=== PATIENT | male | born 1940 | race Caucasian/White ===

== ENCOUNTER 2018-08-16 19:40 | Inpatient (IN) ==
[2018-08-17] MEDS ORDERED: Melatonin 5 MG Tablet PO PRN (00:48)
[2018-08-17] MEDS ORDERED: Aluminum/Magnesium/Simethacone Susp 30 ML UDC PO PRN (00:48)
[2018-08-17] MEDS ORDERED: Acetaminophen 325 MG Tablet PO PRN (00:48)
[2018-08-17] MEDS ORDERED: Dextrose 50% in Water 50 ML Vial IV.PUSH PRN (00:53)
[2018-08-17] MEDS: Insulin NovoLOG Aspart Correctional Sugar Inj SQ SCH ×5 (04:05→20:46)
[2018-08-17] MEDS: Gabapentin 100 MG Capsule PO SCH ×2 (08:20→15:21)
[2018-08-17] MEDS: Amoxicillin/Clavulanate 875/125 MG Tablet PO SCH ×2 (09:00→21:52)
[2018-08-17] MEDS: Insulin Glargine Inj 1,000 UNITS/10 ML Vial SQ SCH ×2 (10:20→10:47)
--- NOTE | 2018-08-17 13:04 | P.HPPSY ---
Provisional Diagnosis Admission Date: August 17, 2018 00:37 Competence Certification of Person's Competence To Provide Express and Informed Consent I have personally examined Efra Ponce, a person being served at [facility] on, August 17, 2018 1257. Express and informed consent means consent voluntarily given in writing, by a competent person, after sufficient explanation and disclosure of the subject matter involved to enable the person to make a knowing and willful decision without any element of force, fraud, deceit, duress, or other form of constraint or coercion. This person is 18 years of age or older, is not now known to be incompetent to consent to treatment with a guardian advocate, and does not have a health care surrogate or proxy currently making medical treatment decisions. I have found this person to be one of the following: [X] Competent to provide express and informed consent, as defined above, for voluntary admission to this facility and is competent to provide express and informed consent for treatment. He/she has the consistent capacity to make well reasoned, willful, and knowing decisions concerning his or her medical or mental health treatment. The person fully and consistently understands the purpose of the admission for examination/placement and is fully capable of personally exercising all rights assured under [place] [] Incompetent to provide express and informed consent to voluntary admission, and this is incompetent to provide express and informed consent to treatment. The person must be transferred to involuntary status and a petition for a guardian advocate filed with the Circuit Court. [] Refusing to provide express and informed consent to voluntary admission but is competent to provide express and informed consent for treatment. The person must be discharged or transferred to involuntary status. Form shall be completed within 24 hours of a person's arrival at the receiving facility and filed in the clinical record of each person: 1. Admitted on a voluntary basis 2. Permitted to provide express and informed consent to his/her own treatment 3. Allowed to transfer from involuntary to voluntary status 4. Prior to permitting a person to consent to his or her own treatment after having been previously found incompetent to consent to treatment. History of Present Illness Capacity: Has capacity Chief Complaint: gout History of Present Illness: Patient is a 78-year-old male with a stated history of mood disorder. He is admitted to the hospital with suicidal ideation and plan to shoot himself with a gun. Today, patient admits to malingering for the purposes of getting medical treatment for his pain and his gout. Though, he is very circumstantial and a poor historian. Patient describes recent depressed mood. Says he has been he is feeling helpless and hopeless. He is complaining of generalized anxiety. Past psych: Patient used to see an outpatient psychiatrist named Dr. Arevalo. Patient claims that his psychiatrist told him to feign suicidal ideation to get treatment for mental health. Past medical: Gout. Medical medications include lisinopril, bumetanide, gabapentin, glipizide, Nitrostat, hydrocodone, aspirin, melatonin, fish oil, B12. Patient is asking for allopurinol, colchicine, indomethacin pain medication Past Famhx: "I do not know everybody ." Past Social: Patient has no family or children. Patient denies recent alcohol consumption but says he has a history of drinking - Inpatient Certification I certify that the inpatient services were ordered in accordance with Medicare regulations governing the order. This includes certification that hospital inpatient services are reasonable and necessary and in the case of services not specified as inpatient-only under 42 CFR 419.22(n), that they are appropriately provided as inpatient services in accordance to with the 2-midnight benchmark under 43 CFR 412.3(e) I certify that inpatient psychiatric hospital services are medically necessary. Evaluation and treatment and/or diagnostic testing are expected to improve the patient's condition. The patient needs on a daily basis, active treatment furnished directly by or requiring the supervision of inpatient psychiatric facility personnel. Estimated Total Length of Stay (Days): 7 Plans for Post Hospital Care: Not yet determined Review of Systems All other systems reviewed negative except as stated in [facility]PI [facility] - History History Provided By: Patient - Medical History Medical History: Medical History (Last Reviewed 08/17/18 @ 13:03 by Edgar Hill DO) Diabetes Gout Heart disease Hypokalemia - Tobacco History Second Hand Smoke Exposure: No Tobacco Use In Past 30 Days: No Smoking Status: Former smoker Tobacco Type: Cigarettes, Cigars - Alcohol History How Often Do You Have a Drink Containing Alcohol: Never - Substance Use History Substance History: No History of Abuse - Travel History Recent Travel in the [place] Within the Last 8 Weeks: No Recent Travel Out of the Country Within the Last 8 Weeks: No - Immunization History Tetanus Immunization: Unable to Assess Hx Influenza Vaccine This Season: Yes Medications and Allergies Active Medications: Active Medications Acetaminophen (Tylenol) 650 mg PO Q4H PRN PRN Reason: Pain 1-5 or Temp >101F Al Hydrox/Mg Hydrox/Simethicone (Mag-Al Plus Susp Liq) 30 ml PO Q6H PRN PRN Reason: DYSPEPSIA Al Hydroxide/Mg Hydroxide (Milk Of Magnesia Liq) 30 ml PO Q12H PRN PRN Reason: Mild Constipation Amoxicillin/Clavulanate Potassium (Augmentin 875/125 Mg) 1 tab PO Q12HR [facility] Last Admin: 08/17/18 09:00 Dose: 1 tab Aspirin (Ecotrin) 81 mg PO DAILY [facility] Last Admin: 08/17/18 08:21 Dose: 81 mg Cyanocobalamin (Vitamin B12) 100 mcg PO DAILY [facility] Last Admin: 08/17/18 09:00 Dose: 100 mcg Dextrose (D50w Vial) 50 ml IV.PUSH UNSCH PRN PRN Reason: PER HYPOGLYCEMIA PROTOCOL Doxycycline Hyclate (Vibramycin) 100 mg PO Q12HR [facility] Last Admin: 08/17/18 09:00 Dose: 100 mg Gabapentin (Neurontin) 100 mg PO TID [facility] Last Admin: 08/17/18 08:20 Dose: 100 mg Glucagon (Glucagon Inj) 1 mg OTHER PRN PRN PRN Reason: for Hypoglycemia Protocol Insulin Aspart (Novolog Insulin Correctional Sugar Inj) 0 unit SQ ACHS AND 3AM [facility]; Protocol Last Admin: 08/17/18 08:21 Dose: Not Given Insulin Glargine (Lantus Inj) 7 units SQ DAILY [facility] Last Admin: 08/17/18 10:47 Dose: 7 units Melatonin (Melatonin) 5 mg PO HS PRN PRN Reason: INSOMNIA Patient Own Med- (Omnicef 300mg) 0 each PO BID [facility] Allergies Allergy/AdvReac Type Severity Reaction Status Date / Time No Known Allergies Allergy Unverified 08/17/18 00:48 Home Medications Medication Instructions Recorded Confirmed Type amoxicillin-pot clavulanate 1 tab PO Q12H 08/17/18 08/17/18 History [Augmentin] aspirin 81 mg PO DAILY 08/17/18 08/17/18 History cefdinir 300 mg PO Q12H 08/17/18 08/17/18 History cyanocobalamin (vitamin B-12) 100 mcg PO DAILY 08/17/18 08/17/18 History doxycycline hyclate [Vibramycin] 100 mg PO BID 08/17/18 08/17/18 History gabapentin 100 mg PO Q8HR 08/17/18 08/17/18 History hydrocodone-acetaminophen 1 tab PO BID PRN 08/17/18 08/17/18 History insulin glargine [Lantus U-100 7 unit SUBCUT DAILY 08/17/18 08/17/18 History Insulin] omega-3 fatty acids-fish oil [Fish 1 cap PO DAILY 08/17/18 08/17/18 History Oil] Results - Labs Labs: Laboratory Results - last 24 hr 08/17/18 08/17/18 08/17/18 04:19 07:51 11:37 POC Glucose 107 106 107 Exam Vital signs: Vital Signs 08/16/18 23:00 08/17/18 05:15 Temperature 98.6 F 99.3 F Pulse Rate 83 83 Respiratory Rate 18 18 Blood Pressure 158/76 H 158/84 H Pulse Oximetry 92 L 92 L Intake & Output 08/16/18 08/17/18 08/17/18 18:59 06:59 18:59 Weight 110 kg Other: Date of Last Bowel Movement 08/15/18 Weight On Admission 110 kg Mental Status Examination Appearance: Appropriate Consciousness: Alert Orientation: x4 Motor Activity: Normal gait Speech: Unremarkable Language: Adequate Fund of Knowledge: Adequate Attention and Concentration: Adequate Memory: Unremarkable Mood: Sad Affect: Irritable Thought Process & Associations: Circumstantial Thought Content: Appropriate Hallucination Type: None Delusion Type: None Suicidal Ideation: No Suicidal Plan: No Suicidal Intention: No Homicidal Ideation: No Homicidal Plan: No Homicidal Intention: No Insight: Poor Judgment: Poor Assessment and Plan - Assessment (1) Mood disorder due to known physiological condition with depressive features Code(s): F06.31 - Mood disorder due to known physiological condition with depressive features Status: Acute - Plan Plan: Estimated LOS: [] days We will order lab work. Medicine will be consulted to reconcile his Nitrostat and gout medication and pain medication. Patient can sign voluntary. Justification for Continued Inpatient Stay: Patient would decompensate in a less restrictive setting
[2018-08-17] MEDS: OMNICEF 300 MG PO SCH ×2 (13:09→20:23)
[2018-08-17 14:54] LABS: Baso % (Auto) 0.4 % (0.0-2.0); Eos # (Auto) 0.2 th/mm3 (0.0-0.4); Eos % (Auto) 1.9 % (0.0-4.0); Lymph # (Auto) 0.6 th/mm3 (1.0-4.8); Lymph % (Auto) 7.8 % (9.0-44.0); Mean Corpuscular HGB Conc 34.3 % (32.0-36.0); Mean Corpuscular Hemoglobin 28.6 pg (27.0-34.0); Mean Corpuscular Volume 83.4 fL (80.0-100.0); Mean Platelet Volume 6.8 fL (7.0-11.0); Mono # (Auto) 0.6 th/mm3 (0.0-0.9); Mono % (Auto) 7.5 % (0.0-8.0); Neut # (Auto) 6.5 th/mm3 (1.8-7.7); Neut % (Auto) 82.4 % (16.0-70.0); Platelet Count 194 th/mm3 (150-450); Red Blood Count 3.47 mil/mm3 (4.50-5.90); Red Cell Distribution Width 15.2 % (11.6-17.2); White Blood Count 7.9 th/mm3 (4.0-11.0)
[2018-08-17 15:17] LABS: Alanine Aminotransferase 11 U/L (12-78); Albumin 2.3 g/dL (3.4-5.0); Anion Gap 8 meq/L (5-15); Aspartate Aminotransferase 13 U/L (15-37); Blood Urea Nitrogen 28 mg/dL (7-18); Calcium 8.1 mg/dL (8.5-10.1); Carbon Dioxide 23.7 meq/L (21.0-32.0); Chloride 109 meq/L (98-107); Glomerular Filtration Rate 41 mL/min (>89); Glucose,Random 143 mg/dL (74-106); Sodium 141 meq/L (136-145)
[2018-08-17 15:19] LABS: Alkaline Phosphatase 52 U/L (45-117); Total Protein 6.5 g/dL (6.4-8.2)
--- NOTE | 2018-08-17 16:43 | P.CON ---
History of Present Illness Service: [facility] Consult date: 08/17/18 Requesting Physician: Asif Bueno Reason for Consult: Determine need for pain medication and reconciliation of medication Primary Care Provider: No Primary Care Physician Chief Complaint: I am okay History of Present Illness: Patient is a 78-year-old male with past medical history of gout, HTN, DM 2 who initially came into the hospital for suicidal ideation. Per review of records patient plan to shoot himself with a gun. He is now admitted to inpatient psychiatry unit for further evaluation. Consulted for assistance with pain management. Patient seen and examined today laying in bed. Patient is asleep. Irritable when aroused. Started yelling "what he want, I am okay do not bother me." As per nursing, patient has been adamant of asking for his gout medication. He was not given any medications to sedate him. He got his gabapentin this morning but has not been given any pain medications or any anxiolytics. Review of Systems unobtainable due to mental status PMFSH - History History Provided By: Patient - Medical History Medical History: Medical History (Last Reviewed 08/17/18 @ 17:27 by ALLAN Dugan) Diabetes Gout Heart disease Hypokalemia - Social History I have reviewed the patient's Social History: Yes - Tobacco History Second Hand Smoke Exposure: No Tobacco Use In Past 30 Days: No Smoking Status: Former smoker Tobacco Type: Cigarettes, Cigars - Alcohol History How Often Do You Have a Drink Containing Alcohol: Never - Substance Use History Substance History: No History of Abuse - Travel History Recent Travel in the [place] Within the Last 8 Weeks: No Recent Travel Out of the Country Within the Last 8 Weeks: No - Immunization History Tetanus Immunization: Unable to Assess Hx Influenza Vaccine This Season: Yes Medications and Allergies Active Medications: Active Medications Acetaminophen (Tylenol) 650 mg PO Q4H PRN PRN Reason: Pain 1-5 or Temp >101F Al Hydrox/Mg Hydrox/Simethicone (Mag-Al Plus Susp Liq) 30 ml PO Q6H PRN PRN Reason: DYSPEPSIA Al Hydroxide/Mg Hydroxide (Milk Of Magnesia Liq) 30 ml PO Q12H PRN PRN Reason: Mild Constipation Amoxicillin/Clavulanate Potassium (Augmentin 875/125 Mg) 1 tab PO Q12HR [facility] Last Admin: 08/17/18 09:00 Dose: 1 tab Aspirin (Ecotrin) 81 mg PO DAILY [facility] Last Admin: 08/17/18 08:21 Dose: 81 mg Cyanocobalamin (Vitamin B12) 100 mcg PO DAILY [facility] Last Admin: 08/17/18 09:00 Dose: 100 mcg Dextrose (D50w Vial) 50 ml IV.PUSH UNSCH PRN PRN Reason: PER HYPOGLYCEMIA PROTOCOL Doxycycline Hyclate (Vibramycin) 100 mg PO Q12HR [facility] Last Admin: 08/17/18 09:00 Dose: 100 mg Gabapentin (Neurontin) 100 mg PO TID [facility] Last Admin: 08/17/18 15:21 Dose: Not Given Glucagon (Glucagon Inj) 1 mg OTHER PRN PRN PRN Reason: for Hypoglycemia Protocol Insulin Aspart (Novolog Insulin Correctional Sugar Inj) 0 unit SQ ACHS AND 3AM [facility]; Protocol Last Admin: 08/17/18 13:09 Dose: Not Given Insulin Glargine (Lantus Inj) 7 units SQ DAILY [facility] Last Admin: 08/17/18 10:47 Dose: 7 units Melatonin (Melatonin) 5 mg PO HS PRN PRN Reason: INSOMNIA Patient Own Med- (Omnicef 300mg) 0 each PO BID [facility] Last Admin: 08/17/18 13:09 Dose: Not Given Allergies Allergy/AdvReac Type Severity Reaction Status Date / Time No Known Allergies Allergy Unverified 08/17/18 00:48 Home Medications Medication Instructions Recorded Confirmed Type amoxicillin-pot clavulanate 1 tab PO Q12H 08/17/18 08/17/18 History [Augmentin] aspirin 81 mg PO DAILY 08/17/18 08/17/18 History cefdinir 300 mg PO Q12H 08/17/18 08/17/18 History cyanocobalamin (vitamin B-12) 100 mcg PO DAILY 08/17/18 08/17/18 History doxycycline hyclate [Vibramycin] 100 mg PO BID 08/17/18 08/17/18 History gabapentin 100 mg PO Q8HR 08/17/18 08/17/18 History hydrocodone-acetaminophen 1 tab PO BID PRN 08/17/18 08/17/18 History insulin glargine [Lantus U-100 7 unit SUBCUT DAILY 08/17/18 08/17/18 History Insulin] omega-3 fatty acids-fish oil [Fish 1 cap PO DAILY 08/17/18 08/17/18 History Oil] Physical Exam Vital signs: Vital Signs 08/16/18 23:00 08/17/18 05:15 Temperature 98.6 F 99.3 F Pulse Rate 83 83 Respiratory Rate 18 18 Blood Pressure 158/76 H 158/84 H Pulse Oximetry 92 L 92 L Intake & Output 08/16/18 08/17/18 08/17/18 18:59 06:59 18:59 Weight 110 kg Other: Date of Last Bowel Movement 08/15/18 Weight On Admission 110 kg Narrative: GENERAL: This is a obese, elder male, in no apparent distress. SKIN: Warm and dry. HEENT: Normocephalic. Nose without bleeding. Airway patent. NECK: Trachea midline. CARDIOVASCULAR: Regular rate and rhythm without murmurs, gallops, or rubs. RESPIRATORY:Breath sounds equal bilaterally. No wheezes, rales, or rhonchi. Snoring, GASTROINTESTINAL: Abdomen soft, non-tender, nondistended. Bowel Sounds normoactive x4. MUSCULOSKELETAL: Extremities without clubbing, cyanosis. Bilat foot trace edema. No notable joint erythema or significant edema in bilateral elbows, bilateral hands, bilateral knees, bilateral ankles, bilateral toes. NEUROLOGICAL: Drowsy. Moves all extremities. Normal speech. Assessment and Plan - Plan Patient is a 78-year-old male with past medical history of gout, HTN, DM 2 who initially came into the hospital for suicidal ideation. Per review of records patient plan to shoot himself with a gun. He is now admitted to inpatient psychiatry unit for further evaluation. Consulted for assistance with pain management. Suicidal ideation, depression, mood disorder -Managed by psychiatry team Gout Chronic pain -Does not appear to have a flareup. -Patient has possibly chronic pain on chronic pain management. [facility] Prescription Drug Monitoring Database has been queried and verified, noted that patient is on hydrocodone/acetaminophen 10/325 mg. -Patient is drowsy, can barely have a conversation. We will not start him on any pain medication. HTN, uncontrolled HLD -Continue with home medication aspirin -We will give Norvasc 5 mg daily -Monitor BP trend DM 2 Diabetic neuropathy -Continue with Lantus -Continue with insulin sliding scale -Monitor for hypoglycemia -On gabapentin, received a dose this morning. Will monitor and off secondary to sedation Urinary tract infection -Patient is on Augmentin, doxycycline from the outpatient. We will continue for now. -Repeat UA Acute kidney injury and possibly chronic kidney disease -Current creatinine 1.64. Unknown baseline. -If patient continues to be drowsy and unable to hydrate well. -IV fluids, monitor for overload -Avoid nephrotoxins -Monitor renal indices Lethargic -Possibly secondary to multiple factors, patient's increasing creatinine, as well as has gotten some medications this morning that could affect him. -02 supplement as needed, keep O2 sat greater than 90% -May benefit with transfer to medical psychiatry unit for closer monitoring, possible IV fluids use. DVT prop, heparin Discussed Condition With: Patient, nursing Discharge Planning: DC disposition by primary team
[2018-08-17] MEDS: Heparin - SQ 10,000 UNITS/ML Vial SQ SCH (21:52)
[2018-08-18] MEDS: Sod Chloride 0.9% Inj 1,000 ML IV.CONT SCH ×3 (04:56→21:03)
[2018-08-18] MEDS: Insulin NovoLOG Aspart Correctional Sugar Inj SQ SCH ×5 (04:57→20:43)
[2018-08-18 08:02] LABS: Baso % (Auto) 0.4 % (0.0-2.0); Eos # (Auto) 0.1 th/mm3 (0.0-0.4); Eos % (Auto) 1.2 % (0.0-4.0); Hematocrit 29.2 % (39.0-51.0); Hemoglobin 9.8 gm/dL (13.0-17.0); Lymph # (Auto) 0.6 th/mm3 (1.0-4.8); Lymph % (Auto) 7.2 % (9.0-44.0); Mean Corpuscular HGB Conc 33.6 % (32.0-36.0); Mean Corpuscular Volume 83.2 fL (80.0-100.0); Mean Platelet Volume 6.7 fL (7.0-11.0); Mono # (Auto) 0.6 th/mm3 (0.0-0.9); Mono % (Auto) 7.2 % (0.0-8.0); Platelet Count 200 th/mm3 (150-450); Red Blood Count 3.51 mil/mm3 (4.50-5.90); Red Cell Distribution Width 15.5 % (11.6-17.2); White Blood Count 8.3 th/mm3 (4.0-11.0)
[2018-08-18 08:23] LABS: Albumin 2.4 g/dL (3.4-5.0); Anion Gap 8 meq/L (5-15); Blood Urea Nitrogen 28 mg/dL (7-18); Calcium 8.3 mg/dL (8.5-10.1); Carbon Dioxide 22.7 meq/L (21.0-32.0); Chloride 110 meq/L (98-107); Glomerular Filtration Rate 49 mL/min (>89); Glucose,Random 100 mg/dL (74-106); Potassium 3.9 meq/L (3.5-5.1); Sodium 141 meq/L (136-145)
[2018-08-18 08:24] LABS: Aspartate Aminotransferase 16 U/L (15-37); Cholesterol 132 mg/dL (120-200); Triglycerides 114 mg/dL (42-150)
[2018-08-18 08:28] LABS: Alanine Aminotransferase 15 U/L (12-78); Alkaline Phosphatase 51 U/L (45-117); Chol/HDL Ratio 3.67 Ratio; HDL Cholesterol 35.9 mg/dL (40.0-60.0); LDL Cholesterol,Calculated 73 mg/dL (0-99); Total Protein 6.4 g/dL (6.4-8.2)
--- NOTE | 2018-08-18 08:30 | P.PN ---
Subjective Interval history: Follow-up visit gout flareup, DM 2, HTN. Patient seen and examined today. Awake alert. Forgetful. States that he knows he is at [facility]. States that he was transferred from [facility] and he thought that he was going to [facility] in [facility]. States he is taking Bumex twice a day at home for his kidneys and also taking potassium pills. Discussed with patient results of his labs having elevated kidney function. States that he was dehydrated for the past 2 days. But his main concern is bilateral elbow swelling and pain that has been bothering him. States that his doctor did not give him regular gout medications. Otherwise, denies SOB/ dyspnea. Denies chest pain, palpitations, headaches, dizziness. Denies fevers, chills, n/v/d. Denies dysuria. Physical Exam Vital signs: Vital Signs 08/17/18 17:52 08/17/18 19:13 08/18/18 06:21 Temperature 98.4 F 98.5 F 98.0 F Pulse Rate 70 79 87 Respiratory Rate 20 20 16 Blood Pressure 141/73 H 131/63 150/84 H Pulse Oximetry 94 L 98 08/18/18 07:47 Temperature Pulse Rate Respiratory Rate Blood Pressure Pulse Oximetry 97 Intake & Output 08/17/18 08/18/18 08/18/18 18:59 06:59 18:59 Intake Total 120 / 120 Balance 120 / 120 Weight 108.3 kg Intake: Oral 120 / 120 Other: # Voids 1 Narrative: GENERAL: This is a obese, elder male, in no apparent distress. SKIN: Warm and dry. HEENT: Normocephalic. Nose without bleeding. Airway patent. NECK: Trachea midline. CARDIOVASCULAR: Regular rate and rhythm without murmurs, gallops, or rubs. RESPIRATORY:Breath sounds equal bilaterally. No wheezes, rales, or rhonchi. Snoring, GASTROINTESTINAL: Abdomen soft, non-tender, nondistended. Bowel Sounds normoactive x4. MUSCULOSKELETAL: Extremities without clubbing, cyanosis. Bilat foot trace edema. Bilateral elbow erythema, edema, tenderness to light palpation. NEUROLOGICAL: Moves all extremities. Normal speech. Results - Labs CBC & Chem 7: 08/18/18 07:50 08/18/18 07:50 Laboratory Results - last 24 hr 08/17/18 08/17/1818 11:37 14:20 14:20 WBC 7.9 RBC 3.47 L Hgb 10.0 L Hct 29.0 L MCV 83.4 MCH 28.6 MCHC 34.3 RDW 15.2 Plt Count 194 MPV 6.8 L Neut % (Auto) 82.4 H Lymph % (Auto) 7.8 L [place] % (Auto) 7.5 Eos % (Auto) 1.9 Baso % (Auto) 0.4 Neut # (Auto) 6.5 Lymph # (Auto) 0.6 L [place] # (Auto) 0.6 Eos # (Auto) 0.2 Baso # (Auto) 0.0 WBC Differential . Differential Comment Auto diff final Sodium 141 Potassium 4.0 Chloride 109 H Carbon Dioxide 23.7 Anion Gap 8 BUN 28 H Creatinine 1.64 H Estimated GFR 41 L POC Glucose 107 Random Glucose 143 H Calcium 8.1 L Total Bilirubin 0.4 AST 13 L ALT 11 L Alkaline Phosphatase 52 Ammonia Total Protein 6.5 Albumin 2.3 L Triglycerides Cholesterol LDL Cholesterol, Calc HDL Cholesterol Cholesterol/HDL Ratio 08/17/18 08/17/18 08/17/18 14:55 20:26 20:30 WBC RBC Hgb Hct MCV MCH MCHC RDW Plt Count MPV Neut % (Auto) Lymph % (Auto) [place] % (Auto) Eos % (Auto) Baso % (Auto) Neut # (Auto) Lymph # (Auto) [place] # (Auto) Eos # (Auto) Baso # (Auto) WBC Differential Differential Comment Sodium Potassium Chloride Carbon Dioxide Anion Gap BUN Creatinine Estimated GFR POC Glucose 164 H 271 H 109 Random Glucose Calcium Total Bilirubin AST ALT Alkaline Phosphatase Ammonia Total Protein Albumin Triglycerides Cholesterol LDL Cholesterol, Calc HDL Cholesterol Cholesterol/HDL Ratio 08/18/18 08/18/18 08/18/18 00:27 04:25 07:43 WBC RBC Hgb Hct MCV MCH MCHC RDW Plt Count MPV Neut % (Auto) Lymph % (Auto) [place] % (Auto) Eos % (Auto) Baso % (Auto) Neut # (Auto) Lymph # (Auto) [place] # (Auto) Eos # (Auto) Baso # (Auto) WBC Differential Differential Comment Sodium Potassium Chloride Carbon Dioxide Anion Gap BUN Creatinine Estimated GFR POC Glucose 202 H 101 104 Random Glucose Calcium Total Bilirubin AST ALT Alkaline Phosphatase Ammonia Total Protein Albumin Triglycerides Cholesterol LDL Cholesterol, Calc HDL Cholesterol Cholesterol/HDL Ratio 08/18/18 08/18/18 08/18/18 07:50 07:50 07:50 WBC 8.3 RBC 3.51 L Hgb 9.8 L Hct 29.2 L MCV 83.2 MCH 28.0 MCHC 33.6 RDW 15.5 Plt Count 200 MPV 6.7 L Neut % (Auto) 84.0 H Lymph % (Auto) 7.2 L [place] % (Auto) 7.2 Eos % (Auto) 1.2 Baso % (Auto) 0.4 Neut # (Auto) 7.0 Lymph # (Auto) 0.6 L [place] # (Auto) 0.6 Eos # (Auto) 0.1 Baso # (Auto) 0.0 WBC Differential . Differential Comment Auto diff final Sodium 141 Potassium 3.9 Chloride 110 H Carbon Dioxide 22.7 Anion Gap 8 BUN 28 H Creatinine 1.41 H Estimated GFR 49 L POC Glucose Random Glucose 100 Calcium 8.3 L Total Bilirubin 0.5 AST 16 ALT 15 Alkaline Phosphatase 51 Ammonia 19 Total Protein 6.4 Albumin 2.4 L Triglycerides 114 Cholesterol 132 LDL Cholesterol, Calc 73 HDL Cholesterol 35.9 L Cholesterol/HDL Ratio 3.67 Assessment and Plan - Plan Patient is a 78-year-old male with past medical history of gout, HTN, DM 2 who initially came into the hospital for suicidal ideation. Per review of records patient plan to shoot himself with a gun. He is now admitted to inpatient psychiatry unit for further evaluation. Consulted for assistance with pain management. Suicidal ideation, depression, mood disorder -Managed by psychiatry team Gout Chronic pain -Does not appear to have a flareup. -Patient has possibly chronic pain on chronic pain management. [facility] [place] has been queried and verified, noted that patient is on hydrocodone/acetaminophen 10/325 mg. -Will give colchicine 1.2 mg x1 dose now, 0.6 mg an hour after. 0.6 mg daily times 3-5 days. -Monitor renal indicis. -Initiate allopurinol after at 100mg daily pos on DC -If needing pain meds, may benefit lower dose of norco 5/325 instead of 10/ 325 HTN, uncontrolled HLD -Continue with home medication aspirin -Norvasc 5 mg daily, clonidine PRN -Monitor BP trend DM 2 Diabetic neuropathy -Continue with Lantus, states he is not on infectible at home, may need to transition to PO -avoid metformin unless improved kidney function/ can use Januvia 50mg daily -Continue with insulin sliding scale -Monitor for hypoglycemia -On gabapentin, received a dose this morning. Will monitor and off secondary to sedation Urinary tract infection -Patient is on Augmentin, doxycycline from the outpatient. We will continue for now. -Repeat UA Acute kidney injury and possibly chronic kidney disease -Current creatinine 1.64. Unknown baseline. -IV fluids, monitor for overload -Avoid nephrotoxins -Monitor renal indices -States taking bumex BID, need to do med rec Episode of Lethargy - resolved -Possibly secondary to multiple factors, patient's increasing creatinine, as well as has gotten some medications this morning that could affect him. -02 supplement as needed, keep O2 sat greater than 90% -Avoid over sedation with narcotics and sedatives DVT prop, heparin patient does not remember all his medications. He will need med rec. He states he uses [facility] in [place]. Closed today. [facility] [place] [address], [place] [address] Code Status: Full Code Discussed Condition With: Patient, nursing Discharge Planning: DC disposition by primary team
[2018-08-18] MEDS: amLODIPine 5 MG Tablet PO SCH (08:43)
[2018-08-18] MEDS: Amoxicillin/Clavulanate 875/125 MG Tablet PO SCH ×2 (08:43→20:26)
[2018-08-18] MEDS: Heparin - SQ 10,000 UNITS/ML Vial SQ SCH ×2 (08:43→20:26)
[2018-08-18] MEDS: Gabapentin 100 MG Capsule PO SCH ×3 (08:43→17:57)
[2018-08-18] MEDS: OMNICEF 300 MG PO SCH ×2 (08:44→20:31)
[2018-08-18] MEDS: Insulin Glargine Inj 1,000 UNITS/10 ML Vial SQ SCH (09:14)
--- NOTE | 2018-08-18 14:00 | P.PNPSY ---
Subjective Chief Complaint: gout Remarks: Patient was seen and case discussed with nursing. Patient continues to be vague and not consistent with a suicidal ideation. When asked about it today he says "maybe I will get to it." Remains fixated on his gout. Affect is irritable Mental Status Examination Appearance: Appropriate Consciousness: Alert Orientation: x4 Motor Activity: Normal gait Speech: Unremarkable Language: Adequate Fund of Knowledge: Adequate Attention and Concentration: Adequate Memory: Unremarkable Mood: Appropriate Affect: Irritable Thought Process & Associations: Disorganized Thought Content: Appropriate Hallucination Type: None Delusion Type: None Suicidal Ideation: No Suicidal Plan: No Suicidal Intention: No Homicidal Ideation: No Homicidal Plan: No Homicidal Intention: No Insight: Poor Judgment: Poor Assessment and Plan - Assessment (1) Mood disorder due to known physiological condition with depressive features Code(s): F06.31 - Mood disorder due to known physiological condition with depressive features Status: Acute - Plan Plan: Continue current treatment plan Justification for Continued Inpatient Stay: Patient would decompensate in a less restrictive setting
[2018-08-18 14:20] LABS: Hemoglobin A1c 5.6 % (4.3-6.0)
--- NOTE | 2018-08-18 15:28 | ECG ---
Date Performed: 08/17/2018 Time Performed: 13:32:07 PTAGE: 78 years EKG: Sinus rhythm EXTREME RIGHT AXIS DEVIATION GENERALIZED LOW VOLTAGE RIGHT VENTRICULAR CONDUCTION DISTURBANCE NONSPE CIFIC T-WAVE CHANGE POOR R WAVE PROGRESSION ACROSS THE PRECORDIUM, CANNOT EXCLUDE ANTERIOR MYOCARDIAL INFARCTION , OF UNDETERMINED AGE ABNORMAL ECG NO PREVIOUS TRACING DOCTOR: Peter Manriquez Interpretating Date/Time 08/18/2018 15:26:50
[2018-08-19] MEDS: Insulin NovoLOG Aspart Correctional Sugar Inj SQ SCH ×4 (03:02→20:42)
[2018-08-19 08:13] LABS: Calcium 8.4 mg/dL (8.5-10.1); Carbon Dioxide 22.5 meq/L (21.0-32.0); Potassium 3.8 meq/L (3.5-5.1)
[2018-08-19] MEDS: Heparin - SQ 10,000 UNITS/ML Vial SQ SCH ×2 (09:22→20:31)
[2018-08-19] MEDS: Amoxicillin/Clavulanate 875/125 MG Tablet PO SCH ×2 (09:23→20:32)
[2018-08-19] MEDS: Insulin Glargine Inj 1,000 UNITS/10 ML Vial SQ SCH (09:23)
[2018-08-19] MEDS: Gabapentin 100 MG Capsule PO SCH ×2 (09:23→13:49)
[2018-08-19] MEDS: OMNICEF 300 MG PO SCH ×2 (09:23→20:32)
[2018-08-19] MEDS: amLODIPine 5 MG Tablet PO SCH ×2 (09:23→20:32)
[2018-08-19] MEDS: Sod Chloride 0.9% Inj 1,000 ML IV.CONT SCH (13:09)
--- NOTE | 2018-08-19 16:23 | P.PNPSY ---
Subjective Chief Complaint: gout Remarks: Patient seen for follow-up, chart reviewed. Discussion with nursing staff reported that patient noted to be forgetful at times, reporting suicide ideation last night, alert and oriented x3. Patient was found lying hospital bed noted to be slightly irritable but cooperative with interview. Patient recently admitted due to suicidal ideations with plan to shoot self was reporting feeling helpless and hopeless upon admission. Patient state he is feeling "the same" continues report feeling depressed because of his gout. Patient reports not having support with no family or friends. Patient states he has a history of depression and anxiety in the past which she reports and recalls only having taken Xanax in the past. Patient reports he had terrible sleep last night. Patient states "if I can get sleep and get got under control I would be suicidal". Patient states that he is concerned about his current medical conditions, alert and oriented x3, denying any suicidal homicidal ideation at this time. Patient denies any perceptional services. Review of Systems All other systems reviewed negative except as stated in HPI Mental Status Examination Appearance: Appropriate Consciousness: Alert Orientation: x4 Motor Activity: Normal gait Speech: Unremarkable Language: Adequate Fund of Knowledge: Adequate Attention and Concentration: Adequate Memory: Unremarkable Mood: Sad Affect: Irritable (Slightly), Sad Thought Process & Associations: Disorganized (At times mostly concrete) Thought Content: Appropriate Hallucination Type: None Delusion Type: None Suicidal Ideation: No Suicidal Plan: No Suicidal Intention: No Homicidal Ideation: No Homicidal Plan: No Homicidal Intention: No Insight: Poor Judgment: Poor Assessment and Plan - Assessment (1) Mood disorder due to known physiological condition with depressive features Code(s): F06.31 - Mood disorder due to known physiological condition with depressive features Status: Acute - Plan Plan: Patient this time reporting depressed mood related to his current medical conditions and endorsing suicide ideation still. We will start patient on sertraline 25 mg x1 and 50 mg p.o. daily thereafter for depression. We will also have diphenhydramine 25 mg at bedtime as needed for insomnia. We will continue to monitor mood and behavior. Hospitalist input appreciated. Discharge planning in progress. Justification for Continued Inpatient Stay: At risk of further decompensation at lower level care.
[2018-08-19] MEDS ORDERED: Sertraline 50 MG Tablet PO ONE (17:00)
--- NOTE | 2018-08-19 18:16 | P.PNIM ---
Subjective Interval history: Follow-up visit gout flareup, DM 2, HTN, heart disease, shortness of breath. Patient seen and examined laying in bed, denies any chest pain or shortness of breath at this time states that shortness of breath with exertion. Complains of bilateral elbow pain stated from his gout, complains he did not get his medication since admission. Patient stated he always have it which is chronic, also complained of right heel area pain, gout pain. Patient denies any fever or chills, denies headache or dizziness, denies diarrhea or constipation. Physical Exam Vital signs: Intake & Output 08/18/18 08/19/18 08/19/18 18:59 06:59 18:59 Intake Total 960 / 960 1600 / 1600 2200 / 2200 Balance 960 / 960 1600 / 1600 2200 / 2200 Intake: IV 1000 / 1000 1000 / 1000 NS Inj 1,000 ML @ 75 mls/hr IV. 1000 / 1000 1000 / 1000 CONT .[id number] ZEKE Rx#:[id number] Oral 960 / 960 600 / 600 1200 / 1200 Other: # Voids 5 3 Date of Last Bowel Movement 08/18/18 08/18/18 08/18/18 # Bowel Movements 2 Narrative: GENERAL: Well-developed, well-nourished, obese male with no apparent distress SKIN: Warm and dry. Bilateral elbow redness and edema, right heel redness and edema. Bilateral upper arm ecchymosis HEAD: Atraumatic. Normocephalic. EYES: Pupils equal and round. No scleral icterus. No injection or drainage. ENT: No nasal bleeding or discharge. Mucous membranes pink and moist. NECK: Trachea midline. No JVD. CARDIOVASCULAR: Regular rate and rhythm. RESPIRATORY: No accessory muscle use. Fine rails on bilateral lower lobes on auscultation. Breath sounds equal bilaterally. GASTROINTESTINAL: Abdomen obese, soft, non-tender, nondistended. Hepatic and splenic margins not palpable. MUSCULOSKELETAL: Extremities without clubbing, cyanosis. Bilateral lower extremity trace edema. No obvious deformities. NEUROLOGICAL: Awake and alert. No obvious cranial nerve deficits. Motor grossly within normal limits. Generalized weakness, moving all 4 extremities. Normal speech. PSYCHIATRIC: Appropriate mood and affect; insight and judgment unreliable, cooperative Results - Labs CBC & Chem 7: 08/18/18 07:50 08/19/18 07:17 Laboratory Results - last 24 hr 08/18/18 08/19/18 08/19/18 20:41 07:17 11:16 Sodium 143 Potassium 3.8 Chloride 112 H Carbon Dioxide 22.5 Anion Gap 9 BUN 22 H Creatinine 1.21 Estimated GFR 58 L POC Glucose 141 H 133 H Random Glucose 94 Calcium 8.4 L 08/19/18 16:33 Sodium Potassium Chloride Carbon Dioxide Anion Gap BUN Creatinine Estimated GFR POC Glucose 123 H Random Glucose Calcium Assessment and Plan - Assessment (1) Gout Code(s): M10.9 - Gout, unspecified Status: Acute (2) Hypertension Code(s): I10 - Essential (primary) hypertension Status: Acute (3) Mood disorder due to known physiological condition with depressive features Code(s): F06.31 - Mood disorder due to known physiological condition with depressive features Status: Acute - Plan Patient is a 78-year-old male with past medical history of gout, HTN, DM 2 who initially came into the hospital for suicidal ideation. Per review of records patient plan to shoot himself with a gun. He is now admitted to inpatient psychiatry unit for further evaluation. Consulted for assistance with pain management. Gout Chronic pain -Does not appear to have a flareup. -Patient has possibly chronic pain on chronic pain management. [facility] Prescription Drug Monitoring Database has been queried and verified, noted that patient is on hydrocodone/acetaminophen 10/325 mg. -Will give colchicine 1.2 mg x1 dose now, 0.6 mg an hour after. 0.6 mg daily times 3-5 days. -Monitor renal indicis. -Initiate allopurinol after at 100mg daily pos on DC -If needing pain meds, may benefit from ibuprofen if no hx of GI bleed Hx Heart Disease -no CP, c/o SOB on exertion -ECG Sinus rhythm -on O2 2L via NC -CXray to r/o effusion -continue Aspirin HTN, uncontrolled HLD BP Elevated -increase Norvasc 5 mg bid with hold parameters, clonidine PRN -Monitor BP trend DM 2 Diabetic neuropathy -Continue with Lantus, states he is not on infectible at home, may need to transition to PO -avoid metformin unless improved kidney function/ can use Januvia 50mg daily -Continue with insulin sliding scale -Monitor for hypoglycemia -On gabapentin, received a dose this morning. Will monitor and hold for sedation Urinary tract infection -Patient is on Augmentin, doxycycline from the outpatient. We will continue for now. -Repeat UA if symptoms persist Acute kidney injury and possibly chronic kidney disease -creatinine improving 1.64 on admission, today 1.21. Unknown baseline. -s/p IV fluids, discontinued for fine rales, monitor for overload -Avoid nephrotoxins -Monitor renal indices -States taking Bumex BID, not listed on med rec, needs to reconcile med Episode of Lethargy - resolved -Possibly secondary to multiple factors, patient's increasing creatinine, or most likely effect from sedative medications -02 supplement as needed, keep O2 sat greater than 90% -Avoid over sedation with narcotics and sedatives Suicidal ideation, depression, mood disorder -Managed by psychiatry team DVT prop, heparin Code Status: full code Discussed Condition With: patient and nurse
--- NOTE | 2018-08-19 18:39 | XR ---
EXAM DATE: 08/19/2018 12:00 AM EDT AGE/SEX: 78 years / Male INDICATIONS: Short of breath CLINICAL DATA: This is the patient's initial encounter. Patient reports that signs and symptoms have been present for 2 days and indicates a pain score of 0/10. MEDICAL/SURGICAL HISTORY: Congestive heart failure. None. COMPARISON: No prior exams available for comparison. FINDINGS: Mild basilar opacity, probably atelectasis. Trace pleural fluid. No pneumothorax. Heart size enlarged . CONCLUSION: Mild basilar opacity, probably subsegmental atelectasis with trace pleural fluid. Electronically signed by: Daniel Parada MD 08/19/2018 6:37 PM EDT
[2018-08-20] MEDS: Gabapentin 100 MG Capsule PO SCH ×5 (10:35→19:01)
[2018-08-20] MEDS: Insulin NovoLOG Aspart Correctional Sugar Inj SQ SCH ×4 (10:35→21:07)
[2018-08-20] MEDS: Heparin - SQ 10,000 UNITS/ML Vial SQ SCH ×2 (10:36→22:19)
[2018-08-20] MEDS: Sertraline 50 MG Tablet PO SCH (10:36)
[2018-08-20] MEDS: OMNICEF 300 MG PO SCH ×2 (10:37→22:20)
[2018-08-20] MEDS: Amoxicillin/Clavulanate 875/125 MG Tablet PO SCH ×2 (10:37→22:19)
[2018-08-20] MEDS: amLODIPine 5 MG Tablet PO SCH ×2 (10:37→22:20)
[2018-08-20] MEDS: Insulin Glargine Inj 1,000 UNITS/10 ML Vial SQ SCH (10:37)
--- NOTE | 2018-08-20 15:54 | P.PNPSY ---
Subjective Chief Complaint: gout Remarks: Patient seen for follow up; chart reviewed. Discussion with nursing staff that patient had difficulty sleeping last evening, patient with physical therapy today reporting less pain today. Patient was found sitting hospital chair asleep was able to wake up for interview noted to be irritable stating that he did not sleep at all less evening he states that he continued to have pain from his gout but it is "easing up". Patient reports having had some loose stools, states that his mood has been the same stating "if I get no sleep I am grumpy". Patient denying any suicide ideations at this time. Review of Systems All other systems reviewed negative except as stated in HPI Mental Status Examination Appearance: Appropriate Consciousness: Alert Orientation: x4 Motor Activity: Normal gait Speech: Unremarkable Language: Adequate Fund of Knowledge: Adequate Attention and Concentration: Adequate Memory: Unremarkable Mood: Irritable Affect: Irritable (Slightly) Thought Process & Associations: Disorganized (At times mostly concrete) Thought Content: Appropriate Hallucination Type: None Delusion Type: None Suicidal Ideation: No Suicidal Plan: No Suicidal Intention: No Homicidal Ideation: No Homicidal Plan: No Homicidal Intention: No Insight: Poor Judgment: Poor Assessment and Plan - Assessment (1) Mood disorder due to known physiological condition with depressive features Code(s): F06.31 - Mood disorder due to known physiological condition with depressive features Status: Acute - Plan Plan: Patient this time continues with irritability due to poor sleep less evening denying any suicide ideations stating that his gout pain is improving. We will continue current treatment. We will increase diphenhydramine to 50 mg p.o. at bedtime for sleep disturbance. We will continue to monitor mood and behavior. Discharge planning in progress. Justification for Continued Inpatient Stay: At risk of further decompensation at lower level care.
--- NOTE | 2018-08-20 19:07 | P.PNIM ---
Subjective Interval history: Follow-up visit gout flareup, DM 2, HTN, heart disease, shortness of breath. Patient seen and examined laying in bed, denies any shortness of breath at this time, off of oxygen. Patient denies any headache or dizziness, denies any chest pain, abdominal pain, nausea or vomiting. Patient complained of left elbow pain from the gout however improved from yesterday. Stated the right elbow is better. Physical Exam Vital signs: Vital Signs 08/19/18 19:27 08/20/18 06:00 08/20/18 09:06 Temperature 98.5 F Pulse Rate 82 Respiratory Rate 17 Blood Pressure 184/92 H Pulse Oximetry 96 95 97 08/20/18 17:49 08/20/18 18:26 Temperature 98.1 F Pulse Rate 70 Respiratory Rate 17 Blood Pressure 142/65 H Pulse Oximetry 97 93 L Intake & Output 08/19/18 08/20/18 08/20/18 18:59 06:59 18:59 Intake Total 2200 / 2200 720 / 720 720 / 720 Output Total 2 / 2 Balance 2200 / 2200 720 / 720 718 / 718 Weight 109.4 kg Intake: IV 1000 / 1000 NS Inj 1,000 ML @ 75 mls/hr IV. 1000 / 1000 CONT .[id number] ZEKE Rx#:[id number] Oral 1200 / 1200 720 / 720 720 / 720 Output: Urine 2 / 2 Other: # Voids 2 Date of Last Bowel Movement 08/18/18 08/18/18 08/20/18 # Incontinent Bowel Movements 1 Narrative: GENERAL: Well-developed, well-nourished, obese male with no apparent distress SKIN: Warm and dry. Left elbow redness and edema, right elbow redness improved , right heel redness improved. Bilateral upper arm ecchymosis HEAD: Atraumatic. Normocephalic. EYES: Pupils equal and round. No scleral icterus. No injection or drainage. ENT: No nasal bleeding or discharge. Mucous membranes pink and moist. NECK: Trachea midline. No JVD. CARDIOVASCULAR: Regular rate and rhythm. RESPIRATORY: No accessory muscle use. Fine rails on bilateral lower lobes on auscultation. Breath sounds equal bilaterally. GASTROINTESTINAL: Abdomen obese, soft, non-tender, nondistended. Hepatic and splenic margins not palpable. MUSCULOSKELETAL: Extremities without clubbing, cyanosis. Bilateral lower extremity trace edema. No obvious deformities. NEUROLOGICAL: Awake and alert. No obvious cranial nerve deficits. Motor grossly within normal limits. Generalized weakness, moving all 4 extremities. Normal speech. PSYCHIATRIC: Appropriate mood and affect; insight and judgment unreliable, cooperative Results - Labs CBC & Chem 7: 08/18/18 07:50 08/19/18 07:17 Laboratory Results - last 24 hr 08/19/18 08/20/18 08/20/18 20:38 11:35 16:51 POC Glucose 125 H 122 H 112 H Assessment and Plan - Assessment (1) Gout Code(s): M10.9 - Gout, unspecified Status: Acute (2) Hypertension Code(s): I10 - Essential (primary) hypertension Status: Acute (3) Mood disorder due to known physiological condition with depressive features Code(s): F06.31 - Mood disorder due to known physiological condition with depressive features Status: Acute - Plan Patient is a 78-year-old male with past medical history of gout, HTN, DM 2 who initially came into the hospital for suicidal ideation. Per review of records patient plan to shoot himself with a gun. He is now admitted to inpatient psychiatry unit for further evaluation. Consulted for assistance with pain management. Gout Chronic pain -Does not appear to have a flareup. -Patient has possibly chronic pain on chronic pain management. [facility] Prescription Drug Monitoring Database has been queried and verified, noted that patient is on hydrocodone/acetaminophen 10/325 mg. -Will give colchicine 1.2 mg x1 dose now, 0.6 mg an hour after. 0.6 mg daily times 3-5 days. -Monitor renal indicis. -Initiate allopurinol after at 100mg daily pos on DC -check uric acid level Hx Heart Disease -no CP, c/o SOB on exertion -ECG Sinus rhythm -on O2 2L via NC -CXray: Mild mild basilar opacity, probably subsegmental atelectasis with trace pleural fluid -continue Aspirin -Add low-dose Lasix and potassium for 3 days, monitor BMP HTN, uncontrolled HLD BP Elevated -increase Norvasc 5 mg bid with hold parameters, clonidine PRN -Monitor BP trend DM 2 Diabetic neuropathy -Continue with Lantus, states he is not on infectible at home, may need to transition to PO -avoid metformin unless improved kidney function/ can use Januvia 50mg daily -Continue with insulin sliding scale -Monitor for hypoglycemia, blood glucose fair controlled -On gabapentin, received a dose this morning. Will monitor and hold for sedation Urinary tract infection -Patient is on Augmentin, doxycycline from the outpatient. We will continue for now. -Repeat UA if symptoms persist Acute kidney injury and possibly chronic kidney disease -creatinine improving 1.64 on admission, today 1.21. Unknown baseline. -s/p IV fluids, discontinued for fine rales, monitor for overload -Avoid nephrotoxins -Monitor renal indices -States taking Bumex BID, not listed on med rec, needs to reconcile med Episode of Lethargy - resolved -Possibly secondary to multiple factors, patient's increasing creatinine, or most likely effect from sedative medications -02 supplement as needed, keep O2 sat greater than 90% -Avoid over sedation with narcotics and sedatives Suicidal ideation, depression, mood disorder -Managed by psychiatry team DVT prop, heparin Code Status: full code Discussed Condition With: patient and nurse
[2018-08-21] MEDS: Insulin NovoLOG Aspart Correctional Sugar Inj SQ SCH ×6 (03:29→20:45)
[2018-08-21] MEDS: Furosemide 20 MG Tablet PO SCH (08:43)
[2018-08-21] MEDS: Heparin - SQ 10,000 UNITS/ML Vial SQ SCH ×2 (08:43→20:43)
[2018-08-21] MEDS: Sertraline 50 MG Tablet PO SCH (08:43)
[2018-08-21] MEDS: OMNICEF 300 MG PO SCH ×2 (08:44→20:44)
[2018-08-21] MEDS: Amoxicillin/Clavulanate 875/125 MG Tablet PO SCH ×2 (08:44→20:46)
[2018-08-21] MEDS: amLODIPine 5 MG Tablet PO SCH ×2 (08:44→20:43)
[2018-08-21] MEDS: Gabapentin 100 MG Capsule PO SCH ×3 (08:44→17:57)
[2018-08-21] MEDS: Insulin Glargine Inj 1,000 UNITS/10 ML Vial SQ SCH (08:45)
[2018-08-21 12:22] LABS: Bacteria,Urine Occasional /hpf; Bilirubin,Urine Negative (Negative); Clarity,Urine Hazy (Clear); Color,Urine Yellow (Yellw/Straw); Glucose,Urine (UA) Negative (Negative); Hyaline Casts,Urine 1 /lpf (0-3); Leukocyte Esterase,Urine Negative (Negative); Mucus,Urine Few /lpf (Occasional); Nitrite,Urine Negative (Negative); Specific Gravity,Urine 1.015 (1.002-1.035); Squamous Epithelial Cell,Urine 1 /hpf (0-5)
--- NOTE | 2018-08-21 18:30 | P.PNIM ---
Subjective Interval history: Follow-up visit gout flare-up, DM 2, HTN, heart disease, shortness of breath. Patient seen and examined, laying in bed, stated above feeling better. However feeling nauseated today. Patient stated was not able to eat his breakfast. Patient did not denies any abdominal pain, vomiting, diarrhea or constipation. Patient denies any fever or chills. Physical Exam Vital signs: Vital Signs 08/20/18 18:26 08/21/18 05:05 Temperature 98.1 F 98.3 F Pulse Rate 70 77 Respiratory Rate 17 18 Blood Pressure 142/65 H 161/77 H Pulse Oximetry 93 L 94 L Intake & Output 08/20/18 08/21/18 08/21/18 18:59 06:59 18:59 Intake Total 720 / 720 240 / 240 Output Total 2 / 2 100 / 100 Balance 718 / 718 -100 / -100 240 / 240 Intake: Oral 720 / 720 240 / 240 Output: Urine 2 / 2 100 / 100 Other: Date of Last Bowel Movement 08/20/18 08/20/18 08/20/18 Narrative: GENERAL: Well-developed, well-nourished, obese, male with no apparent distress SKIN: Warm and dry. Left elbow redness and edema, right elbow redness improved , right heel redness improved. Bilateral upper arm ecchymosis improved HEAD: Atraumatic. Normocephalic. EYES: Pupils equal and round. No scleral icterus. No injection or drainage. ENT: No nasal bleeding or discharge. Mucous membranes pink and moist. NECK: Trachea midline. No JVD. CARDIOVASCULAR: Regular rate and rhythm. RESPIRATORY: No accessory muscle use. Fine rails on bilateral lower lobes on auscultation. Breath sounds equal bilaterally. GASTROINTESTINAL: Abdomen obese, soft, non-tender, nondistended. Hepatic and splenic margins not palpable. MUSCULOSKELETAL: Extremities without clubbing, cyanosis. Bilateral lower extremity trace edema. No obvious deformities. NEUROLOGICAL: Awake and alert. No obvious cranial nerve deficits. Motor grossly within normal limits. Generalized weakness, moving all 4 extremities. Normal speech. PSYCHIATRIC: Appropriate mood and affect; insight and judgment unreliable, cooperative Results - Labs CBC & Chem 7: 08/18/18 07:50 08/19/18 07:17 Laboratory Results - last 24 hr 08/20/18 08/21/18 08/21/18 20:14 03:27 06:14 POC Glucose 130 H 135 H 121 H Uric Acid Urine Color Urine Clarity Urine pH Ur Specific [place] Urine Protein Urine Glucose (UA) Urine Ketones Urine Occult Blood Urine Nitrate Urine Bilirubin Urine Urobilinogen Ur Leukocyte Esterase Urine RBC Urine WBC Ur Squamous Epith Cells Urine Bacteria Hyaline Casts Urine Mucus Micro UA Comment Ur Microscopic Review Urine Culture Comments 08/21/18 08/21/18 08/21/18 07:16 11:00 17:40 POC Glucose 91 Uric Acid 7.4 H Urine Color Yellow Urine Clarity Hazy H Urine pH 5.0 Ur Specific [place] 1.015 Urine Protein 100 H Urine Glucose (UA) Negative Urine Ketones Trace H Urine Occult Blood Moderate H Urine Nitrate Negative Urine Bilirubin Negative Urine Urobilinogen Less than 2 Ur Leukocyte Esterase Negative Urine RBC 3 Urine WBC 2 Ur Squamous Epith Cells 1 Urine Bacteria Occasional H Hyaline Casts 1 Urine Mucus Few H Micro UA Comment Cath-culture ind Ur Microscopic Review Not Reportable Urine Culture Comments Cath-cult indicated Assessment and Plan - Assessment (1) Gout Code(s): M10.9 - Gout, unspecified Status: Acute (2) Hypertension Code(s): I10 - Essential (primary) hypertension Status: Acute (3) Mood disorder due to known physiological condition with depressive features Code(s): F06.31 - Mood disorder due to known physiological condition with depressive features Status: Acute - Plan Patient is a 78-year-old male with past medical history of gout, HTN, DM 2 who initially came into the hospital for suicidal ideation. Per review of records patient plan to shoot himself with a gun. He is now admitted to inpatient psychiatry unit for further evaluation. Consulted for assistance with pain management. Gout, acute on chronic Chronic pain -Does not appear to have a flareup. -Patient has possibly chronic pain on chronic pain management. [facility] Prescription Drug Monitoring Database has been queried and verified, noted that patient is on hydrocodone/acetaminophen 10/325 mg. -Will give colchicine 1.2 mg x1 dose now, 0.6 mg an hour after. 0.6 mg daily times 3-5 days. -Monitor renal indicis. -uric acid level slightly elevated, 7.4 -start allopurinol low dose Hx Heart Disease -no CP, c/o SOB on exertion -ECG Sinus rhythm -on O2 2L via NC -CXray: Mild mild basilar opacity, probably subsegmental atelectasis with trace pleural fluid -continue Aspirin -Add low-dose Lasix and potassium for 3 days, monitor BMP HTN, uncontrolled HLD BP Elevated -increase Norvasc 5 mg bid with hold parameters, clonidine PRN -Monitor BP trend -add prn clonidine for SBP>160, DBP>90 DM 2 Diabetic neuropathy -Continue with Lantus, states he is not on infectible at home, may need to transition to PO -avoid metformin unless improved kidney function/ can use Januvia 50mg daily -Continue with insulin sliding scale -Monitor for hypoglycemia, blood glucose fair controlled -On gabapentin, received a dose this morning. Will monitor and hold for sedation Urinary tract infection -Patient is on Augmentin, doxycycline from the outpatient. We will continue for now. -Repeat UA if symptoms persist Acute kidney injury and possibly chronic kidney disease -creatinine improving 1.64 on admission, today 1.21. Unknown baseline. -s/p IV fluids, discontinued for fine rales, monitor for overload -Avoid nephrotoxins -Monitor renal indices -States taking Bumex BID, not listed on med rec, needs to reconcile med Episode of Lethargy - resolved -Possibly secondary to multiple factors, patient's increasing creatinine, or most likely effect from sedative medications -02 supplement as needed, keep O2 sat greater than 90% -Avoid over sedation with narcotics and sedatives Suicidal ideation, depression, mood disorder -Managed by psychiatry team DVT prop, heparin Code Status: full code Discussed Condition With: patient and nurse
--- NOTE | 2018-08-21 22:29 | P.PNPSY ---
Subjective Chief Complaint: gout Remarks: Patient seen for follow-up, chart reviewed. Discussion with nursing staff reported that patient patient again did not sleep last evening but had been noted to be sleeping all day during the day yesterday. Patient states that his pain from his gout is improving. Patient was found sitting hospital bed noted to be irritable again but stating that he had not slept last evening as well. 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 Patient states that he has been retired for over a decade now. Patient reports that he is not depressed, denying any suicidal ideation stating the last time was the first thing which he arrived to the ED. He denies any previous suicide attempts. Patient states "if I could get rid of the gout I will be fine and I want to go home". Patient reported some nausea. Patient again stating that he was told by his outpatient psychiatrist to [place] act himself in order to seek medical attention at a hospital. Patient refused worked with physical therapy this morning but physical therapy stated in previous encounters patient is practically full assist and will require rehabilitation post discharge. Patient was reviewed with the importance of rehabilitation as assessed by physical therapy and agreed to go to a retirement facility. Review of Systems All other systems reviewed negative except as stated in HPI Mental Status Examination Appearance: Appropriate Consciousness: Alert Orientation: x4 Motor Activity: Normal gait Speech: Unremarkable Language: Adequate Fund of Knowledge: Adequate Attention and Concentration: Adequate Memory: Unremarkable Mood: Irritable (Lessening) Affect: Irritable (Slightly) Thought Process & Associations: Intact Thought Content: Appropriate Hallucination Type: None Delusion Type: None Suicidal Ideation: No Suicidal Plan: No Suicidal Intention: No Homicidal Ideation: No Homicidal Plan: No Homicidal Intention: No Insight: Poor Judgment: Poor Assessment and Plan - Assessment (1) Mood disorder due to known physiological condition with depressive features Code(s): F06.31 - Mood disorder due to known physiological condition with depressive features Status: Acute - Plan Plan: Patient continues some irritability but mostly focused on pain from his account which he states is improving. Patient denies any suicide ideation at this time. Continue current treatment. Continue to monitor mood and behavior. Patient will likely require referral to a retirement facility for rehab. Justification for Continued Inpatient Stay: At risk of further decompensation at lower level care.
[2018-08-22] MEDS: Insulin NovoLOG Aspart Correctional Sugar Inj SQ SCH ×5 (02:51→20:36)
[2018-08-22] MEDS ORDERED: Famotidine 20 MG Tablet PO SCH (09:00)
[2018-08-22] MEDS: Gabapentin 100 MG Capsule PO SCH ×3 (09:16→20:36)
[2018-08-22] MEDS: Allopurinol 100 MG Tablet PO SCH (09:16)
[2018-08-22] MEDS: Sertraline 50 MG Tablet PO SCH (09:16)
[2018-08-22] MEDS: amLODIPine 5 MG Tablet PO SCH ×2 (09:16→20:35)
[2018-08-22] MEDS: Amoxicillin/Clavulanate 875/125 MG Tablet PO SCH (09:17)
[2018-08-22] MEDS: Heparin - SQ 10,000 UNITS/ML Vial SQ SCH ×2 (09:17→20:36)
[2018-08-22] MEDS: Furosemide 20 MG Tablet PO SCH (09:17)
[2018-08-22] MEDS: OMNICEF 300 MG PO SCH ×2 (09:18→20:36)
[2018-08-22] MEDS: Insulin Glargine Inj 1,000 UNITS/10 ML Vial SQ SCH (09:18)
[2018-08-22 11:09] LABS: Baso % (Auto) 0.5 % (0.0-2.0); Eos # (Auto) 0.1 th/mm3 (0.0-0.4); Eos % (Auto) 0.8 % (0.0-4.0); Hematocrit 33.1 % (39.0-51.0); Lymph # (Auto) 0.8 th/mm3 (1.0-4.8); Lymph % (Auto) 8.9 % (9.0-44.0); Mean Corpuscular HGB Conc 33.2 % (32.0-36.0); Mean Corpuscular Hemoglobin 27.9 pg (27.0-34.0); Mean Platelet Volume 6.5 fL (7.0-11.0); Mono # (Auto) 0.5 th/mm3 (0.0-0.9); Mono % (Auto) 5.8 % (0.0-8.0); Neut # (Auto) 7.7 th/mm3 (1.8-7.7); Platelet Count 268 th/mm3 (150-450); Red Blood Count 3.94 mil/mm3 (4.50-5.90); Red Cell Distribution Width 15.1 % (11.6-17.2); White Blood Count 9.2 th/mm3 (4.0-11.0)
[2018-08-22 11:32] LABS: Calcium 8.8 mg/dL (8.5-10.1); Carbon Dioxide 19.8 meq/L (21.0-32.0); Potassium 3.9 meq/L (3.5-5.1)
--- NOTE | 2018-08-22 17:15 | P.PNIM ---
Subjective Interval history: Follow-up visit gout flare-up, DM 2, HTN, heart disease, shortness of breath. Patient seen and examined, sitting at the bedside, stated unable to eat breakfast, complains of nausea, and no appetite. Patient denies any pain, chest pain or shortness of breath. Other than the left elbow which is getting better, stated right elbow is a lot better, with the pain gone. Patient stated he was taking Bumex before at home 2 times a day, and it was prescribed by her student teaching coordinator Dr. Slaughter. Patient stated that the Lasix does not work for him. Patient stated he is not being as much hair as he does at home the Bumex. Discussed with the nurse to verify medication from his pharmacy for the dose. Physical Exam Vital signs: Vital Signs 08/21/18 18:43 08/22/18 05:49 Temperature 97.3 F L 99.2 F Pulse Rate 107 H 84 Respiratory Rate 18 16 Blood Pressure 169/74 H 150/68 H Pulse Oximetry 94 L 93 L Intake & Output 08/21/18 08/22/18 08/22/18 18:59 06:59 18:59 Intake Total 240 / 240 395 / 395 240 / 240 Output Total 300 / 300 Balance 240 / 240 395 / 395 -60 / -60 Intake: Oral 240 / 240 395 / 395 240 / 240 Output: Urine 300 / 300 Other: # Voids 1 1 Date of Last Bowel Movement 08/20/18 08/20/18 Narrative: GENERAL: Well-developed, well-nourished, obese, male with no apparent distress SKIN: Warm and dry. Left elbowslight redness and trace edema, right elbow redness improved, right heel redness improved. Bilateral upper arm ecchymosis improved HEAD: Atraumatic. Normocephalic. EYES: Pupils equal and round. No scleral icterus. No injection or drainage. ENT: No nasal bleeding or discharge. Mucous membranes pink and moist. NECK: Trachea midline. No JVD. CARDIOVASCULAR: Regular rate and rhythm. RESPIRATORY: No accessory muscle use. Fine rails on bilateral lower lobes on auscultation. Breath sounds equal bilaterally. GASTROINTESTINAL: Abdomen obese, soft, non-tender, nondistended. Hepatic and splenic margins not palpable. MUSCULOSKELETAL: Extremities without clubbing, cyanosis. Bilateral lower extremity trace edema. No obvious deformities. NEUROLOGICAL: Awake and alert. No obvious cranial nerve deficits. Motor grossly within normal limits. Generalized weakness, moving all 4 extremities. Normal speech. PSYCHIATRIC: Appropriate mood and affect; insight and judgment unreliable, cooperative Results - Labs CBC & Chem 7: 08/22/18 09:58 08/22/18 09:58 Laboratory Results - last 24 hr 08/21/18 08/22/18 08/22/18 17:40 06:26 09:58 WBC 9.2 RBC 3.94 L Hgb 11.0 L Hct 33.1 L MCV 84.0 MCH 27.9 MCHC 33.2 RDW 15.1 Plt Count 268 D MPV 6.5 L Neut % (Auto) 84.0 H Lymph % (Auto) 8.9 L Kleberg % (Auto) 5.8 Eos % (Auto) 0.8 Baso % (Auto) 0.5 Neut # (Auto) 7.7 Lymph # (Auto) 0.8 L Kleberg # (Auto) 0.5 Eos # (Auto) 0.1 Baso # (Auto) 0.0 WBC Differential . Differential Comment Auto diff final Sodium Potassium Chloride Carbon Dioxide Anion Gap BUN Creatinine Estimated GFR POC Glucose 91 81 Random Glucose Calcium 08/22/18 09:58 WBC RBC Hgb Hct MCV MCH MCHC RDW Plt Count MPV Neut % (Auto) Lymph % (Auto) Kleberg % (Auto) Eos % (Auto) Baso % (Auto) Neut # (Auto) Lymph # (Auto) Kleberg # (Auto) Eos # (Auto) Baso # (Auto) WBC Differential Differential Comment Sodium 142 Potassium 3.9 Chloride 110 H Carbon Dioxide 19.8 L Anion Gap 12 BUN 18 Creatinine 1.07 Estimated GFR 67 L POC Glucose Random Glucose 73 L Calcium 8.8 Microbiology 08/21/18 11:00 Catheterized Urine Urine Culture - Preliminary No growth in 24 hours Assessment and Plan - Assessment (1) Gout Code(s): M10.9 - Gout, unspecified Status: Acute (2) Hypertension Code(s): I10 - Essential (primary) hypertension Status: Acute (3) Mood disorder due to known physiological condition with depressive features Code(s): F06.31 - Mood disorder due to known physiological condition with depressive features Status: Acute - Plan Patient is a 78-year-old male with past medical history of gout, HTN, DM 2 who initially came into the hospital for suicidal ideation. Per review of records patient plan to shoot himself with a gun. He is now admitted to inpatient psychiatry unit for further evaluation. Consulted for assistance with pain management. Gout, acute on chronic Chronic pain -Does not appear to have a flareup. -Patient has possibly chronic pain on chronic pain management. [facility] Prescription Drug Monitoring Database has been queried and verified, noted that patient is on hydrocodone/acetaminophen 10/325 mg. -Will give colchicine 1.2 mg x1 dose now, 0.6 mg an hour after. 0.6 mg daily times 3-5 days. -Monitor renal indicis. -uric acid level slightly elevated, 7.4, goal is to keep the uric acid level less than 6 -start allopurinol low dose -Bilateral elbow redness and edema improving right elbow almost healed left elbow with slight edema -Patient not in need of any pain medication at this time, nurses denies any patient's complaint of pain Hx Heart Disease/trace edema -no CP, c/o SOB on exertion -ECG Sinus rhythm -on O2 2L via NC -CXray: Mild mild basilar opacity, probably subsegmental atelectasis with trace pleural fluid -continue Aspirin -s/p Lasix and potassium for 3 days, monitor BMP -Restart on low dose Bumex adjust dose accordingly HTN, uncontrolled HLD BP Elevated -increase Norvasc 5 mg bid with hold parameters, clonidine PRN -Monitor BP trend -add prn clonidine for SBP>160, DBP>90 -Restarted on low-dose Bumex DM 2 Diabetic neuropathy -start Januvia 50mg daily, d/c lantus -Continue with insulin sliding scale -Monitor for hypoglycemia, blood glucose fair controlled -Decrease gabapentin dose, monitor and hold for sedation Urinary tract infection -Patient is on Augmentin, doxycycline from the outpatient. We will continue for now. -Repeat UA if symptoms persist Acute kidney injury on chronic kidney disease -creatinine improving 1.64 on admission, today 1.21. Unknown baseline. -s/p IV fluids, discontinued for fine rales, monitor for overload -Avoid nephrotoxins -Monitor renal indices -Restart on low dose Bumex, monitor BMP Follow-up with nephrology Dr. Slaughter upon discharge as an outpatient Episode of Lethargy - resolved -Possibly secondary to multiple factors, patient's increasing creatinine, or most likely effect from sedative medications -02 supplement as needed, keep O2 sat greater than 90% -Avoid over sedation with narcotics and sedatives Suicidal ideation, depression, mood disorder -Managed by psychiatry team DVT prop, heparin Code Status: Full code Discussed Condition With: Patient and nurse Discharge Planning: Follow-up with PCP 1 week upon discharge Follow-up with student teaching coordinator/ in 2-4 weeks upon discharge
--- NOTE | 2018-08-22 19:01 | P.PNPSY ---
Subjective Chief Complaint: gout Remarks: Patient seen for follow-up, chart reviewed. Discussion with nursing staff reported that patient decrease in loose stools, continues to have poor p.o. intake, but was able to sit up in chair today with assistance from physical therapy. Patient was found lying hospital bed noted B, cooperative. Patient states that his mood is "better" noted to have better affect, less irritable today and smiling at times. Patient denies any suicide ideations at this time. Patient state he is hopeful and agrees to go to correction facility prior to transitioning home. Patient states that his gout is "easing up" and that he is "on the mend". Review of Systems All other systems reviewed negative except as stated in HPI Mental Status Examination Appearance: Appropriate Consciousness: Alert Orientation: x4 Motor Activity: Normal gait Speech: Unremarkable Language: Adequate Fund of Knowledge: Adequate Attention and Concentration: Adequate Memory: Unremarkable Mood: Appropriate Affect: Appropriate Thought Process & Associations: Intact Thought Content: Appropriate Hallucination Type: None Delusion Type: None Suicidal Ideation: No Suicidal Plan: No Suicidal Intention: No Homicidal Ideation: No Homicidal Plan: No Homicidal Intention: No Insight: Fair Judgment: Impulsive Assessment and Plan - Assessment (1) Mood disorder due to known physiological condition with depressive features Code(s): F06.31 - Mood disorder due to known physiological condition with depressive features Status: Acute - Plan Plan: Patient noted with improvement in mood, less irritable, reporting physically improving, denying any suicide ideations. Patient agrees to referral to a correction facility upon discharge. Continue current treatment. Continue to monitor mood and behavior. Discharge planning in progress. Justification for Continued Inpatient Stay: At risk of further decompensation at lower level care.
[2018-08-22] MEDS: Famotidine 20 MG Tablet PO SCH (20:35)
--- NOTE | 2018-08-23 08:04 | P.PNIM ---
Subjective Interval history: Follow-up visit gout flare-up, DM 2, HTN, heart disease, shortness of breath. Patient stated feeling better, denies any headache, pain, chest pain or SOB. Denies any fever or chills, denies any N/V/Diarrhea. Patient stated he does not take any insulin at Home, but taking pills, unable to identify. Recommended patient to follow up with his PCP, stated he is in [place], and Nephrology-Dr Slaughter. he stated it is due to see him. Physical Exam Vital signs: Vital Signs 08/23/18 04:31 Temperature 97.6 F Pulse Rate 84 Respiratory Rate 16 Blood Pressure 160/72 H Pulse Oximetry 94 L Intake & Output 08/22/18 08/23/18 08/23/18 18:59 06:59 18:59 Intake Total 240 / 240 Output Total 300 / 300 Balance -60 / -60 Intake: Oral 240 / 240 Output: Urine 300 / 300 Other: # Voids 1 Date of Last Bowel Movement 08/20/18 Narrative: GENERAL: Well-developed, well-nourished, obese, male with no apparent distress SKIN: Warm and dry. Left elbow healed and trace edema, right elbow trace redness, right heel redness improved. Bilateral upper arm ecchymosis improved HEAD: Atraumatic. Normocephalic. EYES: Pupils equal and round. No scleral icterus. No injection or drainage. ENT: No nasal bleeding or discharge. Mucous membranes pink and moist. NECK: Trachea midline. No JVD. CARDIOVASCULAR: Regular rate and rhythm. RESPIRATORY: No accessory muscle use. Fine rails on bilateral lower lobes on auscultation. Breath sounds equal bilaterally. GASTROINTESTINAL: Abdomen obese, soft, non-tender, nondistended. Hepatic and splenic margins not palpable. MUSCULOSKELETAL: Extremities without clubbing, cyanosis. Bilateral lower extremity trace edema. No obvious deformities. NEUROLOGICAL: Awake and alert. No obvious cranial nerve deficits. Motor grossly within normal limits. Generalized weakness, moving all 4 extremities. Normal speech. PSYCHIATRIC: Appropriate mood and affect; insight and judgment unreliable, cooperative Results - Labs CBC & Chem 7: 08/22/18 09:58 08/22/18 09:58 Laboratory Results - last 24 hr 08/22/18 08/22/18 08/22/18 09:58 09:58 18:57 WBC 9.2 RBC 3.94 L Hgb 11.0 L Hct 33.1 L MCV 84.0 MCH 27.9 MCHC 33.2 RDW 15.1 Plt Count 268 D MPV 6.5 L Neut % (Auto) 84.0 H Lymph % (Auto) 8.9 L Sharp % (Auto) 5.8 Eos % (Auto) 0.8 Baso % (Auto) 0.5 Neut # (Auto) 7.7 Lymph # (Auto) 0.8 L Sharp # (Auto) 0.5 Eos # (Auto) 0.1 Baso # (Auto) 0.0 WBC Differential . Differential Comment Auto diff final Sodium 142 Potassium 3.9 Chloride 110 H Carbon Dioxide 19.8 L Anion Gap 12 BUN 18 Creatinine 1.07 Estimated GFR 67 L POC Glucose 88 Random Glucose 73 L Calcium 8.8 08/23/18 07:31 WBC RBC Hgb Hct MCV MCH MCHC RDW Plt Count MPV Neut % (Auto) Lymph % (Auto) Sharp % (Auto) Eos % (Auto) Baso % (Auto) Neut # (Auto) Lymph # (Auto) Sharp # (Auto) Eos # (Auto) Baso # (Auto) WBC Differential Differential Comment Sodium Potassium Chloride Carbon Dioxide Anion Gap BUN Creatinine Estimated GFR POC Glucose 79 Random Glucose Calcium Microbiology 08/21/18 11:00 Catheterized Urine Urine Culture - Preliminary No growth in 24 hours Assessment and Plan - Assessment (1) Gout Code(s): M10.9 - Gout, unspecified Status: Acute (2) Hypertension Code(s): I10 - Essential (primary) hypertension Status: Acute (3) Mood disorder due to known physiological condition with depressive features Code(s): F06.31 - Mood disorder due to known physiological condition with depressive features Status: Acute - Plan Patient is a 78-year-old male with past medical history of gout, HTN, DM 2 who initially came into the hospital for suicidal ideation. Per review of records patient plan to shoot himself with a gun. He is now admitted to inpatient psychiatry unit for further evaluation. Consulted for assistance with pain management. Gout, acute on chronic Chronic pain -Does not appear to have a flareup. -Patient has possibly chronic pain on chronic pain management. [employer] Prescription Drug Monitoring Database has been queried and verified, noted that patient is on hydrocodone/acetaminophen 10/325 mg. -Will give colchicine 1.2 mg x1 dose now, 0.6 mg an hour after. 0.6 mg daily times 3-5 days. -Monitor renal indicis. -uric acid level slightly elevated, 7.4, goal is to keep the uric acid level less than 6 -start allopurinol low dose -Bilateral elbow redness and edema improving right elbow almost healed left elbow with slight edema -Patient not in need of any pain medication at this time, nurses denies any patient's complaint of pain Hx Heart Disease/trace edema -no CP, c/o SOB on exertion -ECG Sinus rhythm -on O2 2L via NC -CXray: Mild mild basilar opacity, probably subsegmental atelectasis with trace pleural fluid -continue Aspirin -s/p Lasix and potassium for 3 days, monitor BMP -Restart on low dose Bumex adjust dose accordingly HTN, uncontrolled HLD BP Elevated -increase Norvasc 5 mg bid with hold parameters, clonidine PRN -Monitor BP trend -add prn clonidine for SBP>160, DBP>90 -Restarted on low-dose Bumex, monitor BMP -Follow up with PCP upon Discharge DM 2 Diabetic neuropathy -start Januvia 50mg daily, d/c lantus, patient unable to comply with insulin injection upon discharge -Continue with insulin sliding scale -Monitor for hypoglycemia, blood glucose fair controlled -Decrease gabapentin dose, monitor and hold for sedation -PCP tp follow Urinary tract infection -Patient is on Augmentin, doxycycline from the outpatient. We will continue for now. -Repeat UA if symptoms persist -no signs and symptoms Acute kidney injury on chronic kidney disease -creatinine improving 1.64 on admission, today 1.21. Unknown baseline. -s/p IV fluids, discontinued for fine rales, monitor for overload -Avoid nephrotoxins -Monitor renal indices -Restart on low dose Bumex, monitor BMP Follow-up with nephrology Dr. Slaguhter upon discharge as an outpatient Episode of Lethargy - resolved -Possibly secondary to multiple factors, patient's increasing creatinine, or most likely effect from sedative medications -02 supplement as needed, keep O2 sat greater than 90% -Avoid over sedation with narcotics and sedatives Suicidal ideation, depression, mood disorder -Managed by psychiatry team DVT prop, heparin Patient is Medically clear discharge. Follow up with PCP and Nephrology/Dr Slaughter as an outpatient. Code Status: full code Discussed Condition With: patient, nurse and Dr Jacinto Discharge Planning: Follow-up with PCP 1 week upon discharge Follow-up with window shade cutter and mounter/ in 2-4 weeks upon discharge per discussion with Dr Jacinto, patient will be arranged for discharged at a Nursing Facility.
[2018-08-23] MEDS: Heparin - SQ 10,000 UNITS/ML Vial SQ SCH ×2 (08:16→20:40)
[2018-08-23] MEDS: Insulin NovoLOG Aspart Correctional Sugar Inj SQ SCH ×4 (08:27→20:39)
[2018-08-23] MEDS: Famotidine 20 MG Tablet PO SCH ×2 (08:27→21:05)
[2018-08-23] MEDS: Sertraline 50 MG Tablet PO SCH (08:27)
[2018-08-23] MEDS: Allopurinol 100 MG Tablet PO SCH (08:28)
[2018-08-23] MEDS: amLODIPine 5 MG Tablet PO SCH ×2 (08:28→21:05)
[2018-08-23] MEDS: Gabapentin 100 MG Capsule PO SCH ×2 (08:28→21:05)
[2018-08-23] MEDS: OMNICEF 300 MG PO SCH ×2 (08:28→20:43)
[2018-08-23] MEDS: Insulin Glargine Inj 1,000 UNITS/10 ML Vial SQ SCH (09:18)
--- NOTE | 2018-08-23 14:36 | P.PNPSY ---
Subjective Chief Complaint: gout Remarks: Patient seen for follow-up, chart reviewed. Discussion with nursing staff reported that patient poor p.o. intake but trying to eat more now. Patient was found lying hospital bed noted to be in fair spirits not noted to be irritable and noted to have more reactive affect smiling at times. Patient states that he is feeling better and that the pain from the gout is easing up. He is aware that he does have significant weakness and recommendation for patient to go to a jail facility was reviewed which she agreed. Patient denies any suicide ideations at this time. Review of Systems All other systems reviewed negative except as stated in HPI Mental Status Examination Appearance: Appropriate Consciousness: Alert Orientation: x4 Motor Activity: Normal gait Speech: Unremarkable Language: Adequate Fund of Knowledge: Adequate Attention and Concentration: Adequate Memory: Unremarkable Mood: Appropriate Affect: Appropriate Thought Process & Associations: Intact Thought Content: Appropriate Hallucination Type: None Delusion Type: None Suicidal Ideation: No Suicidal Plan: No Suicidal Intention: No Homicidal Ideation: No Homicidal Plan: No Homicidal Intention: No Insight: Fair Judgment: Impulsive Assessment and Plan - Assessment (1) Mood disorder due to known physiological condition with depressive features Code(s): F06.31 - Mood disorder due to known physiological condition with depressive features Status: Acute - Plan Plan: Patient noted to have continued improvement in mood as his medical conditions also continue to improve. Patient will require referral to rehab program as he is noted with significant weakness and deconditioning. Continue current treatment. Continue to monitor mood and behavior. Discharge planning in progress. Justification for Continued Inpatient Stay: At risk of further decompensation at lower level care.
[2018-08-23] MEDS: glipiZIDE 5 MG Tablet PO SCH (18:05)
[2018-08-24] MEDS: Insulin NovoLOG Aspart Correctional Sugar Inj SQ SCH ×6 (01:41→21:52)
[2018-08-24 08:46] LABS: Calcium 8.4 mg/dL (8.5-10.1); Carbon Dioxide 21.8 meq/L (21.0-32.0); Potassium 3.6 meq/L (3.5-5.1)
[2018-08-24] MEDS: amLODIPine 5 MG Tablet PO SCH ×2 (09:38→21:52)
[2018-08-24] MEDS: Famotidine 20 MG Tablet PO SCH ×2 (09:38→21:53)
[2018-08-24] MEDS: glipiZIDE 5 MG Tablet PO SCH (09:38)
[2018-08-24] MEDS: Sertraline 50 MG Tablet PO SCH (09:39)
[2018-08-24] MEDS: Gabapentin 100 MG Capsule PO SCH ×2 (09:40→21:52)
[2018-08-24] MEDS: Allopurinol 100 MG Tablet PO SCH (09:40)
[2018-08-24] MEDS: Heparin - SQ 10,000 UNITS/ML Vial SQ SCH ×2 (09:43→21:52)
[2018-08-24] MEDS: OMNICEF 300 MG PO SCH ×2 (14:20→21:53)
--- NOTE | 2018-08-24 14:24 | P.PNPSY ---
Subjective Chief Complaint: gout Remarks: The patient was seen today for psychiatric reevaluation. The patient is found in his bed, quite distant, superficial, but able to tell me that he feels much better today. Reports of her mood, good sleep, improve appetite. I encouraged the patient to get out of his bed and try to go to the [place] and take fresh air. He has been reported as isolated, but compliant medications, no significant side effects. No agitation, no aggressive behavior reported per Mental Status Examination Appearance: Appropriate Consciousness: Alert Orientation: x4 Motor Activity: Normal gait Speech: Unremarkable Language: Adequate Fund of Knowledge: Adequate Attention and Concentration: Adequate Memory: Unremarkable Mood: Appropriate Affect: Appropriate Thought Process & Associations: Intact Thought Content: Appropriate Hallucination Type: None Delusion Type: None Suicidal Ideation: No Suicidal Plan: No Suicidal Intention: No Homicidal Ideation: No Homicidal Plan: No Homicidal Intention: No Insight: Fair Judgment: Impulsive Assessment and Plan - Assessment (1) Mood disorder due to known physiological condition with depressive features Code(s): F06.31 - Mood disorder due to known physiological condition with depressive features Status: Acute - Plan Plan: Continue current psychotropic regimen. Justification for Continued Inpatient Stay: Continue psychiatric hospitalization for stabilization.
[2018-08-25] MEDS: Insulin NovoLOG Aspart Correctional Sugar Inj SQ SCH ×5 (08:14→20:57)
[2018-08-25] MEDS: glipiZIDE 5 MG Tablet PO SCH (08:16)
[2018-08-25] MEDS: Sertraline 50 MG Tablet PO SCH (08:17)
[2018-08-25] MEDS: amLODIPine 5 MG Tablet PO SCH ×2 (08:18→20:58)
[2018-08-25] MEDS: Allopurinol 100 MG Tablet PO SCH (08:18)
[2018-08-25] MEDS: Gabapentin 100 MG Capsule PO SCH ×2 (08:18→20:58)
[2018-08-25] MEDS: Heparin - SQ 10,000 UNITS/ML Vial SQ SCH ×2 (08:18→20:58)
[2018-08-25] MEDS: Famotidine 20 MG Tablet PO SCH ×2 (08:19→20:58)
[2018-08-25] MEDS: OMNICEF 300 MG PO SCH ×3 (08:19→20:57)
--- NOTE | 2018-08-25 13:31 | P.PNPSY ---
Subjective Chief Complaint: gout Remarks: Pt seen and discussed with staff. Chart reviewed. He continues to experience intermittent suicidal ideation and told RN that if he were to do it,he would overdose. Staff report that he has been dependent and attention seeking on unit. He is compliant with medications Mental Status Examination Appearance: Appropriate Consciousness: Alert Orientation: x4 Motor Activity: Normal gait Speech: Unremarkable Language: Adequate Fund of Knowledge: Adequate Attention and Concentration: Adequate Memory: Unremarkable Mood: Irritable Affect: Appropriate, Irritable Thought Process & Associations: Intact Thought Content: Appropriate Hallucination Type: None Delusion Type: None Suicidal Ideation: No Suicidal Plan: No Suicidal Intention: No Homicidal Ideation: No Homicidal Plan: No Homicidal Intention: No Insight: Fair Judgment: Impulsive Assessment and Plan - Assessment (1) Mood disorder due to known physiological condition with depressive features Code(s): F06.31 - Mood disorder due to known physiological condition with depressive features Status: Acute - Plan Plan: Continue current treatment plan. Justification for Continued Inpatient Stay: risk of decompensation
[2018-08-25] MEDS: Melatonin 5 MG Tablet PO PRN (20:59)
[2018-08-26] MEDS: Insulin NovoLOG Aspart Correctional Sugar Inj SQ SCH ×5 (05:46→21:00)
[2018-08-26] MEDS: Sertraline 50 MG Tablet PO SCH (09:29)
[2018-08-26] MEDS: amLODIPine 5 MG Tablet PO SCH ×2 (09:29→21:00)
[2018-08-26] MEDS: Heparin - SQ 10,000 UNITS/ML Vial SQ SCH ×2 (09:29→21:00)
[2018-08-26] MEDS: Allopurinol 100 MG Tablet PO SCH (09:29)
[2018-08-26] MEDS: glipiZIDE 5 MG Tablet PO SCH (09:30)
[2018-08-26] MEDS: OMNICEF 300 MG PO SCH ×2 (09:33→21:00)
[2018-08-26] MEDS: Gabapentin 100 MG Capsule PO SCH ×2 (09:34→21:00)
[2018-08-26] MEDS: Famotidine 20 MG Tablet PO SCH ×2 (09:34→21:00)
--- NOTE | 2018-08-26 16:57 | P.PNPSY ---
Subjective Chief Complaint: gout Remarks: Patient seen for follow up; chart reviewed. Discussion with nursing reported that patient upset due to sleeping during the day and having difficulty at night but denies any SI. Patient noted to ambulate with assistance to shower and later found lying on hospital bed, calm and cooperative. He states feeling better, having less pain but denying any suicide ideations. Patient states that his pain is going away but that this episode of gout has been the worst if he has ever experienced but is improving. Review of Systems All other systems reviewed negative except as stated in HPI Mental Status Examination Appearance: Appropriate Consciousness: Alert Orientation: x4 Motor Activity: Normal gait Speech: Unremarkable Language: Adequate Fund of Knowledge: Adequate Attention and Concentration: Adequate Memory: Unremarkable Mood: Irritable Affect: Appropriate Thought Process & Associations: Intact Thought Content: Appropriate Hallucination Type: None Delusion Type: None Suicidal Ideation: No Suicidal Plan: No Suicidal Intention: No Homicidal Ideation: No Homicidal Plan: No Homicidal Intention: No Insight: Fair Judgment: Impulsive Assessment and Plan - Assessment (1) Mood disorder due to known physiological condition with depressive features Code(s): F06.31 - Mood disorder due to known physiological condition with depressive features Status: Acute - Plan Plan: Patient this time reports mood improving but continues to feel down due to current pain from gout flare. Pain is subsiding although continues to be present but is improving which is also improving patient's mood. We will continue current treatment. We will continue to search for rehabilitation program for patient to transition to as patient requires rehab for safe discharge back to his residence. Discharge planning in progress. Justification for Continued Inpatient Stay: At risk of further decompensation at lower level care.
[2018-08-26] MEDS: Melatonin 5 MG Tablet PO PRN (21:00)
[2018-08-27] MEDS: Insulin NovoLOG Aspart Correctional Sugar Inj SQ SCH ×5 (03:00→20:47)
[2018-08-27] MEDS: Allopurinol 100 MG Tablet PO SCH (09:30)
[2018-08-27] MEDS: Gabapentin 100 MG Capsule PO SCH ×2 (09:30→20:45)
[2018-08-27] MEDS: Famotidine 20 MG Tablet PO SCH ×2 (09:30→20:45)
[2018-08-27] MEDS: glipiZIDE 5 MG Tablet PO SCH (09:30)
[2018-08-27] MEDS: Heparin - SQ 10,000 UNITS/ML Vial SQ SCH ×2 (09:30→20:44)
[2018-08-27] MEDS: Sertraline 50 MG Tablet PO SCH (09:30)
[2018-08-27] MEDS: amLODIPine 5 MG Tablet PO SCH ×2 (09:30→20:45)
[2018-08-27] MEDS: OMNICEF 300 MG PO SCH ×2 (11:42→20:45)
--- NOTE | 2018-08-27 15:15 | P.TTN ---
- Patient Problems Problems: 1. Discharge planning 2. Medication compliance 3. Knowledge deficit 4. Lack of coping skills - Progress Toward Goals Provider Present: Dr. Braden Jacinto Provider Input: 08/26/2018; patient's medications are being tirated to address patient's mood Nurse(s) Present: RN Nurse Input: 08/26/2018; patient is eating and taking medication, he require coaching with mood Psychiatric Counselors Present: Arianna Villalobos [facility] Psychiatric Therapist Input: 08/26/2018; counselor will work with [place] environmental restoration planner to help with appropriate short term Rehab placement prior to patient returning home Group Spec/RT/OT/WRIGHT Present: Dex Austin, ARABELLA Group Spec/RT/OT/WRIGHT Input: 08/26/2018; patient has been resistant with participating with actvities and groups - Documentation Teaching Recipient: Patient
--- NOTE | 2018-08-27 16:26 | P.PNPSY ---
Subjective Chief Complaint: gout Remarks: Patient seen for follow-up, chart reviewed. Discussion with nursing staff reported that patient making effort to ambulate more, denies any shortness of breath. Patient was found lying on hospital bed, calm and cooperative. Patient rerpots feeling "better" and feeling that his flare up of gout is subsiding. He states that his nutritional intake is slowly improving as well. He mentions that his mood in general is "pretty good", denies any perceptual disturbances, SI or HI. Review of Systems All other systems reviewed negative except as stated in HPI Mental Status Examination Appearance: Appropriate Consciousness: Alert Orientation: x4 Motor Activity: Normal gait Speech: Unremarkable Language: Adequate Fund of Knowledge: Adequate Attention and Concentration: Adequate Memory: Unremarkable Mood: Appropriate Affect: Appropriate Thought Process & Associations: Intact Thought Content: Appropriate Hallucination Type: None Delusion Type: None Suicidal Ideation: No Suicidal Plan: No Suicidal Intention: No Homicidal Ideation: No Homicidal Plan: No Homicidal Intention: No Insight: Fair Judgment: Impulsive Assessment and Plan - Assessment (1) Mood disorder due to known physiological condition with depressive features Code(s): F06.31 - Mood disorder due to known physiological condition with depressive features Status: Acute - Plan Plan: Patient continues with improvement in mood denying any suicidal ideation denies any perceptional services or delusions. Continues to progress and improvement in relation to pain from his gout. Continues to require physical therapy as well as rehabilitation prior to transitioning home. We will continue current treatment. Continue to monitor mood and behavior. Treatment team continues to search for [facility] facility for discharge patient to continue treatment. Discharge planning a progress. Justification for Continued Inpatient Stay: At risk of further decompensation at lower level care.
[2018-08-27] MEDS: Melatonin 5 MG Tablet PO PRN (20:47)
[2018-08-28] MEDS: Insulin NovoLOG Aspart Correctional Sugar Inj SQ SCH ×4 (03:00→20:48)
[2018-08-28] MEDS: glipiZIDE 5 MG Tablet PO SCH (08:58)
[2018-08-28] MEDS: Gabapentin 100 MG Capsule PO SCH ×2 (08:59→20:52)
[2018-08-28] MEDS: Allopurinol 100 MG Tablet PO SCH (08:59)
[2018-08-28] MEDS: Sertraline 50 MG Tablet PO SCH (09:01)
[2018-08-28] MEDS: amLODIPine 5 MG Tablet PO SCH ×2 (09:01→20:52)
[2018-08-28] MEDS: OMNICEF 300 MG PO SCH (09:02)
[2018-08-28] MEDS: Heparin - SQ 10,000 UNITS/ML Vial SQ SCH ×2 (09:03→20:51)
[2018-08-28] MEDS: Famotidine 20 MG Tablet PO SCH ×2 (09:05→20:52)
--- NOTE | 2018-08-28 14:42 | P.TTN ---
- Patient Problems Problems: 1. Discharge planning 2. Medication compliance 3. Knowledge deficit 4. Lack of coping skills - Progress Toward Goals Provider Present: Dr. Braden Jacinto Provider Input: 08/28/2018: Per doctor, patient will require Rehab prior to returning home;. 08/26/2018; patient's medications are being tirated to address patient's mood Nurse(s) Present: RN Nurse Input: 08/28/2018: Patient is eating and taking his meds, depressed affect and refuse at times to engage. 08/26/2018; patient is eating and taking medication, he require coaching with mood Psychiatric Counselors Present: Arianna Villalobos [facility] Psychiatric Therapist Input: 08/28/2018: counselor will explore outside of [facility] for short term placement. 08/26/2018; counselor will work with [place] cyber ops planner to help with appropriate short term Rehab placement prior to patient returning home Group Spec/RT/OT/WRIGHT Present: KYLE Paulson, Dex Austin, OT Group Spec/RT/OT/WRIGHT Input: 08/28/2018: patient refuses to participate with groups or activities. 08/26/2018; patient has been resistant with participating with actvities and groups - Documentation Teaching Recipient: Patient
[2018-08-28] MEDS: Melatonin 5 MG Tablet PO PRN (20:51)
--- NOTE | 2018-08-28 21:55 | P.PNPSY ---
Subjective Chief Complaint: gout Remarks: Patient seen for follow-up, chart reviewed. Discussion with nursing staff reported that patient cooperative but refused physical therapy today. Patient was found lying hospital bed noted calm, cooperative. Patient states that he is feeling "better" stating that he continues to have difficulty sleeping at night but that this is been for years. He states that his pain is going away but continues to want help with rehabilitation. Patient denies any suicide ideation at this time. Review of Systems All other systems reviewed negative except as stated in HPI Mental Status Examination Appearance: Appropriate Consciousness: Alert Orientation: x4 Motor Activity: Normal gait Speech: Unremarkable Language: Adequate Fund of Knowledge: Adequate Attention and Concentration: Adequate Memory: Unremarkable Mood: Appropriate Affect: Appropriate Thought Process & Associations: Intact Thought Content: Appropriate Hallucination Type: None Delusion Type: None Suicidal Ideation: No Suicidal Plan: No Suicidal Intention: No Homicidal Ideation: No Homicidal Plan: No Homicidal Intention: No Insight: Fair Judgment: Impulsive Assessment and Plan - Assessment (1) Mood disorder due to known physiological condition with depressive features Code(s): F06.31 - Mood disorder due to known physiological condition with depressive features Status: Acute - Plan Plan: Patient continues with improvement in mood denying any suicide ideations. Patient states that he is physically feeling better due to reduced pain but is worried about decreasing urine output. Patient refused physical therapy was encouraged to continue to comply for rehabilitation. Continue current treatment. Continue to monitor mood and behavior. Discharge planning in progress. Justification for Continued Inpatient Stay: At risk of further decompensation at lower level care.
[2018-08-29] MEDS: Insulin NovoLOG Aspart Correctional Sugar Inj SQ SCH ×6 (02:01→21:23)
[2018-08-29] MEDS: OMNICEF 300 MG PO SCH ×3 (02:02→21:24)
[2018-08-29] MEDS: glipiZIDE 5 MG Tablet PO SCH (06:37)
[2018-08-29] MEDS: Heparin - SQ 10,000 UNITS/ML Vial SQ SCH ×2 (09:46→21:24)
[2018-08-29] MEDS: Gabapentin 100 MG Capsule PO SCH ×2 (09:47→21:23)
[2018-08-29] MEDS: Allopurinol 100 MG Tablet PO SCH (09:47)
[2018-08-29] MEDS: Sertraline 50 MG Tablet PO SCH (09:49)
[2018-08-29] MEDS: amLODIPine 5 MG Tablet PO SCH ×2 (09:49→21:22)
[2018-08-29] MEDS: Famotidine 20 MG Tablet PO SCH ×2 (09:49→21:21)
--- NOTE | 2018-08-29 17:08 | P.PNIM ---
Subjective Interval history: Nursing reports that the patient is complaining of decreased urinary output. Nursing reports that they did not have Bumex and start ready and so he missed his morning dose this morning, just got his recent dose within the last 1-2 hours. Patient does report waking up in the middle of the night to urinate. Nursing reports he is able to spontaneously void without needing catheterization , patient does however admit that he is straining to void. Patient thinks that he has been diagnosed with congestive heart failure by someone in the past. There is no echocardiogram noted here recently. Physical Exam Vital signs: Vital Signs 08/28/18 18:00 08/29/18 06:00 Temperature 98.3 F 99.8 F H Pulse Rate 73 84 Respiratory Rate 17 19 Blood Pressure 146/71 H 164/78 H Pulse Oximetry 94 L 96 Intake & Output 08/28/18 08/29/18 08/29/18 18:59 06:59 18:59 Intake Total 960 / 960 480 / 480 480 / 480 Balance 960 / 960 480 / 480 480 / 480 Weight 101.1 kg Intake: Oral 960 / 960 480 / 480 480 / 480 Other: # Voids 3 3 Narrative: Slightly diminished breath sounds in the bases bilaterally, unlabored breathing Moderate bilateral lower extremity edema Results - Labs CBC & Chem 7: 08/22/18 09:58 08/24/18 07:12 Laboratory Results - last 24 hr 08/29/18 08/29/18 05:34 12:07 POC Glucose 111 H 120 H Assessment and Plan - Assessment (1) Gout Code(s): M10.9 - Gout, unspecified Status: Acute (2) Hypertension Code(s): I10 - Essential (primary) hypertension Status: Acute (3) Mood disorder due to known physiological condition with depressive features Code(s): F06.31 - Mood disorder due to known physiological condition with depressive features Status: Acute - Plan Patient is a 78-year-old male with past medical history of gout, HTN, DM 2 who initially came into the hospital for suicidal ideation. Per review of records patient plan to shoot himself with a gun. He is now admitted to inpatient psychiatry unit for further evaluation. Consulted for assistance with urination. Possible decreased urinary output -Possibly secondary to undiagnosed BPH versus acute heart failure. Clinically is fluid overloaded. Strict intake and output ordered -Continue Bumex twice daily -Checking BMP today as well as BNP and ordering echocardiogram to assess heart function -bladder scan patient once he completes a spontaneous void Acute kidney injury on chronic kidney disease -Was improving previously, rechecking BMP
[2018-08-29 18:49] LABS: Calcium 8.4 mg/dL (8.5-10.1); Carbon Dioxide 26.9 meq/L (21.0-32.0); Potassium 3.7 meq/L (3.5-5.1)
--- NOTE | 2018-08-29 19:37 | P.PNPSY ---
Subjective Chief Complaint: gout Remarks: Patient seen for follow-up, chart reviewed. Discussion with nursing staff reported that patient worried about his urine output. Patient was found lying hospital bed noted B, cooperative. Patient states that he wants to be able to return home but aware that he continues to require rehabilitation. He continues report mood being "the same" denying any suicide ideation at this time. Review of Systems All other systems reviewed negative except as stated in HPI Mental Status Examination Appearance: Appropriate Consciousness: Alert Orientation: x4 Motor Activity: Normal gait Speech: Unremarkable Language: Adequate Fund of Knowledge: Adequate Attention and Concentration: Adequate Memory: Unremarkable Mood: Appropriate Affect: Appropriate Thought Process & Associations: Intact Thought Content: Appropriate Hallucination Type: None Delusion Type: None Suicidal Ideation: No Suicidal Plan: No Suicidal Intention: No Homicidal Ideation: No Homicidal Plan: No Homicidal Intention: No Insight: Fair Judgment: Impulsive Assessment and Plan - Assessment (1) Mood disorder due to known physiological condition with depressive features Code(s): F06.31 - Mood disorder due to known physiological condition with depressive features Status: Acute - Plan Plan: Patient continued with stable mood, continues denying suicide ideations. We will request a consult with hospitalist due to concern of worsening renal function and increased edema lower extremities. We will order repeat BMP to monitor renal function. Continue current treatment. Continue to monitor mood and behavior. Discharge planning in progress. Justification for Continued Inpatient Stay: At risk of further decompensation at lower level care.
[2018-08-30] MEDS: Insulin NovoLOG Aspart Correctional Sugar Inj SQ SCH ×4 (04:23→16:03)
[2018-08-30] MEDS: glipiZIDE 5 MG Tablet PO SCH (06:36)
[2018-08-30] MEDS: Heparin - SQ 10,000 UNITS/ML Vial SQ SCH ×2 (09:45→22:10)
[2018-08-30] MEDS: amLODIPine 5 MG Tablet PO SCH ×2 (09:52→22:10)
[2018-08-30] MEDS: Gabapentin 100 MG Capsule PO SCH ×2 (09:52→22:10)
[2018-08-30] MEDS: OMNICEF 300 MG PO SCH (09:53)
[2018-08-30] MEDS: Famotidine 20 MG Tablet PO SCH ×2 (09:53→22:10)
[2018-08-30] MEDS: Sertraline 50 MG Tablet PO SCH (09:54)
[2018-08-30] MEDS: Allopurinol 100 MG Tablet PO SCH (09:54)
--- NOTE | 2018-08-30 16:31 | P.PNIM ---
Subjective Interval history: Nursing denies any deterioration since last night. Patient says he is able to void better. Nursing thinks his output has increased slightly. Bladder scanner was not found there are still attempting to get 1 today. Physical Exam Vital signs: Vital Signs 08/29/18 18:00 08/30/18 05:20 Temperature 98.4 F 98.3 F Pulse Rate 99 H 98 H Respiratory Rate 18 17 Blood Pressure 126/80 141/64 H Pulse Oximetry 92 L 94 L Intake & Output 08/29/18 08/30/18 08/30/18 18:59 06:59 18:59 Intake Total 1200 / 1200 720 / 720 480 / 480 Output Total 725 / 725 400 / 400 Balance 1200 / 1200 -5 / -5 80 / 80 Intake: Oral 1200 / 1200 720 / 720 480 / 480 Output: Urine 725 / 725 400 / 400 Other: # Voids 4 2 # Incontinent Voids 0 Date of Last Bowel Movement 08/29/18 08/29/18 08/29/18 Narrative: Very mild improvement lower extremity edema since his moderate at most Lying in bed sleeping, no shortness of breath Slightly diminished breath sounds in the bases, otherwise unlabored breathing Results - Labs CBC & Chem 7: 08/22/18 09:58 08/29/18 17:15 Laboratory Results - last 24 hr 08/29/18 08/29/18 08/29/18 17:15 17:15 21:21 Sodium 135 L Potassium 3.7 Chloride 99 Carbon Dioxide 26.9 Anion Gap 9 BUN 14 Creatinine 1.47 H Estimated GFR 46 L POC Glucose 120 H Random Glucose 123 H Calcium 8.4 L B-Natriuretic Peptide 223 H 08/30/18 11:32 Sodium Potassium Chloride Carbon Dioxide Anion Gap BUN Creatinine Estimated GFR POC Glucose 71 Random Glucose Calcium B-Natriuretic Peptide Assessment and Plan - Assessment (1) Gout Code(s): M10.9 - Gout, unspecified Status: Acute (2) Hypertension Code(s): I10 - Essential (primary) hypertension Status: Acute (3) Mood disorder due to known physiological condition with depressive features Code(s): F06.31 - Mood disorder due to known physiological condition with depressive features Status: Acute - Plan Patient is a 78-year-old male with past medical history of gout, HTN, DM 2 who initially came into the hospital for suicidal ideation. Per review of records patient plan to shoot himself with a gun. He is now admitted to inpatient psychiatry unit for further evaluation. Consulted for assistance with urination. Possible decreased urinary output -Subjective improvement in output after Bumex was doubled and Flomax was started -Possibly secondary to undiagnosed BPH versus acute heart failure. Clinically is fluid overloaded. Strict intake and output -Continue Bumex twice daily -BNP is only minimally elevated, echocardiogram is still pending -Bladder scan is still pending Acute kidney injury on chronic kidney disease -Possibly secondary to fluid overload state, was improving previously, mild bump today, will recheck in a.m.
--- NOTE | 2018-08-30 22:10 | P.PNPSY ---
Subjective Chief Complaint: gout Remarks: Patient seen for follow up; chart reviewed. Discussion with nursing staff reported that patient continues to have difficulty with sleep, noted and observed to use the walker to the restroom, head work with physical therapy currently and patient reports Pain has improved. Patient was found lying hospital bed noted B, cooperative. Patient states that he worked with physical therapy today stating that he is urinating better after adjustment of his medications. Patient reports eating and drinking well but his mood is "not happy but denies feeling depressed. He denies any suicide ideations at this time. Review of Systems All other systems reviewed negative except as stated in HPI Mental Status Examination Appearance: Appropriate Consciousness: Alert Orientation: x4 Motor Activity: Normal gait Speech: Unremarkable Language: Adequate Fund of Knowledge: Adequate Attention and Concentration: Adequate Memory: Unremarkable Mood: Appropriate Affect: Appropriate Thought Process & Associations: Intact Thought Content: Appropriate Hallucination Type: None Delusion Type: None Suicidal Ideation: No Suicidal Plan: No Suicidal Intention: No Homicidal Ideation: No Homicidal Plan: No Homicidal Intention: No Insight: Fair Judgment: Impulsive Assessment and Plan - Assessment (1) Mood disorder due to known physiological condition with depressive features Code(s): F06.31 - Mood disorder due to known physiological condition with depressive features Status: Acute - Plan Plan: Patient currently able to maintain stable mood not feeling depressed, denying any suicide ideations. Treatment he continues to search for [facility] facility for patient to transition to inpatient require rehabilitation. Patient continue to work with physical therapy here on the unit. We will continue current treatment. Continue to monitor mood and behavior. Discharge planning in progress. Justification for Continued Inpatient Stay: At risk of further decompensation at lower level care.
[2018-08-31] MEDS: OMNICEF 300 MG PO SCH ×3 (01:54→21:29)
[2018-08-31] MEDS: glipiZIDE 5 MG Tablet PO SCH (06:24)
[2018-08-31] MEDS: Insulin NovoLOG Aspart Correctional Sugar Inj SQ SCH (06:24)
[2018-08-31] MEDS: Gabapentin 100 MG Capsule PO SCH ×2 (08:21→21:28)
[2018-08-31] MEDS: Heparin - SQ 10,000 UNITS/ML Vial SQ SCH ×2 (08:21→21:27)
[2018-08-31] MEDS: Famotidine 20 MG Tablet PO SCH ×2 (08:22→21:28)
[2018-08-31] MEDS: Sertraline 50 MG Tablet PO SCH (08:22)
[2018-08-31] MEDS: Allopurinol 100 MG Tablet PO SCH (08:23)
[2018-08-31] MEDS: amLODIPine 5 MG Tablet PO SCH ×2 (08:23→21:28)
--- NOTE | 2018-08-31 11:09 | P.PNPSY ---
Subjective Chief Complaint: gout Remarks: Patient seen and examined in weekend coverage for Dr. Jacinto. Chart reviewed. Case discussed with nursing staff who reports patient is somewhat irritable but no real behavioral problem. On my examination today, the patient presents with somatic preoccupation. He tells me that his "bowels are impacted. My butt hole is bleeding from piles." He does not describe any symptoms of obstruction and says that he was able to have a small bowel movement this morning although it was difficult to pass. I will add some Colace to his existing regimen. He denies SI or HI. No reported side effects from medications. Hospitalist is following for physical issues. Vital Signs Temp Pulse Resp BP Pulse Ox 08/31/18 06:00 97.5 F L 80 18 127/60 98 08/30/18 18:49 97.7 F 81 16 131/68 90 L Intake and Output 08/30/18 08/31/18 08/31/18 22:59 06:59 14:59 Output Total 500 / 500 Balance -500 / -500 Output: Urine 500 / 500 Laboratory Results - last 24 hr 08/30/18 08/31/18 11:32 06:21 POC Glucose 71 84 Labs reviewed. Review of Systems All other systems reviewed negative except as stated in HPI Mental Status Examination Appearance: Appropriate Consciousness: Alert Orientation: x4 Motor Activity: Other (No motor abnormalities noted) Speech: Unremarkable Language: Adequate Fund of Knowledge: Adequate Attention and Concentration: Adequate Memory: Unremarkable (Grossly intact on clinical exam) Mood: Appropriate Affect: Appropriate Thought Process & Associations: Intact Thought Content: Appropriate Hallucination Type: None Delusion Type: None Suicidal Ideation: No Suicidal Plan: No Suicidal Intention: No Homicidal Ideation: No Homicidal Plan: No Homicidal Intention: No Insight: Fair Judgment: Impulsive Assessment and Plan - Assessment (1) Mood disorder due to known physiological condition with depressive features Code(s): F06.31 - Mood disorder due to known physiological condition with depressive features Status: Acute - Plan Plan: Add Colace 100 mg twice daily. Continue Zoloft as ordered. Hospitalist input appreciated. Continue to monitor on the inpatient unit. Continue other medications and care as ordered. Justification for Continued Inpatient Stay: Risk for decompensation Discharge Planning: Per Dr. Jacinto
--- NOTE | 2018-08-31 13:13 | ECHRPT ---
Indication: CONCLUSIONS Normal left ventricular size. Moderate concentric left ventricular hypertrophy. The left ventricular systolic function is low normal with an estimated ejection fraction in the rang e of 50- 55%. The left atrial size is tqrj-ib-ylboyjerfq dilated. Bsqwb-oj-zjly mitral valve regurgitation. Moderate thickening of the mitral valve leaflets. Moderate mitral annular calcification. Aortic valve sclerosis is present. The estimated pulmonary arterial pressure is 32there is mild tricuspid valve regurgitation. mmHg. BP: / HR: Rhythm: MEASUREMENTS (Male / Female) Normal Values Technical Quality: 2D ECHO LV Diastolic Diameter PLAX 4.8 cm 4.2 - 5.9 / 3.9 - 5.3 cm LV Systolic Diameter PLAX 3.8 cm IVS Diastolic Thickness 1.9 cm 0.6 - 1.0 / 0.6 - 0.9 cm LVPW Diastolic Thickness 1.9 cm 0.6 - 1.0 / 0.6 - 0.9 cm LV Relative Wall Thickness 0.8 RV Internal Dim ED PLAX 4.0 cm LVOT Diameter 2.1 cm Aortic Root Diameter 3.0 cm LA Systolic Diameter LX 5.1 cm 3.0 - 4.0 / 2.7 - 3.8 cm LV Ejection Fraction MOD BP 55.3 % >= 55 % LV Ejection Fraction MOD 4C 58.1 % LV Ejection Fraction 4C AL 59.5 % LV Ejection Fraction MOD 2C 60.0 % LV Ejection Fraction 2C AL 60.0 % M-MODE Aortic Root Diameter MM 3.7 cm LA Systolic Diameter MM 5.6 cm LA Ao Ratio MM 1.5 AV Cusp Separation MM 1.3 cm DOPPLER AV Peak Velocity 262.5 cm/s AV Peak Gradient 27.6 mmHg AV Mean Gradient 14.0 mmHg AV Velocity Time Integral 52.8 cm LVOT Peak Velocity 119.0 cm/s LVOT Peak Gradient 5.7 mmHg LVOT Velocity Time Integral 22.6 cm AV Area Cont Eq vti 1.5 cm AV Area Cont Eq pk 1.6 cm MV Peak Velocity 170.5 cm/s MV Peak Gradient 11.6 mmHg MV Mean Velocity 95.8 cm/s MV Mean Gradient 4.0 mmHg MV Area PHT 2.8 cm Mitral E Point Velocity 164.0 cm/s Mitral A Point Velocity 132.0 cm/s Mitral E to A Ratio 1.2 LV E' Lateral Velocity 3.6 cm/s Mitral E to LV E' Lateral Ratio 45.4 LV E' Septal Velocity 5.0 cm/s Mitral E to LV E' Septal Ratio 33.0 TR Peak Velocity 235.0 cm/s TR Peak Gradient 22.1 mmHg Right Atrial Pressure 10.0 mmHg Pulmonary Artery Systolic Pressu 32.1 mmHg Right Ventricular Systolic Press 32.1 mmHg PV Peak Velocity 112.0 cm/s PV Peak Gradient 5.0 mmHg FINDINGS LEFT VENTRICLE Normal left ventricular size. Moderate concentric left ventricular hypertrophy. The left ventricular systolic function is low normal with an estimated ejection fraction in the rang e of 50- 55%. LEFT ATRIUM The left atrial size is lucv-im-mnheiycwjt dilated. MITRAL VALVE Oicmj-[id number]-[id number] mitral valve regurgitation. Moderate thickening of the mitral valve leaflets. Moderate mitral annular calcification. AORTIC VALVE Aortic valve sclerosis is present. TRICUSPID VALVE The estimated pulmonary arterial pressure is 32there is mild tricuspid valve regurgitation. mmHg. Saige Wallace MD, FACC (Electronically Signed) Final Date:31 August 2018 13:12
--- NOTE | 2018-08-31 15:15 | P.PNIM ---
Subjective Interval history: Nursing denies any deterioration since last night. Reports that the bladder scan indicated the patient had about 150 mL's residual after the patient voided by 150 mL's. Patient himself says he is urinating much better. Physical Exam Vital signs: Vital Signs 08/30/18 18:49 08/31/18 06:00 Temperature 97.7 F 97.5 F L Pulse Rate 81 80 Respiratory Rate 16 18 Blood Pressure 131/68 127/60 Pulse Oximetry 90 L 98 Intake & Output 08/30/18 08/31/18 08/31/18 18:59 06:59 18:59 Intake Total 480 / 480 Output Total 400 / 400 500 / 500 Balance 80 / 80 -500 / -500 Intake: Oral 480 / 480 Output: Urine 400 / 400 500 / 500 Other: # Voids 2 # Incontinent Voids 0 Date of Last Bowel Movement 08/29/18 Narrative: Trace lower extremity edema on the feet Lying in bed, sleeping comfortable, not short of breath Results - Labs CBC & Chem 7: 08/22/18 09:58 08/29/18 17:15 Laboratory Results - last 24 hr 08/31/18 06:21 POC Glucose 84 Assessment and Plan - Assessment (1) Gout Code(s): M10.9 - Gout, unspecified Status: Acute (2) Hypertension Code(s): I10 - Essential (primary) hypertension Status: Acute (3) Mood disorder due to known physiological condition with depressive features Code(s): F06.31 - Mood disorder due to known physiological condition with depressive features Status: Acute - Plan Patient is a 78-year-old male with past medical history of gout, HTN, DM 2 who initially came into the hospital for suicidal ideation. Per review of records patient plan to shoot himself with a gun. He is now admitted to inpatient psychiatry unit for further evaluation. Consulted for assistance with urination. decreased urinary output possibly secondary to BPH versus acute heart failure with preserved ejection fraction -Improvement with Flomax started and Bumex scheduled twice daily, subjective improvement in output after Bumex was doubled and Flomax was started Strict intake and output -Rechecking BMP today and if renal function shows further deterioration will scale Bumex back to once a day
[2018-08-31 17:01] LABS: Calcium 8.1 mg/dL (8.5-10.1); Carbon Dioxide 31.5 meq/L (21.0-32.0); Potassium 3.5 meq/L (3.5-5.1)
[2018-08-31] MEDS: Docusate Sodium 100 MG Capsule PO SCH (21:28)
[2018-09-01] MEDS: Insulin NovoLOG Aspart Correctional Sugar Inj SQ SCH (06:16)
[2018-09-01] MEDS: glipiZIDE 5 MG Tablet PO SCH ×2 (07:13→12:13)
[2018-09-01] MEDS: Sertraline 50 MG Tablet PO SCH (08:38)
[2018-09-01] MEDS: Gabapentin 100 MG Capsule PO SCH ×2 (08:38→20:29)
[2018-09-01] MEDS: Docusate Sodium 100 MG Capsule PO SCH ×2 (08:38→20:27)
[2018-09-01] MEDS: amLODIPine 5 MG Tablet PO SCH (08:38)
[2018-09-01] MEDS: Famotidine 20 MG Tablet PO SCH (08:39)
[2018-09-01] MEDS: Allopurinol 100 MG Tablet PO SCH (08:39)
[2018-09-01] MEDS: OMNICEF 300 MG PO SCH (08:40)
[2018-09-01] MEDS: Heparin - SQ 10,000 UNITS/ML Vial SQ SCH ×2 (08:41→20:27)
--- NOTE | 2018-09-01 09:30 | P.PNPSY ---
Subjective Chief Complaint: gout Remarks: Chart reviewed and discussed with nursing staff. Patient in the day room eating breakfast. States he sleeps intermittently and takes naps during the day. Multiple somatic concerns related to back pain (from multiple falls in the past) , knee pains and gout. He is followed by a pain physician , Dr. Beverly when he is not in the hospital. He has a hospitalist consult and will ask them to review his current pain medication management. He is calm. Nursing states that he can get irritable. Denies any SI/HI. Review of Systems All other systems reviewed negative except as stated in HPI Mental Status Examination Appearance: Appropriate Consciousness: Alert Orientation: x4 Motor Activity: Other (No motor abnormalities noted) Speech: Unremarkable Language: Adequate Fund of Knowledge: Adequate Attention and Concentration: Adequate Memory: Unremarkable (Grossly intact on clinical exam) Mood: Appropriate Affect: Appropriate Thought Process & Associations: Intact Thought Content: Appropriate Hallucination Type: None Delusion Type: None Suicidal Ideation: No Suicidal Plan: No Suicidal Intention: No Homicidal Ideation: No Homicidal Plan: No Homicidal Intention: No Insight: Fair Judgment: Impulsive Assessment and Plan - Assessment (1) Mood disorder due to known physiological condition with depressive features Code(s): F06.31 - Mood disorder due to known physiological condition with depressive features Status: Acute - Plan Plan: Continue current treatment plan. Justification for Continued Inpatient Stay: Moving patient to a less restrictive environment may result in his decompensation.
[2018-09-01 16:53] LABS: Carbon Dioxide 26.4 meq/L (21.0-32.0); Potassium 3.9 meq/L (3.5-5.1)
[2018-09-01] MEDS: Melatonin 5 MG Tablet PO PRN (20:29)
[2018-09-02] MEDS: amLODIPine 5 MG Tablet PO SCH ×3 (05:15→20:54)
[2018-09-02] MEDS: OMNICEF 300 MG PO SCH ×2 (05:15→11:46)
[2018-09-02] MEDS: Famotidine 20 MG Tablet PO SCH ×2 (05:16→09:14)
[2018-09-02] MEDS: Insulin NovoLOG Aspart Correctional Sugar Inj SQ SCH (06:56)
[2018-09-02] MEDS: glipiZIDE 5 MG Tablet PO SCH (06:56)
[2018-09-02] MEDS: Allopurinol 100 MG Tablet PO SCH (09:15)
[2018-09-02] MEDS: Docusate Sodium 100 MG Capsule PO SCH ×2 (09:15→20:53)
[2018-09-02] MEDS: Gabapentin 100 MG Capsule PO SCH (09:16)
[2018-09-02] MEDS: Sertraline 50 MG Tablet PO SCH (09:16)
[2018-09-02] MEDS: Heparin - SQ 10,000 UNITS/ML Vial SQ SCH ×2 (09:16→20:57)
--- NOTE | 2018-09-02 20:26 | P.PNPSY ---
Subjective Chief Complaint: gout Remarks: Patient seen for follow-up, chart reviewed. Discussion with nursing staff reported that patient take medications states it has doubled better last night. Patient was found lying hospital bed was noted earlier in the room eating breakfast. Patient state he is feeling "okay" noted to have improved affect less irritable stating that his "gout, was found". Patient denies any suicide ideations continues report feeling weak and requiring more rehabilitation to "get stronger". Review of Systems All other systems reviewed negative except as stated in HPI Mental Status Examination Appearance: Appropriate Consciousness: Alert Orientation: x4 Motor Activity: Normal gait Speech: Unremarkable Language: Adequate Fund of Knowledge: Adequate Attention and Concentration: Adequate Memory: Unremarkable Mood: Appropriate Affect: Appropriate Thought Process & Associations: Intact Thought Content: Appropriate Hallucination Type: None Delusion Type: None Suicidal Ideation: No Suicidal Plan: No Suicidal Intention: No Homicidal Ideation: No Homicidal Plan: No Homicidal Intention: No Insight: Fair Judgment: Impulsive Assessment and Plan - Assessment (1) Mood disorder due to known physiological condition with depressive features Code(s): F06.31 - Mood disorder due to known physiological condition with depressive features Status: Acute - Plan Plan: Patient is improved affect, improved mood denying any suicide ideations. Patient continues require referral to rehabilitation program and continue to work with physical therapy while on the unit. Continue current treatment. Continue to monitor mood and behavior. Treatment team continues to search for rehab facility to have patient transition to this program prior to transitioning home. Justification for Continued Inpatient Stay: At risk of further decompensation at lower level care.
[2018-09-02 20:54] LABS: Calcium 8.2 mg/dL (8.5-10.1); Carbon Dioxide 30.3 meq/L (21.0-32.0); Potassium 3.7 meq/L (3.5-5.1)
[2018-09-03] MEDS: Gabapentin 100 MG Capsule PO SCH ×3 (02:28→20:51)
[2018-09-03] MEDS: Famotidine 20 MG Tablet PO SCH ×3 (02:29→20:51)
[2018-09-03] MEDS: OMNICEF 300 MG PO SCH ×3 (02:29→22:26)
[2018-09-03] MEDS: Insulin NovoLOG Aspart Correctional Sugar Inj SQ SCH (07:26)
[2018-09-03] MEDS: Heparin - SQ 10,000 UNITS/ML Vial SQ SCH ×2 (09:32→20:50)
[2018-09-03] MEDS: Allopurinol 100 MG Tablet PO SCH (09:33)
[2018-09-03] MEDS: Docusate Sodium 100 MG Capsule PO SCH ×2 (09:33→20:51)
[2018-09-03] MEDS: amLODIPine 5 MG Tablet PO SCH ×2 (09:33→20:51)
[2018-09-03] MEDS: Sertraline 50 MG Tablet PO SCH (09:33)
[2018-09-03] MEDS: glipiZIDE 5 MG Tablet PO SCH (09:33)
[2018-09-03 10:58] LABS: Calcium 8.3 mg/dL (8.5-10.1); Carbon Dioxide 29.2 meq/L (21.0-32.0); Potassium 3.6 meq/L (3.5-5.1)
--- NOTE | 2018-09-03 12:03 | P.PNPSY ---
Subjective Chief Complaint: gout Remarks: Reviewed electronic medical records and discussed case with staff. Follow-up was conducted in the patient's room. He is found attempting to get out of bed. He states that he "does not feel too good physically". Reports that he does not sleep at night but, does have a good appetite. He states that his mood has been "down in the dumps". He reports that he lives by himself at home and would hope to return to this living arrangement. I have counseled him to think about the challenges he will face on returning home and discussed with a counselor what level of assistance may be required. Mental Status Examination Appearance: Appropriate Consciousness: Alert Orientation: x4 Motor Activity: Normal gait Speech: Unremarkable Language: Adequate Fund of Knowledge: Adequate Attention and Concentration: Adequate Memory: Unremarkable Mood: Appropriate Affect: Appropriate Thought Process & Associations: Intact Thought Content: Appropriate Hallucination Type: None Delusion Type: None Suicidal Ideation: No Suicidal Plan: No Suicidal Intention: No Homicidal Ideation: No Homicidal Plan: No Homicidal Intention: No Insight: Fair Judgment: Impulsive Assessment and Plan - Assessment (1) Mood disorder due to known physiological condition with depressive features Code(s): F06.31 - Mood disorder due to known physiological condition with depressive features Status: Acute - Plan Plan: Continue with current treatment plan. Discharge planning in progress. Justification for Continued Inpatient Stay: Moving this patient to a less restrictive environment would likely result in decompensation.
--- NOTE | 2018-09-03 13:42 | P.PN ---
Subjective Interval history: Follow-up visit for BPH and urinary retention. Nurse does not report any acute concerns or events. Patient is seen and examined in his room resting in bed, awakens to voice and light touch. He reports that he continues to have some difficulty when getting started with urination, however is able to urinate. He denies any dysuria, hematuria, suprapubic pain, fevers, chills, N/V/D. Physical Exam Vital signs: Vital Signs 09/02/18 18:18 09/03/18 06:09 Temperature 97.8 F 98.1 F Pulse Rate 82 76 Respiratory Rate 16 18 Blood Pressure 149/62 H 147/65 H Pulse Oximetry 93 L 92 L Intake & Output 09/02/18 09/03/18 09/03/18 18:59 06:59 18:59 Intake Total 840 / 840 240 / 240 Balance 840 / 840 240 / 240 Intake: Oral 840 / 840 240 / 240 Oral Supplement 0 / 0 Other: # Voids 3 2 Date of Last Bowel Movement 08/31/18 08/31/18 08/31/18 # Bowel Movements 0 Narrative: GENERAL: Obese male asleep in bed in no acute distress who awakens to touch and voice. SKIN: Warm and dry. HEAD: Atraumatic. Normocephalic. NECK: Trachea midline. No JVD. CARDIOVASCULAR: Regular rate and rhythm. RESPIRATORY: No accessory muscle use. Clear to auscultation. Breath sounds equal bilaterally. GASTROINTESTINAL: Abdomen soft, non-tender, nondistended. +BS MUSCULOSKELETAL: Extremities without clubbing, cyanosis, or edema. No obvious deformities. NEUROLOGICAL: Asleep but will awaken. No obvious cranial nerve deficits. Motor grossly within normal limits. Normal speech. Results - Labs CBC & Chem 7: 08/22/18 09:58 09/03/18 09:18 Laboratory Results - last 24 hr 09/02/18 09/03/18 09/03/18 20:03 06:29 09:18 Sodium 133 L 135 L Potassium 3.7 3.6 Chloride 95 L 97 L Carbon Dioxide 30.3 29.2 Anion Gap 8 9 BUN 22 H 18 Creatinine 1.65 H 1.54 H Estimated GFR 41 L 44 L POC Glucose 121 H Random Glucose 110 H 94 Calcium 8.2 L 8.3 L Assessment and Plan - Assessment (1) Gout Code(s): M10.9 - Gout, unspecified Status: Acute (2) Hypertension Code(s): I10 - Essential (primary) hypertension Status: Acute (3) Mood disorder due to known physiological condition with depressive features Code(s): F06.31 - Mood disorder due to known physiological condition with depressive features Status: Acute - Plan Patient is a 78-year-old male with past medical history of gout, HTN, DM 2 who initially came into the hospital for suicidal ideation. Per review of records patient plan to shoot himself with a gun. He is now admitted to inpatient psychiatry unit for further evaluation. Consulted for assistance with urination. Decrease urination Difficulty urinating likely 2/2 undiagnosed BPH - Continue on Flomax, ongoing difficulty reported by patient, add Proscar - Hold off on diuretics, renal functions slightly improved, continue to monitor. - Check UA to r/o UTI as possible cause of difficulty with urination Acute kidney injury on chronic kidney disease Followed by -Avoid nephrotoxins -Monitor renal indices intermittently while here. DVT prophylaxis-ambulation Discussed Condition With: Patient and RN
[2018-09-03] MEDS: Melatonin 5 MG Tablet PO PRN (20:51)
[2018-09-04] MEDS: Insulin NovoLOG Aspart Correctional Sugar Inj SQ SCH (06:10)
[2018-09-04] MEDS: glipiZIDE 5 MG Tablet PO SCH (06:26)
[2018-09-04] MEDS: amLODIPine 5 MG Tablet PO SCH ×2 (09:43→22:37)
[2018-09-04] MEDS: Finasteride 5 MG Tablet PO SCH (09:43)
[2018-09-04] MEDS: Famotidine 20 MG Tablet PO SCH ×2 (09:43→20:29)
[2018-09-04] MEDS: Docusate Sodium 100 MG Capsule PO SCH ×2 (09:43→20:29)
[2018-09-04] MEDS: Heparin - SQ 10,000 UNITS/ML Vial SQ SCH ×2 (09:44→20:30)
[2018-09-04] MEDS: Allopurinol 100 MG Tablet PO SCH (09:44)
[2018-09-04] MEDS: Gabapentin 100 MG Capsule PO SCH ×2 (09:44→20:30)
[2018-09-04] MEDS: Sertraline 50 MG Tablet PO SCH (09:45)
--- NOTE | 2018-09-04 09:47 | P.PNPSY ---
Subjective Chief Complaint: gout Remarks: Reviewed electronic medical records and discussed case with staff. Follow-up was conducted in the patient's room. He was found lying in his bed awake, alert , and oriented. He reports difficulty sleeping at night but states he has had a good appetite. He still reports his mood as being depressed. We again discuss the level of care he feels he will require upon being discharged. He states that he lives alone in a house and reports being hopeful that with some home health care he will be able to continue. This may not be a realistic expectation. I again asked him to think of all the things he will require help with and consider that an [facility] may be able to meet those needs. Mental Status Examination Appearance: Appropriate Consciousness: Alert Orientation: x4 Motor Activity: Normal gait Speech: Unremarkable Language: Adequate Fund of Knowledge: Adequate Attention and Concentration: Adequate Memory: Unremarkable Mood: Appropriate Affect: Appropriate Thought Process & Associations: Intact Thought Content: Appropriate Hallucination Type: None Delusion Type: None Suicidal Ideation: No Suicidal Plan: No Suicidal Intention: No Homicidal Ideation: No Homicidal Plan: No Homicidal Intention: No Insight: Fair Judgment: Impulsive Assessment and Plan - Assessment (1) Mood disorder due to known physiological condition with depressive features Code(s): F06.31 - Mood disorder due to known physiological condition with depressive features Status: Acute - Plan Plan: Patient will be reevaluated by the attending psychiatrist. Continue with current treatment plan. Justification for Continued Inpatient Stay: Moving this patient to a less restrictive environment would likely result in decompensation.
--- NOTE | 2018-09-04 10:15 | P.PN ---
Subjective Interval history: Follow-up visit for urinary retention. Patient is seen and examined sitting on the side of bed today in no acute distress. He reports that he continues to have difficulty with urination in specific getting started. He also notices that midway through stream he will stop and start back up again. He just received first dose of Proscar this morning. He denies any fevers, chills, dysuria or abdominal pain. No acute concerns reported by nurse. Physical Exam Vital signs: Vital Signs 09/03/18 17:45 09/04/18 06:00 Temperature 98.3 F 98 F Pulse Rate 74 74 Respiratory Rate 18 17 Blood Pressure 139/63 114/76 Pulse Oximetry 94 L 92 L Intake & Output 09/03/18 09/04/18 09/04/18 18:59 06:59 18:59 Intake Total 960 / 960 0 / 0 Output Total 800 / 800 Balance 160 / 160 0 / 0 Intake: Oral 960 / 960 0 / 0 Oral Supplement 0 / 0 Output: Urine 800 / 800 Other: # Voids 1 Date of Last Bowel Movement 08/31/18 # Bowel Movements 1 0 Narrative: GENERAL: Obese male asleep in bed in no acute distress who awakens to touch and voice. SKIN: Warm and dry. HEAD: Atraumatic. Normocephalic. NECK: Trachea midline. CARDIOVASCULAR: Regular rate and rhythm. RESPIRATORY: No accessory muscle use. Clear to auscultation. Breath sounds equal bilaterally. GASTROINTESTINAL: Abdomen soft, non-tender, nondistended. +BS MUSCULOSKELETAL: Extremities without clubbing, cyanosis, or edema. No obvious deformities. NEUROLOGICAL: Awake and alert. No obvious cranial nerve deficits. Motor grossly within normal limits. Normal speech. Results - Labs CBC & Chem 7: 08/22/18 09:58 09/03/18 09:18 Laboratory Results - last 24 hr 09/03/18 09/04/18 09:18 05:51 Sodium 135 L Potassium 3.6 Chloride 97 L Carbon Dioxide 29.2 Anion Gap 9 BUN 18 Creatinine 1.54 H Estimated GFR 44 L POC Glucose 93 Random Glucose 94 Calcium 8.3 L Assessment and Plan - Assessment (1) Gout Code(s): M10.9 - Gout, unspecified Status: Acute (2) Hypertension Code(s): I10 - Essential (primary) hypertension Status: Acute (3) Mood disorder due to known physiological condition with depressive features Code(s): F06.31 - Mood disorder due to known physiological condition with depressive features Status: Acute - Plan Patient is a 78-year-old male with past medical history of gout, HTN, DM 2 who initially came into the hospital for suicidal ideation. Per review of records patient plan to shoot himself with a gun. He is now admitted to inpatient psychiatry unit for further evaluation. Consulted for assistance with urination. Decrease urination Difficulty urinating likely 2/2 undiagnosed BPH - Continue on Flomax, and recently added Proscar. - Hold off on diuretics, renal functions slightly improved, continue to monitor. - Check UA to r/o UTI as possible cause of difficulty with urination, yet to be collected. Acute kidney injury on chronic kidney disease Followed by -Avoid nephrotoxins -Monitor renal indices intermittently while here. DVT prophylaxis-ambulation Discussed Condition With: Patient and RN
[2018-09-04] MEDS: OMNICEF 300 MG PO SCH ×2 (11:11→22:38)
[2018-09-04] MEDS: Melatonin 5 MG Tablet PO PRN (20:30)
[2018-09-05 00:38] LABS: Bilirubin,Urine Negative (Negative); Clarity,Urine Clear (Clear); Color,Urine Yellow (Yellw/Straw); Glucose,Urine (UA) Negative (Negative); Leukocyte Esterase,Urine Negative (Negative); Nitrite,Urine Negative (Negative); PH,Urine 5.5 (5.0-8.5); Urobilinogen,Urine 0.2 mg/dL (Less than 2)
[2018-09-05 00:47] LABS: Specific Gravity,Urine 1.015 (1.002-1.035)
[2018-09-05 01:18] LABS: RBC,Urine 0-3 /hpf (0-3); WBC,Urine 0-5 /hpf (0-5)
[2018-09-05 01:19] LABS: Bacteria,Urine Rare /hpf; Squamous Epithelial Cell,Urine 0-5 /hpf (0-5)
[2018-09-05 01:20] LABS: Hyaline Casts,Urine 0-3 /lpf (0-3); Mucus,Urine Rare /lpf (Occasional)
[2018-09-05] MEDS: glipiZIDE 5 MG Tablet PO SCH (10:30)
[2018-09-05] MEDS: Docusate Sodium 100 MG Capsule PO SCH (10:30)
[2018-09-05] MEDS: Finasteride 5 MG Tablet PO SCH (10:30)
[2018-09-05] MEDS: Famotidine 20 MG Tablet PO SCH ×2 (10:30→21:29)
[2018-09-05] MEDS: Allopurinol 100 MG Tablet PO SCH (10:30)
[2018-09-05] MEDS: Heparin - SQ 10,000 UNITS/ML Vial SQ SCH ×2 (10:31→21:30)
[2018-09-05] MEDS: Gabapentin 100 MG Capsule PO SCH ×2 (10:31→21:29)
[2018-09-05] MEDS: OMNICEF 300 MG PO SCH ×2 (10:32→22:06)
[2018-09-05] MEDS: amLODIPine 5 MG Tablet PO SCH ×2 (10:32→21:30)
[2018-09-05] MEDS: Sertraline 50 MG Tablet PO SCH (10:33)
--- NOTE | 2018-09-05 10:49 | P.PN ---
Subjective Interval history: Follow-up visit for urinary retention. Patient seen and examined resting in bed appears to be in no acute distress. Reports he is not doing well today because he is depressed. Question on how his urinary retention problem is going , he is irritable and states that he did not have this problem prior to coming to the hospital. He later states that he is followed by a urologist who he sees frequently. Ongoing difficulty with voiding with intermittent pauses and stream. We discussed the addition of bethanechol to assist with symptoms. Patient denies any fevers, chills, nausea, or vomiting. Reports intermittent diarrhea as well as constipation, noted to have taken milk of magnesia several days prior to diarrhea due to constipation. Will hold Colace for the moment. Physical Exam Vital signs: Vital Signs 09/04/18 17:55 09/05/18 06:04 Temperature 97.7 F 98.8 F Pulse Rate 83 76 Respiratory Rate 17 18 Blood Pressure 136/61 137/68 Pulse Oximetry 92 L 88 L Intake & Output 09/04/18 09/05/18 09/05/18 18:59 06:59 18:59 Intake Total 240 / 240 700 / 700 Balance 240 / 240 700 / 700 Weight 103 kg Intake: Oral 240 / 240 600 / 600 Oral Supplement 100 / 100 Other: # Voids 1,300 # Urine Diapers 2 Date of Last Bowel Movement 09/04/18 09/04/18 Narrative: GENERAL: Obese male resting in bed in no acute distress. SKIN: Warm and dry. HEAD: Atraumatic. Normocephalic. NECK: Trachea midline. GASTROINTESTINAL: Abdomen soft, non-tender, nondistended. +BS MUSCULOSKELETAL: Extremities without clubbing, cyanosis, or edema. No obvious deformities. NEUROLOGICAL: Awake and alert. No obvious cranial nerve deficits. Motor grossly within normal limits. Normal speech. Results - Labs CBC & Chem 7: 08/22/18 09:58 09/05/18 11:40 Laboratory Results - last 24 hr 09/04/18 09/05/18 Unknown 06:29 POC Glucose 113 H Urine Color Yellow Urine Clarity Clear Urine pH 5.5 Ur Specific [place] 1.015 Urine Protein 300 or greater H Urine Glucose (UA) Negative Urine Ketones Negative Urine Occult Blood Small H Urine Nitrate Negative Urine Bilirubin Negative Urine Urobilinogen 0.2 Ur Leukocyte Esterase Negative Urine RBC 0-3 Urine WBC 0-5 Ur Squamous Epith Cells 0-5 Urine Bacteria Rare H Hyaline Casts 0-3 Urine Mucus Rare H Micro UA Comment Culture not ind Ur Microscopic Review Not Reportable Urine Culture Comments Culture not ind Assessment and Plan - Assessment (1) Gout Code(s): M10.9 - Gout, unspecified Status: Acute (2) Hypertension Code(s): I10 - Essential (primary) hypertension Status: Acute (3) Mood disorder due to known physiological condition with depressive features Code(s): F06.31 - Mood disorder due to known physiological condition with depressive features Status: Acute - Plan Patient is a 78-year-old male with past medical history of gout, HTN, DM 2 who initially came into the hospital for suicidal ideation. Per review of records patient plan to shoot himself with a gun. He is now admitted to inpatient psychiatry unit for further evaluation. Consulted for assistance with urination. Difficulty urinating likely 2/2 undiagnosed BPH - Continue on Flomax and Proscar, add bethanechol. Patient reports he has a urologist who he follows up with regularly. - Hold off on diuretics -Recheck UA was negative Acute kidney injury on chronic kidney disease Followed by -Avoid nephrotoxins -Monitor renal indices intermittently while here. DVT prophylaxis-ambulation Discussed Condition With: Discussed with patient and ALLAN Santizo
[2018-09-05 12:36] LABS: Calcium 8.5 mg/dL (8.5-10.1); Carbon Dioxide 27.6 meq/L (21.0-32.0); Potassium 3.6 meq/L (3.5-5.1)
[2018-09-05] MEDS: Insulin NovoLOG Aspart Correctional Sugar Inj SQ SCH (13:04)
--- NOTE | 2018-09-05 14:30 | P.PNPSY ---
Subjective Chief Complaint: gout Remarks: Reviewed electronic medical records and discussed case with staff. Follow-up was conducted in the patient's room. He was found lying in bed. When I entered the room the medical [employer] OFFICER was attempting to assess him. The patient was extremely irritable and short with her. When asked how he felt he reported "no good". States that he still feels sick. Began to go off on a tangent about receiving "too much medication at this hospital". I explained to the patient that each medication that he has been prescribed has been in response to a complaint were an issue which he has brought up. He states that he is just a little depressed and always is a little depressed and would like to go home. He was on to make the claim that he only said he was suicidal because it is "doctor told me to if I wanted to get admitted to the hospital". Mental Status Examination Appearance: Appropriate Consciousness: Alert Orientation: x4 Motor Activity: Normal gait Speech: Unremarkable Language: Adequate Fund of Knowledge: Adequate Attention and Concentration: Adequate Memory: Unremarkable Mood: Appropriate Affect: Appropriate Thought Process & Associations: Intact Thought Content: Appropriate Hallucination Type: None Delusion Type: None Suicidal Ideation: No Suicidal Plan: No Suicidal Intention: No Homicidal Ideation: No Homicidal Plan: No Homicidal Intention: No Insight: Fair Judgment: Impulsive Assessment and Plan - Assessment (1) Mood disorder due to known physiological condition with depressive features Code(s): F06.31 - Mood disorder due to known physiological condition with depressive features Status: Acute - Plan Plan: Patient will be reevaluated by the attending psychiatrist. Continue with current treatment plan. Justification for Continued Inpatient Stay: Moving this patient to a less restrictive environment would likely result in decompensation.
[2018-09-06] MEDS: Finasteride 5 MG Tablet PO SCH (09:26)
[2018-09-06] MEDS: Gabapentin 100 MG Capsule PO SCH ×2 (09:27→21:06)
[2018-09-06] MEDS: Heparin - SQ 10,000 UNITS/ML Vial SQ SCH ×2 (09:27→21:06)
[2018-09-06] MEDS: amLODIPine 5 MG Tablet PO SCH ×2 (09:27→21:06)
[2018-09-06] MEDS: OMNICEF 300 MG PO SCH ×2 (09:27→21:07)
[2018-09-06] MEDS: Famotidine 20 MG Tablet PO SCH ×2 (09:27→21:07)
[2018-09-06] MEDS: Insulin NovoLOG Aspart Correctional Sugar Inj SQ SCH (09:28)
[2018-09-06] MEDS: Allopurinol 100 MG Tablet PO SCH (09:29)
[2018-09-06] MEDS: Sertraline 50 MG Tablet PO SCH (09:29)
[2018-09-06] MEDS: glipiZIDE 5 MG Tablet PO SCH (09:34)
--- NOTE | 2018-09-06 13:02 | P.PN ---
Subjective Interval history: Follow-up visit for urinary hesitancy. Spoke with nurse reports patient had a drop in his oxygen saturation overnight therefore was placed on nasal cannula, will be transferred to medical psychiatry unit. Patient is seen and examined sitting up in a chair in the steiner and appears to be in no acute distress. He denies any shortness of breath at the moment, cough, chest pain, headache or dizziness. He does report some nausea due to the amount of pills he is taking. Continues to complain of hesitancy with urination as well as pauses in between but able to urinate. Physical Exam Vital signs: Vital Signs 09/05/18 18:32 09/06/18 06:00 09/06/18 08:00 Temperature 98.5 F 97.5 F L Pulse Rate 85 85 Respiratory Rate 18 16 Blood Pressure 148/67 H 122/56 L Pulse Oximetry 87 L 92 L Intake & Output 09/05/18 09/06/18 09/06/18 18:59 06:59 18:59 Intake Total 720 / 720 120 / 120 Balance 720 / 720 120 / 120 Weight 103 kg Intake: Oral 720 / 720 120 / 120 Other: # Voids 3 1 Date of Last Bowel Movement 09/04/18 09/04/18 Narrative: GENERAL: Obese male resting in bed in no acute distress. SKIN: Warm and dry. HEAD: Atraumatic. Normocephalic. NECK: Trachea midline. CARDIOVASCULAR: Regular rate and rhythm, no murmurs auscultated RESPIRATORY: Lung sounds clear, slightly diminished at bases with no crackles or rhonchi noted. GASTROINTESTINAL: Abdomen soft, non-tender, nondistended. +BS MUSCULOSKELETAL: Extremities without clubbing or cyanosis. Bilateral foot and leg trace edema. No obvious deformities. NEUROLOGICAL: Awake and alert. No obvious cranial nerve deficits. Motor grossly within normal limits. Normal speech. Results - Labs CBC & Chem 7: 08/22/18 09:58 09/06/18 12:50 Laboratory Results - last 24 hr 09/06/18 06:28 POC Glucose 109 Assessment and Plan - Assessment (1) Gout Code(s): M10.9 - Gout, unspecified Status: Acute (2) Hypertension Code(s): I10 - Essential (primary) hypertension Status: Acute (3) Mood disorder due to known physiological condition with depressive features Code(s): F06.31 - Mood disorder due to known physiological condition with depressive features Status: Acute - Plan Patient is a 78-year-old male with past medical history of gout, HTN, DM 2 who initially came into the hospital for suicidal ideation. Per review of records patient plan to shoot himself with a gun. He is now admitted to inpatient psychiatry unit for further evaluation. Consulted for assistance with urination. Difficulty urinating likely 2/2 undiagnosed BPH - Continue on Flomax and Proscar, add bethanechol. Patient reports he has a urologist who he follows up with regularly. - Hold off on diuretics -Recheck UA was negative Acute kidney injury on chronic kidney disease Followed by -Avoid nephrotoxins -BMP with slight increase in creatinine to 1.86 and BUN 21, one-time dose of Lasix today, continue to monitor renal function closely. Lower extremity edema Possible heart failure with preserved EF -Patient had 2D echo completed 08/30 which showed normal LV size, moderate concentric LV hypertrophy, EF 50-55%, left atrial is mild to moderate dilated. Trace to mild MVR, moderate thickening of MV leaflets, moderate mitral annular calcification. Aortic valve stenosis present. -Patient was previously on Bumex however this was discontinued secondary to increase in renal function -BNP 223-->228, chest x-ray with cardiomegaly with positive fluid balance, patchy left lung zone airspace disease presumably atelectasis. -Patient to be transferred to medical psychiatry unit. Lasix 40 mg x1 -Recheck BMP tomorrow DVT prophylaxis-ambulation Discussed Condition With: Patient and RN
[2018-09-06 13:26] LABS: Calcium 8.5 mg/dL (8.5-10.1); Carbon Dioxide 28.5 meq/L (21.0-32.0); Potassium 3.9 meq/L (3.5-5.1)
--- NOTE | 2018-09-06 13:36 | XR ---
EXAM DATE: 09/06/2018 1:22 PM EDT AGE/SEX: 78 years / Male INDICATIONS: Short of breath. CLINICAL DATA: This is the patient's initial encounter. Patient reports that signs and symptoms have been present for 1 week and indicates a pain score of 0/10. MEDICAL/SURGICAL HISTORY: . CHF . none known COMPARISON: [facility] – [place], CHEST 1V SINGLE AP, 08/19/2018. . FINDINGS: Diffuse interstitial prominence. Patchy airspace disease in the left lower lung zone. Cardiac silhoue tte is enlarged with indistinct central probably vascularity. Remainder of the exam is unchanged. CONCLUSION: 1. Cardiomegaly with positive fluid balance. 2. Patchy left lower lung zone airspace disease, presumably atelectasis. Electronically signed by: Feliberto Aden MD 09/06/2018 1:35 PM EDT
--- NOTE | 2018-09-06 15:41 | P.PNPSY ---
Subjective Chief Complaint: gout Remarks: Patient seen for follow-up, chart reviewed. Discussion with nursing staff reported that patient noted with decreased O2 sats yesterday along with increased lower extremity edema and noted with more difficulty with ambulation. Patient was found sitting on hospital chair, noted to be with decreased energy , with nasal cannula for O2 supplementation. He states that pain from gout has decreased but is noting more difficulty with ambulation, and although denies any shortness of breath has noted more exhaustion with ambulation. He states that he would like to go home but aware that he continues to require medical stabilization. Review of Systems All other systems reviewed negative except as stated in HPI Mental Status Examination Appearance: Appropriate Consciousness: Alert Orientation: x4 Motor Activity: Normal gait Speech: Unremarkable Language: Adequate Fund of Knowledge: Adequate Attention and Concentration: Adequate Memory: Unremarkable Mood: Appropriate Affect: Appropriate Thought Process & Associations: Intact Thought Content: Appropriate Hallucination Type: None Delusion Type: None Suicidal Ideation: No Suicidal Plan: No Suicidal Intention: No Homicidal Ideation: No Homicidal Plan: No Homicidal Intention: No Insight: Fair Judgment: Impulsive Assessment and Plan - Assessment (1) Mood disorder due to known physiological condition with depressive features Code(s): F06.31 - Mood disorder due to known physiological condition with depressive features Status: Acute - Plan Plan: Patient noted to have more difficulty with ambulation as patient noted to be less visible on the unit and remains mostly in his room. Patient noted with increased edema of LE, although denying depressed mood, noted with dysphoric affect due to worsening physical capacity as stated in HPI. Patient will be moved back to medical/psychiatry unit for further medical management. Continue current treatment, hospitalist input appreciated. Discharge planning in progress. Justification for Continued Inpatient Stay: At risk for further decompensation at lower level of care.
[2018-09-07] MEDS: Insulin NovoLOG Aspart Correctional Sugar Inj SQ SCH (06:06)
[2018-09-07] MEDS: glipiZIDE 5 MG Tablet PO SCH ×2 (06:06→06:08)
[2018-09-07 07:52] LABS: Calcium 7.8 mg/dL (8.5-10.1); Carbon Dioxide 29.5 meq/L (21.0-32.0); Potassium 3.7 meq/L (3.5-5.1)
[2018-09-07] MEDS: amLODIPine 5 MG Tablet PO SCH ×2 (08:38→20:13)
[2018-09-07] MEDS: Gabapentin 100 MG Capsule PO SCH ×2 (08:38→20:13)
[2018-09-07] MEDS: Finasteride 5 MG Tablet PO SCH (08:38)
[2018-09-07] MEDS: Famotidine 20 MG Tablet PO SCH ×2 (08:39→20:12)
[2018-09-07] MEDS: Heparin - SQ 10,000 UNITS/ML Vial SQ SCH ×2 (08:39→20:13)
[2018-09-07] MEDS: Sertraline 50 MG Tablet PO SCH (08:39)
[2018-09-07] MEDS: Allopurinol 100 MG Tablet PO SCH (08:40)
[2018-09-07] MEDS: OMNICEF 300 MG PO SCH ×2 (08:40→20:14)
--- NOTE | 2018-09-07 09:03 | P.PN ---
Subjective Interval history: Follow-up visit for leg edema, low oxygen saturation, and suspected BPH. Patient seen and examined sitting up in bed with nurse is at bedside, currently on 4 L nasal cannula with oxygen saturation at 88-89%. Patient denies any shortness of breath, intermittent cough that is nonproductive. No fevers or chills, headache, muscle aches, nausea or vomiting. Patient states that he is urinating much better with no reports of hesitancy. Nurse does not report any acute events overnight or this morning. Physical Exam Vital signs: Vital Signs 09/07/18 05:58 Temperature 98 F Pulse Rate 84 Respiratory Rate 16 Blood Pressure 106/53 L Pulse Oximetry 88 L Intake & Output 09/06/18 09/07/18 09/07/18 18:59 06:59 18:59 Intake Total 240 / 240 Balance 240 / 240 Intake: Oral 240 / 240 Other: # Voids 1 Date of Last Bowel Movement 09/04/18 Narrative: GENERAL: Obese male resting in bed in no acute distress. SKIN: Warm and dry. HEAD: Atraumatic. Normocephalic. NECK: Trachea midline. CARDIOVASCULAR: Regular rate and rhythm, no murmurs auscultated RESPIRATORY: Lung sounds clear, slightly diminished at bases with no crackles or rhonchi noted. On 4 L nasal cannula. GASTROINTESTINAL: Abdomen soft, non-tender, nondistended. +BS MUSCULOSKELETAL: Extremities without clubbing or cyanosis. Bilateral foot and leg trace edema, improved. No obvious deformities. NEUROLOGICAL: Awake and alert. No obvious cranial nerve deficits. Motor grossly within normal limits. Normal speech. Results - Labs CBC & Chem 7: 08/22/18 09:58 09/07/18 06:52 Laboratory Results - last 24 hr 09/06/18 09/06/18 09/07/18 12:50 12:50 05:38 Sodium 134 L Potassium 3.9 Chloride 98 Carbon Dioxide 28.5 Anion Gap 8 BUN 21 H Creatinine 1.86 H Estimated GFR 35 L POC Glucose 141 H Random Glucose 136 H Calcium 8.5 B-Natriuretic Peptide 228 H 09/07/18 06:52 Sodium 136 Potassium 3.7 Chloride 99 Carbon Dioxide 29.5 Anion Gap 8 BUN 24 H Creatinine 1.72 H Estimated GFR 39 L POC Glucose Random Glucose 116 H Calcium 7.8 L B-Natriuretic Peptide - Imaging Impressions Chest X-Ray 09/06/18 00:00 CONCLUSION: 1. Cardiomegaly with positive fluid balance. 2. Patchy left lower lung zone airspace disease, presumably atelectasis. Assessment and Plan - Assessment (1) Gout Code(s): M10.9 - Gout, unspecified Status: Acute (2) Hypertension Code(s): I10 - Essential (primary) hypertension Status: Acute (3) Mood disorder due to known physiological condition with depressive features Code(s): F06.31 - Mood disorder due to known physiological condition with depressive features Status: Acute - Plan Patient is a 78-year-old male with past medical history of gout, HTN, DM 2 who initially came into the hospital for suicidal ideation. Per review of records patient plan to shoot himself with a gun. He is now admitted to inpatient psychiatry unit for further evaluation. Consulted for assistance with urination. Difficulty urinating likely 2/2 undiagnosed BPH - Continue on Flomax and Proscar, and bethanechol. No reports of hesitancy today. -Recheck UA was negative Acute kidney injury on chronic kidney disease Followed by -Avoid nephrotoxins -Renal function stable, continue to monitor. Lower extremity edema Possible heart failure with preserved EF -Patient had 2D echo completed 08/30 which showed normal LV size, moderate concentric LV hypertrophy, EF 50-55%, left atrial is mild to moderate dilated. Trace to mild MVR, moderate thickening of MV leaflets, moderate mitral annular calcification. Aortic valve stenosis present. -Patient was previously on Bumex however this was discontinued secondary to increase in renal function -BNP 223-->228, chest x-ray with cardiomegaly with positive fluid balance, patchy left lung zone airspace disease presumably atelectasis. -s/p IV Lasix yesterday, repeat dose today -Patient requiring 4 L nasal cannula with sats in the high 80s to low 90s, check d-dimer, check CT of the chest -Leg edema with some improvement, accurate I&O's, compression stockings DVT prophylaxis-ambulation Discussed Condition With: Patient and RN
--- NOTE | 2018-09-07 17:13 | P.PNPSY ---
Subjective Chief Complaint: gout Remarks: Patient was seen and case discussed with nursing. Patient is pleasant and cooperative during the interview. He is behaving well on the unit. Gets somewhat contradicting answers concerning his mood. Eating and sleeping well per nursing. Denies suicidal or homicidal ideation intent or plan Mental Status Examination Appearance: Appropriate Consciousness: Alert Orientation: x4 Motor Activity: Normal gait Speech: Unremarkable Language: Adequate Fund of Knowledge: Adequate Attention and Concentration: Adequate Memory: Unremarkable Mood: Appropriate Affect: Appropriate Thought Process & Associations: Intact Thought Content: Appropriate Hallucination Type: None Delusion Type: None Suicidal Ideation: No Suicidal Plan: No Suicidal Intention: No Homicidal Ideation: No Homicidal Plan: No Homicidal Intention: No Insight: Fair Judgment: Impulsive Assessment and Plan - Assessment (1) Mood disorder due to known physiological condition with depressive features Code(s): F06.31 - Mood disorder due to known physiological condition with depressive features Status: Acute - Plan Plan: Patient noted to have more difficulty with ambulation as patient noted to be less visible on the unit and remains mostly in his room. Patient noted with increased edema of LE, although denying depressed mood, noted with dysphoric affect due to worsening physical capacity as stated in HPI. Patient will be moved back to medical/psychiatry unit for further medical management. Continue current treatment, hospitalist input appreciated. Discharge planning in progress. Justification for Continued Inpatient Stay: Patient would decompensate in a less restrictive setting
--- NOTE | 2018-09-07 19:34 | CT ---
EXAM DATE: 09/07/2018 7:08 PM EDT AGE/SEX: 78 years / Male INDICATIONS: Shortness of breath. CLINICAL DATA: This is the patient's initial encounter. Patient reports that signs and symptoms have been present for 1 day and indicates a pain score of 0/10. MEDICAL/SURGICAL HISTORY: Congestive heart failure. Diabetes. Hypertension. None. RADIATION DOSE: 9.59 CTDI (mGy) COMPARISON: [facility] – [place], CHEST 1V SINGLE AP, 09/06/2018. . TECHNIQUE: Multiple contiguous axial images were obtained through the chest without contrast. Image s were obtained in suspended respiration using multiple row detector helical technique. Using automa esteban exposure control and adjustment of the mA and/or kV according to patient size, radiation dose was kept as low as reasonably achievable to obtain optimal diagnostic quality images. DICOM format imag e data is available electronically for review and comparison. FINDINGS: Noncontrast study was done. There is left-sided volume loss. Vague masslike area with bronchial thick ening seen in the left hilum. Small bilateral pleural effusions are present and there is dependent/co mpressive atelectasis of both lower lobes. An area of pneumonic appearing infiltrate is seen in the l eft upper lobe, series 3 image 19. Localized area of tree-in-bud type inflammatory infiltrate is seen in the right middle lobe, series 3 image 30. There are diffuse groundglass opacities and mild interl obular septal thickening of both lungs suggesting mild pulmonary edema. Heart is enlarged, mostly left atrium and left ventricle. There is calcification of the mitral valve. Coronary artery calcification noted. Small stones seen in the visualized gallbladder. There is a small hiatal hernia. CONCLUSION: 1. Suspected left hilar mass. Contrast-enhanced chest CT recommended when clinically feasible. 2. Mild acute congestive heart failure including small bilateral pleural effusions. 3. Left upper lobe pneumonia. 4. Focal atypical appearing infiltrate of the right middle lobe. 5. Dependent atelectasis of both lower lobes. 6. Enlarged heart. 7. Coronary artery calcification. 8. Mild to mild calcification. 9. Small hiatal hernia. 10. Cholelithiasis. Electronically signed by: Roland George MD 09/07/2018 7:33 PM EDT
[2018-09-08] MEDS: glipiZIDE 5 MG Tablet PO SCH ×2 (05:43→05:59)
[2018-09-08] MEDS: Insulin NovoLOG Aspart Correctional Sugar Inj SQ SCH (05:59)
[2018-09-08] MEDS ORDERED: Vancomycin Consult Pharmacy OTHER PRN (07:19)
[2018-09-08] MEDS ORDERED: Vancomycin Inj 1,000 MG in Sodium Chlor 0.9% Inj 250 ML IV.SIG ONE (07:20)
[2018-09-08] MEDS: Finasteride 5 MG Tablet PO SCH (08:28)
[2018-09-08] MEDS: Famotidine 20 MG Tablet PO SCH ×2 (08:28→20:31)
[2018-09-08] MEDS: Sertraline 50 MG Tablet PO SCH (08:28)
[2018-09-08] MEDS: amLODIPine 5 MG Tablet PO SCH ×2 (08:28→20:31)
[2018-09-08] MEDS: Allopurinol 100 MG Tablet PO SCH (08:28)
[2018-09-08] MEDS: Gabapentin 100 MG Capsule PO SCH ×2 (08:28→20:31)
[2018-09-08] MEDS: OMNICEF 300 MG PO SCH ×2 (08:29→20:32)
[2018-09-08] MEDS: Heparin - SQ 10,000 UNITS/ML Vial SQ SCH ×2 (08:29→20:31)
--- NOTE | 2018-09-08 08:43 | P.PN ---
Subjective Interval history: Follow-up visit for hypoxia, fluid overload and urinary retention. Patient is seen and examined sitting up in bed, he is awake, alert and oriented x3. He denies any SOB, fevers, chills, N/V/D, headache or dizziness. Patient reports he is voiding adequately, endorses some constipation. Nurse does not report any acute events overnight or this morning. Oxygen saturation 89 on nasal cannula 4 L, patient is a mouth breather and with facemask oxygen saturations improved to 93-94%. Physical Exam Vital signs: Vital Signs 09/07/18 13:36 09/07/18 17:21 09/07/18 17:53 Temperature 100.3 F H Pulse Rate 82 86 Respiratory Rate 12 18 Blood Pressure 121/58 L Pulse Oximetry 93 L 93 L 09/07/18 17:56 09/07/18 21:34 09/08/18 05:59 Temperature 98.2 F Pulse Rate 85 Respiratory Rate 17 Blood Pressure 146/67 H Pulse Oximetry 94 L 92 L 87 L 09/08/18 08:00 Temperature Pulse Rate Respiratory Rate Blood Pressure Pulse Oximetry 93 L Intake & Output 09/07/18 09/08/18 09/08/18 19:59 06:59 18:59 Intake Total Output Total Balance Intake: Oral Output: Urine Narrative: GENERAL: Obese male resting in bed in no acute distress. SKIN: Warm and dry. HEAD: Atraumatic. Normocephalic. NECK: Trachea midline. CARDIOVASCULAR: Regular rate and rhythm, no murmurs auscultated RESPIRATORY: Upper lung sounds clear, left lower lobe faint fine crackles noted. No tachypnea noted, unlabored. On 4 L nasal cannula. GASTROINTESTINAL: Abdomen soft, non-tender, nondistended. +BS MUSCULOSKELETAL: Extremities without clubbing or cyanosis. Bilateral foot and leg trace edema, improved. No obvious deformities. NEUROLOGICAL: Awake and alert. No obvious cranial nerve deficits. Motor grossly within normal limits. Normal speech. Results - Labs CBC & Chem 7: 08/22/18 09:58 09/07/18 06:52 Laboratory Results - last 24 hr 09/07/18 09/08/18 10:28 05:27 D-Dimer Quant (PE/DVT) 2.48 H POC Glucose 143 H - Imaging Impressions Chest CT 09/07/18 00:00 CONCLUSION: 1. Suspected left hilar mass. Contrast-enhanced chest CT recommended when clinically feasible. 2. Mild acute congestive heart failure including small bilateral pleural effusions. 3. Left upper lobe pneumonia. 4. Focal atypical appearing infiltrate of the right middle lobe. 5. Dependent atelectasis of both lower lobes. 6. Enlarged heart. 7. Coronary artery calcification. 8. Mild to mild calcification. 9. Small hiatal hernia. 10. Cholelithiasis. Assessment and Plan - Assessment (1) Gout Code(s): M10.9 - Gout, unspecified Status: Acute (2) Hypertension Code(s): I10 - Essential (primary) hypertension Status: Acute (3) Mood disorder due to known physiological condition with depressive features Code(s): F06.31 - Mood disorder due to known physiological condition with depressive features Status: Acute - Plan Patient is a 78-year-old male with past medical history of gout, HTN, DM 2 who initially came into the hospital for suicidal ideation. Per review of records patient plan to shoot himself with a gun. He is now admitted to inpatient psychiatry unit for further evaluation. Consulted for assistance with urination. Lower extremity edema Possible heart failure with preserved EF -Patient had 2D echo completed 08/30 which showed normal LV size, moderate concentric LV hypertrophy, EF 50-55%, left atrial is mild to moderate dilated. Trace to mild MVR, moderate thickening of MV leaflets, moderate mitral annular calcification. Aortic valve stenosis present. -Patient was previously on Bumex however this was discontinued secondary to increase in renal function -BNP 223-->228, chest x-ray with cardiomegaly with positive fluid balance, patchy left lung zone airspace disease presumably atelectasis. -Continue IV Lasix, 20 mg daily times 3 days -Continue accurate I&O's, compression stockings, nasal cannula, facemask for mouth breathing. Hypoxia, multifactorial Healthcare associated pneumonia -D-dimer 2.48, check VQ scan, no CTA at the moment due to renal function -CBC this morning yet to be drawn, check pro-calcitonin level, low-grade temp yesterday afternoon of 100.3, afebrile this morning -Chest CT scan reviewed, suspected left hilar mass, contrast chest CT recommended when clinically feasible. Mild CHF with small bilateral pleural effusions. Left upper lobe pneumonia, focal atypical appearing infiltrate in right middle lobe. Dependent atelectasis both lower lobes, enlarged heart, coronary artery calcifications, mitral valve calcification, small hiatal hernia and cholelithiasis noted. -Start empiric antibiotics for healthcare associated pneumonia. IV cefepime and vancomycin -Continue scheduled duo nebs, incentive spirometry and mobilization. Difficulty urinating likely 2/2 undiagnosed BPH - Continue on Flomax and Proscar, and bethanechol. -Recheck UA was negative -No reports of hesitancy. Acute kidney injury on chronic kidney disease Followed by -Avoid nephrotoxins -Renal function stable, BMP this morning it to be collected. DVT prophylaxis-ambulation Discussed Condition With: Patient and RN
[2018-09-08] MEDS: Vancomycin Inj 1,500 MG in Sodium Chlor 0.9% Inj 500 ML IV.SIG SCH (10:17)
[2018-09-08 11:58] LABS: Baso % (Auto) 0.3 % (0.0-2.0); Eos # (Auto) 0.1 th/mm3 (0.0-0.4); Eos % (Auto) 0.9 % (0.0-4.0); Hematocrit 25.9 % (39.0-51.0); Lymph # (Auto) 0.5 th/mm3 (1.0-4.8); Lymph % (Auto) 6.8 % (9.0-44.0); Mean Corpuscular HGB Conc 34.7 % (32.0-36.0); Mean Corpuscular Hemoglobin 28.2 pg (27.0-34.0); Mean Corpuscular Volume 81.1 fL (80.0-100.0); Mean Platelet Volume 6.4 fL (7.0-11.0); Mono # (Auto) 0.7 th/mm3 (0.0-0.9); Mono % (Auto) 8.9 % (0.0-8.0); Neut # (Auto) 6.7 th/mm3 (1.8-7.7); Neut % (Auto) 83.1 % (16.0-70.0); Platelet Count 151 th/mm3 (150-450); Red Blood Count 3.19 mil/mm3 (4.50-5.90); Red Cell Distribution Width 15.8 % (11.6-17.2); White Blood Count 8.1 th/mm3 (4.0-11.0)
[2018-09-08 12:11] LABS: Calcium 8.2 mg/dL (8.5-10.1); Carbon Dioxide 29.4 meq/L (21.0-32.0); Potassium 3.8 meq/L (3.5-5.1)
--- NOTE | 2018-09-08 13:36 | P.PNPSY ---
Subjective Chief Complaint: gout Remarks: Patient was seen and case discussed with nursing. Patient remains ambivalent about her suicidal ideation. He has had new medical updates for infiltrates were found on on imaging and he will get a VQ scan. Compliant with medications Mental Status Examination Appearance: Appropriate Consciousness: Alert Orientation: x4 Motor Activity: Normal gait Speech: Unremarkable Language: Adequate Fund of Knowledge: Adequate Attention and Concentration: Adequate Memory: Unremarkable Mood: Appropriate Affect: Appropriate Thought Process & Associations: Intact Thought Content: Appropriate Hallucination Type: None Delusion Type: None Suicidal Ideation: No Suicidal Plan: No Suicidal Intention: No Homicidal Ideation: No Homicidal Plan: No Homicidal Intention: No Insight: Fair Judgment: Impulsive Assessment and Plan - Assessment (1) Mood disorder due to known physiological condition with depressive features Code(s): F06.31 - Mood disorder due to known physiological condition with depressive features Status: Acute - Plan Plan: Patient noted to have more difficulty with ambulation as patient noted to be less visible on the unit and remains mostly in his room. Patient noted with increased edema of LE, although denying depressed mood, noted with dysphoric affect due to worsening physical capacity as stated in HPI. Patient will be moved back to medical/psychiatry unit for further medical management. Continue current treatment, hospitalist input appreciated. Discharge planning in progress. Justification for Continued Inpatient Stay: Patient would decompensate in a less restrictive setting
--- NOTE | 2018-09-08 14:16 | NM ---
EXAM DATE: 09/08/2018 1:57 PM EST AGE/SEX: 78 years / Male INDICATIONS: Edema. Low oxygen saturation. CLINICAL DATA: This is the patient's initial encounter. Patient reports that signs and symptoms have been present for 1 day and indicates a pain score of 0/10. MEDICAL/SURGICAL HISTORY: Diabetes mellitus type II. None. COMPARISON: [facility] – [place], CT CHEST W/O CONTRAST, 09/07/2018. . DOSE: 0.9 mCi Tc99m DTPA aerosol 8.7 mCi Tc99m MAA IV TECHNIQUE: Following five minutes of tidal breathing of DTPA aerosol, planar images of the lungs wer e performed in eight projections. The patient was then injected with MAA, and eight-view perfusion s can was performed. FINDINGS: Subsegmental to segmental ventilation/perfusion matching abnormality is identified in the left midlun g. CT of the chest demonstrates a corresponding consolidating infiltrate in this area. The perfusion scan is otherwise unremarkable with no other subsegmental, segmental or lobar perfusion abnormalities. CONCLUSION: 1. Matched perfusion ventilation defect in the left mid lung corresponding to an infiltrating proces s. 2. Low probability of pulmonary embolism. Electronically signed by: John Barrett MD 09/08/2018 2:14 PM EST
[2018-09-08] MEDS: Melatonin 5 MG Tablet PO PRN (20:31)
[2018-09-09] MEDS: Insulin NovoLOG Aspart Correctional Sugar Inj SQ SCH (06:36)
[2018-09-09] MEDS: glipiZIDE 5 MG Tablet PO SCH (06:46)
[2018-09-09 07:02] LABS: Hematocrit 26.2 % (39.0-51.0)
[2018-09-09 07:29] LABS: Calcium 8.5 mg/dL (8.5-10.1); Carbon Dioxide 28.8 meq/L (21.0-32.0); Potassium 4.2 meq/L (3.5-5.1)
--- NOTE | 2018-09-09 08:37 | P.PN ---
Subjective Interval history: Follow-up visit for pneumonia. Patient seen and examined sitting up in bed in no acute distress. He reports he slept well and states that he is voiding without any difficulties or dysuria. Denies any cough but does complain of shortness of breath this morning, states he refused his breathing treatment this morning. Denies any nausea, vomiting, or diarrhea. Did have a large bowel movement yesterday. Per nurse oxygen saturations have been stable, noted concentrated foul-smelling urine, UA ordered. Discussed with patient the importance of getting out of bed and mobility as well as incentive spirometry. Physical Exam Vital signs: Vital Signs 09/08/18 11:30 09/08/18 20:00 09/09/18 06:00 Temperature 98.8 F 97.8 F Pulse Rate 84 80 Respiratory Rate 18 Blood Pressure 142/64 H 137/64 Pulse Oximetry 90 L 92 L 93 L Intake & Output 09/08/18 09/09/18 09/09/18 18:59 06:59 18:59 Intake Total 1300 / 1300 340 / 340 240 / 240 Balance 1300 / 1300 340 / 340 240 / 240 Weight 102.6 kg Intake: IV 820 / 820 100 / 100 Maxipime Inj 2,000 MG In NS Inj 220 / 220 100 / 100 100 ML @ 200 mls/hr IV.SIG Q8H ZEKE Rx#:[id number] Vancomycin Inj 1,500 MG In NS 600 / 600 Inj 500 ML @ 250 mls/hr IV.SIG Q24H ZEKE Rx#:[id number] Oral 480 / 480 240 / 240 240 / 240 Other: Post Void Residual 400 Date of Last Bowel Movement 09/08/18 09/08/18 Narrative: GENERAL: Obese male resting in bed in no acute distress. SKIN: Warm and dry. HEAD: Atraumatic. Normocephalic. NECK: Trachea midline. CARDIOVASCULAR: Regular rate and rhythm, no murmurs auscultated RESPIRATORY: Upper lung sounds clear, left lower lobe faint fine crackles noted. No tachypnea noted, unlabored. On 6 L nasal cannula (patient is a mouth breather). GASTROINTESTINAL: Abdomen soft, non-tender, nondistended. +BS MUSCULOSKELETAL: Extremities without clubbing or cyanosis. Bilateral foot and leg trace edema, continues to improved. No obvious deformities. NEUROLOGICAL: Awake and alert. No obvious cranial nerve deficits. Motor grossly within normal limits. Normal speech. Results - Labs CBC & Chem 7: 09/09/18 06:46 09/09/18 06:46 Laboratory Results - last 24 hr 09/08/18 09/08/18 09/08/18 11:35 11:35 11:35 WBC 8.1 RBC 3.19 L Hgb 9.0 L Hct 25.9 L MCV 81.1 MCH 28.2 MCHC 34.7 RDW 15.8 Plt Count 151 D MPV 6.4 L Neut % (Auto) 83.1 H Lymph % (Auto) 6.[address] [place] % (Auto) 8.9 H Eos % (Auto) 0.9 Baso % (Auto) 0.3 Neut # (Auto) 6.7 Lymph # (Auto) 0.[address] [place] # (Auto) 0.7 Eos # (Auto) 0.1 Baso # (Auto) 0.0 WBC Differential . Differential Comment Auto diff final Sodium 136 Potassium 3.8 Chloride 99 Carbon Dioxide 29.4 Anion Gap 8 BUN 29 H Creatinine 1.70 H Estimated GFR 39 L POC Glucose Random Glucose 77 Calcium 8.2 L Procalcitonin 0.21 H 09/09/18 09/09/18 09/09/18 06:27 06:46 06:46 WBC RBC Hgb 9.0 L Hct 26.2 L MCV MCH MCHC RDW Plt Count MPV Neut % (Auto) Lymph % (Auto) [place] % (Auto) Eos % (Auto) Baso % (Auto) Neut # (Auto) Lymph # (Auto) [place] # (Auto) Eos # (Auto) Baso # (Auto) WBC Differential Differential Comment Sodium 137 Potassium 4.2 Chloride 100 Carbon Dioxide 28.8 Anion Gap 8 BUN 29 H Creatinine 1.65 H Estimated GFR 41 L POC Glucose 122 H Random Glucose 111 H Calcium 8.5 Procalcitonin Microbiology 09/08/18 16:10 Stool Stool Occult Blood (KEV) - Final Hemoccult negative - Imaging Impressions Pulmonary Perfusion Imaging 09/08/18 00:00 CONCLUSION: 1. Matched perfusion ventilation defect in the left mid lung corresponding to an infiltrating process. 2. Low probability of pulmonary embolism. Assessment and Plan - Assessment (1) Gout Code(s): M10.9 - Gout, unspecified Status: Acute (2) Hypertension Code(s): I10 - Essential (primary) hypertension Status: Acute (3) Mood disorder due to known physiological condition with depressive features Code(s): F06.31 - Mood disorder due to known physiological condition with depressive features Status: Acute - Plan Patient is a 78-year-old male with past medical history of gout, HTN, DM 2 who initially came into the hospital for suicidal ideation. Per review of records patient plan to shoot himself with a gun. He is now admitted to inpatient psychiatry unit for further evaluation. Consulted for assistance with urination. Lower extremity edema Possible heart failure with preserved EF -Patient had 2D echo completed 08/30 which showed normal LV size, moderate concentric LV hypertrophy, EF 50-55%, left atrial is mild to moderate dilated. Trace to mild MVR, moderate thickening of MV leaflets, moderate mitral annular calcification. Aortic valve stenosis present. -Patient was previously on Bumex however this was discontinued secondary to increase in renal function -BNP 223-->228, chest x-ray with cardiomegaly with positive fluid balance, patchy left lung zone airspace disease presumably atelectasis. -Continue IV Lasix, 20 mg daily x 3 days -Continue accurate I&O's, compression stockings, nasal cannula. -Lower extremity edema continues to improve. Hypoxia, multifactorial Healthcare associated pneumonia -Chest CT scan reviewed, suspected left hilar mass, contrast chest CT recommended when clinically feasible. Mild CHF with small bilateral pleural effusions. Left upper lobe pneumonia, focal atypical appearing infiltrate in right middle lobe. Dependent atelectasis both lower lobes, enlarged heart, coronary artery calcifications, mitral valve calcification, small hiatal hernia and cholelithiasis noted. -D-dimer 2.48, VQ scan with noted perfusion ventilation deficit in left mid lung corresponding with infiltrating process, low probability of PE. -CBC with no leukocytosis, procalcitonin elevated at 0.21, patient afebrile with oxygen saturation stable. -Continue empiric antibiotics for healthcare associated pneumonia, IV cefepime and vancomycin. Consider switching patient over to oral antibiotics in the next day or so. -Continue scheduled duo nebs, incentive spirometry and mobilization. Discussed with nursing staff, patient out of bed to chair for lunch. Difficulty urinating likely 2/2 undiagnosed BPH - Continue on Flomax and Proscar, and bethanechol. -Foul-smelling urine this morning, recheck UA -No reports of dysuria or hesitancy. Acute kidney injury on chronic kidney disease Followed by -Avoid nephrotoxins -Renal function stable, continue monitoring. Anemia, likely related to underlying kidney disease -H&H stable, Hemoccult negative DVT prophylaxis-ambulation Discussed Condition With: Patient and RN
[2018-09-09 09:47] LABS: Bacteria,Urine Occasional /hpf; Bilirubin,Urine Negative (Negative); Clarity,Urine Hazy (Clear); Color,Urine Yellow (Yellw/Straw); Glucose,Urine (UA) Negative (Negative); Leukocyte Esterase,Urine Negative (Negative); Nitrite,Urine Negative (Negative); Specific Gravity,Urine 1.017 (1.002-1.035); Squamous Epithelial Cell,Urine 1 /hpf (0-5)
[2018-09-09] MEDS: Famotidine 20 MG Tablet PO SCH ×2 (11:53→20:34)
[2018-09-09] MEDS: amLODIPine 5 MG Tablet PO SCH ×2 (11:53→20:34)
[2018-09-09] MEDS: OMNICEF 300 MG PO SCH ×2 (11:53→20:35)
[2018-09-09] MEDS: Finasteride 5 MG Tablet PO SCH (11:53)
[2018-09-09] MEDS: Heparin - SQ 10,000 UNITS/ML Vial SQ SCH ×2 (11:53→20:35)
[2018-09-09] MEDS: Gabapentin 100 MG Capsule PO SCH ×2 (11:53→20:34)
[2018-09-09] MEDS: Vancomycin Inj 1,500 MG in Sodium Chlor 0.9% Inj 500 ML IV.SIG SCH (11:54)
[2018-09-09] MEDS: Allopurinol 100 MG Tablet PO SCH (11:54)
[2018-09-09] MEDS: Sertraline 50 MG Tablet PO SCH (11:54)
--- NOTE | 2018-09-09 15:40 | P.PNPSY ---
Subjective Chief Complaint: gout Remarks: Patient seen for follow-up, chart reviewed. Discussion with nursing staff reported that patient patient currently on empiric antibiotics for pneumonia with improving renal function, UA pending. Patient was found sitting up in hospital bed with nasal cannula for O2 noted to be, cooperative. Patient states that he is feeling "good" stating that he is feeling a little better, reports having had a big bowel movement yesterday but feeling much better today. He denies any shortness of breath or any chest pain at this time and continues to want to feel better physically. Patient denies any depressed mood denies any suicide ideation at this time. Review of Systems All other systems reviewed negative except as stated in HPI Mental Status Examination Appearance: Appropriate Consciousness: Alert Orientation: x4 Motor Activity: Normal gait Speech: Unremarkable Language: Adequate Fund of Knowledge: Adequate Attention and Concentration: Adequate Memory: Unremarkable Mood: Appropriate Affect: Appropriate Thought Process & Associations: Intact Thought Content: Appropriate Hallucination Type: None Delusion Type: None Suicidal Ideation: No Suicidal Plan: No Suicidal Intention: No Homicidal Ideation: No Homicidal Plan: No Homicidal Intention: No Insight: Fair Judgment: Impulsive Assessment and Plan - Assessment (1) Mood disorder due to known physiological condition with depressive features Code(s): F06.31 - Mood disorder due to known physiological condition with depressive features Status: Acute - Plan Plan: Patient continues to have stable mood although irritable at times but redirectable. Patient denies any depressed mood and denies any suicide ideation at this time. We will continue recommendations as per prior medical team. Patient will continue to require health and rehab facility upon discharge as patient continues require medical stabilization prior to consideration in discharging back to his residence. We will continue current treatment. Continue to monitor mood and behavior. Discharge planning in progress. Justification for Continued Inpatient Stay: At risk of further decompensation at lower level care.
--- NOTE | 2018-09-09 16:01 | P.TTN ---
- Patient Problems Problems: 1. Discharge planning 2. Medication compliance 3. Knowledge deficit 4. Lack of coping skills - Progress Toward Goals Provider Present: Dr. Braden Jacinto Provider Input: 09/09/2018: Per doctor, no medication change, patient is being monitor or current dosage. 09/04/18 Patiennt awaiting a rehab. assessment prior discharge. 08/28/2018: Per doctor, patient will require Rehab prior to returning home;. 08/26/2018; patient's medications are being tirated to address patient's mood Nurse(s) Present: RN Nurse Input: 09/09/2018; patient is compliant with meals and medication. Pt. continues take meds, needs intermitten encouragement is eating meals but remains depressed. 08/28/2018: Patient is eating and taking his meds, depressed affect and refuse at times to engage. 08/26/2018; patient is eating and taking medication, he require coaching with mood Psychiatric Counselors Present: Arianna Villalobos [facility] Psychiatric Therapist Input: 09/09/2018; dc resource management planner continues to search for appropriate skill nursing homes. 09/04/18 Looking rehab facility or possible home discharge with home health. 08/28/2018: counselor will explore outside of [facility] for short term placement. 08/26/2018; counselor will work with DC resource management planner to help with appropriate short term Rehab placement prior to patient returning home Group Spec/RT/OT/WRIGHT Present: KYLE Paulson, Dex Austin, OT Group Spec/RT/OT/WRIGHT Input: 09/09/2018: patient does not participate with groups or activities. 09/04/18 Pt. does not participate. 08/28/2018: patient refuses to participate with groups or activities. 08/26/2018; patient has been resistant with participating with actvities and groups - Documentation Teaching Recipient: Patient
--- NOTE | 2018-09-09 16:03 | P.TTN ---
- Patient Problems Problems: 1. Discharge planning 2. Medication compliance 3. Knowledge deficit 4. Lack of coping skills - Progress Toward Goals Provider Present: Dr. Braden Jacinto Provider Input: 09/09/2018: Per doctor, no medication change, patient is being monitor or current dosage. 09/04/18 Patiennt awaiting a rehab. assessment prior discharge. 08/28/2018: Per doctor, patient will require Rehab prior to returning home;. 08/26/2018; patient's medications are being tirated to address patient's mood Nurse(s) Present: RN Nurse Input: 09/09/2018; patient is compliant with meals and medication. Pt. continues take meds, needs intermitten encouragement is eating meals but remains depressed. 08/28/2018: Patient is eating and taking his meds, depressed affect and refuse at times to engage. 08/26/2018; patient is eating and taking medication, he require coaching with mood Psychiatric Counselors Present: Arianna Villalobos [facility] Psychiatric Therapist Input: 09/09/2018; dc medical planner continues to search for appropriate skill nursing homes. 09/04/18 Looking rehab facility or possible home discharge with home health. 08/28/2018: counselor will explore outside of [facility] for short term placement. 08/26/2018; counselor will work with DC medical planner to help with appropriate short term Rehab placement prior to patient returning home Group Spec/RT/OT/WRIGHT Present: KYLE Paulson, Dex Austin, OT Group Spec/RT/OT/WRIGHT Input: 09/09/2018: patient does not participate with groups or activities. 09/04/18 Pt. does not participate. 08/28/2018: patient refuses to participate with groups or activities. 08/26/2018; patient has been resistant with participating with actvities and groups - Documentation Teaching Recipient: Patient
[2018-09-09] MEDS: Melatonin 5 MG Tablet PO PRN (20:34)
[2018-09-10] MEDS: Insulin NovoLOG Aspart Correctional Sugar Inj SQ SCH (06:21)
[2018-09-10] MEDS: glipiZIDE 5 MG Tablet PO SCH (06:22)
--- NOTE | 2018-09-10 08:21 | P.PNIM ---
Subjective Interval history: Follow-up pneumonia. Patient seen and examined, lying in bed comfortably in no apparent distress, he is on 6 L nasal cannula. His lung sounds are clear and he is breathing comfortably. No reports of any acute events overnight. Spoke to bedside RN who states that he is eating roughly 50% of his meals. Encouraged out of bed to chair and increase in activity as well as use of IS. Physical Exam Vital signs: Vital Signs 09/09/18 17:17 09/09/18 17:42 09/09/18 19:45 Temperature 98.2 F Pulse Rate 85 93 H 89 Respiratory Rate 20 18 17 Blood Pressure 136/71 Pulse Oximetry 96 97 09/10/18 06:00 Temperature 98.7 F Pulse Rate 79 Respiratory Rate 18 Blood Pressure 107/54 L Pulse Oximetry 90 L Intake & Output 09/09/18 09/10/18 09/10/18 18:59 06:59 18:59 Intake Total 960 / 960 545 / 545 Output Total 150 / 150 Balance 960 / 960 395 / 395 Intake: IV 100 / 100 Maxipime Inj 2,000 MG In NS Inj 100 / 100 100 ML @ 200 mls/hr IV.SIG Q12H ZEKE Rx#:[id number] Oral 960 / 960 445 / 445 Output: Urine 150 / 150 Other: # Voids 3 Date of Last Bowel Movement 09/08/18 Narrative: GENERAL: Obese male resting in bed in no acute distress. SKIN: Warm and dry. HEAD: Atraumatic. Normocephalic. NECK: Trachea midline. CARDIOVASCULAR: Regular rate and rhythm, no murmurs auscultated RESPIRATORY: Upper lung sounds clear, bilateral lower lobe diminished breath sounds. No tachypnea noted, unlabored. On 6 L nasal cannula (patient is a mouth breather). GASTROINTESTINAL: Abdomen soft, non-tender, nondistended. +BS MUSCULOSKELETAL: Extremities without clubbing or cyanosis. Bilateral foot and leg trace edema, continues to improved. No obvious deformities. NEUROLOGICAL: Awake and alert. No obvious cranial nerve deficits. Motor grossly within normal limits. Normal speech. Results - Labs CBC & Chem 7: 09/09/18 06:46 09/10/18 08:17 Laboratory Results - last 24 hr 09/09/18 09/10/18 08:38 05:37 POC Glucose 120 H Urine Color Yellow Urine Clarity Hazy H Urine pH 5.0 Ur Specific [place] 1.017 Urine Protein 100 H Urine Glucose (UA) Negative Urine Ketones Trace H Urine Occult Blood Small H Urine Nitrate Negative Urine Bilirubin Negative Urine Urobilinogen Less than 2 Ur Leukocyte Esterase Negative Urine RBC 3 Urine WBC 2 Ur Squamous Epith Cells 1 Urine Bacteria Occasional H Micro UA Comment Culture not ind Ur Microscopic Review Not Reportable Urine Culture Comments Culture not ind Assessment and Plan - Assessment (1) Gout Code(s): M10.9 - Gout, unspecified Status: Acute (2) Hypertension Code(s): I10 - Essential (primary) hypertension Status: Acute (3) Mood disorder due to known physiological condition with depressive features Code(s): F06.31 - Mood disorder due to known physiological condition with depressive features Status: Acute - Plan Patient is a 78-year-old male with past medical history of gout, HTN, DM 2 who initially came into the hospital for suicidal ideation. Per review of records patient plan to shoot himself with a gun. He is now admitted to inpatient psychiatry unit for further evaluation. Consulted for assistance with urination. Lower extremity edema Possible heart failure with preserved EF -Patient had 2D echo completed 08/30 which showed normal LV size, moderate concentric LV hypertrophy, EF 50-55%, left atrial is mild to moderate dilated. Trace to mild MVR, moderate thickening of MV leaflets, moderate mitral annular calcification. Aortic valve stenosis present. -Patient was previously on Bumex however this was discontinued secondary to increase in renal function -BNP 223-->228, chest x-ray with cardiomegaly with positive fluid balance, patchy left lung zone airspace disease presumably atelectasis. -Continue IV Lasix, 20 mg daily x 3 days, end date 09/11. -Continue accurate I&O's, compression stockings, nasal cannula. -Lower extremity edema continues to improve. Hypoxia, multifactorial Healthcare associated pneumonia -Chest CT scan reviewed, suspected left hilar mass, contrast chest CT recommended when clinically feasible. Mild CHF with small bilateral pleural effusions. Left upper lobe pneumonia, focal atypical appearing infiltrate in right middle lobe. Dependent atelectasis both lower lobes, enlarged heart, coronary artery calcifications, mitral valve calcification, small hiatal hernia and cholelithiasis noted. -D-dimer 2.48, VQ scan with noted perfusion ventilation deficit in left mid lung corresponding with infiltrating process, low probability of PE. -CBC with no leukocytosis, procalcitonin elevated at 0.21, patient afebrile with oxygen saturation stable. -Continue empiric antibiotics for healthcare associated pneumonia, IV cefepime and vancomycin. Consider switching patient over to oral antibiotics in the next day or so. -Continue scheduled duo nebs, incentive spirometry and mobilization. -Discussed with nursing staff, patient out of bed to chair for lunch. Difficulty urinating likely 2/2 undiagnosed BPH - Continue on Flomax and Proscar, and bethanechol. -Foul-smelling urine this morning, repeat UA negative. -No reports of dysuria or hesitancy. Acute kidney injury on chronic kidney disease -Followed by -Avoid nephrotoxins -Renal function stable, continue monitoring. Stabilized around 1.6. Anemia, likely related to underlying kidney disease -H&H stable, Hemoccult negative. DVT prophylaxis-ambulation
[2018-09-10] MEDS: Sertraline 50 MG Tablet PO SCH (10:09)
[2018-09-10] MEDS: Allopurinol 100 MG Tablet PO SCH (10:09)
[2018-09-10] MEDS: amLODIPine 5 MG Tablet PO SCH (10:09)
[2018-09-10] MEDS: Gabapentin 100 MG Capsule PO SCH (10:09)
[2018-09-10] MEDS: Famotidine 20 MG Tablet PO SCH (10:10)
[2018-09-10] MEDS: OMNICEF 300 MG PO SCH (10:11)
[2018-09-10] MEDS: Heparin - SQ 10,000 UNITS/ML Vial SQ SCH (10:16)
[2018-09-10] MEDS: Vancomycin Inj 1,500 MG in Sodium Chlor 0.9% Inj 500 ML IV.SIG SCH (11:22)
[2018-09-10] MEDS: Finasteride 5 MG Tablet PO SCH (11:54)
--- NOTE | 2018-09-10 16:06 | P.DSPSY ---
Psychiatry Discharge Summary Inpatient Psychiatric care?: Yes Advance Directives: Yes Mental Health Advance Directive: No Health Care Proxy: No - Admission Admission Date: August 17, 2018 00:37 - Admission Diagnosis (1) Mood disorder due to known physiological condition with depressive features Code(s): F06.31 - Mood disorder due to known physiological condition with depressive features Brief History: Patient is a 78-year-old male with a stated history of mood disorder. He is admitted to the hospital with suicidal ideation and plan to shoot himself with a gun. Today, patient admits to malingering for the purposes of getting medical treatment for his pain and his gout. Though, he is very circumstantial and a poor historian. Patient describes recent depressed mood. Says he has been he is feeling helpless and hopeless. He is complaining of generalized anxiety. Past psych: Patient used to see an outpatient psychiatrist named Dr. Arevalo. Patient claims that his psychiatrist told him to feign suicidal ideation to get treatment for mental health. Past medical: Gout. Medical medications include lisinopril, bumetanide, gabapentin, glipizide, Nitrostat, hydrocodone, aspirin, melatonin, fish oil, B12. Patient is asking for allopurinol, colchicine, indomethacin pain medication Past Famhx: "I do not know everybody ." Past Social: Patient has no family or children. Patient denies recent alcohol consumption but says he has a history of drinking Tobacco Use In Past 30 Days: No How Often Do You Have a Drink Containing Alcohol: Never Hospital Course: Patient is a 78-year-old male with a stated history of mood disorder admitted to the hospital with suicidal ideation and plan to shoot himself with a gun which patient admitted to making this statement for the purposes of getting medical treatment for his pain and his gout but was also noted with depressed symptoms. Patient was admitted to a locked, inpatient psychiatric unit. Appropriate precautions were in place throughout patient's hospital stay. Patient was seen and examined on the unit by psychiatry. Psychotropic medications were adjusted. There was no evidence of any suicidality or homicidality on the inpatient unit. Patient's mood improved with the benefit of psychopharmacological treatment and improvement of his pain from his gout; he had no behavioral disturbance since admission. Patient was noted to have reached stable mood, noted to participate and engage in treatment and interact with staff adequately. Patient noted to be future oriented with plans to continue treatment. Patient during admission had required continued medical management which continued to require further medical care due to exacerbation of medical illnesses. Patient had remained with stable mood and was planned for discharge to health and rehab facility once medically stable and cleared but continued to decline medically which he required transfer to the medical floor for further medical management. Patient continued to deny any suicidal ideation , was not noted to have any manic or psychotic symptoms and psychiatrically stable to continue medical management. Patient is psychiatrically clear continue medical management and no longer meets criteria for inpatient psychiatric level of care. Patient will be transferred to medical service and discharged from the psychiatric unit. - Discharge Discharge Date: 09/10/18 - Discharge Diagnosis (1) Mood disorder due to known physiological condition with depressive features Code(s): F06.31 - Mood disorder due to known physiological condition with depressive features Status: Acute Discharge Disposition: Discharge to medical service. - Discharge Instructions Discharge Diet: Heart Healthy Diet Activities You Can Perform: Weight Bearing As Tolerat - Discharge Time > 30 minutes Mental Status Examination Appearance: Appropriate Consciousness: Alert Orientation: x4 Motor Activity: Normal gait Speech: Unremarkable Language: Adequate Fund of Knowledge: Adequate Attention and Concentration: Adequate Memory: Unremarkable Mood: Appropriate Affect: Appropriate Thought Process & Associations: Intact Thought Content: Appropriate Hallucination Type: None Delusion Type: None Suicidal Ideation: No Suicidal Plan: No Suicidal Intention: No Homicidal Ideation: No Homicidal Plan: No Homicidal Intention: No Insight: Fair Judgment: Impulsive Discharge/Advance Care Plan - Results Vital Signs: Last Vital Signs Temp 98.7 F 09/10/18 06:00 Pulse 83 09/10/18 14:52 Resp 30 H 09/10/18 14:52 BP 107/54 L 09/10/18 06:00 Pulse Ox 94 L 09/10/18 15:14 Lab Results: Abnormal Lab Results 09/10/18 09/10/18 05:37 08:17 Creatinine 1.69 H Estimated GFR 39 L POC Glucose 120 H Laboratory Results Hemoglobin A1c 5.6 % (4.3-6.0) 08/18/18 07:50 Triglycerides 114 mg/dL (42-150) 08/18/18 07:50 Cholesterol 132 mg/dL (120-200) 08/18/18 07:50 LDL Cholesterol, Calc 73 mg/dL (0-99) 08/18/18 07:50 HDL Cholesterol 35.9 mg/dL (40.0-60.0) L 08/18/18 07:50 Urine Culture Comments Culture not ind 09/09/18 08:38 Summary of Procedures: none Imaging: ITS Impressions Chest X-Ray 09/06/18 00:00 CONCLUSION: 1. Cardiomegaly with positive fluid balance. 2. Patchy left lower lung zone airspace disease, presumably atelectasis. Chest CT 09/07/18 00:00 CONCLUSION: 1. Suspected left hilar mass. Contrast-enhanced chest CT recommended when clinically feasible. 2. Mild acute congestive heart failure including small bilateral pleural effusions. 3. Left upper lobe pneumonia. 4. Focal atypical appearing infiltrate of the right middle lobe. 5. Dependent atelectasis of both lower lobes. 6. Enlarged heart. 7. Coronary artery calcification. 8. Mild to mild calcification. 9. Small hiatal hernia. 10. Cholelithiasis. Pulmonary Perfusion Imaging 09/08/18 00:00 CONCLUSION: 1. Matched perfusion ventilation defect in the left mid lung corresponding to an infiltrating process. 2. Low probability of pulmonary embolism. Pending Results: None - Medications Number of antipsychotic medications at discharge: 0 - Discharge Care Plan Goals to Promote Your Health: * To prevent worsening of your condition and complications * To maintain your health at the optimal level Directions to Meet Your Goals: Take your medications as prescribed Follow your dietary instruction Follow activity as directed Keep your appointments as scheduled Take your immunizations and boosters as scheduled If your symptoms worsen call your PCP, if no PCP go to Urgent Care Center or Emergency Room For 28/05 questions related to your inpatient stay or results of tests pending at discharge, please contact Dr. Rodrigo Jacinto MD at Smoking is Dangerous to Your Health. Avoid second hand smoking
[2018-09-11] MEDS ORDERED: Pharmacy Ordered Lab Info OTHER ONE (09:45)
== END 2018-09-10 16:08 | disposition short-term general hospital (02) ==
LOC: H250 08-17 00:37 → H4EA 08-17 18:23 → H250 08-29 17:45 → H4EA 08-29 18:05 → H250 08-30 14:08 → H4EA 09-06 13:40
PROVIDERS: ADMIT Student in an Organized Health Care Education/Training Program; ATTEND Student in an Organized Health Care Education/Training Program

== ENCOUNTER 2018-09-10 16:12 | Inpatient (IN) ==
[2018-09-10] MEDS ORDERED: Bisacodyl 10 MG Supp RECTAL PRN (16:22)
[2018-09-10] MEDS ORDERED: Dextrose 50% in Water 50 ML Vial IV.PUSH PRN (16:25)
[2018-09-10] MEDS ORDERED: Vancomycin Consult Pharmacy OTHER PRN (16:27)
[2018-09-10] MEDS ORDERED: Sodium Chloride 0.9% 2 ML Flush PRN IV.FLUSH (16:34)
[2018-09-10] MEDS: MethylPREDNISolone Sod Succinate Inj 40 MG/ML Vial IV.PUSH SCH (16:49)
[2018-09-10] MEDS: Pantoprazole Inj 40 MG Vial IV.PUSH SCH (16:59)
[2018-09-10] MEDS ORDERED: Vancomycin Inj 1,000 MG in Sodium Chlor 0.9% Inj 250 ML IV.SIG SCH (17:00)
--- NOTE | 2018-09-10 17:21 | XR ---
EXAM DATE: 09/10/2018 5:16 PM EST AGE/SEX: 78 years / Male INDICATIONS: Shortness of breath. CLINICAL DATA: This is the patient's subsequent encounter. Patient reports that signs and symptoms h ave been present for 4 - 6 days and indicates a pain score of 0/10. MEDICAL/SURGICAL HISTORY: . Congestive heart failure. Diabetes. Hypertension. None. COMPARISON: [facility] [place], CHEST 1V SINGLE AP, 09/06/2018. . FINDINGS: There is diffuse bilateral interstitial and airspace disease throughout both lung rendon, left greate r than right. The heart size is diffusely enlarged. The infiltrates appear to be essentially new comp ared to the prior examination. The bony structures are stable. CONCLUSION: New diffuse bilateral interstitial and airspace disease throughout both lung rendon suggestive of pul monary edema. Electronically signed by: Tony De La Cruz MD 09/10/2018 5:19 PM EST
--- NOTE | 2018-09-10 17:27 | MH ---
cc: Santo Lewis MD DATE OF ADMISSION: 09/10/2018 HISTORY OF PRESENT ILLNESS: The patient is a 78-year-old male with a past medical history of questionable COPD, hypertension, diabetes mellitus, coronary artery disease and gout. He was admitted to inpatient medication psych on 08/17/2018 for suicidal ideation and acute kidney injury. He was found to have a creatinine of 1.64. During his hospital course, the patient was seen by hospitalist service. He had a chest x-ray on 08/19/2018. At that time it showed mild basilar opacity, probably subsegmental atelectasis with trace pleural fluid. Then, he had a CT scan of the chest on 09/07/2018 which showed suspected left hilar mass, mild congestive heart failure with small bilateral pleural effusions, left upper lobe pneumonia and focal atypical appearing infiltrate in the right middle lobe with dependent atelectasis of both lower lobes. He was started on broad-spectrum antibiotics. The patient had a V/Q scan on 09/08/2018 which showed a low probability for pulmonary embolism. Helicat was called for increased O2 requirements and the patient was subsequently transferred to [facility] [place] and Critical Care Medicine was consulted for critical care management. When seen, the patient was on partial nonrebreather mask with a saturation of 100%. Blood pressure 151/70 with a pulse of 89. The patient states that he quit smoking over 20 years ago. He does not use any inhalers or nebulizers at home. He denies any nausea, vomiting or abdominal pain. PAST MEDICAL HISTORY: Significant for hypertension, diabetes mellitus, questionable COPD, coronary artery disease, gout. ALLERGIES: NO KNOWN DRUG ALLERGIES. SOCIAL HISTORY: Ex-smoker, quit smoking over 20 years ago, nondrinker. FAMILY HISTORY: Noncontributing to present illness. MEDICATIONS: 1. Colace. 2. Pepcid. 3. Proscar. 4. Lasix. 5. Gabapentin. 6. Neurontin. 7. Glipizide. 8. Melatonin. 9. Flomax. 10. Cefepime. 11. Vancomycin. REVIEW OF SYSTEMS: As per HPI. The rest of review of systems is unremarkable. PHYSICAL EXAMINATION: GENERAL: A 78-year-old male lying in bed in mild respiratory distress. VITAL SIGNS: Temperature 98.7, pulse of 89, blood pressure 151/70, saturation 100% on partial nonrebreather. HEENT: Atraumatic, normocephalic. Pupils equally round and adequate accommodation. Extraocular muscles intact. Conjunctivae pink. Anicteric sclerae. Oral mucosa within normal. NECK: Supple. No JVD, adenopathy, or thyromegaly. Trachea in the midline. CARDIOVASCULAR: Regular rate and rhythm. Normal S1, S2. No murmurs, rubs or gallops noted. PULMONARY: Bilateral equal air entry with a few coarse breath sounds and scattered wheezing. ABDOMEN: Soft, obese, nontender. No distention. Positive bowel sounds. EXTREMITIES: No cyanosis, clubbing, +1 edema. NEUROLOGIC: No focal sensory deficit. LABORATORY DATA: From 09/08/2018: WBC 8.1, hemoglobin 9, hematocrit 25, platelet count 151. Sodium 137, potassium 4.2, chloride 100, CO2 of 28, BUN 29, creatinine 1.65-1.69, glucose 120. Hemoccult stool negative from 09/08/2018. RADIOGRAPHIC STUDIES: V/Q scan on 09/08/2018 showed low probability for PE. CT chest on 09/07/2018 showed suspected left hilar mass, mild congestive heart failure, left upper lobe pneumonia, atypical infiltrate in right middle lobe. IMPRESSION: 1. Acute hypoxemic respiratory insufficiency. 2. Left upper lobe pneumonia. 3. Questionable left hilar mass. 4. Acute kidney injury. 5. Anemia. 6. Coronary artery disease. 7. Diabetes mellitus. 8. Hypertension. 9. Chronic obstructive pulmonary disease. 10. Obesity. RECOMMENDATIONS: 1. Monitor neuro status closely and avoid any sedatives. 2. Wean down oxygen as tolerated and maintain saturations above 92%. 3. Bronchodilators in the form of DuoNeb every 4 hours plus every 2 hours p.r.n. for shortness of breath. Start Solu-Medrol 60 mg IV every 8 hours and Symbicort 160/4.5 two puffs b.i.d. 4. Check ABG. If there is any worsening in respiratory status or clinical condition, patient is agreeable for intubation and mechanical ventilation. 5. We will need a CT chest with contrast for further evaluation of the left hilar mass. We will hold for now given acute kidney injury. 6. Monitor renal function, I's and O's, and avoid nephrotoxins. We will diurese with Lasix 40 mg IV x 1. The patient had echocardiogram on 08/30/2018 which showed an EF of 50% to 55%. PA pressure 32 mmHg. 7. We will place on Cardizem 60 mg every 6 hours for blood pressure control. 8. Monitor renal function, I's and O's, and avoid nephrotoxins. 9. Keep n.p.o. for now until respiratory status improves and place on Protonix 40 mg IV daily for gastrointestinal prophylaxis. 10. Continue broad-spectrum antibiotics in the form of vancomycin and Zosyn. Monitor for signs of infection, which include fever and WBC. Check a sputum culture with Gram stain, strep pneumonia and legionella urinary antigen. 11. We will obtain a baseline chest x-ray now. 12. Monitor CBC. 13. Place on sliding scale insulin with Accu-Chek for glycemic control as the patient will be on intravenous steroids. 14. Gastrointestinal prophylaxis with Protonix 40 mg daily and deep venous thrombosis prophylaxis with sequential compression devices and heparin subcutaneously. MD ROSALBA Hair/marah/terence , 04:40 PM , 04:55 PM
[2018-09-10 17:33] LABS: Baso % (Auto) 0.6 % (0.0-2.0); Eos # (Auto) 0.1 th/mm3 (0.0-0.4); Eos % (Auto) 1.3 % (0.0-4.0); Hematocrit 26.2 % (39.0-51.0); Lymph # (Auto) 0.5 th/mm3 (1.0-4.8); Lymph % (Auto) 8.2 % (9.0-44.0); Mean Corpuscular HGB Conc 34.4 % (32.0-36.0); Mean Corpuscular Hemoglobin 28.6 pg (27.0-34.0); Mean Corpuscular Volume 83.2 fL (80.0-100.0); Mean Platelet Volume 6.5 fL (7.0-11.0); Mono # (Auto) 0.6 th/mm3 (0.0-0.9); Mono % (Auto) 8.8 % (0.0-8.0); Neut # (Auto) 5.3 th/mm3 (1.8-7.7); Neut % (Auto) 81.1 % (16.0-70.0); Platelet Count 177 th/mm3 (150-450); Red Blood Count 3.15 mil/mm3 (4.50-5.90); White Blood Count 6.5 th/mm3 (4.0-11.0)
[2018-09-10 17:50] LABS: Albumin 2.6 g/dL (3.4-5.0); Anion Gap 9 meq/L (5-15); Aspartate Aminotransferase 17 U/L (15-37); Blood Urea Nitrogen 32 mg/dL (7-18); Calcium 8.2 mg/dL (8.5-10.1); Carbon Dioxide 26.3 meq/L (21.0-32.0); Chloride 102 meq/L (98-107); Glomerular Filtration Rate 39 mL/min (>89); Glucose,Random 121 mg/dL (74-106); Magnesium 2.3 mg/dL (1.5-2.5); Potassium 3.9 meq/L (3.5-5.1); Sodium 137 meq/L (136-145)
[2018-09-10] MEDS: Azithromycin Inj 500 MG in Sodium Chlor 0.9% Inj 250 ML IV.SIG SCH (17:50)
[2018-09-10 17:51] LABS: Alanine Aminotransferase 18 U/L (12-78); Phosphorus 2.8 mg/dL (2.5-4.9)
[2018-09-10 17:53] LABS: Alkaline Phosphatase 65 U/L (45-117); Total Protein 6.9 g/dL (6.4-8.2)
[2018-09-10] MEDS: Piperacil/Tazo 3.375 GM Premix 50 ML IV.SIG SCH (18:56)
[2018-09-10] MEDS: dilTIAZem 60 MG Tablet PO SCH ×2 (19:55→21:00)
[2018-09-10] MEDS: Insulin NovoLIN Regular Correctional Sugar Inj SQ SCH (19:56)
[2018-09-10] MEDS ORDERED: Vancomycin Inj 1,500 MG in Sodium Chlor 0.9% Inj 500 ML IV.SIG SCH (20:00)
[2018-09-10] MEDS: Sodium Chloride 0.9% 2 ML Flush BID IV.FLUSH SCH (23:06)
[2018-09-10] MEDS: Heparin - SQ 10,000 UNITS/ML Vial SQ SCH (23:23)
[2018-09-11] MEDS: Insulin NovoLIN Regular Correctional Sugar Inj SQ SCH ×2 (00:56→07:00)
[2018-09-11] MEDS: MethylPREDNISolone Sod Succinate Inj 40 MG/ML Vial IV.PUSH SCH ×3 (00:57→21:14)
[2018-09-11] MEDS: Piperacil/Tazo 3.375 GM Premix 50 ML IV.SIG SCH ×3 (01:02→18:41)
[2018-09-11] MEDS ORDERED: Chlorhexidine Gluconate 2% 1 Pack (2 Cloths) TOPICAL PRN (04:00)
[2018-09-11 05:32] LABS: Baso % (Auto) 0.1 % (0.0-2.0); Hematocrit 25.4 % (39.0-51.0); Hemoglobin 8.8 gm/dL (13.0-17.0); Lymph # (Auto) 0.2 th/mm3 (1.0-4.8); Lymph % (Auto) 3.9 % (9.0-44.0); Mean Corpuscular HGB Conc 34.5 % (32.0-36.0); Mean Corpuscular Volume 81.2 fL (80.0-100.0); Mean Platelet Volume 7.2 fL (7.0-11.0); Mono # (Auto) 0.1 th/mm3 (0.0-0.9); Neut # (Auto) 5.5 th/mm3 (1.8-7.7); Platelet Count 176 th/mm3 (150-450); Red Blood Count 3.12 mil/mm3 (4.50-5.90); Red Cell Distribution Width 15.9 % (11.6-17.2); White Blood Count 5.8 th/mm3 (4.0-11.0)
[2018-09-11 05:43] LABS: INR 1.1 Ratio; Prothrombin Time 11.2 sec (9.8-11.6)
[2018-09-11 05:51] LABS: Albumin 2.6 g/dL (3.4-5.0); Anion Gap 11 meq/L (5-15); Aspartate Aminotransferase 20 U/L (15-37); Blood Urea Nitrogen 33 mg/dL (7-18); Calcium 8.5 mg/dL (8.5-10.1); Chloride 101 meq/L (98-107); Glomerular Filtration Rate 36 mL/min (>89); Glucose,Random 183 mg/dL (74-106); Magnesium 2.3 mg/dL (1.5-2.5); Potassium 4.3 meq/L (3.5-5.1); Sodium 138 meq/L (136-145)
[2018-09-11 05:52] LABS: Alanine Aminotransferase 17 U/L (12-78)
[2018-09-11 05:55] LABS: Alkaline Phosphatase 64 U/L (45-117); Phosphorus 3.4 mg/dL (2.5-4.9); Total Protein 7.1 g/dL (6.4-8.2)
--- NOTE | 2018-09-11 07:46 | P.PNCC ---
Subjective Subjective Remarks/Hospital Course: Patient is a 78-year-old male with a past medical history of ? COPD, hypertension, diabetes mellitus, coronary artery disease and gout. He was admitted to inpatient medication psych on 08/17/2018 for suicidal ideation and acute kidney injury. He was found to have a creatinine of 1.64. During his hospital course, the patient was seen by hospitalist service. He had a chest x- ray on 08/19/2018. At that time it showed mild basilar opacity, probably subsegmental atelectasis with trace pleural fluid. Then, he had a CT scan of the chest on 09/07/2018 which showed suspected left hilar mass, mild congestive heart failure with small bilateral pleural effusions, left upper lobe pneumonia and focal atypical appearing infiltrate in the right middle lobe with dependent atelectasis of both lower lobes. He was started on broad-spectrum antibiotics. The patient had a V/Q scan on 09/08/2018 which showed a low probability for pulmonary embolism. Helicat was called for increased O2 requirements and the patient was subsequently transferred to [facility] [place] and Critical Care Medicine was consulted for critical care management. When seen, the patient was on partial nonrebreather mask with a saturation of 100%. Blood pressure 151/70 with a pulse of 89. The patient states that he quit smoking over 20 years ago. He does not use any inhalers or nebulizers at home. He denies any nausea, vomiting or abdominal pain. 09/11 Patient is lying in bed in NAD. Afebrile. Objective Vital Signs / I&O: Vital Signs 09/10/18 16:50 09/10/18 20:06 09/11/18 03:02 Pulse Rate 98 H 86 Respiratory Rate 24 27 H Blood Pressure 147/80 H Pulse Oximetry 94 L 94 L Intake & Output 09/10/18 09/11/18 09/11/18 18:59 06:59 18:59 Intake Total 250 / 250 565 / 565 Balance 250 / 250 565 / 565 Weight 104.2 kg Intake: IV 250 / 250 565 / 565 Azithromycin Inj 500 MG In NS 250 / 250 Inj 250 ML @ 250 mls/hr IV.SIG Q24H ZEKE Rx#:[id number] Zosyn 3.375 GM Premix 50 ML @ 50 / 50 100 mls/hr IV.SIG Q8H ZEKE Rx#: [id number] Vancomycin Inj 1,500 MG In NS 515 / 515 Inj 500 ML @ 250 mls/hr IV.SIG Q24H ZEKE Rx#:[id number] Other: Weight On Admission 104.2 kg Result Diagrams: 09/11/18 03:50 09/11/18 03:50 Other Results: Laboratory Results - last 12 hr 09/10/18 09/11/18 09/11/18 16:25 00:32 03:50 WBC 5.8 RBC 3.12 L Hgb 8.8 L Hct 25.4 L MCV 81.2 MCH 28.0 MCHC 34.5 RDW 15.9 Plt Count 176 MPV 7.2 Neut % (Auto) 95.0 H Lymph % (Auto) 3.9 L [place] % (Auto) 1.0 Eos % (Auto) 0.0 Baso % (Auto) 0.1 Neut # (Auto) 5.5 Lymph # (Auto) 0.2 L [place] # (Auto) 0.1 Eos # (Auto) 0.0 Baso # (Auto) 0.0 WBC Differential . Differential Comment Auto diff final PT INR Sodium Potassium Chloride Carbon Dioxide Anion Gap BUN Creatinine Estimated GFR POC Glucose 226 H Random Glucose Calcium Phosphorus Magnesium Total Bilirubin AST ALT Alkaline Phosphatase Total Protein Albumin Nasal Screen MRSA (PCR) Not detected 09/11/18 09/11/18 03:50 03:50 WBC RBC Hgb Hct MCV MCH MCHC RDW Plt Count MPV Neut % (Auto) Lymph % (Auto) [place] % (Auto) Eos % (Auto) Baso % (Auto) Neut # (Auto) Lymph # (Auto) [place] # (Auto) Eos # (Auto) Baso # (Auto) WBC Differential Differential Comment PT 11.2 INR 1.1 Sodium 138 Potassium 4.3 Chloride 101 Carbon Dioxide 26.0 Anion Gap 11 BUN 33 H Creatinine 1.81 H Estimated GFR 36 L POC Glucose Random Glucose 183 H Calcium 8.5 Phosphorus 3.4 Magnesium 2.3 Total Bilirubin 0.7 AST 20 ALT 17 Alkaline Phosphatase 64 Total Protein 7.1 Albumin 2.6 L Nasal Screen MRSA (PCR) Imaging: Chest X-Ray 09/10/18 16:26 CONCLUSION: New diffuse bilateral interstitial and airspace disease throughout both lung rendon suggestive of pulmonary edema. Objective Remarks: GENERAL: Patient is 78 yo lying in bed in NAD SKIN: Warm and dry. HEAD: Normocephalic. EYES: No scleral icterus. No injection or drainage. NECK: Supple, trachea midline. No JVD or lymphadenopathy. CARDIOVASCULAR: Regular rate and rhythm without murmurs, gallops, or rubs. RESPIRATORY: Breath sounds equal bilaterally. Coarse BS GASTROINTESTINAL: Abdomen soft, non-tender, nondistended. MUSCULOSKELETAL: No cyanosis, or edema. Neuro: Awake and alert Assessment and Plan - Assessment and Plan Plan: 1. Acute hypoxemic respiratory insufficiency. 2. Left upper lobe pneumonia pr CT chest. 3. B/l pulm infiltrates 4. Acute kidney injury. 5. Anemia. 6. Coronary artery disease. 7. Diabetes mellitus. 8. Hypertension. 9. Chronic obstructive pulmonary disease. 10. Obesity. Plan Neuro: Monitor neuro status and avoid any sedatives. Pulm: Continue with oxygen and maintain sats>92%. Bronchodilators, Solu-Medrol 60 mg IVQ8, add Symbicort 160/4.5 two puffs b.i.d. Pulm eval. CV: on Cardizem 60 mg QID Monitor HR and BP keep MAP>65mmHg Echo on 08/30/2018 EF of 50% to 55%. PA pressure 32 mmHg. : Monitor renal function, I's and O's, and avoid nephrotoxins. Diurese with Lasix 40 mg IV x 1. Check renal US GI: on Protonix 40 mg IV daily for GI prophylaxis. Start cardiac diet ID: Continue abx(vancomycin,Azithromycin, Zosyn). Monitor for signs of infection( fever and WBC). strep pneumonia and legionella urinary antigen negative Heme: Monitor CBC. Endo: Increase SSI to medium scale with Accu-Chek for glycemic GI prophylaxis with Protonix 40 mg daily DVT prophylaxis with SCD and heparin subcu Level 2
[2018-09-11] MEDS ORDERED: Dextrose 50% in Water 50 ML Vial IV.PUSH PRN (07:54)
[2018-09-11] MEDS: Chlorhexidine Gluconate 2% 1 Pack (2 Cloths) TOPICAL SCH (08:30)
--- NOTE | 2018-09-11 09:12 | XR ---
EXAM DATE: 09/11/2018 9:09 AM EST AGE/SEX: 78 years / Male INDICATIONS: Shortness of breath. CLINICAL DATA: This is the patient's subsequent encounter. Patient reports that signs and symptoms h ave been present for 4 - 6 days and indicates a pain score of 0/10. MEDICAL/SURGICAL HISTORY: . Congestive heart failure. Diabetes. Hypertension. None. COMPARISON: [facility] [place], CHEST 1V SINGLE AP, 09/10/2018. . FINDINGS: Diffuse interstitial prominence with persistent small left pleural effusion and associated left lower lobe airspace consolidation. Improved aeration in the right lower lung zone. Cardiac silhouette is e nlarged. Remainder of the exam is unchanged. CONCLUSION: 1. Cardiomegaly with pulmonary vascular congestion. 2. Improved aeration in the right lower lung zone. 3. Persistent small left pleural effusion and associated left lower lobe airspace consolidation. Electronically signed by: Feliberto Aden MD 09/11/2018 9:11 AM EST
--- NOTE | 2018-09-11 10:22 | US ---
EXAM DATE: 09/11/2018 10:13 AM EST AGE/SEX: 78 years / Male INDICATIONS: Acute kidney injury. CLINICAL DATA: This is the patient's initial encounter. Patient reports that signs and symptoms have been present for 1 day and indicates a pain score of 0/10. MEDICAL/SURGICAL HISTORY: . Diabetes mellitus type II. None. COMPARISON: No prior exams available for comparison. MEASUREMENTS: Right Kidney:__10.1 x 6.1 x 5.3 cm Left Kidney:__9.4 x 5.7 x 5.0 cm FINDINGS: Right Kidney: Increased echotexture. No mass or hydronephrosis. Left Kidney: Increased echotexture. No mass or hydronephrosis. Bladder: Within normal limits given the degree of distension. Other: None. CONCLUSION: 1. Increased renal cortical echogenicity characteristic of chronic parenchymal disease. 2. No evidence of hydronephrosis. 3. No suspicious masses identified. Electronically signed by: John Barrett MD 09/11/2018 10:20 AM EST
[2018-09-11] MEDS: dilTIAZem 60 MG Tablet PO SCH ×4 (10:36→20:33)
[2018-09-11] MEDS: Pantoprazole Inj 40 MG Vial IV.PUSH SCH (10:37)
[2018-09-11] MEDS: Heparin - SQ 10,000 UNITS/ML Vial SQ SCH ×2 (10:37→20:33)
[2018-09-11] MEDS: Sodium Chloride 0.9% 2 ML Flush BID IV.FLUSH SCH ×2 (10:37→20:33)
[2018-09-11] MEDS: Insulin NovoLOG Aspart Correctional Sugar Inj SQ SCH ×3 (13:22→23:57)
[2018-09-11] MEDS: Budesonide-Formoterol 160/4.5 MCG 6 GM Inhaler INH SCH ×2 (13:22→20:33)
[2018-09-11] MEDS: Azithromycin Inj 500 MG in Sodium Chlor 0.9% Inj 250 ML IV.SIG SCH (18:41)
--- NOTE | 2018-09-11 19:00 | MB ---
cc: Shahida Garcia MD DATE: 09/11/2018 REASON FOR CONSULTATION: Pneumonia and COPD. HISTORY OF PRESENT ILLNESS: This is a 78-year-old white male with a history of diabetes mellitus, hypertension, coronary artery disease, COPD and gout, who was admitted to the Psych Unit on 08/17/2018 for acute kidney injury and suicidal ideation. The patient had elevated creatinine and subsequently had a workup for acute kidney injury and also had a chest x-ray in August, which showed some basilar infiltrates consistent with atelectasis and/or pleural fluid. The patient then was sent for a CT of the chest, which was done on 09/07/2018 and it showed a possible left hilar mass and mild congestive failure as well as bilateral infiltrates in the lung. He was placed on broad-spectrum antibiotic coverage. Also had a V/Q lung scan the following day, which was of low probability for PE. Subsequently, he was noted to have a low oxygen saturation and was emergently transferred to the intensive care unit. He was then seen by critical care, placed on a nonrebreather mask, was given diuretics and was placed on nebulized bronchodilators and continued on antibiotics. The patient was then weaned down from the nonrebreather mask to nasal cannula. He has been coughing, but does not bring up much sputum. He has no hemoptysis. He has had no fevers or chills. Most recent chest x-ray showed patchy bilateral pulmonary infiltrates and his oxygen saturation is up to 92% on 4 liters of oxygen. The patient is a poor historian and denies any chest pain at this time. Denies nausea, vomiting, but has had reflux symptoms and esophagitis. There is no history of GI bleed, but has had leg swelling. PAST MEDICAL HISTORY: Includes a history of diabetes mellitus type 2, history of hypertension and coronary artery disease, and gout. HABITS AND SOCIAL HISTORY: The patient smoked 1 pack per day for over 25 years, quit many years ago. No significant alcohol use. ALLERGIES: NONE LISTED. FAMILY HISTORY: Noncontributory. MEDICATIONS: Medication list was reviewed from the chart includes: 1. Pepcid. 2. Lasix. 3. Gabapentin. 4. Melatonin. 5. Antibiotics including vancomycin and cefepime. 6. Proscar. PHYSICAL EXAMINATION: GENERAL: This is an elderly man, obese, in no acute distress. VITAL SIGNS: Blood pressure 148/80, pulse is 84, respirations 20, temperature 97.6. HEENT: Head is normocephalic. Pupils are reactive. Arcus senilis was seen. Tongue was dry. Throat is injected. Nasal mucosa was clear. NECK: Supple with mild venous distention. Trachea midline. No thyroid enlargement or lymphadenopathy. CHEST: Distant breath sounds with coarse wheezes scattered bilaterally with occasional basal crackles. HEART: Sounds irregular, S1, S2 with no murmur. ABDOMEN: Soft, obese without masses. No organomegaly. Bowel sounds are active. EXTREMITIES: Edema 1+ with diminished peripheral pulses. Reflexes are 1+. No gross motor deficit. Cranial nerves are grossly intact. SKIN: Dry and cool. IMPRESSION: 1. Acute respiratory failure, resolving. 2. Bilateral pneumonia and possible atypical pneumonia. 3. Probable chronic obstructive pulmonary disease. 4. Diabetes mellitus type 2. 5. Hypertension. 6. Possible mild congestive heart failure. 7. Obesity. 8. Anemia. PLAN: The patient's O2 saturations are adequate and we could possibly place him on 4 liters of oxygen and wean down. He will be placed on DuoNeb solution with a nebulizer q.i.d. and continue with antibiotic coverage for possible aspiration and get a sputum for Gram stain and culture. We will get a followup chest x-ray in the morning. If he does desaturate at night, we could possibly place him on BiPAP 1205 cm FiO2 of 30%. The patient will be given EzPAP with the DuoNeb solution and diuretic therapy as necessary will be added. He will get a pulmonary function study when is clinically stable. We will follow the case with Dr. Haynes. Thank you for this consultation. MD NIKOLAY Hunter/marci , 05:20 PM , 05:36 PM
[2018-09-12] MEDS: Piperacil/Tazo 3.375 GM Premix 50 ML IV.SIG SCH ×3 (01:43→18:32)
[2018-09-12 04:16] LABS: Hematocrit 24.9 % (39.0-51.0); Hemoglobin 8.5 gm/dL (13.0-17.0); Lymph # (Auto) 0.3 th/mm3 (1.0-4.8); Lymph % (Auto) 2.8 % (9.0-44.0); Mean Corpuscular HGB Conc 34.2 % (32.0-36.0); Mean Corpuscular Hemoglobin 27.7 pg (27.0-34.0); Mean Corpuscular Volume 81.2 fL (80.0-100.0); Mean Platelet Volume 6.7 fL (7.0-11.0); Mono # (Auto) 0.3 th/mm3 (0.0-0.9); Mono % (Auto) 2.6 % (0.0-8.0); Neut # (Auto) 11.7 th/mm3 (1.8-7.7); Neut % (Auto) 94.6 % (16.0-70.0); Platelet Count 221 th/mm3 (150-450); Red Blood Count 3.06 mil/mm3 (4.50-5.90); Red Cell Distribution Width 16.3 % (11.6-17.2); White Blood Count 12.4 th/mm3 (4.0-11.0)
[2018-09-12] MEDS: Chlorhexidine Gluconate 2% 1 Pack (2 Cloths) TOPICAL SCH (04:27)
[2018-09-12 04:44] LABS: Albumin 2.7 g/dL (3.4-5.0); Anion Gap 13 meq/L (5-15); Aspartate Aminotransferase 17 U/L (15-37); Blood Urea Nitrogen 48 mg/dL (7-18); Calcium 8.5 mg/dL (8.5-10.1); Chloride 99 meq/L (98-107); Glomerular Filtration Rate 23 mL/min (>89); Glucose,Random 180 mg/dL (74-106); Magnesium 2.3 mg/dL (1.5-2.5); Sodium 135 meq/L (136-145)
[2018-09-12 04:47] LABS: Alanine Aminotransferase 17 U/L (12-78); Alkaline Phosphatase 61 U/L (45-117); Phosphorus 2.6 mg/dL (2.5-4.9); Total Protein 6.9 g/dL (6.4-8.2)
[2018-09-12] MEDS: Insulin NovoLOG Aspart Correctional Sugar Inj SQ SCH ×3 (05:55→18:32)
--- NOTE | 2018-09-12 08:57 | P.PNCC ---
Subjective Subjective Remarks/Hospital Course: Patient is a 78-year-old male with a past medical history of ? COPD, hypertension, diabetes mellitus, coronary artery disease and gout. He was admitted to inpatient medication psych on 08/17/2018 for suicidal ideation and acute kidney injury. He was found to have a creatinine of 1.64. During his hospital course, the patient was seen by hospitalist service. He had a chest x- ray on 08/19/2018. At that time it showed mild basilar opacity, probably subsegmental atelectasis with trace pleural fluid. Then, he had a CT scan of the chest on 09/07/2018 which showed suspected left hilar mass, mild congestive heart failure with small bilateral pleural effusions, left upper lobe pneumonia and focal atypical appearing infiltrate in the right middle lobe with dependent atelectasis of both lower lobes. He was started on broad-spectrum antibiotics. The patient had a V/Q scan on 09/08/2018 which showed a low probability for pulmonary embolism. Helicat was called for increased O2 requirements and the patient was subsequently transferred to [facility] [place] and Critical Care Medicine was consulted for critical care management. When seen, the patient was on partial nonrebreather mask with a saturation of 100%. Blood pressure 151/70 with a pulse of 89. The patient states that he quit smoking over 20 years ago. He does not use any inhalers or nebulizers at home. He denies any nausea, vomiting or abdominal pain. 09/11 Patient is lying in bed in NAD. Afebrile. 09/12 Patient is lying in bed in NAD. On 4L oxygen. Afebrile. Renal function worse today with Cr: 2.70 from 1.81 Objective Vital Signs / I&O: Vital Signs 09/11/18 09:00 09/11/18 10:00 09/11/18 11:00 Temperature 98 F Pulse Rate 92 H 94 H 91 H Respiratory Rate 20 25 H 28 H Blood Pressure 144/74 H 135/71 137/73 Pulse Oximetry 96 93 L 94 L 09/11/18 11:31 09/11/18 12:00 09/11/18 13:00 Temperature Pulse Rate 90 92 H 90 Respiratory Rate 18 16 25 H Blood Pressure 127/59 L 133/60 Pulse Oximetry 94 L 94 L 09/11/18 14:00 09/11/18 15:00 09/11/18 16:00 Temperature Pulse Rate 90 81 80 Respiratory Rate 24 19 22 Blood Pressure 119/63 115/55 L 143/75 H Pulse Oximetry 93 L 96 95 09/11/18 17:00 09/11/18 18:00 09/11/18 18:01 Temperature Pulse Rate 83 82 82 Respiratory Rate 22 20 21 Blood Pressure 127/55 L 106/46 L Pulse Oximetry 95 93 L 93 L 09/11/18 19:43 09/11/18 20:00 09/11/18 22:00 Temperature 97.9 F Pulse Rate 83 85 80 Respiratory Rate 16 24 Blood Pressure 139/62 Pulse Oximetry 93 L 93 L 09/12/18 00:00 09/12/18 00:26 09/12/18 01:20 Temperature 98.3 F Pulse Rate 78 81 86 Respiratory Rate 20 17 Blood Pressure 119/61 Pulse Oximetry 95 09/12/18 04:00 09/12/18 04:50 09/12/18 06:00 Temperature 98.5 F Pulse Rate 82 86 88 Respiratory Rate 20 19 Blood Pressure 104/57 L Pulse Oximetry 95 09/12/18 07:30 Temperature Pulse Rate 90 Respiratory Rate 18 Blood Pressure Pulse Oximetry 95 Intake & Output 09/11/18 09/12/18 09/12/18 18:59 06:59 18:59 Intake Total 50 / 50 710 / 710 Output Total 500 / 500 500 / 500 Balance -450 / -450 210 / 210 Weight 104 kg Intake: IV 50 / 50 350 / 350 Azithromycin Inj 500 MG In NS 250 / 250 Inj 250 ML @ 250 mls/hr IV.SIG Q24H ZEKE Rx#:[id number] Zosyn 3.375 GM Premix 50 ML @ 50 / 50 100 / 100 100 mls/hr IV.SIG Q8H ZEKE Rx#: [id number] Oral 360 / 360 Output: Urine 500 / 500 500 / 500 Other: # Voids 1 Result Diagrams: 09/12/18 03:17 09/12/18 03:17 Other Results: Laboratory Results - last 12 hr 09/11/18 09/12/18 09/12/18 23:47 03:17 03:17 WBC 12.4 H D RBC 3.06 L Hgb 8.5 L Hct 24.9 L MCV 81.2 MCH 27.7 MCHC 34.2 RDW 16.3 Plt Count 221 MPV 6.7 L Neut % (Auto) 94.6 H Lymph % (Auto) 2.8 L [place] % (Auto) 2.6 Eos % (Auto) 0.0 Baso % (Auto) 0.0 Neut # (Auto) 11.7 H Lymph # (Auto) 0.3 L [place] # (Auto) 0.3 Eos # (Auto) 0.0 Baso # (Auto) 0.0 WBC Differential . Differential Comment Auto diff final Sodium 135 L Potassium 4.0 Chloride 99 Carbon Dioxide 23.0 Anion Gap 13 BUN 48 H Creatinine 2.70 H Estimated GFR 23 L POC Glucose 290 H Random Glucose 180 H Calcium 8.5 Phosphorus 2.6 Magnesium 2.3 Total Bilirubin 0.6 AST 17 ALT 17 Alkaline Phosphatase 61 Total Protein 6.9 Albumin 2.7 L Random Vancomycin 31.0 09/12/18 05:49 WBC RBC Hgb Hct MCV MCH MCHC RDW Plt Count MPV Neut % (Auto) Lymph % (Auto) [place] % (Auto) Eos % (Auto) Baso % (Auto) Neut # (Auto) Lymph # (Auto) [place] # (Auto) Eos # (Auto) Baso # (Auto) WBC Differential Differential Comment Sodium Potassium Chloride Carbon Dioxide Anion Gap BUN Creatinine Estimated GFR POC Glucose 213 H Random Glucose Calcium Phosphorus Magnesium Total Bilirubin AST ALT Alkaline Phosphatase Total Protein Albumin Random Vancomycin Imaging: Abdomen/Bladder Ultrasound 09/11/18 00:00 CONCLUSION: 1. Increased renal cortical echogenicity characteristic of chronic parenchymal disease. 2. No evidence of hydronephrosis. 3. No suspicious masses identified. Chest X-Ray 09/11/18 07:41 CONCLUSION: 1. Cardiomegaly with pulmonary vascular congestion. 2. Improved aeration in the right lower lung zone. 3. Persistent small left pleural effusion and associated left lower lobe airspace consolidation. Objective Remarks: GENERAL: Patient is 78 yo lying in bed in NAD SKIN: Warm and dry. HEAD: Normocephalic. EYES: No scleral icterus. No injection or drainage. NECK: Supple, trachea midline. No JVD or lymphadenopathy. CARDIOVASCULAR: Regular rate and rhythm without murmurs, gallops, or rubs. RESPIRATORY: Breath sounds equal bilaterally. Coarse BS GASTROINTESTINAL: Abdomen soft, non-tender, nondistended. MUSCULOSKELETAL: No cyanosis, or edema. Neuro: Awake and alert Assessment and Plan - Assessment and Plan Plan: 1. Acute hypoxemic respiratory insufficiency. 2. Left upper lobe pneumonia pr CT chest. 3. B/l pulm infiltrates 4. Acute kidney injury. 5. Anemia. 6. Coronary artery disease. 7. Diabetes mellitus. 8. Hypertension. 9. Chronic obstructive pulmonary disease. 10. Obesity. Plan Neuro: Monitor neuro status and avoid any sedatives. Consult Psych-(suicidal ideation) Pulm: Continue with oxygen and maintain sats>92%. Bronchodilators, Solu-Medrol 60 mg IVQ8, add Symbicort 160/4.5 two puffs b.i.d. Pulm is following-Dr. Garcia CXR 09/11: Improved aeration in the right lower lung zone. small left pleural effusion and associated left lower lobe airspace consolidation. Check CXR CV: on Cardizem 60 mg QID Monitor HR and BP keep MAP>65mmHg Echo on 08/30/2018 EF of 50% to 55%. PA pressure 32 mmHg. : Monitor renal function, I's and O's, and avoid nephrotoxins. Renal US: No masses, no hydronephrosis Renal function worse today with Cr: 2.[address] on NS@75ml/hr, renal eval. GI: on Protonix 40 mg IV daily for GI prophylaxis. On cardiac diet ID: Continue abx(vancomycin,Azithromycin, Zosyn). d/c vanco Monitor for signs of infection( fever and WBC). strep pneumonia and legionella urinary antigen negative Heme: Monitor CBC. Endo: SSI to medium scale with Accu-Chek for glycemic GI prophylaxis with Protonix 40 mg daily DVT prophylaxis with SCD and heparin subcu Level 2
--- NOTE | 2018-09-12 09:19 | XR ---
EXAM DATE: 09/12/2018 9:03 AM EST AGE/SEX: 78 years / Male INDICATIONS: Short of breath CLINICAL DATA: This is the patient's subsequent encounter. Patient reports that signs and symptoms h ave been present for 2 days and indicates a pain score of 0/10. MEDICAL/SURGICAL HISTORY: . Congestive heart failure. Diabetes. Hypertension None. [place] [facility] [place] 1[place] S[place]/11/2018. . FINDINGS: Slight cardiomegaly seen. There is mild prominence of the interstitial markings without focal consoli dation. CONCLUSION: No appreciable change. Electronically signed by: Bo Bright MD 09/12/2018 9:18 AM EST
[2018-09-12] MEDS: MethylPREDNISolone Sod Succinate Inj 40 MG/ML Vial IV.PUSH SCH ×2 (09:25→21:58)
[2018-09-12] MEDS: Heparin - SQ 10,000 UNITS/ML Vial SQ SCH ×2 (09:25→20:45)
[2018-09-12] MEDS: Pantoprazole Inj 40 MG Vial IV.PUSH SCH (09:25)
[2018-09-12] MEDS: Budesonide-Formoterol 160/4.5 MCG 6 GM Inhaler INH SCH ×2 (09:25→20:44)
[2018-09-12] MEDS: Sodium Chloride 0.9% 2 ML Flush BID IV.FLUSH SCH ×2 (09:26→20:44)
[2018-09-12] MEDS: Sod Chloride 0.9% Inj 1,000 ML IV.CONT SCH (09:26)
[2018-09-12] MEDS: dilTIAZem 60 MG Tablet PO SCH ×4 (09:26→20:44)
--- NOTE | 2018-09-12 13:47 | P.PNPSY ---
Subjective Remarks: DC Summary from psychiatry 09/10/2018: Patient is a 78-year-old male with a stated history of mood disorder admitted to the hospital with suicidal ideation and plan to shoot himself with a gun which patient admitted to making this statement for the purposes of getting medical treatment for his pain and his gout but was also noted with depressed symptoms. Patient was admitted to a locked, inpatient psychiatric unit. Appropriate precautions were in place throughout patient's hospital stay. Patient was seen and examined on the unit by psychiatry. Psychotropic medications were adjusted. There was no evidence of any suicidality or homicidality on the inpatient unit. Patient's mood improved with the benefit of psychopharmacological treatment and improvement of his pain from his gout; he had no behavioral disturbance since admission. Patient was noted to have reached stable mood, noted to participate and engage in treatment and interact with staff adequately. Patient noted to be future oriented with plans to continue treatment. Patient during admission had required continued medical management which continued to require further medical care due to exacerbation of medical illnesses. Patient had remained with stable mood and was planned for discharge to health and rehab facility once medically stable and cleared but continued to decline medically which he required transfer to the medical floor for further medical management. Patient continued to deny any suicidal ideation, was not noted to have any manic or psychotic symptoms and psychiatrically stable to continue medical management. Patient is psychiatrically clear continue medical management and no longer meets criteria for inpatient psychiatric level of care. Patient will be transferred to medical service and discharged from the psychiatric unit. The patient was seen today for psychiatric reevaluation, as request of critical care doctors, for the concern of potential delusional thinking. On the psychiatric evaluation the patient is calm, cooperative, stated that he feels much better now. He does report that he is concerned about germs in his room, he says that he has pneumonia, and he says that he got the pneumonia here in the hospital "in the hospital have a lot of germs". The patient is fully oriented x3, with no attention deficit, no fluctuation of consciousness, no agitation, no aggressive behavior, he is logical, coherent and relevant. Reports to be in a good mood, denies anxiety, denies anhedonia, denies hopelessness, helplessness, he denies suicidal and homicidal ideation. No ideas of reference, no increased paranoia, no loosening of associations are present at the moment. Patient is motivated to continue medical recommendations and to take medications. He does report to sleep poorly at night, last night he did not sleep more than 2 hours. Patient is requesting medication to help with sleep. Mental Status Examination Appearance: Appropriate Consciousness: Alert Orientation: x4 Motor Activity: Normal gait Speech: Unremarkable Language: Adequate Fund of Knowledge: Adequate Attention and Concentration: Adequate Memory: Unremarkable Mood: Appropriate Affect: Appropriate Thought Process & Associations: Intact Thought Content: Appropriate Hallucination Type: None Delusion Type: None Suicidal Ideation: No Suicidal Plan: No Suicidal Intention: No Homicidal Ideation: No Homicidal Plan: No Homicidal Intention: No Insight: Adequate Judgment: Adequate Assessment and Plan - Assessment (1) Mood disorder due to known physiological condition with depressive features Code(s): F06.31 - Mood disorder due to known physiological condition with depressive features Status: Acute - Plan Plan: On psychiatric evaluation today the patient does not present any neuropsychiatric symptoms or require an immediate psychiatric intervention. The patient denies symptoms of depression, denies anxiety, denies osmani and psychosis. He denies suicidal and homicidal ideation, he denies visual and auditory hallucinations. The patient does have some preoccupations about germs that do not have a delusional component. Patient also reports having insomnia. I will add Seroquel 25 mg at bedtime to help with insomnia. No admission is indicated. Justification for Continued Inpatient Stay: No admission indicated.
--- NOTE | 2018-09-12 14:49 | P.CONNP ---
History of Present Illness Service: Nephrology Consult date: 09/12/18 Requesting Physician: Santo Lewis Reason for Consult: Acute renal failure Primary Care Provider: UNKNOWN History of Present Illness: Patient is a 78-year-old white male with history of diabetes, COPD, hypertension who had a creatinine of 1.64, he was admitted to [facility] for suicidal ideation and then transferred over here as he is not short of breath treated for pneumonia, patient was on vancomycin creatinine has gone up to 2.7 vancomycin level is 31 patient is passing small amount of urine. Review of Systems Constitutional: Reports lack of energy Eyes: Denies blind spots, Denies blurry vision, Denies bulging eyes, Denies change in vision, Denies double vision, Denies discharge, Denies dry eyes, Denies floaters, Denies irritation, Denies itchy eyes, Denies loss of vision, Denies pain, Denies requires corrective lenses, Denies sensitivity to light, Denies other Ears, Nose, Mouth, and Throat: Denies abnormal hearing, Denies bleeding gums, Denies bad breath, Denies change in voice, Denies dental pain, Denies difficulty swallowing, Denies dizziness, Denies dry mouth, Denies ear discharge , Denies ear pain, Denies facial pain, Denies headache(s), Denies hearing loss, Denies hoarseness, Denies lip swelling, Denies nosebleed, Denies mouth lesions, Denies mouth pain, Denies nasal congestion, Denies nasal discharge, Denies nasal obstruction, Denies nasal trauma, Denies neck lump, Denies neck pain, Denies nose pain, Denies pain with swallowing, Denies poor balance, Denies post nasal drip, Denies ringing in the ears, Denies sinus pain, Denies sinus pressure , Denies sore throat, Denies throat swelling, Denies tongue swelling, Denies other Cardiovascular: Reports foot swelling, Reports shortness of breath with activity Respiratory: Reports cough, Reports shortness of breath, Reports shortness of breath with activity Gastrointestinal: Reports constipation Genitourinary: Reports urinary frequency (Lower) Musculoskeletal: Reports limited joint movement Skin/Breast: Reports other Neurologic: Reports weakness Psychiatric: Reports thoughts of hurting/killing yourself Endocrine: Reports other Hematologic/Lymphatic: Denies easy bleeding, Denies easy bruising, Denies enlarged lymph nodes, Denies other PMFSH - History History Provided By: Patient - Medical History Medical History: Medical History (Last Reviewed 09/12/18 @ 15:33 by Krystle Krueger MD) Diabetes Gout Heart disease Hypokalemia - Family History Family History: Family History (Last Updated 09/12/18 @ 15:33 by Krystle Krueger MD) Other Family history non-contributory - Social History I have reviewed the patient's Social History: Yes - Tobacco History Second Hand Smoke Exposure: No Tobacco Use In Past 30 Days: No Smoking Status: Former smoker Tobacco Type: Cigarettes, Cigars - Alcohol History How Often Do You Have a Drink Containing Alcohol: Never - Substance Use History Substance History: No History of Abuse - Immunization History Tetanus Immunization: >5 Years Hx Influenza Vaccine This Season: Yes Medications and Allergies Active Medications: Active Medications Al Hydroxide/Mg Hydroxide (Milk Of Tavon Liq) 30 ml PO Q12H PRN PRN Reason: Mild Constipation Albuterol (Duoneb Neb (Mar[facility])) 1 ampul NEB Q4HR NEB [facility] Last Admin: 09/12/18 11:00 Dose: 1 ampul Albuterol (Duoneb Neb (Prn)) 1 ampul NEB Q2HR NEB PRN PRN Reason: WHEEZING Bisacodyl (Dulcolax Supp) 10 mg RECTAL DAILY PRN PRN Reason: SEVERE CONSITIPATION Budesonide/Formoterol Fumarate (Symbicort 160/4.5 Mcg Inh) 2 puff INH BID [facility] Last Admin: 09/12/18 09:25 Dose: 2 puff Chlorhexidine Gluconate (Chlorhexidine 2% Cloth) 3 pack TOPICAL DAILY@0400 [facility] Stop: 09/16/18 03:59 Last Admin: 09/12/18 04:27 Dose: 3 pack Chlorhexidine Gluconate (Chlorhexidine 2% Cloth) 3 pack TOPICAL DAILY@0400 PRN PRN Reason: Extra cloth needed Stop: 09/16/18 03:59 Dextrose (D50w Vial) 50 ml IV.PUSH UNSCH PRN PRN Reason: PER HYPOGLYCEMIA PROTOCOL Diltiazem HCl (Cardizem) 60 mg PO QID [facility] Last Admin: 09/12/18 12:56 Dose: 60 mg Glucagon (Glucagon Inj) 1 mg OTHER UNSCH PRN PRN Reason: for Hypoglycemia Protocol Heparin Sodium (Porcine) (Heparin Inj) 5,000 units SQ Q12H [facility] Last Admin: 09/12/18 09:25 Dose: 5,000 units Azithromycin 500 mg/ Sodium (Chloride) 250 mls @ 250 mls/hr IV.SIG Q24H [facility] Last Infusion: 09/11/18 19:51 Dose: Infused Piperacillin/Tazobactam/Dextrose (Zosyn 3.375 Gm Premix) 50 mls @ 100 mls/hr IV.SIG Q8H [facility] Last Infusion: 09/12/18 09:57 Dose: Infused Vancomycin HCl 1,500 mg/ (Sodium Chloride) 515 mls @ 250 mls/hr IV.SIG Q24H [facility] Last Infusion: 09/11/18 00:58 Dose: Infused Sodium Chloride (Ns Inj) 1,000 mls @ 75 mls/hr IV.CONT .[id number] [facility] Last Admin: 09/12/18 09:26 Dose: 75 mls/hr Insulin Aspart (Novolog Insulin Correctional Sugar Inj) 0 unit SQ Q6HR [facility]; Protocol Last Admin: 09/12/18 12:56 Dose: 10 unit Lactulose (Lactulose Liq) 30 ml PO DAILY PRN PRN Reason: SEVERE CONSITIPATION Methylprednisolone Sodium Succinate (Solumedrol Inj) 40 mg IV.PUSH Q12H [facility] Last Admin: 09/12/18 09:25 Dose: 40 mg Miscellaneous Information ([facility] Ordered Lab Info) 0 each OTHER ONCE ONE Stop: 09/13/18 19:46 Pantoprazole Sodium (Protonix Inj) 40 mg IV.PUSH DAILY [facility] Last Admin: 09/12/18 09:25 Dose: 40 mg Pharmacy Profile Note (Vancomycin Consult Pharmacy) 1 each OTHER UNSCH PRN PRN Reason: Pharmacy to dose Quetiapine Fumarate (Seroquel) 25 mg PO HS [facility] Sennosides (Senokot) 17.2 mg PO Q12H PRN PRN Reason: Moderate Constipation Sodium Chloride (Ns Flush) 2 ml IV.FLUSH BID [facility] Last Admin: 09/12/18 09:26 Dose: 2 ml Sodium Chloride (Ns Flush) 2 ml IV.FLUSH PRN PRN PRN Reason: FLUSH AFTER USING IV ACCESS Allergies Allergy/AdvReac Type Severity Reaction Status Date / Time No Known Allergies Allergy Unverified 08/17/18 00:48 Home Medications Medication Instructions Recorded Confirmed Type amoxicillin-pot clavulanate 1 tab PO Q12H 08/17/18 08/17/18 History [Augmentin] cefdinir 300 mg PO Q12H 08/17/18 08/17/18 History doxycycline hyclate [Vibramycin] 100 mg PO BID 08/17/18 08/17/18 History hydrocodone-acetaminophen 1 tab PO BID PRN 08/17/18 08/17/18 History insulin glargine [Lantus U-100 7 unit SUBCUT DAILY 08/17/18 08/17/18 History Insulin] lisinopril 40 mg PO BID 08/20/18 08/20/18 History Exam Vital signs: Vital Signs 09/11/18 15:00 09/11/18 16:00 09/11/18 17:00 Temperature Pulse Rate 81 80 83 Respiratory Rate 19 22 22 Blood Pressure 115/55 L 143/75 H 127/55 L Pulse Oximetry 96 95 95 09/11/18 18:00 09/11/18 18:01 09/11/18 19:43 Temperature Pulse Rate 82 82 83 Respiratory Rate 20 21 16 Blood Pressure 106/46 L Pulse Oximetry 93 L 93 L 93 L 09/11/18 20:00 09/11/18 22:00 09/12/18 00:00 Temperature 97.9 F 98.3 F Pulse Rate 85 80 78 Respiratory Rate 24 20 Blood Pressure 139/62 119/61 Pulse Oximetry 93 L 95 09/12/18 00:26 09/12/18 01:20 09/12/18 04:00 Temperature 98.5 F Pulse Rate 81 86 82 Respiratory Rate 17 20 Blood Pressure 104/57 L Pulse Oximetry 95 09/12/18 04:50 09/12/18 06:00 09/12/18 07:30 Temperature Pulse Rate 86 88 90 Respiratory Rate 19 18 Blood Pressure Pulse Oximetry 95 09/12/18 08:00 09/12/18 09:00 09/12/18 10:00 Temperature 98.7 F Pulse Rate 93 H 92 H 94 H Respiratory Rate 25 H 22 36 H Blood Pressure Pulse Oximetry 94 L 95 92 L 09/12/18 11:00 09/12/18 11:01 09/12/18 12:00 Temperature Pulse Rate 92 H 94 H 100 H Respiratory Rate 25 H 18 25 H Blood Pressure Pulse Oximetry 95 94 L 11/08/18 12:01 Temperature Pulse Rate 100 H Respiratory Rate 25 H Blood Pressure 130/62 Pulse Oximetry 94 L Intake & Output 09/11/18 09/12/18 09/12/18 18:59 06:59 18:59 Intake Total 50 / 50 710 / 710 50 / 50 Output Total 500 / 500 500 / 500 Balance -450 / -450 210 / 210 50 / 50 Weight 104 kg Intake: IV 50 / 50 350 / 350 50 / 50 Azithromycin Inj 500 MG In NS 250 / 250 Inj 250 ML @ 250 mls/hr IV.SIG Q24H [facility] Rx#:[id number] Zosyn 3.375 GM Premix 50 ML @ 50 / 50 100 / 100 50 / 50 100 mls/hr IV.SIG Q8H [facility] Rx#: [id number] Oral 360 / 360 Output: Urine 500 / 500 500 / 500 Other: # Voids 1 Narrative: GENERAL: Well-nourished, well-developed patient. SKIN: Warm and dry. HEAD: Normocephalic. EYES: No scleral icterus. No injection or drainage. NECK: Supple, trachea midline. No JVD or lymphadenopathy. CARDIOVASCULAR: Regular rate and rhythm without murmurs, gallops, or rubs. RESPIRATORY: Breath sounds diminished at bases. GASTROINTESTINAL: Abdomen soft, non-tender, nondistended. EXTREMITIES: 1+ edema NEUROLOGICAL: Awake, alert, and oriented x 3. Non-focal. Results - Lab Results 09/12/18 03:17 09/12/18 03:17 Most recent lab results Calcium 8.5 mg/dL (8.5-10.1) 09/12/18 03:17 Phosphorus 2.6 mg/dL (2.5-4.9) 09/12/18 03:17 Magnesium 2.3 mg/dL (1.5-2.5) 09/12/18 03:17 Assessment and Plan - Assessment (1) Acute renal failure Code(s): N17.9 - Acute kidney failure, unspecified Status: Acute (2) COPD (chronic obstructive pulmonary disease) Code(s): J44.9 - Chronic obstructive pulmonary disease, unspecified Status: Acute (3) Pneumonia Code(s): J18.9 - Pneumonia, unspecified organism Status: Acute (4) Mood disorder due to known physiological condition with depressive features Code(s): F06.31 - Mood disorder due to known physiological condition with depressive features Status: Acute (5) Gout Code(s): M10.9 - Gout, unspecified Status: Acute (6) Hypertension Code(s): I10 - Essential (primary) hypertension Status: Acute - Plan Patient has acute tubular necrosis likely due to vancomycin levels are high Check urine sodium, creatinine Urine eosinophils Monitor intake and output decline avoid nephrotoxic agents Continue to hydrate cautiously normal saline at 75 cc an hour Monitor BMP
--- NOTE | 2018-09-12 17:10 | P.PN ---
Subjective Interval history: He has some cough and wheezing. CR is higher today. No fever. CXR shows some improvement. Physical Exam Vital signs: Vital Signs 09/11/18 18:00 09/11/18 18:01 09/11/18 19:43 Temperature Pulse Rate 82 82 83 Respiratory Rate 20 21 16 Blood Pressure 106/46 L Pulse Oximetry 93 L 93 L 93 L 09/11/18 20:00 09/11/18 22:00 09/12/18 00:00 Temperature 97.9 F 98.3 F Pulse Rate 85 80 78 Respiratory Rate 24 20 Blood Pressure 139/62 119/61 Pulse Oximetry 93 L 95 09/12/18 00:26 09/12/18 01:20 09/12/18 04:00 Temperature 98.5 F Pulse Rate 81 86 82 Respiratory Rate 17 20 Blood Pressure 104/57 L Pulse Oximetry 95 09/12/18 04:50 09/12/18 06:00 09/12/18 07:30 Temperature Pulse Rate 86 88 90 Respiratory Rate 19 18 Blood Pressure Pulse Oximetry 95 09/12/18 08:00 09/12/18 09:00 09/12/18 10:00 Temperature 98.7 F Pulse Rate 93 H 92 H 94 H Respiratory Rate 25 H 22 36 H Blood Pressure Pulse Oximetry 94 L 95 92 L 09/12/18 11:00 09/12/18 11:01 09/12/18 12:00 Temperature Pulse Rate 92 H 94 H 100 H Respiratory Rate 25 H 18 25 H Blood Pressure Pulse Oximetry 95 94 L 09/12/18 12:01 09/12/18 15:27 Temperature Pulse Rate 100 H 85 Respiratory Rate 25 H 21 Blood Pressure 130/62 Pulse Oximetry 94 L Intake & Output 09/11/18 09/12/18 09/12/18 18:59 06:59 18:59 Intake Total 50 / 50 710 / 710 50 / 50 Output Total 500 / 500 500 / 500 Balance -450 / -450 210 / 210 50 / 50 Weight 104 kg Intake: IV 50 / 50 350 / 350 50 / 50 Azithromycin Inj 500 MG In NS 250 / 250 Inj 250 ML @ 250 mls/hr IV.SIG Q24H [facility] Rx#:[id number] Zosyn 3.375 GM Premix 50 ML @ 50 / 50 100 / 100 50 / 50 100 mls/hr IV.SIG Q8H [facility] Rx#: [id number] Oral 360 / 360 Output: Urine 500 / 500 500 / 500 Other: # Voids 1 Narrative: GENERAL: Well-nourished,Obese elderly W/M alert.NAD SKIN: Warm and dry. HEAD: Normocephalic. EYES: No scleral icterus. No injection or drainage. NECK: Supple, trachea midline. No JVD or lymphadenopathy. CARDIOVASCULAR: Regular rate and rhythm without murmurs, gallops, or rubs. RESPIRATORY: Breath sounds diminished at bases.Occ Crackles at bases. GASTROINTESTINAL: Abdomen soft, non-tender, nondistended. EXTREMITIES: 1+ edema NEUROLOGICAL: Awake, alert, and oriented x 3. Non-focal. Results - Labs CBC & Chem 7: 09/12/18 03:17 09/12/18 03:17 Laboratory Results - last 24 hr 09/11/18 09/11/18 09/12/18 18:40 23:47 03:17 WBC 12.4 H D RBC 3.06 L Hgb 8.5 L Hct 24.9 L MCV 81.2 MCH 27.7 MCHC 34.2 RDW 16.3 Plt Count 221 MPV 6.7 L Neut % (Auto) 94.6 H Lymph % (Auto) 2.8 L [place] % (Auto) 2.6 Eos % (Auto) 0.0 Baso % (Auto) 0.0 Neut # (Auto) 11.7 H Lymph # (Auto) 0.3 L [place] # (Auto) 0.3 Eos # (Auto) 0.0 Baso # (Auto) 0.0 WBC Differential . Differential Comment Auto diff final Sodium Potassium Chloride Carbon Dioxide Anion Gap BUN Creatinine Estimated GFR POC Glucose 217 H 290 H Random Glucose Calcium Phosphorus Magnesium Total Bilirubin AST ALT Alkaline Phosphatase Total Protein Albumin Random Vancomycin 09/12/18 09/12/18 09/12/18 03:17 05:49 12:47 WBC RBC Hgb Hct MCV MCH MCHC RDW Plt Count MPV Neut % (Auto) Lymph % (Auto) [place] % (Auto) Eos % (Auto) Baso % (Auto) Neut # (Auto) Lymph # (Auto) [place] # (Auto) Eos # (Auto) Baso # (Auto) WBC Differential Differential Comment Sodium 135 L Potassium 4.0 Chloride 99 Carbon Dioxide 23.0 Anion Gap 13 BUN 48 H Creatinine 2.70 H Estimated GFR 23 L POC Glucose 213 H 349 H Random Glucose 180 H Calcium 8.5 Phosphorus 2.6 Magnesium 2.3 Total Bilirubin 0.6 AST 17 ALT 17 Alkaline Phosphatase 61 Total Protein 6.9 Albumin 2.7 L Random Vancomycin 31.0 - Imaging Impressions Chest X-Ray 09/12/18 08:47 CONCLUSION: No appreciable change. 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 Acute hypoxemic respiratory insufficiency. 2. Left upper lobe pneumonia per CT chest. 3. B/l pulm infiltrates 4. Acute kidney injury. 5. Anemia. 6. Coronary artery disease. 7. Diabetes mellitus. 8. Hypertension. 9. Chronic obstructive pulmonary disease. 10. Obesity. Plan Pulm: 1)Continue with oxygen and maintain sats>92%. Bronchodilators, Solu-Medrol 40 mg IVQ8, add Symbicort 160/4.5 two puffs b.i.d. 2) CXR 09/11: Improved aeration in the right lower lung zone. small left pleural effusion and associated left lower lobe airspace consolidation. Rpt CXR 3) Cont Antibiotics 4) Duoneb nebs qid. 5) Hold diuretic
[2018-09-12] MEDS: Azithromycin Inj 500 MG in Sodium Chlor 0.9% Inj 250 ML IV.SIG SCH (18:33)
[2018-09-12] MEDS: QUEtiapine 25 MG Tablet PO SCH (20:45)
[2018-09-13] MEDS: Sod Chloride 0.9% Inj 1,000 ML IV.CONT SCH ×3 (00:06→15:07)
[2018-09-13] MEDS: Insulin NovoLOG Aspart Correctional Sugar Inj SQ SCH ×4 (00:14→17:58)
[2018-09-13 01:21] LABS: Amorphous Sediment,Urine Rare /hpf; Bacteria,Urine Rare /hpf; Bilirubin,Urine Negative (Negative); Calcium Oxalate Crystals,Urine Rare /hpf; Clarity,Urine Cloudy (Clear); Color,Urine Yellow (Yellw/Straw); Glucose,Urine (UA) Negative (Negative); Leukocyte Esterase,Urine Negative (Negative); Mucus,Urine Few /lpf (Occasional); Nitrite,Urine Negative (Negative); Renal Epithelial Cells,Urine <1 /hpf; Squamous Epithelial Cell,Urine 9 /hpf (0-5); Transitional Epi Cells,Urine <1 /hpf
[2018-09-13 01:33] LABS: Creatinine,Urine Random 157 mg/dL (27-300); Sodium,Urine Random 10 meq/L
[2018-09-13] MEDS: Piperacil/Tazo 3.375 GM Premix 50 ML IV.SIG SCH ×3 (03:29→17:57)
[2018-09-13] MEDS: Chlorhexidine Gluconate 2% 1 Pack (2 Cloths) TOPICAL SCH (03:29)
[2018-09-13 04:41] LABS: Baso % (Auto) 0.1 % (0.0-2.0); Hematocrit 24.8 % (39.0-51.0); Hemoglobin 8.2 gm/dL (13.0-17.0); Lymph # (Auto) 0.4 th/mm3 (1.0-4.8); Lymph % (Auto) 3.1 % (9.0-44.0); Mean Corpuscular HGB Conc 32.9 % (32.0-36.0); Mean Corpuscular Hemoglobin 26.9 pg (27.0-34.0); Mean Corpuscular Volume 81.6 fL (80.0-100.0); Mean Platelet Volume 6.9 fL (7.0-11.0); Mono # (Auto) 0.4 th/mm3 (0.0-0.9); Mono % (Auto) 2.5 % (0.0-8.0); Neut # (Auto) 13.3 th/mm3 (1.8-7.7); Neut % (Auto) 94.3 % (16.0-70.0); Platelet Count 247 th/mm3 (150-450); Red Blood Count 3.05 mil/mm3 (4.50-5.90); Red Cell Distribution Width 16.4 % (11.6-17.2); White Blood Count 14.1 th/mm3 (4.0-11.0)
[2018-09-13 05:11] LABS: Alanine Aminotransferase 26 U/L (12-78); Albumin 2.8 g/dL (3.4-5.0); Alkaline Phosphatase 62 U/L (45-117); Anion Gap 14 meq/L (5-15); Aspartate Aminotransferase 26 U/L (15-37); Blood Urea Nitrogen 62 mg/dL (7-18); Calcium 8.6 mg/dL (8.5-10.1); Carbon Dioxide 24.3 meq/L (21.0-32.0); Chloride 99 meq/L (98-107); Glomerular Filtration Rate 20 mL/min (>89); Glucose,Random 135 mg/dL (74-106); Magnesium 2.3 mg/dL (1.5-2.5); Phosphorus 2.8 mg/dL (2.5-4.9); Potassium 4.2 meq/L (3.5-5.1); Sodium 137 meq/L (136-145); Total Protein 6.9 g/dL (6.4-8.2); Vancomycin,Random 26.6 Comment
--- NOTE | 2018-09-13 06:56 | P.PNCC ---
Subjective Subjective Remarks/Hospital Course: Patient is a 78-year-old male with a past medical history of ? COPD, hypertension, diabetes mellitus, coronary artery disease and gout. He was admitted to inpatient medication psych on 08/17/2018 for suicidal ideation and acute kidney injury. He was found to have a creatinine of 1.64. During his hospital course, the patient was seen by hospitalist service. He had a chest x- ray on 08/19/2018. At that time it showed mild basilar opacity, probably subsegmental atelectasis with trace pleural fluid. Then, he had a CT scan of the chest on 09/07/2018 which showed suspected left hilar mass, mild congestive heart failure with small bilateral pleural effusions, left upper lobe pneumonia and focal atypical appearing infiltrate in the right middle lobe with dependent atelectasis of both lower lobes. He was started on broad-spectrum antibiotics. The patient had a V/Q scan on 09/08/2018 which showed a low probability for pulmonary embolism. Helicat was called for increased O2 requirements and the patient was subsequently transferred to [facility] and Critical Care Medicine was consulted for critical care management. When seen, the patient was on partial nonrebreather mask with a saturation of 100%. Blood pressure 151/70 with a pulse of 89. The patient states that he quit smoking over 20 years ago. He does not use any inhalers or nebulizers at home. He denies any nausea, vomiting or abdominal pain. 09/11 Patient is lying in bed in NAD. Afebrile. 09/12 Patient is lying in bed in NAD. On 4L oxygen. Afebrile. Renal function worse today with Cr: 2.70 from 1.81 09/13 Patient is lying in bed in NAD. Afebrile, Renal function is worsening with Cr: 3.04 from 2.70 Objective Vital Signs / I&O: Vital Signs 09/12/18 07:30 09/12/18 08:00 09/12/18 09:00 Temperature 98.7 F Pulse Rate 90 93 H 92 H Respiratory Rate 18 25 H 22 Blood Pressure Pulse Oximetry 95 94 L 95 09/12/18 10:00 09/12/18 11:00 09/12/18 11:01 Temperature Pulse Rate 94 H 92 H 94 H Respiratory Rate 36 H 25 H 18 Blood Pressure Pulse Oximetry 92 L 95 09/12/18 12:00 09/12/18 12:01 09/12/18 13:00 Temperature Pulse Rate 100 H 100 H 94 H Respiratory Rate 25 H 25 H 35 H Blood Pressure 130/62 Pulse Oximetry 94 L 94 L 90 L 09/12/18 14:00 09/12/18 15:00 09/12/18 15:27 Temperature Pulse Rate 90 99 H 85 Respiratory Rate 19 55 H 21 Blood Pressure Pulse Oximetry 94 L 90 L 09/12/18 16:00 09/12/18 16:01 09/12/18 17:00 Temperature Pulse Rate 76 75 91 H Respiratory Rate 29 H 31 H 29 H Blood Pressure 97/47 L Pulse Oximetry 85 L 87 L 95 09/12/18 18:00 09/12/18 20:00 09/12/18 20:09 Temperature 97.8 F Pulse Rate 86 85 Respiratory Rate 24 Blood Pressure 121/56 L Pulse Oximetry 95 96 09/12/18 22:00 09/13/18 00:00 09/13/18 00:15 Temperature 97.8 F Pulse Rate 80 86 84 Respiratory Rate 22 20 Blood Pressure 129/63 Pulse Oximetry 93 L 09/13/18 02:00 09/13/18 03:20 09/13/18 04:00 Temperature 97.9 F Pulse Rate 85 85 108 H Respiratory Rate 20 25 H Blood Pressure 129/65 Pulse Oximetry 93 L 09/13/18 06:00 Temperature Pulse Rate 79 Respiratory Rate Blood Pressure Pulse Oximetry Intake & Output 09/12/18 09/12/18 09/13/18 06:59 18:59 06:59 Intake Total 710 / 710 50 / 50 1530 / 1530 Output Total 500 / 500 300 / 300 165 / 165 Balance 210 / 210 -250 / -250 1365 / 1365 Weight 104 kg 106.3 kg Intake: IV 350 / 350 50 / 50 1350 / 1350 NS Inj 1,000 ML @ 75 mls/hr IV. 1000 / 1000 CONT .[id number] [facility] Rx#:[id number] Azithromycin Inj 500 MG In NS 250 / 250 250 / 250 Inj 250 ML @ 250 mls/hr IV.SIG Q24H [facility] Rx#:[id number] Zosyn 3.375 GM Premix 50 ML @ 100 / 100 50 / 50 100 / 100 100 mls/hr IV.SIG Q8H [facility] Rx#: [id number] Oral 360 / 360 180 / 180 Output: Urine 500 / 500 300 / 300 165 / 165 Other: # Voids 1 Result Diagrams: 09/13/18 03:35 09/13/18 03:35 Other Results: Laboratory Results - last 12 hr 09/12/18 09/12/18 09/12/18 23:55 23:55 23:55 WBC RBC Hgb Hct MCV MCH MCHC RDW Plt Count MPV Neut % (Auto) Lymph % (Auto) [place] % (Auto) Eos % (Auto) Baso % (Auto) Neut # (Auto) Lymph # (Auto) [place] # (Auto) Eos # (Auto) Baso # (Auto) WBC Differential Differential Comment Sodium Potassium Chloride Carbon Dioxide Anion Gap BUN Creatinine Estimated GFR POC Glucose Random Glucose Calcium Phosphorus Magnesium Total Bilirubin AST ALT Alkaline Phosphatase Total Protein Albumin Urine Color Yellow Urine Clarity Cloudy H Urine pH 5.0 Ur Specific [place] 1.020 Urine Protein 100 H Urine Glucose (UA) Negative Urine Ketones Negative Urine Occult Blood Small H Urine Nitrate Negative Urine Bilirubin Negative Urine Urobilinogen Less than 2 Ur Leukocyte Esterase Negative Urine RBC 2 Urine WBC 6 H Ur Squamous Epith Cells 9 Ur Transition Epith Cell <1 Ur Renal Epithelial Cell <1 Calcium Oxalate Crystal Rare H Amorphous Sediment Rare H Urine Bacteria Rare H Urine Mucus Few H Micro UA Comment Culture not ind Ur Microscopic Review Not Reportable Urine Culture Comments Culture not ind Urine Eosinophils None seen Ur Random Creatinine 157 Ur Random Sodium 10 Random Vancomycin 09/12/18 09/13/18 09/13/18 23:58 03:35 03:35 WBC 14.1 H RBC 3.05 L Hgb 8.2 L Hct 24.8 L MCV 81.6 MCH 26.9 L MCHC 32.9 RDW 16.4 Plt Count 247 MPV 6.9 L Neut % (Auto) 94.3 H Lymph % (Auto) 3.1 L [place] % (Auto) 2.5 Eos % (Auto) 0.0 Baso % (Auto) 0.1 Neut # (Auto) 13.3 H Lymph # (Auto) 0.4 L [place] # (Auto) 0.4 Eos # (Auto) 0.0 Baso # (Auto) 0.0 WBC Differential . Differential Comment Auto diff final Sodium 137 Potassium 4.2 Chloride 99 Carbon Dioxide 24.3 Anion Gap 14 BUN 62 H Creatinine 3.04 H Estimated GFR 20 L POC Glucose 209 H Random Glucose 135 H Calcium 8.6 Phosphorus 2.8 Magnesium 2.3 Total Bilirubin 0.6 AST 26 ALT 26 Alkaline Phosphatase 62 Total Protein 6.9 Albumin 2.8 L Urine Color Urine Clarity Urine pH Ur Specific [place] Urine Protein Urine Glucose (UA) Urine Ketones Urine Occult Blood Urine Nitrate Urine Bilirubin Urine Urobilinogen Ur Leukocyte Esterase Urine RBC Urine WBC Ur Squamous Epith Cells Ur Transition Epith Cell Ur Renal Epithelial Cell Calcium Oxalate Crystal Amorphous Sediment Urine Bacteria Urine Mucus Micro UA Comment Ur Microscopic Review Urine Culture Comments Urine Eosinophils Ur Random Creatinine Ur Random Sodium Random Vancomycin 26.6 09/13/18 05:16 WBC RBC Hgb Hct MCV MCH MCHC RDW Plt Count MPV Neut % (Auto) Lymph % (Auto) [place] % (Auto) Eos % (Auto) Baso % (Auto) Neut # (Auto) Lymph # (Auto) [place] # (Auto) Eos # (Auto) Baso # (Auto) WBC Differential Differential Comment Sodium Potassium Chloride Carbon Dioxide Anion Gap BUN Creatinine Estimated GFR POC Glucose 178 H Random Glucose Calcium Phosphorus Magnesium Total Bilirubin AST ALT Alkaline Phosphatase Total Protein Albumin Urine Color Urine Clarity Urine pH Ur Specific [place] Urine Protein Urine Glucose (UA) Urine Ketones Urine Occult Blood Urine Nitrate Urine Bilirubin Urine Urobilinogen Ur Leukocyte Esterase Urine RBC Urine WBC Ur Squamous Epith Cells Ur Transition Epith Cell Ur Renal Epithelial Cell Calcium Oxalate Crystal Amorphous Sediment Urine Bacteria Urine Mucus Micro UA Comment Ur Microscopic Review Urine Culture Comments Urine Eosinophils Ur Random Creatinine Ur Random Sodium Random Vancomycin Imaging: Abdomen/Bladder Ultrasound 09/11/18 00:00 CONCLUSION: 1. Increased renal cortical echogenicity characteristic of chronic parenchymal disease. 2. No evidence of hydronephrosis. 3. No suspicious masses identified. Chest X-Ray 09/12/18 08:47 CONCLUSION: No appreciable change. Objective Remarks: GENERAL: Patient is 78 yo lying in bed in NAD SKIN: Warm and dry. HEAD: Normocephalic. EYES: No scleral icterus. No injection or drainage. NECK: Supple, trachea midline. No JVD or lymphadenopathy. CARDIOVASCULAR: Regular rate and rhythm without murmurs, gallops, or rubs. RESPIRATORY: Breath sounds equal bilaterally. Coarse BS GASTROINTESTINAL: Abdomen soft, non-tender, nondistended. MUSCULOSKELETAL: No cyanosis, or edema. Neuro: Awake and alert Assessment and Plan - Assessment and Plan Plan: 1. Acute hypoxemic respiratory insufficiency. 2. Left upper lobe pneumonia pr CT chest. 3. B/l pulm infiltrates 4. Acute kidney injury. 5. Anemia. 6. Coronary artery disease. 7. Diabetes mellitus. 8. Hypertension. 9. Chronic obstructive pulmonary disease. 10. Obesity. Plan Neuro: Monitor neuro status and avoid any sedatives. Psych is following Pulm: Continue with oxygen and maintain sats>92%. Bronchodilators, Solu-Medrol 60 mg IVQ8, add Symbicort 160/4.5 two puffs b.i.d. Pulm is following-Dr. Garcia CXR 09/12- unchanged CV: on Cardizem 60 mg QID Monitor HR and BP keep MAP>65mmHg Echo on 08/30/2018 EF of 50% to 55%. PA pressure 32 mmHg. : Monitor renal function, I's and O's, and avoid nephrotoxins. Renal US: No masses, no hydronephrosis Renal function worse today with Cr: 3.04 from 2.70 f Continue IVF- NS@75ml/hr, renal is following- Dr. Krueger ARF likely due to ATN 2nd Vanco tox. GI: on Protonix 40 mg IV daily for GI prophylaxis. On cardiac diet ID: Continue abx Azithromycin, Zosyn Monitor for signs of infection( fever and WBC). strep pneumonia and legionella urinary antigen negative Heme: Monitor CBC. Endo: SSI to medium scale with Accu-Chek for glycemic GI prophylaxis with Protonix 40 mg daily DVT prophylaxis with SCD and heparin subcu Level 2
[2018-09-13] MEDS: dilTIAZem 60 MG Tablet PO SCH ×4 (09:34→21:34)
[2018-09-13] MEDS: Heparin - SQ 10,000 UNITS/ML Vial SQ SCH ×2 (09:34→21:34)
[2018-09-13] MEDS: Budesonide-Formoterol 160/4.5 MCG 6 GM Inhaler INH SCH ×2 (09:34→21:34)
[2018-09-13] MEDS: Sodium Chloride 0.9% 2 ML Flush BID IV.FLUSH SCH ×2 (09:35→21:34)
[2018-09-13] MEDS: Pantoprazole Inj 40 MG Vial IV.PUSH SCH (09:35)
[2018-09-13] MEDS: MethylPREDNISolone Sod Succinate Inj 40 MG/ML Vial IV.PUSH SCH ×2 (09:35→21:33)
[2018-09-13] MEDS ORDERED: Albumin Human 25% Inj 100 ML IV.SIG PRN (13:43)
--- NOTE | 2018-09-13 13:43 | P.PNNP ---
Subjective Interval history: Patient is sleepy feels tired Physical Exam Vital signs: Vital Signs 09/12/18 14:00 09/12/18 15:00 09/12/18 15:27 Temperature Pulse Rate 90 99 H 85 Respiratory Rate 19 55 H 21 Blood Pressure Pulse Oximetry 94 L 90 L 09/12/18 16:00 09/12/18 16:01 09/12/18 17:00 Temperature Pulse Rate 76 75 91 H Respiratory Rate 29 H 31 H 29 H Blood Pressure 97/47 L Pulse Oximetry 85 L 87 L 95 09/12/18 18:00 09/12/18 20:00 09/12/18 20:09 Temperature 97.8 F Pulse Rate 86 85 Respiratory Rate 24 Blood Pressure 121/56 L Pulse Oximetry 95 96 09/12/18 22:00 09/13/18 00:00 09/13/18 00:15 Temperature 97.8 F Pulse Rate 80 86 84 Respiratory Rate 22 20 Blood Pressure 129/63 Pulse Oximetry 93 L 09/13/18 02:00 09/13/18 03:20 09/13/18 04:00 Temperature 97.9 F Pulse Rate 85 85 108 H Respiratory Rate 20 25 H Blood Pressure 129/65 Pulse Oximetry 93 L 09/13/18 06:00 09/13/18 07:32 09/13/18 08:00 Temperature Pulse Rate 79 91 H 90 Respiratory Rate 18 20 Blood Pressure Pulse Oximetry 92 L 90 L 09/13/18 08:01 09/13/18 09:00 09/13/18 10:00 Temperature Pulse Rate 93 H 98 H 97 H Respiratory Rate 21 23 25 H Blood Pressure 99/50 L Pulse Oximetry 90 L 91 L 91 L 09/13/18 11:00 Temperature Pulse Rate 83 Respiratory Rate 14 Blood Pressure Pulse Oximetry 96 Intake & Output 09/12/18 09/13/18 09/13/18 18:59 06:59 18:59 Intake Total 50 / 50 1530 / 1530 50 / 50 Output Total 300 / 300 165 / 165 Balance -250 / -250 1365 / 1365 50 / 50 Weight 106.3 kg Intake: IV 50 / 50 1350 / 1350 50 / 50 NS Inj 1,000 ML @ 75 mls/hr IV. 1000 / 1000 CONT .[id number] [facility] Rx#:[id number] Azithromycin Inj 500 MG In NS 250 / 250 Inj 250 ML @ 250 mls/hr IV.SIG Q24H [facility] Rx#:[id number] Zosyn 3.375 GM Premix 50 ML @ 50 / 50 100 / 100 50 / 50 100 mls/hr IV.SIG Q8H [facility] Rx#: [id number] Oral 180 / 180 Output: Urine 300 / 300 165 / 165 Narrative: GENERAL: Well-nourished,Obese elderly W/M alert.NAD SKIN: Warm and dry. HEAD: Normocephalic. EYES: No scleral icterus. No injection or drainage. NECK: Supple, trachea midline. No JVD or lymphadenopathy. CARDIOVASCULAR: Regular rate and rhythm without murmurs, gallops, or rubs. RESPIRATORY: Breath sounds diminished at bases.Occ Crackles at bases. GASTROINTESTINAL: Abdomen soft, non-tender, nondistended. EXTREMITIES: 1+ edema NEUROLOGICAL: Awake, alert, and oriented x 3. Non-focal. Assessment and Plan - Assessment (1) Acute renal failure Code(s): N17.9 - Acute kidney failure, unspecified Status: Acute (2) COPD (chronic obstructive pulmonary disease) Code(s): J44.9 - Chronic obstructive pulmonary disease, unspecified Status: Acute (3) Pneumonia Code(s): J18.9 - Pneumonia, unspecified organism Status: Acute (4) Mood disorder due to known physiological condition with depressive features Code(s): F06.31 - Mood disorder due to known physiological condition with depressive features Status: Acute (5) Gout Code(s): M10.9 - Gout, unspecified Status: Acute (6) Hypertension Code(s): I10 - Essential (primary) hypertension Status: Acute - Plan Patient has acute tubular necrosis likely due to vancomycin levels are high Give albumin and Lasix Decreased IV fluid to 30 cc an hour KVO Sodium has dropped patient creatinine is higher Monitor BMP
[2018-09-13] MEDS: Azithromycin Inj 500 MG in Sodium Chlor 0.9% Inj 250 ML IV.SIG SCH (17:17)
--- NOTE | 2018-09-13 18:11 | P.PN ---
Subjective Interval history: Awake but lethargic. On O2 4 L . Renal functions are worse.On Albumin and Lasix. No chest pains. Physical Exam Vital signs: Vital Signs 09/12/18 20:00 09/12/18 20:09 09/12/18 22:00 Temperature 97.8 F Pulse Rate 85 80 Respiratory Rate 24 Blood Pressure 121/56 L Pulse Oximetry 95 96 09/13/18 00:00 09/13/18 00:15 09/13/18 02:00 Temperature 97.8 F Pulse Rate 86 84 85 Respiratory Rate 22 20 Blood Pressure 129/63 Pulse Oximetry 93 L 09/13/18 03:20 09/13/18 04:00 09/13/18 06:00 Temperature 97.9 F Pulse Rate 85 108 H 79 Respiratory Rate 20 25 H Blood Pressure 129/65 Pulse Oximetry 93 L 09/13/18 07:32 09/13/18 08:00 09/13/18 08:01 Temperature Pulse Rate 91 H 90 93 H Respiratory Rate 18 20 21 Blood Pressure 99/50 L Pulse Oximetry 92 L 90 L 90 L 09/13/18 09:00 09/13/18 10:00 09/13/18 11:00 Temperature Pulse Rate 98 H 97 H 83 Respiratory Rate 23 25 H 14 Blood Pressure Pulse Oximetry 91 L 91 L 96 09/13/18 12:00 09/13/18 13:00 09/13/18 14:00 Temperature Pulse Rate 86 91 H 76 Respiratory Rate 21 20 14 Blood Pressure 144/82 H Pulse Oximetry 90 L 87 L 95 09/13/18 15:00 09/13/18 15:40 09/13/18 16:00 Temperature Pulse Rate 78 77 92 H Respiratory Rate 14 14 21 Blood Pressure 132/63 Pulse Oximetry 96 88 L 09/13/18 17:00 Temperature Pulse Rate 93 H Respiratory Rate 25 H Blood Pressure Pulse Oximetry 92 L Intake & Output 09/12/18 09/13/18 09/13/18 18:59 06:59 18:59 Intake Total 50 / 50 1530 / 1530 50 / 50 Output Total 300 / 300 165 / 165 Balance -250 / -250 1365 / 1365 50 / 50 Weight 106.3 kg Intake: IV 50 / 50 1350 / 1350 50 / 50 NS Inj 1,000 ML @ 75 mls/hr IV. 1000 / 1000 CONT .[id number] [facility] Rx#:[id number] Azithromycin Inj 500 MG In NS 250 / 250 Inj 250 ML @ 250 mls/hr IV.SIG Q24H [facility] Rx#:[id number] Zosyn 3.375 GM Premix 50 ML @ 50 / 50 100 / 100 50 / 50 100 mls/hr IV.SIG Q8H [facility] Rx#: [id number] Oral 180 / 180 Output: Urine 300 / 300 165 / 165 Narrative: GENERAL: Well-nourished,Obese elderly W/M in NAD SKIN: Warm and dry. HEAD: Normocephalic. EYES: No scleral icterus. No injection or drainage. NECK: Supple, trachea midline. No JVD or lymphadenopathy. CARDIOVASCULAR: Regular rate and rhythm without murmurs, gallops, or rubs. RESPIRATORY: Breath sounds diminished at bases. Wheezes and Occ Crackles at bases. GASTROINTESTINAL: Abdomen soft, non-tender, nondistended. EXTREMITIES: 1+ edema NEUROLOGICAL: Awake, Non-focal. Moves all. Results - Labs CBC & Chem 7: 09/13/18 03:35 09/13/18 03:35 Laboratory Results - last 24 hr 09/12/18 09/12/18 09/12/18 23:55 23:55 23:55 WBC RBC Hgb Hct MCV MCH MCHC RDW Plt Count MPV Neut % (Auto) Lymph % (Auto) [place] % (Auto) Eos % (Auto) Baso % (Auto) Neut # (Auto) Lymph # (Auto) [place] # (Auto) Eos # (Auto) Baso # (Auto) WBC Differential Differential Comment Sodium Potassium Chloride Carbon Dioxide Anion Gap BUN Creatinine Estimated GFR POC Glucose Random Glucose Calcium Phosphorus Magnesium Total Bilirubin AST ALT Alkaline Phosphatase Total Protein Albumin Urine Color Yellow Urine Clarity Cloudy H Urine pH 5.0 Ur Specific [place] 1.020 Urine Protein 100 H Urine Glucose (UA) Negative Urine Ketones Negative Urine Occult Blood Small H Urine Nitrate Negative Urine Bilirubin Negative Urine Urobilinogen Less than 2 Ur Leukocyte Esterase Negative Urine RBC 2 Urine WBC 6 H Ur Squamous Epith Cells 9 Ur Transition Epith Cell <1 Ur Renal Epithelial Cell <1 Calcium Oxalate Crystal Rare H Amorphous Sediment Rare H Urine Bacteria Rare H Urine Mucus Few H Micro UA Comment Culture not ind Ur Microscopic Review Not Reportable Urine Culture Comments Culture not ind Urine Eosinophils None seen Ur Random Creatinine 157 Ur Random Sodium 10 Random Vancomycin 09/12/18 09/13/18 09/13/18 23:58 03:35 03:35 WBC 14.1 H RBC 3.05 L Hgb 8.2 L Hct 24.8 L MCV 81.6 MCH 26.9 L MCHC 32.9 RDW 16.4 Plt Count 247 MPV 6.9 L Neut % (Auto) 94.3 H Lymph % (Auto) 3.1 L [place] % (Auto) 2.5 Eos % (Auto) 0.0 Baso % (Auto) 0.1 Neut # (Auto) 13.3 H Lymph # (Auto) 0.4 L [place] # (Auto) 0.4 Eos # (Auto) 0.0 Baso # (Auto) 0.0 WBC Differential . Differential Comment Auto diff final Sodium 137 Potassium 4.2 Chloride 99 Carbon Dioxide 24.3 Anion Gap 14 BUN 62 H Creatinine 3.04 H Estimated GFR 20 L POC Glucose 209 H Random Glucose 135 H Calcium 8.6 Phosphorus 2.8 Magnesium 2.3 Total Bilirubin 0.6 AST 26 ALT 26 Alkaline Phosphatase 62 Total Protein 6.9 Albumin 2.8 L Urine Color Urine Clarity Urine pH Ur Specific [place] Urine Protein Urine Glucose (UA) Urine Ketones Urine Occult Blood Urine Nitrate Urine Bilirubin Urine Urobilinogen Ur Leukocyte Esterase Urine RBC Urine WBC Ur Squamous Epith Cells Ur Transition Epith Cell Ur Renal Epithelial Cell Calcium Oxalate Crystal Amorphous Sediment Urine Bacteria Urine Mucus Micro UA Comment Ur Microscopic Review Urine Culture Comments Urine Eosinophils Ur Random Creatinine Ur Random Sodium Random Vancomycin 26.6 09/13/18 09/13/18 09/13/18 05:16 13:13 17:54 WBC RBC Hgb Hct MCV MCH MCHC RDW Plt Count MPV Neut % (Auto) Lymph % (Auto) [place] % (Auto) Eos % (Auto) Baso % (Auto) Neut # (Auto) Lymph # (Auto) [place] # (Auto) Eos # (Auto) Baso # (Auto) WBC Differential Differential Comment Sodium Potassium Chloride Carbon Dioxide Anion Gap BUN Creatinine Estimated GFR POC Glucose 178 H 286 H 273 H Random Glucose Calcium Phosphorus Magnesium Total Bilirubin AST ALT Alkaline Phosphatase Total Protein Albumin Urine Color Urine Clarity Urine pH Ur Specific [place] Urine Protein Urine Glucose (UA) Urine Ketones Urine Occult Blood Urine Nitrate Urine Bilirubin Urine Urobilinogen Ur Leukocyte Esterase Urine RBC Urine WBC Ur Squamous Epith Cells Ur Transition Epith Cell Ur Renal Epithelial Cell Calcium Oxalate Crystal Amorphous Sediment Urine Bacteria Urine Mucus Micro UA Comment Ur Microscopic Review Urine Culture Comments Urine Eosinophils Ur Random Creatinine Ur Random Sodium Random Vancomycin Microbiology 09/12/18 09:40 Sputum - Expectorated Sputum Gram Stain - Final 09/12/18 09:40 Sputum - Expectorated Sputum Sputum Culture - Preliminary Heavy growth normal respiratory zeb at 24 hours Assessment and Plan - Assessment (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 Acute hypoxemic respiratory insufficiency. 2. Left upper lobe pneumonia per CT chest. 3. B/l pulm infiltrates 4. Acute kidney injury. 5. Anemia. 6. Coronary artery disease. 7. Diabetes mellitus. 8. Hypertension. 9. Chronic obstructive pulmonary disease. 10. Obesity. Plan Pulm: 1)Continue with oxygen and maintain sats>92%. Bronchodilators, and Symbicort 160/4.5 two puffs b.i.d. Taper solumedrol to 40 mg BID 2) Cont Albumin and lasix. Rpt CXR, BMP 3) Cont Antibiotics 4) Duoneb nebs qid. 5) IS at bedside q3h
[2018-09-13] MEDS ORDERED: Pharmacy Ordered Lab Info OTHER ONE (19:45)
[2018-09-13] MEDS: QUEtiapine 25 MG Tablet PO SCH (21:34)
[2018-09-14] MEDS: Insulin NovoLOG Aspart Correctional Sugar Inj SQ SCH ×5 (00:32→23:40)
[2018-09-14] MEDS: Sod Chloride 0.9% Inj 1,000 ML IV.CONT SCH (00:32)
[2018-09-14] MEDS: Piperacil/Tazo 3.375 GM Premix 50 ML IV.SIG SCH ×3 (02:45→17:25)
[2018-09-14] MEDS: Chlorhexidine Gluconate 2% 1 Pack (2 Cloths) TOPICAL SCH (04:21)
[2018-09-14 05:52] LABS: Baso % (Auto) 0.1 % (0.0-2.0); Hematocrit 22.5 % (39.0-51.0); Hemoglobin 7.7 gm/dL (13.0-17.0); Lymph # (Auto) 0.4 th/mm3 (1.0-4.8); Lymph % (Auto) 3.3 % (9.0-44.0); Mean Corpuscular HGB Conc 34.4 % (32.0-36.0); Mean Corpuscular Volume 81.4 fL (80.0-100.0); Mono # (Auto) 0.4 th/mm3 (0.0-0.9); Mono % (Auto) 3.3 % (0.0-8.0); Neut # (Auto) 12.6 th/mm3 (1.8-7.7); Neut % (Auto) 93.3 % (16.0-70.0); Platelet Count 228 th/mm3 (150-450); Red Blood Count 2.77 mil/mm3 (4.50-5.90); Red Cell Distribution Width 16.7 % (11.6-17.2); White Blood Count 13.5 th/mm3 (4.0-11.0)
[2018-09-14 06:18] LABS: Alanine Aminotransferase 59 U/L (12-78); Albumin 2.7 g/dL (3.4-5.0); Alkaline Phosphatase 61 U/L (45-117); Anion Gap 11 meq/L (5-15); Aspartate Aminotransferase 66 U/L (15-37); Blood Urea Nitrogen 66 mg/dL (7-18); Calcium 8.4 mg/dL (8.5-10.1); Carbon Dioxide 24.7 meq/L (21.0-32.0); Chloride 103 meq/L (98-107); Glomerular Filtration Rate 19 mL/min (>89); Glucose,Random 173 mg/dL (74-106); Magnesium 2.5 mg/dL (1.5-2.5); Phosphorus 2.9 mg/dL (2.5-4.9); Potassium 3.9 meq/L (3.5-5.1); Sodium 139 meq/L (136-145); Total Protein 6.4 g/dL (6.4-8.2)
[2018-09-14 06:59] LABS: ABG Base Excess -0.7 mmol/L (-2-2); ABG PCO2 43 mmHg (38-42); ABG PO2 98 mmHG (61-120)
--- NOTE | 2018-09-14 07:16 | XR ---
EXAM DATE: 09/14/2018 7:07 AM EST AGE/SEX: 78 years / Male INDICATIONS: Shortness of breath. CLINICAL DATA: This is the patient's initial encounter. Patient reports that signs and symptoms have been present for 1 day and indicates a pain score of 0/10. MEDICAL/SURGICAL HISTORY: Congestive heart failure. Diabetes. Hypertension. None. COMPARISON: [facility] [place]ST 1V SINGLE AP, 09/12/2018. . FINDINGS: There is bilateral consolidation greatest in the right upper lobe and left upper lobe as well as a le ft lower lobe. There may be a small left effusion. Cardiomegaly is noted. The osseous structures are intact. CONCLUSION: Bilateral parenchymal consolidation. Electronically signed by: Twin Johnson MD 09/14/2018 7:15 AM EST
[2018-09-14 07:35] LABS: Lymphocytes 3 % (9-44); Metamyelocytes 1 % (0-1); Monocytes 1 % (0-8); Myelocytes 1 % (0-0); Platelet Estimate Normal (Normal); Platelet Morphology Normal (Normal)
--- NOTE | 2018-09-14 07:59 | P.PNCC ---
Subjective Subjective Remarks/Hospital Course: Patient is a 78-year-old male with a past medical history of ? COPD, hypertension, diabetes mellitus, coronary artery disease and gout. He was admitted to inpatient medication psych on 08/17/2018 for suicidal ideation and acute kidney injury. He was found to have a creatinine of 1.64. During his hospital course, the patient was seen by hospitalist service. He had a chest x- ray on 08/19/2018. At that time it showed mild basilar opacity, probably subsegmental atelectasis with trace pleural fluid. Then, he had a CT scan of the chest on 09/07/2018 which showed suspected left hilar mass, mild congestive heart failure with small bilateral pleural effusions, left upper lobe pneumonia and focal atypical appearing infiltrate in the right middle lobe with dependent atelectasis of both lower lobes. He was started on broad-spectrum antibiotics. The patient had a V/Q scan on 09/08/2018 which showed a low probability for pulmonary embolism. Helicat was called for increased O2 requirements and the patient was subsequently transferred to [facility] and Critical Care Medicine was consulted for critical care management. When seen, the patient was on partial nonrebreather mask with a saturation of 100%. Blood pressure 151/70 with a pulse of 89. The patient states that he quit smoking over 20 years ago. He does not use any inhalers or nebulizers at home. He denies any nausea, vomiting or abdominal pain. 09/11 Patient is lying in bed in NAD. Afebrile. 09/12 Patient is lying in bed in NAD. On 4L oxygen. Afebrile. Renal function worse today with Cr: 2.70 from 1.81 09/13 Patient is lying in bed in NAD. Afebrile, Renal function is worsening with Cr: 3.04 from 2.70 09/14 Patient dropped his sats overnight placed on partial rebreather, CXR this morning showed b/l pulm infiltrates. Given Lasix 40mg IV x1. Afebrile. Objective Vital Signs / I&O: Vital Signs 09/13/18 08:00 09/13/18 08:01 09/13/18 09:00 Temperature Pulse Rate 90 93 H 98 H Respiratory Rate 20 21 23 Blood Pressure 99/50 L Pulse Oximetry 90 L 90 L 91 L 09/13/18 10:00 09/13/18 11:00 09/13/18 12:00 Temperature Pulse Rate 97 H 83 86 Respiratory Rate 25 H 14 21 Blood Pressure 144/82 H Pulse Oximetry 91 L 96 90 L 09/13/18 13:00 09/13/18 14:00 09/13/18 15:00 Temperature Pulse Rate 91 H 76 78 Respiratory Rate 20 14 14 Blood Pressure Pulse Oximetry 87 L 95 96 09/13/18 15:40 09/13/18 16:00 09/13/18 17:00 Temperature Pulse Rate 77 92 H 93 H Respiratory Rate 14 21 25 H Blood Pressure 132/63 Pulse Oximetry 88 L 92 L 09/13/18 18:00 09/13/18 19:00 09/13/18 19:34 Temperature Pulse Rate 94 H 84 91 H Respiratory Rate 28 H 20 20 Blood Pressure Pulse Oximetry 87 L 92 L 09/13/18 19:37 09/13/18 20:00 09/13/18 21:00 Temperature 97.8 F Pulse Rate 94 H 91 H Respiratory Rate 23 20 Blood Pressure 141/64 H Pulse Oximetry 92 L 89 L 90 L 09/13/18 21:14 09/13/18 22:00 09/13/18 23:00 Temperature Pulse Rate 94 H 97 H 81 Respiratory Rate 32 H 25 H 21 Blood Pressure 141/64 H Pulse Oximetry 86 L 89 L 94 L 09/14/18 00:00 09/14/18 01:00 09/14/18 01:51 Temperature 98.0 F Pulse Rate 92 H 94 H 94 H Respiratory Rate 22 28 H 24 Blood Pressure 132/62 Pulse Oximetry 89 L 87 L 09/14/18 02:00 09/14/18 03:00 09/14/18 04:00 Temperature 98.1 F Pulse Rate 95 H 90 91 H Respiratory Rate 31 H 25 H 30 H Blood Pressure 126/62 Pulse Oximetry 91 L 89 L 85 L 09/14/18 05:00 09/14/18 06:00 09/14/18 07:33 Temperature Pulse Rate 88 88 Respiratory Rate 29 H Blood Pressure Pulse Oximetry 87 L 99 Intake & Output 09/13/18 09/14/18 09/14/18 18:59 06:59 18:59 Intake Total 1150 / 1150 390 / 390 Output Total 300 / 300 630 / 630 Balance 850 / 850 -240 / -240 Weight 106 kg Intake: IV 350 / 350 50 / 50 Azithromycin Inj 500 MG In NS 250 / 250 Inj 250 ML @ 250 mls/hr IV.SIG Q24H ZEKE Rx#:[id number] Zosyn 3.375 GM Premix 50 ML @ 100 / 100 50 / 50 100 mls/hr IV.SIG Q8H ZEKE Rx#: [id number] Oral 800 / 800 340 / 340 Output: Urine 300 / 300 630 / 630 Other: # Voids 3 # Bowel Movements 0 Result Diagrams: 09/14/18 04:46 09/14/18 04:46 Other Results: Laboratory Results - last 12 hr 09/14/18 09/14/18 09/14/18 00:27 04:46 04:46 WBC 13.5 H RBC 2.77 L Hgb 7.7 L Hct 22.5 L MCV 81.4 MCH 28.0 MCHC 34.4 RDW 16.7 Plt Count 228 MPV 7.0 Prelim Diff (Auto) Slide review pending Neut % (Auto) 93.3 H Lymph % (Auto) 3.3 L [place] % (Auto) 3.3 Eos % (Auto) 0.0 Baso % (Auto) 0.1 Neut # (Auto) 12.6 H Lymph # (Auto) 0.4 L [place] # (Auto) 0.4 Eos # (Auto) 0.0 Baso # (Auto) 0.0 WBC Differential Manual diff final Seg Neuts % (Manual) 89 H Band Neuts % (Manual) 5 Lymphocytes % (Manual) 3 L Monocytes % (Manual) 1 Metamyelocytes % (Man) 1 Myelocytes % (Man) 1 H Abs Neuts (Manual) 13.0 H Differential Comment . Platelet Estimate Normal Platelet Morphology Normal Puncture Site Patient Temperature O2 Saturation ABG pH ABG pCO2 ABG pO2 ABG HCO3 ABG O2 Content ABG Base Excess ABG Methemoglobin Cristian Test Hemoglobin Carboxyhemoglobin O2 Delivery Device Liter Flow Inspired O2 Critical Value Sodium 139 Potassium 3.9 Chloride 103 Carbon Dioxide 24.7 Anion Gap 11 BUN 66 H Creatinine 3.25 H Estimated GFR 19 L POC Glucose 234 H Random Glucose 173 H Calcium 8.4 L Phosphorus 2.9 Magnesium 2.5 Total Bilirubin 0.6 AST 66 H ALT 59 Alkaline Phosphatase 61 Total Protein 6.4 Albumin 2.7 L 09/14/18 09/14/18 05:27 06:47 WBC RBC Hgb Hct MCV MCH MCHC RDW Plt Count MPV Prelim Diff (Auto) Neut % (Auto) Lymph % (Auto) [place] % (Auto) Eos % (Auto) Baso % (Auto) Neut # (Auto) Lymph # (Auto) [place] # (Auto) Eos # (Auto) Baso # (Auto) WBC Differential Seg Neuts % (Manual) Band Neuts % (Manual) Lymphocytes % (Manual) Monocytes % (Manual) Metamyelocytes % (Man) Myelocytes % (Man) Abs Neuts (Manual) Differential Comment Platelet Estimate Platelet Morphology Puncture Site Right radial Patient Temperature 98.6 O2 Saturation 95 ABG pH 7.37 L ABG pCO2 43 H ABG pO2 98 ABG HCO3 24 ABG O2 Content 11.2 L ABG Base Excess -0.7 ABG Methemoglobin 1.4 Cristian Test Present Hemoglobin 8.3 L Carboxyhemoglobin 1.2 O2 Delivery Device Non-rebreathing mask Liter Flow 15.00 Inspired O2 100 Critical Value No Sodium Potassium Chloride Carbon Dioxide Anion Gap BUN Creatinine Estimated GFR POC Glucose 193 H Random Glucose Calcium Phosphorus Magnesium Total Bilirubin AST ALT Alkaline Phosphatase Total Protein Albumin Imaging: Abdomen/Bladder Ultrasound 09/11/18 00:00 CONCLUSION: 1. Increased renal cortical echogenicity characteristic of chronic parenchymal disease. 2. No evidence of hydronephrosis. 3. No suspicious masses identified. Chest X-Ray 09/14/18 00:00 CONCLUSION: Bilateral parenchymal consolidation. Objective Remarks: GENERAL: Patient is 78 yo lying in bed in NAD SKIN: Warm and dry. HEAD: Normocephalic. EYES: No scleral icterus. No injection or drainage. NECK: Supple, trachea midline. No JVD or lymphadenopathy. CARDIOVASCULAR: Regular rate and rhythm without murmurs, gallops, or rubs. RESPIRATORY: Breath sounds equal bilaterally. Coarse BS, crackles GASTROINTESTINAL: Abdomen soft, non-tender, nondistended. MUSCULOSKELETAL: No cyanosis, or edema. Neuro: Awake and alert Assessment and Plan - Assessment and Plan Plan: 1. Acute hypoxemic respiratory insufficiency. 2. Left upper lobe pneumonia pr CT chest. 3. B/l pulm infiltrates 4. Acute kidney injury. 5. Anemia. 6. Coronary artery disease. 7. Diabetes mellitus. 8. Hypertension. 9. Chronic obstructive pulmonary disease. 10. Obesity. Plan Neuro: Monitor neuro status and avoid any sedatives. Psych is following Pulm:Wean down oxygen as joyce and maintain sats>92%. Bronchodilators, Solu-Medrol 60 mg IVQ8, Symbicort 160/4.5 two puffs b.i.d. Pulm is following-Dr. Garcia CXR today- b/l pulm infiltrates If there is any worsening any resp status will proceed with intubation. CV: on Cardizem 60 mg QID Monitor HR and BP keep MAP>65mmHg Echo on 08/30/2018 EF of 50% to 55%. PA pressure 32 mmHg. : Monitor renal function, I's and O's, and avoid nephrotoxins. Renal US: No masses, no hydronephrosis Renal function worse today with Cr: 3.25 from 3.04 Renal is following- Dr. Krueger ARF likely due to ATN 2nd Vanco tox. D/c IVF given Lasix 40mg IV x1 this morning and placed on Bumex 2mg IV Q8 per renal. GI: on Protonix 40 mg IV daily for GI prophylaxis. On cardiac diet ID: Continue abx Azithromycin, Zosyn Monitor for signs of infection( fever and WBC). 09/12: normal resp zeb strep pneumonia and legionella urinary antigen negative Heme: Monitor CBC. Endo: SSI to medium scale with Accu-Chek for glycemic GI prophylaxis with Protonix 40 mg daily DVT prophylaxis with SCD and heparin subcu Level 3
[2018-09-14] MEDS: Heparin - SQ 10,000 UNITS/ML Vial SQ SCH ×2 (08:15→20:47)
[2018-09-14] MEDS: dilTIAZem 60 MG Tablet PO SCH ×4 (08:16→20:47)
[2018-09-14] MEDS: Pantoprazole Inj 40 MG Vial IV.PUSH SCH (08:16)
[2018-09-14] MEDS: Sodium Chloride 0.9% 2 ML Flush BID IV.FLUSH SCH (08:16)
[2018-09-14] MEDS: Budesonide-Formoterol 160/4.5 MCG 6 GM Inhaler INH SCH ×2 (08:17→20:48)
[2018-09-14] MEDS: MethylPREDNISolone Sod Succinate Inj 40 MG/ML Vial IV.PUSH SCH ×2 (09:32→21:32)
--- NOTE | 2018-09-14 12:55 | P.PNNP ---
Subjective Interval history: Dyspnea earlier, on NRB now. Physical Exam Vital signs: Vital Signs 09/13/18 13:00 09/13/18 14:00 09/13/18 15:00 Temperature Pulse Rate 91 H 76 78 Respiratory Rate 20 14 14 Blood Pressure Pulse Oximetry 87 L 95 96 09/13/18 15:40 09/13/18 16:00 09/13/18 17:00 Temperature Pulse Rate 77 92 H 93 H Respiratory Rate 14 21 25 H Blood Pressure 132/63 Pulse Oximetry 88 L 92 L 09/13/18 18:00 09/13/18 19:00 09/13/18 19:34 Temperature Pulse Rate 94 H 84 91 H Respiratory Rate 28 H 20 20 Blood Pressure Pulse Oximetry 87 L 92 L 09/13/18 19:37 09/13/18 20:00 09/13/18 21:00 Temperature 97.8 F Pulse Rate 94 H 91 H Respiratory Rate 23 20 Blood Pressure 141/64 H Pulse Oximetry 92 L 89 L 90 L 09/13/18 21:14 09/13/18 22:00 09/13/18 23:00 Temperature Pulse Rate 94 H 97 H 81 Respiratory Rate 32 H 25 H 21 Blood Pressure 141/64 H Pulse Oximetry 86 L 89 L 94 L 09/14/18 00:00 09/14/18 01:00 09/14/18 01:51 Temperature 98.0 F Pulse Rate 92 H 94 H 94 H Respiratory Rate 22 28 H 24 Blood Pressure 132/62 Pulse Oximetry 89 L 87 L 09/14/18 02:00 09/14/18 03:00 09/14/18 04:00 Temperature 98.1 F Pulse Rate 95 H 90 91 H Respiratory Rate 31 H 25 H 30 H Blood Pressure 126/62 Pulse Oximetry 91 L 89 L 85 L 09/14/18 05:00 09/14/18 06:00 09/14/18 06:22 Temperature Pulse Rate 88 88 121 H Respiratory Rate 29 H 29 H 37 H Blood Pressure 147/91 H Pulse Oximetry 87 L 85 L 83 L 09/14/18 07:00 09/14/18 07:01 09/14/18 07:33 Temperature Pulse Rate 88 87 Respiratory Rate 30 H 22 Blood Pressure 125/66 Pulse Oximetry 92 L 96 99 09/14/18 08:00 09/14/18 09:00 09/14/18 10:00 Temperature 97.6 F Pulse Rate 80 86 85 Respiratory Rate 18 27 H Blood Pressure 130/65 136/70 Pulse Oximetry 99 94 L 09/14/18 10:55 Temperature Pulse Rate 85 Respiratory Rate 25 H Blood Pressure Pulse Oximetry Intake & Output 09/13/18 09/14/18 09/14/18 18:59 06:59 18:59 Intake Total 1150 / 1150 390 / 390 Output Total 300 / 300 630 / 630 Balance 850 / 850 -240 / -240 Weight 106 kg Intake: IV 350 / 350 50 / 50 Azithromycin Inj 500 MG In NS 250 / 250 Inj 250 ML @ 250 mls/hr IV.SIG Q24H ZEKE Rx#:[id number] Zosyn 3.375 GM Premix 50 ML @ 100 / 100 50 / 50 100 mls/hr IV.SIG Q8H ZEKE Rx#: [id number] Oral 800 / 800 340 / 340 Output: Urine 300 / 300 630 / 630 Other: # Voids 3 # Bowel Movements 0 - Constitutional mild distress - Routine HEENT Exam Head: Present: normocephalic - Routine Neck Exam Present: supple - Routine Respiratory Exam Present: decreased breath sounds - Routine Cardiovascular Exam Present: RRR - Routine Abdominal Exam Present: soft - Routine Extremities Exam Present: edema - Routine Skin Exam Present: intact - Routine Neurological Exam Present: alert, oriented X3 - Detailed Neurological Exam: Coma Scale Eye Opening: Spontaneous - Routine Psychiatric Exam Present: normal affect Assessment and Plan - Assessment (1) Acute renal failure Code(s): N17.9 - Acute kidney failure, unspecified Status: Acute (2) COPD (chronic obstructive pulmonary disease) Code(s): J44.9 - Chronic obstructive pulmonary disease, unspecified Status: Acute (3) Pneumonia Code(s): J18.9 - Pneumonia, unspecified organism Status: Acute (4) Mood disorder due to known physiological condition with depressive features Code(s): F06.31 - Mood disorder due to known physiological condition with depressive features Status: Acute (5) Gout Code(s): M10.9 - Gout, unspecified Status: Acute (6) Hypertension Code(s): I10 - Essential (primary) hypertension Status: Acute - Plan Patient has acute tubular necrosis likely due to vancomycin levels are high Creatinine 2.7 -> 3 -> 3.2 930cc UOP/24 hours. Given lasix 40 IV earlier Ongoing peripheral edema Dyspnea earlier, now with non rebreather oxygen Will give bumex 2mg IV q8 hours, continue to monitor UOP IVFs held now, continue to monitor electrolytes and UOP.
--- NOTE | 2018-09-14 14:45 | P.PN ---
Subjective Interval history: SOB and on a NRB mask. he had low sats last night. Poor output. was given lasix. Physical Exam Vital signs: Vital Signs 09/13/18 15:00 09/13/18 15:40 09/13/18 16:00 Temperature Pulse Rate 78 77 92 H Respiratory Rate 14 14 21 Blood Pressure 132/63 Pulse Oximetry 96 88 L 09/13/18 17:00 09/13/18 18:00 09/13/18 19:00 Temperature Pulse Rate 93 H 94 H 84 Respiratory Rate 25 H 28 H 20 Blood Pressure Pulse Oximetry 92 L 87 L 92 L 09/13/18 19:34 09/13/18 19:37 09/13/18 20:00 Temperature 97.8 F Pulse Rate 91 H 94 H Respiratory Rate 20 23 Blood Pressure 141/64 H Pulse Oximetry 92 L 89 L 09/13/18 21:00 09/13/18 21:14 09/13/18 22:00 Temperature Pulse Rate 91 H 94 H 97 H Respiratory Rate 20 32 H 25 H Blood Pressure 141/64 H Pulse Oximetry 90 L 86 L 89 L 09/13/18 23:00 09/14/18 00:00 09/14/18 01:00 Temperature 98.0 F Pulse Rate 81 92 H 94 H Respiratory Rate 21 22 28 H Blood Pressure 132/62 Pulse Oximetry 94 L 89 L 87 L 09/14/18 01:51 09/14/18 02:00 09/14/18 03:00 Temperature Pulse Rate 94 H 95 H 90 Respiratory Rate 24 31 H 25 H Blood Pressure Pulse Oximetry 91 L 89 L 09/14/18 04:00 09/14/18 05:00 09/14/18 06:00 Temperature 98.1 F Pulse Rate 91 H 88 88 Respiratory Rate 30 H 29 H 29 H Blood Pressure 126/62 Pulse Oximetry 85 L 87 L 85 L 09/14/18 06:22 09/14/18 07:00 09/14/18 07:01 Temperature Pulse Rate 121 H 88 87 Respiratory Rate 37 H 30 H 22 Blood Pressure 147/91 H 125/66 Pulse Oximetry 83 L 92 L 96 09/14/18 07:33 09/14/18 08:00 09/14/18 09:00 Temperature 97.6 F Pulse Rate 80 86 Respiratory Rate 18 27 H Blood Pressure 130/65 136/70 Pulse Oximetry 99 99 94 L 09/14/18 10:00 09/14/18 10:01 09/14/18 10:55 Temperature Pulse Rate 85 86 85 Respiratory Rate 24 25 H 25 H Blood Pressure 138/61 Pulse Oximetry 89 L 86 L 09/14/18 11:00 09/14/18 11:01 09/14/18 12:00 Temperature 98.4 F Pulse Rate 88 89 90 Respiratory Rate 42 H 33 H 24 Blood Pressure 136/77 130/67 Pulse Oximetry 84 L 84 L 96 09/14/18 14:00 09/14/18 14:25 Temperature Pulse Rate 81 82 Respiratory Rate 22 Blood Pressure Pulse Oximetry Intake & Output 09/13/18 09/14/18 09/14/18 18:59 06:59 18:59 Intake Total 1150 / 1150 390 / 390 50 / 50 Output Total 300 / 300 630 / 630 Balance 850 / 850 -240 / -240 50 / 50 Weight 106 kg Intake: IV 350 / 350 50 / 50 50 / 50 Azithromycin Inj 500 MG In NS 250 / 250 Inj 250 ML @ 250 mls/hr IV.SIG Q24H ZEKE Rx#:[id number] Zosyn 3.375 GM Premix 50 ML @ 100 / 100 50 / 50 50 / 50 100 mls/hr IV.SIG Q8H ZEKE Rx#: [id number] Oral 800 / 800 340 / 340 Output: Urine 300 / 300 630 / 630 Other: # Voids 3 # Bowel Movements 0 Narrative: GENERAL: Well-nourished,Obese elderly W/M in mild distress SKIN: Warm and dry. HEAD: Normocephalic. EYES: No scleral icterus. No injection or drainage. NECK: Supple, trachea midline. No JVD or lymphadenopathy. CARDIOVASCULAR: Regular rate and rhythm without murmurs, gallops, or rubs. RESPIRATORY: Breath sounds diminished at bases. Wheezes and Crackles at bases. GASTROINTESTINAL: Abdomen soft, non-tender, nondistended. EXTREMITIES: 1+ edema of legs. NEUROLOGICAL: Awake, Non-focal. Moves all. Results - Labs CBC & Chem 7: 09/14/18 04:46 09/14/18 04:46 Laboratory Results - last 24 hr 09/13/18 09/14/18 09/14/18 17:54 00:27 04:46 WBC 13.5 H RBC 2.77 L Hgb 7.7 L Hct 22.5 L MCV 81.4 MCH 28.0 MCHC 34.4 RDW 16.7 Plt Count 228 MPV 7.0 Prelim Diff (Auto) Slide review pending Neut % (Auto) 93.3 H Lymph % (Auto) 3.3 L [place] % (Auto) 3.3 Eos % (Auto) 0.0 Baso % (Auto) 0.1 Neut # (Auto) 12.6 H Lymph # (Auto) 0.4 L [place] # (Auto) 0.4 Eos # (Auto) 0.0 Baso # (Auto) 0.0 WBC Differential Manual diff final Seg Neuts % (Manual) 89 H Band Neuts % (Manual) 5 Lymphocytes % (Manual) 3 L Monocytes % (Manual) 1 Metamyelocytes % (Man) 1 Myelocytes % (Man) 1 H Abs Neuts (Manual) 13.0 H Differential Comment . Platelet Estimate Normal Platelet Morphology Normal Puncture Site Patient Temperature O2 Saturation ABG pH ABG pCO2 ABG pO2 ABG HCO3 ABG O2 Content ABG Base Excess ABG Methemoglobin Cristian Test Hemoglobin Carboxyhemoglobin O2 Delivery Device Liter Flow Inspired O2 Critical Value Sodium Potassium Chloride Carbon Dioxide Anion Gap BUN Creatinine Estimated GFR POC Glucose 273 H 234 H Random Glucose Calcium Phosphorus Magnesium Total Bilirubin AST ALT Alkaline Phosphatase Total Protein Albumin 09/14/18 09/14/18 09/14/18 04:46 05:27 06:47 WBC RBC Hgb Hct MCV MCH MCHC RDW Plt Count MPV Prelim Diff (Auto) Neut % (Auto) Lymph % (Auto) [place] % (Auto) Eos % (Auto) Baso % (Auto) Neut # (Auto) Lymph # (Auto) [place] # (Auto) Eos # (Auto) Baso # (Auto) WBC Differential Seg Neuts % (Manual) Band Neuts % (Manual) Lymphocytes % (Manual) Monocytes % (Manual) Metamyelocytes % (Man) Myelocytes % (Man) Abs Neuts (Manual) Differential Comment Platelet Estimate Platelet Morphology Puncture Site Right radial Patient Temperature 98.6 O2 Saturation 95 ABG pH 7.37 L ABG pCO2 43 H ABG pO2 98 ABG HCO3 24 ABG O2 Content 11.2 L ABG Base Excess -0.7 ABG Methemoglobin 1.4 Cristian Test Present Hemoglobin 8.3 L Carboxyhemoglobin 1.2 O2 Delivery Device Non-rebreathing mask Liter Flow 15.00 Inspired O2 100 Critical Value No Sodium 139 Potassium 3.9 Chloride 103 Carbon Dioxide 24.7 Anion Gap 11 BUN 66 H Creatinine 3.25 H Estimated GFR 19 L POC Glucose 193 H Random Glucose 173 H Calcium 8.4 L Phosphorus 2.9 Magnesium 2.5 Total Bilirubin 0.6 AST 66 H ALT 59 Alkaline Phosphatase 61 Total Protein 6.4 Albumin 2.7 L 09/14/18 11:18 WBC RBC Hgb Hct MCV MCH MCHC RDW Plt Count MPV Prelim Diff (Auto) Neut % (Auto) Lymph % (Auto) [place] % (Auto) Eos % (Auto) Baso % (Auto) Neut # (Auto) Lymph # (Auto) [place] # (Auto) Eos # (Auto) Baso # (Auto) WBC Differential Seg Neuts % (Manual) Band Neuts % (Manual) Lymphocytes % (Manual) Monocytes % (Manual) Metamyelocytes % (Man) Myelocytes % (Man) Abs Neuts (Manual) Differential Comment Platelet Estimate Platelet Morphology Puncture Site Patient Temperature O2 Saturation ABG pH ABG pCO2 ABG pO2 ABG HCO3 ABG O2 Content ABG Base Excess ABG Methemoglobin Cristian Test Hemoglobin Carboxyhemoglobin O2 Delivery Device Liter Flow Inspired O2 Critical Value Sodium Potassium Chloride Carbon Dioxide Anion Gap BUN Creatinine Estimated GFR POC Glucose 242 H Random Glucose Calcium Phosphorus Magnesium Total Bilirubin AST ALT Alkaline Phosphatase Total Protein Albumin Microbiology 09/12/18 09:40 Sputum - Expectorated Sputum Gram Stain - Final 09/12/18 09:40 Sputum - Expectorated Sputum Sputum Culture - Final Heavy growth normal respiratory zeb - Imaging Impressions Chest X-Ray 09/14/18 00:00 CONCLUSION: Bilateral parenchymal consolidation. 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 Acute hypoxemic respiratory insufficiency. 2. Left upper lobe pneumonia per CT chest. 3. B/l pulm infiltrates 4. Acute kidney injury. 5. Anemia. 6. Coronary artery disease. 7. Diabetes mellitus. 8. Hypertension. 9. Chronic obstructive pulmonary disease. 10. Obesity. Plan Pulm: 1)Continue with NRB mask and wean to N/C 5 L Bronchodilators, and Symbicort 160/4.5 two puffs b.i.d. solumedrol to 40 mg BID Will use BIPAP 12/ 5 cm at HS and PRN if sats <92 2) Cont Albumin and Cont Bumex 1 mg IV per Renal. Rpt CXR, BMP, CBC 3) Cont Antibiotics Zithromax and Zosyn 4) Duoneb nebs qid. 5) IS at bedside q3h
[2018-09-14] MEDS: Azithromycin Inj 500 MG in Sodium Chlor 0.9% Inj 250 ML IV.SIG SCH (17:18)
[2018-09-14 19:53] LABS: ABG Base Excess -0.5 mmol/L (-2-2); ABG PCO2 42 mmHg (38-42); ABG PO2 77 mmHG (61-120)
[2018-09-14] MEDS: QUEtiapine 25 MG Tablet PO SCH (20:47)
[2018-09-15] MEDS: Piperacil/Tazo 3.375 GM Premix 50 ML IV.SIG SCH ×3 (01:53→19:24)
[2018-09-15] MEDS: Chlorhexidine Gluconate 2% 1 Pack (2 Cloths) TOPICAL SCH (04:08)
--- NOTE | 2018-09-15 05:31 | XR ---
EXAM DATE: 09/15/2018 5:25 AM EST AGE/SEX: 78 years / Male INDICATIONS: Shortness of breath, possible pulmonary disease. CLINICAL DATA: This is the patient's subsequent encounter. Patient reports that signs and symptoms h ave been present for 2 days and indicates a pain score of 0/10. MEDICAL/SURGICAL HISTORY: Congestive heart failure. Diabetes. Hypertension. None. COMPARISON: [facility], CHEST 1V SINGLE AP, 09/14/2018. . FINDINGS: A single AP view of the chest demonstrates no interval change. Diffuse bilateral parenchymal consolid ations again seen. No effusions. Heart is at the upper limits of normal in terms of size. CONCLUSION: Unchanged diffuse bilateral pulmonary infiltrates. Electronically signed by: Mario Ro MD 09/15/2018 5:29 AM EST
[2018-09-15] MEDS: Insulin NovoLOG Aspart Correctional Sugar Inj SQ SCH ×4 (05:53→23:52)
[2018-09-15] MEDS: Heparin - SQ 10,000 UNITS/ML Vial SQ SCH ×2 (08:17→20:40)
[2018-09-15] MEDS: Pantoprazole Inj 40 MG Vial IV.PUSH SCH (08:17)
[2018-09-15] MEDS: dilTIAZem 60 MG Tablet PO SCH ×4 (08:17→20:40)
[2018-09-15] MEDS: Budesonide-Formoterol 160/4.5 MCG 6 GM Inhaler INH SCH ×2 (08:18→20:41)
[2018-09-15 08:22] LABS: Baso % (Auto) 0.1 % (0.0-2.0); Eos % (Auto) 0.1 % (0.0-4.0); Hematocrit 24.6 % (39.0-51.0); Hemoglobin 8.4 gm/dL (13.0-17.0); Lymph # (Auto) 0.5 th/mm3 (1.0-4.8); Lymph % (Auto) 3.4 % (9.0-44.0); Mean Corpuscular HGB Conc 34.3 % (32.0-36.0); Mean Corpuscular Hemoglobin 28.2 pg (27.0-34.0); Mean Corpuscular Volume 82.3 fL (80.0-100.0); Mean Platelet Volume 7.2 fL (7.0-11.0); Mono # (Auto) 0.4 th/mm3 (0.0-0.9); Mono % (Auto) 2.5 % (0.0-8.0); Neut # (Auto) 13.4 th/mm3 (1.8-7.7); Neut % (Auto) 93.9 % (16.0-70.0); Platelet Count 265 th/mm3 (150-450); Red Blood Count 2.99 mil/mm3 (4.50-5.90); White Blood Count 14.3 th/mm3 (4.0-11.0)
[2018-09-15 08:36] LABS: Albumin 2.9 g/dL (3.4-5.0); Anion Gap 13 meq/L (5-15); Aspartate Aminotransferase 100 U/L (15-37); Blood Urea Nitrogen 68 mg/dL (7-18); Calcium 8.6 mg/dL (8.5-10.1); Carbon Dioxide 24.4 meq/L (21.0-32.0); Chloride 103 meq/L (98-107); Glomerular Filtration Rate 18 mL/min (>89); Glucose,Random 197 mg/dL (74-106); Potassium 3.6 meq/L (3.5-5.1); Sodium 140 meq/L (136-145)
[2018-09-15 08:37] LABS: Alanine Aminotransferase 114 U/L (12-78)
[2018-09-15 08:39] LABS: Alkaline Phosphatase 66 U/L (45-117); Total Protein 6.8 g/dL (6.4-8.2)
[2018-09-15 09:17] LABS: Lymphocytes 4 % (9-44); Metamyelocytes 4 % (0-1); Monocytes 1 % (0-8); Myelocytes 1 % (0-0); Platelet Estimate Normal (Normal)
[2018-09-15 09:18] LABS: Platelet Morphology Normal (Normal)
--- NOTE | 2018-09-15 10:04 | P.PNNP ---
Subjective Interval history: feels slghtly better today, on high flow nasal cannula Physical Exam Vital signs: Vital Signs 09/14/18 10:00 09/14/18 10:01 09/14/18 10:55 Temperature Pulse Rate 85 86 85 Respiratory Rate 24 25 H 25 H Blood Pressure 138/61 Pulse Oximetry 89 L 86 L 09/14/18 11:00 09/14/18 11:01 09/14/18 12:00 Temperature 98.4 F Pulse Rate 88 89 90 Respiratory Rate 42 H 33 H 24 Blood Pressure 136/77 130/67 Pulse Oximetry 84 L 84 L 96 09/14/18 13:00 09/14/18 13:01 09/14/18 14:00 Temperature Pulse Rate 87 88 81 Respiratory Rate 27 H 25 H 22 Blood Pressure 126/58 L 131/62 Pulse Oximetry 92 L 97 97 09/14/18 14:25 09/14/18 15:00 09/14/18 16:00 Temperature 97.1 F L Pulse Rate 82 86 85 Respiratory Rate 22 30 H 21 Blood Pressure 130/66 140/67 Pulse Oximetry 97 98 09/14/18 17:00 09/14/18 18:00 09/14/18 19:00 Temperature Pulse Rate 93 H 85 91 H Respiratory Rate 25 H 22 27 H Blood Pressure 143/72 H 140/89 133/73 Pulse Oximetry 96 98 94 L 09/14/18 20:00 09/14/18 20:10 09/14/18 21:00 Temperature 97.9 F Pulse Rate 82 92 H 84 Respiratory Rate 21 26 H 21 Blood Pressure 143/66 H 134/74 Pulse Oximetry 100 95 97 09/14/18 22:00 09/14/18 23:00 09/14/18 23:31 Temperature Pulse Rate 80 85 85 Respiratory Rate 18 22 26 H Blood Pressure 132/61 148/63 H Pulse Oximetry 99 92 L 09/15/18 00:00 09/15/18 01:00 09/15/18 02:00 Temperature 98.3 F Pulse Rate 93 H 96 H 85 Respiratory Rate 23 21 21 Blood Pressure 132/61 132/64 127/67 Pulse Oximetry 92 L 93 L 97 09/15/18 03:00 09/15/18 04:00 09/15/18 05:00 Temperature 98.4 F Pulse Rate 85 76 79 Respiratory Rate 15 14 16 Blood Pressure 147/65 H 135/64 135/68 Pulse Oximetry 99 100 99 09/15/18 06:00 09/15/18 07:00 09/15/18 07:29 Temperature Pulse Rate 78 93 H 90 Respiratory Rate 20 21 20 Blood Pressure 145/74 H 141/71 H Pulse Oximetry 100 93 L 95 09/15/18 08:00 09/15/18 08:33 09/15/18 09:00 Temperature 97.7 F Pulse Rate 95 H 90 Respiratory Rate 21 24 Blood Pressure 143/69 H 139/71 Pulse Oximetry 88 L 95 91 L Intake & Output 09/14/18 09/15/18 09/15/18 18:59 06:59 18:59 Intake Total 530 / 530 1070 / 1070 Output Total 200 / 200 Balance 330 / 330 1070 / 1070 Weight 104.3 kg Intake: IV 50 / 50 350 / 350 Azithromycin Inj 500 MG In NS 250 / 250 Inj 250 ML @ 250 mls/hr IV.SIG Q24H ZEKE Rx#:[id number] Zosyn 3.375 GM Premix 50 ML @ 50 / 50 100 / 100 100 mls/hr IV.SIG Q8H ZEKE Rx#: [id number] Oral 480 / 480 720 / 720 Output: Urine 200 / 200 Other: # Voids 2 # Incontinent Voids 1 8 # Bowel Movements 0 - Constitutional no acute distress - Routine HEENT Exam Head: Present: normocephalic Eye: Present: EOMI ENT: Present: mucous membranes moist - Routine Neck Exam Present: supple - Routine Respiratory Exam Present: decreased breath sounds - Routine Cardiovascular Exam Present: RRR - Routine Abdominal Exam Present: soft - Routine Skin Exam Present: intact - Routine Neurological Exam Present: alert, oriented X3 - Detailed Neurological Exam: Coma Scale Eye Opening: Spontaneous - Routine Psychiatric Exam Present: normal affect Assessment and Plan - Assessment (1) Acute renal failure Code(s): N17.9 - Acute kidney failure, unspecified Status: Acute (2) COPD (chronic obstructive pulmonary disease) Code(s): J44.9 - Chronic obstructive pulmonary disease, unspecified Status: Acute (3) Pneumonia Code(s): J18.9 - Pneumonia, unspecified organism Status: Acute (4) Mood disorder due to known physiological condition with depressive features Code(s): F06.31 - Mood disorder due to known physiological condition with depressive features Status: Acute (5) Gout Code(s): M10.9 - Gout, unspecified Status: Acute (6) Hypertension Code(s): I10 - Essential (primary) hypertension Status: Acute - Plan Patient has acute tubular necrosis likely due to vancomycin levels are high Creatinine 2.7 -> 3 -> 3.2 -> 3.3 200cc UOP/24 hours recorded, however patient incontinent and UOP not fully recorded [place] in place now Started on bumex 2mg IV q8 yesterday Ongoing peripheral edema Dyspnea yesteday, was on non rebreather oxygen yesterday and no on high flow nasal cannula No need for dialysis at this point - monitor UOP and respiratory status Labs in AM
[2018-09-15] MEDS: MethylPREDNISolone Sod Succinate Inj 40 MG/ML Vial IV.PUSH SCH ×2 (10:10→20:59)
--- NOTE | 2018-09-15 14:19 | P.PNCC ---
Subjective Subjective Remarks/Hospital Course: Patient is a 78-year-old male with a past medical history of ? COPD, hypertension, diabetes mellitus, coronary artery disease and gout. He was admitted to inpatient medication psych on 08/17/2018 for suicidal ideation and acute kidney injury. He was found to have a creatinine of 1.64. During his hospital course, the patient was seen by hospitalist service. He had a chest x- ray on 08/19/2018. At that time it showed mild basilar opacity, probably subsegmental atelectasis with trace pleural fluid. Then, he had a CT scan of the chest on 09/07/2018 which showed suspected left hilar mass, mild congestive heart failure with small bilateral pleural effusions, left upper lobe pneumonia and focal atypical appearing infiltrate in the right middle lobe with dependent atelectasis of both lower lobes. He was started on broad-spectrum antibiotics. The patient had a V/Q scan on 09/08/2018 which showed a low probability for pulmonary embolism. Helicat was called for increased O2 requirements and the patient was subsequently transferred to [facility] [place], [place] and Critical Care Medicine was consulted for critical care management. When seen, the patient was on partial nonrebreather mask with a saturation of 100%. Blood pressure 151/70 with a pulse of 89. The patient states that he quit smoking over 20 years ago. He does not use any inhalers or nebulizers at home. He denies any nausea, vomiting or abdominal pain. 09/11 Patient is lying in bed in NAD. Afebrile. 09/12 Patient is lying in bed in NAD. On 4L oxygen. Afebrile. Renal function worse today with Cr: 2.70 from 1.81 09/13 Patient is lying in bed in NAD. Afebrile, Renal function is worsening with Cr: 3.04 from 2.70 09/14 Patient dropped his sats overnight placed on partial rebreather, CXR this morning showed b/l pulm infiltrates. Given Lasix 40mg IV x1. Afebrile. Subjective 09/15: Afebrile. Lying in bed in no acute distress. Currently on high flow at 90% nasal cannula. Objective Vital Signs / I&O: Vital Signs 09/14/18 14:25 09/14/18 15:00 09/14/18 16:00 Temperature 97.1 F L Pulse Rate 82 86 85 Respiratory Rate 22 30 H 21 Blood Pressure 130/66 140/67 Pulse Oximetry 97 98 09/14/18 17:00 09/14/18 18:00 09/14/18 19:00 Temperature Pulse Rate 93 H 85 91 H Respiratory Rate 25 H 22 27 H Blood Pressure 143/72 H 140/89 133/73 Pulse Oximetry 96 98 94 L 09/14/18 20:00 09/14/18 20:10 09/14/18 21:00 Temperature 97.9 F Pulse Rate 82 92 H 84 Respiratory Rate 21 26 H 21 Blood Pressure 143/66 H 134/74 Pulse Oximetry 100 95 97 09/14/18 22:00 09/14/18 23:00 09/14/18 23:31 Temperature Pulse Rate 80 85 85 Respiratory Rate 18 22 26 H Blood Pressure 132/61 148/63 H Pulse Oximetry 99 92 L 09/15/18 00:00 09/15/18 01:00 09/15/18 02:00 Temperature 98.3 F Pulse Rate 93 H 96 H 85 Respiratory Rate 23 21 21 Blood Pressure 132/61 132/64 127/67 Pulse Oximetry 92 L 93 L 97 09/15/18 03:00 09/15/18 04:00 09/15/18 05:00 Temperature 98.4 F Pulse Rate 85 76 79 Respiratory Rate 15 14 16 Blood Pressure 147/65 H 135/64 135/68 Pulse Oximetry 99 100 99 09/15/18 06:00 09/15/18 07:00 09/15/18 07:29 Temperature Pulse Rate 78 93 H 90 Respiratory Rate 20 21 20 Blood Pressure 145/74 H 141/71 H Pulse Oximetry 100 93 L 95 09/15/18 08:00 09/15/18 08:33 09/15/18 09:00 Temperature 97.7 F Pulse Rate 95 H 90 Respiratory Rate 21 24 Blood Pressure 143/69 H 139/71 Pulse Oximetry 88 L 95 91 L 09/15/18 10:00 09/15/18 11:00 09/15/18 11:16 Temperature Pulse Rate 87 89 85 Respiratory Rate 25 H 21 24 Blood Pressure 137/63 144/67 H Pulse Oximetry 85 L 89 L 09/15/18 12:00 Temperature 98.1 F Pulse Rate 88 Respiratory Rate 18 Blood Pressure 153/71 H Pulse Oximetry 99 Intake & Output 09/14/18 09/15/18 09/15/18 18:59 06:59 18:59 Intake Total 530 / 530 1070 / 1070 Output Total 200 / 200 Balance 330 / 330 1070 / 1070 Weight 104.3 kg Intake: IV 50 / 50 350 / 350 Azithromycin Inj 500 MG In NS 250 / 250 Inj 250 ML @ 250 mls/hr IV.SIG Q24H ZEKE Rx#:[id number] Zosyn 3.375 GM Premix 50 ML @ 50 / 50 100 / 100 100 mls/hr IV.SIG Q8H ZEKE Rx#: [id number] Oral 480 / 480 720 / 720 Output: Urine 200 / 200 Other: # Voids 2 # Incontinent Voids 1 8 # Bowel Movements 0 Result Diagrams: 09/15/18 07:20 09/15/18 07:20 Other Results: Microbiology 09/12/18 09:40 Sputum - Expectorated Sputum Gram Stain - Final 09/12/18 09:40 Sputum - Expectorated Sputum Sputum Culture - Final Heavy growth normal respiratory zeb 09/10/18 21:25 Urine - Clean Catch Urine Streptococcus pneumoniae Antigen ( M - Final Presumptive negative for streptococcus pneumoniae antigen, suggesting no current or recent infection. Infection due to Streptococcus pneumoniae cannot be ruled out since the antigen present in the sample may be below the detection limit of the test. 09/10/18 21:25 Urine - Clean Catch Urine Legionella Antigen - Final Presumptive negative for Legionella pneumophila serogroup 1 antigen in urine, suggesting no recent or recurrent infection. Infection due to Legionella cannot be ruled out since other serogroups and species may cause disease, antigen may not be present in urine in early infection, and the level of antigen present in the urine may be below the detection limit of the test. Imaging: Chest X-Ray 09/10/18 16:26 CONCLUSION: New diffuse bilateral interstitial and airspace disease throughout both lung rendon suggestive of pulmonary edema. Abdomen/Bladder Ultrasound 09/11/18 00:00 CONCLUSION: 1. Increased renal cortical echogenicity characteristic of chronic parenchymal disease. 2. No evidence of hydronephrosis. 3. No suspicious masses identified. Chest X-Ray 09/11/18 07:41 CONCLUSION: 1. Cardiomegaly with pulmonary vascular congestion. 2. Improved aeration in the right lower lung zone. 3. Persistent small left pleural effusion and associated left lower lobe airspace consolidation. Chest X-Ray 09/12/18 08:47 CONCLUSION: No appreciable change. Chest X-Ray 09/14/18 00:00 CONCLUSION: Bilateral parenchymal consolidation. Chest X-Ray 09/15/18 00:00 CONCLUSION: Unchanged diffuse bilateral pulmonary infiltrates. Objective Remarks: GENERAL: Patient is 78 yo lying in bed in NAD on nasal cannula SKIN: Warm and dry. HEAD: Normocephalic. EYES: No scleral icterus. No injection or drainage. NECK: Supple, trachea midline. No JVD or lymphadenopathy. CARDIOVASCULAR: Regular rate and rhythm without murmurs, gallops, or rubs. RESPIRATORY: Breath sounds equal bilaterally. Coarse BS, crackles GASTROINTESTINAL: Abdomen soft, non-tender, nondistended. MUSCULOSKELETAL: No cyanosis, or edema. Neuro: Awake and alert Assessment and Plan - Assessment and Plan Plan: 1. Acute hypoxemic respiratory insufficiency. 2. Left upper lobe pneumonia pr CT chest. 3. B/l pulm infiltrates 4. Acute kidney injury. 5. Anemia. 6. Coronary artery disease. 7. Diabetes mellitus. 8. Hypertension. 9. Chronic obstructive pulmonary disease. 10. Elevated BMI. 11. Leukocytosis 12. Transaminitis Plan Neuro: Monitor neuro status and avoid any sedatives. Psych is following. Currently on ketamine 25 mg at night. Holding home medications of gabapentin 10 mg twice daily, sertraline 50 mg daily. Pulm:Wean down oxygen as joyce and maintain sats>92%. Bronchodilators with albuterol/ipratropium aerosols every 4 hours with albuterol aerosols every 2 hours as needed dyspnea, Solu-Medrol 40 mg IVQ8, Symbicort 160/4.5 two puffs b.i.d. Pulm is following-Dr. Garcia CXR today- b/l pulm infiltrates If there is any worsening any resp status will proceed with intubation. CV: on Cardizem 60 mg QID at home hold medications of amlodipine 5 mg daily and lisinopril 40 mg twice daily Monitor HR and BP keep MAP>65mmHg Echo on 08/30/2018 EF of 50% to 55%. PA pressure 32 mmHg. Renal/FEN/: Monitor renal function, I's and O's, and avoid nephrotoxins. Renal US: No masses, no hydronephrosis Renal function worse today with Cr: 3.25 from 3.04 Renal is following- Dr. Krueger ARF likely due to ATN 2nd Vanco tox. D/c IVF given furosemide 40mg IV x1 09/14 and placed on bumetanide 2mg IV Q8 per renal. On this medication 1 mg daily at home with potassium supplementation 15 mmol potassium phosphorus IV x1 now. GI: on pantoprazole 40 mg IV daily for GI prophylaxis. On cardiac diet ID: Continue abx Azithromycin, piperacillin/tazobactam Monitor for signs of infection( fever and WBC). 09/12: normal resp zeb strep pneumonia and legionella urinary antigen negative Heme: Monitor CBC. Endo: SSI with aspart insulin to medium scale with Accu-Chek for glycemic Continue allopurinol 100 mg daily GI prophylaxis with P pantoprazole 40 mg daily DVT prophylaxis with SCD and heparin subcu Level 3
[2018-09-15] MEDS ORDERED: Sodium Chloride 0.65% Nasal Spray 45 ML Bottle EACH NARE PRN (14:27)
--- NOTE | 2018-09-15 16:30 | P.PN ---
Subjective Interval history: High flow O2 at 90 %. talking more Has some cough and wheezing. Physical Exam Vital signs: Vital Signs 09/14/18 17:00 09/14/18 18:00 09/14/18 19:00 Temperature Pulse Rate 93 H 85 91 H Respiratory Rate 25 H 22 27 H Blood Pressure 143/72 H 140/89 133/73 Pulse Oximetry 96 98 94 L 09/14/18 20:00 09/14/18 20:10 09/14/18 21:00 Temperature 97.9 F Pulse Rate 82 92 H 84 Respiratory Rate 21 26 H 21 Blood Pressure 143/66 H 134/74 Pulse Oximetry 100 95 97 09/14/18 22:00 09/14/18 23:00 09/14/18 23:31 Temperature Pulse Rate 80 85 85 Respiratory Rate 18 22 26 H Blood Pressure 132/61 148/63 H Pulse Oximetry 99 92 L 09/15/18 00:00 09/15/18 01:00 09/15/18 02:00 Temperature 98.3 F Pulse Rate 93 H 96 H 85 Respiratory Rate 23 21 21 Blood Pressure 132/61 132/64 127/67 Pulse Oximetry 92 L 93 L 97 09/15/18 03:00 09/15/18 04:00 09/15/18 05:00 Temperature 98.4 F Pulse Rate 85 76 79 Respiratory Rate 15 14 16 Blood Pressure 147/65 H 135/64 135/68 Pulse Oximetry 99 100 99 09/15/18 06:00 09/15/18 07:00 09/15/18 07:29 Temperature Pulse Rate 78 93 H 90 Respiratory Rate 20 21 20 Blood Pressure 145/74 H 141/71 H Pulse Oximetry 100 93 L 95 09/15/18 08:00 09/15/18 08:33 09/15/18 09:00 Temperature 97.7 F Pulse Rate 95 H 90 Respiratory Rate 21 24 Blood Pressure 143/69 H 139/71 Pulse Oximetry 88 L 95 91 L 09/15/18 10:00 09/15/18 11:00 09/15/18 11:16 Temperature Pulse Rate 87 89 85 Respiratory Rate 25 H 21 24 Blood Pressure 137/63 144/67 H Pulse Oximetry 85 L 89 L 09/15/18 12:00 09/15/18 14:00 09/15/18 15:17 Temperature 98.1 F Pulse Rate 88 72 80 Respiratory Rate 18 21 Blood Pressure 153/71 H Pulse Oximetry 99 Intake & Output 09/14/18 09/15/18 09/15/18 18:59 06:59 18:59 Intake Total 530 / 530 1070 / 1070 Output Total 200 / 200 Balance 330 / 330 1070 / 1070 Weight 104.3 kg Intake: IV 50 / 50 350 / 350 Azithromycin Inj 500 MG In NS 250 / 250 Inj 250 ML @ 250 mls/hr IV.SIG Q24H ZEKE Rx#:[id number] Zosyn 3.375 GM Premix 50 ML @ 50 / 50 100 / 100 100 mls/hr IV.SIG Q8H ZEKE Rx#: [id number] Oral 480 / 480 720 / 720 Output: Urine 200 / 200 Other: # Voids 2 # Incontinent Voids 1 8 # Bowel Movements 0 Narrative: GENERAL: Well-nourished,Obese elderly W/M in mild distress SKIN: Warm and dry. HEAD: Normocephalic. EYES: No scleral icterus. No injection or drainage. NECK: Supple, trachea midline. No JVD or lymphadenopathy. CARDIOVASCULAR: Regular rate and rhythm without murmurs, gallops, or rubs. RESPIRATORY: Breath sounds diminished at bases.Has Wheezes and Crackles at bases. GASTROINTESTINAL: Abdomen soft, non-tender, nondistended. EXTREMITIES: 1+ edema of legs. NEUROLOGICAL: Awake, Non-focal. Moves all. Results - Labs CBC & Chem 7: 09/15/18 07:20 09/15/18 07:20 Laboratory Results - last 24 hr 09/14/18 09/14/18 09/14/18 17:33 19:45 23:25 WBC RBC Hgb Hct MCV MCH MCHC RDW Plt Count MPV Prelim Diff (Auto) Neut % (Auto) Lymph % (Auto) Shannon % (Auto) Eos % (Auto) Baso % (Auto) Neut # (Auto) Lymph # (Auto) Shannon # (Auto) Eos # (Auto) Baso # (Auto) WBC Differential Seg Neuts % (Manual) Band Neuts % (Manual) Lymphocytes % (Manual) Monocytes % (Manual) Metamyelocytes % (Man) Myelocytes % (Man) Abs Neuts (Manual) Differential Comment Platelet Estimate Platelet Morphology Puncture Site Right radial Patient Temperature 98.6 O2 Saturation 93 ABG pH 7.37 L ABG pCO2 42 ABG pO2 77 ABG HCO3 24 ABG O2 Content 12.8 ABG Base Excess -0.5 ABG Methemoglobin 1.7 Cristian Test Present Hemoglobin 9.7 L Carboxyhemoglobin 1.0 O2 Delivery Device Partial-rebreather Liter Flow 15.00 Critical Value No Sodium Potassium Chloride Carbon Dioxide Anion Gap BUN Creatinine Estimated GFR POC Glucose 199 H 263 H Random Glucose Calcium Total Bilirubin AST ALT Alkaline Phosphatase Total Protein Albumin 09/15/18 09/15/18 09/15/18 05:48 07:20 07:20 WBC 14.3 H RBC 2.99 L Hgb 8.4 L Hct 24.6 L MCV 82.3 MCH 28.2 MCHC 34.3 RDW 17.0 Plt Count 265 MPV 7.2 Prelim Diff (Auto) Slide review pending Neut % (Auto) 93.9 H Lymph % (Auto) 3.4 L Shannon % (Auto) 2.5 Eos % (Auto) 0.1 Baso % (Auto) 0.1 Neut # (Auto) 13.4 H Lymph # (Auto) 0.5 L Shannon # (Auto) 0.4 Eos # (Auto) 0.0 Baso # (Auto) 0.0 WBC Differential Manual diff final Seg Neuts % (Manual) 88 H Band Neuts % (Manual) 2 Lymphocytes % (Manual) 4 L Monocytes % (Manual) 1 Metamyelocytes % (Man) 4 H Myelocytes % (Man) 1 H Abs Neuts (Manual) 13.6 H Differential Comment . Platelet Estimate Normal Platelet Morphology Normal Puncture Site Patient Temperature O2 Saturation ABG pH ABG pCO2 ABG pO2 ABG HCO3 ABG O2 Content ABG Base Excess ABG Methemoglobin Cristian Test Hemoglobin Carboxyhemoglobin O2 Delivery Device Liter Flow Critical Value Sodium 140 Potassium 3.6 Chloride 103 Carbon Dioxide 24.4 Anion Gap 13 BUN 68 H Creatinine 3.35 H Estimated GFR 18 L POC Glucose 216 H Random Glucose 197 H Calcium 8.6 Total Bilirubin 0.8 AST 100 H ALT 114 H Alkaline Phosphatase 66 Total Protein 6.8 Albumin 2.9 L 09/15/18 11:35 WBC RBC Hgb Hct MCV MCH MCHC RDW Plt Count MPV Prelim Diff (Auto) Neut % (Auto) Lymph % (Auto) Shannon % (Auto) Eos % (Auto) Baso % (Auto) Neut # (Auto) Lymph # (Auto) Shannon # (Auto) Eos # (Auto) Baso # (Auto) WBC Differential Seg Neuts % (Manual) Band Neuts % (Manual) Lymphocytes % (Manual) Monocytes % (Manual) Metamyelocytes % (Man) Myelocytes % (Man) Abs Neuts (Manual) Differential Comment Platelet Estimate Platelet Morphology Puncture Site Patient Temperature O2 Saturation ABG pH ABG pCO2 ABG pO2 ABG HCO3 ABG O2 Content ABG Base Excess ABG Methemoglobin Cristian Test Hemoglobin Carboxyhemoglobin O2 Delivery Device Liter Flow Critical Value Sodium Potassium Chloride Carbon Dioxide Anion Gap BUN Creatinine Estimated GFR POC Glucose 267 H Random Glucose Calcium Total Bilirubin AST ALT Alkaline Phosphatase Total Protein Albumin Microbiology 09/12/18 09:40 Sputum - Expectorated Sputum Gram Stain - Final 09/12/18 09:40 Sputum - Expectorated Sputum Sputum Culture - Final Heavy growth normal respiratory zeb - Imaging Impressions Chest X-Ray 09/15/18 00:00 CONCLUSION: Unchanged diffuse bilateral pulmonary infiltrates. 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 Acute hypoxemic respiratory insufficiency. 2. Left upper lobe pneumonia per CT chest. 3. B/l pulm infiltrates 4. Acute kidney injury. 5. Anemia. 6. Coronary artery disease. 7. Diabetes mellitus. 8. Hypertension. 9. Chronic obstructive pulmonary disease. 10. Obesity. Plan Pulm: 1)Continue with High flow N/C 8l and FIo2 70 % Bronchodilators, and Symbicort 160/4.5 two puffs b.i.d. solumedrol IV 40 mg BID Will use BIPAP 12/ 5 cm at HS and PRN if sats <92 2) Cont Albumin and Cont Bumex 1 mg IV per Renal. Rpt CXR, BMP, CBC 3) Cont Antibiotics Zithromax and Zosyn 4) Duoneb nebs qid. 5) IS at bedside q3h
[2018-09-15] MEDS: Azithromycin Inj 500 MG in Sodium Chlor 0.9% Inj 250 ML IV.SIG SCH (19:25)
[2018-09-15] MEDS: QUEtiapine 25 MG Tablet PO SCH (20:41)
[2018-09-16] MEDS: Piperacil/Tazo 3.375 GM Premix 50 ML IV.SIG SCH ×3 (01:14→17:31)
--- NOTE | 2018-09-16 05:42 | XR ---
EXAM DATE: 09/16/2018 5:22 AM EST AGE/SEX: 78 years / Male INDICATIONS: Shortness of breath, possible pulmonary disease. CLINICAL DATA: This is the patient's subsequent encounter. Patient reports that signs and symptoms h ave been present for 3 days and indicates a pain score of 0/10. MEDICAL/SURGICAL HISTORY: Congestive heart failure. Diabetes. Hypertension. None. COMPARISON: [facility] [place], CHEST 1V SINGLE AP, 09/15/2018. . FINDINGS: Single AP view the chest. Prominent bilateral upper lung pulmonary parenchymal opacity. Patchy bilate ral lower lung zone pulmonary opacity. Cardiomediastinal silhouette is unchanged. CONCLUSION: No significant interval change with persistent prominent bilateral upper lung zone opacity. Electronically signed by: Oli Garcia MD 09/16/2018 5:41 AM EST
--- NOTE | 2018-09-16 07:27 | P.PNCC ---
Subjective Subjective Remarks/Hospital Course: Patient is a 78-year-old male with a past medical history of ? COPD, hypertension, diabetes mellitus, coronary artery disease and gout. He was admitted to inpatient medication psych on 08/17/2018 for suicidal ideation and acute kidney injury. He was found to have a creatinine of 1.64. During his hospital course, the patient was seen by hospitalist service. He had a chest x- ray on 08/19/2018. At that time it showed mild basilar opacity, probably subsegmental atelectasis with trace pleural fluid. Then, he had a CT scan of the chest on 09/07/2018 which showed suspected left hilar mass, mild congestive heart failure with small bilateral pleural effusions, left upper lobe pneumonia and focal atypical appearing infiltrate in the right middle lobe with dependent atelectasis of both lower lobes. He was started on broad-spectrum antibiotics. The patient had a V/Q scan on 09/08/2018 which showed a low probability for pulmonary embolism. Helicat was called for increased O2 requirements and the patient was subsequently transferred to [facility] [place] and Critical Care Medicine was consulted for critical care management. When seen, the patient was on partial nonrebreather mask with a saturation of 100%. Blood pressure 151/70 with a pulse of 89. The patient states that he quit smoking over 20 years ago. He does not use any inhalers or nebulizers at home. He denies any nausea, vomiting or abdominal pain. 09/11 Patient is lying in bed in NAD. Afebrile. 09/12 Patient is lying in bed in NAD. On 4L oxygen. Afebrile. Renal function worse today with Cr: 2.70 from 1.81 09/13 Patient is lying in bed in NAD. Afebrile, Renal function is worsening with Cr: 3.04 from 2.70 09/14 Patient dropped his sats overnight placed on partial rebreather, CXR this morning showed b/l pulm infiltrates. Given Lasix 40mg IV x1. Afebrile. Subjective 09/15: Afebrile. Lying in bed in no acute distress. Currently on high flow at 90% nasal cannula. 09/16 Patient is on high flow oxygen 30L with 90% FIO2. Afebrile: Objective Vital Signs / I&O: Vital Signs 09/15/18 07:29 09/15/18 08:00 09/15/18 08:33 Temperature 97.7 F Pulse Rate 90 95 H Respiratory Rate 20 21 Blood Pressure 143/69 H Pulse Oximetry 95 88 L 95 09/15/18 09:00 09/15/18 10:00 09/15/18 11:00 Temperature Pulse Rate 90 87 89 Respiratory Rate 24 25 H 21 Blood Pressure 139/71 137/63 144/67 H Pulse Oximetry 91 L 85 L 89 L 09/15/18 11:16 09/15/18 12:00 09/15/18 13:00 Temperature 98.1 F Pulse Rate 85 88 91 H Respiratory Rate 24 18 23 Blood Pressure 153/71 H Pulse Oximetry 99 93 L 09/15/18 13:01 09/15/18 14:00 09/15/18 15:00 Temperature Pulse Rate 95 H 72 80 Respiratory Rate 22 17 21 Blood Pressure 139/63 123/59 L 128/61 Pulse Oximetry 93 L 100 97 09/15/18 15:17 09/15/18 16:00 09/15/18 16:26 Temperature 96.9 F L Pulse Rate 80 97 H 82 Respiratory Rate 21 24 24 Blood Pressure 133/59 L 133/59 L Pulse Oximetry 85 L 94 L 09/15/18 17:00 09/15/18 18:00 09/15/18 19:00 Temperature Pulse Rate 73 85 79 Respiratory Rate 13 31 H 28 H Blood Pressure 122/59 L 125/58 L 125/58 L Pulse Oximetry 94 L 88 L 95 09/15/18 19:50 09/15/18 20:00 09/15/18 21:00 Temperature 97.6 F Pulse Rate 79 82 83 Respiratory Rate 26 H 23 22 Blood Pressure 130/62 141/63 H Pulse Oximetry 96 98 93 L 09/15/18 22:00 09/15/18 23:00 09/15/18 23:43 Temperature Pulse Rate 80 86 84 Respiratory Rate 23 27 H 24 Blood Pressure 131/58 L 129/63 Pulse Oximetry 94 L 85 L 09/16/18 00:00 09/16/18 01:00 09/16/18 02:00 Temperature 97.6 F Pulse Rate 92 H 85 72 Respiratory Rate 28 H 28 H 19 Blood Pressure 136/63 133/78 133/64 Pulse Oximetry 91 L 91 L 99 09/16/18 03:00 09/16/18 04:00 09/16/18 06:00 Temperature 98.6 F Pulse Rate 91 H 99 H 74 Respiratory Rate 23 24 Blood Pressure 139/61 135/65 Pulse Oximetry 90 L 86 L Intake & Output 09/15/18 09/16/18 09/16/18 18:59 06:59 18:59 Intake Total 530 / 530 830 / 830 Output Total 400 / 400 500 / 500 Balance 130 / 130 330 / 330 Weight 104 kg Intake: IV 50 / 50 350 / 350 Azithromycin Inj 500 MG In NS 250 / 250 Inj 250 ML @ 250 mls/hr IV.SIG Q24H ZEKE Rx#:[id number] Zosyn 3.375 GM Premix 50 ML @ 50 / 50 100 / 100 100 mls/hr IV.SIG Q8H ZEKE Rx#: [id number] Oral 480 / 480 480 / 480 Output: Urine 400 / 400 500 / 500 Other: # Incontinent Voids 1 3 Date of Last Bowel Movement 09/15/18 09/16/18 # Bowel Movements 1 Result Diagrams: 09/15/18 07:20 09/15/18 07:20 Other Results: Laboratory Results - last 12 hr 09/15/18 09/16/18 23:24 05:15 POC Glucose 273 H 208 H Imaging: Abdomen/Bladder Ultrasound 09/11/18 00:00 CONCLUSION: 1. Increased renal cortical echogenicity characteristic of chronic parenchymal disease. 2. No evidence of hydronephrosis. 3. No suspicious masses identified. Chest X-Ray 09/16/18 06:00 CONCLUSION: No significant interval change with persistent prominent bilateral upper lung zone opacity. Objective Remarks: GENERAL: Patient is 78 yo lying in bed in NAD on nasal cannula SKIN: Warm and dry. HEAD: Normocephalic. EYES: No scleral icterus. No injection or drainage. NECK: Supple, trachea midline. No JVD or lymphadenopathy. CARDIOVASCULAR: Regular rate and rhythm without murmurs, gallops, or rubs. RESPIRATORY: Breath sounds equal bilaterally. Coarse BS, crackles GASTROINTESTINAL: Abdomen soft, non-tender, nondistended. MUSCULOSKELETAL: No cyanosis, or edema. Neuro: Awake and alert Assessment and Plan - Assessment and Plan Plan: 1. Acute hypoxemic respiratory insufficiency. 2. Left upper lobe pneumonia pr CT chest. 3. B/l pulm infiltrates 4. Acute kidney injury. 5. Anemia. 6. Coronary artery disease. 7. Diabetes mellitus. 8. Hypertension. 9. Chronic obstructive pulmonary disease. 10. Elevated BMI. 11. Leukocytosis 12. Transaminitis Plan Neuro: Monitor neuro status and avoid any sedatives. Psych is following. Hold Seroquel. Pulm:Wean down oxygen as joyce and maintain sats>92%. Bronchodilators with albuterol/ipratropium aerosols every 4 hours with albuterol aerosols every 2 hours as needed dyspnea, Solu-Medrol 40 mg IVQ8, Symbicort 160/4.5 two puffs b.i.d. Pulm is following-Dr. Garcia CXR today-No significant interval change with persistent prominent bilateral upper lung zone opacity. CV: on Cardizem 60 mg QID at home hold medications of amlodipine 5 mg daily and lisinopril 40 mg twice daily Monitor HR and BP keep MAP>65mmHg Echo on 08/30/2018 EF of 50% to 55%. PA pressure 32 mmHg. Renal/FEN/: Monitor renal function, I's and O's, and avoid nephrotoxins. Renal US: No masses, no hydronephrosis Renal function worse today with Cr: 3.25 from 3.04 Renal is following- Dr. Krueger ARF likely due to ATN 2nd Vanco tox. on bumetanide 2mg IV Q8 per renal. GI: on pantoprazole 40 mg IV daily for GI prophylaxis. On cardiac diet ID: Continue abx Azithromycin, piperacillin/tazobactam Monitor for signs of infection( fever and WBC). 09/12: normal resp zeb strep pneumonia and legionella urinary antigen negative Heme: Monitor CBC. Endo: SSI with aspart insulin to medium scale with Accu-Chek for glycemic Continue allopurinol 100 mg daily GI prophylaxis with P pantoprazole 40 mg daily DVT prophylaxis with SCD and heparin subcu Follow up on labs Level 3
[2018-09-16] MEDS: Allopurinol 100 MG Tablet PO SCH (08:00)
[2018-09-16] MEDS: Budesonide-Formoterol 160/4.5 MCG 6 GM Inhaler INH SCH ×2 (08:00→21:42)
[2018-09-16] MEDS: dilTIAZem 60 MG Tablet PO SCH ×4 (08:00→20:35)
[2018-09-16] MEDS: Heparin - SQ 10,000 UNITS/ML Vial SQ SCH ×2 (08:00→20:35)
[2018-09-16] MEDS: Pantoprazole Inj 40 MG Vial IV.PUSH SCH (08:00)
[2018-09-16 09:47] LABS: Baso % (Auto) 0.1 % (0.0-2.0); Hematocrit 25.1 % (39.0-51.0); Hemoglobin 8.4 gm/dL (13.0-17.0); Lymph # (Auto) 0.5 th/mm3 (1.0-4.8); Lymph % (Auto) 3.5 % (9.0-44.0); Mean Corpuscular HGB Conc 33.5 % (32.0-36.0); Mean Corpuscular Hemoglobin 27.8 pg (27.0-34.0); Mean Platelet Volume 7.4 fL (7.0-11.0); Mono # (Auto) 0.5 th/mm3 (0.0-0.9); Neut # (Auto) 14.5 th/mm3 (1.8-7.7); Neut % (Auto) 93.4 % (16.0-70.0); Platelet Count 262 th/mm3 (150-450); Red Blood Count 3.03 mil/mm3 (4.50-5.90); Red Cell Distribution Width 17.5 % (11.6-17.2); White Blood Count 15.5 th/mm3 (4.0-11.0)
[2018-09-16 10:13] LABS: Albumin 2.8 g/dL (3.4-5.0); Anion Gap 12 meq/L (5-15); Aspartate Aminotransferase 96 U/L (15-37); Blood Urea Nitrogen 69 mg/dL (7-18); Calcium 8.3 mg/dL (8.5-10.1); Carbon Dioxide 25.8 meq/L (21.0-32.0); Chloride 104 meq/L (98-107); Glomerular Filtration Rate 18 mL/min (>89); Glucose,Random 164 mg/dL (74-106); Magnesium 2.8 mg/dL (1.5-2.5); Potassium 3.2 meq/L (3.5-5.1); Sodium 142 meq/L (136-145)
[2018-09-16 10:33] LABS: Lymphocytes 6 % (9-44); Monocytes 2 % (0-8); Myelocytes 2 % (0-0)
[2018-09-16 10:34] LABS: Ovalocytes 1+
[2018-09-16 10:35] LABS: Alanine Aminotransferase 154 U/L (12-78); Alkaline Phosphatase 63 U/L (45-117); Platelet Estimate Normal (Normal); Platelet Morphology Normal (Normal); Total Protein 6.4 g/dL (6.4-8.2)
[2018-09-16] MEDS: MethylPREDNISolone Sod Succinate Inj 40 MG/ML Vial IV.PUSH SCH ×2 (11:29→21:41)
[2018-09-16] MEDS: Insulin NovoLOG Aspart Correctional Sugar Inj SQ SCH ×3 (12:53→23:38)
[2018-09-16] MEDS: Azithromycin Inj 500 MG in Sodium Chlor 0.9% Inj 250 ML IV.SIG SCH (17:32)
--- NOTE | 2018-09-16 17:54 | P.PNNP ---
Subjective Interval history: Patient is tired with increased urine output Physical Exam Vital signs: Vital Signs 09/15/18 18:00 09/15/18 19:00 09/15/18 19:50 Temperature Pulse Rate 85 79 79 Respiratory Rate 31 H 28 H 26 H Blood Pressure 125/58 L 125/58 L Pulse Oximetry 88 L 95 96 09/15/18 20:00 09/15/18 21:00 09/15/18 22:00 Temperature 97.6 F Pulse Rate 82 83 80 Respiratory Rate 23 22 23 Blood Pressure 130/62 141/63 H 131/58 L Pulse Oximetry 98 93 L 94 L 09/15/18 23:00 09/15/18 23:43 09/16/18 00:00 Temperature 97.6 F Pulse Rate 86 84 92 H Respiratory Rate 27 H 24 28 H Blood Pressure 129/63 136/63 Pulse Oximetry 85 L 91 L 09/16/18 01:00 09/16/18 02:00 09/16/18 03:00 Temperature Pulse Rate 85 72 91 H Respiratory Rate 28 H 19 23 Blood Pressure 133/78 133/64 139/61 Pulse Oximetry 91 L 99 90 L 09/16/18 04:00 09/16/18 05:00 09/16/18 06:00 Temperature 98.6 F Pulse Rate 99 H 88 84 Respiratory Rate 24 22 30 H Blood Pressure 135/65 133/64 140/64 Pulse Oximetry 86 L 91 L 88 L 09/16/18 07:00 09/16/18 08:00 09/16/18 09:00 Temperature 98.7 F Pulse Rate 75 80 70 Respiratory Rate 20 30 H 19 Blood Pressure 130/62 145/65 H Pulse Oximetry 95 92 L 93 L 09/16/18 09:01 09/16/18 10:00 09/16/18 11:00 Temperature Pulse Rate 70 72 86 Respiratory Rate 21 18 33 H Blood Pressure 124/58 L 134/60 127/61 Pulse Oximetry 92 L 90 L 86 L 09/16/18 12:00 09/16/18 13:00 09/16/18 14:00 Temperature 97.6 F Pulse Rate 90 81 79 Respiratory Rate 21 27 H 30 H Blood Pressure 125/61 134/74 124/61 Pulse Oximetry 86 L 84 L 87 L 09/16/18 15:00 09/16/18 16:00 09/16/18 16:01 Temperature 98.2 F Pulse Rate 77 100 H 95 H Respiratory Rate 27 H 37 H 40 H Blood Pressure 134/70 134/61 Pulse Oximetry 94 L 90 L 90 L 09/16/18 17:00 Temperature Pulse Rate 81 Respiratory Rate 20 Blood Pressure Pulse Oximetry 92 L Intake & Output 09/15/18 09/16/18 09/16/18 18:59 06:59 18:59 Intake Total 530 / 530 830 / 830 50 / 50 Output Total 400 / 400 500 / 500 Balance 130 / 130 330 / 330 50 / 50 Weight 104 kg Intake: IV 50 / 50 350 / 350 50 / 50 Azithromycin Inj 500 MG In NS 250 / 250 Inj 250 ML @ 250 mls/hr IV.SIG Q24H ZEKE Rx#:[id number] Zosyn 3.375 GM Premix 50 ML @ 50 / 50 100 / 100 50 / 50 100 mls/hr IV.SIG Q8H ZEKE Rx#: [id number] Oral 480 / 480 480 / 480 Output: Urine 400 / 400 500 / 500 Other: # Incontinent Voids 1 3 Date of Last Bowel Movement 09/15/18 09/16/18 09/16/18 # Bowel Movements 1 Narrative: GENERAL: Well-nourished,Obese elderly W/M in mild distress SKIN: Warm and dry. HEAD: Normocephalic. EYES: No scleral icterus. No injection or drainage. NECK: Supple, trachea midline. No JVD or lymphadenopathy. CARDIOVASCULAR: Regular rate and rhythm without murmurs, gallops, or rubs. RESPIRATORY: Breath sounds diminished at bases.Has Wheezes and Crackles at bases. GASTROINTESTINAL: Abdomen soft, non-tender, nondistended. EXTREMITIES: 1+ edema of legs. NEUROLOGICAL: Awake, Non-focal. Moves all. Assessment and Plan - Assessment (1) Acute renal failure Code(s): N17.9 - Acute kidney failure, unspecified Status: Acute (2) COPD (chronic obstructive pulmonary disease) Code(s): J44.9 - Chronic obstructive pulmonary disease, unspecified Status: Acute (3) Pneumonia Code(s): J18.9 - Pneumonia, unspecified organism Status: Acute (4) Mood disorder due to known physiological condition with depressive features Code(s): F06.31 - Mood disorder due to known physiological condition with depressive features Status: Acute (5) Gout Code(s): M10.9 - Gout, unspecified Status: Acute (6) Hypertension Code(s): I10 - Essential (primary) hypertension Status: Acute - Plan Patient has acute tubular necrosis likely due to vancomycin levels are high Creatinine 2.7 -> 3 -> 3.2 -> 3.3-3.3 Increase UOP/24 hours recorded, however patient incontinent and UOP not fully recorded [place] in place now Started on bumex 2mg IV q8 yesterday Potassium is low replace Ongoing peripheral edema Dyspnea yesterday, was on non rebreather oxygen yesterday and no on high flow nasal cannula No need for dialysis at this point - monitor UOP and respiratory status Increasing urine output
--- NOTE | 2018-09-16 19:26 | P.PN ---
Subjective Interval history: Awake and on High flow O2 at 90 % . Feels SOB . and pulls at N/C No Fever. Physical Exam Vital signs: Vital Signs 09/15/18 19:50 09/15/18 20:00 09/15/18 21:00 Temperature 97.6 F Pulse Rate 79 82 83 Respiratory Rate 26 H 23 22 Blood Pressure 130/62 141/63 H Pulse Oximetry 96 98 93 L 09/15/18 22:00 09/15/18 23:00 09/15/18 23:43 Temperature Pulse Rate 80 86 84 Respiratory Rate 23 27 H 24 Blood Pressure 131/58 L 129/63 Pulse Oximetry 94 L 85 L 09/16/18 00:00 09/16/18 01:00 09/16/18 02:00 Temperature 97.6 F Pulse Rate 92 H 85 72 Respiratory Rate 28 H 28 H 19 Blood Pressure 136/63 133/78 133/64 Pulse Oximetry 91 L 91 L 99 09/16/18 03:00 09/16/18 04:00 09/16/18 05:00 Temperature 98.6 F Pulse Rate 91 H 99 H 88 Respiratory Rate 23 24 22 Blood Pressure 139/61 135/65 133/64 Pulse Oximetry 90 L 86 L 91 L 09/16/18 06:00 09/16/18 07:00 09/16/18 08:00 Temperature 98.7 F Pulse Rate 84 75 80 Respiratory Rate 30 H 20 30 H Blood Pressure 140/64 130/62 145/65 H Pulse Oximetry 88 L 95 92 L 09/16/18 09:00 09/16/18 09:01 09/16/18 10:00 Temperature Pulse Rate 70 70 72 Respiratory Rate 19 21 18 Blood Pressure 124/58 L 134/60 Pulse Oximetry 93 L 92 L 90 L 09/16/18 11:00 09/16/18 12:00 09/16/18 13:00 Temperature 97.6 F Pulse Rate 86 90 81 Respiratory Rate 33 H 21 27 H Blood Pressure 127/61 125/61 134/74 Pulse Oximetry 86 L 86 L 84 L 09/16/18 14:00 09/16/18 15:00 09/16/18 16:00 Temperature 98.2 F Pulse Rate 79 77 100 H Respiratory Rate 30 H 27 H 37 H Blood Pressure 124/61 134/70 Pulse Oximetry 87 L 94 L 90 L 09/16/18 16:01 09/16/18 17:00 09/16/18 18:00 Temperature Pulse Rate 95 H 81 81 Respiratory Rate 40 H 20 Blood Pressure 134/61 Pulse Oximetry 90 L 92 L Intake & Output 09/16/18 09/16/18 09/17/18 06:59 18:59 06:59 Intake Total 830 / 830 925 / 925 Output Total 500 / 500 1400 / 1400 Balance 330 / 330 -475 / -475 Weight 104 kg Intake: IV 350 / 350 105 / 105 Azithromycin Inj 500 MG In NS 250 / 250 Inj 250 ML @ 250 mls/hr IV.SIG Q24H ZEKE Rx#:[id number] Zosyn 3.375 GM Premix 50 ML @ 100 / 100 105 / 105 100 mls/hr IV.SIG Q8H ZEKE Rx#: [id number] Oral 480 / 480 820 / 820 Output: Urine 500 / 500 1400 / 1400 Other: # Incontinent Voids 3 Date of Last Bowel Movement 09/16/18 09/16/18 # Bowel Movements 1 Narrative: GENERAL: Well-nourished,Obese elderly W/M in mild distress SKIN: Warm and dry. HEAD: Normocephalic. EYES: No scleral icterus. No injection or drainage. NECK: Supple, trachea midline. No JVD or lymphadenopathy. CARDIOVASCULAR: Regular rate and rhythm without murmurs, gallops, or rubs. RESPIRATORY: Breath sounds diminished at bases. Has Wheezes and Crackles at bases. GASTROINTESTINAL: Abdomen soft, non-tender, nondistended. EXTREMITIES: 1+ edema of legs. NEUROLOGICAL: Awake, Non-focal. Moves all. Results - Labs CBC & Chem 7: 09/16/18 08:15 09/16/18 08:15 Laboratory Results - last 24 hr 09/15/18 09/16/18 09/16/18 23:24 05:15 08:15 WBC 15.5 H RBC 3.03 L Hgb 8.4 L Hct 25.1 L MCV 83.0 MCH 27.8 MCHC 33.5 RDW 17.5 H Plt Count 262 MPV 7.4 Prelim Diff (Auto) Slide review pending Neut % (Auto) 93.4 H Lymph % (Auto) 3.5 L Granite % (Auto) 3.0 Eos % (Auto) 0.0 Baso % (Auto) 0.1 Neut # (Auto) 14.5 H Lymph # (Auto) 0.5 L [place] # (Auto) 0.5 Eos # (Auto) 0.0 Baso # (Auto) 0.0 WBC Differential Manual diff final Seg Neuts % (Manual) 90 H Lymphocytes % (Manual) 6 L Monocytes % (Manual) 2 Myelocytes % (Man) 2 H Abs Neuts (Manual) 14.3 H Differential Comment . Platelet Estimate Normal Platelet Morphology Normal Ovalocytes 1+ H Sodium Potassium Chloride Carbon Dioxide Anion Gap BUN Creatinine Estimated GFR POC Glucose 273 H 208 H Random Glucose Calcium Phosphorus Magnesium Total Bilirubin AST ALT Alkaline Phosphatase Total Protein Albumin 09/16/18 09/16/18 09/16/18 08:15 08:55 11:43 WBC RBC Hgb Hct MCV MCH MCHC RDW Plt Count MPV Prelim Diff (Auto) Neut % (Auto) Lymph % (Auto) Granite % (Auto) Eos % (Auto) Baso % (Auto) Neut # (Auto) Lymph # (Auto) Granite # (Auto) Eos # (Auto) Baso # (Auto) WBC Differential Seg Neuts % (Manual) Lymphocytes % (Manual) Monocytes % (Manual) Myelocytes % (Man) Abs Neuts (Manual) Differential Comment Platelet Estimate Platelet Morphology Ovalocytes Sodium 142 Potassium 3.2 L Chloride 104 Carbon Dioxide 25.8 Anion Gap 12 BUN 69 H Creatinine 3.30 H Estimated GFR 18 L POC Glucose 178 H 254 H Random Glucose 164 H Calcium 8.3 L Phosphorus 4.0 Magnesium 2.8 H Total Bilirubin 0.6 AST 96 H ALT 154 H Alkaline Phosphatase 63 Total Protein 6.4 Albumin 2.8 L 09/16/18 16:36 WBC RBC Hgb Hct MCV MCH MCHC RDW Plt Count MPV Prelim Diff (Auto) Neut % (Auto) Lymph % (Auto) Granite % (Auto) Eos % (Auto) Baso % (Auto) Neut # (Auto) Lymph # (Auto) Granite # (Auto) Eos # (Auto) Baso # (Auto) WBC Differential Seg Neuts % (Manual) Lymphocytes % (Manual) Monocytes % (Manual) Myelocytes % (Man) Abs Neuts (Manual) Differential Comment Platelet Estimate Platelet Morphology Ovalocytes Sodium Potassium Chloride Carbon Dioxide Anion Gap BUN Creatinine Estimated GFR POC Glucose 165 H Random Glucose Calcium Phosphorus Magnesium Total Bilirubin AST ALT Alkaline Phosphatase Total Protein Albumin - Imaging Impressions Chest X-Ray 09/16/18 06:00 CONCLUSION: No significant interval change with persistent prominent bilateral upper lung zone opacity. 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 Acute hypoxemic respiratory insufficiency. 2. Left upper lobe pneumonia per CT chest. 3. B/l pulm infiltrates 4. Acute kidney injury. 5. Anemia. 6. Coronary artery disease. 7. Diabetes mellitus. 8. Hypertension. 9. Chronic obstructive pulmonary disease. 10. Obesity. Plan Pulm: 1)Continue with High flow N/C 8l and FIo2 80 % Bronchodilators, and Symbicort 160/4.5 two puffs b.i.d. solumedrol IV 40 mg IV Q12H Will use BIPAP 12/ 5 cm at HS and PRN if sats <92 2) Cont Albumin and Cont Bumex 1 mg IV per Renal. Rpt BMP, CBC 3) Cont Antibiotics Zithromax and Zosyn 4) Cont Duoneb nebs qid. 5) IS at bedside q3h
[2018-09-16 19:31] LABS: Hemoglobin A1c 5.8 % (4.3-6.0)
[2018-09-17] MEDS: Insulin NovoLOG Aspart Correctional Sugar Inj SQ SCH ×5 (00:02→23:43)
[2018-09-17] MEDS: Piperacil/Tazo 3.375 GM Premix 50 ML IV.SIG SCH ×4 (01:45→21:24)
[2018-09-17 04:40] LABS: Hematocrit 24.9 % (39.0-51.0); Hemoglobin 8.4 gm/dL (13.0-17.0); Lymph # (Auto) 0.4 th/mm3 (1.0-4.8); Lymph % (Auto) 2.5 % (9.0-44.0); Mean Corpuscular HGB Conc 33.8 % (32.0-36.0); Mean Corpuscular Hemoglobin 27.9 pg (27.0-34.0); Mean Corpuscular Volume 82.4 fL (80.0-100.0); Mean Platelet Volume 7.1 fL (7.0-11.0); Mono # (Auto) 0.4 th/mm3 (0.0-0.9); Mono % (Auto) 2.3 % (0.0-8.0); Neut # (Auto) 17.2 th/mm3 (1.8-7.7); Neut % (Auto) 95.2 % (16.0-70.0); Platelet Count 283 th/mm3 (150-450); Red Blood Count 3.02 mil/mm3 (4.50-5.90); Red Cell Distribution Width 17.6 % (11.6-17.2)
[2018-09-17 05:10] LABS: Albumin 2.6 g/dL (3.4-5.0); Anion Gap 10 meq/L (5-15); Aspartate Aminotransferase 81 U/L (15-37); Blood Urea Nitrogen 76 mg/dL (7-18); Calcium 8.1 mg/dL (8.5-10.1); Carbon Dioxide 28.9 meq/L (21.0-32.0); Chloride 105 meq/L (98-107); Glomerular Filtration Rate 18 mL/min (>89); Glucose,Random 144 mg/dL (74-106); Potassium 3.3 meq/L (3.5-5.1); Sodium 144 meq/L (136-145)
[2018-09-17 05:11] LABS: Alanine Aminotransferase 152 U/L (12-78)
[2018-09-17 05:13] LABS: Alkaline Phosphatase 65 U/L (45-117); Total Protein 6.2 g/dL (6.4-8.2)
[2018-09-17 06:51] LABS: Platelet Estimate Normal (Normal); Platelet Morphology Normal (Normal)
--- NOTE | 2018-09-17 07:59 | P.PNCC ---
Subjective Subjective Remarks/Hospital Course: Patient is a 78-year-old male with a past medical history of ? COPD, hypertension, diabetes mellitus, coronary artery disease and gout. He was admitted to inpatient medication psych on 08/17/2018 for suicidal ideation and acute kidney injury. He was found to have a creatinine of 1.64. During his hospital course, the patient was seen by hospitalist service. He had a chest x- ray on 08/19/2018. At that time it showed mild basilar opacity, probably subsegmental atelectasis with trace pleural fluid. Then, he had a CT scan of the chest on 09/07/2018 which showed suspected left hilar mass, mild congestive heart failure with small bilateral pleural effusions, left upper lobe pneumonia and focal atypical appearing infiltrate in the right middle lobe with dependent atelectasis of both lower lobes. He was started on broad-spectrum antibiotics. The patient had a V/Q scan on 09/08/2018 which showed a low probability for pulmonary embolism. Helicat was called for increased O2 requirements and the patient was subsequently transferred to [facility] [place] and Critical Care Medicine was consulted for critical care management. When seen, the patient was on partial nonrebreather mask with a saturation of 100%. Blood pressure 151/70 with a pulse of 89. The patient states that he quit smoking over 20 years ago. He does not use any inhalers or nebulizers at home. He denies any nausea, vomiting or abdominal pain. 09/11 Patient is lying in bed in NAD. Afebrile. 09/12 Patient is lying in bed in NAD. On 4L oxygen. Afebrile. Renal function worse today with Cr: 2.70 from 1.81 09/13 Patient is lying in bed in NAD. Afebrile, Renal function is worsening with Cr: 3.04 from 2.70 09/14 Patient dropped his sats overnight placed on partial rebreather, CXR this morning showed b/l pulm infiltrates. Given Lasix 40mg IV x1. Afebrile. Subjective 09/15: Afebrile. Lying in bed in no acute distress. Currently on high flow at 90% nasal cannula. 09/16 Patient is on high flow oxygen 30L with 90% FIO2. Afebrile: 09/17 Patient is on 35L high flow oxyge with 60% FIO2. Awake and alert, Afebrile. Objective Vital Signs / I&O: Vital Signs 09/16/18 08:00 09/16/18 09:00 09/16/18 09:01 Temperature 98.7 F Pulse Rate 80 70 70 Respiratory Rate 30 H 19 21 Blood Pressure 145/65 H 124/58 L Pulse Oximetry 92 L 93 L 92 L 09/16/18 10:00 09/16/18 11:00 09/16/18 12:00 Temperature 97.6 F Pulse Rate 72 86 90 Respiratory Rate 18 33 H 21 Blood Pressure 134/60 127/61 125/61 Pulse Oximetry 90 L 86 L 86 L 09/16/18 13:00 09/16/18 14:00 09/16/18 15:00 Temperature Pulse Rate 81 79 77 Respiratory Rate 27 H 30 H 27 H Blood Pressure 134/74 124/61 134/70 Pulse Oximetry 84 L 87 L 94 L 09/16/18 16:00 09/16/18 16:01 09/16/18 17:00 Temperature 98.2 F Pulse Rate 100 H 95 H 81 Respiratory Rate 37 H 40 H 20 Blood Pressure 134/61 Pulse Oximetry 90 L 90 L 92 L 09/16/18 18:00 09/16/18 20:00 09/16/18 20:07 Temperature 97.3 F L Pulse Rate 81 81 86 Respiratory Rate 22 17 Blood Pressure 126/68 Pulse Oximetry 93 L 91 L 09/16/18 22:00 09/16/18 22:07 09/16/18 23:19 Temperature Pulse Rate 77 79 Respiratory Rate 18 Blood Pressure Pulse Oximetry 90 L 09/16/18 23:20 09/17/18 00:00 09/17/18 02:00 Temperature Pulse Rate 77 86 Respiratory Rate 22 Blood Pressure 155/66 H Pulse Oximetry 94 L 88 L 09/17/18 03:24 09/17/18 04:00 09/17/18 06:00 Temperature 98.2 F Pulse Rate 82 104 H 91 H Respiratory Rate 17 26 H Blood Pressure 144/68 H Pulse Oximetry 90 L 09/17/18 07:00 Temperature Pulse Rate 110 H Respiratory Rate 20 Blood Pressure Pulse Oximetry 91 L Intake & Output 09/16/18 09/17/18 09/17/18 18:59 06:59 18:59 Intake Total 925 / 925 1150 / 1150 Output Total 1400 / 1400 1000 / 1000 Balance -475 / -475 150 / 150 Weight 105.6 kg Intake: IV 105 / 105 300 / 300 Azithromycin Inj 500 MG In NS 250 / 250 Inj 250 ML @ 250 mls/hr IV.SIG Q24H ZEKE Rx#:[id number] Zosyn 3.375 GM Premix 50 ML @ 105 / 105 50 / 50 100 mls/hr IV.SIG Q8H ZEKE Rx#: [id number] Oral 820 / 820 850 / 850 Output: Urine 1400 / 1400 1000 / 1000 Other: Date of Last Bowel Movement 09/16/18 09/17/18 # Bowel Movements 1 Result Diagrams: 09/17/18 04:10 09/17/18 04:10 Other Results: Laboratory Results - last 12 hr 09/15/18 09/16/18 09/17/18 07:20 23:45 04:10 WBC 18.0 H RBC 3.02 L Hgb 8.4 L Hct 24.9 L MCV 82.4 MCH 27.9 MCHC 33.8 RDW 17.6 H Plt Count 283 MPV 7.1 Prelim Diff (Auto) Slide review pending Neut % (Auto) 95.2 H Lymph % (Auto) 2.[address] [place] % (Auto) 2.3 Eos % (Auto) 0.0 Baso % (Auto) 0.0 Neut # (Auto) 17.2 H Lymph # (Auto) 0.[address] [place] # (Auto) 0.4 Eos # (Auto) 0.0 Baso # (Auto) 0.0 WBC Differential . Diff Scan Auto diff confirmed Differential Comment . Platelet Estimate Normal Platelet Morphology Normal Keratocytes Occ H Sodium Potassium Chloride Carbon Dioxide Anion Gap BUN Creatinine Estimated GFR POC Glucose 135 H Random Glucose Hemoglobin A1c 5.8 Calcium Total Bilirubin AST ALT Alkaline Phosphatase Total Protein Albumin 09/17/18 09/17/18 04:10 06:00 WBC RBC Hgb Hct MCV MCH MCHC RDW Plt Count MPV Prelim Diff (Auto) Neut % (Auto) Lymph % (Auto) [place] % (Auto) Eos % (Auto) Baso % (Auto) Neut # (Auto) Lymph # (Auto) [place] # (Auto) Eos # (Auto) Baso # (Auto) WBC Differential Diff Scan Differential Comment Platelet Estimate Platelet Morphology Keratocytes Sodium 144 Potassium 3.3 L Chloride 105 Carbon Dioxide 28.9 Anion Gap 10 BUN 76 H Creatinine 3.29 H Estimated GFR 18 L POC Glucose 163 H Random Glucose 144 H Hemoglobin A1c Calcium 8.1 L Total Bilirubin 0.8 AST 81 H ALT 152 H Alkaline Phosphatase 65 Total Protein 6.2 L Albumin 2.6 L Imaging: Abdomen/Bladder Ultrasound 09/11/18 00:00 CONCLUSION: 1. Increased renal cortical echogenicity characteristic of chronic parenchymal disease. 2. No evidence of hydronephrosis. 3. No suspicious masses identified. Chest X-Ray 09/16/18 06:00 CONCLUSION: No significant interval change with persistent prominent bilateral upper lung zone opacity. Objective Remarks: GENERAL: Patient is 78 yo lying in bed in NAD on nasal cannula SKIN: Warm and dry. HEAD: Normocephalic. EYES: No scleral icterus. No injection or drainage. NECK: Supple, trachea midline. No JVD or lymphadenopathy. CARDIOVASCULAR: Regular rate and rhythm without murmurs, gallops, or rubs. RESPIRATORY: Breath sounds equal bilaterally. GASTROINTESTINAL: Abdomen soft, non-tender, nondistended. MUSCULOSKELETAL: No cyanosis, or edema. Neuro: Awake and alert Assessment and Plan - Assessment and Plan Plan: 1. Acute hypoxemic respiratory insufficiency. 2. Left upper lobe pneumonia pr CT chest. 3. B/l pulm infiltrates 4. Acute kidney injury. 5. Anemia. 6. Coronary artery disease. 7. Diabetes mellitus. 8. Hypertension. 9. Chronic obstructive pulmonary disease. 10. Elevated BMI. 11. Leukocytosis 12. Transaminitis Plan Neuro: Monitor neuro status and avoid any sedatives. Psych is following. Seroquel on hold Pulm: Continue to wean down oxygen as joyce and maintain sats>92%. Bronchodilators with albuterol/ipratropium aerosols every 4 hours with albuterol aerosols every 2 hours as needed dyspnea, On Solu-Medrol 40 mg IVQ12, Symbicort 160/4.5 two puffs b.i.d. Pulm is following-Dr. Garcia CXR 09/16-No significant interval change with persistent prominent bilateral upper lung zone opacity. CV: on Cardizem 60 mg QID Monitor HR and BP keep MAP>65mmHg Echo on 08/30/2018 EF of 50% to 55%. PA pressure 32 mmHg. : Monitor renal function, I's and O's, and avoid nephrotoxins. Renal US: No masses, no hydronephrosis Cr: 3.29 today, UOP: 2.4L in 24 hrs Renal is following- Dr. Krueger ARF likely due to ATN 2nd Vanco tox. on bumetanide 2mg IV Q12 per renal. GI: on pantoprazole 40 mg IV daily for GI prophylaxis. On cardiac diet Monitor LFT's, check US liver ID: Continue abx Azithromycin, piperacillin/tazobactam Monitor for signs of infection(fever and WBC). check C-diff PCR 09/12: normal resp zeb strep pneumonia and legionella urinary antigen negative Heme: Monitor CBC. Endo: SSI with aspart insulin to medium scale with Accu-Chek for glycemic Continue allopurinol 100 mg daily GI prophylaxis with P pantoprazole 40 mg daily DVT prophylaxis with SCD and heparin subcu Level 2
[2018-09-17] MEDS: Allopurinol 100 MG Tablet PO SCH (08:17)
[2018-09-17] MEDS: Pantoprazole Inj 40 MG Vial IV.PUSH SCH (08:17)
[2018-09-17] MEDS: dilTIAZem 60 MG Tablet PO SCH ×4 (08:17→22:56)
[2018-09-17] MEDS: Heparin - SQ 10,000 UNITS/ML Vial SQ SCH ×2 (08:18→21:24)
[2018-09-17] MEDS: Budesonide-Formoterol 160/4.5 MCG 6 GM Inhaler INH SCH ×2 (08:18→22:56)
[2018-09-17] MEDS: MethylPREDNISolone Sod Succinate Inj 40 MG/ML Vial IV.PUSH SCH ×2 (10:02→21:24)
--- NOTE | 2018-09-17 12:08 | P.PNNP ---
Subjective Interval history: Patient is sitting in the chair shortness of breath has improved he has still have a cough and congestion Physical Exam Vital signs: Vital Signs 09/16/18 13:00 09/16/18 14:00 09/16/18 15:00 Temperature Pulse Rate 81 79 77 Respiratory Rate 27 H 30 H 27 H Blood Pressure 134/74 124/61 134/70 Pulse Oximetry 84 L 87 L 94 L 09/16/18 16:00 09/16/18 16:01 09/16/18 17:00 Temperature 98.2 F Pulse Rate 100 H 95 H 81 Respiratory Rate 37 H 40 H 20 Blood Pressure 134/61 Pulse Oximetry 90 L 90 L 92 L 09/16/18 18:00 09/16/18 19:00 09/16/18 20:00 Temperature 97.3 F L Pulse Rate 79 79 77 Respiratory Rate 21 22 22 Blood Pressure 124/87 134/61 126/68 Pulse Oximetry 91 L 93 L 93 L 09/16/18 20:07 09/16/18 21:00 09/16/18 22:00 Temperature Pulse Rate 86 76 77 Respiratory Rate 17 21 22 Blood Pressure 142/63 H 124/70 Pulse Oximetry 91 L 95 91 L 09/16/18 22:07 09/16/18 23:00 09/16/18 23:19 Temperature Pulse Rate 81 79 Respiratory Rate 19 18 Blood Pressure 134/63 Pulse Oximetry 90 L 90 L 09/16/18 23:20 09/17/18 00:00 09/17/18 01:00 Temperature Pulse Rate 77 78 Respiratory Rate 24 19 Blood Pressure 145/63 H 139/64 Pulse Oximetry 94 L 90 L 91 L 09/17/18 02:00 09/17/18 03:00 09/17/18 03:24 Temperature Pulse Rate 86 85 82 Respiratory Rate 22 23 17 Blood Pressure 155/66 H 149/65 H Pulse Oximetry 88 L 88 L 09/17/18 04:00 09/17/18 05:00 09/17/18 05:01 Temperature 98.2 F Pulse Rate 104 H 95 H 137 H Respiratory Rate 26 H 33 H 31 H Blood Pressure 144/68 H 120/79 Pulse Oximetry 90 L 79 L 79 L 09/17/18 06:00 09/17/18 07:00 09/17/18 08:00 Temperature 98.6 F Pulse Rate 91 H 100 H 76 Respiratory Rate 27 H 28 H 16 Blood Pressure 129/58 L 137/67 142/63 H Pulse Oximetry 88 L 86 L 92 L 09/17/18 09:00 09/17/18 09:01 09/17/18 11:00 Temperature Pulse Rate 89 96 H 82 Respiratory Rate 27 H 22 20 Blood Pressure 134/66 Pulse Oximetry 96 96 Intake & Output 09/16/18 09/17/18 09/17/18 18:59 06:59 18:59 Intake Total 925 / 925 1150 / 1150 50 / 50 Output Total 1400 / 1400 1000 / 1000 Balance -475 / -475 150 / 150 50 / 50 Weight 105.6 kg Intake: IV 105 / 105 300 / 300 50 / 50 Azithromycin Inj 500 MG In NS 250 / 250 Inj 250 ML @ 250 mls/hr IV.SIG Q24H ZEKE Rx#:[id number] Zosyn 3.375 GM Premix 50 ML @ 105 / 105 50 / 50 50 / 50 100 mls/hr IV.SIG Q8H ZEKE Rx#: [id number] Oral 820 / 820 850 / 850 Output: Urine 1400 / 1400 1000 / 1000 Other: Date of Last Bowel Movement 09/16/18 09/17/18 # Bowel Movements 1 Narrative: GENERAL: Well-nourished,Obese elderly W/M in mild distress SKIN: Warm and dry. HEAD: Normocephalic. EYES: No scleral icterus. No injection or drainage. NECK: Supple, trachea midline. No JVD or lymphadenopathy. CARDIOVASCULAR: Regular rate and rhythm without murmurs, gallops, or rubs. RESPIRATORY: Breath sounds diminished at bases. Has Wheezes and Crackles at bases. GASTROINTESTINAL: Abdomen soft, non-tender, nondistended. EXTREMITIES: 1+ edema of legs. NEUROLOGICAL: Awake, Non-focal. Moves all. Assessment and Plan - Assessment (1) Acute renal failure Code(s): N17.9 - Acute kidney failure, unspecified Status: Acute (2) COPD (chronic obstructive pulmonary disease) Code(s): J44.9 - Chronic obstructive pulmonary disease, unspecified Status: Acute (3) Pneumonia Code(s): J18.9 - Pneumonia, unspecified organism Status: Acute (4) Mood disorder due to known physiological condition with depressive features Code(s): F06.31 - Mood disorder due to known physiological condition with depressive features Status: Acute (5) Gout Code(s): M10.9 - Gout, unspecified Status: Acute (6) Hypertension Code(s): I10 - Essential (primary) hypertension Status: Acute - Plan Patient has acute tubular necrosis likely due to vancomycin levels are high Creatinine 2.7 -> 3 -> 3.2 -> 3.3-3.3-3.29 Increase UOP/24 hours recorded, however patient incontinent and UOP not fully recorded [place] in place now Started on bumex 2mg IV q8 , will decrease it to 2 mg IV every 12 hourly Ongoing peripheral edema Dyspnea yesterday, was on non rebreather oxygen yesterday and no on high flow nasal cannula No need for dialysis at this point - monitor UOP and respiratory status Increasing urine output
--- NOTE | 2018-09-17 15:14 | US ---
EXAM DATE: 09/17/2018 3:08 PM EST AGE/SEX: 78 years / Male INDICATIONS: Elevated liver functions. CLINICAL DATA: This is the patient's initial encounter. Patient reports that signs and symptoms have been present for 1 day and indicates a pain score of 0/10. MEDICAL/SURGICAL HISTORY: Diabetes. Chronic obstructive pulmonary disease. Gout. Hypertension. Hypokalemia. Pneumonia. Acute renal failure. CAD. . No surgical history noted. COMPARISON: [facility] [place] KIDNEY/RENAL/BLADDER, 09/11/2018. . MEASUREMENTS: Liver:__ 16.4 cm. Common Bile Duct:__ 4mm. Right Kidney:__ 10.8 x 4.7 x 4.7 cm. FINDINGS: Liver: Increased echotexture without focal lesion or ductal dilation. Portal Vein: Hepatopedal flow seen in portal vein. Common Duct: No intraluminal mass or stone visualized. Gallbladder: There is debris in the dependent portion of the gallbladder. There is no significant ga llbladder wall thickening. There is a trace amount of pericholecystic fluid along superior margin of the gallbladder. Pancreas: The visualized portions are within normal limits Right Kidney: Normal echotexture and cortical thickness. No mass or hydronephrosis. Other: None. CONCLUSION: 1. There is a trace amount of ascites identified around the liver and spleen. 2. There is a small amount of pericholecystic fluid but no significant gallbladder wall thickening. This may represent ascites. 3. Echogenic debris in the dependent portion of the gallbladder. 4. Heterogeneous echotexture of the liver Electronically signed by: Joe Freeman MD 09/17/2018 3:13 PM EST
[2018-09-17] MEDS: Azithromycin Inj 500 MG in Sodium Chlor 0.9% Inj 250 ML IV.SIG SCH (17:09)
[2018-09-17] MEDS ORDERED: Haloperidol Inj 5 MG/ML Ampul IV.PUSH ONE (19:15)
--- NOTE | 2018-09-17 20:00 | P.PN ---
Subjective Interval history: seems better today and up in a chair. No fever. renal profile is worse. using high flow O2 at 60 % Physical Exam Vital signs: Vital Signs 09/16/18 20:00 09/16/18 20:07 09/16/18 21:00 Temperature 97.3 F L Pulse Rate 77 86 76 Respiratory Rate 22 17 21 Blood Pressure 126/68 142/63 H Pulse Oximetry 93 L 91 L 95 09/16/18 22:00 09/16/18 22:07 09/16/18 23:00 Temperature Pulse Rate 77 81 Respiratory Rate 22 19 Blood Pressure 124/70 134/63 Pulse Oximetry 91 L 90 L 90 L 09/16/18 23:19 09/16/18 23:20 09/17/18 00:00 Temperature Pulse Rate 79 77 Respiratory Rate 18 24 Blood Pressure 145/63 H Pulse Oximetry 94 L 90 L 09/17/18 01:00 09/17/18 02:00 09/17/18 03:00 Temperature Pulse Rate 78 86 85 Respiratory Rate 19 22 23 Blood Pressure 139/64 155/66 H 149/65 H Pulse Oximetry 91 L 88 L 88 L 09/17/18 03:24 09/17/18 04:00 09/17/18 05:00 Temperature 98.2 F Pulse Rate 82 104 H 95 H Respiratory Rate 17 26 H 33 H Blood Pressure 144/68 H Pulse Oximetry 90 L 79 L 09/17/18 05:01 09/17/18 06:00 09/17/18 07:00 Temperature Pulse Rate 137 H 91 H 100 H Respiratory Rate 31 H 27 H 28 H Blood Pressure 120/79 129/58 L 137/67 Pulse Oximetry 79 L 88 L 86 L 09/17/18 08:00 09/17/18 09:00 09/17/18 09:01 Temperature 98.6 F Pulse Rate 76 89 96 H Respiratory Rate 16 27 H 22 Blood Pressure 142/63 H 134/66 Pulse Oximetry 92 L 96 96 09/17/18 10:00 09/17/18 11:00 09/17/18 12:00 Temperature 97.8 F Pulse Rate 86 75 95 H Respiratory Rate 20 15 24 Blood Pressure 146/63 H 136/75 125/101 H Pulse Oximetry 94 L 96 95 09/17/18 12:18 09/17/18 13:00 11/13/18 13:56 Temperature Pulse Rate 83 92 H 91 H Respiratory Rate 20 22 24 Blood Pressure 142/62 H 142/64 H Pulse Oximetry 96 96 86 L 09/17/18 14:00 09/17/18 15:00 09/17/18 16:00 Temperature 97.7 F Pulse Rate 79 94 H 91 H Respiratory Rate 26 H 21 22 Blood Pressure Pulse Oximetry 89 L 87 L 89 L 09/17/18 18:00 Temperature Pulse Rate 91 H Respiratory Rate Blood Pressure Pulse Oximetry Intake & Output 09/17/18 09/17/18 09/18/18 06:59 18:59 06:59 Intake Total 1150 / 1150 750 / 750 Output Total 1000 / 1000 Balance 150 / 150 750 / 750 Weight 105.6 kg Intake: IV 300 / 300 100 / 100 Azithromycin Inj 500 MG In NS 250 / 250 Inj 250 ML @ 250 mls/hr IV.SIG Q24H ZEKE Rx#:[id number] Zosyn 3.375 GM Premix 50 ML @ 50 / 50 100 / 100 100 mls/hr IV.SIG Q6H ZEKE Rx#: [id number] Oral 850 / 850 650 / 650 Output: Urine 1000 / 1000 Other: # Incontinent Voids 4 Date of Last Bowel Movement 09/17/18 09/17/18 # Bowel Movements 1 # Incontinent Bowel Movements 2 Narrative: GENERAL: Well-nourished,Obese elderly W/M in no distress SKIN: Warm and dry. HEAD: Normocephalic. EYES: No scleral icterus. No injection or drainage. NECK: Supple, trachea midline. No JVD or lymphadenopathy. CARDIOVASCULAR: Regular rate and rhythm without murmurs, gallops, or rubs. RESPIRATORY: Breath sounds diminished at bases. Has Wheezes and Crackles at bases. GASTROINTESTINAL: Abdomen soft, non-tender, nondistended. EXTREMITIES: 1+ edema of legs. NEUROLOGICAL: Awake, Non-focal. Moves all. Results - Labs CBC & Chem 7: 09/17/18 04:10 09/17/18 04:10 Laboratory Results - last 24 hr 09/15/18 09/16/18 09/17/18 07:20 23:45 04:10 WBC 18.0 H RBC 3.02 L Hgb 8.4 L Hct 24.9 L MCV 82.4 MCH 27.9 MCHC 33.8 RDW 17.6 H Plt Count 283 MPV 7.1 Prelim Diff (Auto) Slide review pending Neut % (Auto) 95.2 H Lymph % (Auto) 2.5 L [place] % (Auto) 2.3 Eos % (Auto) 0.0 Baso % (Auto) 0.0 Neut # (Auto) 17.2 H Lymph # (Auto) 0.4 L [place] # (Auto) 0.4 Eos # (Auto) 0.0 Baso # (Auto) 0.0 WBC Differential . Diff Scan Auto diff confirmed Differential Comment . Platelet Estimate Normal Platelet Morphology Normal Keratocytes Occ H Sodium Potassium Chloride Carbon Dioxide Anion Gap BUN Creatinine Estimated GFR POC Glucose 135 H Random Glucose Hemoglobin A1c 5.8 Calcium Total Bilirubin AST ALT Alkaline Phosphatase Total Protein Albumin 09/17/18 09/17/18 09/17/18 04:10 06:00 12:00 WBC RBC Hgb Hct MCV MCH MCHC RDW Plt Count MPV Prelim Diff (Auto) Neut % (Auto) Lymph % (Auto) [place] % (Auto) Eos % (Auto) Baso % (Auto) Neut # (Auto) Lymph # (Auto) [place] # (Auto) Eos # (Auto) Baso # (Auto) WBC Differential Diff Scan Differential Comment Platelet Estimate Platelet Morphology Keratocytes Sodium 144 Potassium 3.3 L Chloride 105 Carbon Dioxide 28.9 Anion Gap 10 BUN 76 H Creatinine 3.29 H Estimated GFR 18 L POC Glucose 163 H 351 H Random Glucose 144 H Hemoglobin A1c Calcium 8.1 L Total Bilirubin 0.8 AST 81 H ALT 152 H Alkaline Phosphatase 65 Total Protein 6.2 L Albumin 2.6 L 09/17/18 17:07 WBC RBC Hgb Hct MCV MCH MCHC RDW Plt Count MPV Prelim Diff (Auto) Neut % (Auto) Lymph % (Auto) [place] % (Auto) Eos % (Auto) Baso % (Auto) Neut # (Auto) Lymph # (Auto) [place] # (Auto) Eos # (Auto) Baso # (Auto) WBC Differential Diff Scan Differential Comment Platelet Estimate Platelet Morphology Keratocytes Sodium Potassium Chloride Carbon Dioxide Anion Gap BUN Creatinine Estimated GFR POC Glucose 188 H Random Glucose Hemoglobin A1c Calcium Total Bilirubin AST ALT Alkaline Phosphatase Total Protein Albumin - Imaging Impressions Liver Ultrasound 09/17/18 00:00 CONCLUSION: 1. There is a trace amount of ascites identified around the liver and spleen. 2. There is a small amount of pericholecystic fluid but no significant gallbladder wall thickening. This may represent ascites. 3. Echogenic debris in the dependent portion of the gallbladder. 4. Heterogeneous echotexture of the liver Assessment and Plan - Assessment (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 Acute hypoxemic respiratory insufficiency. 2. Left upper lobe pneumonia per CT chest. 3. B/l pulm infiltrates 4. Acute kidney injury. 5. Anemia. 6. Coronary artery disease. 7. Diabetes mellitus. 8. Hypertension. 9. Chronic obstructive pulmonary disease. 10. Obesity. Plan Pulm: 1)Continue with High flow N/C 8l and FIo2 60 % Bronchodilators, and Symbicort 160/4.5 two puffs b.i.d. cont solumedrol IV 40 mg IV Q12H Will use BIPAP 12/ 5 cm at HS and PRN if sats <92 2) Cont Albumin and Cont Bumex 1 mg IV per Renal. Rpt BMP, CBC 3) Cont Antibiotics Zithromax and Zosyn 4) Cont Duoneb nebs qid. 5) IS at bedside q3h
[2018-09-17 21:21] LABS: ABG Base Excess 0.5 mmol/L (-2-2); ABG PCO2 43 mmHg (38-42); ABG PO2 67 mmHG (61-120)
--- NOTE | 2018-09-18 03:47 | XR ---
EXAM DATE: 09/18/2018 3:22 AM EST AGE/SEX: 78 years / Male INDICATIONS: Short of breath. CLINICAL DATA: This is the patient's subsequent encounter. Patient reports that signs and symptoms h ave been present for 1 day and indicates a pain score of 0/10. MEDICAL/SURGICAL HISTORY: Congestive heart failure. Hypertension. None. COMPARISON: [facility] [place] 1V SINGLE AP, 09/16/2018. . FINDINGS: A single AP portable semierect view of the chest was obtained. Dense consolidative opacities are agai n noted in both upper lobes which are not significantly changed. There is milder opacity at the lung bases. The heart size remains at the upper limits of. There is abnormal opacity at the left lung base with obscuration of left hemidiaphragm. The left costophrenic angle is blunted. The bony thorax lex ins intact with multiple overlying electrocardiogram leads. The upper most portion of the lung apices were cut off the exam. Atherosclerotic changes are present. CONCLUSION: Bilateral opacities remain with dense consolidation in the upper lobes. This does not appear signific antly changed. Electronically signed by: Maurizio Whitlock MD 09/18/2018 3:46 AM EST
[2018-09-18] MEDS: Piperacil/Tazo 3.375 GM Premix 50 ML IV.SIG SCH ×4 (03:59→22:00)
[2018-09-18 04:28] LABS: Baso # (Auto) 0.1 th/mm3 (0.0-0.2); Baso % (Auto) 0.3 % (0.0-2.0); Hematocrit 30.9 % (39.0-51.0); Hemoglobin 10.2 gm/dL (13.0-17.0); Lymph # (Auto) 0.6 th/mm3 (1.0-4.8); Lymph % (Auto) 2.6 % (9.0-44.0); Mean Corpuscular HGB Conc 32.8 % (32.0-36.0); Mean Corpuscular Hemoglobin 27.2 pg (27.0-34.0); Mean Corpuscular Volume 82.8 fL (80.0-100.0); Mean Platelet Volume 7.6 fL (7.0-11.0); Mono # (Auto) 0.5 th/mm3 (0.0-0.9); Mono % (Auto) 2.3 % (0.0-8.0); Neut # (Auto) 21.3 th/mm3 (1.8-7.7); Neut % (Auto) 94.8 % (16.0-70.0); Platelet Count 289 th/mm3 (150-450); Red Blood Count 3.73 mil/mm3 (4.50-5.90); Red Cell Distribution Width 17.8 % (11.6-17.2); White Blood Count 22.5 th/mm3 (4.0-11.0)
[2018-09-18 04:47] LABS: Alkaline Phosphatase 67 U/L (45-117); Total Protein 6.9 g/dL (6.4-8.2)
[2018-09-18 04:50] LABS: Alanine Aminotransferase 157 U/L (12-78); Albumin 2.9 g/dL (3.4-5.0); Anion Gap 11 meq/L (5-15); Aspartate Aminotransferase 72 U/L (15-37); Blood Urea Nitrogen 80 mg/dL (7-18); Calcium 8.5 mg/dL (8.5-10.1); Chloride 104 meq/L (98-107); Glomerular Filtration Rate 18 mL/min (>89); Glucose,Random 117 mg/dL (74-106); Potassium 3.6 meq/L (3.5-5.1); Sodium 144 meq/L (136-145)
[2018-09-18] MEDS: Insulin NovoLOG Aspart Correctional Sugar Inj SQ SCH ×4 (05:27→23:58)
--- NOTE | 2018-09-18 07:44 | P.PNCC ---
Subjective Subjective Remarks/Hospital Course: Patient is a 78-year-old male with a past medical history of ? COPD, hypertension, diabetes mellitus, coronary artery disease and gout. He was admitted to inpatient medication psych on 08/17/2018 for suicidal ideation and acute kidney injury. He was found to have a creatinine of 1.64. During his hospital course, the patient was seen by hospitalist service. He had a chest x- ray on 08/19/2018. At that time it showed mild basilar opacity, probably subsegmental atelectasis with trace pleural fluid. Then, he had a CT scan of the chest on 09/07/2018 which showed suspected left hilar mass, mild congestive heart failure with small bilateral pleural effusions, left upper lobe pneumonia and focal atypical appearing infiltrate in the right middle lobe with dependent atelectasis of both lower lobes. He was started on broad-spectrum antibiotics. The patient had a V/Q scan on 09/08/2018 which showed a low probability for pulmonary embolism. Helicat was called for increased O2 requirements and the patient was subsequently transferred to [facility] and Critical Care Medicine was consulted for critical care management. When seen, the patient was on partial nonrebreather mask with a saturation of 100%. Blood pressure 151/70 with a pulse of 89. The patient states that he quit smoking over 20 years ago. He does not use any inhalers or nebulizers at home. He denies any nausea, vomiting or abdominal pain. 09/11 Patient is lying in bed in NAD. Afebrile. 09/12 Patient is lying in bed in NAD. On 4L oxygen. Afebrile. Renal function worse today with Cr: 2.70 from 1.81 09/13 Patient is lying in bed in NAD. Afebrile, Renal function is worsening with Cr: 3.04 from 2.70 09/14 Patient dropped his sats overnight placed on partial rebreather, CXR this morning showed b/l pulm infiltrates. Given Lasix 40mg IV x1. Afebrile. Subjective 09/15: Afebrile. Lying in bed in no acute distress. Currently on high flow at 90% nasal cannula. 09/16 Patient is on high flow oxygen 30L with 90% FIO2. Afebrile: 09/17 Patient is on 35L high flow oxyge with 60% FIO2. Awake and alert, Afebrile. 09/18: Patient currently more critical FiO2 requirement has increased overnight currently on 90% FiO2 with high flow oxygen to maintain sat above 90%. Chest x- ray shows severe bilateral upper lobe infiltrates with appearance of pulmonary edema. With Bumex IV push patient has urine output more than 2.5 L, however not achieving adequate and negative balance. BUN 18 today with creatinine of 3.3. Will discontinue IV Bumex and start Bumex infusion at 1 mg/h along with IV albumin. Objective Vital Signs / I&O: Vital Signs 09/17/18 08:00 09/17/18 09:00 09/17/18 09:01 Temperature 98.6 F Pulse Rate 76 89 96 H Respiratory Rate 16 27 H 22 Blood Pressure 142/63 H 134/66 Pulse Oximetry 92 L 96 96 09/17/18 10:00 09/17/18 11:00 09/17/18 12:00 Temperature 97.8 F Pulse Rate 86 75 95 H Respiratory Rate 20 15 24 Blood Pressure 146/63 H 136/75 125/101 H Pulse Oximetry 94 L 96 95 09/17/18 12:18 09/17/18 13:00 09/17/18 13:56 Temperature Pulse Rate 83 92 H 91 H Respiratory Rate 20 22 24 Blood Pressure 142/62 H 142/64 H Pulse Oximetry 96 96 86 L 09/17/18 14:00 09/17/18 15:00 09/17/18 16:00 Temperature 97.7 F Pulse Rate 79 94 H 91 H Respiratory Rate 26 H 21 22 Blood Pressure Pulse Oximetry 89 L 87 L 89 L 09/17/18 18:00 09/17/18 20:00 09/17/18 20:16 Temperature 98 F Pulse Rate 91 H 114 H 100 H Respiratory Rate 26 H 22 Blood Pressure 132/61 Pulse Oximetry 90 L 93 L 09/17/18 22:00 09/18/18 00:00 09/18/18 00:25 Temperature 98.4 F Pulse Rate 64 67 65 Respiratory Rate 16 16 Blood Pressure 140/74 Pulse Oximetry 90 L 93 L 09/18/18 02:00 09/18/18 04:00 09/18/18 04:34 Temperature 97.5 F L Pulse Rate 68 83 82 Respiratory Rate 17 20 Blood Pressure 154/68 H Pulse Oximetry 92 L 92 L 09/18/18 06:00 Temperature Pulse Rate 78 Respiratory Rate Blood Pressure Pulse Oximetry Intake & Output 09/17/18 09/18/18 09/18/18 18:59 06:59 18:59 Intake Total 750 / 750 100 / 100 Balance 750 / 750 100 / 100 Weight 105 kg Intake: IV 100 / 100 100 / 100 Zosyn 3.375 GM Premix 50 ML @ 100 / 100 100 / 100 100 mls/hr IV.SIG Q6H ZEKE Rx#: [id number] Oral 650 / 650 0 / 0 Other: # Voids 2 # Incontinent Voids 4 Date of Last Bowel Movement 09/17/18 09/17/18 # Incontinent Bowel Movements 2 1 Result Diagrams: 09/18/18 04:01 09/18/18 04:01 Objective Remarks: GENERAL: Patient is 78 yo lying in bed lethargic on 5 flow nasal cannula 90% FiO2 SKIN: Warm and dry. HEAD: Normocephalic. EYES: No scleral icterus. No injection or drainage. NECK: Supple, trachea midline. No JVD or lymphadenopathy. CARDIOVASCULAR: Regular rate and rhythm without murmurs, gallops, or rubs. RESPIRATORY: Breath sounds equal bilaterally. Bilateral significant coarse crackles and rhonchi predominantly in the upper lobe region GASTROINTESTINAL: Abdomen soft, non-tender, nondistended. MUSCULOSKELETAL: No cyanosis, 2+ pedal edema NEURO: Lethargic but wakes up easily follows commands. No focal deficits. Assessment and Plan - Assessment and Plan Plan: ASSESSMENT 1. Acute hypoxemic respiratory failure 2. Severe pulmonary edema 3. Left upper lobe pneumonia pr CT chest. 4. Acute kidney failure worsening 5. Agitated delirium 6. Coronary artery disease. 7. Diabetes mellitus. 8. Hypertension. 9. Chronic obstructive pulmonary disease. 10. Elevated BMI. 11. Leukocytosis 12. Transaminitis 13. Anemia. Plan Neuro: Monitor neuro status. Psych is following. Seroquel on hold Receiving Haldol, Ativan and Benadryl as needed for agitation Pulm: Respiratory status has further deteriorated and the chest x-ray shows worsening pulmonary edema Currently on 90% FiO2, due to psychiatric problems and agitation patient may not tolerate BiPAP Attempt aggressive diuresis with IV Bumex infusion, may need mechanical ventilation Bronchodilators with albuterol/ipratropium aerosols every 4 hours with albuterol aerosols every 2 hours as needed dyspnea, On Solu-Medrol 40 mg IVQ12, Symbicort 160/4.5 two puffs b.i.d. Pulm is following-Dr. Garcia CXR 09/16-No significant interval change with persistent prominent bilateral upper lung zone opacity. CV: Cardizem 60 mg QID Monitor HR and BP keep MAP>65mmHg Echo on 08/30/2018 EF of 50% to 55%. PA pressure 32 mmHg. : Monitor renal function, I's and O's, and avoid nephrotoxins. Renal US: No masses, no hydronephrosis Cr: 3.3 today, UOP: 2.6L in 24 hrs, but not achieving adequate negative fluid balance Discontinue IV Bumex push, start Bumex infusion at 1 mg/h and IV albumin. If not achieving negative balance will need hemodialysis for fluid removal His pulmonary edema and respiratory status is getting worse Renal is following- Dr. Krueger. Discussed with ARF likely due to ATN 2nd Vanco tox. GI: on pantoprazole 40 mg IV daily for GI prophylaxis. On cardiac diet, keep NPO until resp status stabilizes Monitor LFT's, check US liver ID: On abx Azithromycin, piperacillin/tazobactam. DC azithromycin today received 9 days Monitor for signs of infection(fever and WBC). Follow-up C-diff PCR 09/12: normal resp zeb strep pneumonia and legionella urinary antigen negative Heme: Monitor CBC. Endo: SSI with aspart insulin to medium scale with Accu-Chek for glycemic Continue allopurinol 100 mg daily GI prophylaxis with P pantoprazole 40 mg daily DVT prophylaxis with SCD and heparin subcu Patient currently has deteriorated requiring 90% FiO2 in acute hypoxemic respiratory failure. This has appearance of worsening pulmonary edema. IV Bumex infusion started. Need [place] for accurate intake output hourly. His renal function has worsened his BUN is 80 creatinine is 3.3 if his oxygenation does not improve he may need intubation and mechanical ventilation. He may also require dialysis for fluid removal and worsening kidney function CCT 35 MIN
[2018-09-18 07:59] LABS: Lymphocytes 4 % (9-44); Myelocytes 1 % (0-0); Platelet Estimate Normal (Normal); Platelet Morphology Normal (Normal); Tallied Nucleated RBC 3 (0-0)
[2018-09-18] MEDS: Bumetanide Inj 25 MG/100 ML BAG IV.CONT SCH (08:59)
[2018-09-18] MEDS: Heparin - SQ 10,000 UNITS/ML Vial SQ SCH ×2 (09:00→20:44)
[2018-09-18] MEDS: Albumin Human 25% Inj 100 ML IV.SIG SCH ×2 (09:00→20:44)
[2018-09-18] MEDS: MethylPREDNISolone Sod Succinate Inj 40 MG/ML Vial IV.PUSH SCH ×2 (09:00→21:13)
[2018-09-18] MEDS: Pantoprazole Inj 40 MG Vial IV.PUSH SCH (09:00)
--- NOTE | 2018-09-18 10:10 | P.PNNP ---
Subjective Interval history: Patient is short of breath, has been agitated all night, was given sedation, patient complain of increasing shortness of breath and was placed on Bumex drip this morning Chest x-ray showed increasing opacities and volume overload Physical Exam Vital signs: Vital Signs 09/17/18 11:00 09/17/18 12:00 09/17/18 12:18 Temperature 97.8 F Pulse Rate 75 95 H 83 Respiratory Rate 15 24 20 Blood Pressure 136/75 125/101 H 142/62 H Pulse Oximetry 96 95 96 09/17/18 13:00 09/17/18 13:56 09/17/18 14:00 Temperature Pulse Rate 92 H 91 H 79 Respiratory Rate 22 24 26 H Blood Pressure 142/64 H Pulse Oximetry 96 86 L 89 L 09/17/18 15:00 09/17/18 16:00 09/17/18 18:00 Temperature 97.7 F Pulse Rate 94 H 91 H 91 H Respiratory Rate 21 22 Blood Pressure Pulse Oximetry 87 L 89 L 09/17/18 20:00 09/17/18 20:16 09/17/18 22:00 Temperature 98 F Pulse Rate 114 H 100 H 64 Respiratory Rate 26 H 22 Blood Pressure 132/61 Pulse Oximetry 90 L 93 L 09/18/18 00:00 09/18/18 00:25 09/18/18 02:00 Temperature 98.4 F Pulse Rate 67 65 68 Respiratory Rate 16 16 Blood Pressure 140/74 Pulse Oximetry 90 L 93 L 09/18/18 04:00 09/18/18 04:34 09/18/18 06:00 Temperature 97.5 F L Pulse Rate 83 82 78 Respiratory Rate 17 20 Blood Pressure 154/68 H Pulse Oximetry 92 L 92 L 09/18/18 08:19 Temperature Pulse Rate 82 Respiratory Rate 24 Blood Pressure Pulse Oximetry 97 Intake & Output 09/17/18 09/18/18 09/18/18 18:59 06:59 18:59 Intake Total 750 / 750 100 / 100 Balance 750 / 750 100 / 100 Weight 105 kg Intake: IV 100 / 100 100 / 100 Zosyn 3.375 GM Premix 50 ML @ 100 / 100 100 / 100 100 mls/hr IV.SIG Q6H ZEKE Rx#: [id number] Oral 650 / 650 0 / 0 Other: # Voids 2 # Incontinent Voids 4 Date of Last Bowel Movement 11/13/18 11/13/18 # Incontinent Bowel Movements 2 1 Narrative: GENERAL: Well-nourished,Obese elderly W/M in increasing distress SKIN: Warm and dry. HEAD: Normocephalic. EYES: No scleral icterus. No injection or drainage. NECK: Supple, trachea midline. No JVD or lymphadenopathy. CARDIOVASCULAR: Irregular rate and rhythm tachycardia. RESPIRATORY: Breath sounds diminished at bases. Has Wheezes and Crackles at bases. GASTROINTESTINAL: Abdomen soft, non-tender, nondistended. EXTREMITIES: 2+ + edema of legs. NEUROLOGICAL: Awake, Non-focal. Assessment and Plan - Assessment (1) Acute renal failure Code(s): N17.9 - Acute kidney failure, unspecified Status: Acute (2) COPD (chronic obstructive pulmonary disease) Code(s): J44.9 - Chronic obstructive pulmonary disease, unspecified Status: Acute (3) Pneumonia Code(s): J18.9 - Pneumonia, unspecified organism Status: Acute (4) Mood disorder due to known physiological condition with depressive features Code(s): F06.31 - Mood disorder due to known physiological condition with depressive features Status: Acute (5) Gout Code(s): M10.9 - Gout, unspecified Status: Acute (6) Hypertension Code(s): I10 - Essential (primary) hypertension Status: Acute - Plan Patient has acute tubular necrosis likely due to vancomycin levels are high Creatinine 2.7 -> 3 -> 3.2 -> 3.3-3.3-3.29-3.30 BUN 80 Bumex drip started patient is in acute respiratory distress, discussed with patient that he may need hemodialysis Trying to diurese Monitor intake and output Discussed with Dr. Watkins He is aware that patient may need Vas-Cath and dialysis by tomorrow Ongoing peripheral edema Dyspnea yesterday, was on non rebreather oxygen yesterday and no on high flow nasal cannula No need for dialysis at this point - monitor UOP and respiratory status Increasing urine output
[2018-09-18] MEDS: Allopurinol 100 MG Tablet PO SCH (10:33)
[2018-09-18] MEDS: dilTIAZem 60 MG Tablet PO SCH ×4 (10:33→20:44)
[2018-09-18] MEDS: Budesonide-Formoterol 160/4.5 MCG 6 GM Inhaler INH SCH ×2 (10:34→23:59)
[2018-09-18 12:49] LABS: ABG Base Excess 2.3 mmol/L (-2-2); ABG PCO2 41 mmHg (38-42); ABG PO2 57 mmHG (61-120)
[2018-09-18 16:31] LABS: Amorphous Sediment,Urine Few /hpf; Bacteria,Urine Rare /hpf; Bilirubin,Urine Negative (Negative); Clarity,Urine Hazy (Clear); Color,Urine Yellow (Yellw/Straw); Glucose,Urine (UA) Negative (Negative); Leukocyte Esterase,Urine Negative (Negative); Mucus,Urine Few /lpf (Occasional); Nitrite,Urine Negative (Negative); Specific Gravity,Urine 1.012 (1.002-1.035); Squamous Epithelial Cell,Urine <1 /hpf (0-5); Uric Acid Crystals,Urine Rare /hpf
--- NOTE | 2018-09-18 18:08 | P.PN ---
Subjective Interval history: Up in a chair and on High flow at 60 %. Off Bumex drip. CXR still with upper lobe infiltrates. Physical Exam Vital signs: Vital Signs 09/17/18 20:00 09/17/18 20:16 09/17/18 22:00 Temperature 98 F Pulse Rate 114 H 100 H 64 Respiratory Rate 26 H 22 Blood Pressure 132/61 Pulse Oximetry 90 L 93 L 09/18/18 00:00 09/18/18 00:25 09/18/18 02:00 Temperature 98.4 F Pulse Rate 67 65 68 Respiratory Rate 16 16 Blood Pressure 140/74 Pulse Oximetry 90 L 93 L 09/18/18 04:00 09/18/18 04:34 09/18/18 06:00 Temperature 97.5 F L Pulse Rate 83 82 78 Respiratory Rate 17 20 Blood Pressure 154/68 H Pulse Oximetry 92 L 92 L 09/18/18 08:00 09/18/18 08:19 09/18/18 10:00 Temperature 98 F Pulse Rate 78 82 101 H Respiratory Rate 16 24 Blood Pressure 142/77 H Pulse Oximetry 98 97 09/18/18 12:00 09/18/18 14:00 09/18/18 16:00 Temperature 97.9 F 97.8 F Pulse Rate 79 88 87 Respiratory Rate 17 24 Blood Pressure 161/67 H 149/67 H Pulse Oximetry 97 88 L Intake & Output 09/17/18 09/18/18 09/18/18 18:59 06:59 18:59 Intake Total 750 / 750 100 / 100 450 / 450 Balance 750 / 750 100 / 100 450 / 450 Weight 105 kg Intake: IV 100 / 100 100 / 100 450 / 450 Flexbumin 25% Inj 100 ML @ 60 100 / 100 mls/hr IV.SIG Q12H ZEKE Rx#: [id number] Azithromycin Inj 500 MG In NS 250 / 250 Inj 250 ML @ 250 mls/hr IV.SIG Q24H ZEKE Rx#:[id number] Zosyn 3.375 GM Premix 50 ML @ 100 / 100 100 / 100 100 / 100 100 mls/hr IV.SIG Q6H ZEKE Rx#: [id number] Oral 650 / 650 0 / 0 Other: # Voids 2 # Incontinent Voids 4 Date of Last Bowel Movement 09/17/18 09/17/18 09/17/18 # Incontinent Bowel Movements 2 1 Narrative: GENERAL: Well-nourished,Obese elderly W/M in mild distress SKIN: Warm and dry. HEAD: Normocephalic. EYES: No scleral icterus. No injection or drainage. NECK: Supple, trachea midline. No JVD or lymphadenopathy. CARDIOVASCULAR: Irregular rate and rhythm tachycardia. RESPIRATORY: Breath sounds diminished at bases. Has Wheezes and Crackles at bases. GASTROINTESTINAL: Abdomen soft, non-tender, nondistended. EXTREMITIES: 2 + + edema of legs. NEUROLOGICAL: Awake, Non-focal. - Urinary Catheter Management Indwelling Urethral Catheter Cath placed during this visit: yes Reason for continuing: Hourly intake/output Insertion date: 09/18/18 Insertion time: 09:00 Results - Labs CBC & Chem 7: 09/18/18 04:01 09/18/18 04:01 Laboratory Results - last 24 hr 09/17/18 09/17/18 09/18/18 21:06 23:38 04:01 WBC 22.5 H RBC 3.73 L Hgb 10.2 L Hct 30.9 L MCV 82.8 MCH 27.2 MCHC 32.8 RDW 17.8 H Plt Count 289 MPV 7.6 Prelim Diff (Auto) Slide review pending Neut % (Auto) 94.8 H Lymph % (Auto) 2.6 L Ogle % (Auto) 2.3 Eos % (Auto) 0.0 Baso % (Auto) 0.3 Neut # (Auto) 21.3 H Lymph # (Auto) 0.6 L Ogle # (Auto) 0.5 Eos # (Auto) 0.0 Baso # (Auto) 0.1 WBC Differential Manual diff final Seg Neuts % (Manual) 90 H Band Neuts % (Manual) 5 Lymphocytes % (Manual) 4 L Myelocytes % (Man) 1 H Abs Neuts (Manual) 21.6 H Nucleated RBCs/100 WBC 3 H Differential Comment . Platelet Estimate Normal Platelet Morphology Normal Puncture Site Right radial Patient Temperature 98.6 O2 Saturation 89 L* ABG pH 7.38 ABG pCO2 43 H ABG pO2 67 ABG HCO3 25 ABG O2 Content 11.9 L ABG Base Excess 0.5 ABG Methemoglobin 1.7 Cristian Test + Hemoglobin 9.4 L Carboxyhemoglobin 1.2 O2 Delivery Device High flow cannula Liter Flow 35.00 Vent Setting Inspired O2 100 Critical Value Yes Sodium Potassium Chloride Carbon Dioxide Anion Gap BUN Creatinine Estimated GFR POC Glucose 87 Random Glucose Calcium Total Bilirubin AST ALT Alkaline Phosphatase Total Protein Albumin Urine Color Urine Clarity Urine pH Ur Specific [place] Urine Protein Urine Glucose (UA) Urine Ketones Urine Occult Blood Urine Nitrate Urine Bilirubin Urine Urobilinogen Ur Leukocyte Esterase Urine RBC Urine WBC Ur Squamous Epith Cells Uric Acid Crystals Amorphous Sediment Urine Bacteria Urine Mucus Micro UA Comment Ur Microscopic Review Urine Culture Comments 09/18/18 09/18/18 09/18/18 04:01 05:19 09:00 WBC RBC Hgb Hct MCV MCH MCHC RDW Plt Count MPV Prelim Diff (Auto) Neut % (Auto) Lymph % (Auto) Ogle % (Auto) Eos % (Auto) Baso % (Auto) Neut # (Auto) Lymph # (Auto) Ogle # (Auto) Eos # (Auto) Baso # (Auto) WBC Differential Seg Neuts % (Manual) Band Neuts % (Manual) Lymphocytes % (Manual) Myelocytes % (Man) Abs Neuts (Manual) Nucleated RBCs/100 WBC Differential Comment Platelet Estimate Platelet Morphology Puncture Site Patient Temperature O2 Saturation ABG pH ABG pCO2 ABG pO2 ABG HCO3 ABG O2 Content ABG Base Excess ABG Methemoglobin Cristian Test Hemoglobin Carboxyhemoglobin O2 Delivery Device Liter Flow Vent Setting Inspired O2 Critical Value Sodium 144 Potassium 3.6 Chloride 104 Carbon Dioxide 29.0 Anion Gap 11 BUN 80 H Creatinine 3.30 H Estimated GFR 18 L POC Glucose 139 H Random Glucose 117 H Calcium 8.5 Total Bilirubin 0.7 AST 72 H ALT 157 H Alkaline Phosphatase 67 Total Protein 6.9 D Albumin 2.9 L Urine Color Yellow Urine Clarity Hazy H Urine pH 5.0 Ur Specific [place] 1.012 Urine Protein 30 H Urine Glucose (UA) Negative Urine Ketones Negative Urine Occult Blood Small H Urine Nitrate Negative Urine Bilirubin Negative Urine Urobilinogen Less than 2 Ur Leukocyte Esterase Negative Urine RBC 1 Urine WBC 2 Ur Squamous Epith Cells <1 Uric Acid Crystals Rare H Amorphous Sediment Few H Urine Bacteria Rare H Urine Mucus Few H Micro UA Comment Culture not ind Ur Microscopic Review Not Reportable Urine Culture Comments Culture not ind 09/18/18 09/18/18 12:40 13:29 WBC RBC Hgb Hct MCV MCH MCHC RDW Plt Count MPV Prelim Diff (Auto) Neut % (Auto) Lymph % (Auto) Ogle % (Auto) Eos % (Auto) Baso % (Auto) Neut # (Auto) Lymph # (Auto) Ogle # (Auto) Eos # (Auto) Baso # (Auto) WBC Differential Seg Neuts % (Manual) Band Neuts % (Manual) Lymphocytes % (Manual) Myelocytes % (Man) Abs Neuts (Manual) Nucleated RBCs/100 WBC Differential Comment Platelet Estimate Platelet Morphology Puncture Site Right radial Patient Temperature 98.6 O2 Saturation 87 L* ABG pH 7.43 H ABG pCO2 41 ABG pO2 57 L* ABG HCO3 26 ABG O2 Content 10.2 L ABG Base Excess 2.3 H ABG Methemoglobin 1.6 Cristian Test Present Hemoglobin 8.3 L Carboxyhemoglobin 1.4 O2 Delivery Device Hfnc Liter Flow Vent Setting High flow 40 Inspired O2 55 Critical Value Yes Sodium Potassium Chloride Carbon Dioxide Anion Gap BUN Creatinine Estimated GFR POC Glucose 234 H Random Glucose Calcium Total Bilirubin AST ALT Alkaline Phosphatase Total Protein Albumin Urine Color Urine Clarity Urine pH Ur Specific [place] Urine Protein Urine Glucose (UA) Urine Ketones Urine Occult Blood Urine Nitrate Urine Bilirubin Urine Urobilinogen Ur Leukocyte Esterase Urine RBC Urine WBC Ur Squamous Epith Cells Uric Acid Crystals Amorphous Sediment Urine Bacteria Urine Mucus Micro UA Comment Ur Microscopic Review Urine Culture Comments - Imaging Impressions Chest X-Ray 09/18/18 00:00 CONCLUSION: Bilateral opacities remain with dense consolidation in the upper lobes. This does not appear significantly changed. 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 Acute hypoxemic respiratory insufficiency. 2. Left upper lobe pneumonia 3. B/l pulm infiltrates 4. Acute kidney injury. 5. Anemia. 6. Coronary artery disease. 7. Diabetes mellitus. 8. Hypertension. 9. Chronic obstructive pulmonary disease. 10. Obesity. Plan Pulm: 1)Continue with High flow N/C 8l and FIo2 60 % Bronchodilators, and Symbicort 160/4.5 two puffs b.i.d. cont solumedrol IV 40 mg IV Q12H Will use BIPAP 12/ 5 cm at HS and PRN if sats <92 2) Cont Albumin and Cont Bumex 1 mg IV per Renal. Rpt BMP, CBC, CXR in am. 3) Cont Antibiotics 4) Cont Duoneb nebs qid. 5) IS at bedside q3h
[2018-09-18 21:27] LABS: Albumin 2.9 g/dL (3.4-5.0); Anion Gap 12 meq/L (5-15); Aspartate Aminotransferase 53 U/L (15-37); Blood Urea Nitrogen 80 mg/dL (7-18); Carbon Dioxide 28.5 meq/L (21.0-32.0); Chloride 103 meq/L (98-107); Glomerular Filtration Rate 19 mL/min (>89); Glucose,Random 177 mg/dL (74-106); Potassium 3.2 meq/L (3.5-5.1); Sodium 143 meq/L (136-145)
[2018-09-18 21:31] LABS: Alanine Aminotransferase 122 U/L (12-78); Alkaline Phosphatase 60 U/L (45-117); Total Protein 6.1 g/dL (6.4-8.2)
[2018-09-19] MEDS ORDERED: Benzonatate 100 MG Capsule PO PRN (02:19)
[2018-09-19] MEDS ORDERED: Potassium Chlor 20 mEq Premix 20 MEQ/100 ML PIGGYBACK IV.SIG ONE (02:21)
[2018-09-19 04:40] LABS: Hematocrit 23.6 % (39.0-51.0); Hemoglobin 7.8 gm/dL (13.0-17.0); Mean Corpuscular HGB Conc 33.3 % (32.0-36.0); Mean Corpuscular Hemoglobin 27.5 pg (27.0-34.0); Mean Corpuscular Volume 82.7 fL (80.0-100.0); Mean Platelet Volume 7.7 fL (7.0-11.0); Platelet Count 211 th/mm3 (150-450); Red Blood Count 2.85 mil/mm3 (4.50-5.90); Red Cell Distribution Width 17.5 % (11.6-17.2); White Blood Count 18.8 th/mm3 (4.0-11.0)
[2018-09-19] MEDS: Piperacil/Tazo 3.375 GM Premix 50 ML IV.SIG SCH ×4 (04:43→21:55)
--- NOTE | 2018-09-19 04:44 | XR ---
EXAM DATE: 09/19/2018 4:13 AM EST AGE/SEX: 78 years / Male INDICATIONS: Shortness of breath, follow-up pulmonary infiltrates.. CLINICAL DATA: This is the patient's subsequent encounter. Patient reports that signs and symptoms h ave been present for 2 weeks and indicates a pain score of 0/10. MEDICAL/SURGICAL HISTORY: Diabetes. Chronic obstructive pulmonary disease. Hypertension. Gou t. Hypokalemia. Acute renal failure. None. COMPARISON: [facility] [place], CHEST 1V SINGLE AP, 09/18/2018. . FINDINGS: A single AP erect view of the chest was obtained and again demonstrates dense consolidative opacity i n both upper lobes right greater than left. Consolidation remains in the right lung base as well whic h likely is not significant change. The heart is mildly prominent. Both costophrenic angles are blunt ed. The bony thorax remains intact with multiple overlying electrocardiogram leads. CONCLUSION: No significant change. Dense consolidative opacities as well as apparent small effusions and cardiome balta. The findings are most characteristic of congestive heart failure. Electronically signed by: Maurizio Whitlock MD 09/19/2018 4:42 AM EST
[2018-09-19 05:08] LABS: Albumin 3.1 g/dL (3.4-5.0); Anion Gap 12 meq/L (5-15); Aspartate Aminotransferase 49 U/L (15-37); Blood Urea Nitrogen 81 mg/dL (7-18); Chloride 103 meq/L (98-107); Glomerular Filtration Rate 19 mL/min (>89); Glucose,Random 194 mg/dL (74-106); Potassium 3.1 meq/L (3.5-5.1); Sodium 143 meq/L (136-145)
[2018-09-19 05:09] LABS: Alanine Aminotransferase 113 U/L (12-78)
[2018-09-19 05:11] LABS: Alkaline Phosphatase 56 U/L (45-117); Total Protein 6.2 g/dL (6.4-8.2)
[2018-09-19] MEDS: Insulin NovoLOG Aspart Correctional Sugar Inj SQ SCH ×3 (05:31→17:46)
--- NOTE | 2018-09-19 08:23 | P.PNCC ---
Subjective Subjective Remarks/Hospital Course: Patient is a 78-year-old male with a past medical history of ? COPD, hypertension, diabetes mellitus, coronary artery disease and gout. He was admitted to inpatient medication psych on 08/17/2018 for suicidal ideation and acute kidney injury. He was found to have a creatinine of 1.64. During his hospital course, the patient was seen by hospitalist service. He had a chest x- ray on 08/19/2018. At that time it showed mild basilar opacity, probably subsegmental atelectasis with trace pleural fluid. Then, he had a CT scan of the chest on 09/07/2018 which showed suspected left hilar mass, mild congestive heart failure with small bilateral pleural effusions, left upper lobe pneumonia and focal atypical appearing infiltrate in the right middle lobe with dependent atelectasis of both lower lobes. He was started on broad-spectrum antibiotics. The patient had a V/Q scan on 09/08/2018 which showed a low probability for pulmonary embolism. Helicat was called for increased O2 requirements and the patient was subsequently transferred to [facility] and Critical Care Medicine was consulted for critical care management. When seen, the patient was on partial nonrebreather mask with a saturation of 100%. Blood pressure 151/70 with a pulse of 89. The patient states that he quit smoking over 20 years ago. He does not use any inhalers or nebulizers at home. He denies any nausea, vomiting or abdominal pain. 09/11 Patient is lying in bed in NAD. Afebrile. 09/12 Patient is lying in bed in NAD. On 4L oxygen. Afebrile. Renal function worse today with Cr: 2.70 from 1.81 09/13 Patient is lying in bed in NAD. Afebrile, Renal function is worsening with Cr: 3.04 from 2.70 09/14 Patient dropped his sats overnight placed on partial rebreather, CXR this morning showed b/l pulm infiltrates. Given Lasix 40mg IV x1. Afebrile. Subjective 09/15: Afebrile. Lying in bed in no acute distress. Currently on high flow at 90% nasal cannula. 09/16 Patient is on high flow oxygen 30L with 90% FIO2. Afebrile: 09/17 Patient is on 35L high flow oxyge with 60% FIO2. Awake and alert, Afebrile. 09/18: Patient currently more critical FiO2 requirement has increased overnight currently on 90% FiO2 with high flow oxygen to maintain sat above 90%. Chest x- ray shows severe bilateral upper lobe infiltrates with appearance of pulmonary edema. With Bumex IV push patient has urine output more than 2.5 L, however not achieving adequate and negative balance. BUN 18 today with creatinine of 3.3. Will discontinue IV Bumex and start Bumex infusion at 1 mg/h along with IV albumin. 09/19: Agitated overnight. BUN and creatinine unchanged from yesterday. Started on bumex gtt yesterday. It doesn't appear that his urine output was charted during the day shift yesterday but he made 1200 cc of urine overnight and was - 700 cc for the shift. He is currently on high flow 40 L at 100%. Patient states "I want to get out of bed to a chair today". Objective Vital Signs / I&O: Vital Signs 09/18/18 10:00 09/18/18 12:00 09/18/18 14:00 Temperature 97.9 F Pulse Rate 101 H 79 88 Respiratory Rate 17 Blood Pressure 161/67 H Pulse Oximetry 97 09/18/18 16:00 09/18/18 17:00 09/18/18 18:00 Temperature 97.8 F Pulse Rate 87 89 99 H Respiratory Rate 24 24 25 H Blood Pressure 149/67 H 140/76 148/68 H Pulse Oximetry 88 L 91 L 89 L 09/18/18 19:00 09/18/18 19:54 09/18/18 20:00 Temperature 97.1 F L Pulse Rate 79 92 H 95 H Respiratory Rate 19 16 31 H Blood Pressure 135/63 140/107 H Pulse Oximetry 94 L 95 89 L 09/18/18 21:00 09/18/18 22:00 09/18/18 23:00 Temperature Pulse Rate 80 88 86 Respiratory Rate 22 21 26 H Blood Pressure 150/68 H 141/66 H 139/65 Pulse Oximetry 89 L 86 L 85 L 09/19/18 00:00 09/19/18 00:04 09/19/18 00:05 Temperature Pulse Rate 84 85 Respiratory Rate 30 H 22 Blood Pressure 137/67 Pulse Oximetry 86 L 92 L 09/19/18 01:00 09/19/18 02:00 09/19/18 03:00 Temperature Pulse Rate 83 78 80 Respiratory Rate 27 H 28 H 28 H Blood Pressure 149/75 H 143/64 H 146/70 H Pulse Oximetry 87 L 85 L 84 L 09/19/18 03:46 09/19/18 03:47 09/19/18 04:00 Temperature Pulse Rate 81 78 Respiratory Rate 24 27 H Blood Pressure 137/65 Pulse Oximetry 92 L 86 L 09/19/18 05:00 09/19/18 06:00 09/19/18 07:52 Temperature Pulse Rate 81 81 81 Respiratory Rate 29 H 27 H 22 Blood Pressure 145/89 H 151/67 H Pulse Oximetry 85 L 88 L 90 L Intake & Output 09/18/18 09/19/18 09/19/18 18:59 06:59 18:59 Intake Total 690 / 690 1600 / 1600 Output Total 1400 / 1400 700 / 700 Balance -710 / -710 900 / 900 Weight 107.2 kg Intake: IV 450 / 450 300 / 300 Flexbumin 25% Inj 100 ML @ 60 100 / 100 100 / 100 mls/hr IV.SIG Q12H ZEKE Rx#: [id number] Azithromycin Inj 500 MG In NS 250 / 250 Inj 250 ML @ 250 mls/hr IV.SIG Q24H ZEKE Rx#:[id number] Zosyn 3.375 GM Premix 50 ML @ 100 / 100 100 / 100 100 mls/hr IV.SIG Q6H ZEKE Rx#: [id number] KCl 20 mEq Premix Inj 20 meq In 100 / 100 100 ml @ 50 mls/hr IV.SIG ONCE ONE Rx#:[id number] Oral 240 / 240 1300 / 1300 Output: Urine 1400 / 1400 Urine Amount (Catheter) 700 / 700 Indwelling Urethral Catheter 700 / 700 Other: Date of Last Bowel Movement 09/17/18 09/17/18 Result Diagrams: 09/19/18 02:46 09/19/18 02:46 Objective Remarks: GENERAL: Elderly male sitting in bed, awake and alert SKIN: Warm and dry. HEAD: Normocephalic. EYES: No scleral icterus. No injection or drainage. NECK: Supple, trachea midline. No JVD or lymphadenopathy. CARDIOVASCULAR: Regular rate and rhythm without murmurs, gallops, or rubs. RESPIRATORY: Coarse rhonchorous breath sounds bilaterally GASTROINTESTINAL: Abdomen soft, non-tender, nondistended. MUSCULOSKELETAL: No cyanosis, 2+ pedal edema NEURO: Awake, alert, conversant, no focal deficits Assessment and Plan - Assessment and Plan Plan: ASSESSMENT 1. Acute hypoxemic respiratory failure 2. Severe pulmonary edema 3. Left upper lobe pneumonia pr CT chest. 4. Acute kidney failure worsening 5. Agitated delirium 6. Coronary artery disease. 7. Diabetes mellitus. 8. Hypertension. 9. Chronic obstructive pulmonary disease. 10. Elevated BMI. 11. Leukocytosis 12. Transaminitis 13. Anemia. Plan Neuro: Monitor neuro status. Psych is following. Will restart qhs seroquel, very low-dose ativan as needed for agitation Pulm: Respiratory status has further deteriorated and the chest x-ray shows worsening pulmonary edema Currently on 90% FiO2, due to psychiatric problems and agitation patient may not tolerate BiPAP Continue aggressive diuresis with IV Bumex infusion, may need mechanical ventilation Bronchodilators with albuterol/ipratropium aerosols every 4 hours with albuterol aerosols every 2 hours as needed dyspnea, On Solu-Medrol 40 mg IVQ12, Symbicort 160/4.5 two puffs b.i.d. Pulm is following-Dr. Garcia CXR 09/19-No significant interval change with bilateral pulmonary edema CV: Cardizem 60 mg QID Monitor HR and BP keep MAP>65mmHg Echo on 08/30/2018 EF of 50% to 55%. PA pressure 32 mmHg. : Monitor renal function, I's and O's, and avoid nephrotoxins. Renal US: No masses, no hydronephrosis Cr: 3.3 today, UOP: 2.6L in 24 hrs, but not achieving adequate negative fluid balance Continue Bumex infusion at 1 mg/h and IV albumin. If not achieving negative balance will need hemodialysis for fluid removal His pulmonary edema and respiratory status is getting worse Renal is following- Dr. Krueger. Discussed with ARF likely due to ATN 2nd Vanco tox. GI: on pantoprazole 40 mg IV daily for GI prophylaxis. On cardiac/ diabetic diet Monitor LFT's, US liver showed only ascites ID: On abx piperacillin/tazobactam. Monitor for signs of infection(fever and WBC). Follow-up C-diff PCR 09/12: normal resp zeb strep pneumonia and legionella urinary antigen negative Heme: Monitor CBC-- Hg today 7.8, had been 10.2 yesterday but this may have been falsely elevated as his Hg prior to this has consistently been around 8-8.5 Endo: SSI with aspart insulin to medium scale with Accu-Chek for glycemic Continue allopurinol 100 mg daily GI prophylaxis with pantoprazole 40 mg daily DVT prophylaxis with SCD and heparin subcu OVERALL: This patient remains critically ill and is at high risk for deterioration. He may need intubation and initiation of hemodialysis if he does not improve with diuresis. Counseling/ Coordination of Care: This patient is critically ill with impairment of one or more vital organ systems with a high probability of imminent or life-threatening deterioration. High-complexity medical decision making was required to support vital organ function and/ or prevent deterioration in the patient's condition. Total critical care time spent is 42 minutes giving full attention to this patient. This includes examining the patient, gathering history from someone other than the patient (i.e. chart review), discussing the patient's care with other providers, ordering and interpreting laboratory values, managing the patient's agitation/ sedation requirements, re-evaluation at frequent intervals , and documentation. Amount of time is separate from teaching, counseling the patient and/or family, and exclusive of procedures. To help prompt me to consider important information that might be impacting today's encounter and assessment, information from prior notes written by myself or my colleagues may have been "brought forward" into today's note. My signature on this note, however, is an attestation that I personally performed the exam, history, and/or decision-making noted today, and, unless otherwise indicated, the interactions with patient, family, and staff as well as the review of records all occurred today. I also attest that the listed assessment and stated plan reflect my best clinical judgment today based on the combination of historical information, prior notes, and today's exam/ interactions. Code Status: Full
[2018-09-19] MEDS ORDERED: LORazepam 0.5 MG Tablet PO PRN (08:30)
[2018-09-19] MEDS: Albumin Human 25% Inj 100 ML IV.SIG SCH ×2 (08:39→21:54)
[2018-09-19] MEDS: dilTIAZem 60 MG Tablet PO SCH ×4 (08:40→21:56)
[2018-09-19] MEDS: Bumetanide Inj 25 MG/100 ML BAG IV.CONT SCH (08:40)
[2018-09-19] MEDS: Budesonide-Formoterol 160/4.5 MCG 6 GM Inhaler INH SCH ×2 (08:41→21:56)
[2018-09-19] MEDS: Heparin - SQ 10,000 UNITS/ML Vial SQ SCH ×2 (08:41→21:55)
[2018-09-19] MEDS: Allopurinol 100 MG Tablet PO SCH (08:41)
[2018-09-19] MEDS: Pantoprazole Inj 40 MG Vial IV.PUSH SCH (08:42)
[2018-09-19] MEDS ORDERED: Acetaminophen 325 MG Tablet PO PRN (10:10)
[2018-09-19] MEDS ORDERED: Heparin 10,000 UNITS/10 ML Vial (for IV use) OTHER PRN (10:10)
[2018-09-19] MEDS ORDERED: Sod Chloride 0.9% Inj 1,000 ML IV.CONT PRN (10:10)
[2018-09-19] MEDS ORDERED: Sod Chloride 0.9% Inj 1,000 ML OTHER PRN ×2 (10:10)
--- NOTE | 2018-09-19 10:10 | P.PNNP ---
Subjective Interval history: And is short of breath and cannot lay flat, moderate respiratory distress, feels weak and tired, tried on Bumex drip his condition has not improved Physical Exam Vital signs: Vital Signs 09/18/18 12:00 09/18/18 14:00 09/18/18 16:00 Temperature 97.9 F 97.8 F Pulse Rate 79 88 87 Respiratory Rate 17 24 Blood Pressure 161/67 H 149/67 H Pulse Oximetry 97 88 L 09/18/18 17:00 09/18/18 18:00 09/18/18 19:00 Temperature Pulse Rate 89 99 H 79 Respiratory Rate 24 25 H 19 Blood Pressure 140/76 148/68 H 135/63 Pulse Oximetry 91 L 89 L 94 L 09/18/18 19:54 09/18/18 20:00 09/18/18 21:00 Temperature 97.1 F L Pulse Rate 92 H 95 H 80 Respiratory Rate 16 31 H 22 Blood Pressure 140/107 H 150/68 H Pulse Oximetry 95 89 L 89 L 09/18/18 22:00 09/18/18 23:00 09/19/18 00:00 Temperature Pulse Rate 88 86 84 Respiratory Rate 21 26 H 30 H Blood Pressure 141/66 H 139/65 137/67 Pulse Oximetry 86 L 85 L 86 L 09/19/18 00:04 09/19/18 00:05 09/19/18 01:00 Temperature Pulse Rate 85 83 Respiratory Rate 22 27 H Blood Pressure 149/75 H Pulse Oximetry 92 L 87 L 09/19/18 02:00 09/19/18 03:00 09/19/18 03:46 Temperature Pulse Rate 78 80 81 Respiratory Rate 28 H 28 H 24 Blood Pressure 143/64 H 146/70 H Pulse Oximetry 85 L 84 L 09/19/18 03:47 09/19/18 04:00 09/19/18 05:00 Temperature Pulse Rate 78 81 Respiratory Rate 27 H 29 H Blood Pressure 137/65 145/89 H Pulse Oximetry 92 L 86 L 85 L 09/19/18 06:00 09/19/18 07:52 Temperature Pulse Rate 81 81 Respiratory Rate 27 H 22 Blood Pressure 151/67 H Pulse Oximetry 88 L 90 L Intake & Output 09/18/18 09/19/18 09/19/18 18:59 06:59 18:59 Intake Total 690 / 690 1600 / 1600 100 / 100 Output Total 1400 / 1400 700 / 700 Balance -710 / -710 900 / 900 100 / 100 Weight 107.2 kg Intake: IV 450 / 450 300 / 300 100 / 100 Bumex Inj 25 mg In 100 ml @ 1 100 / 100 MG/HR 4 mls/hr IV.CONT .Q24H ZEKE Rx#:[id number] Flexbumin 25% Inj 100 ML @ 60 100 / 100 100 / 100 mls/hr IV.SIG Q12H ZEKE Rx#: [id number] Azithromycin Inj 500 MG In NS 250 / 250 Inj 250 ML @ 250 mls/hr IV.SIG Q24H ZEKE Rx#:[id number] Zosyn 3.375 GM Premix 50 ML @ 100 / 100 100 / 100 100 mls/hr IV.SIG Q6H ZEKE Rx#: [id number] KCl 20 mEq Premix Inj 20 meq In 100 / 100 100 ml @ 50 mls/hr IV.SIG ONCE ONE Rx#:[id number] Oral 240 / 240 1300 / 1300 Output: Urine 1400 / 1400 Urine Amount (Catheter) 700 / 700 Indwelling Urethral Catheter 700 / 700 Other: Date of Last Bowel Movement 09/17/18 09/17/18 Narrative: GENERAL: Well-nourished,Obese elderly W/M in moderate distress SKIN: Warm and dry. HEAD: Normocephalic. EYES: No scleral icterus. No injection or drainage. NECK: Supple, trachea midline. No JVD or lymphadenopathy. CARDIOVASCULAR: Irregular rate and rhythm tachycardia. RESPIRATORY: Breath sounds diminished at bases. Has Wheezes and Crackles at bases. GASTROINTESTINAL: Abdomen soft, non-tender, nondistended. EXTREMITIES: 2 + + edema of legs. NEUROLOGICAL: Awake, Non-focal. - Urinary Catheter Management Indwelling Urethral Catheter Cath placed during this visit: yes Reason for continuing: Hourly intake/output Insertion date: 09/18/18 Insertion time: 09:00 Assessment and Plan - Assessment (1) Acute renal failure Code(s): N17.9 - Acute kidney failure, unspecified Status: Acute (2) COPD (chronic obstructive pulmonary disease) Code(s): J44.9 - Chronic obstructive pulmonary disease, unspecified Status: Acute (3) Pneumonia Code(s): J18.9 - Pneumonia, unspecified organism Status: Acute (4) Mood disorder due to known physiological condition with depressive features Code(s): F06.31 - Mood disorder due to known physiological condition with depressive features Status: Acute (5) Gout Code(s): M10.9 - Gout, unspecified Status: Acute (6) Hypertension Code(s): I10 - Essential (primary) hypertension Status: Acute - Plan Patient has acute tubular necrosis likely due to vancomycin levels are high Creatinine 2.7 -> 3 -> 3.2 -> 3.3-3.3-3.29-3.30-3.15-3.16 BUN 81 Bumex drip did not achieve desired results urine output marginally improved, he is in acute respiratory distress, discussed with patient that he need hemodialysis, explained to him that this will help him, he is agreeable Discussed with critical care intubation and Vas-Cath insertion plan Monitor intake and output He is aware that patient may need Vas-Cath and dialysis Ongoing peripheral edema Continue to monitor
[2018-09-19] MEDS ORDERED: Etomidate Inj 20 MG/10 ML Ampul IV.PUSH ONE ×2 (10:11→10:22)
[2018-09-19] MEDS: Dexmedetomidine Inj 200 MCG in Sodium Chlor 0.9% Inj 48 ML IV.CONT PRN ×3 (10:45→21:54)
[2018-09-19] MEDS: Potassium Chlor 20 mEq Premix 20 MEQ/100 ML PIGGYBACK IV.SIG SCH ×4 (11:00→16:51)
[2018-09-19] MEDS: fentaNYL 10 mcg/mL Premix Drip 2,500 MCG/250 ML BAG IV.SIG PRN (11:27)
--- NOTE | 2018-09-19 11:31 | P.PCN ---
Date of procedure: 09/19/18 Pre-op diagnosis: pulmonary edema, acute kidney failure Post-op diagnosis: same Procedure: Endotracheal intubation The patient provided verbal consent for this procedure. His O2 sats were 88-90% on high flow nasal cannula and he had not improved from a respiratory standpoint with diuresis. He required placement of a vasc cath for initiation of hemodialysis and would not tolerate lying flat without significant O2 desaturation. The decision was made to intubate him for airway protection and invasive ventilatory support of acute hypoxic respiratory failure. A time out was called and the patient was identified by wrist band. A rapid sequence intubation was performed with etomidate, rocuronium, and an 8-0 ETT was easily passed on first attempt using Glidescope. Position was confirmed by bilateral breath sounds, color change capnometry, and improvement in O2 sats. Surgeon: Sierra Cohn Condition: stable Disposition: ICU
--- NOTE | 2018-09-19 11:37 | P.PCN ---
Date of procedure: 09/19/18 Pre-op diagnosis: pulmonary edema, acute renal failure Post-op diagnosis: same Procedure: Vascular catheter placement for initiation of hemodialysis The patient provided verbal consent for this procedure. He has persistent pulmonary edema and acute kidney injury which has not improved with diuresis. The decision was made to place a vasc cath for HD to assist with fluid removal. A time out was called and the patient was identified by wrist band. He was prepped with chlorhexidine and allowed to full dry, then a full-body sterile drape was applied. I wore full sterile gown, gloves, face mask, and hat. The right IJ was visualized under ultrasound guidance and 5 cc of 1% lidocaine without epinephrine was given for local anesthesia. The vessel was then accessed using Seldinger technique and serially dilated. The catheter was then placed without difficulty and blood flow returned from both lumens, flushed with saline. The catheter was sutured in place and a Biopatch and sterile dressing were applied. The patient tolerated the procedure well with no immediate complications. Surgeon: Sierra Cohn Condition: stable Disposition: ICU
[2018-09-19 11:58] LABS: ABG Base Excess 1.6 mmol/L (-2-2); ABG PCO2 43 mmHg (38-42); ABG PO2 141 mmHG (61-120)
[2018-09-19] MEDS: MethylPREDNISolone Sod Succinate Inj 40 MG/ML Vial IV.PUSH SCH ×2 (12:40→21:56)
--- NOTE | 2018-09-19 12:40 | XR ---
EXAM DATE: 09/19/2018 12:08 PM EST AGE/SEX: 78 years / Male INDICATIONS: Post intubation and right side line placement. CLINICAL DATA: This is the patient's initial encounter. Patient reports that signs and symptoms have been present for 4 - 6 days and indicates a pain score of Nonresponsive. MEDICAL/SURGICAL HISTORY: Chronic obstructive pulmonary disease. Hypertension. Renal failure, acute. diabetes, pneumonia . COMPARISON: [facility] [place], CHEST 1V SINGLE AP, 09/19/2018. . FINDINGS: Single AP view of the chest. Endotracheal tube is now in place with the tip 2 cm above the cheryl. Ri ght-sided IJ central venous catheter is in place with the tip at the cavoatrial junction. No evidence of pneumothorax. Persistent bilateral pulmonary opacity with upper lung zone predominance. No eviden ce of pleural effusion. Cardiomediastinal silhouette unchanged. CONCLUSION: 1. Endotracheal tube in place with tip 2 cm above the cheryl. 2. Right IJ central venous catheter in place with the tip at the cavoatrial junction. No evidence of pneumothorax. 3. Persistent bilateral pulmonary opacity. Electronically signed by: Oli Garcia MD 09/19/2018 12:39 PM EST
[2018-09-19 15:37] LABS: Hepatitis A IgM Antibody Nonreactive (Nonreactive); Hepatitits B Surface Antigen Nonreactive (Nonreactive)
--- NOTE | 2018-09-19 19:43 | P.PN ---
Subjective Interval history: was intubated for respiratory failure and CHF. Now sedated and on 60 % FIO2 PEEP +10. was dialyzed. Seems better. Physical Exam Vital signs: Vital Signs 09/18/18 19:54 09/18/18 20:00 09/18/18 21:00 Temperature 97.1 F L Pulse Rate 92 H 95 H 80 Respiratory Rate 16 31 H 22 Blood Pressure 140/107 H 150/68 H Pulse Oximetry 95 89 L 89 L 09/18/18 22:00 09/18/18 23:00 09/19/18 00:00 Temperature Pulse Rate 88 86 84 Respiratory Rate 21 26 H 30 H Blood Pressure 141/66 H 139/65 137/67 Pulse Oximetry 86 L 85 L 86 L 09/19/18 00:04 09/19/18 00:05 09/19/18 01:00 Temperature Pulse Rate 85 83 Respiratory Rate 22 27 H Blood Pressure 149/75 H Pulse Oximetry 92 L 87 L 09/19/18 02:00 09/19/18 03:00 09/19/18 03:46 Temperature Pulse Rate 78 80 81 Respiratory Rate 28 H 28 H 24 Blood Pressure 143/64 H 146/70 H Pulse Oximetry 85 L 84 L 09/19/18 03:47 09/19/18 04:00 09/19/18 05:00 Temperature Pulse Rate 78 81 Respiratory Rate 27 H 29 H Blood Pressure 137/65 145/89 H Pulse Oximetry 92 L 86 L 85 L 09/19/18 06:00 09/19/18 07:00 09/19/18 07:52 Temperature Pulse Rate 81 80 81 Respiratory Rate 27 H 26 H 22 Blood Pressure 151/67 H 149/69 H Pulse Oximetry 88 L 88 L 90 L 09/19/18 08:00 09/19/18 09:00 09/19/18 10:00 Temperature 97.2 F L Pulse Rate 81 85 85 Respiratory Rate 33 H 28 H 27 H Blood Pressure 146/77 H Pulse Oximetry 91 L 86 L 88 L 09/19/18 10:30 09/19/18 11:00 09/19/18 11:47 Temperature Pulse Rate 115 H 86 Respiratory Rate 18 9 L 18 Blood Pressure Pulse Oximetry 90 L 89 L 09/19/18 12:00 09/19/18 12:53 09/19/18 13:00 Temperature Pulse Rate 86 114 H 114 H Respiratory Rate 19 24 7 L Blood Pressure 171/74 H 168/86 H Pulse Oximetry 79 L 09/19/18 13:15 09/19/18 13:30 09/19/18 13:45 Temperature Pulse Rate 73 68 67 Respiratory Rate 7 L 14 11 L Blood Pressure 120/57 L 112/57 L 98/54 L Pulse Oximetry 81 L 80 L 09/19/18 14:00 09/19/18 14:15 09/19/18 14:30 Temperature Pulse Rate 66 68 66 Respiratory Rate 18 18 16 Blood Pressure 89/55 L 136/64 99/50 L Pulse Oximetry 86 L 90 L 96 09/19/18 14:45 09/19/18 15:00 09/19/18 15:15 Temperature Pulse Rate 66 66 65 Respiratory Rate 16 18 18 Blood Pressure 98/57 L 96/54 L 108/55 L Pulse Oximetry 98 99 97 09/19/18 15:30 09/19/18 15:45 09/19/18 16:00 Temperature 97.8 F Pulse Rate 64 63 64 Respiratory Rate 18 14 18 Blood Pressure 110/55 L 112/59 L 112/58 L Pulse Oximetry 100 98 99 09/19/18 16:03 09/19/18 16:15 09/19/18 16:30 Temperature Pulse Rate 64 63 63 Respiratory Rate 18 11 L 4 L Blood Pressure 116/57 L 118/56 L Pulse Oximetry 99 97 96 09/19/18 16:45 09/19/18 18:00 Temperature Pulse Rate 64 65 Respiratory Rate 0 L Blood Pressure 118/58 L Pulse Oximetry 96 Intake & Output 09/19/18 09/19/18 09/20/18 06:59 18:59 06:59 Intake Total 1600 / 1600 740 / 740 Output Total 700 / 700 1925 / 1925 Balance 900 / 900 -1185 / -1185 Weight 107.2 kg Intake: IV 300 / 300 500 / 500 Bumex Inj 25 mg In 100 ml @ 1 200 / 200 MG/HR 4 mls/hr IV.CONT .Q24H ZEKE Rx#:[id number] Precedex Inj 200 MCG In NS Inj 50 / 50 48 ML @ 0.2 MCG/KG/HR 5.36 mls/ hr IV.CONT TITRATE PRN Rx#: [id number] Flexbumin 25% Inj 100 ML @ 60 100 / 100 100 / 100 mls/hr IV.SIG Q12H ZEKE Rx#: [id number] Zosyn 3.375 GM Premix 50 ML @ 100 / 100 50 / 50 100 mls/hr IV.SIG Q6H ZEKE Rx#: [id number] KCl 20 mEq Premix Inj 20 meq In 100 / 100 100 / 100 100 ml @ 50 mls/hr IV.SIG Q2H ZEKE Rx#:[id number] Oral 1300 / 1300 240 / 240 Output: Hemodialysis Amount 1500 / 1500 Urine Amount (Catheter) 700 / 700 425 / 425 Indwelling Urethral Catheter 700 / 700 425 / 425 Other: Date of Last Bowel Movement 09/17/18 09/19/18 # Bowel Movements 2 Narrative: GENERAL: Well-nourished,Obese elderly W/M on the vent , in mild distress SKIN: Warm and dry. HEAD: Normocephalic. EYES: No scleral icterus. No injection or drainage. NECK: Supple, trachea midline. No JVD or lymphadenopathy. CARDIOVASCULAR: Irregular rate and rhythm tachycardia. RESPIRATORY: Breath sounds diminished at bases. Has bilateral Wheezes and Crackles at bases. GASTROINTESTINAL: Abdomen soft, non-tender, nondistended. EXTREMITIES: 2 + edema of legs. NEUROLOGICAL: Awake, Non-focal. - Urinary Catheter Management Indwelling Urethral Catheter Cath placed during this visit: yes Reason for continuing: Hourly intake/output Insertion date: 09/18/18 Insertion time: 09:00 Results - Labs CBC & Chem 7: 09/19/18 02:46 09/19/18 02:46 Laboratory Results - last 24 hr 09/18/18 09/18/18 09/19/18 20:48 23:52 02:46 WBC 18.8 H RBC 2.85 L Hgb 7.8 L D Hct 23.6 L MCV 82.7 MCH 27.5 MCHC 33.3 RDW 17.5 H Plt Count 211 MPV 7.7 Puncture Site Patient Temperature O2 Saturation ABG pH ABG pCO2 ABG pO2 ABG HCO3 ABG O2 Content ABG Base Excess ABG Methemoglobin Cristian Test Hemoglobin Carboxyhemoglobin O2 Delivery Device Vent Setting Inspired O2 Critical Value Sodium 143 Potassium 3.2 L Chloride 103 Carbon Dioxide 28.5 Anion Gap 12 BUN 80 H Creatinine 3.15 H Estimated GFR 19 L POC Glucose 253 H Random Glucose 177 H Calcium 8.0 L Magnesium Total Bilirubin 0.6 AST 53 H ALT 122 H Alkaline Phosphatase 60 Total Protein 6.1 L D Albumin 2.9 L Hepatitis A IgM Ab Hep Bs Antigen Hep B Core IgM Ab Hep C IgG Ab 09/19/18 09/19/18 09/19/18 02:46 05:28 11:50 WBC RBC Hgb Hct MCV MCH MCHC RDW Plt Count MPV Puncture Site Right radial Patient Temperature 98.6 O2 Saturation 96 ABG pH 7.40 ABG pCO2 43 H ABG pO2 141 H ABG HCO3 26 ABG O2 Content 11.1 L ABG Base Excess 1.6 ABG Methemoglobin 1.5 Cristian Test Present Hemoglobin 8.0 L Carboxyhemoglobin 1.5 O2 Delivery Device Ventilator Vent Setting Prvc/ac 500/18/ Inspired O2 70 Critical Value No Sodium 143 Potassium 3.1 L Chloride 103 Carbon Dioxide 28.0 Anion Gap 12 BUN 81 H Creatinine 3.16 H Estimated GFR 19 L POC Glucose 192 H Random Glucose 194 H Calcium 8.0 L Magnesium Total Bilirubin 0.7 AST 49 H ALT 113 H Alkaline Phosphatase 56 Total Protein 6.2 L Albumin 3.1 L Hepatitis A IgM Ab Hep Bs Antigen Hep B Core IgM Ab Hep C IgG Ab 09/19/18 09/19/18 09/19/18 12:31 13:35 13:35 WBC RBC Hgb Hct MCV MCH MCHC RDW Plt Count MPV Puncture Site Patient Temperature O2 Saturation ABG pH ABG pCO2 ABG pO2 ABG HCO3 ABG O2 Content ABG Base Excess ABG Methemoglobin Cristian Test Hemoglobin Carboxyhemoglobin O2 Delivery Device Vent Setting Inspired O2 Critical Value Sodium Potassium Chloride Carbon Dioxide Anion Gap BUN Creatinine Estimated GFR POC Glucose 282 H Random Glucose Calcium Magnesium 2.3 Total Bilirubin AST ALT Alkaline Phosphatase Total Protein Albumin Hepatitis A IgM Ab Nonreactive Hep Bs Antigen Nonreactive Hep B Core IgM Ab Nonreactive Hep C IgG Ab Nonreactive 09/19/18 17:42 WBC RBC Hgb Hct MCV MCH MCHC RDW Plt Count MPV Puncture Site Patient Temperature O2 Saturation ABG pH ABG pCO2 ABG pO2 ABG HCO3 ABG O2 Content ABG Base Excess ABG Methemoglobin Cristian Test Hemoglobin Carboxyhemoglobin O2 Delivery Device Vent Setting Inspired O2 Critical Value Sodium Potassium Chloride Carbon Dioxide Anion Gap BUN Creatinine Estimated GFR POC Glucose 273 H Random Glucose Calcium Magnesium Total Bilirubin AST ALT Alkaline Phosphatase Total Protein Albumin Hepatitis A IgM Ab Hep Bs Antigen Hep B Core IgM Ab Hep C IgG Ab - Imaging Impressions Chest X-Ray 09/19/18 06:00 CONCLUSION: No significant change. Dense consolidative opacities as well as apparent small effusions and cardiomegaly. The findings are most characteristic of congestive heart failure. Chest X-Ray 09/19/18 11:24 CONCLUSION: 1. Endotracheal tube in place with tip 2 cm above the cheryl. 2. Right IJ central venous catheter in place with the tip at the cavoatrial junction. No evidence of pneumothorax. 3. Persistent bilateral pulmonary opacity. 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 Acute hypoxemic respiratory failure 2. Left upper lobe pneumonia 3. B/l pulm infiltrates 4. Acute kidney injury. 5. Anemia. 6. Coronary artery disease. 7. Diabetes mellitus. 8. Hypertension. 9. Chronic obstructive pulmonary disease. 10. Obesity. Plan Pulm: 1)Continue with vent support and wean FIo2 to 40 % 2) Dialysis in am. 3) Cont Antibiotics 4) Cont Duoneb nebs qid. 5) Chest Xray ,CBC,BMP in am 6) Keep sedated with Diprivan 7) OG tube with feeds and PO Meds
[2018-09-19] MEDS: QUEtiapine 25 MG Tablet PO SCH (21:55)
[2018-09-20] MEDS: Dexmedetomidine Inj 200 MCG in Sodium Chlor 0.9% Inj 48 ML IV.CONT PRN ×3 (00:05→04:31)
[2018-09-20] MEDS: Insulin NovoLOG Aspart Correctional Sugar Inj SQ SCH ×5 (00:08→23:33)
[2018-09-20] MEDS: Piperacil/Tazo 3.375 GM Premix 50 ML IV.SIG SCH ×4 (04:31→21:01)
--- NOTE | 2018-09-20 07:00 | XR ---
EXAM DATE: 09/20/2018 6:55 AM EST AGE/SEX: 78 years / Male INDICATIONS: Respiratory Failure. CLINICAL DATA: This is the patient's initial encounter. Patient reports that signs and symptoms have been present for 4 - 6 days and indicates a pain score of Nonresponsive. MEDICAL/SURGICAL HISTORY: . Chronic obstructive pulmonary disease. Hypertension. Renal failure, acute. diabetes, pneumonia . None. COMPARISON: [facility] [place], CHEST 1V SINGLE AP, 09/19/2018. . FINDINGS: Diffuse right and mid lung predominant left parenchymal consolidation present and both sides are wors e in the interim. No definite pleural effusion. No pneumothorax. Endotracheal tube tip is approximately 2.5 cm above the cheryl. Nasogastric tube courses into the sto mach. There is a right internal jugular central venous catheter with tip in the right atrium again se en. CONCLUSION: Worsening right greater than left airspace opacities. Electronically signed by: Roland George MD 09/20/2018 6:59 AM EST
[2018-09-20 07:09] LABS: Baso % (Auto) 0.1 % (0.0-2.0); Eos % (Auto) 0.1 % (0.0-4.0); Hematocrit 23.3 % (39.0-51.0); Hemoglobin 7.5 gm/dL (13.0-17.0); Lymph # (Auto) 0.2 th/mm3 (1.0-4.8); Lymph % (Auto) 1.9 % (9.0-44.0); Mean Corpuscular HGB Conc 32.2 % (32.0-36.0); Mean Corpuscular Hemoglobin 27.5 pg (27.0-34.0); Mean Corpuscular Volume 85.6 fL (80.0-100.0); Mean Platelet Volume 8.1 fL (7.0-11.0); Mono # (Auto) 0.4 th/mm3 (0.0-0.9); Mono % (Auto) 2.9 % (0.0-8.0); Neut # (Auto) 12.4 th/mm3 (1.8-7.7); Platelet Count 146 th/mm3 (150-450); Red Blood Count 2.73 mil/mm3 (4.50-5.90); Red Cell Distribution Width 18.1 % (11.6-17.2)
--- NOTE | 2018-09-20 07:21 | P.PNCC ---
Subjective Subjective Remarks/Hospital Course: Patient is a 78-year-old male with a past medical history of ? COPD, hypertension, diabetes mellitus, coronary artery disease and gout. He was admitted to inpatient medication psych on 08/17/2018 for suicidal ideation and acute kidney injury. He was found to have a creatinine of 1.64. During his hospital course, the patient was seen by hospitalist service. He had a chest x- ray on 08/19/2018. At that time it showed mild basilar opacity, probably subsegmental atelectasis with trace pleural fluid. Then, he had a CT scan of the chest on 09/07/2018 which showed suspected left hilar mass, mild congestive heart failure with small bilateral pleural effusions, left upper lobe pneumonia and focal atypical appearing infiltrate in the right middle lobe with dependent atelectasis of both lower lobes. He was started on broad-spectrum antibiotics. The patient had a V/Q scan on 09/08/2018 which showed a low probability for pulmonary embolism. Helicat was called for increased O2 requirements and the patient was subsequently transferred to [facility] – [place], [place] and Critical Care Medicine was consulted for critical care management. When seen, the patient was on partial nonrebreather mask with a saturation of 100%. Blood pressure 151/70 with a pulse of 89. The patient states that he quit smoking over 20 years ago. He does not use any inhalers or nebulizers at home. He denies any nausea, vomiting or abdominal pain. 09/11 Patient is lying in bed in NAD. Afebrile. 09/12 Patient is lying in bed in NAD. On 4L oxygen. Afebrile. Renal function worse today with Cr: 2.70 from 1.81 09/13 Patient is lying in bed in NAD. Afebrile, Renal function is worsening with Cr: 3.04 from 2.70 09/14 Patient dropped his sats overnight placed on partial rebreather, CXR this morning showed b/l pulm infiltrates. Given Lasix 40mg IV x1. Afebrile. 09/15: Afebrile. Lying in bed in no acute distress. Currently on high flow at 90% nasal cannula. 09/16 Patient is on high flow oxygen 30L with 90% FIO2. Afebrile: 09/17 Patient is on 35L high flow oxyge with 60% FIO2. Awake and alert, Afebrile. 09/18: Patient currently more critical FiO2 requirement has increased overnight currently on 90% FiO2 with high flow oxygen to maintain sat above 90%. Chest x- ray shows severe bilateral upper lobe infiltrates with appearance of pulmonary edema. With Bumex IV push patient has urine output more than 2.5 L, however not achieving adequate and negative balance. BUN 18 today with creatinine of 3.3. Will discontinue IV Bumex and start Bumex infusion at 1 mg/h along with IV albumin. 09/19: Agitated overnight. BUN and creatinine unchanged from yesterday. Started on bumex gtt yesterday. It doesn't appear that his urine output was charted during the day shift yesterday but he made 1200 cc of urine overnight and was - 700 cc for the shift. He is currently on high flow 40 L at 100%. Patient states "I want to get out of bed to a chair today". 09/20: Patient continued to have tachypnea and increased work of breathing throughout the morning yesterday, O2 sats stayed around 88-90% on high flow, still wasn't diuresing adequately with bumex/ albumin. He was intubated and and a RIJ vasc cath was placed, received first HD session yesterday afternoon. Objective Vital Signs / I&O: Vital Signs 09/19/18 07:52 09/19/18 08:00 09/19/18 09:00 Temperature 97.2 F L Pulse Rate 81 81 85 Respiratory Rate 22 33 H 28 H Blood Pressure 146/77 H Pulse Oximetry 90 L 91 L 86 L 09/19/18 10:00 09/19/18 10:30 09/19/18 11:00 Temperature Pulse Rate 85 115 H Respiratory Rate 27 H 18 9 L Blood Pressure Pulse Oximetry 88 L 90 L 89 L 09/19/18 11:47 09/19/18 12:00 09/19/18 12:53 Temperature Pulse Rate 86 86 114 H Respiratory Rate 18 19 24 Blood Pressure 171/74 H Pulse Oximetry 79 L 09/19/18 13:00 09/19/18 13:15 09/19/18 13:30 Temperature Pulse Rate 114 H 73 68 Respiratory Rate 7 L 7 L 14 Blood Pressure 168/86 H 120/57 L 112/57 L Pulse Oximetry 81 L 09/19/18 13:45 09/19/18 14:00 09/19/18 14:15 Temperature Pulse Rate 67 66 68 Respiratory Rate 11 L 18 18 Blood Pressure 98/54 L 89/55 L 136/64 Pulse Oximetry 80 L 86 L 90 L 09/19/18 14:30 09/19/18 14:45 09/19/18 15:00 Temperature Pulse Rate 66 66 66 Respiratory Rate 16 16 18 Blood Pressure 99/50 L 98/57 L 96/54 L Pulse Oximetry 96 98 99 09/19/18 15:15 09/19/18 15:30 09/19/18 15:45 Temperature Pulse Rate 65 64 63 Respiratory Rate 18 18 14 Blood Pressure 108/55 L 110/55 L 112/59 L Pulse Oximetry 97 100 98 09/19/18 16:00 09/19/18 16:03 09/19/18 16:15 Temperature 97.8 F Pulse Rate 64 64 63 Respiratory Rate 18 18 11 L Blood Pressure 112/58 L 116/57 L Pulse Oximetry 99 99 97 09/19/18 16:30 09/19/18 16:45 09/19/18 18:00 Temperature Pulse Rate 63 64 65 Respiratory Rate 4 L 0 L Blood Pressure 118/56 L 118/58 L Pulse Oximetry 96 96 09/19/18 19:30 09/19/18 19:35 09/19/18 19:45 Temperature Pulse Rate 64 64 64 Respiratory Rate 18 19 18 Blood Pressure 117/61 116/60 Pulse Oximetry 94 L 95 94 L 09/19/18 20:00 09/19/18 20:15 09/19/18 20:30 Temperature 97.7 F Pulse Rate 65 64 64 Respiratory Rate 18 18 18 Blood Pressure 118/58 L 118/64 123/61 Pulse Oximetry 93 L 95 95 09/19/18 20:45 09/19/18 21:00 09/19/18 21:15 Temperature Pulse Rate 64 64 63 Respiratory Rate 18 18 18 Blood Pressure 121/63 127/61 122/60 Pulse Oximetry 97 98 98 09/19/18 21:30 09/19/18 21:45 09/19/18 22:00 Temperature Pulse Rate 64 64 64 Respiratory Rate 18 18 18 Blood Pressure 124/73 130/63 134/61 Pulse Oximetry 98 98 98 09/19/18 22:15 09/19/18 22:30 09/19/18 22:45 Temperature Pulse Rate 65 65 68 Respiratory Rate 18 14 18 Blood Pressure 132/64 139/62 124/59 L Pulse Oximetry 98 94 L 94 L 09/19/18 23:00 09/19/18 23:15 09/19/18 23:30 Temperature Pulse Rate 66 66 64 Respiratory Rate 18 18 18 Blood Pressure 110/56 L 108/57 L 110/58 L Pulse Oximetry 96 95 97 09/19/18 23:45 09/19/18 23:57 09/20/18 00:00 Temperature Pulse Rate 64 64 65 Respiratory Rate 18 18 18 Blood Pressure 112/57 L 114/57 L Pulse Oximetry 96 93 L 09/20/18 00:15 09/20/18 00:30 09/20/18 00:45 Temperature Pulse Rate 67 67 66 Respiratory Rate 18 18 18 Blood Pressure 113/56 L 114/59 L 132/60 Pulse Oximetry 90 L 91 L 90 L 09/20/18 01:00 09/20/18 01:15 09/20/18 01:30 Temperature Pulse Rate 65 66 66 Respiratory Rate 18 18 18 Blood Pressure 121/58 L 122/58 L 121/57 L Pulse Oximetry 93 L 92 L 94 L 09/20/18 01:45 09/20/18 02:00 09/20/18 02:15 Temperature Pulse Rate 66 65 65 Respiratory Rate 18 18 18 Blood Pressure 123/58 L 115/59 L 116/63 Pulse Oximetry 91 L 94 L 94 L 09/20/18 02:30 09/20/18 02:45 09/20/18 03:00 Temperature Pulse Rate 64 65 64 Respiratory Rate 18 18 18 Blood Pressure 115/62 118/60 113/59 L Pulse Oximetry 91 L 91 L 91 L 09/20/18 03:15 09/20/18 03:30 09/20/18 03:45 Temperature Pulse Rate 65 64 65 Respiratory Rate 18 23 18 Blood Pressure 115/62 112/57 L 116/56 L Pulse Oximetry 91 L 93 L 91 L 09/20/18 03:47 09/20/18 04:00 09/20/18 04:15 Temperature Pulse Rate 63 64 64 Respiratory Rate 18 18 18 Blood Pressure 121/58 L 120/62 Pulse Oximetry 92 L 93 L 96 09/20/18 04:30 09/20/18 04:45 09/20/18 05:00 Temperature Pulse Rate 64 64 64 Respiratory Rate 18 18 18 Blood Pressure 118/57 L 125/60 125/56 L Pulse Oximetry 97 96 93 L 09/20/18 05:15 09/20/18 05:30 09/20/18 05:45 Temperature Pulse Rate 65 67 65 Respiratory Rate 19 21 22 Blood Pressure 119/56 L 124/56 L 116/60 Pulse Oximetry 89 L 93 L 92 L 09/20/18 06:00 09/20/18 06:15 Temperature 96.9 F L Pulse Rate 66 65 Respiratory Rate 18 18 Blood Pressure 118/62 132/60 Pulse Oximetry 94 L 95 Intake & Output 09/19/18 09/20/18 09/20/18 18:59 06:59 18:59 Intake Total 740 / 740 500 / 500 Output Total 1925 / 1925 200 / 200 Balance -1185 / -1185 300 / 300 Weight 99.5 kg Intake: IV 500 / 500 400 / 400 Bumex Inj 25 mg In 100 ml @ 1 200 / 200 MG/HR 4 mls/hr IV.CONT .Q24H ZEKE Rx#:[id number] Precedex Inj 200 MCG In NS Inj 50 / 50 200 / 200 48 ML @ 0.2 MCG/KG/HR 5.36 mls/ hr IV.CONT TITRATE PRN Rx#: [id number] Flexbumin 25% Inj 100 ML @ 60 100 / 100 100 / 100 mls/hr IV.SIG Q12H ZKEE Rx#: [id number] Zosyn 3.375 GM Premix 50 ML @ 50 / 50 100 / 100 100 mls/hr IV.SIG Q6H ZEKE Rx#: [id number] KCl 20 mEq Premix Inj 20 meq In 100 / 100 100 ml @ 50 mls/hr IV.SIG Q2H ZEKE Rx#:[id number] Oral 240 / 240 Tube Irrigant 100 / 100 Output: Hemodialysis Amount 1500 / 1500 Urine Amount (Catheter) 425 / 425 200 / 200 Indwelling Urethral Catheter 425 / 425 200 / 200 Other: Date of Last Bowel Movement 09/19/18 09/19/18 # Bowel Movements 2 Result Diagrams: 09/20/18 05:02 09/20/18 05:02 Objective Remarks: GENERAL: Intubated and sedated SKIN: Warm and dry. HEAD: Normocephalic. EYES: No injection or drainage. NECK: Supple, trachea midline. RIJ vasc cath present with some blood on biopatch CARDIOVASCULAR: Regular rate and rhythm without murmurs, gallops, or rubs. RESPIRATORY: Coarse rhonchi bilaterally GASTROINTESTINAL: Abdomen soft, non-tender, nondistended. MUSCULOSKELETAL: No cyanosis, 2+ pedal edema NEURO: GCS 5T ([id number]), RASS -1 Assessment and Plan - Assessment and Plan Plan: ASSESSMENT 1. Acute hypoxemic respiratory failure 2. Severe pulmonary edema 3. Left upper lobe pneumonia pr CT chest. 4. Acute kidney failure worsening 5. Agitated delirium 6. Coronary artery disease. 7. Diabetes mellitus. 8. Hypertension. 9. Chronic obstructive pulmonary disease. 10. Elevated BMI. 11. Leukocytosis 12. Transaminitis 13. Anemia. Plan Neuro: Monitor neuro status. qhs seroquel restarted yesterday On precedex/ fentanyl gtt for pain/ sedation with PRN ativan for breakthrough agitation, sedation vacation as tolerated Pulm: Intubated 09/19 for continued pulmonary edema/ resp distress Repeat CXR this morning shows continued right pulm edema, improved on left as compared to yesterday morning prior to intubation Bronchodilators with albuterol/ipratropium aerosols every 4 hours with albuterol aerosols every 2 hours as needed dyspnea, On Solu-Medrol 40 mg IVQ12, Symbicort 160/4.5 two puffs b.i.d. Pulm is following-Dr. Garcia Can start spontaneous breathing trials today as tolerated CV: Cardizem 60 mg QID Monitor HR and BP keep MAP>65mmHg Echo on 08/30/2018 EF of 50% to 55%. PA pressure 32 mmHg. : Monitor renal function, I's and O's, and avoid nephrotoxins. Renal US: No masses, no hydronephrosis Cr: 2.78 today, UOP: 1400 yesterday, 1500 off during HD, overall net -880 2nd HD session today D/C bumex Nephrology recommendations appreciated (Dr. Krueger) ARF likely due to ATN 2nd Vanco tox. GI: on pantoprazole 40 mg IV daily for GI prophylaxis. Start TFs Monitor LFT's, US liver showed only ascites ID: Antibiotic day 4 (Zosyn for PNA), plan on treating x 1 week total Monitor for signs of infection(fever and WBC). Follow-up C-diff PCR 09/12: normal resp zeb strep pneumonia and legionella urinary antigen negative Heme: Monitor CBC-- Hg stable Endo: SSI with aspart insulin to medium scale with Accu-Chek for glycemic control Hold allopurinol until kidney function recovers GI prophylaxis with pantoprazole 40 mg daily DVT prophylaxis with SCD and heparin subcu OVERALL: This patient remains critically ill and requires continued HD and mechanical ventilation. Counseling/ Coordination of Care: This patient is critically ill with impairment of one or more vital organ systems with a high probability of imminent or life-threatening deterioration. High-complexity medical decision making was required to support vital organ function and/ or prevent deterioration in the patient's condition. Total critical care time spent is 40 minutes giving full attention to this patient. This includes examining the patient, gathering history from someone other than the patient (i.e. chart review), discussing the patient's care with other providers, ordering and interpreting laboratory values, managing the patient's agitation/ sedation requirements, re-evaluation at frequent intervals , and documentation. Amount of time is separate from teaching, counseling the patient and/or family, and exclusive of procedures. To help prompt me to consider important information that might be impacting today's encounter and assessment, information from prior notes written by myself or my colleagues may have been "brought forward" into today's note. My signature on this note, however, is an attestation that I personally performed the exam, history, and/or decision-making noted today, and, unless otherwise indicated, the interactions with patient, family, and staff as well as the review of records all occurred today. I also attest that the listed assessment and stated plan reflect my best clinical judgment today based on the combination of historical information, prior notes, and today's exam/ interactions. Code Status: Full
[2018-09-20 07:43] LABS: Alanine Aminotransferase 92 U/L (12-78); Albumin 3.3 g/dL (3.4-5.0); Alkaline Phosphatase 45 U/L (45-117); Anion Gap 11 meq/L (5-15); Aspartate Aminotransferase 40 U/L (15-37); Blood Urea Nitrogen 68 mg/dL (7-18); Calcium 7.8 mg/dL (8.5-10.1); Carbon Dioxide 28.1 meq/L (21.0-32.0); Chloride 105 meq/L (98-107); Glomerular Filtration Rate 22 mL/min (>89); Glucose,Random 175 mg/dL (74-106); Magnesium 2.4 mg/dL (1.5-2.5); Potassium 3.9 meq/L (3.5-5.1); Sodium 144 meq/L (136-145); Total Protein 5.9 g/dL (6.4-8.2)
[2018-09-20] MEDS: Pantoprazole Inj 40 MG Vial IV.PUSH SCH (08:15)
[2018-09-20] MEDS: dilTIAZem 60 MG Tablet PO SCH ×4 (08:15→20:43)
[2018-09-20] MEDS: Heparin - SQ 10,000 UNITS/ML Vial SQ SCH ×2 (08:16→20:44)
[2018-09-20] MEDS: Budesonide-Formoterol 160/4.5 MCG 6 GM Inhaler INH SCH ×2 (08:16→20:44)
[2018-09-20] MEDS: fentaNYL 10 mcg/mL Premix Drip 2,500 MCG/250 ML BAG IV.SIG PRN ×2 (08:18→18:06)
[2018-09-20] MEDS: MethylPREDNISolone Sod Succinate Inj 40 MG/ML Vial IV.PUSH SCH ×2 (10:17→21:01)
--- NOTE | 2018-09-20 10:32 | P.PNNP ---
Subjective Interval history: Patient seen remains intubated on dialysis, FiO2 65% Hemodialysis yesterday 1.5 L off Physical Exam Vital signs: Vital Signs 09/19/18 11:00 09/19/18 11:47 09/19/18 12:00 Temperature Pulse Rate 115 H 86 86 Respiratory Rate 9 L 18 19 Blood Pressure Pulse Oximetry 89 L 09/19/18 12:53 09/19/18 13:00 09/19/18 13:15 Temperature Pulse Rate 114 H 114 H 73 Respiratory Rate 24 7 L 7 L Blood Pressure 171/74 H 168/86 H 120/57 L Pulse Oximetry 79 L 09/19/18 13:30 09/19/18 13:45 09/19/18 14:00 Temperature Pulse Rate 68 67 66 Respiratory Rate 14 11 L 18 Blood Pressure 112/57 L 98/54 L 89/55 L Pulse Oximetry 81 L 80 L 86 L 09/19/18 14:15 09/19/18 14:30 09/19/18 14:45 Temperature Pulse Rate 68 66 66 Respiratory Rate 18 16 16 Blood Pressure 136/64 99/50 L 98/57 L Pulse Oximetry 90 L 96 98 09/19/18 15:00 09/19/18 15:15 09/19/18 15:30 Temperature Pulse Rate 66 65 64 Respiratory Rate 18 18 18 Blood Pressure 96/54 L 108/55 L 110/55 L Pulse Oximetry 99 97 100 09/19/18 15:45 09/19/18 16:00 09/19/18 16:03 Temperature 97.8 F Pulse Rate 63 64 64 Respiratory Rate 14 18 18 Blood Pressure 112/59 L 112/58 L Pulse Oximetry 98 99 99 09/19/18 16:15 09/19/18 16:30 09/19/18 16:45 Temperature Pulse Rate 63 63 64 Respiratory Rate 11 L 4 L 0 L Blood Pressure 116/57 L 118/56 L 118/58 L Pulse Oximetry 97 96 96 09/19/18 18:00 09/19/18 19:30 09/19/18 19:35 Temperature Pulse Rate 65 64 64 Respiratory Rate 18 19 Blood Pressure 117/61 Pulse Oximetry 94 L 95 09/19/18 19:45 09/19/18 20:00 09/19/18 20:15 Temperature 97.7 F Pulse Rate 64 65 64 Respiratory Rate 18 18 18 Blood Pressure 116/60 118/58 L 118/64 Pulse Oximetry 94 L 93 L 95 09/19/18 20:30 09/19/18 20:45 09/19/18 21:00 Temperature Pulse Rate 64 64 64 Respiratory Rate 18 18 18 Blood Pressure 123/61 121/63 127/61 Pulse Oximetry 95 97 98 09/19/18 21:15 09/19/18 21:30 09/19/18 21:45 Temperature Pulse Rate 63 64 64 Respiratory Rate 18 18 18 Blood Pressure 122/60 124/73 130/63 Pulse Oximetry 98 98 98 09/19/18 22:00 09/19/18 22:15 09/19/18 22:30 Temperature Pulse Rate 64 65 65 Respiratory Rate 18 18 14 Blood Pressure 134/61 132/64 139/62 Pulse Oximetry 98 98 94 L 09/19/18 22:45 09/19/18 23:00 09/19/18 23:15 Temperature Pulse Rate 68 66 66 Respiratory Rate 18 18 18 Blood Pressure 124/59 L 110/56 L 108/57 L Pulse Oximetry 94 L 96 95 09/19/18 23:30 09/19/18 23:45 09/19/18 23:57 Temperature Pulse Rate 64 64 64 Respiratory Rate 18 18 18 Blood Pressure 110/58 L 112/57 L Pulse Oximetry 97 96 09/20/18 00:00 09/20/18 00:15 09/20/18 00:30 Temperature Pulse Rate 65 67 67 Respiratory Rate 18 18 18 Blood Pressure 114/57 L 113/56 L 114/59 L Pulse Oximetry 93 L 90 L 91 L 09/20/18 00:45 09/20/18 01:00 09/20/18 01:15 Temperature Pulse Rate 66 65 66 Respiratory Rate 18 18 18 Blood Pressure 132/60 121/58 L 122/58 L Pulse Oximetry 90 L 93 L 92 L 09/20/18 01:30 09/20/18 01:45 09/20/18 02:00 Temperature Pulse Rate 66 66 65 Respiratory Rate 18 18 18 Blood Pressure 121/57 L 123/58 L 115/59 L Pulse Oximetry 94 L 91 L 94 L 09/20/18 02:15 09/20/18 02:30 09/20/18 02:45 Temperature Pulse Rate 65 64 65 Respiratory Rate 18 18 18 Blood Pressure 116/63 115/62 118/60 Pulse Oximetry 94 L 91 L 91 L 09/20/18 03:00 09/20/18 03:15 09/20/18 03:30 Temperature Pulse Rate 64 65 64 Respiratory Rate 18 18 23 Blood Pressure 113/59 L 115/62 112/57 L Pulse Oximetry 91 L 91 L 93 L 09/20/18 03:45 09/20/18 03:47 09/20/18 04:00 Temperature Pulse Rate 65 63 64 Respiratory Rate 18 18 18 Blood Pressure 116/56 L 121/58 L Pulse Oximetry 91 L 92 L 93 L 09/20/18 04:15 09/20/18 04:30 09/20/18 04:45 Temperature Pulse Rate 64 64 64 Respiratory Rate 18 18 18 Blood Pressure 120/62 118/57 L 125/60 Pulse Oximetry 96 97 96 09/20/18 05:00 09/20/18 05:15 09/20/18 05:30 Temperature Pulse Rate 64 65 67 Respiratory Rate 18 19 21 Blood Pressure 125/56 L 119/56 L 124/56 L Pulse Oximetry 93 L 89 L 93 L 09/20/18 05:45 09/20/18 06:00 09/20/18 06:15 Temperature 96.9 F L Pulse Rate 65 66 65 Respiratory Rate 22 18 18 Blood Pressure 116/60 118/62 132/60 Pulse Oximetry 92 L 94 L 95 09/20/18 07:00 09/20/18 07:30 09/20/18 08:48 Temperature Pulse Rate 65 Respiratory Rate 18 18 18 Blood Pressure Pulse Oximetry 98 Intake & Output 09/19/18 09/20/18 09/20/18 18:59 06:59 18:59 Intake Total 740 / 740 500 / 500 250 / 250 Output Total 1925 / 1925 200 / 200 Balance -1185 / -1185 300 / 300 250 / 250 Weight 99.5 kg Intake: IV 500 / 500 400 / 400 250 / 250 Bumex Inj 25 mg In 100 ml @ 1 200 / 200 MG/HR 4 mls/hr IV.CONT .Q24H [facility] Rx#:[id number] Precedex Inj 200 MCG In NS Inj 50 / 50 200 / 200 48 ML @ 0.2 MCG/KG/HR 5.36 mls/ hr IV.CONT TITRATE PRN Rx#: [id number] Flexbumin 25% Inj 100 ML @ 60 100 / 100 100 / 100 mls/hr IV.SIG Q12H [facility] Rx#: [id number] Zosyn 3.375 GM Premix 50 ML @ 50 / 50 100 / 100 100 mls/hr IV.SIG Q6H [facility] Rx#: [id number] KCl 20 mEq Premix Inj 20 meq In 100 / 100 100 ml @ 50 mls/hr IV.SIG Q2H [facility] Rx#:[id number] fentaNYL 10 mcg/mL Premix Drip 250 / 250 2,500 mcg In 250 ml @ 50 MCG/HR 5 mls/hr IV.SIG TITRATE PRN Rx #:[id number] Oral 240 / 240 Tube Irrigant 100 / 100 Output: Hemodialysis Amount 1500 / 1500 Urine Amount (Catheter) 425 / 425 200 / 200 Indwelling Urethral Catheter 425 / 425 200 / 200 Other: Date of Last Bowel Movement 09/19/18 09/19/18 # Bowel Movements 2 Narrative: GENERAL: Well-nourished, well-developed intubated patient. SKIN: Warm and dry. HEAD: Normocephalic. EYES: No scleral icterus. No injection or drainage. NECK: Supple, trachea midline. No JVD or lymphadenopathy. CARDIOVASCULAR: S1-S2 irregular. RESPIRATORY: Breath sounds equal bilaterally. No accessory muscle use. GASTROINTESTINAL: Abdomen soft, non-tender, nondistended. EXTREMITIES: 1+ NEUROLOGICAL: Sedated. - Urinary Catheter Management Indwelling Urethral Catheter Cath placed during this visit: yes Reason for continuing: Hourly intake/output Insertion date: 09/18/18 Insertion time: 09:00 Assessment and Plan - Assessment (1) Acute renal failure Code(s): N17.9 - Acute kidney failure, unspecified Status: Acute (2) COPD (chronic obstructive pulmonary disease) Code(s): J44.9 - Chronic obstructive pulmonary disease, unspecified Status: Acute (3) Pneumonia Code(s): J18.9 - Pneumonia, unspecified organism Status: Acute (4) Mood disorder due to known physiological condition with depressive features Code(s): F06.31 - Mood disorder due to known physiological condition with depressive features Status: Acute (5) Gout Code(s): M10.9 - Gout, unspecified Status: Acute (6) Hypertension Code(s): I10 - Essential (primary) hypertension Status: Acute - Plan Patient has acute tubular necrosis likely due to vancomycin levels are high Creatinine 2.7 -> 3 -> 3.2 -> 3.3-3.3-3.29-3.30-3.15-3.16-2.78 BUN 81 For his dialysis yesterday and he is scheduled to undergo dialysis this afternoon continue supportive care FiO2 65% Monitor BMP, discontinue potassium Monitor intake and output He is aware that patient may need Vas-Cath and dialysis Ongoing peripheral edema Continue to monitor
--- NOTE | 2018-09-20 11:09 | P.DIET ---
Nutritional Evaluation Type of nutrition evaluation: initial Nutrition consult regarding: Tube Feeding Screening comments: TF review Subjective Subjective Comments: SCCM and ASPEN guidelines for energy needs Objective - Diagnosis respiratory distress - Objective Body Mass Index: 31.5 % IBW: 132 Energy Needs - Lower Range (kCal/kg): 22 Energy Needs - Upper Range (kCal/kg): 25 Lower Limit kCal/kg (kCals): 1,660 Upper Limit kCal/kg (kCals): 1,837 Lower Limit Protein Factor (Grams per Kg): 1.1 Upper Limit Protein Factor (Grams per Kg): 1.3 Lower Protein Needs (Protein): 83 Upper Protein Needs (Protein): 98 Dietitian Reviewed in Medical Record: Current diet, Curent medications, Intake & Output, Labs, Medical history Diet Order: NPO, TF Objective Comments: PMH: DM, gout, heart disease, hypokalemia MedS: fentanyl, epogen, vit B12 Labs: BUN 68, Cr 2.78, GFR 22 POC glucose 192, 273, 187 Random glucose 177, 194, 175 Assessment Assessment: Pt is intubated w/ dialysis, sedated w/ fentanyl. Pt scheduled for dialysis this afternoon. Pt currently receiving Nepro 1.8 @ 45mL/hr continuous via OGT per MD. RD agree with Nepro 1.8 @ 45mL/hr to provide 1944 kcal, 88g of protein, and 785mL of free water to best meet pts nutritional needs. Monitor TF tolerance and renal labs. Labs reviewed, dietitian following. Recommendations: 1. RD agree with Nepro 1.8 @ 45mL/hr to best meet pts nutritional needs 2. Monitor TF tolerance and renal labs 3. Dietitian following Dietitian to Monitor: Lab values, Renal labs, Intake & Output, Tube feeding tolerance, Medical course
[2018-09-20] MEDS: Albumin Human 25% Inj 100 ML IV.SIG PRN ×2 (13:46→13:48)
[2018-09-20] MEDS: Dexmedetomidine Inj 1,000 MCG in Sodium Chlor 0.9% Inj 240 ML IV.CONT PRN ×2 (17:05→23:34)
--- NOTE | 2018-09-20 17:54 | P.PN ---
Subjective Interval history: Sedated on the vent and on FIO2 50 %. Was dialyzed. Now seems better with improving Fluid status. Physical Exam Vital signs: Vital Signs 09/19/18 18:00 09/19/18 19:30 09/19/18 19:35 Temperature Pulse Rate 65 64 64 Respiratory Rate 18 19 Blood Pressure 117/61 Pulse Oximetry 94 L 95 09/19/18 19:45 09/19/18 20:00 09/19/18 20:15 Temperature 97.7 F Pulse Rate 64 65 64 Respiratory Rate 18 18 18 Blood Pressure 116/60 118/58 L 118/64 Pulse Oximetry 94 L 93 L 95 09/19/18 20:30 09/19/18 20:45 09/19/18 21:00 Temperature Pulse Rate 64 64 64 Respiratory Rate 18 18 18 Blood Pressure 123/61 121/63 127/61 Pulse Oximetry 95 97 98 09/19/18 21:15 09/19/18 21:30 09/19/18 21:45 Temperature Pulse Rate 63 64 64 Respiratory Rate 18 18 18 Blood Pressure 122/60 124/73 130/63 Pulse Oximetry 98 98 98 09/19/18 22:00 09/19/18 22:15 09/19/18 22:30 Temperature Pulse Rate 64 65 65 Respiratory Rate 18 18 14 Blood Pressure 134/61 132/64 139/62 Pulse Oximetry 98 98 94 L 09/19/18 22:45 09/19/18 23:00 09/19/18 23:15 Temperature Pulse Rate 68 66 66 Respiratory Rate 18 18 18 Blood Pressure 124/59 L 110/56 L 108/57 L Pulse Oximetry 94 L 96 95 09/19/18 23:30 09/19/18 23:45 09/19/18 23:57 Temperature Pulse Rate 64 64 64 Respiratory Rate 18 18 18 Blood Pressure 110/58 L 112/57 L Pulse Oximetry 97 96 09/20/18 00:00 09/20/18 00:15 09/20/18 00:30 Temperature Pulse Rate 65 67 67 Respiratory Rate 18 18 18 Blood Pressure 114/57 L 113/56 L 114/59 L Pulse Oximetry 93 L 90 L 91 L 09/20/18 00:45 09/20/18 01:00 09/20/18 01:15 Temperature Pulse Rate 66 65 66 Respiratory Rate 18 18 18 Blood Pressure 132/60 121/58 L 122/58 L Pulse Oximetry 90 L 93 L 92 L 09/20/18 01:30 09/20/18 01:45 09/20/18 02:00 Temperature Pulse Rate 66 66 65 Respiratory Rate 18 18 18 Blood Pressure 121/57 L 123/58 L 115/59 L Pulse Oximetry 94 L 91 L 94 L 09/20/18 02:15 09/20/18 02:30 09/20/18 02:45 Temperature Pulse Rate 65 64 65 Respiratory Rate 18 18 18 Blood Pressure 116/63 115/62 118/60 Pulse Oximetry 94 L 91 L 91 L 09/20/18 03:00 09/20/18 03:15 09/20/18 03:30 Temperature Pulse Rate 64 65 64 Respiratory Rate 18 18 23 Blood Pressure 113/59 L 115/62 112/57 L Pulse Oximetry 91 L 91 L 93 L 09/20/18 03:45 09/20/18 03:47 09/20/18 04:00 Temperature Pulse Rate 65 63 64 Respiratory Rate 18 18 18 Blood Pressure 116/56 L 121/58 L Pulse Oximetry 91 L 92 L 93 L 09/20/18 04:15 09/20/18 04:30 09/20/18 04:45 Temperature Pulse Rate 64 64 64 Respiratory Rate 18 18 18 Blood Pressure 120/62 118/57 L 125/60 Pulse Oximetry 96 97 96 09/20/18 05:00 09/20/18 05:15 09/20/18 05:30 Temperature Pulse Rate 64 65 67 Respiratory Rate 18 19 21 Blood Pressure 125/56 L 119/56 L 124/56 L Pulse Oximetry 93 L 89 L 93 L 09/20/18 05:45 09/20/18 06:00 09/20/18 06:15 Temperature 96.9 F L Pulse Rate 65 66 65 Respiratory Rate 22 18 18 Blood Pressure 116/60 118/62 132/60 Pulse Oximetry 92 L 94 L 95 09/20/18 06:30 09/20/18 06:45 09/20/18 07:00 Temperature Pulse Rate 66 64 65 Respiratory Rate 18 23 21 Blood Pressure 125/65 122/58 L 125/64 Pulse Oximetry 95 96 92 L 09/20/18 07:15 09/20/18 07:30 09/20/18 07:45 Temperature Pulse Rate 65 64 65 Respiratory Rate 18 18 18 Blood Pressure 125/59 L 128/66 132/60 Pulse Oximetry 94 L 95 95 09/20/18 08:00 09/20/18 08:15 09/20/18 08:30 Temperature 97.7 F Pulse Rate 65 65 64 Respiratory Rate 18 18 18 Blood Pressure 135/67 134/65 130/62 Pulse Oximetry 96 95 95 09/20/18 08:45 09/20/18 08:48 09/20/18 09:00 Temperature Pulse Rate 65 64 Respiratory Rate 18 18 18 Blood Pressure 135/62 138/60 Pulse Oximetry 90 L 87 L 09/20/18 09:15 09/20/18 09:30 09/20/18 09:45 Temperature Pulse Rate 65 69 69 Respiratory Rate 18 21 18 Blood Pressure 125/60 117/62 113/56 L Pulse Oximetry 97 95 70 L 09/20/18 10:00 09/20/18 10:15 09/20/18 10:30 Temperature Pulse Rate 66 63 64 Respiratory Rate 18 18 18 Blood Pressure 115/61 116/62 118/59 L Pulse Oximetry 88 L 92 L 94 L 09/20/18 10:45 09/20/18 11:00 09/20/18 11:15 Temperature Pulse Rate 65 63 65 Respiratory Rate 18 18 18 Blood Pressure 119/62 121/64 125/65 Pulse Oximetry 96 97 97 09/20/18 11:30 09/20/18 11:45 09/20/18 11:51 Temperature Pulse Rate 67 65 Respiratory Rate 18 18 18 Blood Pressure 123/61 130/63 Pulse Oximetry 92 L 96 95 09/20/18 11:53 09/20/18 12:00 09/20/18 12:15 Temperature 98.1 F Pulse Rate 65 64 65 Respiratory Rate 18 18 18 Blood Pressure 125/59 L 129/67 Pulse Oximetry 96 97 09/20/18 12:30 09/20/18 12:45 09/20/18 13:00 Temperature Pulse Rate 65 65 65 Respiratory Rate 18 18 18 Blood Pressure 128/60 129/64 125/64 Pulse Oximetry 95 97 92 L 09/20/18 13:15 09/20/18 13:30 09/20/18 13:45 Temperature Pulse Rate 70 64 64 Respiratory Rate 18 15 1 L Blood Pressure 121/58 L 132/64 118/60 Pulse Oximetry 85 L 94 L 95 09/20/18 14:00 09/20/18 14:15 09/20/18 14:30 Temperature Pulse Rate 64 62 63 Respiratory Rate 9 L 5 L 8 L Blood Pressure 130/60 129/64 119/61 Pulse Oximetry 91 L 96 95 09/20/18 14:45 09/20/18 15:00 09/20/18 15:15 Temperature Pulse Rate 69 61 61 Respiratory Rate 12 8 L 5 L Blood Pressure 124/71 132/62 126/60 Pulse Oximetry 91 L 97 97 09/20/18 15:30 09/20/18 15:45 09/20/18 16:00 Temperature 97.7 F Pulse Rate 63 63 75 Respiratory Rate 3 L 6 L 20 Blood Pressure 124/59 L 127/60 117/59 L Pulse Oximetry 96 97 92 L 09/20/18 16:15 09/20/18 16:30 09/20/18 16:45 Temperature Pulse Rate 75 88 85 Respiratory Rate 19 21 20 Blood Pressure 132/57 L 126/63 144/68 H Pulse Oximetry 81 L 83 L 90 L 09/20/18 17:00 09/20/18 17:15 09/20/18 17:28 Temperature Pulse Rate 72 72 72 Respiratory Rate 18 18 Blood Pressure 120/59 L 133/63 Pulse Oximetry 90 L 93 L Intake & Output 09/19/18 09/20/18 09/20/18 18:59 06:59 18:59 Intake Total 740 / 740 500 / 500 600 / 600 Output Total 1925 / 1925 200 / 200 Balance -1185 / -1185 300 / 300 600 / 600 Weight 99.5 kg Intake: IV 500 / 500 400 / 400 600 / 600 Bumex Inj 25 mg In 100 ml @ 1 200 / 200 MG/HR 4 mls/hr IV.CONT .Q24H [facility] Rx#:[id number] Precedex Inj 200 MCG In NS Inj 50 / 50 200 / 200 50 / 50 48 ML @ 0.2 MCG/KG/HR 5.36 mls/ hr IV.CONT TITRATE PRN Rx#: [id number] Flexbumin 25% Inj 100 ML @ 60 100 / 100 100 / 100 200 / 200 mls/hr IV.SIG WITH DIALYSIS PRN Rx#:[id number] Zosyn 3.375 GM Premix 50 ML @ 50 / 50 100 / 100 100 / 100 100 mls/hr IV.SIG Q6H [facility] Rx#: [id number] KCl 20 mEq Premix Inj 20 meq In 100 / 100 100 ml @ 50 mls/hr IV.SIG Q2H [facility] Rx#:[id number] fentaNYL 10 mcg/mL Premix Drip 250 / 250 2,500 mcg In 250 ml @ 50 MCG/HR 5 mls/hr IV.SIG TITRATE PRN Rx #:[id number] Oral 240 / 240 Tube Irrigant 100 / 100 Output: Hemodialysis Amount 1500 / 1500 Urine Amount (Catheter) 425 / 425 200 / 200 Indwelling Urethral Catheter 425 / 425 200 / 200 Other: Date of Last Bowel Movement 09/19/18 09/19/18 09/19/18 # Bowel Movements 2 Narrative: GENERAL: Well-nourished, well-developed intubated patient. SKIN: Warm and dry. HEAD: Normocephalic. EYES: No scleral icterus. No injection or drainage. NECK: Supple, trachea midline. No JVD or lymphadenopathy. CARDIOVASCULAR: S1-S2 irregular. RESPIRATORY: Breath sounds equal bilaterally. Few Crackles at bases. No accessory muscle use. GASTROINTESTINAL: Abdomen soft, non-tender, nondistended. EXTREMITIES: 1+ edema NEUROLOGICAL: Sedated. - Urinary Catheter Management Indwelling Urethral Catheter Cath placed during this visit: yes Reason for continuing: Hourly intake/output Insertion date: 09/18/18 Insertion time: 09:00 Results - Labs CBC & Chem 7: 09/20/18 05:02 09/20/18 05:02 Laboratory Results - last 24 hr 09/20/18 09/20/18 09/20/18 00:02 05:02 05:02 WBC 13.0 H RBC 2.73 L Hgb 7.5 L Hct 23.3 L MCV 85.6 MCH 27.5 MCHC 32.2 RDW 18.1 H Plt Count 146 L D MPV 8.1 Neut % (Auto) 95.0 H Lymph % (Auto) 1.9 L [place] % (Auto) 2.9 Eos % (Auto) 0.1 Baso % (Auto) 0.1 Neut # (Auto) 12.4 H Lymph # (Auto) 0.2 L [place] # (Auto) 0.4 Eos # (Auto) 0.0 Baso # (Auto) 0.0 WBC Differential . Differential Comment Auto diff final Sodium 144 Potassium 3.9 D Chloride 105 Carbon Dioxide 28.1 Anion Gap 11 BUN 68 H Creatinine 2.78 H Estimated GFR 22 L POC Glucose 253 H Random Glucose 175 H Calcium 7.8 L Magnesium 2.4 Total Bilirubin 0.7 AST 40 H ALT 92 H Alkaline Phosphatase 45 Total Protein 5.9 L Albumin 3.3 L 09/20/18 09/20/18 09/20/18 05:38 12:17 16:58 WBC RBC Hgb Hct MCV MCH MCHC RDW Plt Count MPV Neut % (Auto) Lymph % (Auto) [place] % (Auto) Eos % (Auto) Baso % (Auto) Neut # (Auto) Lymph # (Auto) [place] # (Auto) Eos # (Auto) Baso # (Auto) WBC Differential Differential Comment Sodium Potassium Chloride Carbon Dioxide Anion Gap BUN Creatinine Estimated GFR POC Glucose 187 H 186 H 181 H Random Glucose Calcium Magnesium Total Bilirubin AST ALT Alkaline Phosphatase Total Protein Albumin - Imaging Impressions Chest X-Ray 09/20/18 00:00 CONCLUSION: Worsening right greater than left airspace opacities. 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 Acute hypoxemic respiratory failure 2. Left upper lobe pneumonia 3. B/l pulm infiltrates 4. Acute kidney injury. 5. Anemia. 6. Coronary artery disease. 7. Diabetes mellitus. 8. Hypertension. 9. Chronic obstructive pulmonary disease. 10. Obesity. Plan Pulm: 1) Continue with vent support and wean FIo2 to 40 % 2) Dialysis in am. 3) Cont Antibiotics 4) Cont Duoneb nebs qid. 5) Chest Xray ,CBC,BMP in am 6) wean sedation. 7) OG tube with feeds 8) Solumedrol 40 Mg IV BID
[2018-09-20] MEDS: QUEtiapine 25 MG Tablet PO SCH (20:43)
[2018-09-20] MEDS: Gelatin 12 MM/7 MM Topical Foam TOPICAL PRN (20:44)
[2018-09-21] MEDS: Piperacil/Tazo 3.375 GM Premix 50 ML IV.SIG SCH ×4 (03:37→21:17)
[2018-09-21] MEDS: fentaNYL 10 mcg/mL Premix Drip 2,500 MCG/250 ML BAG IV.SIG PRN ×3 (03:37→23:16)
--- NOTE | 2018-09-21 04:39 | XR ---
EXAM DATE: 09/21/2018 4:29 AM EST AGE/SEX: 78 years / Male INDICATIONS: Shortness of breath, possible pulmonary disease. CLINICAL DATA: This is the patient's subsequent encounter. Patient reports that signs and symptoms h ave been present for 1 week and indicates a pain score of 0/10. MEDICAL/SURGICAL HISTORY: Chronic obstructive pulmonary disease. Hypertension. Renal failure, acute. Diabetes. None. COMPARISON: [facility] – [place], CHEST 1V SINGLE AP, 09/20/2018. . FINDINGS: Single view the chest demonstrates the endotracheal tube, nasogastric tube and right IJ Vas-Cath in g ood position. Patchy infiltrates are again noted bilaterally with some improvement since the previous film. Small bilateral pleural effusions. No visible pneumothorax. CONCLUSION: Patchy infiltrates throughout the lung have improved Electronically signed by: Haroon Brewster MD 09/21/2018 4:38 AM EST
[2018-09-21 05:11] LABS: Baso # (Auto) 0.1 th/mm3 (0.0-0.2); Baso % (Auto) 0.3 % (0.0-2.0); Lymph # (Auto) 0.2 th/mm3 (1.0-4.8); Lymph % (Auto) 1.2 % (9.0-44.0); Mean Corpuscular HGB Conc 33.4 % (32.0-36.0); Mean Corpuscular Hemoglobin 28.1 pg (27.0-34.0); Mean Corpuscular Volume 84.3 fL (80.0-100.0); Mean Platelet Volume 8.7 fL (7.0-11.0); Mono # (Auto) 0.4 th/mm3 (0.0-0.9); Mono % (Auto) 2.6 % (0.0-8.0); Neut % (Auto) 95.9 % (16.0-70.0); Platelet Count 143 th/mm3 (150-450); Red Blood Count 2.46 mil/mm3 (4.50-5.90); Red Cell Distribution Width 18.4 % (11.6-17.2); White Blood Count 15.6 th/mm3 (4.0-11.0)
[2018-09-21 05:19] LABS: Hematocrit 20.7 % (39.0-51.0); Hemoglobin 6.9 gm/dL (13.0-17.0)
[2018-09-21 05:29] LABS: Alkaline Phosphatase 45 U/L (45-117); Total Protein 5.6 g/dL (6.4-8.2)
[2018-09-21 05:35] LABS: Alanine Aminotransferase 88 U/L (12-78); Albumin 3.2 g/dL (3.4-5.0); Anion Gap 9 meq/L (5-15); Aspartate Aminotransferase 45 U/L (15-37); Blood Urea Nitrogen 58 mg/dL (7-18); Chloride 104 meq/L (98-107); Glomerular Filtration Rate 23 mL/min (>89); Glucose,Random 196 mg/dL (74-106); Magnesium 2.4 mg/dL (1.5-2.5); Potassium 3.9 meq/L (3.5-5.1); Sodium 144 meq/L (136-145)
[2018-09-21] MEDS: Insulin NovoLOG Aspart Correctional Sugar Inj SQ SCH ×3 (05:56→18:22)
[2018-09-21] MEDS ORDERED: Sodium Chlor 0.9% Inj 250 ML IV.SIG SCH (06:00)
--- NOTE | 2018-09-21 06:44 | P.PNCC ---
Subjective Subjective Remarks/Hospital Course: Patient is a 78-year-old male with a past medical history of ? COPD, hypertension, diabetes mellitus, coronary artery disease and gout. He was admitted to inpatient medication psych on 08/17/2018 for suicidal ideation and acute kidney injury. He was found to have a creatinine of 1.64. During his hospital course, the patient was seen by hospitalist service. He had a chest x- ray on 08/19/2018. At that time it showed mild basilar opacity, probably subsegmental atelectasis with trace pleural fluid. Then, he had a CT scan of the chest on 09/07/2018 which showed suspected left hilar mass, mild congestive heart failure with small bilateral pleural effusions, left upper lobe pneumonia and focal atypical appearing infiltrate in the right middle lobe with dependent atelectasis of both lower lobes. He was started on broad-spectrum antibiotics. The patient had a V/Q scan on 09/08/2018 which showed a low probability for pulmonary embolism. Helicat was called for increased O2 requirements and [place] [facility] [place] for critical care management. When seen, the patient was on partial nonrebreather mask with a saturation of 100%. Blood pressure 151/70 with a pulse of 89. The patient states that he quit smoking over 20 years ago. He does not use any inhalers or nebulizers at home. He denies any nausea, vomiting or abdominal pain. 09/11 Patient is lying in bed in NAD. Afebrile. 09/12 Patient is lying in bed in NAD. On 4L oxygen. Afebrile. Renal function worse today with Cr: 2.70 from 1.81 09/13 Patient is lying in bed in NAD. Afebrile, Renal function is worsening with Cr: 3.04 from 2.70 09/14 Patient dropped his sats overnight placed on partial rebreather, CXR this morning showed b/l pulm infiltrates. Given Lasix 40mg IV x1. Afebrile. 09/15: Afebrile. Lying in bed in no acute distress. Currently on high flow at 90% nasal cannula. 09/16 Patient is on high flow oxygen 30L with 90% FIO2. Afebrile: 09/17 Patient is on 35L high flow oxyge with 60% FIO2. Awake and alert, Afebrile. 09/18: Patient currently more critical FiO2 requirement has increased overnight currently on 90% FiO2 with high flow oxygen to maintain sat above 90%. Chest x- ray shows severe bilateral upper lobe infiltrates with appearance of pulmonary edema. With Bumex IV push patient has urine output more than 2.5 L, however not achieving adequate and negative balance. BUN 18 today with creatinine of 3.3. Will discontinue IV Bumex and start Bumex infusion at 1 mg/h along with IV albumin. 09/19: Agitated overnight. BUN and creatinine unchanged from yesterday. Started on bumex gtt yesterday. It doesn't appear that his urine output was charted during the day shift yesterday but he made 1200 cc of urine overnight and was - 700 cc for the shift. He is currently on high flow 40 L at 100%. Patient states "I want to get out of bed to a chair today". 09/20: Patient continued to have tachypnea and increased work of breathing throughout the morning yesterday, O2 sats stayed around 88-90% on high flow, still wasn't diuresing adequately with bumex/ albumin. He was intubated and and a RIJ vasc cath was placed, received first HD session yesterday afternoon. 09/21: Resting comfortably, no significant overnight events Objective Vital Signs / I&O: Vital Signs 09/20/18 06:45 09/20/18 07:00 09/20/18 07:15 Temperature Pulse Rate 64 65 65 Respiratory Rate 23 21 18 Blood Pressure 122/58 L 125/64 125/59 L Pulse Oximetry 96 92 L 94 L 09/20/18 07:30 09/20/18 07:45 09/20/18 08:00 Temperature 97.7 F Pulse Rate 64 65 65 Respiratory Rate 18 18 18 Blood Pressure 128/66 132/60 135/67 Pulse Oximetry 95 95 96 09/20/18 08:15 09/20/18 08:30 09/20/18 08:45 Temperature Pulse Rate 65 64 65 Respiratory Rate 18 18 18 Blood Pressure 134/65 130/62 135/62 Pulse Oximetry 95 95 90 L 09/20/18 08:48 09/20/18 09:00 09/20/18 09:15 Temperature Pulse Rate 64 65 Respiratory Rate 18 18 18 Blood Pressure 138/60 125/60 Pulse Oximetry 87 L 97 11/16/18 09:30 09/20/18 09:45 09/20/18 10:00 Temperature Pulse Rate 69 69 66 Respiratory Rate 21 18 18 Blood Pressure 117/62 113/56 L 115/61 Pulse Oximetry 95 70 L 88 L 09/20/18 10:15 09/20/18 10:30 09/20/18 10:45 Temperature Pulse Rate 63 64 65 Respiratory Rate 18 18 18 Blood Pressure 116/62 118/59 L 119/62 Pulse Oximetry 92 L 94 L 96 09/20/18 11:00 09/20/18 11:15 09/20/18 11:30 Temperature Pulse Rate 63 65 67 Respiratory Rate 18 18 18 Blood Pressure 121/64 125/65 123/61 Pulse Oximetry 97 97 92 L 09/20/18 11:45 09/20/18 11:51 09/20/18 11:53 Temperature Pulse Rate 65 65 Respiratory Rate 18 18 18 Blood Pressure 130/63 Pulse Oximetry 96 95 09/20/18 12:00 09/20/18 12:15 09/20/18 12:30 Temperature 98.1 F Pulse Rate 64 65 65 Respiratory Rate 18 18 18 Blood Pressure 125/59 L 129/67 128/60 Pulse Oximetry 96 97 95 09/20/18 12:45 09/20/18 13:00 09/20/18 13:15 Temperature Pulse Rate 65 65 70 Respiratory Rate 18 18 18 Blood Pressure 129/64 125/64 121/58 L Pulse Oximetry 97 92 L 85 L 09/20/18 13:30 09/20/18 13:45 09/20/18 14:00 Temperature Pulse Rate 64 64 64 Respiratory Rate 15 1 L 9 L Blood Pressure 132/64 118/60 130/60 Pulse Oximetry 94 L 95 91 L 09/20/18 14:15 09/20/18 14:30 09/20/18 14:45 Temperature Pulse Rate 62 63 69 Respiratory Rate 5 L 8 L 12 Blood Pressure 129/64 119/61 124/71 Pulse Oximetry 96 95 91 L 09/20/18 15:00 09/20/18 15:15 09/20/18 15:30 Temperature Pulse Rate 61 61 63 Respiratory Rate 8 L 5 L 3 L Blood Pressure 132/62 126/60 124/59 L Pulse Oximetry 97 97 96 09/20/18 15:45 09/20/18 16:00 09/20/18 16:15 Temperature 97.7 F Pulse Rate 63 75 75 Respiratory Rate 6 L 20 19 Blood Pressure 127/60 117/59 L 132/57 L Pulse Oximetry 97 92 L 81 L 09/20/18 16:30 09/20/18 16:45 09/20/18 17:00 Temperature Pulse Rate 88 85 72 Respiratory Rate 21 20 18 Blood Pressure 126/63 144/68 H 120/59 L Pulse Oximetry 83 L 90 L 90 L 09/20/18 17:15 09/20/18 17:28 09/20/18 18:38 Temperature Pulse Rate 72 72 Respiratory Rate 18 18 Blood Pressure 133/63 Pulse Oximetry 93 L 09/20/18 19:11 09/20/18 20:00 09/20/18 22:00 Temperature 98.4 F Pulse Rate 68 75 63 Respiratory Rate 18 18 Blood Pressure 129/60 Pulse Oximetry 99 99 09/20/18 23:45 09/21/18 00:00 09/21/18 02:00 Temperature 98.6 F Pulse Rate 62 70 60 Respiratory Rate 19 18 Blood Pressure 136/64 Pulse Oximetry 95 09/21/18 03:07 09/21/18 04:00 09/21/18 06:00 Temperature 99.5 F Pulse Rate 69 58 L 59 L Respiratory Rate 18 18 Blood Pressure 119/60 Pulse Oximetry 97 100 Intake & Output 09/20/18 09/20/18 09/21/18 06:59 18:59 06:59 Intake Total 500 / 500 1130 / 1130 890 / 890 Output Total 200 / 200 3325 / 3325 150 / 150 Balance 300 / 300 -2195 / -2195 740 / 740 Weight 99.5 kg 105.9 kg Intake: IV 400 / 400 850 / 850 600 / 600 Precedex Inj 1,000 MCG In NS 250 / 250 Inj 240 ML @ 0.2 MCG/KG/HR 5.36 mls/hr IV.CONT TITRATE PRN Rx# :[id number] Precedex Inj 200 MCG In NS Inj 200 / 200 50 / 50 48 ML @ 0.2 MCG/KG/HR 5.36 mls/ hr IV.CONT TITRATE PRN Rx#: [id number] Flexbumin 25% Inj 100 ML @ 60 100 / 100 200 / 200 mls/hr IV.SIG WITH DIALYSIS PRN Rx#:[id number] Zosyn 3.375 GM Premix 50 ML @ 100 / 100 100 / 100 100 / 100 100 mls/hr IV.SIG Q6H [facility] Rx#: [id number] fentaNYL 10 mcg/mL Premix Drip 500 / 500 250 / 250 2,500 mcg In 250 ml @ 50 MCG/HR 5 mls/hr IV.SIG TITRATE PRN Rx #:[id number] Oral 0 / 0 Tube Feeding 180 / 180 290 / 290 Tube Irrigant 100 / 100 100 / 100 Output: Hemodialysis Amount 3000 / 3000 Urine Amount (Catheter) 200 / 200 325 / 325 150 / 150 Indwelling Urethral Catheter 200 / 200 325 / 325 150 / 150 Other: Date of Last Bowel Movement 09/19/18 09/19/18 09/19/18 # Bowel Movements 0 Result Diagrams: 09/21/18 03:52 09/21/18 03:52 Objective Remarks: GENERAL: Intubated and sedated SKIN: Warm and dry. HEAD: Normocephalic. EYES: No injection or drainage. NECK: Supple, trachea midline. RIJ vasc cath present with some blood on biopatch CARDIOVASCULAR: Regular rate and rhythm without murmurs, gallops, or rubs. RESPIRATORY: Coarse rhonchi bilaterally GASTROINTESTINAL: Abdomen soft, non-tender, nondistended. MUSCULOSKELETAL: No cyanosis, 2+ pedal edema NEURO: GCS 9T ([id number]), RASS 0, easily arousable to voice Assessment and Plan - Assessment and Plan Plan: ASSESSMENT 1. Acute hypoxemic respiratory failure 2. Severe pulmonary edema 3. Left upper lobe pneumonia pr CT chest. 4. Acute kidney failure worsening 5. Agitated delirium 6. Coronary artery disease. 7. Diabetes mellitus. 8. Hypertension. 9. Chronic obstructive pulmonary disease. 10. Elevated BMI. 11. Leukocytosis 12. Transaminitis 13. Anemia. Plan Neuro: Monitor neuro status. qhs seroquel On precedex/ fentanyl gtt for pain/ sedation with PRN ativan for breakthrough agitation, sedation vacation with SBT today Pulm: Intubated 09/19 for continued pulmonary edema/ resp distress Repeat CXR this morning shows improving pulmonary edema Bronchodilators with albuterol/ipratropium aerosols every 4 hours with albuterol aerosols every 2 hours as needed dyspnea On Solu-Medrol 40 mg IVQ12, Symbicort 160/4.5 two puffs b.i.d. Pulm is following-Dr. Garcia Spontaneous breathing trial today, wean vent as tolerated CV: Cardizem 60 mg QID Monitor HR and BP keep MAP>65mmHg Echo on 08/30/2018 EF of 50% to 55%. PA pressure 32 mmHg. : Monitor renal function, I's and O's, and avoid nephrotoxins. Renal US: No masses, no hydronephrosis Cr: 2.66 today, UO remains low, 3L dialyzed off yesterday Nephrology following (Dr. Krueger), continue HD ARF likely due to ATN 2nd Vanco tox. GI: on pantoprazole 40 mg IV daily for GI prophylaxis. Continue TFs Monitor LFT's, US liver showed only ascites ID: Antibiotic day 4 (Zosyn for PNA), plan on treating x 1 week total 09/12: normal resp zeb strep pneumonia and legionella urinary antigen negative Heme: Monitor CBC-- Hg 6.9 this AM, will give a unit of PRBCs Endo: SSI with aspart insulin to medium scale with Accu-Chek for glycemic control Hold allopurinol until kidney function recovers GI prophylaxis with pantoprazole 40 mg daily DVT prophylaxis with SCD and heparin subcu OVERALL: This patient remains critically ill and requires continued HD and mechanical ventilation. Counseling/ Coordination of Care: This patient is critically ill with impairment of one or more vital organ systems with a high probability of imminent or life-threatening deterioration. High-complexity medical decision making was required to support vital organ function and/ or prevent deterioration in the patient's condition. Total critical care time spent is 41 minutes giving full attention to this patient. This includes examining the patient, gathering history from someone other than the patient (i.e. chart review), discussing the patient's care with other providers, ordering and interpreting laboratory values, managing the patient's agitation/ sedation requirements, re-evaluation at frequent intervals , and documentation. Amount of time is separate from teaching, counseling the patient and/or family, and exclusive of procedures. To help prompt me to consider important information that might be impacting today's encounter and assessment, information from prior notes written by myself or my colleagues may have been "brought forward" into today's note. My signature on this note, however, is an attestation that I personally performed the exam, history, and/or decision-making noted today, and, unless otherwise indicated, the interactions with patient, family, and staff as well as the review of records all occurred today. I also attest that the listed assessment and stated plan reflect my best clinical judgment today based on the combination of historical information, prior notes, and today's exam/ interactions. Code Status: Full
[2018-09-21] MEDS: Heparin - SQ 10,000 UNITS/ML Vial SQ SCH ×2 (08:08→21:25)
[2018-09-21] MEDS: Budesonide-Formoterol 160/4.5 MCG 6 GM Inhaler INH SCH ×2 (08:08→21:16)
[2018-09-21] MEDS: Pantoprazole Inj 40 MG Vial IV.PUSH SCH (08:09)
[2018-09-21] MEDS: dilTIAZem 60 MG Tablet PO SCH ×4 (08:09→21:20)
[2018-09-21] MEDS ORDERED: Sodium Chloride 0.9% 2 ML Flush PRN IV.FLUSH (08:30)
[2018-09-21] MEDS: Dexmedetomidine Inj 1,000 MCG in Sodium Chlor 0.9% Inj 240 ML IV.CONT PRN ×2 (09:20→18:26)
[2018-09-21] MEDS: Sodium Chloride 0.9% 2 ML Flush BID IV.FLUSH SCH ×2 (10:27→21:16)
[2018-09-21] MEDS: MethylPREDNISolone Sod Succinate Inj 40 MG/ML Vial IV.PUSH SCH ×2 (10:27→21:15)
--- NOTE | 2018-09-21 11:46 | P.PNNP ---
Subjective Interval history: Patient remain intubated and sedated, clinically same. Physical Exam Vital signs: Vital Signs 09/20/18 11:45 09/20/18 11:51 09/20/18 11:53 Temperature Pulse Rate 65 65 Respiratory Rate 18 18 18 Blood Pressure 130/63 Pulse Oximetry 96 95 09/20/18 12:00 09/20/18 12:15 09/20/18 12:30 Temperature 98.1 F Pulse Rate 64 65 65 Respiratory Rate 18 18 18 Blood Pressure 125/59 L 129/67 128/60 Pulse Oximetry 96 97 95 09/20/18 12:45 09/20/18 13:00 09/20/18 13:15 Temperature Pulse Rate 65 65 70 Respiratory Rate 18 18 18 Blood Pressure 129/64 125/64 121/58 L Pulse Oximetry 97 92 L 85 L 09/20/18 13:30 09/20/18 13:45 09/20/18 14:00 Temperature Pulse Rate 64 64 64 Respiratory Rate 15 1 L 9 L Blood Pressure 132/64 118/60 130/60 Pulse Oximetry 94 L 95 91 L 09/20/18 14:15 09/20/18 14:30 09/20/18 14:45 Temperature Pulse Rate 62 63 69 Respiratory Rate 5 L 8 L 12 Blood Pressure 129/64 119/61 124/71 Pulse Oximetry 96 95 91 L 09/20/18 15:00 09/20/18 15:15 09/20/18 15:30 Temperature Pulse Rate 61 61 63 Respiratory Rate 8 L 5 L 3 L Blood Pressure 132/62 126/60 124/59 L Pulse Oximetry 97 97 96 09/20/18 15:45 09/20/18 16:00 09/20/18 16:15 Temperature 97.7 F Pulse Rate 63 75 75 Respiratory Rate 6 L 20 19 Blood Pressure 127/60 117/59 L 132/57 L Pulse Oximetry 97 92 L 81 L 09/20/18 16:30 09/20/18 16:45 09/20/18 17:00 Temperature Pulse Rate 88 85 72 Respiratory Rate 21 20 18 Blood Pressure 126/63 144/68 H 120/59 L Pulse Oximetry 83 L 90 L 90 L 09/20/18 17:15 09/20/18 17:28 09/20/18 18:38 Temperature Pulse Rate 72 72 Respiratory Rate 18 18 Blood Pressure 133/63 Pulse Oximetry 93 L 09/20/18 19:11 09/20/18 20:00 09/20/18 22:00 Temperature 98.4 F Pulse Rate 68 75 63 Respiratory Rate 18 18 Blood Pressure 129/60 Pulse Oximetry 99 99 09/20/18 23:45 09/21/18 00:00 09/21/18 02:00 Temperature 98.6 F Pulse Rate 62 70 60 Respiratory Rate 19 18 Blood Pressure 136/64 Pulse Oximetry 95 09/21/18 03:07 09/21/18 04:00 09/21/18 06:00 Temperature 99.5 F Pulse Rate 69 58 L 59 L Respiratory Rate 18 18 Blood Pressure 119/60 Pulse Oximetry 97 100 09/21/18 06:56 09/21/18 07:00 09/21/18 07:15 Temperature 99.5 F Pulse Rate 60 55 L 61 Respiratory Rate 18 18 18 Blood Pressure 138/66 134/62 134/62 Pulse Oximetry 100 100 09/21/18 07:30 09/21/18 07:31 09/21/18 07:45 Temperature Pulse Rate 65 57 L Respiratory Rate 22 18 18 Blood Pressure 142/64 H 137/59 L Pulse Oximetry 100 100 100 09/21/18 08:00 09/21/18 08:15 09/21/18 08:30 Temperature 99.8 F H Pulse Rate 55 L 60 56 L Respiratory Rate 18 18 18 Blood Pressure 128/67 132/63 136/61 Pulse Oximetry 100 98 100 09/21/18 08:45 09/21/18 09:00 09/21/18 09:15 Temperature Pulse Rate 59 L 57 L 57 L Respiratory Rate 18 18 18 Blood Pressure 137/64 142/62 H 141/63 H Pulse Oximetry 100 99 100 09/21/18 09:24 Temperature 97.9 F Pulse Rate 56 L Respiratory Rate 20 Blood Pressure 141/63 H Pulse Oximetry 98 Intake & Output 09/20/18 09/21/18 09/21/18 18:59 06:59 18:59 Intake Total 1130 / 1130 890 / 890 650 / 650 Output Total 3325 / 3325 150 / 150 Balance -2195 / -2195 740 / 740 650 / 650 Weight 105.9 kg Intake: IV 850 / 850 600 / 600 250 / 250 Precedex Inj 1,000 MCG In NS 250 / 250 250 / 250 Inj 240 ML @ 0.2 MCG/KG/HR 5.36 mls/hr IV.CONT TITRATE PRN Rx# :[id number] Precedex Inj 200 MCG In NS Inj 50 / 50 48 ML @ 0.2 MCG/KG/HR 5.36 mls/ hr IV.CONT TITRATE PRN Rx#: [id number] Flexbumin 25% Inj 100 ML @ 60 200 / 200 mls/hr IV.SIG WITH DIALYSIS PRN Rx#:[id number] Zosyn 3.375 GM Premix 50 ML @ 100 / 100 100 / 100 100 mls/hr IV.SIG Q6H [facility] Rx#: [id number] fentaNYL 10 mcg/mL Premix Drip 500 / 500 250 / 250 2,500 mcg In 250 ml @ 50 MCG/HR 5 mls/hr IV.SIG TITRATE PRN Rx #:[id number] Oral 0 / 0 Tube Feeding 180 / 180 290 / 290 Tube Irrigant 100 / 100 Intake (Blood Product) Amt 0 / 0 400 / 400 Rbc As-3 Leukoreduced Unit 0 / 0 [id number] Rbc As-3 Leukoreduced Unit 0 / 0 400 / 400 [id number] Output: Hemodialysis Amount 3000 / 3000 Urine Amount (Catheter) 325 / 325 150 / 150 Indwelling Urethral Catheter 325 / 325 150 / 150 Other: Date of Last Bowel Movement 09/19/18 09/19/18 # Bowel Movements 0 Narrative: GENERAL: Well-nourished, well-developed intubated patient. SKIN: Warm and dry. HEAD: Normocephalic. EYES: No scleral icterus. No injection or drainage. NECK: Supple, trachea midline. No JVD or lymphadenopathy. CARDIOVASCULAR: S1-S2 irregular. RESPIRATORY: Breath sounds equal bilaterally. Few Crackles at bases. No accessory muscle use. GASTROINTESTINAL: Abdomen soft, non-tender, nondistended. EXTREMITIES: 1+ edema NEUROLOGICAL: Sedated. - Urinary Catheter Management Indwelling Urethral Catheter Cath placed during this visit: yes Reason for continuing: Hourly intake/output Insertion date: 09/18/18 Insertion time: 09:00 Assessment and Plan - Assessment (1) Acute renal failure Code(s): N17.9 - Acute kidney failure, unspecified Status: Acute (2) COPD (chronic obstructive pulmonary disease) Code(s): J44.9 - Chronic obstructive pulmonary disease, unspecified Status: Acute (3) Pneumonia Code(s): J18.9 - Pneumonia, unspecified organism Status: Acute (4) Mood disorder due to known physiological condition with depressive features Code(s): F06.31 - Mood disorder due to known physiological condition with depressive features Status: Acute (5) Gout Code(s): M10.9 - Gout, unspecified Status: Acute (6) Hypertension Code(s): I10 - Essential (primary) hypertension Status: Acute - Plan Patient has acute tubular necrosis likely due to vancomycin levels are high Creatinine 2.7 -> 3 -> 3.2 -> 3.3-3.3-3.29-3.30-3.15-3.16-2.78 BUN 81 For his dialysis yesterday and tolerated well. FiO2 65% Monitor BMP, discontinue potassium Monitor intake and output He is aware that patient may need Vas-Cath and dialysis Ongoing peripheral edema Continue to monitor. Has oozing from Vascath, will get Coag. profile.
[2018-09-21 13:40] LABS: Activated Partial Thrombo Time 30.2 sec (23.4-31.7); INR 1.2 Ratio; Prothrombin Time 11.9 sec (9.8-11.6)
--- NOTE | 2018-09-21 17:36 | P.PN ---
Subjective Interval history: sedated on vent support Physical Exam Vital signs: Vital Signs 09/20/18 18:38 09/20/18 19:11 09/20/18 20:00 Temperature 98.4 F Pulse Rate 68 75 Respiratory Rate 18 18 18 Blood Pressure 129/60 Pulse Oximetry 99 99 09/20/18 22:00 09/20/18 23:45 09/21/18 00:00 Temperature 98.6 F Pulse Rate 63 62 70 Respiratory Rate 19 18 Blood Pressure 136/64 Pulse Oximetry 95 09/21/18 02:00 09/21/18 03:07 09/21/18 04:00 Temperature 99.5 F Pulse Rate 60 69 58 L Respiratory Rate 18 18 Blood Pressure 119/60 Pulse Oximetry 97 100 09/21/18 06:00 09/21/18 06:56 09/21/18 07:00 Temperature 99.5 F Pulse Rate 59 L 60 55 L Respiratory Rate 18 18 Blood Pressure 138/66 134/62 Pulse Oximetry 100 09/21/18 07:15 09/21/18 07:30 09/21/18 07:31 Temperature Pulse Rate 61 65 Respiratory Rate 18 22 18 Blood Pressure 134/62 142/64 H Pulse Oximetry 100 100 100 09/21/18 07:45 09/21/18 08:00 09/21/18 08:15 Temperature 99.8 F H Pulse Rate 57 L 55 L 60 Respiratory Rate 18 18 18 Blood Pressure 137/59 L 128/67 132/63 Pulse Oximetry 100 100 98 09/21/18 08:30 09/21/18 08:45 09/21/18 09:00 Temperature Pulse Rate 56 L 59 L 57 L Respiratory Rate 18 18 18 Blood Pressure 136/61 137/64 142/62 H Pulse Oximetry 100 100 99 09/21/18 09:15 09/21/18 09:24 09/21/18 09:30 Temperature 97.9 F Pulse Rate 57 L 56 L 57 L Respiratory Rate 18 20 18 Blood Pressure 141/63 H 141/63 H 133/73 Pulse Oximetry 100 98 99 09/21/18 09:45 09/21/18 10:00 09/21/18 10:15 Temperature Pulse Rate 56 L 56 L 56 L Respiratory Rate 18 18 18 Blood Pressure 128/83 150/68 H 142/64 H Pulse Oximetry 99 97 98 09/21/18 10:31 09/21/18 10:45 09/21/18 11:00 Temperature Pulse Rate 56 L 58 L 54 L Respiratory Rate 19 22 18 Blood Pressure 153/66 H 154/65 H 149/70 H Pulse Oximetry 95 95 99 09/21/18 11:15 09/21/18 11:30 09/21/18 11:45 Temperature Pulse Rate 55 L 57 L 64 Respiratory Rate 19 18 22 Blood Pressure 148/69 H 143/67 H 157/76 H Pulse Oximetry 97 99 97 09/21/18 12:00 09/21/18 12:15 09/21/18 12:30 Temperature 98.1 F Pulse Rate 58 L 63 69 Respiratory Rate 18 17 15 Blood Pressure 142/67 H 143/71 H 142/72 H Pulse Oximetry 98 93 L 90 L 09/21/18 12:45 09/21/18 13:00 09/21/18 13:15 Temperature Pulse Rate 61 62 66 Respiratory Rate 16 21 16 Blood Pressure 141/83 H 147/68 H 142/67 H Pulse Oximetry 94 L 90 L 86 L 09/21/18 13:30 09/21/18 13:45 09/21/18 14:00 Temperature Pulse Rate 78 74 61 Respiratory Rate 17 20 18 Blood Pressure 143/70 H 142/71 H 132/59 L Pulse Oximetry 83 L 86 L 86 L 09/21/18 14:15 09/21/18 14:30 09/21/18 14:45 Temperature Pulse Rate 66 69 59 L Respiratory Rate 19 18 18 Blood Pressure 133/65 147/71 H 143/66 H Pulse Oximetry 92 L 93 L 94 L 09/21/18 15:00 09/21/18 15:15 09/21/18 15:30 Temperature Pulse Rate 60 58 L 58 L Respiratory Rate 18 18 18 Blood Pressure 137/68 149/71 H 149/71 H Pulse Oximetry 95 95 96 09/21/18 15:45 09/21/18 16:00 09/21/18 16:12 Temperature 98.7 F Pulse Rate 56 L 56 L 74 Respiratory Rate 18 17 17 Blood Pressure 149/69 H 158/68 H Pulse Oximetry 95 95 95 09/21/18 16:15 09/21/18 16:30 09/21/18 16:45 Temperature Pulse Rate 62 56 L 60 Respiratory Rate 18 18 18 Blood Pressure 159/84 H 156/72 H 158/74 H Pulse Oximetry 100 95 95 Intake & Output 09/20/18 09/21/18 09/21/18 18:59 06:59 18:59 Intake Total 1130 / 1130 890 / 890 1000 / 1000 Output Total 3325 / 3325 150 / 150 Balance -2195 / -2195 740 / 740 1000 / 1000 Weight 105.9 kg Intake: IV 850 / 850 600 / 600 600 / 600 Precedex Inj 1,000 MCG In NS 250 / 250 250 / 250 Inj 240 ML @ 0.2 MCG/KG/HR 5.36 mls/hr IV.CONT TITRATE PRN Rx# :[id number] Precedex Inj 200 MCG In NS Inj 50 / 50 48 ML @ 0.2 MCG/KG/HR 5.36 mls/ hr IV.CONT TITRATE PRN Rx#: [id number] Flexbumin 25% Inj 100 ML @ 60 200 / 200 mls/hr IV.SIG WITH DIALYSIS PRN Rx#:[id number] Zosyn 3.375 GM Premix 50 ML @ 100 / 100 100 / 100 100 / 100 100 mls/hr IV.SIG Q6H ZEKE Rx#: [id number] fentaNYL 10 mcg/mL Premix Drip 500 / 500 250 / 250 250 / 250 2,500 mcg In 250 ml @ 50 MCG/HR 5 mls/hr IV.SIG TITRATE PRN Rx #:[id number] Oral 0 / 0 Tube Feeding 180 / 180 290 / 290 Tube Irrigant 100 / 100 Intake (Blood Product) Amt 0 / 0 400 / 400 Rbc As-3 Leukoreduced Unit 0 / 0 [id number] Rbc As-3 Leukoreduced Unit 0 / 0 400 / 400 [id number] Output: Hemodialysis Amount 3000 / 3000 Urine Amount (Catheter) 325 / 325 150 / 150 Indwelling Urethral Catheter 325 / 325 150 / 150 Other: Date of Last Bowel Movement 09/19/18 09/19/18 # Bowel Movements 0 Narrative: GENERAL: Well-nourished, well-developed intubated patient. SKIN: Warm and dry. HEAD: Normocephalic. EYES: No scleral icterus. No injection or drainage. NECK: Supple, trachea midline. No JVD or lymphadenopathy. CARDIOVASCULAR: S1-S2 irregular. RESPIRATORY: Breath sounds equal bilaterally. Few Crackles at bases. No accessory muscle use. GASTROINTESTINAL: Abdomen soft, non-tender, nondistended. EXTREMITIES: 1+ edema NEUROLOGICAL: Sedated. - Urinary Catheter Management Indwelling Urethral Catheter Cath placed during this visit: yes Reason for continuing: Hourly intake/output Insertion date: 09/18/18 Insertion time: 09:00 Results - Labs CBC & Chem 7: 09/21/18 03:52 09/21/18 03:52 Laboratory Results - last 24 hr 09/20/18 09/21/18 09/21/18 23:25 03:52 03:52 WBC 15.6 H RBC 2.46 L Hgb 6.9 L* Hct 20.7 L* MCV 84.3 MCH 28.1 MCHC 33.4 RDW 18.4 H Plt Count 143 L MPV 8.7 Prelim Diff (Auto) Slide review pending Neut % (Auto) 95.9 H Lymph % (Auto) 1.2 L [place] % (Auto) 2.6 Eos % (Auto) 0.0 Baso % (Auto) 0.3 Neut # (Auto) 15.0 H Lymph # (Auto) 0.2 L [place] # (Auto) 0.4 Eos # (Auto) 0.0 Baso # (Auto) 0.1 WBC Differential . Diff Scan Auto diff confirmed Differential Comment . PT INR APTT Sodium 144 Potassium 3.9 Chloride 104 Carbon Dioxide 31.0 Anion Gap 9 BUN 58 H Creatinine 2.66 H Estimated GFR 23 L POC Glucose 272 H Random Glucose 196 H Calcium 8.0 L Magnesium 2.4 Total Bilirubin 0.6 AST 45 H ALT 88 H Alkaline Phosphatase 45 Total Protein 5.6 L Albumin 3.2 L Blood Type Blood Type Recheck Antibody Screen MTS Gel Crossmatch 09/21/18 09/21/18 09/21/18 05:40 05:45 12:14 WBC RBC Hgb Hct MCV MCH MCHC RDW Plt Count MPV Prelim Diff (Auto) Neut % (Auto) Lymph % (Auto) [place] % (Auto) Eos % (Auto) Baso % (Auto) Neut # (Auto) Lymph # (Auto) [place] # (Auto) Eos # (Auto) Baso # (Auto) WBC Differential Diff Scan Differential Comment PT INR APTT Sodium Potassium Chloride Carbon Dioxide Anion Gap BUN Creatinine Estimated GFR POC Glucose 214 H 264 H Random Glucose Calcium Magnesium Total Bilirubin AST ALT Alkaline Phosphatase Total Protein Albumin Blood Type B Positive Blood Type Recheck Required Antibody Screen Negative MTS Gel Crossmatch See Detail 09/21/18 13:05 WBC RBC Hgb Hct MCV MCH MCHC RDW Plt Count MPV Prelim Diff (Auto) Neut % (Auto) Lymph % (Auto) [place] % (Auto) Eos % (Auto) Baso % (Auto) Neut # (Auto) Lymph # (Auto) [place] # (Auto) Eos # (Auto) Baso # (Auto) WBC Differential Diff Scan Differential Comment PT 11.9 H INR 1.2 APTT 30.2 Sodium Potassium Chloride Carbon Dioxide Anion Gap BUN Creatinine Estimated GFR POC Glucose Random Glucose Calcium Magnesium Total Bilirubin AST ALT Alkaline Phosphatase Total Protein Albumin Blood Type Blood Type Recheck Antibody Screen MTS Gel Crossmatch Microbiology 09/21/18 12:20 Sputum - Endotracheal Gram Stain - Final - Imaging Impressions Chest X-Ray 09/21/18 00:00 CONCLUSION: Patchy infiltrates throughout the lung have improved Assessment and Plan - Plan impression respiratory failure renal failure pna copd plan vent support antibx wean as tolerated
[2018-09-21] MEDS: QUEtiapine 25 MG Tablet PO SCH (21:16)
[2018-09-22] MEDS: Insulin NovoLOG Aspart Correctional Sugar Inj SQ SCH ×4 (00:44→18:23)
[2018-09-22 04:06] LABS: Baso # (Auto) 0.1 th/mm3 (0.0-0.2); Baso % (Auto) 0.3 % (0.0-2.0); Hematocrit 31.1 % (39.0-51.0); Hemoglobin 10.6 gm/dL (13.0-17.0); Lymph # (Auto) 0.3 th/mm3 (1.0-4.8); Lymph % (Auto) 1.3 % (9.0-44.0); Mean Corpuscular HGB Conc 34.1 % (32.0-36.0); Mean Corpuscular Hemoglobin 29.1 pg (27.0-34.0); Mean Corpuscular Volume 85.2 fL (80.0-100.0); Mean Platelet Volume 8.7 fL (7.0-11.0); Mono # (Auto) 0.4 th/mm3 (0.0-0.9); Mono % (Auto) 1.9 % (0.0-8.0); Neut # (Auto) 19.3 th/mm3 (1.8-7.7); Neut % (Auto) 96.5 % (16.0-70.0); Platelet Count 116 th/mm3 (150-450); Red Blood Count 3.65 mil/mm3 (4.50-5.90); Red Cell Distribution Width 17.7 % (11.6-17.2)
[2018-09-22 04:31] LABS: Alanine Aminotransferase 101 U/L (12-78); Albumin 2.9 g/dL (3.4-5.0); Alkaline Phosphatase 57 U/L (45-117); Anion Gap 10 meq/L (5-15); Aspartate Aminotransferase 58 U/L (15-37); Blood Urea Nitrogen 84 mg/dL (7-18); Calcium 7.9 mg/dL (8.5-10.1); Carbon Dioxide 28.7 meq/L (21.0-32.0); Chloride 105 meq/L (98-107); Glomerular Filtration Rate 19 mL/min (>89); Glucose,Random 257 mg/dL (74-106); Magnesium 2.4 mg/dL (1.5-2.5); Potassium 3.8 meq/L (3.5-5.1); Sodium 144 meq/L (136-145); Total Protein 5.6 g/dL (6.4-8.2)
[2018-09-22] MEDS: Dexmedetomidine Inj 1,000 MCG in Sodium Chlor 0.9% Inj 240 ML IV.CONT PRN ×2 (04:54→16:33)
[2018-09-22] MEDS: Piperacil/Tazo 3.375 GM Premix 50 ML IV.SIG SCH ×4 (04:55→21:14)
[2018-09-22 05:05] LABS: Lymphocytes 5 % (9-44); Metamyelocytes 1 % (0-1); Monocytes 1 % (0-8); Myelocytes 2 % (0-0)
[2018-09-22 05:06] LABS: Ovalocytes 1+; Platelet Morphology Normal (Normal)
--- NOTE | 2018-09-22 06:54 | P.PNCC ---
Subjective Subjective Remarks/Hospital Course: Patient is a 78-year-old male with a past medical history of ? COPD, hypertension, diabetes mellitus, coronary artery disease and gout. He was admitted to inpatient medication psych on 08/17/2018 for suicidal ideation and acute kidney injury. He was found to have a creatinine of 1.64. During his hospital course, the patient was seen by hospitalist service. He had a chest x- ray on 08/19/2018. At that time it showed mild basilar opacity, probably subsegmental atelectasis with trace pleural fluid. Then, he had a CT scan of the chest on 09/07/2018 which showed suspected left hilar mass, mild congestive heart failure with small bilateral pleural effusions, left upper lobe pneumonia and focal atypical appearing infiltrate in the right middle lobe with dependent atelectasis of both lower lobes. He was started on broad-spectrum antibiotics. The patient had a V/Q scan on 09/08/2018 which showed a low probability for pulmonary embolism. Helicat was called for increased O2 requirements and the patient was subsequently transferred to [facility] [place] and Critical Care Medicine was consulted for critical care management. When seen, the patient was on partial nonrebreather mask with a saturation of 100%. Blood pressure 151/70 with a pulse of 89. The patient states that he quit smoking over 20 years ago. He does not use any inhalers or nebulizers at home. He denies any nausea, vomiting or abdominal pain. 09/11 Patient is lying in bed in NAD. Afebrile. 09/12 Patient is lying in bed in NAD. On 4L oxygen. Afebrile. Renal function worse today with Cr: 2.70 from 1.81 09/13 Patient is lying in bed in NAD. Afebrile, Renal function is worsening with Cr: 3.04 from 2.70 09/14 Patient dropped his sats overnight placed on partial rebreather, CXR this morning showed b/l pulm infiltrates. Given Lasix 40mg IV x1. Afebrile. 09/15: Afebrile. Lying in bed in no acute distress. Currently on high flow at 90% nasal cannula. 09/16 Patient is on high flow oxygen 30L with 90% FIO2. Afebrile: 09/17 Patient is on 35L high flow oxyge with 60% FIO2. Awake and alert, Afebrile. 09/18: Patient currently more critical FiO2 requirement has increased overnight currently on 90% FiO2 with high flow oxygen to maintain sat above 90%. Chest x- ray shows severe bilateral upper lobe infiltrates with appearance of pulmonary edema. With Bumex IV push patient has urine output more than 2.5 L, however not achieving adequate and negative balance. BUN 18 today with creatinine of 3.3. Will discontinue IV Bumex and start Bumex infusion at 1 mg/h along with IV albumin. 09/19: Agitated overnight. BUN and creatinine unchanged from yesterday. Started on bumex gtt yesterday. It doesn't appear that his urine output was charted during the day shift yesterday but he made 1200 cc of urine overnight and was - 700 cc for the shift. He is currently on high flow 40 L at 100%. Patient states "I want to get out of bed to a chair today". 09/20: Patient continued to have tachypnea and increased work of breathing throughout the morning yesterday, O2 sats stayed around 88-90% on high flow, still wasn't diuresing adequately with bumex/ albumin. He was intubated and and a RIJ vasc cath was placed, received first HD session yesterday afternoon. 09/21: Resting comfortably, no significant overnight events 09/22: Pulmonary edema continues to improve, tolerated spontaneous breathing trial x 2 hours this morning but had an episode of A fib with RVR and appeared anxious. Oozing continues from RIJ vasc cath, will reinforce with suture/ Gelfoam. Objective Vital Signs / I&O: Vital Signs 09/21/18 06:56 09/21/18 07:00 09/21/18 07:15 Temperature 99.5 F Pulse Rate 60 55 L 61 Respiratory Rate 18 18 18 Blood Pressure 138/66 134/62 134/62 Pulse Oximetry 100 100 09/21/18 07:30 09/21/18 07:31 09/21/18 07:45 Temperature Pulse Rate 65 57 L Respiratory Rate 22 18 18 Blood Pressure 142/64 H 137/59 L Pulse Oximetry 100 100 100 09/21/18 08:00 09/21/18 08:15 09/21/18 08:30 Temperature 99.8 F H Pulse Rate 55 L 60 56 L Respiratory Rate 18 18 18 Blood Pressure 128/67 132/63 136/61 Pulse Oximetry 100 98 100 09/21/18 08:45 09/21/18 09:00 09/21/18 09:15 Temperature Pulse Rate 59 L 57 L 57 L Respiratory Rate 18 18 18 Blood Pressure 137/64 142/62 H 141/63 H Pulse Oximetry 100 99 100 09/21/18 09:24 09/21/18 09:30 09/21/18 09:45 Temperature 97.9 F Pulse Rate 56 L 57 L 56 L Respiratory Rate 20 18 18 Blood Pressure 141/63 H 133/73 128/83 Pulse Oximetry 98 99 99 09/21/18 10:00 09/21/18 10:15 09/21/18 10:31 Temperature Pulse Rate 56 L 56 L 56 L Respiratory Rate 18 18 19 Blood Pressure 150/68 H 142/64 H 153/66 H Pulse Oximetry 97 98 95 09/21/18 10:45 09/21/18 11:00 09/21/18 11:15 Temperature Pulse Rate 58 L 54 L 55 L Respiratory Rate 22 18 19 Blood Pressure 154/65 H 149/70 H 148/69 H Pulse Oximetry 95 99 97 09/21/18 11:30 09/21/18 11:45 09/21/18 12:00 Temperature 98.1 F Pulse Rate 57 L 64 58 L Respiratory Rate 18 22 18 Blood Pressure 143/67 H 157/76 H 142/67 H Pulse Oximetry 99 97 98 09/21/18 12:15 09/21/18 12:30 09/21/18 12:45 Temperature Pulse Rate 63 69 61 Respiratory Rate 17 15 16 Blood Pressure 143/71 H 142/72 H 141/83 H Pulse Oximetry 93 L 90 L 94 L 09/21/18 13:00 09/21/18 13:15 09/21/18 13:30 Temperature Pulse Rate 62 66 78 Respiratory Rate 21 16 17 Blood Pressure 147/68 H 142/67 H 143/70 H Pulse Oximetry 90 L 86 L 83 L 09/21/18 13:45 09/21/18 14:00 09/21/18 14:15 Temperature Pulse Rate 74 61 66 Respiratory Rate 20 18 19 Blood Pressure 142/71 H 132/59 L 133/65 Pulse Oximetry 86 L 86 L 92 L 09/21/18 14:30 09/21/18 14:45 09/21/18 15:00 Temperature Pulse Rate 69 59 L 60 Respiratory Rate 18 18 18 Blood Pressure 147/71 H 143/66 H 137/68 Pulse Oximetry 93 L 94 L 95 09/21/18 15:15 09/21/18 15:30 09/21/18 15:45 Temperature Pulse Rate 58 L 58 L 56 L Respiratory Rate 18 18 18 Blood Pressure 149/71 H 149/71 H 149/69 H Pulse Oximetry 95 96 95 09/21/18 16:00 09/21/18 16:12 09/21/18 16:15 Temperature 98.7 F Pulse Rate 56 L 74 62 Respiratory Rate 17 17 18 Blood Pressure 158/68 H 159/84 H Pulse Oximetry 95 95 100 09/21/18 16:30 09/21/18 16:45 09/21/18 18:00 Temperature Pulse Rate 56 L 60 67 Respiratory Rate 18 18 Blood Pressure 156/72 H 158/74 H Pulse Oximetry 95 95 09/21/18 19:45 09/21/18 19:54 09/21/18 20:00 Temperature 98.9 F Pulse Rate 60 59 L Respiratory Rate 18 18 18 Blood Pressure 141/67 H Pulse Oximetry 97 97 09/21/18 22:00 09/21/18 22:45 09/21/18 23:43 Temperature Pulse Rate 61 57 L Respiratory Rate 18 18 Blood Pressure Pulse Oximetry 97 09/22/18 00:00 09/22/18 00:41 09/22/18 01:25 Temperature 98.7 F Pulse Rate 58 L Respiratory Rate 18 18 18 Blood Pressure 146/74 H Pulse Oximetry 97 97 09/22/18 02:00 09/22/18 03:50 09/22/18 04:00 Temperature 98.8 F Pulse Rate 57 L 55 L 61 Respiratory Rate 18 18 Blood Pressure 163/74 H Pulse Oximetry 97 09/22/18 04:25 Temperature Pulse Rate Respiratory Rate 18 Blood Pressure Pulse Oximetry 96 Intake & Output 09/21/18 09/21/18 09/22/18 06:59 18:59 06:59 Intake Total 890 / 890 1617 / 1617 950 / 950 Output Total 150 / 150 225 / 225 450 / 450 Balance 740 / 740 1392 / 1392 500 / 500 Weight 105.9 kg Intake: IV 600 / 600 850 / 850 550 / 550 Precedex Inj 1,000 MCG In NS 250 / 250 500 / 500 250 / 250 Inj 240 ML @ 0.2 MCG/KG/HR 5.36 mls/hr IV.CONT TITRATE PRN Rx# :[id number] Zosyn 3.375 GM Premix 50 ML @ 100 / 100 100 / 100 50 / 50 100 mls/hr IV.SIG Q6H ZEKE Rx#: [id number] fentaNYL 10 mcg/mL Premix Drip 250 / 250 250 / 250 250 / 250 2,500 mcg In 250 ml @ 50 MCG/HR 5 mls/hr IV.SIG TITRATE PRN Rx #:[id number] Oral 0 / 0 Tube Feeding 290 / 290 367 / 367 340 / 340 Tube Irrigant 60 / 60 Intake (Blood Product) Amt 0 / 0 400 / 400 Rbc As-3 Leukoreduced Unit 0 / 0 [id number] Rbc As-3 Leukoreduced Unit 0 / 0 400 / 400 [id number] Output: Urine Amount (Catheter) 150 / 150 225 / 225 450 / 450 Indwelling Urethral Catheter 150 / 150 225 / 225 450 / 450 Other: Date of Last Bowel Movement 09/19/18 09/19/18 Result Diagrams: 09/22/18 03:33 09/22/18 03:33 Objective Remarks: GENERAL: Intubated and sedated SKIN: Warm and dry. HEAD: Normocephalic. EYES: No injection or drainage. NECK: Supple, trachea midline. RIJ vasc cath present with some blood on biopatch CARDIOVASCULAR: Regular rate and rhythm without murmurs, gallops, or rubs. RESPIRATORY: Improved air entry bilaterally GASTROINTESTINAL: Abdomen soft, non-tender, nondistended. MUSCULOSKELETAL: No cyanosis, 2+ pedal edema NEURO: GCS 8T ([id number]), RASS -1, easily arousable to voice Assessment and Plan - Assessment and Plan Plan: ASSESSMENT 1. Acute hypoxemic respiratory failure 2. Severe pulmonary edema 3. Left upper lobe pneumonia pr CT chest. 4. Acute kidney failure worsening 5. Agitated delirium 6. Coronary artery disease. 7. Diabetes mellitus. 8. Hypertension. 9. Chronic obstructive pulmonary disease. 10. Elevated BMI. 11. Leukocytosis 12. Transaminitis 13. Anemia. Plan Neuro: Monitor neuro status. qhs seroquel On precedex/ fentanyl gtt for pain/ sedation with PRN ativan for breakthrough agitation, sedation vacation with SBT today Pulm: Intubated 09/19 for continued pulmonary edema/ resp distress Pulmonary edema continues to improve with HD Bronchodilators with albuterol/ipratropium aerosols every 4 hours with albuterol aerosols every 2 hours as needed dyspnea On Solu-Medrol 40 mg IVQ12, Symbicort 160/4.5 two puffs b.i.d. Pulm is following-Dr. Garcia Spontaneous breathing trials, wean vent as tolerated CV: Cardizem 60 mg QID Monitor HR and BP keep MAP>65mmHg Episode of A fib with RVR during SBT, now rate controlled in 80s-90s after being placed back on AC Echo on 08/30/2018 EF of 50% to 55%. PA pressure 32 mmHg. : Monitor renal function, I's and O's, and avoid nephrotoxins. Renal US: No masses, no hydronephrosis Cr: 3.5 today, UO remains low (<400 cc in the past 24 hrs), 3L dialyzed off Sunday Nephrology following (Dr. Krueger), continue HD ARF likely due to ATN 2nd Vanco tox. GI: on pantoprazole 40 mg IV daily for GI prophylaxis. Continue TFs Monitor LFT's, US liver showed only ascites ID: Antibiotic day 4 (Zosyn for PNA), plan on treating x 1 week total 09/12: normal resp zeb strep pneumonia and legionella urinary antigen negative Heme: Monitor CBC-- Hg 10.6 today Continued oozing from RIJ vasc cath, will place suture/ Gel foam today to reinforce Endo: SSI with aspart insulin to medium scale with Accu-Chek for glycemic control Hold allopurinol until kidney function recovers GI prophylaxis with pantoprazole 40 mg daily DVT prophylaxis with SCD and heparin subcu OVERALL: This patient remains critically ill and requires continued HD and mechanical ventilation. Level 2 follow up To help prompt me to consider important information that might be impacting today's encounter and assessment, information from prior notes written by myself or my colleagues may have been "brought forward" into today's note. My signature on this note, however, is an attestation that I personally performed the exam, history, and/or decision-making noted today, and, unless otherwise indicated, the interactions with patient, family, and staff as well as the review of records all occurred today. I also attest that the listed assessment and stated plan reflect my best clinical judgment today based on the combination of historical information, prior notes, and today's exam/ interactions. Code Status: Full
[2018-09-22] MEDS: Budesonide-Formoterol 160/4.5 MCG 6 GM Inhaler INH SCH ×2 (08:06→21:40)
[2018-09-22] MEDS: Heparin - SQ 10,000 UNITS/ML Vial SQ SCH ×2 (08:07→20:30)
[2018-09-22] MEDS: Pantoprazole Inj 40 MG Vial IV.PUSH SCH (08:07)
[2018-09-22] MEDS: Sodium Chloride 0.9% 2 ML Flush BID IV.FLUSH SCH ×2 (08:07→20:31)
[2018-09-22] MEDS: fentaNYL 10 mcg/mL Premix Drip 2,500 MCG/250 ML BAG IV.SIG PRN ×2 (08:15→20:32)
[2018-09-22] MEDS: dilTIAZem 60 MG Tablet PO SCH ×4 (10:46→20:30)
[2018-09-22] MEDS: MethylPREDNISolone Sod Succinate Inj 40 MG/ML Vial IV.PUSH SCH ×2 (10:48→21:13)
--- NOTE | 2018-09-22 11:28 | P.PNNP ---
Subjective Interval history: Patient remain on the vent., now on CPAP, and moving his head. Physical Exam Vital signs: Vital Signs 09/21/18 11:30 09/21/18 11:45 09/21/18 12:00 Temperature 98.1 F Pulse Rate 57 L 64 58 L Respiratory Rate 18 22 18 Blood Pressure 143/67 H 157/76 H 142/67 H Pulse Oximetry 99 97 98 09/21/18 12:15 09/21/18 12:30 09/21/18 12:45 Temperature Pulse Rate 63 69 61 Respiratory Rate 17 15 16 Blood Pressure 143/71 H 142/72 H 141/83 H Pulse Oximetry 93 L 90 L 94 L 09/21/18 13:00 09/21/18 13:15 09/21/18 13:30 Temperature Pulse Rate 62 66 78 Respiratory Rate 21 16 17 Blood Pressure 147/68 H 142/67 H 143/70 H Pulse Oximetry 90 L 86 L 83 L 09/21/18 13:45 09/21/18 14:00 09/21/18 14:15 Temperature Pulse Rate 74 61 66 Respiratory Rate 20 18 19 Blood Pressure 142/71 H 132/59 L 133/65 Pulse Oximetry 86 L 86 L 92 L 09/21/18 14:30 09/21/18 14:45 09/21/18 15:00 Temperature Pulse Rate 69 59 L 60 Respiratory Rate 18 18 18 Blood Pressure 147/71 H 143/66 H 137/68 Pulse Oximetry 93 L 94 L 95 09/21/18 15:15 09/21/18 15:30 09/21/18 15:45 Temperature Pulse Rate 58 L 58 L 56 L Respiratory Rate 18 18 18 Blood Pressure 149/71 H 149/71 H 149/69 H Pulse Oximetry 95 96 95 09/21/18 16:00 09/21/18 16:12 09/21/18 16:15 Temperature 98.7 F Pulse Rate 56 L 74 62 Respiratory Rate 17 17 18 Blood Pressure 158/68 H 159/84 H Pulse Oximetry 95 95 100 09/21/18 16:30 09/21/18 16:45 09/21/18 18:00 Temperature Pulse Rate 56 L 60 67 Respiratory Rate 18 18 Blood Pressure 156/72 H 158/74 H Pulse Oximetry 95 95 09/21/18 19:45 09/21/18 19:54 09/21/18 20:00 Temperature 98.9 F Pulse Rate 60 59 L Respiratory Rate 18 18 18 Blood Pressure 141/67 H Pulse Oximetry 97 97 09/21/18 22:00 09/21/18 22:45 09/21/18 23:43 Temperature Pulse Rate 61 57 L Respiratory Rate 18 18 Blood Pressure Pulse Oximetry 97 09/22/18 00:00 09/22/18 00:41 09/22/18 01:25 Temperature 98.7 F Pulse Rate 58 L Respiratory Rate 18 18 18 Blood Pressure 146/74 H Pulse Oximetry 97 97 09/22/18 02:00 09/22/18 03:50 09/22/18 04:00 Temperature 98.8 F Pulse Rate 57 L 55 L 58 L Respiratory Rate 18 18 Blood Pressure 163/74 H Pulse Oximetry 97 09/22/18 04:25 09/22/18 06:00 09/22/18 07:00 Temperature Pulse Rate 61 57 L Respiratory Rate 18 18 Blood Pressure Pulse Oximetry 96 09/22/18 07:52 09/22/18 08:00 09/22/18 10:00 Temperature 98.8 F Pulse Rate 55 L 69 Respiratory Rate 18 18 Blood Pressure 159/70 H Pulse Oximetry 98 96 09/22/18 10:42 09/22/18 11:21 Temperature Pulse Rate Respiratory Rate 12 18 Blood Pressure Pulse Oximetry 92 L Intake & Output 09/21/18 09/22/18 09/22/18 18:59 06:59 18:59 Intake Total 1617 / 1617 950 / 950 550 / 550 Output Total 225 / 225 450 / 450 Balance 1392 / 1392 500 / 500 550 / 550 Weight 105.9 kg Intake: IV 850 / 850 550 / 550 550 / 550 Precedex Inj 1,000 MCG In NS 500 / 500 250 / 250 Inj 240 ML @ 0.2 MCG/KG/HR 5.36 mls/hr IV.CONT TITRATE PRN Rx# :[id number] Zosyn 3.375 GM Premix 50 ML @ 100 / 100 50 / 50 50 / 50 100 mls/hr IV.SIG Q6H ZEKE Rx#: [id number] NS Inj 250 ML @ 15 mls/hr IV. 250 / 250 SIG ONCE [facility] Rx#:[id number] fentaNYL 10 mcg/mL Premix Drip 250 / 250 250 / 250 250 / 250 2,500 mcg In 250 ml @ 50 MCG/HR 5 mls/hr IV.SIG TITRATE PRN Rx #:[id number] Oral 0 / 0 Tube Feeding 367 / 367 340 / 340 Tube Irrigant 60 / 60 Intake (Blood Product) Amt 400 / 400 Rbc As-3 Leukoreduced Unit 0 / 0 [id number] Rbc As-3 Leukoreduced Unit 400 / 400 [id number] Output: Urine Amount (Catheter) 225 / 225 450 / 450 Indwelling Urethral Catheter 225 / 225 450 / 450 Other: Date of Last Bowel Movement 09/19/18 Narrative: GENERAL: Well-nourished, well-developed intubated patient. SKIN: Warm and dry. HEAD: Normocephalic. EYES: No scleral icterus. No injection or drainage. NECK: Supple, trachea midline. No JVD or lymphadenopathy. CARDIOVASCULAR: S1-S2 irregular. RESPIRATORY: Breath sounds equal bilaterally. Few Crackles at bases. No accessory muscle use. GASTROINTESTINAL: Abdomen soft, non-tender, nondistended. EXTREMITIES: 1+ edema NEUROLOGICAL: Sedated. - Urinary Catheter Management Indwelling Urethral Catheter Cath placed during this visit: yes Reason for continuing: Hourly intake/output Insertion date: 09/18/18 Insertion time: 09:00 Assessment and Plan - Assessment (1) Acute renal failure Code(s): N17.9 - Acute kidney failure, unspecified Status: Acute (2) COPD (chronic obstructive pulmonary disease) Code(s): J44.9 - Chronic obstructive pulmonary disease, unspecified Status: Acute (3) Pneumonia Code(s): J18.9 - Pneumonia, unspecified organism Status: Acute (4) Mood disorder due to known physiological condition with depressive features Code(s): F06.31 - Mood disorder due to known physiological condition with depressive features Status: Acute (5) Gout Code(s): M10.9 - Gout, unspecified Status: Acute (6) Hypertension Code(s): I10 - Essential (primary) hypertension Status: Acute - Plan Patient has acute tubular necrosis likely due to vancomycin levels are high Creatinine 2.7 -> 3 -> 3.2 -> 3.3-3.3-3.29-3.30-3.15-3.16-2.78 BUN 81 For his dialysis yesterday and tolerated well. FiO2 65% Monitor BMP, discontinue potassium Monitor intake and output Ongoing peripheral edema Continue to monitor. Has oozing from Vascath but improving, Coag. profile was normal. Creatinine still increasing, possible HD tomorrow. Hgb. is better after transfusion.
--- NOTE | 2018-09-22 14:59 | P.PN ---
Subjective Interval history: sedated on vent support Physical Exam Vital signs: Vital Signs 09/21/18 15:00 09/21/18 15:15 09/21/18 15:30 Temperature Pulse Rate 60 58 L 58 L Respiratory Rate 18 18 18 Blood Pressure 137/68 149/71 H 149/71 H Pulse Oximetry 95 95 96 09/21/18 15:45 09/21/18 16:00 09/21/18 16:12 Temperature 98.7 F Pulse Rate 56 L 56 L 74 Respiratory Rate 18 17 17 Blood Pressure 149/69 H 158/68 H Pulse Oximetry 95 95 95 09/21/18 16:15 09/21/18 16:30 09/21/18 16:45 Temperature Pulse Rate 62 56 L 60 Respiratory Rate 18 18 18 Blood Pressure 159/84 H 156/72 H 158/74 H Pulse Oximetry 100 95 95 09/21/18 18:00 09/21/18 19:45 09/21/18 19:54 Temperature Pulse Rate 67 60 Respiratory Rate 18 18 Blood Pressure Pulse Oximetry 97 09/21/18 20:00 09/21/18 22:00 09/21/18 22:45 Temperature 98.9 F Pulse Rate 59 L 61 Respiratory Rate 18 18 Blood Pressure 141/67 H Pulse Oximetry 97 97 09/21/18 23:43 09/22/18 00:00 09/22/18 00:41 Temperature 98.7 F Pulse Rate 57 L 58 L Respiratory Rate 18 18 18 Blood Pressure 146/74 H Pulse Oximetry 97 09/22/18 01:25 09/22/18 02:00 09/22/18 03:50 Temperature Pulse Rate 57 L 55 L Respiratory Rate 18 18 Blood Pressure Pulse Oximetry 97 09/22/18 04:00 09/22/18 04:25 09/22/18 06:00 Temperature 98.8 F Pulse Rate 58 L 61 Respiratory Rate 18 18 Blood Pressure 163/74 H Pulse Oximetry 97 96 09/22/18 07:00 09/22/18 07:52 09/22/18 08:00 Temperature 98.8 F Pulse Rate 57 L 55 L Respiratory Rate 18 18 18 Blood Pressure 159/70 H Pulse Oximetry 98 96 09/22/18 10:00 09/22/18 10:42 09/22/18 11:21 Temperature Pulse Rate 69 Respiratory Rate 12 18 Blood Pressure Pulse Oximetry 92 L 09/22/18 12:00 09/22/18 14:00 Temperature 98.7 F Pulse Rate 80 85 Respiratory Rate 19 Blood Pressure 149/68 H Pulse Oximetry 91 L Intake & Output 09/21/18 09/22/18 09/22/18 18:59 06:59 18:59 Intake Total 1617 / 1617 950 / 950 600 / 600 Output Total 225 / 225 450 / 450 Balance 1392 / 1392 500 / 500 600 / 600 Weight 105.9 kg Intake: IV 850 / 850 550 / 550 600 / 600 Precedex Inj 1,000 MCG In NS 500 / 500 250 / 250 Inj 240 ML @ 0.2 MCG/KG/HR 5.36 mls/hr IV.CONT TITRATE PRN Rx# :[id number] Zosyn 3.375 GM Premix 50 ML @ 100 / 100 50 / 50 100 / 100 100 mls/hr IV.SIG Q6H ZEKE Rx#: [id number] NS Inj 250 ML @ 15 mls/hr IV. 250 / 250 SIG ONCE [facility] Rx#:[id number] fentaNYL 10 mcg/mL Premix Drip 250 / 250 250 / 250 250 / 250 2,500 mcg In 250 ml @ 50 MCG/HR 5 mls/hr IV.SIG TITRATE PRN Rx #:[id number] Oral 0 / 0 Tube Feeding 367 / 367 340 / 340 Tube Irrigant 60 / 60 Intake (Blood Product) Amt 400 / 400 Rbc As-3 Leukoreduced Unit 0 / 0 [id number] Rbc As-3 Leukoreduced Unit 400 / 400 [id number] Output: Urine Amount (Catheter) 225 / 225 450 / 450 Indwelling Urethral Catheter 225 / 225 450 / 450 Other: Date of Last Bowel Movement 09/19/18 Narrative: GENERAL: Well-nourished, well-developed intubated patient. SKIN: Warm and dry. HEAD: Normocephalic. EYES: No scleral icterus. No injection or drainage. NECK: Supple, trachea midline. No JVD or lymphadenopathy. CARDIOVASCULAR: S1-S2 irregular. RESPIRATORY: Breath sounds equal bilaterally. Few Crackles at bases. No accessory muscle use. GASTROINTESTINAL: Abdomen soft, non-tender, nondistended. EXTREMITIES: 1+ edema NEUROLOGICAL: Sedated. - Urinary Catheter Management Indwelling Urethral Catheter Cath placed during this visit: yes Reason for continuing: Hourly intake/output Insertion date: 09/18/18 Insertion time: 09:00 Results - Labs CBC & Chem 7: 09/22/18 03:33 09/22/18 03:33 Laboratory Results - last 24 hr 09/21/18 09/22/18 09/22/18 18:19 00:43 03:33 WBC 20.0 H RBC 3.65 L Hgb 10.6 L D Hct 31.1 L MCV 85.2 MCH 29.1 MCHC 34.1 RDW 17.7 H Plt Count 116 L MPV 8.7 Prelim Diff (Auto) Slide review pending Neut % (Auto) 96.5 H Lymph % (Auto) 1.3 L [place] % (Auto) 1.9 Eos % (Auto) 0.0 Baso % (Auto) 0.3 Neut # (Auto) 19.3 H Lymph # (Auto) 0.3 L [place] # (Auto) 0.4 Eos # (Auto) 0.0 Baso # (Auto) 0.1 WBC Differential Manual diff final Seg Neuts % (Manual) 90 H Band Neuts % (Manual) 1 Lymphocytes % (Manual) 5 L Monocytes % (Manual) 1 Metamyelocytes % (Man) 1 Myelocytes % (Man) 2 H Abs Neuts (Manual) 18.8 H Differential Comment . Platelet Estimate Low L Platelet Morphology Normal Ovalocytes 1+ H Sodium Potassium Chloride Carbon Dioxide Anion Gap BUN Creatinine Estimated GFR POC Glucose 200 H 263 H Random Glucose Calcium Magnesium Total Bilirubin AST ALT Alkaline Phosphatase Total Protein Albumin 09/22/18 09/22/18 09/22/18 03:33 05:42 13:36 WBC RBC Hgb Hct MCV MCH MCHC RDW Plt Count MPV Prelim Diff (Auto) Neut % (Auto) Lymph % (Auto) [place] % (Auto) Eos % (Auto) Baso % (Auto) Neut # (Auto) Lymph # (Auto) [place] # (Auto) Eos # (Auto) Baso # (Auto) WBC Differential Seg Neuts % (Manual) Band Neuts % (Manual) Lymphocytes % (Manual) Monocytes % (Manual) Metamyelocytes % (Man) Myelocytes % (Man) Abs Neuts (Manual) Differential Comment Platelet Estimate Platelet Morphology Ovalocytes Sodium 144 Potassium 3.8 Chloride 105 Carbon Dioxide 28.7 Anion Gap 10 BUN 84 H Creatinine 3.25 H Estimated GFR 19 L POC Glucose 273 H 240 H Random Glucose 257 H Calcium 7.9 L Magnesium 2.4 Total Bilirubin 0.6 AST 58 H ALT 101 H Alkaline Phosphatase 57 Total Protein 5.6 L Albumin 2.9 L Microbiology 09/21/18 12:20 Sputum - Endotracheal Gram Stain - Final Assessment and Plan - Plan impression respiratory failure renal failure pna copd plan vent support antibx wean as tolerated
[2018-09-22] MEDS: QUEtiapine 25 MG Tablet PO SCH (20:30)
[2018-09-22] MEDS: Chlorhexidine 0.12% Oral Kit 15 ML UDC OROPHARYNG SCH (20:30)
[2018-09-23] MEDS: Insulin NovoLOG Aspart Correctional Sugar Inj SQ SCH ×5 (00:28→23:40)
[2018-09-23] MEDS: Oral Hygiene Kit OROPHARYNG SCH ×5 (00:28→23:38)
--- NOTE | 2018-09-23 01:53 | XR ---
EXAM DATE: 09/23/2018 1:47 AM EST AGE/SEX: 78 years / Male INDICATIONS: Shortness of breath, possible pulmonary disease. CLINICAL DATA: This is the patient's subsequent encounter. Patient reports that signs and symptoms h ave been present for 1 week and indicates a pain score of Nonresponsive. MEDICAL/SURGICAL HISTORY: Chronic obstructive pulmonary disease. Hypertension. Renal failure, acute. None. COMPARISON: [facility] [place], CHEST 1V SINGLE AP, 09/21/2018. . FINDINGS: Single AP view the chest. Endotracheal tube, nasogastric tube, right IJ central venous catheter remai n in place. Bilateral hazy pulmonary opacity and pulmonary vasculature indistinctness unchanged. Left lower lobe consolidation versus atelectasis again seen. Possible small left pleural effusion unchang ed. No evidence of pneumothorax. CONCLUSION: No significant interval change with persistent mild bilateral diffuse pulmonary opacity likely repres enting pulmonary edema with superimposed left lower lobe atelectasis versus consolidation. Electronically signed by: Oli Garcia MD 09/23/2018 1:51 AM EST
[2018-09-23] MEDS: Dexmedetomidine Inj 1,000 MCG in Sodium Chlor 0.9% Inj 240 ML IV.CONT PRN ×3 (02:49→23:00)
[2018-09-23 05:28] LABS: Baso % (Auto) 0.2 % (0.0-2.0); Hematocrit 31.1 % (39.0-51.0); Hemoglobin 10.6 gm/dL (13.0-17.0); Lymph # (Auto) 0.3 th/mm3 (1.0-4.8); Lymph % (Auto) 1.4 % (9.0-44.0); Mean Corpuscular HGB Conc 34.1 % (32.0-36.0); Mean Corpuscular Volume 85.2 fL (80.0-100.0); Mean Platelet Volume 8.9 fL (7.0-11.0); Mono # (Auto) 0.4 th/mm3 (0.0-0.9); Neut % (Auto) 96.4 % (16.0-70.0); Platelet Count 105 th/mm3 (150-450); Red Blood Count 3.65 mil/mm3 (4.50-5.90); Red Cell Distribution Width 17.8 % (11.6-17.2); White Blood Count 19.7 th/mm3 (4.0-11.0)
[2018-09-23] MEDS: Piperacil/Tazo 3.375 GM Premix 50 ML IV.SIG SCH ×2 (05:31→09:47)
[2018-09-23 06:18] LABS: Alanine Aminotransferase 158 U/L (12-78); Albumin 2.7 g/dL (3.4-5.0); Alkaline Phosphatase 69 U/L (45-117); Anion Gap 12 meq/L (5-15); Aspartate Aminotransferase 85 U/L (15-37); Blood Urea Nitrogen 104 mg/dL (7-18); Calcium 8.1 mg/dL (8.5-10.1); Carbon Dioxide 27.7 meq/L (21.0-32.0); Chloride 108 meq/L (98-107); Glomerular Filtration Rate 17 mL/min (>89); Glucose,Random 247 mg/dL (74-106); Magnesium 2.6 mg/dL (1.5-2.5); Potassium 3.5 meq/L (3.5-5.1); Sodium 148 meq/L (136-145); Total Protein 5.3 g/dL (6.4-8.2)
[2018-09-23] MEDS: fentaNYL 10 mcg/mL Premix Drip 2,500 MCG/250 ML BAG IV.SIG PRN ×2 (08:25→19:44)
[2018-09-23] MEDS: Sodium Chloride 0.9% 2 ML Flush BID IV.FLUSH SCH ×2 (08:31→21:23)
[2018-09-23] MEDS: Chlorhexidine 0.12% Oral Kit 15 ML UDC OROPHARYNG SCH ×2 (08:31→21:22)
[2018-09-23] MEDS: Budesonide-Formoterol 160/4.5 MCG 6 GM Inhaler INH SCH ×2 (08:32→20:58)
[2018-09-23] MEDS: Albumin Human 25% Inj 100 ML IV.SIG PRN ×2 (08:52→09:06)
[2018-09-23] MEDS: Heparin 10,000 UNITS/10 ML Vial (for IV use) OTHER PRN (08:53)
[2018-09-23] MEDS: MethylPREDNISolone Sod Succinate Inj 40 MG/ML Vial IV.PUSH SCH (09:46)
[2018-09-23] MEDS: dilTIAZem 60 MG Tablet PO SCH ×4 (09:46→21:23)
[2018-09-23] MEDS: Heparin - SQ 10,000 UNITS/ML Vial SQ SCH ×2 (09:47→21:23)
[2018-09-23] MEDS: Pantoprazole Inj 40 MG Vial IV.PUSH SCH (09:47)
--- NOTE | 2018-09-23 09:48 | P.PNCC ---
Subjective Subjective Remarks/Hospital Course: Patient is a 78-year-old male with a past medical history of ? COPD, hypertension, diabetes mellitus, coronary artery disease and gout. He was admitted to inpatient medication psych on 08/17/2018 for suicidal ideation and acute kidney injury. He was found to have a creatinine of 1.64. During his hospital course, the patient was seen by hospitalist service. He had a chest x- ray on 08/19/2018. At that time it showed mild basilar opacity, probably subsegmental atelectasis with trace pleural fluid. Then, he had a CT scan of the chest on 09/07/2018 which showed suspected left hilar mass, mild congestive heart failure with small bilateral pleural effusions, left upper lobe pneumonia and focal atypical appearing infiltrate in the right middle lobe with dependent atelectasis of both lower lobes. He was started on broad-spectrum antibiotics. The patient had a V/Q scan on 09/08/2018 which showed a low probability for pulmonary embolism. Helicat was called for increased O2 requirements and [place] was [place] [facility] [place] Medicine was consulted for critical care management. When seen, the patient was on partial nonrebreather mask with a saturation of 100%. Blood pressure 151/70 with a pulse of 89. The patient states that he quit smoking over 20 years ago. He does not use any inhalers or nebulizers at home. He denies any nausea, vomiting or abdominal pain. 09/11 Patient is lying in bed in NAD. Afebrile. 09/12 Patient is lying in bed in NAD. On 4L oxygen. Afebrile. Renal function worse today with Cr: 2.70 from 1.81 09/13 Patient is lying in bed in NAD. Afebrile, Renal function is worsening with Cr: 3.04 from 2.70 09/14 Patient dropped his sats overnight placed on partial rebreather, CXR this morning showed b/l pulm infiltrates. Given Lasix 40mg IV x1. Afebrile. 09/15: Afebrile. Lying in bed in no acute distress. Currently on high flow at 90% nasal cannula. 09/16 Patient is on high flow oxygen 30L with 90% FIO2. Afebrile: 09/17 Patient is on 35L high flow oxyge with 60% FIO2. Awake and alert, Afebrile. 09/18: Patient currently more critical FiO2 requirement has increased overnight currently on 90% FiO2 with high flow oxygen to maintain sat above 90%. Chest x- ray shows severe bilateral upper lobe infiltrates with appearance of pulmonary edema. With Bumex IV push patient has urine output more than 2.5 L, however not achieving adequate and negative balance. BUN 18 today with creatinine of 3.3. Will discontinue IV Bumex and start Bumex infusion at 1 mg/h along with IV albumin. 09/19: Agitated overnight. BUN and creatinine unchanged from yesterday. Started on bumex gtt yesterday. It doesn't appear that his urine output was charted during the day shift yesterday but he made 1200 cc of urine overnight and was - 700 cc for the shift. He is currently on high flow 40 L at 100%. Patient states "I want to get out of bed to a chair today". 09/20: Patient continued to have tachypnea and increased work of breathing throughout the morning yesterday, O2 sats stayed around 88-90% on high flow, still wasn't diuresing adequately with bumex/ albumin. He was intubated and and a RIJ vasc cath was placed, received first HD session yesterday afternoon. 09/21: Resting comfortably, no significant overnight events 09/22: Pulmonary edema continues to improve, tolerated spontaneous breathing trial x 2 hours this morning but had an episode of A fib with RVR and appeared anxious. Oozing continues from RIJ vasc cath, will reinforce with suture/ Gelfoam. 09/23: Currently being dialyzed. I placed a suture around the base of the RIJ vasc cath yesterday with Gelfoam reinforcement, less oozing today as per RN. Will attempt SBT after HD. Objective Vital Signs / I&O: Vital Signs 09/22/18 10:00 09/22/18 10:42 09/22/18 11:21 Temperature Pulse Rate 69 Respiratory Rate 12 18 Blood Pressure Pulse Oximetry 92 L 09/22/18 12:00 09/22/18 14:00 09/22/18 15:53 Temperature 98.7 F Pulse Rate 80 85 Respiratory Rate 19 18 Blood Pressure 149/68 H Pulse Oximetry 91 L 97 09/22/18 16:00 09/22/18 18:00 09/22/18 19:10 Temperature 98.8 F Pulse Rate 67 61 Respiratory Rate 18 18 Blood Pressure 137/65 Pulse Oximetry 98 100 09/22/18 20:00 09/22/18 21:02 09/22/18 21:24 Temperature 98.4 F Pulse Rate 67 Respiratory Rate 18 12 19 Blood Pressure 151/67 H Pulse Oximetry 99 99 09/22/18 22:00 09/23/18 00:00 09/23/18 00:06 Temperature 98.2 F Pulse Rate 58 L 62 Respiratory Rate 18 18 Blood Pressure 163/72 H Pulse Oximetry 98 98 09/23/18 02:00 09/23/18 04:00 09/23/18 04:15 Temperature 98.5 F Pulse Rate 58 L 53 L Respiratory Rate 18 18 Blood Pressure 153/69 H Pulse Oximetry 98 99 09/23/18 06:00 09/23/18 07:46 Temperature Pulse Rate 53 L Respiratory Rate 18 Blood Pressure Pulse Oximetry 97 Intake & Output 09/22/18 09/23/18 09/23/18 18:59 06:59 18:59 Intake Total 1603 / 1603 800 / 800 200 / 200 Output Total 425 / 425 550 / 550 Balance 1178 / 1178 250 / 250 200 / 200 Weight 105.9 kg Intake: IV 1150 / 1150 350 / 350 200 / 200 Precedex Inj 1,000 MCG In NS 250 / 250 250 / 250 Inj 240 ML @ 0.2 MCG/KG/HR 5.36 mls/hr IV.CONT TITRATE PRN Rx# :[id number] Flexbumin 25% Inj 100 ML @ 60 200 / 200 mls/hr IV.SIG WITH DIALYSIS PRN Rx#:[id number] Zosyn 3.375 GM Premix 50 ML @ 150 / 150 100 / 100 100 mls/hr IV.SIG Q6H ZEKE Rx#: [id number] NS Inj 250 ML @ 15 mls/hr IV. 250 / 250 SIG ONCE [facility] Rx#:[id number] fentaNYL 10 mcg/mL Premix Drip 500 / 500 2,500 mcg In 250 ml @ 50 MCG/HR 5 mls/hr IV.SIG TITRATE PRN Rx #:[id number] Oral 0 / 0 0 / 0 Tube Feeding 363 / 363 390 / 390 Tube Irrigant 90 / 90 60 / 60 Output: Urine Amount (Catheter) 425 / 425 550 / 550 Indwelling Urethral Catheter 425 / 425 550 / 550 Other: Date of Last Bowel Movement 09/19/18 09/19/18 Result Diagrams: 09/23/18 03:44 09/23/18 03:44 Objective Remarks: GENERAL: Intubated and sedated SKIN: Warm and dry. HEAD: NCAT EYES: PERRL NECK: Supple, trachea midline. RIJ vasc cath present with some blood on biopatch CARDIOVASCULAR: Regular rate and rhythm RESPIRATORY: Improved air entry bilaterally, currently on AC GASTROINTESTINAL: Abdomen soft, non-tender, non-distended. MUSCULOSKELETAL: No cyanosis, 2+ pedal edema NEURO: GCS 9T ([id number]), RASS 0, easily arousable to voice Assessment and Plan - Assessment and Plan Plan: ASSESSMENT 1. Acute hypoxemic respiratory failure 2. Severe pulmonary edema 3. Left upper lobe pneumonia pr CT chest. 4. Acute kidney failure worsening 5. Agitated delirium 6. Coronary artery disease. 7. Diabetes mellitus. 8. Hypertension. 9. Chronic obstructive pulmonary disease. 10. Elevated BMI. 11. Leukocytosis 12. Transaminitis 13. Anemia. Plan Neuro: Monitor neuro status. On precedex/ fentanyl gtt for pain/ sedation, keep drips as low as possible for RASS 0 to -1, patient gets agitated and grabs for lines/ tubes after 15-20 mins as per RN D/C PRN ativan Change seroquel from qhs to BID Pulm: Intubated 09/19 for continued pulmonary edema/ resp distress Pulmonary edema continues to improve with HD Bronchodilators with albuterol/ipratropium aerosols every 4 hours with albuterol aerosols every 2 hours as needed dyspnea On Solu-Medrol 40 mg IVQ12, Symbicort 160/4.5 two puffs b.i.d. Pulm is following-Dr. Garcia Spontaneous breathing trials, wean vent as tolerated, would like to extubate in the next day or two CV: Cardizem 60 mg QID Monitor HR and BP keep MAP>65mmHg Episode of A fib with RVR during SBT yesterday Echo on 08/30/2018 EF of 50% to 55%. PA pressure 32 mmHg. : Monitor renal function, I's and O's, and avoid nephrotoxins. Renal US: No masses, no hydronephrosis Urine output improving (made 900 cc over the last 2 shifts), creat 3.5 Nephrology following (Dr. Krueger), currently being dialyzed with goal of 3L off ARF likely due to ATN 2nd Vanco tox. GI: on pantoprazole 40 mg IV daily for GI prophylaxis. Continue TFs Monitor LFT's, US liver showed only ascites ID: D/C Mark today, has been on for 1 week for CAP 09/12: normal resp zeb strep pneumonia and legionella urinary antigen negative Heme: Monitor CBC-- Hg 10.6 today Continued oozing from RIJ vasc cath, suture/ Gelfoam placed yesterday, continue to monitor, try to limit movement of ports Endo: SSI with aspart insulin to medium scale with Accu-Chek for glycemic control Hold allopurinol until kidney function recovers GI prophylaxis with pantoprazole 40 mg daily DVT prophylaxis with SCD and SQH OVERALL: This patient remains critically ill and requires continued HD and mechanical ventilation. Level 2 follow up To help prompt me to consider important information that might be impacting today's encounter and assessment, information from prior notes written by myself or my colleagues may have been "brought forward" into today's note. My signature on this note, however, is an attestation that I personally performed the exam, history, and/or decision-making noted today, and, unless otherwise indicated, the interactions with patient, family, and staff as well as the review of records all occurred today. I also attest that the listed assessment and stated plan reflect my best clinical judgment today based on the combination of historical information, prior notes, and today's exam/ interactions. Code Status: Full
--- NOTE | 2018-09-23 11:53 | P.PN ---
Subjective Interval history: Sedated and on vent support. FIO2 at 50 %. Was dialyzed and Sats improved to 99. On pressors. Physical Exam Vital signs: Vital Signs 09/22/18 12:00 09/22/18 14:00 09/22/18 15:53 Temperature 98.7 F Pulse Rate 80 85 Respiratory Rate 19 18 Blood Pressure 149/68 H Pulse Oximetry 91 L 97 09/22/18 16:00 09/22/18 18:00 09/22/18 19:10 Temperature 98.8 F Pulse Rate 67 61 Respiratory Rate 18 18 Blood Pressure 137/65 Pulse Oximetry 98 100 09/22/18 20:00 09/22/18 21:02 09/22/18 21:24 Temperature 98.4 F Pulse Rate 67 Respiratory Rate 18 12 19 Blood Pressure 151/67 H Pulse Oximetry 99 99 09/22/18 22:00 09/23/18 00:00 09/23/18 00:06 Temperature 98.2 F Pulse Rate 58 L 62 Respiratory Rate 18 18 Blood Pressure 163/72 H Pulse Oximetry 98 98 09/23/18 02:00 09/23/18 04:00 09/23/18 04:15 Temperature 98.5 F Pulse Rate 58 L 53 L Respiratory Rate 18 18 Blood Pressure 153/69 H Pulse Oximetry 98 99 09/23/18 06:00 09/23/18 07:46 09/23/18 08:00 Temperature 98.3 F Pulse Rate 53 L 65 Respiratory Rate 18 18 Blood Pressure 169/74 H Pulse Oximetry 97 97 09/23/18 09:00 09/23/18 10:00 09/23/18 11:10 Temperature Pulse Rate 73 Respiratory Rate 18 18 Blood Pressure Pulse Oximetry 96 Intake & Output 09/22/18 09/23/18 09/23/18 18:59 06:59 18:59 Intake Total 1603 / 1603 800 / 800 200 / 200 Output Total 425 / 425 550 / 550 3500 / 3500 Balance 1178 / 1178 250 / 250 -3300 / -3300 Weight 105.9 kg Intake: IV 1150 / 1150 350 / 350 200 / 200 Precedex Inj 1,000 MCG In NS 250 / 250 250 / 250 Inj 240 ML @ 0.2 MCG/KG/HR 5.36 mls/hr IV.CONT TITRATE PRN Rx# :[id number] Flexbumin 25% Inj 100 ML @ 60 200 / 200 mls/hr IV.SIG WITH DIALYSIS PRN Rx#:[id number] Zosyn 3.375 GM Premix 50 ML @ 150 / 150 100 / 100 100 mls/hr IV.SIG Q6H [facility] Rx#: [id number] NS Inj 250 ML @ 15 mls/hr IV. 250 / 250 SIG ONCE [facility] Rx#:[id number] fentaNYL 10 mcg/mL Premix Drip 500 / 500 2,500 mcg In 250 ml @ 50 MCG/HR 5 mls/hr IV.SIG TITRATE PRN Rx #:[id number] Oral 0 / 0 0 / 0 Tube Feeding 363 / 363 390 / 390 Tube Irrigant 90 / 90 60 / 60 Output: Hemodialysis Amount 3500 / 3500 Urine Amount (Catheter) 425 / 425 550 / 550 Indwelling Urethral Catheter 425 / 425 550 / 550 Other: Date of Last Bowel Movement 09/19/18 09/19/18 Narrative: GENERAL: Well-nourished, well-developed intubated patient. SKIN: Warm and dry. HEAD: Normocephalic. EYES: No scleral icterus. No injection or drainage. NECK: Supple, trachea midline. No JVD or lymphadenopathy. CARDIOVASCULAR: S1-S2 irregular. RESPIRATORY: Breath sounds equal bilaterally. Few Crackles at bases. Occ Wheeze. GASTROINTESTINAL: Abdomen soft, non-tender, nondistended. EXTREMITIES: 1+ edema of legs NEUROLOGICAL: Sedated. - Urinary Catheter Management Indwelling Urethral Catheter Cath placed during this visit: yes Reason for continuing: Hourly intake/output Insertion date: 09/18/18 Insertion time: 09:00 Results - Labs CBC & Chem 7: 09/23/18 03:44 09/23/18 03:44 Laboratory Results - last 24 hr 09/22/18 09/22/18 09/23/18 13:36 17:51 00:23 WBC RBC Hgb Hct MCV MCH MCHC RDW Plt Count MPV Neut % (Auto) Lymph % (Auto) [place] % (Auto) Eos % (Auto) Baso % (Auto) Neut # (Auto) Lymph # (Auto) [place] # (Auto) Eos # (Auto) Baso # (Auto) WBC Differential Differential Comment Sodium Potassium Chloride Carbon Dioxide Anion Gap BUN Creatinine Estimated GFR POC Glucose 240 H 242 H 251 H Random Glucose Calcium Magnesium Total Bilirubin AST ALT Alkaline Phosphatase Total Protein Albumin 11/19/18 11/19/18 11/19/18 03:44 03:44 05:40 WBC 19.7 H RBC 3.65 L Hgb 10.6 L Hct 31.1 L MCV 85.2 MCH 29.0 MCHC 34.1 RDW 17.8 H Plt Count 105 L MPV 8.9 Neut % (Auto) 96.4 H Lymph % (Auto) 1.4 L [place] % (Auto) 2.0 Eos % (Auto) 0.0 Baso % (Auto) 0.2 Neut # (Auto) 19.0 H Lymph # (Auto) 0.3 L [place] # (Auto) 0.4 Eos # (Auto) 0.0 Baso # (Auto) 0.0 WBC Differential . Differential Comment Auto diff final Sodium 148 H Potassium 3.5 Chloride 108 H Carbon Dioxide 27.7 Anion Gap 12 BUN 104 H Creatinine 3.54 H Estimated GFR 17 L POC Glucose 252 H Random Glucose 247 H Calcium 8.1 L Magnesium 2.6 H Total Bilirubin 0.8 AST 85 H ALT 158 H Alkaline Phosphatase 69 Total Protein 5.3 L Albumin 2.7 L 09/23/18 11:32 WBC RBC Hgb Hct MCV MCH MCHC RDW Plt Count MPV Neut % (Auto) Lymph % (Auto) [place] % (Auto) Eos % (Auto) Baso % (Auto) Neut # (Auto) Lymph # (Auto) [place] # (Auto) Eos # (Auto) Baso # (Auto) WBC Differential Differential Comment Sodium Potassium Chloride Carbon Dioxide Anion Gap BUN Creatinine Estimated GFR POC Glucose 180 H Random Glucose Calcium Magnesium Total Bilirubin AST ALT Alkaline Phosphatase Total Protein Albumin Microbiology 09/21/18 12:20 Sputum - Endotracheal Gram Stain - Final 09/21/18 12:20 Sputum - Endotracheal Sputum Culture - Preliminary Light growth normal respiratory zeb at 24 hours - Imaging Impressions Chest X-Ray 09/23/18 05:00 CONCLUSION: No significant interval change with persistent mild bilateral diffuse pulmonary opacity likely representing pulmonary edema with superimposed left lower lobe atelectasis versus consolidation. 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 Acute hypoxemic respiratory failure 2. Left upper lobe pneumonia 3. B/l pulm infiltrates 4. Acute kidney injury. 5. Anemia. 6. Coronary artery disease. 7. Diabetes mellitus. 8. Hypertension. 9. Chronic obstructive pulmonary disease. 10. Obesity. Plan Pulm: 1) Continue with vent support and wean FIo2 to 40 % 2) Dialysis today 3) Cont Antibiotics 4) Cont Duoneb nebs qid. 5) CBC,BMP in am 6) wean sedation. 7) OG tube with feeds 8) D/C Solumedrol and add Prednisone 20 mg daily
--- NOTE | 2018-09-23 15:55 | P.PCN ---
Date of procedure: 09/23/18 Pre-op diagnosis: Acute hypoxic respiratory failure Post-op diagnosis: same Procedure: Endotracheal tube exchange I was called to the bedside by RN as the company pilot balloon on the patient's ETT had been inadvertently cut and deflated. The patient was not receiving adequate tidal volumes on ventilator and the decision was made to emergently exchange the ETT. The patient was placed on 100% FiO2 and he was given etomidate and succinylcholine (please see MAR for details). A Glidescope was introduced into his oropharynx and the existing ETT was noted to be between the vocal cords. A tube exchanger was placed through the ETT and the first tube was removed. A new 8-0 ETT was then placed over the tube exchanger and the tube was advanced under Glidescope visualization until the cuff was past the vocal cords. The cuff was then inflated, the Glidescope and tube exchanger removed, and the patient was placed back on the ventilator. The tube was secured at 25 cm at the teeth. Placement was confirmed via direct visualization, improvement in O2 sats, and auscultation of bilateral breath sounds. A CXR is ordered and pending. Anesthesia: other (RSI) Surgeon: Sierra Cohn Pathology: none sent Condition: stable Disposition: ICU (Tolerated well, no immediate complications)
--- NOTE | 2018-09-23 17:10 | XR ---
EXAM DATE: 09/23/2018 5:03 PM EST AGE/SEX: 78 years / Male INDICATIONS: Endotracheal tube exchange. CLINICAL DATA: This is the patient's subsequent encounter. Patient reports that signs and symptoms h ave been present for 2 weeks and indicates a pain score of Nonresponsive. MEDICAL/SURGICAL HISTORY: . Chronic obstructive pulmonary disease. Hypertension. Renal failure , acute None. COMPARISON: [facility], CHEST 1V SINGLE AP, 09/23/2018. . FINDINGS: Loss of volume with increased opacity has developed throughout the left lung. The right lung is stable again demonstrating prominent interstitial pattern without significant conso lidation. Heart and mediastinal structures are stable. Endotracheal and nasogastric tubes are in good position. Right jugular sheath remains in good positio n. CONCLUSION: Loss of volume and increasing density throughout the left lung following exchange of endotracheal tub e which may indicate bronchial plugging. No other significant change noted. Electronically signed by: John Barrett MD 09/23/2018 5:09 PM EST
--- NOTE | 2018-09-23 18:29 | P.PNNP ---
Subjective Interval history: Patient is on the vent open eyes, blood pressure is stable, he had an other suture and secure the vascular dressing intact Physical Exam Vital signs: Vital Signs 09/22/18 19:10 09/22/18 20:00 09/22/18 21:02 Temperature 98.4 F Pulse Rate 67 Respiratory Rate 18 18 12 Blood Pressure 151/67 H Pulse Oximetry 100 99 09/22/18 21:24 09/22/18 22:00 09/23/18 00:00 Temperature 98.2 F Pulse Rate 58 L 62 Respiratory Rate 19 18 Blood Pressure 163/72 H Pulse Oximetry 99 98 09/23/18 00:06 09/23/18 02:00 09/23/18 04:00 Temperature 98.5 F Pulse Rate 58 L 53 L Respiratory Rate 18 18 Blood Pressure 153/69 H Pulse Oximetry 98 98 09/23/18 04:15 09/23/18 06:00 09/23/18 07:46 Temperature Pulse Rate 53 L Respiratory Rate 18 18 Blood Pressure Pulse Oximetry 99 97 09/23/18 08:00 09/23/18 09:00 09/23/18 10:00 Temperature 98.3 F Pulse Rate 65 73 Respiratory Rate 18 18 Blood Pressure 169/74 H Pulse Oximetry 97 09/23/18 11:10 09/23/18 16:00 Temperature Pulse Rate Respiratory Rate 18 18 Blood Pressure Pulse Oximetry 96 95 Intake & Output 09/22/18 09/23/18 09/23/18 18:59 06:59 18:59 Intake Total 1603 / 1603 800 / 800 450 / 450 Output Total 425 / 425 550 / 550 3500 / 3500 Balance 1178 / 1178 250 / 250 -3050 / -3050 Weight 105.9 kg Intake: IV 1150 / 1150 350 / 350 450 / 450 Precedex Inj 1,000 MCG In NS 250 / 250 250 / 250 250 / 250 Inj 240 ML @ 0.2 MCG/KG/HR 5.36 mls/hr IV.CONT TITRATE PRN Rx# :[id number] Flexbumin 25% Inj 100 ML @ 60 200 / 200 mls/hr IV.SIG WITH DIALYSIS PRN Rx#:[id number] Zosyn 3.375 GM Premix 50 ML @ 150 / 150 100 / 100 100 mls/hr IV.SIG Q6H [facility] Rx#: [id number] NS Inj 250 ML @ 15 mls/hr IV. 250 / 250 SIG ONCE [facility] Rx#:[id number] fentaNYL 10 mcg/mL Premix Drip 500 / 500 2,500 mcg In 250 ml @ 50 MCG/HR 5 mls/hr IV.SIG TITRATE PRN Rx #:[id number] Oral 0 / 0 0 / 0 Tube Feeding 363 / 363 390 / 390 Tube Irrigant 90 / 90 60 / 60 Output: Hemodialysis Amount 3500 / 3500 Urine Amount (Catheter) 425 / 425 550 / 550 Indwelling Urethral Catheter 425 / 425 550 / 550 Other: Date of Last Bowel Movement 09/19/18 09/19/18 Narrative: GENERAL: Well-nourished, well-developed intubated patient. SKIN: Warm and dry. HEAD: Normocephalic. EYES: No scleral icterus. No injection or drainage. NECK: Supple, trachea midline. No JVD or lymphadenopathy. Dressing on the right side of neck CARDIOVASCULAR: S1-S2 irregular. RESPIRATORY: Breath sounds equal bilaterally. Few Crackles at bases. Occ Wheeze. GASTROINTESTINAL: Abdomen soft, non-tender, nondistended. EXTREMITIES: 1+ edema of legs NEUROLOGICAL: On ventilator. - Urinary Catheter Management Indwelling Urethral Catheter Cath placed during this visit: yes Reason for continuing: Hourly intake/output Insertion date: 09/18/18 Insertion time: 09:00 Assessment and Plan - Assessment (1) Acute renal failure Code(s): N17.9 - Acute kidney failure, unspecified Status: Acute (2) COPD (chronic obstructive pulmonary disease) Code(s): J44.9 - Chronic obstructive pulmonary disease, unspecified Status: Acute (3) Pneumonia Code(s): J18.9 - Pneumonia, unspecified organism Status: Acute (4) Mood disorder due to known physiological condition with depressive features Code(s): F06.31 - Mood disorder due to known physiological condition with depressive features Status: Acute (5) Gout Code(s): M10.9 - Gout, unspecified Status: Acute (6) Hypertension Code(s): I10 - Essential (primary) hypertension Status: Acute - Plan Patient has acute tubular necrosis likely due to vancomycin levels are high Creatinine 2.7 -> 3 -> 3.2 -> 3.3-3.3-3.29-3.30-3.15-3.16-2.78 Creatinine 3.5/BUN 104 For his dialysis yesterday and tolerated well. Monitor BMP, discontinue potassium Monitor intake and output Ongoing peripheral edema Continue to monitor. He did well with hemodialysis 3.5 L taken off, the Vas-Cath was secured with another suture continue to monitor.
[2018-09-23] MEDS: QUEtiapine 25 MG Tablet PO SCH (21:23)
--- NOTE | 2018-09-23 22:40 | ECG ---
Date Performed: 09/22/2018 Time Performed: 11:20:40 PTAGE: 78 years EKG: Sinus rhythm Frequent PACS Indeterminate axis Low QRS voltages in limb leads Abnormal ECG Since the PREVIOUS TRACING , no significant change noted DOCTOR: Alia Lozano Interpretating Date/Time 09/23/2018 22:39:08
[2018-09-23] MEDS: Gelatin 12 MM/7 MM Topical Foam TOPICAL PRN (23:49)
[2018-09-24] MEDS: Oral Hygiene Kit OROPHARYNG SCH ×4 (03:36→23:18)
[2018-09-24] MEDS: Insulin NovoLOG Aspart Correctional Sugar Inj SQ SCH ×4 (05:33→23:20)
[2018-09-24 06:08] LABS: Baso % (Auto) 0.1 % (0.0-2.0); Hematocrit 28.1 % (39.0-51.0); Hemoglobin 9.8 gm/dL (13.0-17.0); Lymph # (Auto) 0.5 th/mm3 (1.0-4.8); Lymph % (Auto) 2.5 % (9.0-44.0); Mean Corpuscular Hemoglobin 29.6 pg (27.0-34.0); Mean Corpuscular Volume 84.5 fL (80.0-100.0); Mean Platelet Volume 9.5 fL (7.0-11.0); Mono # (Auto) 0.8 th/mm3 (0.0-0.9); Mono % (Auto) 4.3 % (0.0-8.0); Neut # (Auto) 18.2 th/mm3 (1.8-7.7); Neut % (Auto) 93.1 % (16.0-70.0); Platelet Count 86 th/mm3 (150-450); Red Blood Count 3.33 mil/mm3 (4.50-5.90); Red Cell Distribution Width 17.9 % (11.6-17.2); White Blood Count 19.5 th/mm3 (4.0-11.0)
[2018-09-24] MEDS: fentaNYL 10 mcg/mL Premix Drip 2,500 MCG/250 ML BAG IV.SIG PRN ×2 (06:14→23:21)
[2018-09-24 06:37] LABS: Alanine Aminotransferase 125 U/L (12-78); Albumin 3.1 g/dL (3.4-5.0); Alkaline Phosphatase 63 U/L (45-117); Anion Gap 13 meq/L (5-15); Aspartate Aminotransferase 44 U/L (15-37); Blood Urea Nitrogen 85 mg/dL (7-18); Calcium 8.3 mg/dL (8.5-10.1); Chloride 105 meq/L (98-107); Glomerular Filtration Rate 24 mL/min (>89); Glucose,Random 217 mg/dL (74-106); Magnesium 2.4 mg/dL (1.5-2.5); Potassium 3.2 meq/L (3.5-5.1); Sodium 147 meq/L (136-145); Total Protein 5.3 g/dL (6.4-8.2)
--- NOTE | 2018-09-24 07:00 | P.PNCC ---
Subjective Subjective Remarks/Hospital Course: Patient is a 78-year-old male with a past medical history of ? COPD, hypertension, diabetes mellitus, coronary artery disease and gout. He was admitted to inpatient medication psych on 08/17/2018 for suicidal ideation and acute kidney injury. He was found to have a creatinine of 1.64. During his hospital course, the patient was seen by hospitalist service. He had a chest x- ray on 08/19/2018. At that time it showed mild basilar opacity, probably subsegmental atelectasis with trace pleural fluid. Then, he had a CT scan of the chest on 09/07/2018 which showed suspected left hilar mass, mild congestive heart failure with small bilateral pleural effusions, left upper lobe pneumonia and focal atypical appearing infiltrate in the right middle lobe with dependent atelectasis of both lower lobes. He was started on broad-spectrum antibiotics. The patient had a V/Q scan on 09/08/2018 which showed a low probability for pulmonary embolism. Helicat was called for increased O2 requirements and the patient was subsequently transferred to [facility] and Critical Care Medicine was consulted for critical care management. When seen, the patient was on partial nonrebreather mask with a saturation of 100%. Blood pressure 151/70 with a pulse of 89. The patient states that he quit smoking over 20 years ago. He does not use any inhalers or nebulizers at home. He denies any nausea, vomiting or abdominal pain. 09/11 Patient is lying in bed in NAD. Afebrile. 09/12 Patient is lying in bed in NAD. On 4L oxygen. Afebrile. Renal function worse today with Cr: 2.70 from 1.81 09/13 Patient is lying in bed in NAD. Afebrile, Renal function is worsening with Cr: 3.04 from 2.70 09/14 Patient dropped his sats overnight placed on partial rebreather, CXR this morning showed b/l pulm infiltrates. Given Lasix 40mg IV x1. Afebrile. 09/15: Afebrile. Lying in bed in no acute distress. Currently on high flow at 90% nasal cannula. 09/16 Patient is on high flow oxygen 30L with 90% FIO2. Afebrile: 09/17 Patient is on 35L high flow oxyge with 60% FIO2. Awake and alert, Afebrile. 09/18: Patient currently more critical FiO2 requirement has increased overnight currently on 90% FiO2 with high flow oxygen to maintain sat above 90%. Chest x- ray shows severe bilateral upper lobe infiltrates with appearance of pulmonary edema. With Bumex IV push patient has urine output more than 2.5 L, however not achieving adequate and negative balance. BUN 18 today with creatinine of 3.3. Will discontinue IV Bumex and start Bumex infusion at 1 mg/h along with IV albumin. 09/19: Agitated overnight. BUN and creatinine unchanged from yesterday. Started on bumex gtt yesterday. It doesn't appear that his urine output was charted during the day shift yesterday but he made 1200 cc of urine overnight and was - 700 cc for the shift. He is currently on high flow 40 L at 100%. Patient states "I want to get out of bed to a chair today". 09/20: Patient continued to have tachypnea and increased work of breathing throughout the morning yesterday, O2 sats stayed around 88-90% on high flow, still wasn't diuresing adequately with bumex/ albumin. He was intubated and and a RIJ vasc cath was placed, received first HD session yesterday afternoon. 09/21: Resting comfortably, no significant overnight events 09/22: Pulmonary edema continues to improve, tolerated spontaneous breathing trial x 2 hours this morning but had an episode of A fib with RVR and appeared anxious. Oozing continues from RIJ vasc cath, will reinforce with suture/ Gelfoam. 09/23: Currently being dialyzed. I placed a suture around the base of the RIJ vasc cath yesterday with Gelfoam reinforcement, less oozing today as per RN. Will attempt SBT after HD. 09/24: ETT exchanged yesterday due to cuff issue, no other overnight events. Tolerated HD yesterday without issue. Objective Vital Signs / I&O: Vital Signs 09/23/18 07:46 09/23/18 08:00 09/23/18 09:00 Temperature 98.3 F Pulse Rate 65 Respiratory Rate 18 18 18 Blood Pressure 169/74 H Pulse Oximetry 97 97 09/23/18 10:00 09/23/18 11:10 09/23/18 12:00 Temperature 98.6 F Pulse Rate 73 65 Respiratory Rate 18 18 Blood Pressure 152/71 H Pulse Oximetry 96 98 09/23/18 14:00 09/23/18 16:00 09/23/18 18:00 Temperature 98.4 F Pulse Rate 72 61 79 Respiratory Rate 18 Blood Pressure 145/63 H Pulse Oximetry 98 09/23/18 20:00 09/23/18 21:21 09/23/18 22:00 Temperature 97.7 F Pulse Rate 58 L 77 Respiratory Rate 18 18 Blood Pressure 130/64 Pulse Oximetry 96 95 09/23/18 23:38 09/24/18 00:00 09/24/18 02:00 Temperature 99 F Pulse Rate 60 52 L Respiratory Rate 16 18 Blood Pressure 142/64 H Pulse Oximetry 96 93 L 09/24/18 04:00 09/24/18 04:18 09/24/18 06:00 Temperature 98.9 F Pulse Rate 57 L 54 L Respiratory Rate 18 18 Blood Pressure 139/64 Pulse Oximetry 94 L 93 L Intake & Output 09/23/18 09/23/18 09/24/18 06:59 18:59 06:59 Intake Total 800 / 800 980 / 980 1249 / 1249 Output Total 550 / 550 4100 / 4100 0 / 0 Balance 250 / 250 -3120 / -3120 1249 / 1249 Weight 105.9 kg 107.6 kg Intake: IV 350 / 350 500 / 500 750 / 750 Precedex Inj 1,000 MCG In NS 250 / 250 250 / 250 250 / 250 Inj 240 ML @ 0.2 MCG/KG/HR 5.36 mls/hr IV.CONT TITRATE PRN Rx# :[id number] Flexbumin 25% Inj 100 ML @ 60 200 / 200 mls/hr IV.SIG WITH DIALYSIS PRN Rx#:[id number] Zosyn 3.375 GM Premix 50 ML @ 100 / 100 100 mls/hr IV.SIG Q6H [facility] Rx#: [id number] fentaNYL 10 mcg/mL Premix Drip 500 / 500 2,500 mcg In 250 ml @ 50 MCG/HR 5 mls/hr IV.SIG TITRATE PRN Rx #:[id number] Oral 0 / 0 0 / 0 Tube Feeding 390 / 390 380 / 380 499 / 499 Tube Irrigant 60 / 60 100 / 100 Output: Urine 0 / 0 Hemodialysis Amount 3500 / 3500 Urine Amount (Catheter) 550 / 550 600 / 600 Indwelling Urethral Catheter 550 / 550 600 / 600 Other: Date of Last Bowel Movement 09/19/18 09/22/18 09/23/18 # Bowel Movements 1 Result Diagrams: 09/24/18 03:53 09/24/18 03:53 Objective Remarks: GENERAL: Intubated and sedated SKIN: Warm and dry. HEAD: NCAT EYES: PERRL NECK: Supple, trachea midline. RIJ vasc cath present with some blood on biopatch , improved CARDIOVASCULAR: Regular rate and rhythm RESPIRATORY: Improved air entry bilaterally, currently on SIMV due to apneic pauses on CPAP GASTROINTESTINAL: Abdomen soft, non-tender, non-distended. MUSCULOSKELETAL: No cyanosis, 2+ pedal edema NEURO: GCS 10T ([id number]), RASS 0, easily arousable to voice Assessment and Plan - Assessment and Plan Plan: ASSESSMENT 1. Acute hypoxemic respiratory failure 2. Severe pulmonary edema 3. Left upper lobe pneumonia pr CT chest. 4. Acute kidney failure worsening 5. Agitated delirium 6. Coronary artery disease. 7. Diabetes mellitus. 8. Hypertension. 9. Chronic obstructive pulmonary disease. 10. Elevated BMI. 11. Leukocytosis 12. Transaminitis 13. Anemia. Plan Neuro: Monitor neuro status. On precedex/ fentanyl gtt for pain/ sedation, keep drips as low as possible for RASS 0 to -1 Continue seroquel BID Pulm: Intubated 09/19 for continued pulmonary edema/ resp distress Pulmonary edema continues to improve with HD Bronchodilators with albuterol/ipratropium aerosols every 4 hours with albuterol aerosols every 2 hours as needed dyspnea On Solu-Medrol 40 mg IVQ12, Symbicort 160/4.5 two puffs b.i.d. Pulm is following-Dr. Garcia Spontaneous breathing trials, wean vent as tolerated, would like to extubate in the next day or two CV: Cardizem 60 mg QID Monitor HR and BP keep MAP>65mmHg Episode of A fib with RVR during SBT yesterday Echo on 08/30/2018 EF of 50% to 55%. PA pressure 32 mmHg. : Monitor renal function, I's and O's, and avoid nephrotoxins. Renal US: No masses, no hydronephrosis Urine output improving (made 900 cc over the past 24 hrs), creat 2.62 Nephrology following (Dr. Krueger), dialyzed yesterday with 3500 cc taken off ARF likely due to ATN 2nd Vanco tox. GI: on pantoprazole 40 mg IV daily for GI prophylaxis. Continue TFs Monitor LFT's, US liver showed only ascites ID: s/p 1 week treatment for CAP, afebrile 09/12: normal resp zeb strep pneumonia and legionella urinary antigen negative Heme: Monitor CBC-- Hg stable Monitor RIJ vasc cath for oozing/ bleeding Endo: SSI with aspart insulin to medium scale with Accu-Chek for glycemic control Hold allopurinol until kidney function recovers GI prophylaxis with pantoprazole 40 mg daily DVT prophylaxis with SCD and SQH OVERALL: This patient remains critically ill and requires continued HD and mechanical ventilation. Level 2 follow up To help prompt me to consider important information that might be impacting today's encounter and assessment, information from prior notes written by myself or my colleagues may have been "brought forward" into today's note. My signature on this note, however, is an attestation that I personally performed the exam, history, and/or decision-making noted today, and, unless otherwise indicated, the interactions with patient, family, and staff as well as the review of records all occurred today. I also attest that the listed assessment and stated plan reflect my best clinical judgment today based on the combination of historical information, prior notes, and today's exam/ interactions. Code Status: Full
[2018-09-24] MEDS: Pantoprazole Inj 40 MG Vial IV.PUSH SCH (08:27)
[2018-09-24] MEDS: Heparin - SQ 10,000 UNITS/ML Vial SQ SCH ×2 (08:27→20:01)
[2018-09-24] MEDS: Chlorhexidine 0.12% Oral Kit 15 ML UDC OROPHARYNG SCH ×2 (08:28→19:59)
[2018-09-24] MEDS: dilTIAZem 60 MG Tablet PO SCH ×4 (08:28→20:01)
[2018-09-24] MEDS: Sodium Chloride 0.9% 2 ML Flush BID IV.FLUSH SCH ×2 (08:28→20:01)
[2018-09-24] MEDS: QUEtiapine 25 MG Tablet PO SCH ×2 (08:28→20:01)
[2018-09-24] MEDS: predniSONE 20 MG Tablet PO SCH (08:28)
[2018-09-24 08:41] LABS: Ovalocytes 1+; Platelet Morphology Normal (Normal)
[2018-09-24] MEDS: Budesonide-Formoterol 160/4.5 MCG 6 GM Inhaler INH SCH ×2 (09:58→20:01)
[2018-09-24] MEDS: Dexmedetomidine Inj 1,000 MCG in Sodium Chlor 0.9% Inj 240 ML IV.CONT PRN (10:06)
--- NOTE | 2018-09-24 12:09 | P.PN ---
Subjective Interval history: he is awake and responds to questions. Still on 55 % FIO2. was dialyzed. No fever. Physical Exam Vital signs: Vital Signs 09/23/18 14:00 09/23/18 16:00 09/23/18 18:00 Temperature 98.4 F Pulse Rate 72 61 79 Respiratory Rate 18 Blood Pressure 145/63 H Pulse Oximetry 98 09/23/18 20:00 09/23/18 21:21 09/23/18 22:00 Temperature 97.7 F Pulse Rate 58 L 77 Respiratory Rate 18 18 Blood Pressure 130/64 Pulse Oximetry 96 95 09/23/18 23:38 09/24/18 00:00 09/24/18 02:00 Temperature 99 F Pulse Rate 60 52 L Respiratory Rate 16 18 Blood Pressure 142/64 H Pulse Oximetry 96 93 L 09/24/18 04:00 09/24/18 04:18 09/24/18 06:00 Temperature 98.9 F Pulse Rate 57 L 54 L Respiratory Rate 18 18 Blood Pressure 139/64 Pulse Oximetry 94 L 93 L 09/24/18 07:35 09/24/18 10:03 09/24/18 11:45 Temperature Pulse Rate Respiratory Rate 18 13 17 Blood Pressure Pulse Oximetry 95 94 L Intake & Output 09/23/18 09/24/18 09/24/18 18:59 06:59 18:59 Intake Total 980 / 980 1249 / 1249 250 / 250 Output Total 4100 / 4100 450 / 450 Balance -3120 / -3120 799 / 799 250 / 250 Weight 107.6 kg Intake: IV 500 / 500 750 / 750 250 / 250 Precedex Inj 1,000 MCG In NS 250 / 250 250 / 250 250 / 250 Inj 240 ML @ 0.2 MCG/KG/HR 5.36 mls/hr IV.CONT TITRATE PRN Rx# :[id number] Flexbumin 25% Inj 100 ML @ 60 200 / 200 mls/hr IV.SIG WITH DIALYSIS PRN Rx#:[id number] fentaNYL 10 mcg/mL Premix Drip 500 / 500 2,500 mcg In 250 ml @ 50 MCG/HR 5 mls/hr IV.SIG TITRATE PRN Rx #:[id number] Oral 0 / 0 Tube Feeding 380 / 380 499 / 499 Tube Irrigant 100 / 100 Output: Hemodialysis Amount 3500 / 3500 Urine Amount (Catheter) 600 / 600 450 / 450 Indwelling Urethral Catheter 600 / 600 Straight 450 / 450 Other: Date of Last Bowel Movement 09/22/18 09/23/18 # Bowel Movements 1 Narrative: GENERAL: Well-nourished, Obese intubated patient. SKIN: Warm and dry. HEAD: Normocephalic. EYES: No scleral icterus. No injection or drainage. NECK: Supple, trachea midline. No JVD or lymphadenopathy. Dressing on the right side of neck CARDIOVASCULAR: S1-S2 irregular. RESPIRATORY: Breath sounds equal bilaterally. Crackles at bases. Occ Wheeze. GASTROINTESTINAL: Abdomen soft, non-tender, nondistended. EXTREMITIES: 1+ edema of legs NEUROLOGICAL:Awake and moves all. - Urinary Catheter Management Indwelling Urethral Catheter Cath placed during this visit: yes, but has since been removed by the nurse Reason for continuing: Hourly intake/output Insertion date: 09/18/18 Insertion time: 09:00 Removal date: 09/23/18 Removal time: 17:00 Straight Cath placed during this visit: no Results - Labs CBC & Chem 7: 09/24/18 03:53 09/24/18 03:53 Laboratory Results - last 24 hr 09/23/18 09/23/18 09/24/18 17:29 23:37 03:53 WBC 19.5 H RBC 3.33 L Hgb 9.8 L Hct 28.1 L MCV 84.5 MCH 29.6 MCHC 35.0 RDW 17.9 H Plt Count 86 L MPV 9.5 Prelim Diff (Auto) Slide review pending Neut % (Auto) 93.1 H Lymph % (Auto) 2.5 L Howard % (Auto) 4.3 Eos % (Auto) 0.0 Baso % (Auto) 0.1 Neut # (Auto) 18.2 H Lymph # (Auto) 0.5 L Howard # (Auto) 0.8 Eos # (Auto) 0.0 Baso # (Auto) 0.0 WBC Differential . Diff Scan Auto diff confirmed Differential Comment . Platelet Estimate Low L Platelet Morphology Normal Ovalocytes 1+ H Sodium Potassium Chloride Carbon Dioxide Anion Gap BUN Creatinine Estimated GFR POC Glucose 279 H 283 H Random Glucose Calcium Magnesium Total Bilirubin AST ALT Alkaline Phosphatase Total Protein Albumin 09/24/18 09/24/18 03:53 05:32 WBC RBC Hgb Hct MCV MCH MCHC RDW Plt Count MPV Prelim Diff (Auto) Neut % (Auto) Lymph % (Auto) Howard % (Auto) Eos % (Auto) Baso % (Auto) Neut # (Auto) Lymph # (Auto) Howard # (Auto) Eos # (Auto) Baso # (Auto) WBC Differential Diff Scan Differential Comment Platelet Estimate Platelet Morphology Ovalocytes Sodium 147 H Potassium 3.2 L Chloride 105 Carbon Dioxide 29.0 Anion Gap 13 BUN 85 H Creatinine 2.62 H Estimated GFR 24 L POC Glucose 230 H Random Glucose 217 H Calcium 8.3 L Magnesium 2.4 Total Bilirubin 0.9 AST 44 H ALT 125 H Alkaline Phosphatase 63 Total Protein 5.3 L Albumin 3.1 L Microbiology 09/21/18 12:20 Sputum - Endotracheal Gram Stain - Final 09/21/18 12:20 Sputum - Endotracheal Sputum Culture - Final Light growth normal respiratory zeb - Imaging Impressions Chest X-Ray 09/23/18 15:49 CONCLUSION: Loss of volume and increasing density throughout the left lung following exchange of endotracheal tube which may indicate bronchial plugging. No other significant change noted. 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 Acute hypoxemic respiratory failure 2. Left upper lobe pneumonia 3. B/l pulm infiltrates 4. Acute kidney injury. 5. Anemia. 6. Coronary artery disease. 7. Diabetes mellitus. 8. Hypertension. 9. Chronic obstructive pulmonary disease. 10. Obesity. Plan Pulm: 1) Continue with vent support and try a CPAP trial today. 2) Dialysis today 3) Cont Antibiotics 4) Cont Duoneb nebs qid. 5) CBC,CXR BMP in am 6) wean sedation. 7) OG tube with feeds 8) Prednisone 20 mg daily 9) Dialysis today
--- NOTE | 2018-09-24 13:37 | P.PNNP ---
Subjective Interval history: Patient is on the ventilator awake, being weaned down, discussed with Dr. Mcconnell Physical Exam Vital signs: Vital Signs 09/23/18 14:00 09/23/18 16:00 09/23/18 18:00 Temperature 98.4 F Pulse Rate 72 61 79 Respiratory Rate 18 Blood Pressure 145/63 H Pulse Oximetry 98 09/23/18 20:00 09/23/18 21:21 09/23/18 22:00 Temperature 97.7 F Pulse Rate 58 L 77 Respiratory Rate 18 18 Blood Pressure 130/64 Pulse Oximetry 96 95 09/23/18 23:38 09/24/18 00:00 09/24/18 02:00 Temperature 99 F Pulse Rate 60 52 L Respiratory Rate 16 18 Blood Pressure 142/64 H Pulse Oximetry 96 93 L 09/24/18 02:01 09/24/18 02:30 09/24/18 03:00 Temperature Pulse Rate 52 L 52 L 52 L Respiratory Rate 18 19 18 Blood Pressure 135/62 142/64 H Pulse Oximetry 94 L 94 L 93 L 09/24/18 03:01 09/24/18 03:31 09/24/18 04:00 Temperature 98.9 F Pulse Rate 53 L 57 L 57 L Respiratory Rate 18 18 18 Blood Pressure 136/61 142/63 H 139/64 Pulse Oximetry 94 L 95 94 L 09/24/18 04:01 09/24/18 04:18 09/24/18 04:31 Temperature Pulse Rate 56 L 61 Respiratory Rate 18 18 18 Blood Pressure 139/64 146/65 H Pulse Oximetry 93 L 93 L 94 L 09/24/18 05:00 09/24/18 05:01 09/24/18 05:31 Temperature Pulse Rate 54 L 56 L 55 L Respiratory Rate 19 18 18 Blood Pressure 142/62 H 131/60 Pulse Oximetry 92 L 91 L 95 09/24/18 06:00 09/24/18 06:01 09/24/18 06:30 Temperature Pulse Rate 54 L 54 L 57 L Respiratory Rate 18 18 18 Blood Pressure 116/57 L 127/58 L Pulse Oximetry 94 L 94 L 94 L 09/24/18 07:00 09/24/18 07:31 09/24/18 07:35 Temperature Pulse Rate 65 66 Respiratory Rate 16 20 18 Blood Pressure 135/63 118/58 L Pulse Oximetry 94 L 95 95 09/24/18 08:00 09/24/18 08:30 09/24/18 09:00 Temperature 98.5 F Pulse Rate 58 L 62 69 Respiratory Rate 18 18 12 Blood Pressure 117/58 L 132/60 141/64 H Pulse Oximetry 94 L 94 L 94 L 09/24/18 09:30 09/24/18 10:00 09/24/18 10:03 Temperature Pulse Rate 73 76 Respiratory Rate 14 15 13 Blood Pressure 146/65 H 148/65 H Pulse Oximetry 94 L 94 L 09/24/18 10:30 09/24/18 11:00 09/24/18 11:31 Temperature Pulse Rate 72 75 81 Respiratory Rate 14 16 20 Blood Pressure 138/60 155/67 H 161/67 H Pulse Oximetry 93 L 94 L 94 L 09/24/18 11:45 09/24/18 12:00 09/24/18 12:30 Temperature Pulse Rate 71 71 Respiratory Rate 17 11 L 15 Blood Pressure 131/62 140/64 Pulse Oximetry 94 L 94 L 95 09/24/18 13:00 Temperature Pulse Rate 70 Respiratory Rate 14 Blood Pressure 135/64 Pulse Oximetry 94 L Intake & Output 09/23/18 09/24/18 09/24/18 18:59 06:59 18:59 Intake Total 980 / 980 1249 / 1249 250 / 250 Output Total 4100 / 4100 450 / 450 Balance -3120 / -3120 799 / 799 250 / 250 Weight 107.6 kg Intake: IV 500 / 500 750 / 750 250 / 250 Precedex Inj 1,000 MCG In NS 250 / 250 250 / 250 250 / 250 Inj 240 ML @ 0.2 MCG/KG/HR 5.36 mls/hr IV.CONT TITRATE PRN Rx# :[id number] Flexbumin 25% Inj 100 ML @ 60 200 / 200 mls/hr IV.SIG WITH DIALYSIS PRN Rx#:[id number] fentaNYL 10 mcg/mL Premix Drip 500 / 500 2,500 mcg In 250 ml @ 50 MCG/HR 5 mls/hr IV.SIG TITRATE PRN Rx #:[id number] Oral 0 / 0 Tube Feeding 380 / 380 499 / 499 Tube Irrigant 100 / 100 Output: Hemodialysis Amount 3500 / 3500 Urine Amount (Catheter) 600 / 600 450 / 450 Indwelling Urethral Catheter 600 / 600 Straight 450 / 450 Other: Date of Last Bowel Movement 09/22/18 09/23/18 09/23/18 # Bowel Movements 1 Narrative: GENERAL: Well-nourished, Obese intubated patient. SKIN: Warm and dry. HEAD: Normocephalic. EYES: No scleral icterus. No injection or drainage. NECK: Supple, trachea midline. No JVD or lymphadenopathy. Dressing on the right side of neck CARDIOVASCULAR: S1-S2 irregular. RESPIRATORY: Breath sounds equal bilaterally. Crackles at bases. Occ Wheeze. GASTROINTESTINAL: Abdomen soft, non-tender, nondistended. EXTREMITIES: 1+ edema of legs NEUROLOGICAL:Awake and moves all. - Urinary Catheter Management Indwelling Urethral Catheter Cath placed during this visit: yes, but has since been removed by the nurse Reason for continuing: Hourly intake/output Insertion date: 09/18/18 Insertion time: 09:00 Removal date: 09/23/18 Removal time: 17:00 Straight Cath placed during this visit: no Assessment and Plan - Assessment (1) Acute renal failure Code(s): N17.9 - Acute kidney failure, unspecified Status: Acute (2) COPD (chronic obstructive pulmonary disease) Code(s): J44.9 - Chronic obstructive pulmonary disease, unspecified Status: Acute (3) Pneumonia Code(s): J18.9 - Pneumonia, unspecified organism Status: Acute (4) Mood disorder due to known physiological condition with depressive features Code(s): F06.31 - Mood disorder due to known physiological condition with depressive features Status: Acute (5) Gout Code(s): M10.9 - Gout, unspecified Status: Acute (6) Hypertension Code(s): I10 - Essential (primary) hypertension Status: Acute - Plan Patient has acute tubular necrosis likely due to vancomycin levels are high Creatinine 2.7 -> 3 -> 3.2 -> 3.3-3.3-3.29-3.30-3.15-3.16-2.78-3.2-3.5 -2.62 Monitor BMP, discontinue potassium Monitor intake and output Ongoing peripheral edema Continue to monitor. He did well with hemodialysis 3.5 L taken off yesterday, Replace potassium He has urinary retention 600 mL removed with straight catheter and repeat scan did not show any residual urine Continue to monitor next dialysis is tomorrow
[2018-09-24] MEDS: Potassium Chlor 20 mEq Premix 20 MEQ/100 ML PIGGYBACK IV.SIG SCH ×2 (15:52→16:11)
[2018-09-25] MEDS: Dexmedetomidine Inj 1,000 MCG in Sodium Chlor 0.9% Inj 240 ML IV.CONT PRN (03:38)
[2018-09-25] MEDS: Oral Hygiene Kit OROPHARYNG SCH ×3 (03:38→16:34)
[2018-09-25] MEDS: Insulin NovoLOG Aspart Correctional Sugar Inj SQ SCH ×3 (05:15→18:34)
[2018-09-25 06:46] LABS: Baso % (Auto) 0.2 % (0.0-2.0); Eos % (Auto) 0.1 % (0.0-4.0); Hematocrit 28.5 % (39.0-51.0); Hemoglobin 9.6 gm/dL (13.0-17.0); Lymph # (Auto) 0.4 th/mm3 (1.0-4.8); Lymph % (Auto) 2.1 % (9.0-44.0); Mean Corpuscular HGB Conc 33.8 % (32.0-36.0); Mean Corpuscular Hemoglobin 29.4 pg (27.0-34.0); Mean Corpuscular Volume 86.9 fL (80.0-100.0); Mean Platelet Volume 10.2 fL (7.0-11.0); Mono # (Auto) 0.7 th/mm3 (0.0-0.9); Mono % (Auto) 3.9 % (0.0-8.0); Neut # (Auto) 17.3 th/mm3 (1.8-7.7); Neut % (Auto) 93.7 % (16.0-70.0); Platelet Count 83 th/mm3 (150-450); Red Blood Count 3.28 mil/mm3 (4.50-5.90); Red Cell Distribution Width 18.2 % (11.6-17.2); White Blood Count 18.4 th/mm3 (4.0-11.0)
[2018-09-25 07:16] LABS: Alanine Aminotransferase 102 U/L (12-78); Albumin 2.8 g/dL (3.4-5.0); Alkaline Phosphatase 66 U/L (45-117); Anion Gap 10 meq/L (5-15); Aspartate Aminotransferase 30 U/L (15-37); Blood Urea Nitrogen 101 mg/dL (7-18); Calcium 8.1 mg/dL (8.5-10.1); Carbon Dioxide 28.8 meq/L (21.0-32.0); Chloride 108 meq/L (98-107); Glomerular Filtration Rate 21 mL/min (>89); Glucose,Random 207 mg/dL (74-106); Magnesium 2.3 mg/dL (1.5-2.5); Potassium 3.7 meq/L (3.5-5.1); Sodium 147 meq/L (136-145); Total Protein 5.1 g/dL (6.4-8.2)
--- NOTE | 2018-09-25 07:54 | P.PNCC ---
Subjective Subjective Remarks/Hospital Course: Patient is a 78-year-old male with a past medical history of ? COPD, hypertension, diabetes mellitus, coronary artery disease and gout. He was admitted to inpatient medication psych on 08/17/2018 for suicidal ideation and acute kidney injury. He was found to have a creatinine of 1.64. During his hospital course, the patient was seen by hospitalist service. He had a chest x- ray on 08/19/2018. At that time it showed mild basilar opacity, probably subsegmental atelectasis with trace pleural fluid. Then, he had a CT scan of the chest on 09/07/2018 which showed suspected left hilar mass, mild congestive heart failure with small bilateral pleural effusions, left upper lobe pneumonia and focal atypical appearing infiltrate in the right middle lobe with dependent atelectasis of both lower lobes. He was started on broad-spectrum antibiotics. The patient had a V/Q scan on 09/08/2018 which showed a low probability for pulmonary embolism. Helicat was called for increased O2 requirements and the patient was subsequently transferred to [facility] [place] and Critical Care Medicine was consulted for critical care management. When seen, the patient was on partial nonrebreather mask with a saturation of 100%. Blood pressure 151/70 with a pulse of 89. The patient states that he quit smoking over 20 years ago. He does not use any inhalers or nebulizers at home. He denies any nausea, vomiting or abdominal pain. 09/11 Patient is lying in bed in NAD. Afebrile. 09/12 Patient is lying in bed in NAD. On 4L oxygen. Afebrile. Renal function worse today with Cr: 2.70 from 1.81 09/13 Patient is lying in bed in NAD. Afebrile, Renal function is worsening with Cr: 3.04 from 2.70 09/14 Patient dropped his sats overnight placed on partial rebreather, CXR this morning showed b/l pulm infiltrates. Given Lasix 40mg IV x1. Afebrile. 09/15: Afebrile. Lying in bed in no acute distress. Currently on high flow at 90% nasal cannula. 09/16 Patient is on high flow oxygen 30L with 90% FIO2. Afebrile: 09/17 Patient is on 35L high flow oxyge with 60% FIO2. Awake and alert, Afebrile. 09/18: Patient currently more critical FiO2 requirement has increased overnight currently on 90% FiO2 with high flow oxygen to maintain sat above 90%. Chest x- ray shows severe bilateral upper lobe infiltrates with appearance of pulmonary edema. With Bumex IV push patient has urine output more than 2.5 L, however not achieving adequate and negative balance. BUN 18 today with creatinine of 3.3. Will discontinue IV Bumex and start Bumex infusion at 1 mg/h along with IV albumin. 09/19: Agitated overnight. BUN and creatinine unchanged from yesterday. Started on bumex gtt yesterday. It doesn't appear that his urine output was charted during the day shift yesterday but he made 1200 cc of urine overnight and was - 700 cc for the shift. He is currently on high flow 40 L at 100%. Patient states "I want to get out of bed to a chair today". 09/20: Patient continued to have tachypnea and increased work of breathing throughout the morning yesterday, O2 sats stayed around 88-90% on high flow, still wasn't diuresing adequately with bumex/ albumin. He was intubated and and a RIJ vasc cath was placed, received first HD session yesterday afternoon. 09/21: Resting comfortably, no significant overnight events 09/22: Pulmonary edema continues to improve, tolerated spontaneous breathing trial x 2 hours this morning but had an episode of A fib with RVR and appeared anxious. Oozing continues from RIJ vasc cath, will reinforce with suture/ Gelfoam. 09/23: Currently being dialyzed. I placed a suture around the base of the RIJ vasc cath yesterday with Gelfoam reinforcement, less oozing today as per RN. Will attempt SBT after HD. 09/24: ETT exchanged yesterday due to cuff issue, no other overnight events. Tolerated HD yesterday without issue. 09/25: No overnight events. Tolerated spontaneous breathing trial x 1-2 hours yesterday but had to be placed back on AC due to apneic pauses. Continue to aggressively wean vent today. Currently being dialyzed. Objective Vital Signs / I&O: Vital Signs 09/24/18 08:00 09/24/18 08:30 09/24/18 09:00 Temperature 98.5 F Pulse Rate 58 L 62 69 Respiratory Rate 18 18 12 Blood Pressure 117/58 L 132/60 141/64 H Pulse Oximetry 94 L 94 L 94 L 09/24/18 09:30 09/24/18 10:00 09/24/18 10:03 Temperature Pulse Rate 73 76 Respiratory Rate 14 15 13 Blood Pressure 146/65 H 148/65 H Pulse Oximetry 94 L 94 L 09/24/18 10:30 09/24/18 11:00 09/24/18 11:31 Temperature Pulse Rate 72 75 81 Respiratory Rate 14 16 20 Blood Pressure 138/60 155/67 H 161/67 H Pulse Oximetry 93 L 94 L 94 L 09/24/18 11:45 09/24/18 12:00 09/24/18 12:30 Temperature Pulse Rate 71 71 Respiratory Rate 17 11 L 15 Blood Pressure 131/62 140/64 Pulse Oximetry 94 L 94 L 95 09/24/18 13:00 09/24/18 13:30 09/24/18 14:00 Temperature Pulse Rate 70 73 69 Respiratory Rate 14 16 15 Blood Pressure 135/64 135/61 127/60 Pulse Oximetry 94 L 94 L 94 L 09/24/18 14:30 09/24/18 15:00 09/24/18 15:11 Temperature Pulse Rate 80 74 Respiratory Rate 17 15 18 Blood Pressure 142/65 H 127/58 L Pulse Oximetry 100 09/24/18 15:30 09/24/18 16:00 09/24/18 16:30 Temperature 98.6 F Pulse Rate 75 70 74 Respiratory Rate 20 19 18 Blood Pressure 137/63 123/57 L 144/67 H Pulse Oximetry 09/24/18 17:00 09/24/18 18:00 09/24/18 19:52 Temperature Pulse Rate 68 68 Respiratory Rate 19 18 Blood Pressure 131/61 Pulse Oximetry 95 09/24/18 20:00 09/24/18 22:00 09/25/18 00:00 Temperature 99.3 F 98.7 F Pulse Rate 66 63 63 Respiratory Rate 18 18 Blood Pressure 123/58 L 123/58 L Pulse Oximetry 96 96 09/25/18 00:15 09/25/18 02:00 09/25/18 03:38 Temperature Pulse Rate 60 Respiratory Rate 18 18 Blood Pressure Pulse Oximetry 97 95 09/25/18 04:00 09/25/18 06:00 09/25/18 07:23 Temperature 98.8 F Pulse Rate 61 66 Respiratory Rate 18 8 L Blood Pressure 121/58 L Pulse Oximetry 95 97 Intake & Output 09/24/18 09/25/18 09/25/18 18:59 06:59 18:59 Intake Total 1114 / 1114 1029 / 1029 Output Total 3500 / 3500 Balance -2386 / -2386 1029 / 1029 Weight 108 kg Intake: IV 450 / 450 500 / 500 Precedex Inj 1,000 MCG In NS 250 / 250 250 / 250 Inj 240 ML @ 0.2 MCG/KG/HR 5.36 mls/hr IV.CONT TITRATE PRN Rx# :[id number] KCl 20 mEq Premix Inj 20 meq In 200 / 200 100 ml @ 50 mls/hr IV.SIG Q2H ZEKE Rx#:[id number] fentaNYL 10 mcg/mL Premix Drip 250 / 250 2,500 mcg In 250 ml @ 50 MCG/HR 5 mls/hr IV.SIG TITRATE PRN Rx #:[id number] Oral 0 / 0 Tube Feeding 544 / 544 479 / 479 Tube Irrigant 120 / 120 Water Bolus Amount 50 / 50 Output: Hemodialysis Amount 3500 / 3500 Other: # Incontinent Voids 1 Date of Last Bowel Movement 09/23/18 09/23/18 # Bowel Movements 1 # Incontinent Bowel Movements 1 Result Diagrams: 09/25/18 04:40 09/25/18 04:40 Objective Remarks: GENERAL: Intubated and sedated SKIN: Warm and dry. HEAD: NCAT EYES: PERRL NECK: Supple, trachea midline. RIJ vasc cath present with some blood on biopatch , improved CARDIOVASCULAR: Regular rate and rhythm RESPIRATORY: Improved air entry bilaterally, no vent dyssynchrony GASTROINTESTINAL: Abdomen soft, non-tender, non-distended. MUSCULOSKELETAL: No cyanosis, 1+ pedal edema NEURO: GCS 10T ([id number]), RASS 0, easily arousable to voice, follows commands Assessment and Plan - Assessment and Plan Plan: ASSESSMENT 1. Acute hypoxemic respiratory failure 2. Severe acute pulmonary edema 3. Left upper lobe pneumonia per CT chest. 4. Acute kidney failure worsening 5. Agitated delirium 6. Coronary artery disease. 7. Diabetes mellitus. 8. Hypertension. 9. Chronic obstructive pulmonary disease. 10. Elevated BMI. 11. Leukocytosis 12. Transaminitis 13. Acute blood loss anemia Plan Neuro: Monitor neuro status. On precedex/ fentanyl gtt for pain/ sedation, keep drips as low as possible for RASS 0 to -1, daily sedation vacations Continue seroquel BID Pulm: Intubated 09/19 for continued pulmonary edema/ resp distress Pulmonary edema continues to improve with HD Bronchodilators with albuterol/ipratropium aerosols every 4 hours with albuterol aerosols every 2 hours as needed dyspnea On Solu-Medrol 40 mg IVQ12, Symbicort 160/4.5 two puffs b.i.d. Pulm is following-Dr. Garcia Spontaneous breathing trials- patient did well on SIMV/ CPAP for several hours yesterday but was placed back on AC due to apneic pauses, continue to wean vent as able. Today is intubation day #6, would like to wean to extubate as soon as possible. CV: Cardizem 60 mg QID Monitor HR and BP keep MAP>65mmHg BP borderline during HD, albumin bolus PRN Echo on 08/30/2018 EF of 50% to 55%. PA pressure 32 mmHg. : Monitor renal function, I's and O's, and avoid nephrotoxins. Renal US: No masses, no hydronephrosis Urine output 600 cc over the past 24 hrs, creat 2.87 Nephrology following (Dr. Krueger), dialysis today ARF likely due to ATN 2nd Vanco tox. GI: on pantoprazole 40 mg IV daily for GI prophylaxis. Continue TFs Monitor LFT's, US liver showed only ascites ID: s/p 1 week treatment for CAP, afebrile, leukocytosis improving 09/12: normal resp zeb strep pneumonia and legionella urinary antigen negative Heme: Monitor CBC-- Hg stable Monitor RIJ vasc cath for oozing/ bleeding Endo: SSI with aspart insulin to medium scale with Accu-Chek for glycemic control Hold allopurinol until kidney function recovers GI prophylaxis with pantoprazole 40 mg daily DVT prophylaxis with SCD and SQH OVERALL: This patient remains critically ill and requires continued HD and mechanical ventilation. Level 2 follow up To help prompt me to consider important information that might be impacting today's encounter and assessment, information from prior notes written by myself or my colleagues may have been "brought forward" into today's note. My signature on this note, however, is an attestation that I personally performed the exam, history, and/or decision-making noted today, and, unless otherwise indicated, the interactions with patient, family, and staff as well as the review of records all occurred today. I also attest that the listed assessment and stated plan reflect my best clinical judgment today based on the combination of historical information, prior notes, and today's exam/ interactions. Code Status: Full
[2018-09-25 08:02] LABS: Lymphocytes 3 % (9-44); Monocytes 3 % (0-8); Myelocytes 3 % (0-0); Platelet Morphology Normal (Normal)
[2018-09-25 08:03] LABS: Ovalocytes 1+
[2018-09-25] MEDS: Pantoprazole Inj 40 MG Vial IV.PUSH SCH (08:29)
[2018-09-25] MEDS: dilTIAZem 60 MG Tablet PO SCH ×4 (08:29→22:42)
[2018-09-25] MEDS: predniSONE 20 MG Tablet PO SCH (08:29)
[2018-09-25] MEDS: Heparin - SQ 10,000 UNITS/ML Vial SQ SCH ×2 (08:29→22:42)
[2018-09-25] MEDS: QUEtiapine 25 MG Tablet PO SCH ×2 (08:29→22:42)
[2018-09-25] MEDS: Sodium Chloride 0.9% 2 ML Flush BID IV.FLUSH SCH ×2 (08:29→22:42)
[2018-09-25] MEDS: Chlorhexidine 0.12% Oral Kit 15 ML UDC OROPHARYNG SCH ×2 (08:29→19:49)
[2018-09-25] MEDS: Budesonide-Formoterol 160/4.5 MCG 6 GM Inhaler INH SCH ×2 (08:30→22:42)
[2018-09-25] MEDS: Heparin 10,000 UNITS/10 ML Vial (for IV use) OTHER PRN (10:06)
--- NOTE | 2018-09-25 11:08 | P.PNNP ---
Subjective Interval history: Patient is seen during hemodialysis remains intubated on ventilator Physical Exam Vital signs: Vital Signs 09/24/18 11:31 09/24/18 11:45 09/24/18 12:00 Temperature Pulse Rate 81 71 Respiratory Rate 20 17 11 L Blood Pressure 161/67 H 131/62 Pulse Oximetry 94 L 94 L 94 L 09/24/18 12:30 09/24/18 13:00 09/24/18 13:30 Temperature Pulse Rate 71 70 73 Respiratory Rate 15 14 16 Blood Pressure 140/64 135/64 135/61 Pulse Oximetry 95 94 L 94 L 09/24/18 14:00 09/24/18 14:30 09/24/18 15:00 Temperature Pulse Rate 69 80 74 Respiratory Rate 15 17 15 Blood Pressure 127/60 142/65 H 127/58 L Pulse Oximetry 94 L 09/24/18 15:11 09/24/18 15:30 09/24/18 16:00 Temperature 98.6 F Pulse Rate 75 70 Respiratory Rate 18 20 19 Blood Pressure 137/63 123/57 L Pulse Oximetry 100 09/24/18 16:30 09/24/18 17:00 09/24/18 18:00 Temperature Pulse Rate 74 68 68 Respiratory Rate 18 19 Blood Pressure 144/67 H 131/61 Pulse Oximetry 09/24/18 19:52 09/24/18 20:00 09/24/18 22:00 Temperature 99.3 F Pulse Rate 66 63 Respiratory Rate 18 18 Blood Pressure 123/58 L Pulse Oximetry 95 96 09/25/18 00:00 09/25/18 00:15 09/25/18 02:00 Temperature 98.7 F Pulse Rate 63 60 Respiratory Rate 18 18 Blood Pressure 123/58 L Pulse Oximetry 96 97 09/25/18 03:38 09/25/18 04:00 09/25/18 06:00 Temperature 98.8 F Pulse Rate 61 66 Respiratory Rate 18 18 Blood Pressure 121/58 L Pulse Oximetry 95 95 09/25/18 07:23 Temperature Pulse Rate Respiratory Rate 8 L Blood Pressure Pulse Oximetry 97 Intake & Output 09/24/18 09/25/18 09/25/18 18:59 06:59 18:59 Intake Total 1114 / 1114 1029 / 1029 Output Total 3500 / 3500 Balance -2386 / -2386 1029 / 1029 Weight 108 kg Intake: IV 450 / 450 500 / 500 Precedex Inj 1,000 MCG In NS 250 / 250 250 / 250 Inj 240 ML @ 0.2 MCG/KG/HR 5.36 mls/hr IV.CONT TITRATE PRN Rx# :[id number] KCl 20 mEq Premix Inj 20 meq In 200 / 200 100 ml @ 50 mls/hr IV.SIG Q2H ZEKE Rx#:[id number] fentaNYL 10 mcg/mL Premix Drip 250 / 250 2,500 mcg In 250 ml @ 50 MCG/HR 5 mls/hr IV.SIG TITRATE PRN Rx #:[id number] Oral 0 / 0 Tube Feeding 544 / 544 479 / 479 Tube Irrigant 120 / 120 Water Bolus Amount 50 / 50 Output: Hemodialysis Amount 3500 / 3500 Other: # Incontinent Voids 1 Date of Last Bowel Movement 09/23/18 09/23/18 # Bowel Movements 1 # Incontinent Bowel Movements 1 Narrative: GENERAL: Well-nourished, Obese intubated patient. SKIN: Warm and dry. HEAD: Normocephalic. EYES: No scleral icterus. No injection or drainage. NECK: Supple, trachea midline. No JVD or lymphadenopathy. Dressing on the right side of neck CARDIOVASCULAR: S1-S2 irregular. RESPIRATORY: Breath sounds equal bilaterally. Crackles at bases. Occ Wheeze. GASTROINTESTINAL: Abdomen soft, non-tender, nondistended. EXTREMITIES: 1+ edema of legs NEUROLOGICAL: Sedated on ventilator. - Urinary Catheter Management Indwelling Urethral Catheter Cath placed during this visit: yes, but has since been removed by the nurse Reason for continuing: Hourly intake/output Insertion date: 09/18/18 Insertion time: 09:00 Removal date: 09/23/18 Removal time: 17:00 Straight Cath placed during this visit: no Assessment and Plan - Assessment (1) Acute renal failure Code(s): N17.9 - Acute kidney failure, unspecified Status: Acute (2) COPD (chronic obstructive pulmonary disease) Code(s): J44.9 - Chronic obstructive pulmonary disease, unspecified Status: Acute (3) Pneumonia Code(s): J18.9 - Pneumonia, unspecified organism Status: Acute (4) Mood disorder due to known physiological condition with depressive features Code(s): F06.31 - Mood disorder due to known physiological condition with depressive features Status: Acute (5) Gout Code(s): M10.9 - Gout, unspecified Status: Acute (6) Hypertension Code(s): I10 - Essential (primary) hypertension Status: Acute - Plan Patient has acute tubular necrosis likely due to vancomycin levels are high Creatinine 2.7 -> 3 -> 3.2 -> 3.3-3.3-3.29-3.30-3.15-3.16-2.78-3.2-3.5 -2.62-- 2.87 Seen during hemodialysis 3 L plan for today next dialysis on Sunday Monitor BMP, discontinue potassium Monitor intake and output Ongoing peripheral edema Continue to monitor. Replace potassium Continue to monitor next dialysis is Sunday
[2018-09-25] MEDS ORDERED: Potassium Chlor 20 mEq Premix 20 MEQ/100 ML PIGGYBACK IV.SIG ONE (12:00)
--- NOTE | 2018-09-25 12:40 | P.DIET ---
Nutritional Evaluation Type of nutrition evaluation: follow-up Nutrition consult regarding: Tube Feeding Screening comments: 09/20 TF review Subjective Subjective Comments: SCCM and ASPEN guidelines for energy needs Objective - Diagnosis respiratory distress - Objective % IBW: 132 Energy Needs - Lower Range (kCal/kg): 22 Energy Needs - Upper Range (kCal/kg): 25 Lower Limit kCal/kg (kCals): 1,660 Upper Limit kCal/kg (kCals): 1,837 Lower Limit Protein Factor (Grams per Kg): 1.1 Upper Limit Protein Factor (Grams per Kg): 1.3 Lower Protein Needs (Protein): 83 Upper Protein Needs (Protein): 98 Dietitian Reviewed in Medical Record: Current diet, Curent medications, Intake & Output, Labs, Medical history Diet Order: NPO, TF Objective Comments: PMH: DM, gout, heart disease, hypokalemia MedS: fentanyl, epogen, vit B12 Labs: BUN 101, Cr 2.87, GFR 21 POC glucose 230 235 240 Random glucose 217 207 Assessment Assessment: Pt remains intubated w/ dialysis, [facility] Pt scheduled for dialysis today and undergoing weaning for vent. Pt currently receiving Nepro 1.8 @ 45mL/hr continuous via OGT. RD agree with Nepro 1.8 @ 45mL /hr to provide 1944 kcal, 88g of protein, and 785mL of free water to best meet pts nutritional needs. Monitor TF tolerance and renal labs. Labs reviewed, dietitian following. Additional recs to follow r/t medical course. Recommendations: 1. RD agree with Nepro 1.8 @ 45mL/hr to best meet pts nutritional needs 2. Monitor TF tolerance and renal labs 3. Dietitian following 4. Additional recs to follow r/t medical course Dietitian to Monitor: Lab values, Renal labs, Intake & Output, Tube feeding tolerance, Medical course
--- NOTE | 2018-09-25 13:07 | P.PN ---
Subjective Interval history: Was on Dialysis today. Tolerated CPAP for 2 hrs. Now on 40 % FIO2 Awake on the vent. Physical Exam Vital signs: Vital Signs 09/24/18 13:00 09/24/18 13:30 09/24/18 14:00 Temperature Pulse Rate 70 73 69 Respiratory Rate 14 16 15 Blood Pressure 135/64 135/61 127/60 Pulse Oximetry 94 L 94 L 94 L 09/24/18 14:30 09/24/18 15:00 09/24/18 15:11 Temperature Pulse Rate 80 74 Respiratory Rate 17 15 18 Blood Pressure 142/65 H 127/58 L Pulse Oximetry 100 09/24/18 15:30 09/24/18 16:00 09/24/18 16:30 Temperature 98.6 F Pulse Rate 75 70 74 Respiratory Rate 20 19 18 Blood Pressure 137/63 123/57 L 144/67 H Pulse Oximetry 09/24/18 17:00 09/24/18 18:00 09/24/18 19:52 Temperature Pulse Rate 68 68 Respiratory Rate 19 18 Blood Pressure 131/61 Pulse Oximetry 95 09/24/18 20:00 09/24/18 22:00 09/25/18 00:00 Temperature 99.3 F 98.7 F Pulse Rate 66 63 63 Respiratory Rate 18 18 Blood Pressure 123/58 L 123/58 L Pulse Oximetry 96 96 09/25/18 00:15 09/25/18 02:00 09/25/18 03:38 Temperature Pulse Rate 60 Respiratory Rate 18 18 Blood Pressure Pulse Oximetry 97 95 09/25/18 04:00 09/25/18 05:01 09/25/18 05:31 Temperature 98.8 F Pulse Rate 61 61 87 Respiratory Rate 18 20 11 L Blood Pressure 121/58 L 158/77 H Pulse Oximetry 95 96 96 09/25/18 06:00 09/25/18 06:01 09/25/18 06:30 Temperature Pulse Rate 66 68 55 L Respiratory Rate 16 14 18 Blood Pressure 128/60 103/53 L Pulse Oximetry 97 97 98 09/25/18 07:00 09/25/18 07:01 09/25/18 07:23 Temperature Pulse Rate 61 65 Respiratory Rate 18 17 8 L Blood Pressure 135/63 Pulse Oximetry 98 99 97 09/25/18 07:30 09/25/18 08:00 09/25/18 08:01 Temperature Pulse Rate 61 52 L 52 L Respiratory Rate 18 15 19 Blood Pressure 131/60 104/52 L Pulse Oximetry 98 98 98 09/25/18 08:30 09/25/18 09:00 09/25/18 09:08 Temperature Pulse Rate 67 60 56 L Respiratory Rate 18 16 18 Blood Pressure 155/67 H 120/56 L 109/53 L Pulse Oximetry 98 98 98 09/25/18 09:09 09/25/18 09:10 09/25/18 09:15 Temperature Pulse Rate 56 L 56 L 57 L Respiratory Rate 18 18 18 Blood Pressure 114/56 L 106/53 L 95/55 L Pulse Oximetry 98 98 98 09/25/18 09:30 09/25/18 09:45 09/25/18 10:00 Temperature Pulse Rate 56 L 54 L 49 L Respiratory Rate 18 18 18 Blood Pressure 83/46 L 87/54 L 90/52 L Pulse Oximetry 99 99 98 09/25/18 10:15 09/25/18 10:30 09/25/18 10:45 Temperature Pulse Rate 49 L 48 L 47 L Respiratory Rate 18 18 18 Blood Pressure 100/58 L 111/54 L 113/56 L Pulse Oximetry 99 99 99 09/25/18 11:00 09/25/18 11:15 09/25/18 11:30 Temperature Pulse Rate 48 L 47 L 47 L Respiratory Rate 18 18 18 Blood Pressure 109/58 L 103/55 L 109/58 L Pulse Oximetry 99 98 99 09/25/18 11:45 09/25/18 12:00 Temperature Pulse Rate 47 L 47 L Respiratory Rate 18 18 Blood Pressure 119/58 L 130/61 Pulse Oximetry 99 99 Intake & Output 09/24/18 09/25/18 09/25/18 18:59 06:59 18:59 Intake Total 1114 / 1114 1029 / 1029 Output Total 3500 / 3500 Balance -2386 / -2386 1029 / 1029 Weight 108 kg Intake: IV 450 / 450 500 / 500 Precedex Inj 1,000 MCG In NS 250 / 250 250 / 250 Inj 240 ML @ 0.2 MCG/KG/HR 5.36 mls/hr IV.CONT TITRATE PRN Rx# :[id number] KCl 20 mEq Premix Inj 20 meq In 200 / 200 100 ml @ 50 mls/hr IV.SIG Q2H ZEKE Rx#:[id number] fentaNYL 10 mcg/mL Premix Drip 250 / 250 2,500 mcg In 250 ml @ 50 MCG/HR 5 mls/hr IV.SIG TITRATE PRN Rx #:[id number] Oral 0 / 0 Tube Feeding 544 / 544 479 / 479 Tube Irrigant 120 / 120 Water Bolus Amount 50 / 50 Output: Hemodialysis Amount 3500 / 3500 Other: # Incontinent Voids 1 Date of Last Bowel Movement 09/23/18 09/23/18 # Bowel Movements 1 # Incontinent Bowel Movements 1 Narrative: GENERAL: Well-nourished, Obese intubated patient. SKIN: Warm and dry. HEAD: Normocephalic. EYES: No scleral icterus. No injection or drainage. PERRL NECK: Supple, trachea midline. No JVD or lymphadenopathy. Dressing on the right side of neck CARDIOVASCULAR: S1-S2 irregular. RESPIRATORY: Breath sounds equal bilaterally. Crackles at bases. Occ Wheeze. GASTROINTESTINAL: Abdomen soft, non-tender, nondistended. EXTREMITIES: 1+ edema of legs NEUROLOGICAL: Sedated on ventilator. - Urinary Catheter Management Indwelling Urethral Catheter Cath placed during this visit: yes, but has since been removed by the nurse Reason for continuing: Hourly intake/output Insertion date: 09/18/18 Insertion time: 09:00 Removal date: 09/23/18 Removal time: 17:00 Straight Cath placed during this visit: no Results - Labs CBC & Chem 7: 09/25/18 04:40 09/25/18 04:40 Laboratory Results - last 24 hr 09/24/18 09/24/18 09/25/18 16:03 23:18 04:40 WBC 18.4 H RBC 3.28 L Hgb 9.6 L Hct 28.5 L MCV 86.9 MCH 29.4 MCHC 33.8 RDW 18.2 H Plt Count 83 L MPV 10.2 Prelim Diff (Auto) Slide review pending Neut % (Auto) 93.7 H Lymph % (Auto) 2.1 L [place] % (Auto) 3.9 Eos % (Auto) 0.1 Baso % (Auto) 0.2 Neut # (Auto) 17.3 H Lymph # (Auto) 0.4 L [place] # (Auto) 0.7 Eos # (Auto) 0.0 Baso # (Auto) 0.0 WBC Differential Manual diff final Seg Neuts % (Manual) 88 H Band Neuts % (Manual) 3 Lymphocytes % (Manual) 3 L Monocytes % (Manual) 3 Myelocytes % (Man) 3 H Abs Neuts (Manual) 17.3 H Differential Comment . Platelet Estimate Low L Platelet Morphology Normal Ovalocytes 1+ H Sodium Potassium Chloride Carbon Dioxide Anion Gap BUN Creatinine Estimated GFR POC Glucose 213 H 235 H Random Glucose Calcium Magnesium Total Bilirubin AST ALT Alkaline Phosphatase Total Protein Albumin 09/25/18 09/25/18 04:40 05:13 WBC RBC Hgb Hct MCV MCH MCHC RDW Plt Count MPV Prelim Diff (Auto) Neut % (Auto) Lymph % (Auto) [place] % (Auto) Eos % (Auto) Baso % (Auto) Neut # (Auto) Lymph # (Auto) [place] # (Auto) Eos # (Auto) Baso # (Auto) WBC Differential Seg Neuts % (Manual) Band Neuts % (Manual) Lymphocytes % (Manual) Monocytes % (Manual) Myelocytes % (Man) Abs Neuts (Manual) Differential Comment Platelet Estimate Platelet Morphology Ovalocytes Sodium 147 H Potassium 3.7 Chloride 108 H Carbon Dioxide 28.8 Anion Gap 10 BUN 101 H Creatinine 2.87 H Estimated GFR 21 L POC Glucose 240 H Random Glucose 207 H Calcium 8.1 L Magnesium 2.3 Total Bilirubin 0.9 AST 30 ALT 102 H Alkaline Phosphatase 66 Total Protein 5.1 L Albumin 2.8 L Assessment and Plan - Assessment (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 Acute hypoxemic respiratory failure 2. Left upper lobe pneumonia 3. B/l pulm infiltrates 4. Acute kidney injury. 5. Anemia. 6. Coronary artery disease. 7. Diabetes mellitus. 8. Hypertension. 9. Chronic obstructive pulmonary disease. 10. Obesity. Plan Pulm: 1) Continue with vent support and A/C rate 16 FIO2 40% 2) Dialysis today 3) Cont Antibiotics 4) Cont Duoneb nebs qid. 5) CBC,BMP in am 6) wean sedation. 7) OG tube with feeds 8) Prednisone 20 mg daily
[2018-09-25] MEDS ORDERED: Metoprolol Inj 5 MG/5 ML Vial IV.PUSH PRN (16:58)
[2018-09-25] MEDS ORDERED: Glycopyrrolate Inj 1 MG/5 ML Vial IV.PUSH ONE (17:00)
[2018-09-26] MEDS: Oral Hygiene Kit OROPHARYNG SCH ×3 (00:51→18:12)
[2018-09-26] MEDS: Insulin NovoLOG Aspart Correctional Sugar Inj SQ SCH ×4 (00:51→18:12)
--- NOTE | 2018-09-26 05:36 | XR ---
EXAM DATE: 09/26/2018 5:26 AM EST AGE/SEX: 78 years / Male INDICATIONS: Shortness of breath. CLINICAL DATA: This is the patient's subsequent encounter. Patient reports that signs and symptoms h ave been present for 2 weeks and indicates a pain score of Nonresponsive. MEDICAL/SURGICAL HISTORY: . Chronic obstructive pulmonary disease. Hypertension. Renal failure, acute None. . COMPARISON: [facility] – [place] 1V SINGLE AP, 09/23/2018. . FINDINGS: Single AP view the chest. Endotracheal tube and nasogastric tube no longer seen. Right IJ central abhishek ous catheter remains in place. There has been interval increase in confluent opacity in the right upp er lung and right lower lung. Shifting of the opacity in the left lung has occurred with less periphe ral opacity but persistent central left upper lung zone opacity and persistent left lower lobe consol idation versus atelectasis. CONCLUSION: 1. Endotracheal tube and nasogastric tube no longer seen. 2. Moderate increase in right lung opacity. Shifting of left lung opacity. Findings may represent pu lmonary edema or infection. Electronically signed by: Oli Garcia MD 09/26/2018 5:34 AM EST
[2018-09-26 05:49] LABS: Baso # (Auto) 0.1 th/mm3 (0.0-0.2); Baso % (Auto) 0.3 % (0.0-2.0); Eos % (Auto) 0.1 % (0.0-4.0); Hematocrit 26.3 % (39.0-51.0); Hemoglobin 8.9 gm/dL (13.0-17.0); Lymph # (Auto) 0.6 th/mm3 (1.0-4.8); Lymph % (Auto) 2.1 % (9.0-44.0); Mean Corpuscular HGB Conc 33.9 % (32.0-36.0); Mean Corpuscular Hemoglobin 29.3 pg (27.0-34.0); Mean Corpuscular Volume 86.3 fL (80.0-100.0); Mean Platelet Volume 9.3 fL (7.0-11.0); Mono # (Auto) 1.1 th/mm3 (0.0-0.9); Neut # (Auto) 25.6 th/mm3 (1.8-7.7); Neut % (Auto) 93.5 % (16.0-70.0); Platelet Count 85 th/mm3 (150-450); Red Blood Count 3.05 mil/mm3 (4.50-5.90); Red Cell Distribution Width 18.9 % (11.6-17.2); White Blood Count 27.4 th/mm3 (4.0-11.0)
[2018-09-26 06:21] LABS: Alanine Aminotransferase 84 U/L (12-78); Albumin 3.8 g/dL (3.4-5.0); Alkaline Phosphatase 53 U/L (45-117); Anion Gap 8 meq/L (5-15); Aspartate Aminotransferase 34 U/L (15-37); Blood Urea Nitrogen 65 mg/dL (7-18); Calcium 8.4 mg/dL (8.5-10.1); Carbon Dioxide 30.8 meq/L (21.0-32.0); Chloride 107 meq/L (98-107); Glomerular Filtration Rate 29 mL/min (>89); Glucose,Random 155 mg/dL (74-106); Magnesium 2.3 mg/dL (1.5-2.5); Potassium 3.6 meq/L (3.5-5.1); Sodium 146 meq/L (136-145); Total Protein 5.9 g/dL (6.4-8.2)
--- NOTE | 2018-09-26 07:56 | P.PNCC ---
Subjective Subjective Remarks/Hospital Course: Patient is a 78-year-old male with a past medical history of ? COPD, hypertension, diabetes mellitus, coronary artery disease and gout. He was admitted to inpatient medication psych on 08/17/2018 for suicidal ideation and acute kidney injury. He was found to have a creatinine of 1.64. During his hospital course, the patient was seen by hospitalist service. He had a chest x- ray on 08/19/2018. At that time it showed mild basilar opacity, probably subsegmental atelectasis with trace pleural fluid. Then, he had a CT scan of the chest on 09/07/2018 which showed suspected left hilar mass, mild congestive heart failure with small bilateral pleural effusions, left upper lobe pneumonia and focal atypical appearing infiltrate in the right middle lobe with dependent atelectasis of both lower lobes. He was started on broad-spectrum antibiotics. The patient had a V/Q scan on 09/08/2018 which showed a low probability for pulmonary embolism. Helicat was called for increased O2 requirements and the patient was subsequently transferred to [facility] [place] and Critical Care Medicine was consulted for critical care management. When seen, the patient was on partial nonrebreather mask with a saturation of 100%. Blood pressure 151/70 with a pulse of 89. The patient states that he quit smoking over 20 years ago. He does not use any inhalers or nebulizers at home. He denies any nausea, vomiting or abdominal pain. 09/11 Patient is lying in bed in NAD. Afebrile. 09/12 Patient is lying in bed in NAD. On 4L oxygen. Afebrile. Renal function worse today with Cr: 2.70 from 1.81 09/13 Patient is lying in bed in NAD. Afebrile, Renal function is worsening with Cr: 3.04 from 2.70 09/14 Patient dropped his sats overnight placed on partial rebreather, CXR this morning showed b/l pulm infiltrates. Given Lasix 40mg IV x1. Afebrile. 09/15: Afebrile. Lying in bed in no acute distress. Currently on high flow at 90% nasal cannula. 09/16 Patient is on high flow oxygen 30L with 90% FIO2. Afebrile: 09/17 Patient is on 35L high flow oxyge with 60% FIO2. Awake and alert, Afebrile. 09/18: Patient currently more critical FiO2 requirement has increased overnight currently on 90% FiO2 with high flow oxygen to maintain sat above 90%. Chest x- ray shows severe bilateral upper lobe infiltrates with appearance of pulmonary edema. With Bumex IV push patient has urine output more than 2.5 L, however not achieving adequate and negative balance. BUN 18 today with creatinine of 3.3. Will discontinue IV Bumex and start Bumex infusion at 1 mg/h along with IV albumin. 09/19: Agitated overnight. BUN and creatinine unchanged from yesterday. Started on bumex gtt yesterday. It doesn't appear that his urine output was charted during the day shift yesterday but he made 1200 cc of urine overnight and was - 700 cc for the shift. He is currently on high flow 40 L at 100%. Patient states "I want to get out of bed to a chair today". 09/20: Patient continued to have tachypnea and increased work of breathing throughout the morning yesterday, O2 sats stayed around 88-90% on high flow, still wasn't diuresing adequately with bumex/ albumin. He was intubated and and a RIJ vasc cath was placed, received first HD session yesterday afternoon. 09/21: Resting comfortably, no significant overnight events 09/22: Pulmonary edema continues to improve, tolerated spontaneous breathing trial x 2 hours this morning but had an episode of A fib with RVR and appeared anxious. Oozing continues from RIJ vasc cath, will reinforce with suture/ Gelfoam. 09/23: Currently being dialyzed. I placed a suture around the base of the RIJ vasc cath yesterday with Gelfoam reinforcement, less oozing today as per RN. Will attempt SBT after HD. 09/24: ETT exchanged yesterday due to cuff issue, no other overnight events. Tolerated HD yesterday without issue. 09/25: No overnight events. Tolerated spontaneous breathing trial x 1-2 hours yesterday but had to be placed back on AC due to apneic pauses. Continue to aggressively wean vent today. Currently being dialyzed. 09/26: Extubated yesterday currently hypoxic requiring partial nonrebreather. Chest x-ray today shows worsening pulmonary edema especially on the right side. I will start scheduled Lasix 2 mg IV every 12 hours. Nephrology following, will request hemodialysis today due to fluid overload/worsening pulmonary edema. Objective Vital Signs / I&O: Vital Signs 09/25/18 08:00 09/25/18 08:01 09/25/18 08:30 Temperature Pulse Rate 52 L 52 L 67 Respiratory Rate 15 19 18 Blood Pressure 104/52 L 155/67 H Pulse Oximetry 98 98 98 09/25/18 09:00 09/25/18 09:08 09/25/18 09:09 Temperature Pulse Rate 60 56 L 56 L Respiratory Rate 16 18 18 Blood Pressure 120/56 L 109/53 L 114/56 L Pulse Oximetry 98 98 98 09/25/18 09:10 09/25/18 09:15 09/25/18 09:30 Temperature Pulse Rate 56 L 57 L 56 L Respiratory Rate 18 18 18 Blood Pressure 106/53 L 95/55 L 83/46 L Pulse Oximetry 98 98 99 09/25/18 09:45 09/25/18 10:00 09/25/18 10:15 Temperature Pulse Rate 54 L 49 L 49 L Respiratory Rate 18 18 18 Blood Pressure 87/54 L 90/52 L 100/58 L Pulse Oximetry 99 98 99 09/25/18 10:30 09/25/18 10:45 09/25/18 11:00 Temperature Pulse Rate 48 L 47 L 48 L Respiratory Rate 18 18 18 Blood Pressure 111/54 L 113/56 L 109/58 L Pulse Oximetry 99 99 99 09/25/18 11:15 09/25/18 11:30 09/25/18 11:45 Temperature Pulse Rate 47 L 47 L 47 L Respiratory Rate 18 18 18 Blood Pressure 103/55 L 109/58 L 119/58 L Pulse Oximetry 98 99 99 09/25/18 12:00 09/25/18 12:15 09/25/18 12:30 Temperature Pulse Rate 47 L 66 78 Respiratory Rate 18 8 L 18 Blood Pressure 130/61 155/70 H 161/72 H Pulse Oximetry 99 98 98 09/25/18 13:00 09/25/18 13:31 09/25/18 14:00 Temperature Pulse Rate 84 96 H 109 H Respiratory Rate 16 18 19 Blood Pressure 169/87 H 162/75 H Pulse Oximetry 95 95 09/25/18 14:01 09/25/18 14:16 09/25/18 14:32 Temperature Pulse Rate 110 H 134 H Respiratory Rate 23 26 H Blood Pressure 175/98 H 145/67 H Pulse Oximetry 90 L 87 L 09/25/18 15:00 09/25/18 16:00 09/25/18 16:05 Temperature Pulse Rate 108 H 102 H Respiratory Rate 22 17 Blood Pressure Pulse Oximetry 88 L 97 96 09/25/18 17:00 09/25/18 18:00 09/25/18 19:00 Temperature Pulse Rate 107 H 129 H 132 H Respiratory Rate 22 25 H 28 H Blood Pressure Pulse Oximetry 95 88 L 96 09/25/18 19:12 09/25/18 19:18 09/25/18 19:30 Temperature Pulse Rate 109 H 117 H Respiratory Rate 20 23 Blood Pressure 163/87 H 159/70 H Pulse Oximetry 96 94 L 94 L 09/25/18 20:00 09/25/18 20:31 09/25/18 21:00 Temperature 99.1 F Pulse Rate 123 H 102 H 101 H Respiratory Rate 28 H 21 18 Blood Pressure 147/65 H 147/65 H 154/72 H Pulse Oximetry 95 95 97 09/25/18 21:30 09/25/18 22:00 09/25/18 22:30 Temperature Pulse Rate 102 H 105 H 117 H Respiratory Rate 23 21 24 Blood Pressure 154/75 H 154/68 H 151/65 H Pulse Oximetry 95 93 L 95 09/25/18 23:00 09/25/18 23:30 09/25/18 23:49 Temperature Pulse Rate 97 H 98 H Respiratory Rate 18 23 Blood Pressure 159/69 H 146/67 H Pulse Oximetry 96 94 L 97 09/26/18 00:00 09/26/18 00:30 09/26/18 01:00 Temperature 99.1 F Pulse Rate 99 H 103 H 96 H Respiratory Rate 29 H 22 26 H Blood Pressure 149/68 H 153/71 H 140/67 Pulse Oximetry 92 L 94 L 93 L 09/26/18 01:30 09/26/18 02:00 09/26/18 02:30 Temperature Pulse Rate 111 H 93 H 91 H Respiratory Rate 32 H 29 H 24 Blood Pressure 152/97 H 147/65 H 152/69 H Pulse Oximetry 82 L 94 L 94 L 09/26/18 03:00 09/26/18 03:33 09/26/18 04:00 Temperature 98 F Pulse Rate 91 H 92 H Respiratory Rate 22 25 H Blood Pressure 150/66 H Pulse Oximetry 92 L 95 92 L 09/26/18 04:03 09/26/18 04:30 09/26/18 05:00 Temperature Pulse Rate 88 87 84 Respiratory Rate 24 27 H 26 H Blood Pressure 139/68 149/74 H 143/67 H Pulse Oximetry 94 L 95 94 L 09/26/18 05:30 09/26/18 06:00 09/26/18 06:30 Temperature Pulse Rate 87 89 87 Respiratory Rate 24 21 24 Blood Pressure 163/67 H 141/66 H 145/65 H Pulse Oximetry 93 L 93 L 92 L 09/26/18 07:13 Temperature Pulse Rate Respiratory Rate Blood Pressure Pulse Oximetry 95 Intake & Output 09/25/18 09/26/18 09/26/18 18:59 06:59 18:59 Intake Total 350 / 350 0 / 0 Output Total 1500 / 1500 480 / 480 Balance -1150 / -1150 -480 / -480 Weight 98.6 kg Intake: IV 350 / 350 KCl 20 mEq Premix Inj 20 meq In 100 / 100 100 ml @ 50 mls/hr IV.SIG ONCE ONE Rx#:[id number] fentaNYL 10 mcg/mL Premix Drip 250 / 250 2,500 mcg In 250 ml @ 50 MCG/HR 5 mls/hr IV.SIG TITRATE PRN Rx #:[id number] Oral 0 / 0 Output: Urine Amount (Catheter) 1500 / 1500 480 / 480 Straight 1500 / 1500 480 / 480 Other: # Voids 1 Date of Last Bowel Movement 09/23/18 09/23/18 # Bowel Movements 0 Result Diagrams: 09/26/18 03:20 09/26/18 03:20 Objective Remarks: GENERAL: Patient is extubated currently on 100% nonrebreather. SKIN: Warm and dry. HEAD: NCAT EYES: PERRL NECK: Supple, trachea midline. RIJ vasc cath present with some blood on biopatch CARDIOVASCULAR: Irregular rate and rhythm intermittently tachycardic in 110s. RESPIRATORY: Air entry diminished bilaterally with basilar crackles. Scattered rhonchi. GASTROINTESTINAL: Abdomen soft, non-tender, non-distended. MUSCULOSKELETAL: No cyanosis, 1+ pedal edema NEURO: Patient is alert awake oriented to person place and day. Moving all extremities no focal deficits Assessment and Plan - Assessment and Plan Plan: ASSESSMENT 1. Acute hypoxemic respiratory failure 2. Severe acute pulmonary edema/congestive heart failure 3. Left upper lobe pneumonia per CT chest. 4. Acute kidney failure worsening 5. Agitated delirium 6. Coronary artery disease. 7. Diabetes mellitus. 8. Hypertension. 9. Chronic obstructive pulmonary disease. 10. Elevated BMI. 11. Leukocytosis 12. Transaminitis 13. Acute blood loss anemia 14: Sinus tachycardia with frequent PACs Plan Neuro: Monitor neuro status. On precedex as needed for agitation Continue seroquel BID Pulm: Intubated 09/19 for continued pulmonary edema/ resp distress, extubated yesterday 09/25/2018 Worsening pulmonary edema on chest x-ray today Bronchodilators with albuterol/ipratropium aerosols every 4 hours with albuterol aerosols every 2 hours as needed dyspnea Currently on prednisone, changed to IV on Solu-Medrol 40 mg IVQ8, Symbicort 160/4.5 two puffs b.i.d. Pulm is following-Dr. Garcia Continues to have hemoptysis most likely secondary to pulmonary edema Not a good candidate for BiPAP due to persistent hemoptysis CV: Cardizem 60 mg QID-hold while n.p.o. start metoprolol 2.5 mg IV every 6 hours Monitor HR and BP keep MAP>65mmHg BP borderline during HD, albumin bolus PRN Echo on 08/30/2018 EF of 50% to 55%, concentric LV hypertrophy. PA pressure 32 mmHg. Chest x-ray shows worsening pulmonary edema, start Bumex 2 mg IV every 12 hours I discussed with Dr. Krueger to consider hemodialysis for fluid removal : Monitor renal function, I's and O's, and avoid nephrotoxins. Renal US: No masses, no hydronephrosis Urine output 2000 cc over the past 24 hrs, creat 2.2 Nephrology following (Dr. Krueger), dialysis today ARF likely due to ATN 2nd Vanco tox. Placed on IV Bumex due to evidence of heart failure/pulmonary edema GI: on pantoprazole 40 mg IV daily for GI prophylaxis. NPO until respiratory status improves Monitor LFT's, US liver showed only ascites ID: s/p 1 week treatment for CAP, afebrile, but leukocytosis worsening with increased sputum production and worsening infiltrate on chest x-ray Repeat sputum culture, start on Zosyn, renally dosed 09/12: normal resp zeb. Repeat blood and sputum culture. Chek UA strep pneumonia and legionella urinary antigen negative Heme: Monitor CBC-- Hg stable Monitor RIJ vasc cath for oozing/ bleeding Endo: SSI with aspart insulin to medium scale with Accu-Chek for glycemic control Hold allopurinol until kidney function recovers GI prophylaxis with pantoprazole 40 mg daily DVT prophylaxis with SCD and hold SQH due to hemoptysis OVERALL: This patient remains critically ill extubated yesterday but worsening respiratory status now with increasing pulmonary edema worsening leukocytosis of 27K, increasing sputum production. IV Bumex started requested hemodialysis, start Zosyn panculture. May require endotracheal intubation again CCT 37 MIN
[2018-09-26] MEDS: Metoprolol Inj 5 MG/5 ML Vial IV.PUSH SCH ×3 (09:04→20:15)
[2018-09-26] MEDS: Pantoprazole Inj 40 MG Vial IV.PUSH SCH (09:05)
[2018-09-26] MEDS: dilTIAZem 60 MG Tablet PO SCH ×3 (09:05→20:29)
[2018-09-26] MEDS: Chlorhexidine 0.12% Oral Kit 15 ML UDC OROPHARYNG SCH ×2 (09:05→20:30)
[2018-09-26] MEDS: QUEtiapine 25 MG Tablet PO SCH ×2 (09:05→20:29)
[2018-09-26] MEDS: Sodium Chloride 0.9% 2 ML Flush BID IV.FLUSH SCH ×2 (09:05→20:30)
[2018-09-26] MEDS: Budesonide-Formoterol 160/4.5 MCG 6 GM Inhaler INH SCH ×2 (09:11→22:30)
[2018-09-26 09:57] LABS: Lymphocytes 2 % (9-44); Metamyelocytes 1 % (0-1); Monocytes 6 % (0-8); Myelocytes 1 % (0-0)
[2018-09-26 09:58] LABS: Platelet Morphology Normal (Normal)
[2018-09-26 09:59] LABS: RBC Morphology Normal (Normal)
[2018-09-26] MEDS: Piperacil/Tazo 3.375 GM Premix 50 ML IV.SIG SCH ×2 (10:00→17:00)
--- NOTE | 2018-09-26 12:31 | P.PNNP ---
Subjective Interval history: Patient has increasing urine output on nonrebreather facemask O2 he was extubated yesterday Physical Exam Vital signs: Vital Signs 09/25/18 12:30 09/25/18 13:00 09/25/18 13:31 Temperature Pulse Rate 78 84 96 H Respiratory Rate 18 16 18 Blood Pressure 161/72 H 169/87 H 162/75 H Pulse Oximetry 98 95 95 09/25/18 14:00 09/25/18 14:01 09/25/18 14:16 Temperature Pulse Rate 109 H 110 H Respiratory Rate 19 23 Blood Pressure 175/98 H Pulse Oximetry 90 L 09/25/18 14:32 09/25/18 15:00 09/25/18 16:00 Temperature Pulse Rate 134 H 108 H 102 H Respiratory Rate 26 H 22 17 Blood Pressure 145/67 H Pulse Oximetry 87 L 88 L 97 09/25/18 16:05 09/25/18 17:00 09/25/18 18:00 Temperature Pulse Rate 107 H 129 H Respiratory Rate 22 25 H Blood Pressure Pulse Oximetry 96 95 88 L 09/25/18 19:00 09/25/18 19:12 09/25/18 19:18 Temperature Pulse Rate 132 H 109 H Respiratory Rate 28 H 20 Blood Pressure 163/87 H Pulse Oximetry 96 96 94 L 09/25/18 19:30 09/25/18 20:00 09/25/18 20:31 Temperature 99.1 F Pulse Rate 117 H 123 H 102 H Respiratory Rate 23 28 H 21 Blood Pressure 159/70 H 147/65 H 147/65 H Pulse Oximetry 94 L 95 95 09/25/18 21:00 09/25/18 21:30 09/25/18 22:00 Temperature Pulse Rate 101 H 102 H 105 H Respiratory Rate 18 23 21 Blood Pressure 154/72 H 154/75 H 154/68 H Pulse Oximetry 97 95 93 L 09/25/18 22:30 09/25/18 23:00 09/25/18 23:30 Temperature Pulse Rate 117 H 97 H 98 H Respiratory Rate 24 18 23 Blood Pressure 151/65 H 159/69 H 146/67 H Pulse Oximetry 95 96 94 L 09/25/18 23:49 09/26/18 00:00 09/26/18 00:30 Temperature 99.1 F Pulse Rate 99 H 103 H Respiratory Rate 29 H 22 Blood Pressure 149/68 H 153/71 H Pulse Oximetry 97 92 L 94 L 09/26/18 01:00 09/26/18 01:30 09/26/18 02:00 Temperature Pulse Rate 96 H 111 H 93 H Respiratory Rate 26 H 32 H 29 H Blood Pressure 140/67 152/97 H 147/65 H Pulse Oximetry 93 L 82 L 94 L 09/26/18 02:30 09/26/18 03:00 09/26/18 03:33 Temperature Pulse Rate 91 H 91 H Respiratory Rate 24 22 Blood Pressure 152/69 H 150/66 H Pulse Oximetry 94 L 92 L 95 09/26/18 04:00 09/26/18 04:03 09/26/18 04:30 Temperature 98 F Pulse Rate 92 H 88 87 Respiratory Rate 25 H 24 27 H Blood Pressure 139/68 149/74 H Pulse Oximetry 92 L 94 L 95 09/26/18 05:00 09/26/18 05:30 09/26/18 06:00 Temperature Pulse Rate 84 87 89 Respiratory Rate 26 H 24 21 Blood Pressure 143/67 H 163/67 H 141/66 H Pulse Oximetry 94 L 93 L 93 L 09/26/18 06:30 09/26/18 07:13 09/26/18 08:48 Temperature Pulse Rate 87 78 Respiratory Rate 24 20 Blood Pressure 145/65 H Pulse Oximetry 92 L 95 Intake & Output 09/25/18 09/26/18 09/26/18 18:59 06:59 18:59 Intake Total 350 / 350 0 / 0 Output Total 1500 / 1500 480 / 480 Balance -1150 / -1150 -480 / -480 Weight 98.6 kg Intake: IV 350 / 350 KCl 20 mEq Premix Inj 20 meq In 100 / 100 100 ml @ 50 mls/hr IV.SIG ONCE ONE Rx#:[id number] fentaNYL 10 mcg/mL Premix Drip 250 / 250 2,500 mcg In 250 ml @ 50 MCG/HR 5 mls/hr IV.SIG TITRATE PRN Rx #:[id number] Oral 0 / 0 Output: Urine Amount (Catheter) 1500 / 1500 480 / 480 Straight 1500 / 1500 480 / 480 Other: # Voids 1 Date of Last Bowel Movement 09/23/18 09/23/18 # Bowel Movements 0 Narrative: GENERAL: Well-nourished, Obese patient. SKIN: Warm and dry. HEAD: Normocephalic. EYES: No scleral icterus. No injection or drainage. PERRL NECK: Supple, trachea midline. No JVD or lymphadenopathy. Dressing on the right side of neck CARDIOVASCULAR: S1-S2 irregular. RESPIRATORY: Breath sounds equal bilaterally. Crackles at bases. Occ Wheeze. GASTROINTESTINAL: Abdomen soft, non-tender, nondistended. EXTREMITIES: 1+ edema of legs NEUROLOGICAL: Awake and alert. - Urinary Catheter Management Indwelling Urethral Catheter Cath placed during this visit: yes, but has since been removed by the nurse Reason for continuing: Hourly intake/output Insertion date: 09/18/18 Insertion time: 09:00 Removal date: 09/23/18 Removal time: 17:00 Straight Cath placed during this visit: no Assessment and Plan - Assessment (1) Acute renal failure Code(s): N17.9 - Acute kidney failure, unspecified Status: Acute (2) COPD (chronic obstructive pulmonary disease) Code(s): J44.9 - Chronic obstructive pulmonary disease, unspecified Status: Acute (3) Pneumonia Code(s): J18.9 - Pneumonia, unspecified organism Status: Acute (4) Mood disorder due to known physiological condition with depressive features Code(s): F06.31 - Mood disorder due to known physiological condition with depressive features Status: Acute (5) Gout Code(s): M10.9 - Gout, unspecified Status: Acute (6) Hypertension Code(s): I10 - Essential (primary) hypertension Status: Acute - Plan Patient has acute tubular necrosis likely due to vancomycin levels are high Creatinine 2.7 -> 3 -> 3.2 -> 3.3-3.3-3.29-3.30-3.15-3.16-2.78-3.2-3.5 -2.62-- 2.87-2.2 Patient had dialysis yesterday and about 3 L taken off He responded to Bumex over 600 cc of urine He is on Bumex 2 mg every 12 hourly I will give Diuril 500 mg IV today Patient creatinine declined in he has declining edema Good response to diuretics I will hold on dialysis until tomorrow Monitor BMP, Monitor intake and output Ongoing peripheral edema Continue to monitor. Continue to monitor next dialysis is tomorrow
--- NOTE | 2018-09-26 13:46 | P.PN ---
Subjective Interval history: He was extubated and now on a NRB Mask. Alert and talking Was dialyzed with removal of 3 L . Overall better. Physical Exam Vital signs: Vital Signs 09/25/18 14:00 09/25/18 14:01 09/25/18 14:16 Temperature Pulse Rate 109 H 110 H Respiratory Rate 19 23 Blood Pressure 175/98 H Pulse Oximetry 90 L 09/25/18 14:32 09/25/18 15:00 09/25/18 16:00 Temperature Pulse Rate 134 H 108 H 102 H Respiratory Rate 26 H 22 17 Blood Pressure 145/67 H Pulse Oximetry 87 L 88 L 97 09/25/18 16:05 09/25/18 17:00 09/25/18 18:00 Temperature Pulse Rate 107 H 129 H Respiratory Rate 22 25 H Blood Pressure Pulse Oximetry 96 95 88 L 09/25/18 19:00 09/25/18 19:12 09/25/18 19:18 Temperature Pulse Rate 132 H 109 H Respiratory Rate 28 H 20 Blood Pressure 163/87 H Pulse Oximetry 96 96 94 L 09/25/18 19:30 09/25/18 20:00 09/25/18 20:31 Temperature 99.1 F Pulse Rate 117 H 123 H 102 H Respiratory Rate 23 28 H 21 Blood Pressure 159/70 H 147/65 H 147/65 H Pulse Oximetry 94 L 95 95 09/25/18 21:00 09/25/18 21:30 09/25/18 22:00 Temperature Pulse Rate 101 H 102 H 105 H Respiratory Rate 18 23 21 Blood Pressure 154/72 H 154/75 H 154/68 H Pulse Oximetry 97 95 93 L 09/25/18 22:30 09/25/18 23:00 09/25/18 23:30 Temperature Pulse Rate 117 H 97 H 98 H Respiratory Rate 24 18 23 Blood Pressure 151/65 H 159/69 H 146/67 H Pulse Oximetry 95 96 94 L 09/25/18 23:49 09/26/18 00:00 09/26/18 00:30 Temperature 99.1 F Pulse Rate 99 H 103 H Respiratory Rate 29 H 22 Blood Pressure 149/68 H 153/71 H Pulse Oximetry 97 92 L 94 L 09/26/18 01:00 09/26/18 01:30 09/26/18 02:00 Temperature Pulse Rate 96 H 111 H 93 H Respiratory Rate 26 H 32 H 29 H Blood Pressure 140/67 152/97 H 147/65 H Pulse Oximetry 93 L 82 L 94 L 09/26/18 02:30 09/26/18 03:00 09/26/18 03:33 Temperature Pulse Rate 91 H 91 H Respiratory Rate 24 22 Blood Pressure 152/69 H 150/66 H Pulse Oximetry 94 L 92 L 95 09/26/18 04:00 09/26/18 04:03 09/26/18 04:30 Temperature 98 F Pulse Rate 92 H 88 87 Respiratory Rate 25 H 24 27 H Blood Pressure 139/68 149/74 H Pulse Oximetry 92 L 94 L 95 09/26/18 05:00 09/26/18 05:30 09/26/18 06:00 Temperature Pulse Rate 84 87 89 Respiratory Rate 26 H 24 21 Blood Pressure 143/67 H 163/67 H 141/66 H Pulse Oximetry 94 L 93 L 93 L 09/26/18 06:30 09/26/18 07:13 09/26/18 08:48 Temperature Pulse Rate 87 78 Respiratory Rate 24 20 Blood Pressure 145/65 H Pulse Oximetry 92 L 95 Intake & Output 09/25/18 09/26/18 09/26/18 18:59 06:59 18:59 Intake Total 350 / 350 0 / 0 Output Total 1500 / 1500 480 / 480 Balance -1150 / -1150 -480 / -480 Weight 98.6 kg Intake: IV 350 / 350 KCl 20 mEq Premix Inj 20 meq In 100 / 100 100 ml @ 50 mls/hr IV.SIG ONCE ONE Rx#:[id number] fentaNYL 10 mcg/mL Premix Drip 250 / 250 2,500 mcg In 250 ml @ 50 MCG/HR 5 mls/hr IV.SIG TITRATE PRN Rx #:[id number] Oral 0 / 0 Output: Urine Amount (Catheter) 1500 / 1500 480 / 480 Straight 1500 / 1500 480 / 480 Other: # Voids 1 Date of Last Bowel Movement 09/23/18 09/23/18 # Bowel Movements 0 Narrative: GENERAL: Well-nourished, Obese patient.No distress SKIN: Warm and dry. HEAD: Normocephalic. EYES: No scleral icterus. No injection or drainage. NECK: Supple, trachea midline. No JVD or lymphadenopathy. Dressing on the right side of neck CARDIOVASCULAR: S1-S2 irregular. RESPIRATORY: Breath sounds equal bilaterally. Crackles at bases and Wheeze. GASTROINTESTINAL: Abdomen soft, non-tender, nondistended. EXTREMITIES: 1+ edema of legs NEUROLOGICAL: alert and talking. - Urinary Catheter Management Indwelling Urethral Catheter Cath placed during this visit: yes, but has since been removed by the nurse Reason for continuing: Hourly intake/output Insertion date: 09/18/18 Insertion time: 09:00 Removal date: 09/23/18 Removal time: 17:00 Straight Cath placed during this visit: no Results - Labs CBC & Chem 7: 09/26/18 03:20 09/26/18 03:20 Laboratory Results - last 24 hr 09/25/18 09/26/18 09/26/18 17:21 00:19 03:20 WBC 27.4 H RBC 3.05 L Hgb 8.9 L Hct 26.3 L MCV 86.3 MCH 29.3 MCHC 33.9 RDW 18.9 H Plt Count 85 L MPV 9.3 Prelim Diff (Auto) Slide review pending Neut % (Auto) 93.5 H Lymph % (Auto) 2.1 L Ponce % (Auto) 4.0 Eos % (Auto) 0.1 Baso % (Auto) 0.3 Neut # (Auto) 25.6 H Lymph # (Auto) 0.6 L Ponce # (Auto) 1.1 H Eos # (Auto) 0.0 Baso # (Auto) 0.1 WBC Differential Manual diff final Seg Neuts % (Manual) 90 H Lymphocytes % (Manual) 2 L Monocytes % (Manual) 6 Metamyelocytes % (Man) 1 Myelocytes % (Man) 1 H Abs Neuts (Manual) 25.2 H Differential Comment . Platelet Estimate Low L Platelet Morphology Normal RBC Morphology Normal Sodium Potassium Chloride Carbon Dioxide Anion Gap BUN Creatinine Estimated GFR POC Glucose 227 H 176 H Random Glucose Calcium Magnesium Total Bilirubin AST ALT Alkaline Phosphatase Total Protein Albumin 09/26/18 09/26/18 03:20 06:34 WBC RBC Hgb Hct MCV MCH MCHC RDW Plt Count MPV Prelim Diff (Auto) Neut % (Auto) Lymph % (Auto) Ponce % (Auto) Eos % (Auto) Baso % (Auto) Neut # (Auto) Lymph # (Auto) Ponce # (Auto) Eos # (Auto) Baso # (Auto) WBC Differential Seg Neuts % (Manual) Lymphocytes % (Manual) Monocytes % (Manual) Metamyelocytes % (Man) Myelocytes % (Man) Abs Neuts (Manual) Differential Comment Platelet Estimate Platelet Morphology RBC Morphology Sodium 146 H Potassium 3.6 Chloride 107 Carbon Dioxide 30.8 Anion Gap 8 BUN 65 H Creatinine 2.20 H Estimated GFR 29 L POC Glucose 164 H Random Glucose 155 H Calcium 8.4 L Magnesium 2.3 Total Bilirubin 1.5 H AST 34 ALT 84 H Alkaline Phosphatase 53 Total Protein 5.9 L D Albumin 3.8 D - Imaging Impressions Chest X-Ray 09/26/18 00:00 CONCLUSION: 1. Endotracheal tube and nasogastric tube no longer seen. 2. Moderate increase in right lung opacity. Shifting of left lung opacity. Findings may represent pulmonary edema or infection. 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 Acute hypoxemic respiratory failure 2. Left upper lobe pneumonia 3. B/l pulm infiltrates 4. Acute kidney injury. 5. Anemia. 6. Coronary artery disease. 7. Diabetes mellitus. 8. Hypertension. 9. Chronic obstructive pulmonary disease. 10. Obesity. Plan Pulm: 1) Continue with NRB mask and wean to N/C at 5L. 2) Dialysis today 3) Cont Antibiotics 4) Cont Duoneb nebs qid. 5) CBC,BMP in am 6) Use BIPAP at HS 12/5 CM FIO2 40% 7) PO diet after swallow test 8) Solumedrol 40 MG BID
[2018-09-26] MEDS: Chlorothiazide Inj 500 MG Vial IV.PUSH SCH (14:00)
[2018-09-26] MEDS ORDERED: MethylPREDNISolone Sod Succinate Inj 40 MG/ML Vial IV.PUSH SCH (14:00)
[2018-09-26] MEDS: MethylPREDNISolone Sod Succinate Inj 40 MG/ML Vial IV.PUSH SCH (20:29)
[2018-09-26 21:11] LABS: Amorphous Sediment,Urine Rare /hpf; Bilirubin,Urine Negative (Negative); Clarity,Urine Clear (Clear); Color,Urine Yellow (Yellw/Straw); Glucose,Urine (UA) Negative (Negative); Hyaline Casts,Urine 6 /lpf (0-3); Leukocyte Esterase,Urine Negative (Negative); Mucus,Urine Few /lpf (Occasional); Nitrite,Urine Negative (Negative); Specific Gravity,Urine 1.008 (1.002-1.035)
[2018-09-27] MEDS: Oral Hygiene Kit OROPHARYNG SCH ×5 (00:06→23:54)
[2018-09-27] MEDS: Insulin NovoLOG Aspart Correctional Sugar Inj SQ SCH ×5 (01:03→23:54)
[2018-09-27] MEDS: Metoprolol Inj 5 MG/5 ML Vial IV.PUSH SCH ×4 (02:01→20:48)
[2018-09-27] MEDS: Piperacil/Tazo 3.375 GM Premix 50 ML IV.SIG SCH ×3 (02:02→17:30)
[2018-09-27 04:25] LABS: Hematocrit 23.4 % (39.0-51.0); Mean Corpuscular Hemoglobin 29.5 pg (27.0-34.0); Mean Corpuscular Volume 86.6 fL (80.0-100.0); Mean Platelet Volume 9.1 fL (7.0-11.0); Platelet Count 63 th/mm3 (150-450); Red Blood Count 2.71 mil/mm3 (4.50-5.90); Red Cell Distribution Width 18.5 % (11.6-17.2); White Blood Count 19.2 th/mm3 (4.0-11.0)
[2018-09-27 04:48] LABS: Albumin 3.2 g/dL (3.4-5.0); Anion Gap 10 meq/L (5-15); Aspartate Aminotransferase 27 U/L (15-37); Blood Urea Nitrogen 69 mg/dL (7-18); Calcium 8.3 mg/dL (8.5-10.1); Carbon Dioxide 32.8 meq/L (21.0-32.0); Chloride 105 meq/L (98-107); Glomerular Filtration Rate 28 mL/min (>89); Glucose,Random 233 mg/dL (74-106); Potassium 3.5 meq/L (3.5-5.1); Sodium 148 meq/L (136-145)
[2018-09-27 04:49] LABS: Alanine Aminotransferase 64 U/L (12-78)
[2018-09-27 04:51] LABS: Alkaline Phosphatase 52 U/L (45-117); Total Protein 5.4 g/dL (6.4-8.2)
--- NOTE | 2018-09-27 04:53 | XR ---
EXAM DATE: 09/27/2018 4:37 AM EST AGE/SEX: 78 years / Male INDICATIONS: Shortness of breath, possible respiratory disease. CLINICAL DATA: This is the patient's subsequent encounter. Patient reports that signs and symptoms h ave been present for 2 weeks and indicates a pain score of Nonresponsive. MEDICAL/SURGICAL HISTORY: . Chronic obstructive pulmonary disease. Hypertension. Renal failure, acute None. COMPARISON: [facility] – [place], CHEST 1V SINGLE AP, 09/26/2018. . FINDINGS: Right central line in superior vena cava. Bilateral airspace consolidation is stable to slightly wors e compared with September 26. Bilateral effusions remain. No pneumothorax. CONCLUSION: Bilateral airspace disease, stable to slightly worse compared with September 26 with small bilateral p leural effusions. Electronically signed by: Daniel Parada MD 09/27/2018 4:51 AM EST
[2018-09-27] MEDS: Albumin Human 25% Inj 100 ML IV.SIG PRN ×2 (08:38→08:48)
--- NOTE | 2018-09-27 10:56 | P.PNCC ---
Subjective Subjective Remarks/Hospital Course: Patient is a 78-year-old male with a past medical history of ? COPD, hypertension, diabetes mellitus, coronary artery disease and gout. He was admitted to inpatient medication psych on 08/17/2018 for suicidal ideation and acute kidney injury. He was found to have a creatinine of 1.64. During his hospital course, the patient was seen by hospitalist service. He had a chest x- ray on 08/19/2018. At that time it showed mild basilar opacity, probably subsegmental atelectasis with trace pleural fluid. Then, he had a CT scan of the chest on 09/07/2018 which showed suspected left hilar mass, mild congestive heart failure with small bilateral pleural effusions, left upper lobe pneumonia and focal atypical appearing infiltrate in the right middle lobe with dependent atelectasis of both lower lobes. He was started on broad-spectrum antibiotics. The patient had a V/Q scan on 09/08/2018 which showed a low probability for pulmonary embolism. Helicat was called for increased O2 requirements and the patient was subsequently transferred to [facility] – [place], [place] and Critical Care Medicine was consulted for critical care management. When seen, the patient was on partial nonrebreather mask with a saturation of 100%. Blood pressure 151/70 with a pulse of 89. The patient states that he quit smoking over 20 years ago. He does not use any inhalers or nebulizers at home. He denies any nausea, vomiting or abdominal pain. 09/11 Patient is lying in bed in NAD. Afebrile. 09/12 Patient is lying in bed in NAD. On 4L oxygen. Afebrile. Renal function worse today with Cr: 2.70 from 1.81 09/13 Patient is lying in bed in NAD. Afebrile, Renal function is worsening with Cr: 3.04 from 2.70 09/14 Patient dropped his sats overnight placed on partial rebreather, CXR this morning showed b/l pulm infiltrates. Given Lasix 40mg IV x1. Afebrile. 09/15: Afebrile. Lying in bed in no acute distress. Currently on high flow at 90% nasal cannula. 09/16 Patient is on high flow oxygen 30L with 90% FIO2. Afebrile: 09/17 Patient is on 35L high flow oxyge with 60% FIO2. Awake and alert, Afebrile. 09/18: Patient currently more critical FiO2 requirement has increased overnight currently on 90% FiO2 with high flow oxygen to maintain sat above 90%. Chest x- ray shows severe bilateral upper lobe infiltrates with appearance of pulmonary edema. With Bumex IV push patient has urine output more than 2.5 L, however not achieving adequate and negative balance. BUN 18 today with creatinine of 3.3. Will discontinue IV Bumex and start Bumex infusion at 1 mg/h along with IV albumin. 09/19: Agitated overnight. BUN and creatinine unchanged from yesterday. Started on bumex gtt yesterday. It doesn't appear that his urine output was charted during the day shift yesterday but he made 1200 cc of urine overnight and was - 700 cc for the shift. He is currently on high flow 40 L at 100%. Patient states "I want to get out of bed to a chair today". 09/20: Patient continued to have tachypnea and increased work of breathing throughout the morning yesterday, O2 sats stayed around 88-90% on high flow, still wasn't diuresing adequately with bumex/ albumin. He was intubated and and a RIJ vasc cath was placed, received first HD session yesterday afternoon. 09/21: Resting comfortably, no significant overnight events 09/22: Pulmonary edema continues to improve, tolerated spontaneous breathing trial x 2 hours this morning but had an episode of A fib with RVR and appeared anxious. Oozing continues from RIJ vasc cath, will reinforce with suture/ Gelfoam. 09/23: Currently being dialyzed. I placed a suture around the base of the RIJ vasc cath yesterday with Gelfoam reinforcement, less oozing today as per RN. Will attempt SBT after HD. 09/24: ETT exchanged yesterday due to cuff issue, no other overnight events. Tolerated HD yesterday without issue. 09/25: No overnight events. Tolerated spontaneous breathing trial x 1-2 hours yesterday but had to be placed back on AC due to apneic pauses. Continue to aggressively wean vent today. Currently being dialyzed. 09/26: Extubated yesterday currently hypoxic requiring partial nonrebreather. Chest x-ray today shows worsening pulmonary edema especially on the right side. I will start scheduled Lasix 2 mg IV every 12 hours. Nephrology following, will request hemodialysis today due to fluid overload/worsening pulmonary edema. 09/27: Patient remains on nonrebreather, does not tolerate BiPAP. Took a turn for the worse more critical now. When patient removed his partial nonrebreather his oxygen saturation decreased to 60%. Was immediately replaced currently saturating 88%. Chest x-ray shows extensive worsening bilateral pulmonary edema. Discussed with nephrology emergency hemodialysis with fluid removal and repeat chest x-ray. If clinically and radiologically not improving patient will need to be placed on mechanical ventilatory support. Despite achieving negative balance has bilateral infiltrate indicating possibility of ARDS Objective Vital Signs / I&O: Vital Signs 09/26/18 11:00 09/26/18 11:40 09/26/18 12:00 Temperature Pulse Rate 85 84 84 Respiratory Rate 24 21 27 H Blood Pressure 161/74 H 178/79 H 154/101 H Pulse Oximetry 91 L 09/26/18 12:09 09/26/18 12:30 09/26/18 13:00 Temperature Pulse Rate 82 82 82 Respiratory Rate 27 H 22 23 Blood Pressure 165/88 H 174/76 H 166/74 H Pulse Oximetry 94 L 93 L 09/26/18 13:30 09/26/18 14:00 09/26/18 14:01 Temperature Pulse Rate 87 83 83 Respiratory Rate 25 H 26 H 22 Blood Pressure 159/72 H 169/76 H Pulse Oximetry 89 L 94 L 95 09/26/18 14:30 09/26/18 15:00 09/26/18 15:12 Temperature Pulse Rate 84 87 108 H Respiratory Rate 26 H 30 H 24 Blood Pressure 166/76 H 159/70 H Pulse Oximetry 93 L 90 L 09/26/18 15:30 09/26/18 16:00 09/26/18 16:30 Temperature Pulse Rate 87 81 81 Respiratory Rate 24 25 H 25 H Blood Pressure 166/70 H 169/75 H 156/70 H Pulse Oximetry 90 L 90 L 93 L 09/26/18 17:00 09/26/18 17:30 09/26/18 18:00 Temperature Pulse Rate 83 82 80 Respiratory Rate 34 H 23 25 H Blood Pressure 163/72 H 160/72 H 170/74 H Pulse Oximetry 93 L 93 L 98 09/26/18 18:31 09/26/18 19:00 09/26/18 19:31 Temperature Pulse Rate 82 80 86 Respiratory Rate 26 H 23 26 H Blood Pressure 163/73 H 168/76 H 175/79 H Pulse Oximetry 97 98 82 L 09/26/18 19:59 09/26/18 20:00 09/26/18 20:31 Temperature Pulse Rate 84 84 Respiratory Rate 26 H 26 H Blood Pressure 173/77 H 169/74 H Pulse Oximetry 93 L 94 L 93 L 09/26/18 21:00 09/26/18 21:30 09/26/18 22:00 Temperature Pulse Rate 76 68 73 Respiratory Rate 23 23 22 Blood Pressure 137/64 124/60 140/65 Pulse Oximetry 94 L 90 L 92 L 09/26/18 22:30 09/26/18 23:00 09/26/18 23:15 Temperature Pulse Rate 69 73 87 Respiratory Rate 21 21 23 Blood Pressure 139/64 148/69 H Pulse Oximetry 92 L 91 L 09/26/18 23:17 09/26/18 23:30 09/27/18 00:00 Temperature 98.7 F Pulse Rate 83 80 Respiratory Rate 21 23 Blood Pressure 154/70 H 153/68 H Pulse Oximetry 94 L 90 L 89 L 09/27/18 00:01 09/27/18 00:20 09/27/18 00:30 Temperature Pulse Rate 88 81 Respiratory Rate 27 H 26 H Blood Pressure 153/68 H 166/72 H Pulse Oximetry 89 L 92 L 95 09/27/18 01:00 09/27/18 01:30 09/27/18 02:00 Temperature Pulse Rate 82 83 90 Respiratory Rate 27 H 29 H 26 H Blood Pressure 157/74 H 161/77 H 175/66 H Pulse Oximetry 96 97 97 09/27/18 02:31 09/27/18 03:00 09/27/18 03:30 Temperature Pulse Rate 86 74 74 Respiratory Rate 23 20 18 Blood Pressure 154/71 H 135/64 135/63 Pulse Oximetry 90 L 89 L 89 L 09/27/18 04:00 09/27/18 04:30 09/27/18 05:00 Temperature Pulse Rate 74 73 72 Respiratory Rate 17 18 17 Blood Pressure 121/60 133/63 139/63 Pulse Oximetry 92 L 93 L 93 L 09/27/18 05:30 09/27/18 06:00 09/27/18 06:30 Temperature Pulse Rate 73 72 72 Respiratory Rate 18 17 16 Blood Pressure 139/65 143/61 H 142/65 H Pulse Oximetry 91 L 92 L 92 L 09/27/18 07:00 09/27/18 07:29 09/27/18 07:30 Temperature Pulse Rate 106 H 82 80 Respiratory Rate 28 H 22 24 Blood Pressure 154/113 H 189/74 H Pulse Oximetry 88 L 92 L 09/27/18 08:00 09/27/18 08:01 09/27/18 08:30 Temperature Pulse Rate 87 87 90 Respiratory Rate 23 22 22 Blood Pressure 159/74 H 149/83 H Pulse Oximetry 96 95 95 09/27/18 08:45 09/27/18 09:00 09/27/18 09:16 Temperature Pulse Rate 86 88 81 Respiratory Rate 22 33 H 23 Blood Pressure 142/65 H 117/56 L 153/68 H Pulse Oximetry 95 92 L 94 L 09/27/18 09:30 09/27/18 09:45 Temperature Pulse Rate 78 82 Respiratory Rate 22 25 H Blood Pressure 156/70 H 162/74 H Pulse Oximetry 94 L 95 Intake & Output 09/26/18 09/27/18 09/27/18 18:59 06:59 18:59 Intake Total 100 / 100 163 / 163 200 / 200 Output Total 1600 / 1600 925 / 925 Balance -1500 / -1500 -762 / -762 200 / 200 Weight 98.6 kg Intake: IV 100 / 100 50 / 50 200 / 200 Flexbumin 25% Inj 100 ML @ 60 200 / 200 mls/hr IV.SIG WITH DIALYSIS PRN Rx#:[id number] Zosyn 3.375 GM Premix 50 ML @ 100 / 100 50 / 50 100 mls/hr IV.SIG Q8H ZEKE Rx#: [id number] Oral 113 / 113 Output: Urine 925 / 925 Urine Amount (Catheter) 1600 / 1600 Straight 1600 / 1600 Other: # Incontinent Voids 1 Date of Last Bowel Movement 09/23/18 09/26/18 09/26/18 # Incontinent Bowel Movements 2 Result Diagrams: 09/27/18 03:52 09/27/18 03:52 Objective Remarks: GENERAL: Patient is currently on 100% nonrebreather. SKIN: Warm and dry. HEAD: NCAT EYES: PERRL NECK: Supple, trachea midline. RIJ vasc cath present with some blood on biopatch CARDIOVASCULAR: Irregular rate and rhythm intermittently tachycardic in 110s. RESPIRATORY: Air entry diminished bilaterally with diffuse crackles bilaterally. Scattered rhonchi. GASTROINTESTINAL: Abdomen soft, non-tender, non-distended. MUSCULOSKELETAL: No cyanosis, 1+ pedal edema NEURO: Patient is alert awake oriented to person place and day. Moving all extremities no focal deficits Assessment and Plan - Assessment and Plan Plan: ASSESSMENT 1. Acute hypoxemic respiratory failure 2. Severe acute pulmonary edema/congestive heart failure 3. ARDS 4. Left upper lobe pneumonia per CT chest. 5. Acute kidney failure worsening 6. Agitated delirium 7. Coronary artery disease. 8. Diabetes mellitus. 9. Hypertension. 10. Chronic obstructive pulmonary disease. 11. Leukocytosis 12. Transaminitis 13. Acute blood loss anemia 14: Sinus tachycardia with frequent PACs Plan Neuro: Monitor neuro status. On precedex as needed for agitation Continue seroquel BID Pulm: Intubated 09/19 for continued pulmonary edema/ resp distress, extubated 09/25/2018 Worsening pulmonary edema on chest x-ray today, not tolerating BiPAP Despite negative fluid balance patient continues to have bilateral infiltrates indicating possible ARDS Bronchodilators with albuterol/ipratropium aerosols every 4 hours with albuterol aerosols every 2 hours as needed dyspnea IV on Solu-Medrol 40 mg IVQ8, Symbicort 160/4.5 two puffs b.i.d. Pulm is following-Dr. Garcia Continues to have hemoptysis most likely secondary to pulmonary edema Not a good candidate for BiPAP due to persistent hemoptysis, and agitation CV: Cardizem 60 mg QID-hold while n.p.o. continue metoprolol 2.5 mg IV every 6 hours Monitor HR and BP keep MAP>65mmHg BP borderline during HD, albumin bolus PRN Echo on 08/30/2018 EF of 50% to 55%, concentric LV hypertrophy. PA pressure 32 mmHg. Chest x-ray shows worsening pulmonary edema, continue Bumex 2 mg IV every 12 hours I discussed with Dr. Krueger regarding emergent hemodialysis for fluid removal : Monitor renal function, I's and O's, and avoid nephrotoxins. Renal US: No masses, no hydronephrosis Urine output 1600 cc over the past 24 hrs, creat 2.2 Nephrology following (Dr. Krueger), dialysis today ARF likely due to ATN 2nd Vanco tox. Placed on IV Bumex due to evidence of heart failure/pulmonary edema, could be ARDS GI: on pantoprazole 40 mg IV daily for GI prophylaxis. NPO until respiratory status improves Monitor LFT's, US liver showed only ascites ID: s/p 1 week treatment for CAP, afebrile, but persistent leukocytosis worsening with increased infiltrate on chest x-ray Repeat sputum culture, started on Zosyn, renally dosed 09/12: normal resp zeb. Repeat blood and sputum culture. Check UA strep pneumonia and legionella urinary antigen negative Heme: Monitor CBC-- Hg stable Monitor RIJ vasc cath for oozing/ bleeding Endo: SSI with aspart insulin to medium scale with Accu-Chek for glycemic control Hold allopurinol until kidney function recovers GI prophylaxis with pantoprazole 40 mg daily DVT prophylaxis with SCD and hold SQH due to hemoptysis OVERALL: This patient remains critically ill extubated 09/25 but worsening respiratory status now with increasing pulmonary edema worsening leukocytosis of increasing sputum production. IV Bumex started requested hemodialysis, Zosyn panculture. Emergent hemodialysis with fluid removal and repeat chest x- ray and ABG. If not clinically and radiologically improving will proceed with endotracheal intubation CCT 38 MIN
[2018-09-27] MEDS: Chlorothiazide Inj 500 MG Vial IV.PUSH SCH (12:00)
[2018-09-27] MEDS: Sodium Chloride 0.9% 2 ML Flush BID IV.FLUSH SCH ×2 (12:35→20:50)
[2018-09-27] MEDS: Pantoprazole Inj 40 MG Vial IV.PUSH SCH (12:35)
[2018-09-27] MEDS: MethylPREDNISolone Sod Succinate Inj 40 MG/ML Vial IV.PUSH SCH (12:35)
[2018-09-27] MEDS: QUEtiapine 25 MG Tablet PO SCH ×2 (12:35→20:48)
[2018-09-27] MEDS: Budesonide-Formoterol 160/4.5 MCG 6 GM Inhaler INH SCH ×2 (12:35→20:50)
[2018-09-27] MEDS: dilTIAZem 60 MG Tablet PO SCH ×4 (12:36→20:48)
[2018-09-27] MEDS: Chlorhexidine 0.12% Oral Kit 15 ML UDC OROPHARYNG SCH ×2 (12:36→20:49)
[2018-09-27 12:38] LABS: ABG Base Excess 6.8 mmol/L (-2-2); ABG PCO2 43 mmHg (38-42); ABG PO2 156 mmHG (61-120)
--- NOTE | 2018-09-27 13:11 | P.PNNP ---
Subjective Interval history: Patient is short of breath, he did receive diuretic however he remains short of breath fluid overload, COPD, coughing and not a wheezes, he has atrial fibrillation as well, dialysis was carried out earlier Physical Exam Vital signs: Vital Signs 09/26/18 13:30 09/26/18 14:00 09/26/18 14:01 Temperature Pulse Rate 87 83 83 Respiratory Rate 25 H 26 H 22 Blood Pressure 159/72 H 169/76 H Pulse Oximetry 89 L 94 L 95 09/26/18 14:30 09/26/18 15:00 09/26/18 15:12 Temperature Pulse Rate 84 87 108 H Respiratory Rate 26 H 30 H 24 Blood Pressure 166/76 H 159/70 H Pulse Oximetry 93 L 90 L 09/26/18 15:30 09/26/18 16:00 09/26/18 16:30 Temperature Pulse Rate 87 81 81 Respiratory Rate 24 25 H 25 H Blood Pressure 166/70 H 169/75 H 156/70 H Pulse Oximetry 90 L 90 L 93 L 09/26/18 17:00 09/26/18 17:30 09/26/18 18:00 Temperature Pulse Rate 83 82 80 Respiratory Rate 34 H 23 25 H Blood Pressure 163/72 H 160/72 H 170/74 H Pulse Oximetry 93 L 93 L 98 09/26/18 18:31 09/26/18 19:00 09/26/18 19:31 Temperature Pulse Rate 82 80 86 Respiratory Rate 26 H 23 26 H Blood Pressure 163/73 H 168/76 H 175/79 H Pulse Oximetry 97 98 82 L 09/26/18 19:59 09/26/18 20:00 09/26/18 20:31 Temperature Pulse Rate 84 84 Respiratory Rate 26 H 26 H Blood Pressure 173/77 H 169/74 H Pulse Oximetry 93 L 94 L 93 L 09/26/18 21:00 09/26/18 21:30 09/26/18 22:00 Temperature Pulse Rate 76 68 73 Respiratory Rate 23 22 Blood Pressure 137/64 124/60 140/65 Pulse Oximetry 94 L 90 L 92 L 09/26/18 22:30 09/26/18 23:00 09/26/18 23:15 Temperature Pulse Rate 69 73 87 Respiratory Rate 21 21 23 Blood Pressure 139/64 148/69 H Pulse Oximetry 92 L 91 L 09/26/18 23:17 09/26/18 23:30 09/27/18 00:00 Temperature 98.7 F Pulse Rate 83 80 Respiratory Rate 21 23 Blood Pressure 154/70 H 153/68 H Pulse Oximetry 94 L 90 L 89 L 09/27/18 00:01 09/27/18 00:20 09/27/18 00:30 Temperature Pulse Rate 88 81 Respiratory Rate 27 H 26 H Blood Pressure 153/68 H 166/72 H Pulse Oximetry 89 L 92 L 95 09/27/18 01:00 09/27/18 01:30 09/27/18 02:00 Temperature Pulse Rate 82 83 90 Respiratory Rate 27 H 29 H 26 H Blood Pressure 157/74 H 161/77 H 175/66 H Pulse Oximetry 96 97 97 09/27/18 02:31 09/27/18 03:00 09/27/18 03:30 Temperature Pulse Rate 86 74 74 Respiratory Rate 23 20 18 Blood Pressure 154/71 H 135/64 135/63 Pulse Oximetry 90 L 89 L 89 L 09/27/18 04:00 09/27/18 04:30 09/27/18 05:00 Temperature Pulse Rate 74 73 72 Respiratory Rate 17 18 17 Blood Pressure 121/60 133/63 139/63 Pulse Oximetry 92 L 93 L 93 L 09/27/18 05:30 09/27/18 06:00 09/27/18 06:30 Temperature Pulse Rate 73 72 72 Respiratory Rate 18 17 16 Blood Pressure 139/65 143/61 H 142/65 H Pulse Oximetry 91 L 92 L 92 L 09/27/18 07:00 09/27/18 07:29 09/27/18 07:30 Temperature Pulse Rate 106 H 82 80 Respiratory Rate 28 H 22 24 Blood Pressure 154/113 H 189/74 H Pulse Oximetry 88 L 92 L 09/27/18 08:00 09/27/18 08:01 09/27/18 08:30 Temperature Pulse Rate 87 87 90 Respiratory Rate 23 22 22 Blood Pressure 159/74 H 149/83 H Pulse Oximetry 96 95 95 09/27/18 08:45 09/27/18 09:00 09/27/18 09:16 Temperature Pulse Rate 86 88 81 Respiratory Rate 22 33 H 23 Blood Pressure 142/65 H 117/56 L 153/68 H Pulse Oximetry 95 92 L 94 L 09/27/18 09:30 09/27/18 09:45 Temperature Pulse Rate 78 82 Respiratory Rate 22 25 H Blood Pressure 156/70 H 162/74 H Pulse Oximetry 94 L 95 Intake & Output 09/26/18 09/27/18 09/27/18 18:59 06:59 18:59 Intake Total 100 / 100 163 / 163 200 / 200 Output Total 1600 / 1600 925 / 925 4200 / 4200 Balance -1500 / -1500 -762 / -762 -4000 / -4000 Weight 98.6 kg Intake: IV 100 / 100 50 / 50 200 / 200 Flexbumin 25% Inj 100 ML @ 60 200 / 200 mls/hr IV.SIG WITH DIALYSIS PRN Rx#:[id number] Zosyn 3.375 GM Premix 50 ML @ 100 / 100 50 / 50 100 mls/hr IV.SIG Q8H ZEKE Rx#: [id number] Oral 113 / 113 Output: Urine 925 / 925 Hemodialysis Amount 4200 / 4200 Urine Amount (Catheter) 1600 / 1600 Straight 1600 / 1600 Other: # Incontinent Voids 1 Date of Last Bowel Movement 09/23/18 09/26/18 09/26/18 # Incontinent Bowel Movements 2 Narrative: GENERAL: Well-nourished, Obese patient.No distress SKIN: Warm and dry. HEAD: Normocephalic. EYES: No scleral icterus. No injection or drainage. NECK: Supple, trachea midline. No JVD or lymphadenopathy. Dressing on the right side of neck CARDIOVASCULAR: S1-S2 irregular. RESPIRATORY: Breath sounds equal bilaterally. Crackles at bases and Wheeze. GASTROINTESTINAL: Abdomen soft, non-tender, nondistended. EXTREMITIES: 1+ edema of legs NEUROLOGICAL: alert and talking. - Urinary Catheter Management Indwelling Urethral Catheter Cath placed during this visit: yes, but has since been removed by the nurse Reason for continuing: Hourly intake/output Insertion date: 09/18/18 Insertion time: 09:00 Removal date: 09/23/18 Removal time: 17:00 Straight Cath placed during this visit: no Assessment and Plan - Assessment (1) Acute renal failure Code(s): N17.9 - Acute kidney failure, unspecified Status: Acute (2) COPD (chronic obstructive pulmonary disease) Code(s): J44.9 - Chronic obstructive pulmonary disease, unspecified Status: Acute (3) Pneumonia Code(s): J18.9 - Pneumonia, unspecified organism Status: Acute (4) Mood disorder due to known physiological condition with depressive features Code(s): F06.31 - Mood disorder due to known physiological condition with depressive features Status: Acute (5) Gout Code(s): M10.9 - Gout, unspecified Status: Acute (6) Hypertension Code(s): I10 - Essential (primary) hypertension Status: Acute - Plan Patient has acute tubular necrosis likely due to vancomycin levels are high Creatinine 2.7 -> 3 -> 3.2 -> 3.3-3.3-3.29-3.30-3.15-3.16-2.78-3.2-3.5 -2.62-- 2.87--2.2--2.29 hemodialysis 4.2 L dialysis tolerated well Monitor BMP, Monitor intake and output Ongoing peripheral edema Continue to monitor. Replace potassium Continue to monitor next dialysis possibly tomorrow
--- NOTE | 2018-09-27 13:19 | XR ---
EXAM DATE: 09/27/2018 1:11 PM EST AGE/SEX: 78 years / Male INDICATIONS: Respiratory failure. CLINICAL DATA: This is the patient's subsequent encounter. Patient reports that signs and symptoms h ave been present for 4 - 6 days and indicates a pain score of Nonresponsive. MEDICAL/SURGICAL HISTORY: Non-responsive. Non-responsive. COMPARISON: [facility], CHEST 1V SINGLE AP, 09/27/2018. . FINDINGS: Right neck Vas-Cath descends to the upper right atrium. Hazy bilateral alveolar opacity is slightly i mproved. Cardiac contours are grossly stable. Small effusions. CONCLUSION: Improving aeration Electronically signed by: Roland Rosenbaum MD 09/27/2018 1:18 PM EST
--- NOTE | 2018-09-27 14:48 | P.PN ---
Subjective Interval history: Refused BiPAP last Nite. Now on a NRB Mask. Was on dialysis and had 2 L removed., CXR is worse. Physical Exam Vital signs: Vital Signs 09/26/18 15:00 09/26/18 15:12 09/26/18 15:30 Temperature Pulse Rate 87 108 H 87 Respiratory Rate 30 H 24 24 Blood Pressure 159/70 H 166/70 H Pulse Oximetry 90 L 90 L 09/26/18 16:00 09/26/18 16:30 09/26/18 17:00 Temperature Pulse Rate 81 81 83 Respiratory Rate 25 H 25 H 34 H Blood Pressure 169/75 H 156/70 H 163/72 H Pulse Oximetry 90 L 93 L 93 L 09/26/18 17:30 09/26/18 18:00 09/26/18 18:31 Temperature Pulse Rate 82 80 82 Respiratory Rate 23 25 H 26 H Blood Pressure 160/72 H 170/74 H 163/73 H Pulse Oximetry 93 L 98 97 09/26/18 19:00 09/26/18 19:31 09/26/18 19:59 Temperature Pulse Rate 80 86 Respiratory Rate 23 26 H Blood Pressure 168/76 H 175/79 H Pulse Oximetry 98 82 L 93 L 09/26/18 20:00 09/26/18 20:31 09/26/18 21:00 Temperature Pulse Rate 84 84 76 Respiratory Rate 26 H 26 H 23 Blood Pressure 173/77 H 169/74 H 137/64 Pulse Oximetry 94 L 93 L 94 L 09/26/18 21:30 09/26/18 22:00 09/26/18 22:30 Temperature Pulse Rate 68 73 69 Respiratory Rate 23 22 21 Blood Pressure 124/60 140/65 139/64 Pulse Oximetry 90 L 92 L 92 L 09/26/18 23:00 09/26/18 23:15 09/26/18 23:17 Temperature Pulse Rate 73 87 Respiratory Rate 21 23 Blood Pressure 148/69 H Pulse Oximetry 91 L 94 L 09/26/18 23:30 09/27/18 00:00 09/27/18 00:01 Temperature 98.7 F Pulse Rate 83 80 88 Respiratory Rate 21 23 27 H Blood Pressure 154/70 H 153/68 H 153/68 H Pulse Oximetry 90 L 89 L 89 L 09/27/18 00:20 11/23/18 00:30 09/27/18 01:00 Temperature Pulse Rate 81 82 Respiratory Rate 26 H 27 H Blood Pressure 166/72 H 157/74 H Pulse Oximetry 92 L 95 96 09/27/18 01:30 09/27/18 02:00 09/27/18 02:31 Temperature Pulse Rate 83 90 86 Respiratory Rate 29 H 26 H 23 Blood Pressure 161/77 H 175/66 H 154/71 H Pulse Oximetry 97 97 90 L 09/27/18 03:00 09/27/18 03:30 09/27/18 04:00 Temperature Pulse Rate 74 74 74 Respiratory Rate 20 18 17 Blood Pressure 135/64 135/63 121/60 Pulse Oximetry 89 L 89 L 92 L 09/27/18 04:30 09/27/18 05:00 09/27/18 05:30 Temperature Pulse Rate 73 72 73 Respiratory Rate 18 17 18 Blood Pressure 133/63 139/63 139/65 Pulse Oximetry 93 L 93 L 91 L 09/27/18 06:00 09/27/18 06:30 09/27/18 07:00 Temperature Pulse Rate 72 72 106 H Respiratory Rate 17 16 28 H Blood Pressure 143/61 H 142/65 H 154/113 H Pulse Oximetry 92 L 92 L 88 L 09/27/18 07:29 09/27/18 07:30 09/27/18 08:00 Temperature Pulse Rate 82 80 87 Respiratory Rate 22 24 23 Blood Pressure 189/74 H Pulse Oximetry 92 L 96 09/27/18 08:01 09/27/18 08:30 09/27/18 08:45 Temperature Pulse Rate 87 90 86 Respiratory Rate 22 22 22 Blood Pressure 159/74 H 149/83 H 142/65 H Pulse Oximetry 95 95 95 09/27/18 09:00 09/27/18 09:16 09/27/18 09:30 Temperature Pulse Rate 88 81 78 Respiratory Rate 33 H 23 22 Blood Pressure 117/56 L 153/68 H 156/70 H Pulse Oximetry 92 L 94 L 94 L 09/27/18 09:45 09/27/18 10:00 09/27/18 10:15 Temperature Pulse Rate 82 80 75 Respiratory Rate 25 H 25 H 28 H Blood Pressure 162/74 H 160/71 H 156/72 H Pulse Oximetry 95 95 94 L 09/27/18 10:31 09/27/18 10:45 09/27/18 11:00 Temperature Pulse Rate 77 73 81 Respiratory Rate 26 H 25 H 32 H Blood Pressure 166/74 H 146/72 H 149/83 H Pulse Oximetry 94 L 93 L 92 L 09/27/18 11:15 09/27/18 11:30 09/27/18 12:00 Temperature Pulse Rate 75 85 88 Respiratory Rate 24 28 H 26 H Blood Pressure 130/63 158/73 H 164/77 H Pulse Oximetry 92 L 92 L 94 L 09/27/18 13:00 09/27/18 14:00 Temperature Pulse Rate 108 H 87 Respiratory Rate 27 H 27 H Blood Pressure 166/97 H 164/73 H Pulse Oximetry 99 98 Intake & Output 09/26/18 09/27/18 09/27/18 18:59 06:59 18:59 Intake Total 100 / 100 163 / 163 200 / 200 Output Total 1600 / 1600 925 / 925 4200 / 4200 Balance -1500 / -1500 -762 / -762 -4000 / -4000 Weight 98.6 kg Intake: IV 100 / 100 50 / 50 200 / 200 Flexbumin 25% Inj 100 ML @ 60 200 / 200 mls/hr IV.SIG WITH DIALYSIS PRN Rx#:[id number] Zosyn 3.375 GM Premix 50 ML @ 100 / 100 50 / 50 100 mls/hr IV.SIG Q8H ZEKE Rx#: [id number] Oral 113 / 113 Output: Urine 925 / 925 Hemodialysis Amount 4200 / 4200 Urine Amount (Catheter) 1600 / 1600 Straight 1600 / 1600 Other: # Incontinent Voids 1 Date of Last Bowel Movement 09/23/18 09/26/18 09/26/18 # Incontinent Bowel Movements 2 Narrative: GENERAL: Well-nourished, Obese patient.No distress SKIN: Warm and dry. HEAD: Normocephalic. EYES: No scleral icterus. No injection or drainage. NECK: Supple, trachea midline. No JVD or lymphadenopathy. Dressing on the right side of neck CARDIOVASCULAR: S1-S2 irregular. RESPIRATORY: Breath sounds equal bilaterally. Crackles at bases and mild Wheeze. GASTROINTESTINAL: Abdomen soft, non-tender, nondistended. EXTREMITIES: 1+ edema of legs NEUROLOGICAL: alert and talking. - Urinary Catheter Management Indwelling Urethral Catheter Cath placed during this visit: yes, but has since been removed by the nurse Reason for continuing: Hourly intake/output Insertion date: 09/18/18 Insertion time: 09:00 Removal date: 09/23/18 Removal time: 17:00 Straight Cath placed during this visit: no Results - Labs CBC & Chem 7: 09/27/18 03:52 09/27/18 03:52 Laboratory Results - last 24 hr 09/26/18 09/27/18 09/27/18 18:00 00:09 03:52 WBC 19.2 H RBC 2.71 L Hgb 8.0 L Hct 23.4 L MCV 86.6 MCH 29.5 MCHC 34.0 RDW 18.5 H Plt Count 63 L MPV 9.1 Puncture Site Patient Temperature O2 Saturation ABG pH ABG pCO2 ABG pO2 ABG HCO3 ABG O2 Content ABG Base Excess ABG Methemoglobin Cristian Test Hemoglobin Carboxyhemoglobin O2 Delivery Device Liter Flow Inspired O2 Critical Value Sodium Potassium Chloride Carbon Dioxide Anion Gap BUN Creatinine Estimated GFR POC Glucose 204 H Random Glucose Calcium Total Bilirubin AST ALT Alkaline Phosphatase Total Protein Albumin Urine Color Yellow Urine Clarity Clear Urine pH 6.0 Ur Specific [place] 1.008 Urine Protein 100 H Urine Glucose (UA) Negative Urine Ketones Negative Urine Occult Blood Large H Urine Nitrate Negative Urine Bilirubin Negative Urine Urobilinogen Less than 2 Ur Leukocyte Esterase Negative Urine RBC 76 H Urine WBC 3 Amorphous Sediment Rare H Hyaline Casts 6 Urine Mucus Few H Urine Yeast Rare H Micro UA Comment Cath-culture not ind Ur Microscopic Review Not Reportable Urine Culture Comments Cath-cult not ind 09/27/18 09/27/18 09/27/18 03:52 06:19 12:29 WBC RBC Hgb Hct MCV MCH MCHC RDW Plt Count MPV Puncture Site Left radial Patient Temperature 98.6 O2 Saturation 96 ABG pH 7.47 H ABG pCO2 43 H ABG pO2 156 H ABG HCO3 31 H ABG O2 Content 11.9 L ABG Base Excess 6.8 H ABG Methemoglobin 1.9 Cristian Test Present Hemoglobin 8.6 L Carboxyhemoglobin 1.5 O2 Delivery Device Non-rebreathing mask Liter Flow 15.00 Inspired O2 100 Critical Value No Sodium 148 H Potassium 3.5 Chloride 105 Carbon Dioxide 32.8 H Anion Gap 10 BUN 69 H Creatinine 2.29 H Estimated GFR 28 L POC Glucose 253 H Random Glucose 233 H Calcium 8.3 L Total Bilirubin 1.7 H AST 27 ALT 64 Alkaline Phosphatase 52 Total Protein 5.4 L Albumin 3.2 L D Urine Color Urine Clarity Urine pH Ur Specific [place] Urine Protein Urine Glucose (UA) Urine Ketones Urine Occult Blood Urine Nitrate Urine Bilirubin Urine Urobilinogen Ur Leukocyte Esterase Urine RBC Urine WBC Amorphous Sediment Hyaline Casts Urine Mucus Urine Yeast Micro UA Comment Ur Microscopic Review Urine Culture Comments Microbiology 09/26/18 09:25 Blood - Peripheral Aerobic Blood Culture - Preliminary No growth in 1 day 09/26/18 09:25 Blood - Peripheral Anaerobic Blood Culture - Preliminary No growth in 1 day 09/26/18 09:30 Blood - Peripheral Aerobic Blood Culture - Preliminary No growth in 1 day 09/26/18 09:30 Blood - Peripheral Anaerobic Blood Culture - Preliminary No growth in 1 day - Imaging Impressions Chest X-Ray 09/27/18 06:00 CONCLUSION: Bilateral airspace disease, stable to slightly worse compared with September 26 with small bilateral pleural effusions. Chest X-Ray 09/27/18 12:00 CONCLUSION: Improving aeration Assessment and Plan - Assessment (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 Acute hypoxemic respiratory failure 2. Left upper lobe pneumonia 3. B/l pulm infiltrates 4. Acute kidney injury. 5. Anemia. 6. Coronary artery disease. 7. Diabetes mellitus. 8. Hypertension. 9. Chronic obstructive pulmonary disease. 10. Obesity. Plan Pulm: 1) Continue with NRB mask and wean to N/C at 5 L. 2) Dialysis today 3) Cont Antibiotics 4) Cont Duoneb nebs qid. 5) CBC,BMP in am 6) Use BIPAP at HS 12/5 CM FIO2 40% 7) PO diet as tolerated 8) D/C Solumedrol and add prednisone 20 mg BID
[2018-09-27] MEDS: predniSONE 20 MG Tablet PO SCH (20:48)
[2018-09-28] MEDS: Piperacil/Tazo 3.375 GM Premix 50 ML IV.SIG SCH ×3 (01:21→17:29)
[2018-09-28] MEDS: Metoprolol Inj 5 MG/5 ML Vial IV.PUSH SCH ×2 (01:22→08:44)
[2018-09-28] MEDS: Oral Hygiene Kit OROPHARYNG SCH ×3 (04:13→15:14)
[2018-09-28] MEDS: Insulin NovoLOG Aspart Correctional Sugar Inj SQ SCH ×3 (06:03→17:19)
[2018-09-28] MEDS: Chlorhexidine 0.12% Oral Kit 15 ML UDC OROPHARYNG SCH ×2 (08:45→19:19)
[2018-09-28] MEDS: dilTIAZem 60 MG Tablet PO SCH ×5 (08:45→21:45)
[2018-09-28] MEDS: Pantoprazole Inj 40 MG Vial IV.PUSH SCH (08:45)
[2018-09-28] MEDS: Chlorothiazide Inj 500 MG Vial IV.PUSH SCH (08:46)
[2018-09-28] MEDS: Sodium Chloride 0.9% 2 ML Flush BID IV.FLUSH SCH ×2 (08:46→21:45)
[2018-09-28] MEDS: QUEtiapine 25 MG Tablet PO SCH ×2 (08:46→21:45)
[2018-09-28] MEDS: predniSONE 20 MG Tablet PO SCH ×2 (08:46→21:45)
[2018-09-28] MEDS: Dexmedetomidine Inj 1,000 MCG in Sodium Chlor 0.9% Inj 240 ML IV.CONT PRN (08:47)
--- NOTE | 2018-09-28 09:04 | P.PNCC ---
Subjective Subjective Remarks/Hospital Course: Patient is a 78-year-old male with a past medical history of ? COPD, hypertension, diabetes mellitus, coronary artery disease and gout. He was admitted to inpatient medication psych on 08/17/2018 for suicidal ideation and acute kidney injury. He was found to have a creatinine of 1.64. During his hospital course, the patient was seen by hospitalist service. He had a chest x- ray on 08/19/2018. At that time it showed mild basilar opacity, probably subsegmental atelectasis with trace pleural fluid. Then, he had a CT scan of the chest on 09/07/2018 which showed suspected left hilar mass, mild congestive heart failure with small bilateral pleural effusions, left upper lobe pneumonia and focal atypical appearing infiltrate in the right middle lobe with dependent atelectasis of both lower lobes. He was started on broad-spectrum antibiotics. The patient had a V/Q scan on 09/08/2018 which showed a low probability for pulmonary embolism. Helicat was called for increased O2 requirements and the patient was subsequently transferred to [facility] [place] and Critical Care Medicine was consulted for critical care management. When seen, the patient was on partial nonrebreather mask with a saturation of 100%. Blood pressure 151/70 with a pulse of 89. The patient states that he quit smoking over 20 years ago. He does not use any inhalers or nebulizers at home. He denies any nausea, vomiting or abdominal pain. 09/11 Patient is lying in bed in NAD. Afebrile. 09/12 Patient is lying in bed in NAD. On 4L oxygen. Afebrile. Renal function worse today with Cr: 2.70 from 1.81 09/13 Patient is lying in bed in NAD. Afebrile, Renal function is worsening with Cr: 3.04 from 2.70 09/14 Patient dropped his sats overnight placed on partial rebreather, CXR this morning showed b/l pulm infiltrates. Given Lasix 40mg IV x1. Afebrile. 09/15: Afebrile. Lying in bed in no acute distress. Currently on high flow at 90% nasal cannula. 09/16 Patient is on high flow oxygen 30L with 90% FIO2. Afebrile: 09/17 Patient is on 35L high flow oxyge with 60% FIO2. Awake and alert, Afebrile. 09/18: Patient currently more critical FiO2 requirement has increased overnight currently on 90% FiO2 with high flow oxygen to maintain sat above 90%. Chest x- ray shows severe bilateral upper lobe infiltrates with appearance of pulmonary edema. With Bumex IV push patient has urine output more than 2.5 L, however not achieving adequate and negative balance. BUN 18 today with creatinine of 3.3. Will discontinue IV Bumex and start Bumex infusion at 1 mg/h along with IV albumin. 09/19: Agitated overnight. BUN and creatinine unchanged from yesterday. Started on bumex gtt yesterday. It doesn't appear that his urine output was charted during the day shift yesterday but he made 1200 cc of urine overnight and was - 700 cc for the shift. He is currently on high flow 40 L at 100%. Patient states "I want to get out of bed to a chair today". 09/20: Patient continued to have tachypnea and increased work of breathing throughout the morning yesterday, O2 sats stayed around 88-90% on high flow, still wasn't diuresing adequately with bumex/ albumin. He was intubated and and a RIJ vasc cath was placed, received first HD session yesterday afternoon. 09/21: Resting comfortably, no significant overnight events 09/22: Pulmonary edema continues to improve, tolerated spontaneous breathing trial x 2 hours this morning but had an episode of A fib with RVR and appeared anxious. Oozing continues from RIJ vasc cath, will reinforce with suture/ Gelfoam. 09/23: Currently being dialyzed. I placed a suture around the base of the RIJ vasc cath yesterday with Gelfoam reinforcement, less oozing today as per RN. Will attempt SBT after HD. 09/24: ETT exchanged yesterday due to cuff issue, no other overnight events. Tolerated HD yesterday without issue. 09/25: No overnight events. Tolerated spontaneous breathing trial x 1-2 hours yesterday but had to be placed back on AC due to apneic pauses. Continue to aggressively wean vent today. Currently being dialyzed. 09/26: Extubated yesterday currently hypoxic requiring partial nonrebreather. Chest x-ray today shows worsening pulmonary edema especially on the right side. I will start scheduled Lasix 2 mg IV every 12 hours. Nephrology following, will request hemodialysis today due to fluid overload/worsening pulmonary edema. 09/27: Patient remains on nonrebreather, does not tolerate BiPAP. Took a turn for the worse more critical now. When patient removed his partial nonrebreather his oxygen saturation decreased to 60%. Was immediately replaced currently saturating 88%. Chest x-ray shows extensive worsening bilateral pulmonary edema. Discussed with nephrology emergency hemodialysis with fluid removal and repeat chest x-ray. If clinically and radiologically not improving patient will need to be placed on mechanical ventilatory support. Despite achieving negative balance has bilateral infiltrate indicating possibility of ARDS 09/28: Patient remains on nonrebreather. But slightly improved pattern of breathing. Hemodialysis with 4.2 L removed yesterday. Urine output adequate 1.6 L in 24 hours. Patient better oriented today Objective Vital Signs / I&O: Vital Signs 09/27/18 09:00 09/27/18 09:16 09/27/18 09:30 Temperature Pulse Rate 88 81 78 Respiratory Rate 33 H 23 22 Blood Pressure 117/56 L 153/68 H 156/70 H Pulse Oximetry 92 L 94 L 94 L 09/27/18 09:45 09/27/18 10:00 09/27/18 10:15 Temperature Pulse Rate 82 80 75 Respiratory Rate 25 H 25 H 28 H Blood Pressure 162/74 H 160/71 H 156/72 H Pulse Oximetry 95 95 94 L 09/27/18 10:31 09/27/18 10:45 09/27/18 11:00 Temperature Pulse Rate 77 73 81 Respiratory Rate 26 H 25 H 32 H Blood Pressure 166/74 H 146/72 H 149/83 H Pulse Oximetry 94 L 93 L 92 L 09/27/18 11:15 09/27/18 11:30 09/27/18 12:00 Temperature Pulse Rate 75 85 88 Respiratory Rate 24 28 H 26 H Blood Pressure 130/63 158/73 H 164/77 H Pulse Oximetry 92 L 92 L 94 L 09/27/18 13:00 09/27/18 14:00 09/27/18 15:00 Temperature Pulse Rate 108 H 87 85 Respiratory Rate 27 H 27 H 27 H Blood Pressure 166/97 H 164/73 H 161/77 H Pulse Oximetry 99 98 99 09/27/18 15:13 09/27/18 16:00 09/27/18 17:00 Temperature Pulse Rate 120 H 91 H 92 H Respiratory Rate 24 24 24 Blood Pressure 159/71 H 156/70 H Pulse Oximetry 98 98 09/27/18 18:00 09/27/18 19:00 09/27/18 19:01 Temperature Pulse Rate 98 H 87 88 Respiratory Rate 26 H 25 H 24 Blood Pressure 150/78 H 167/111 H Pulse Oximetry 84 L 96 97 09/27/18 20:00 09/27/18 20:17 09/27/18 21:00 Temperature 99.1 F Pulse Rate 86 88 83 Respiratory Rate 24 20 23 Blood Pressure 178/77 H 169/77 H Pulse Oximetry 96 93 L 99 09/27/18 21:55 09/27/18 22:00 09/27/18 22:01 Temperature Pulse Rate 92 H 90 Respiratory Rate 29 H 31 H Blood Pressure 110/71 Pulse Oximetry 95 94 L 09/27/18 23:00 09/27/18 23:01 09/28/18 00:00 Temperature 99 F Pulse Rate 105 H 122 H 99 H Respiratory Rate 35 H 37 H 27 H Blood Pressure 174/83 H 175/88 H Pulse Oximetry 91 L 98 96 09/28/18 02:00 09/28/18 04:00 09/28/18 04:05 Temperature 98.9 F Pulse Rate 81 80 80 Respiratory Rate 30 H 26 H Blood Pressure 154/68 H Pulse Oximetry 92 L 09/28/18 06:00 09/28/18 07:00 09/28/18 08:20 Temperature Pulse Rate 87 Respiratory Rate Blood Pressure Pulse Oximetry 98 95 Intake & Output 09/27/18 09/28/18 09/28/18 18:59 06:59 18:59 Intake Total 300 / 300 110 / 110 Output Total 4750 / 4750 700 / 700 Balance -4450 / -4450 -590 / -590 Weight 90.6 kg Intake: IV 300 / 300 50 / 50 Flexbumin 25% Inj 100 ML @ 60 200 / 200 mls/hr IV.SIG WITH DIALYSIS PRN Rx#:[id number] Zosyn 3.375 GM Premix 50 ML @ 100 / 100 50 / 50 100 mls/hr IV.SIG Q8H ZEKE Rx#: [id number] Oral 60 / 60 Output: Urine 550 / 550 700 / 700 Hemodialysis Amount 4200 / 4200 Other: # Voids 2 Date of Last Bowel Movement 09/26/18 09/27/18 # Incontinent Bowel Movements 1 Result Diagrams: 09/27/18 03:52 09/27/18 03:52 Objective Remarks: GENERAL: Patient is currently on 100% nonrebreather. SKIN: Warm and dry. HEAD: NCAT EYES: PERRL NECK: Supple, trachea midline. RIJ vasc cath present with some blood on biopatch CARDIOVASCULAR: Irregular rate and rhythm intermittently tachycardic RESPIRATORY: Air entry diminished bilaterally with diffuse crackles bilaterally. Scattered rhonchi. GASTROINTESTINAL: Abdomen soft, non-tender, non-distended. MUSCULOSKELETAL: No cyanosis, 1+ pedal edema NEURO: Patient is alert awake oriented to person place and day. Moving all extremities no focal deficits Assessment and Plan - Assessment and Plan Plan: ASSESSMENT 1. Acute hypoxemic respiratory failure 2. Severe acute pulmonary edema/congestive heart failure 3. ARDS 4. Left upper lobe pneumonia per CT chest. 5. Acute kidney failure worsening 6. Agitated delirium 7. Coronary artery disease. 8. Diabetes mellitus. 9. Hypertension. 10. Chronic obstructive pulmonary disease. 11. Leukocytosis 12. Transaminitis 13. Acute blood loss anemia 14: Sinus tachycardia with frequent PACs Plan Neuro: Monitor neuro status. Discontinue Precedex. Up to chair daily Continue seroquel BID Pulm: Intubated 09/19 for continued pulmonary edema/ resp distress, extubated 09/25/2018 Pulmonary edema improved after hemodialysis with 4.2 L removed yesterday Possible ARDS cannot be ruled out Bronchodilators with albuterol/ipratropium aerosols every 4 hours with albuterol aerosols every 2 hours as needed dyspnea Prednisone 20 mg twice daily, Symbicort 160/4.5 two puffs b.i.d. Pulm is following-Dr. Garcia Not tolerate BiPAP CV: Cardizem 60 mg QID. continue metoprolol 5 mg IV every 6 hours PRN BP borderline during HD, albumin bolus PRN Echo on 08/30/2018 EF of 50% to 55%, concentric LV hypertrophy. PA pressure 32 mmHg. Bumex 2 mg IV every 12 hours Hemodialysis with 4.2 L removed yesterday : Monitor renal function, I's and O's, and avoid nephrotoxins. Renal US: No masses, no hydronephrosis Urine output 1600 cc over the past 24 hrs, continue IV Bumex and IV Diuril Nephrology following (Dr. Krueger), dialysis 09/27 ARF likely due to ATN 2nd Vanco tox. GI: on pantoprazole 40 mg IV daily for GI prophylaxis. Clear liquid diets if, patient tolerated Monitor LFT's, US liver showed only ascites ID: s/p 1 week treatment for CAP, afebrile, but persistent leukocytosis worsening with increased infiltrate on chest x-ray Repeat sputum culture, started on Zosyn, renally dosed 09/12: normal resp zeb. Repeat blood and sputum culture. strep pneumonia and legionella urinary antigen negative Heme: Monitor CBC-- Hg stable Monitor RIJ vasc cath for oozing/ bleeding Endo: SSI with aspart insulin to medium scale with Accu-Chek for glycemic control Hold allopurinol until kidney function recovers GI prophylaxis with pantoprazole 40 mg daily DVT prophylaxis with SCD and hold SQH due to hemoptysis OVERALL: This patient remains critically ill extubated 09/25 but worsening respiratory status with increasing pulmonary edema worsening leukocytosis of increasing sputum production. IV Bumex IV Diuril, Zosyn panculture. Emergent hemodialysis with fluid removal again yesterday with slight improvement in respiratory status Level 3
[2018-09-28] MEDS: Budesonide-Formoterol 160/4.5 MCG 6 GM Inhaler INH SCH ×2 (09:05→21:46)
--- NOTE | 2018-09-28 09:41 | XR ---
EXAM DATE: 09/28/2018 9:28 AM EST AGE/SEX: 78 years / Male INDICATIONS: Respiratory disease. CLINICAL DATA: This is the patient's subsequent encounter. Patient reports that signs and symptoms h ave been present for 1 day and indicates a pain score of 0/10. MEDICAL/SURGICAL HISTORY: None. None. COMPARISON: [facility] [place] CHEST 1V SINGLE AP, 09/27/2018. . FINDINGS: There is a right internal jugular central line placed with tip overlying the right atrium. The heart size is mildly enlarged. There is increased density in the upper lungs bilaterally being more promine nt on the left. There is increased density at the right base. Some this may be secondary to some effu hannah within a fissure. There is blunting of the left cusp angle. CONCLUSION: Increased parenchymal density in the upper lungs likely from consolidation. These areas appear better aerated on the current exam. Suspected bilateral effusions. Electronically signed by: Roland Obando MD 09/28/2018 9:39 AM EST
[2018-09-28] MEDS ORDERED: Haloperidol Inj 5 MG/ML Ampul IV.PUSH ONE (10:15)
[2018-09-28] MEDS ORDERED: Haloperidol Inj 5 MG/ML Ampul IV.PUSH PRN (14:00)
--- NOTE | 2018-09-28 16:37 | P.PNNP ---
Subjective Interval history: Patient seen during hemodialysis is on facemask oxygen Physical Exam Vital signs: Vital Signs 09/27/18 17:00 09/27/18 18:00 09/27/18 19:00 Temperature Pulse Rate 92 H 98 H 87 Respiratory Rate 24 26 H 25 H Blood Pressure 156/70 H 150/78 H Pulse Oximetry 98 84 L 96 09/27/18 19:01 09/27/18 20:00 09/27/18 20:17 Temperature 99.1 F Pulse Rate 88 86 88 Respiratory Rate 24 24 20 Blood Pressure 167/111 H 178/77 H Pulse Oximetry 97 96 93 L 09/27/18 21:00 09/27/18 21:55 09/27/18 22:00 Temperature Pulse Rate 83 92 H Respiratory Rate 23 29 H Blood Pressure 169/77 H Pulse Oximetry 99 95 94 L 09/27/18 22:01 09/27/18 23:00 09/27/18 23:01 Temperature Pulse Rate 90 105 H 122 H Respiratory Rate 31 H 35 H 37 H Blood Pressure 110/71 174/83 H Pulse Oximetry 91 L 98 09/28/18 00:00 09/28/18 02:00 09/28/18 04:00 Temperature 99 F 98.9 F Pulse Rate 99 H 81 80 Respiratory Rate 27 H 30 H Blood Pressure 175/88 H 154/68 H Pulse Oximetry 96 92 L 09/28/18 04:05 09/28/18 06:00 09/28/18 07:00 Temperature Pulse Rate 80 87 Respiratory Rate 26 H Blood Pressure Pulse Oximetry 98 09/28/18 08:00 09/28/18 08:20 09/28/18 09:32 Temperature 98.1 F Pulse Rate 82 91 H Respiratory Rate 31 H 24 Blood Pressure 149/67 H Pulse Oximetry 98 95 09/28/18 10:00 09/28/18 12:00 09/28/18 14:00 Temperature 98.8 F Pulse Rate 79 96 H 86 Respiratory Rate 30 H Blood Pressure 134/60 Pulse Oximetry 91 L 09/28/18 14:42 09/28/18 16:00 Temperature Pulse Rate 81 80 Respiratory Rate 21 29 H Blood Pressure 139/65 Pulse Oximetry 98 Intake & Output 09/27/18 09/28/18 09/28/18 18:59 06:59 18:59 Intake Total 300 / 300 110 / 110 75 / 75 Output Total 4750 / 4750 700 / 700 150 / 150 Balance -4450 / -4450 -590 / -590 -75 / -75 Weight 90.6 kg Intake: IV 300 / 300 50 / 50 75 / 75 Precedex Inj 1,000 MCG In NS 25 / 25 Inj 240 ML @ 0.2 MCG/KG/HR 5.36 mls/hr IV.CONT TITRATE PRN Rx# :[id number] Flexbumin 25% Inj 100 ML @ 60 200 / 200 mls/hr IV.SIG WITH DIALYSIS PRN Rx#:[id number] Zosyn 3.375 GM Premix 50 ML @ 100 / 100 50 / 50 50 / 50 100 mls/hr IV.SIG Q8H ZEKE Rx#: [id number] Oral 60 / 60 Output: Urine 550 / 550 700 / 700 150 / 150 Hemodialysis Amount 4200 / 4200 Other: # Voids 2 Date of Last Bowel Movement 09/26/18 09/27/18 09/27/18 # Incontinent Bowel Movements 1 Narrative: GENERAL: Well-nourished, Obese patient.No distress SKIN: Warm and dry. HEAD: Normocephalic. EYES: No scleral icterus. No injection or drainage. NECK: Supple, trachea midline. No JVD or lymphadenopathy. Dressing on the right side of neck CARDIOVASCULAR: S1-S2 irregular. RESPIRATORY: Breath sounds equal bilaterally. Crackles at bases and mild Wheeze. GASTROINTESTINAL: Abdomen soft, non-tender, nondistended. EXTREMITIES: 1+ edema of legs NEUROLOGICAL: alert and talking. - Urinary Catheter Management Indwelling Urethral Catheter Cath placed during this visit: yes, but has since been removed by the nurse Reason for continuing: Hourly intake/output Insertion date: 09/18/18 Insertion time: 09:00 Removal date: 09/23/18 Removal time: 17:00 Straight Cath placed during this visit: no Assessment and Plan - Assessment (1) Acute renal failure Code(s): N17.9 - Acute kidney failure, unspecified Status: Acute (2) COPD (chronic obstructive pulmonary disease) Code(s): J44.9 - Chronic obstructive pulmonary disease, unspecified Status: Acute (3) Pneumonia Code(s): J18.9 - Pneumonia, unspecified organism Status: Acute (4) Mood disorder due to known physiological condition with depressive features Code(s): F06.31 - Mood disorder due to known physiological condition with depressive features Status: Acute (5) Gout Code(s): M10.9 - Gout, unspecified Status: Acute (6) Hypertension Code(s): I10 - Essential (primary) hypertension Status: Acute - Plan Patient has acute tubular necrosis likely due to vancomycin levels are high Creatinine 2.7 -> 3 -> 3.2 -> 3.3-3.3-3.29-3.30-3.15-3.16-2.78-3.2-3.5 -2.62-- 2.87--2.2--2.29 hemodialysis: Seen during hemodialysis 3.5 L dialysis tolerated well Monitor BMP, Monitor intake and output Ongoing peripheral edema Continue to monitor. Continue to monitor next dialysis possibly Sunday
--- NOTE | 2018-09-28 18:11 | P.PN ---
Subjective Interval history: ALERT NAD CONCLUDED DIALYSIS Physical Exam Vital signs: Vital Signs 09/27/18 19:00 09/27/18 19:01 09/27/18 20:00 Temperature 99.1 F Pulse Rate 87 88 86 Respiratory Rate 25 H 24 24 Blood Pressure 167/111 H 178/77 H Pulse Oximetry 96 97 96 09/27/18 20:17 09/27/18 21:00 09/27/18 21:55 Temperature Pulse Rate 88 83 Respiratory Rate 20 23 Blood Pressure 169/77 H Pulse Oximetry 93 L 99 95 09/27/18 22:00 09/27/18 22:01 09/27/18 23:00 Temperature Pulse Rate 92 H 90 105 H Respiratory Rate 29 H 31 H 35 H Blood Pressure 110/71 Pulse Oximetry 94 L 91 L 09/27/18 23:01 09/28/18 00:00 09/28/18 02:00 Temperature 99 F Pulse Rate 122 H 99 H 81 Respiratory Rate 37 H 27 H Blood Pressure 174/83 H 175/88 H Pulse Oximetry 98 96 09/28/18 04:00 09/28/18 04:05 09/28/18 06:00 Temperature 98.9 F Pulse Rate 80 80 87 Respiratory Rate 30 H 26 H Blood Pressure 154/68 H Pulse Oximetry 92 L 09/28/18 07:00 09/28/18 08:00 09/28/18 08:20 Temperature 98.1 F Pulse Rate 82 Respiratory Rate 31 H Blood Pressure 149/67 H Pulse Oximetry 98 98 95 09/28/18 09:32 09/28/18 10:00 09/28/18 12:00 Temperature 98.8 F Pulse Rate 91 H 79 96 H Respiratory Rate 24 30 H Blood Pressure 134/60 Pulse Oximetry 91 L 09/28/18 14:00 09/28/18 14:42 09/28/18 16:00 Temperature 98.2 F Pulse Rate 86 81 80 Respiratory Rate 21 29 H Blood Pressure 139/65 Pulse Oximetry 98 Intake & Output 09/27/18 09/28/18 09/28/18 18:59 06:59 18:59 Intake Total 300 / 300 110 / 110 125 / 125 Output Total 4750 / 4750 700 / 700 150 / 150 Balance -4450 / -4450 -590 / -590 -25 / -25 Weight 90.6 kg Intake: IV 300 / 300 50 / 50 125 / 125 Precedex Inj 1,000 MCG In NS 25 / 25 Inj 240 ML @ 0.2 MCG/KG/HR 5.36 mls/hr IV.CONT TITRATE PRN Rx# :[id number] Flexbumin 25% Inj 100 ML @ 60 200 / 200 mls/hr IV.SIG WITH DIALYSIS PRN Rx#:[id number] Zosyn 3.375 GM Premix 50 ML @ 100 / 100 50 / 50 100 / 100 100 mls/hr IV.SIG Q8H ZEKE Rx#: [id number] Oral 60 / 60 Output: Urine 550 / 550 700 / 700 150 / 150 Hemodialysis Amount 4200 / 4200 Other: # Voids 2 Date of Last Bowel Movement 09/26/18 09/27/18 09/27/18 # Incontinent Bowel Movements 1 Narrative: GENERAL: Well-nourished, Obese patient.No distress SKIN: Warm and dry. HEAD: Normocephalic. EYES: No scleral icterus. No injection or drainage. NECK: Supple, trachea midline. No JVD or lymphadenopathy. Dressing on the right side of neck CARDIOVASCULAR: S1-S2 irregular. RESPIRATORY: Breath sounds equal bilaterally. Crackles at bases and mild Wheeze. GASTROINTESTINAL: Abdomen soft, non-tender, nondistended. EXTREMITIES: 1+ edema of legs NEUROLOGICAL: alert and talking. - Urinary Catheter Management Indwelling Urethral Catheter Cath placed during this visit: yes, but has since been removed by the nurse Reason for continuing: Hourly intake/output Insertion date: 09/18/18 Insertion time: 09:00 Removal date: 09/23/18 Removal time: 17:00 Straight Cath placed during this visit: no Results - Labs CBC & Chem 7: 09/27/18 03:52 09/27/18 03:52 Laboratory Results - last 24 hr 09/27/18 09/28/18 09/28/18 23:50 05:26 12:21 POC Glucose 208 H 218 H 193 H 09/28/18 17:19 POC Glucose 148 H Microbiology 09/26/18 09:25 Blood - Peripheral Aerobic Blood Culture - Preliminary Staphylococcus coag negative 09/26/18 09:25 Blood - Peripheral Anaerobic Blood Culture - Preliminary No growth in 2 days 09/26/18 09:30 Blood - Peripheral Aerobic Blood Culture - Preliminary No growth in 2 days 09/26/18 09:30 Blood - Peripheral Anaerobic Blood Culture - Preliminary No growth in 2 days - Imaging Impressions Chest X-Ray 09/28/18 00:00 CONCLUSION: Increased parenchymal density in the upper lungs likely from consolidation. These areas appear better aerated on the current exam. Suspected bilateral effusions. Assessment and Plan - Plan impression respiratory failure renal failure pna copd plan O2 NEEDED/PAP antibx wean as tolerated
[2018-09-29] MEDS: Insulin NovoLOG Aspart Correctional Sugar Inj SQ SCH ×4 (00:26→17:32)
[2018-09-29] MEDS: Oral Hygiene Kit OROPHARYNG SCH ×4 (00:27→17:33)
[2018-09-29] MEDS: Piperacil/Tazo 3.375 GM Premix 50 ML IV.SIG SCH ×3 (04:11→17:31)
--- NOTE | 2018-09-29 04:40 | XR ---
EXAM DATE: 09/29/2018 4:28 AM EST AGE/SEX: 78 years / Male INDICATIONS: Shortness of breath, possible pulmonary disease. CLINICAL DATA: This is the patient's subsequent encounter. Patient reports that signs and symptoms h ave been present for 2 weeks and indicates a pain score of Nonresponsive. MEDICAL/SURGICAL HISTORY: Chronic obstructive pulmonary disease. Hypertension. Renal failure, acute. None. COMPARISON: [facility] – [place], CHEST 1V SINGLE AP, 09/28/2018. . FINDINGS: Right central line in right atrium. Slight increase in right upper lobe consolidation since September 28. Left perihilar airspace disease are stable. Small effusions. Tortuous aorta. No pneumothorax. CONCLUSION: Increase in right upper lobe airspace disease over the last day. Left-sided airspace disease stable w ith small effusions. Electronically signed by: Daniel Parada MD 09/29/2018 4:39 AM EST
[2018-09-29 05:48] LABS: Hematocrit 26.9 % (39.0-51.0); Hemoglobin 9.1 gm/dL (13.0-17.0); Mean Corpuscular HGB Conc 33.7 % (32.0-36.0); Mean Corpuscular Hemoglobin 29.5 pg (27.0-34.0); Mean Corpuscular Volume 87.4 fL (80.0-100.0); Mean Platelet Volume 9.1 fL (7.0-11.0); Platelet Count 73 th/mm3 (150-450); Red Blood Count 3.08 mil/mm3 (4.50-5.90); Red Cell Distribution Width 18.7 % (11.6-17.2); White Blood Count 19.9 th/mm3 (4.0-11.0)
[2018-09-29 06:21] LABS: Alanine Aminotransferase 52 U/L (12-78); Alkaline Phosphatase 65 U/L (45-117); Anion Gap 17 meq/L (5-15); Aspartate Aminotransferase 35 U/L (15-37); Blood Urea Nitrogen 47 mg/dL (7-18); Carbon Dioxide 27.3 meq/L (21.0-32.0); Chloride 100 meq/L (98-107); Glomerular Filtration Rate 24 mL/min (>89); Glucose,Random 195 mg/dL (74-106); Potassium 3.4 meq/L (3.5-5.1); Sodium 144 meq/L (136-145); Total Protein 6.6 g/dL (6.4-8.2)
[2018-09-29] MEDS: Chlorhexidine 0.12% Oral Kit 15 ML UDC OROPHARYNG SCH ×2 (07:56→21:54)
[2018-09-29] MEDS: predniSONE 20 MG Tablet PO SCH ×2 (07:59→21:55)
[2018-09-29] MEDS: dilTIAZem 60 MG Tablet PO SCH ×4 (07:59→21:55)
[2018-09-29] MEDS: QUEtiapine 25 MG Tablet PO SCH ×2 (07:59→21:55)
[2018-09-29] MEDS: Sodium Chloride 0.9% 2 ML Flush BID IV.FLUSH SCH ×2 (07:59→21:55)
[2018-09-29] MEDS: Pantoprazole Inj 40 MG Vial IV.PUSH SCH (08:00)
[2018-09-29] MEDS: Budesonide-Formoterol 160/4.5 MCG 6 GM Inhaler INH SCH ×2 (08:00→21:55)
[2018-09-29] MEDS ORDERED: Haloperidol Inj 5 MG/ML Ampul IV.PUSH PRN (09:48)
--- NOTE | 2018-09-29 09:52 | P.PNCC ---
Subjective Subjective Remarks/Hospital Course: Patient is a 78-year-old male with a past medical history of ? COPD, hypertension, diabetes mellitus, coronary artery disease and gout. He was admitted to inpatient medication psych on 08/17/2018 for suicidal ideation and acute kidney injury. He was found to have a creatinine of 1.64. During his hospital course, the patient was seen by hospitalist service. He had a chest x- ray on 08/19/2018. At that time it showed mild basilar opacity, probably subsegmental atelectasis with trace pleural fluid. Then, he had a CT scan of the chest on 09/07/2018 which showed suspected left hilar mass, mild congestive heart failure with small bilateral pleural effusions, left upper lobe pneumonia and focal atypical appearing infiltrate in the right middle lobe with dependent atelectasis of both lower lobes. He was started on broad-spectrum antibiotics. The patient had a V/Q scan on 09/08/2018 which showed a low probability for pulmonary embolism. Helicat was called for increased O2 requirements and the patient was subsequently transferred to [facility] and Critical Care Medicine was consulted for critical care management. When seen, the patient was on partial nonrebreather mask with a saturation of 100%. Blood pressure 151/70 with a pulse of 89. The patient states that he quit smoking over 20 years ago. He does not use any inhalers or nebulizers at home. He denies any nausea, vomiting or abdominal pain. 09/11 Patient is lying in bed in NAD. Afebrile. 09/12 Patient is lying in bed in NAD. On 4L oxygen. Afebrile. Renal function worse today with Cr: 2.70 from 1.81 09/13 Patient is lying in bed in NAD. Afebrile, Renal function is worsening with Cr: 3.04 from 2.70 09/14 Patient dropped his sats overnight placed on partial rebreather, CXR this morning showed b/l pulm infiltrates. Given Lasix 40mg IV x1. Afebrile. 09/15: Afebrile. Lying in bed in no acute distress. Currently on high flow at 90% nasal cannula. 09/16 Patient is on high flow oxygen 30L with 90% FIO2. Afebrile: 09/17 Patient is on 35L high flow oxyge with 60% FIO2. Awake and alert, Afebrile. 09/18: Patient currently more critical FiO2 requirement has increased overnight currently on 90% FiO2 with high flow oxygen to maintain sat above 90%. Chest x- ray shows severe bilateral upper lobe infiltrates with appearance of pulmonary edema. With Bumex IV push patient has urine output more than 2.5 L, however not achieving adequate and negative balance. BUN 18 today with creatinine of 3.3. Will discontinue IV Bumex and start Bumex infusion at 1 mg/h along with IV albumin. 09/19: Agitated overnight. BUN and creatinine unchanged from yesterday. Started on bumex gtt yesterday. It doesn't appear that his urine output was charted during the day shift yesterday but he made 1200 cc of urine overnight and was - 700 cc for the shift. He is currently on high flow 40 L at 100%. Patient states "I want to get out of bed to a chair today". 09/20: Patient continued to have tachypnea and increased work of breathing throughout the morning yesterday, O2 sats stayed around 88-90% on high flow, still wasn't diuresing adequately with bumex/ albumin. He was intubated and and a RIJ vasc cath was placed, received first HD session yesterday afternoon. 09/21: Resting comfortably, no significant overnight events 09/22: Pulmonary edema continues to improve, tolerated spontaneous breathing trial x 2 hours this morning but had an episode of A fib with RVR and appeared anxious. Oozing continues from RIJ vasc cath, will reinforce with suture/ Gelfoam. 09/23: Currently being dialyzed. I placed a suture around the base of the RIJ vasc cath yesterday with Gelfoam reinforcement, less oozing today as per RN. Will attempt SBT after HD. 09/24: ETT exchanged yesterday due to cuff issue, no other overnight events. Tolerated HD yesterday without issue. 09/25: No overnight events. Tolerated spontaneous breathing trial x 1-2 hours yesterday but had to be placed back on AC due to apneic pauses. Continue to aggressively wean vent today. Currently being dialyzed. 09/26: Extubated yesterday currently hypoxic requiring partial nonrebreather. Chest x-ray today shows worsening pulmonary edema especially on the right side. I will start scheduled Lasix 2 mg IV every 12 hours. Nephrology following, will request hemodialysis today due to fluid overload/worsening pulmonary edema. 09/27: Patient remains on nonrebreather, does not tolerate BiPAP. Took a turn for the worse more critical now. When patient removed his partial nonrebreather his oxygen saturation decreased to 60%. Was immediately replaced currently saturating 88%. Chest x-ray shows extensive worsening bilateral pulmonary edema. Discussed with nephrology emergency hemodialysis with fluid removal and repeat chest x-ray. If clinically and radiologically not improving patient will need to be placed on mechanical ventilatory support. Despite achieving negative balance has bilateral infiltrate indicating possibility of ARDS 09/28: Patient remains on nonrebreather. But slightly improved pattern of breathing. Hemodialysis with 4.2 L removed yesterday. Urine output adequate 1.6 L in 24 hours. Patient better oriented today 09/29: Overall slightly improved tolerating facemask maintaining saturation above 92%. Occasionally confused per night RN. Hemodialysis again yesterday with 3.5 L removed. Chest x-ray overall improved compared to 09/27/2018. The recent increase in the right upper lobe infiltrate on chest x-ray today, but pulmonary edema has certainly improved Objective Vital Signs / I&O: Vital Signs 09/28/18 10:00 09/28/18 12:00 09/28/18 14:00 Temperature 98.8 F Pulse Rate 79 96 H 86 Respiratory Rate 30 H Blood Pressure 134/60 Pulse Oximetry 91 L 09/28/18 14:42 09/28/18 16:00 09/28/18 18:00 Temperature 98.2 F Pulse Rate 81 80 70 Respiratory Rate 21 29 H Blood Pressure 139/65 Pulse Oximetry 98 09/28/18 20:00 09/28/18 20:22 09/28/18 22:00 Temperature 98.9 F Pulse Rate 75 76 78 Respiratory Rate 25 H 24 Blood Pressure 115/56 L Pulse Oximetry 96 95 09/29/18 00:00 09/29/18 02:00 09/29/18 03:52 Temperature 99.6 F Pulse Rate 74 80 113 H Respiratory Rate 27 H 22 Blood Pressure 114/53 L Pulse Oximetry 91 L 09/29/18 04:00 09/29/18 05:58 09/29/18 08:37 Temperature 99 F Pulse Rate 104 H 91 H 86 Respiratory Rate 26 H 20 Blood Pressure 127/59 L Pulse Oximetry 90 L 90 L 09/29/18 09:33 Temperature Pulse Rate Respiratory Rate Blood Pressure Pulse Oximetry 93 L Intake & Output 09/28/18 09/29/18 09/29/18 18:59 06:59 18:59 Intake Total 125 / 125 110 / 110 Output Total 3750 / 3750 300 / 300 Balance -3625 / -3625 -190 / -190 Weight 88.9 kg Intake: IV 125 / 125 50 / 50 Precedex Inj 1,000 MCG In NS Inj 240 ML @ 0.2 MCG/KG/HR 5.36 mls/hr IV.CONT TITRATE PRN Rx# :[id number] Zosyn 3.375 GM Premix 50 ML @ 100 / 100 50 / 50 100 mls/hr IV.SIG Q8H ZEKE Rx#: [id number] Oral 60 / 60 Output: Urine 250 / 250 300 / 300 Hemodialysis Amount 3500 / 3500 Other: # Voids 2 1 Date of Last Bowel Movement 09/28/18 09/28/18 # Bowel Movements 1 Result Diagrams: 09/29/18 03:59 09/29/18 03:59 Objective Remarks: GENERAL: Patient is currently on facemask. SKIN: Warm and dry. HEAD: NCAT EYES: PERRL NECK: Supple, trachea midline. RIJ vasc cath present with some blood on biopatch CARDIOVASCULAR: Irregular rate and rhythm intermittently tachycardic RESPIRATORY: Air entry diminished bilaterally with mild diffuse crackles bilaterally. Scattered rhonchi. GASTROINTESTINAL: Abdomen soft, non-tender, non-distended. MUSCULOSKELETAL: No cyanosis, 1+ pedal edema NEURO: Patient is alert awake oriented to person place and day. Moving all extremities no focal deficits Assessment and Plan - Assessment and Plan Plan: ASSESSMENT 1. Acute hypoxemic respiratory failure 2. Pulmonary edema/congestive heart failure 3. Probable ARDS 4. Left upper lobe pneumonia per CT chest. 5. Acute kidney failure 6. Agitated delirium-improving 7. Coronary artery disease. 8. Diabetes mellitus. 9. Hypertension. 10. Chronic obstructive pulmonary disease. 11. Leukocytosis 12. Transaminitis 13. Acute blood loss anemia 14: Sinus tachycardia with frequent PACs Plan Neuro: Monitor neuro status. Up to chair daily, Haldol 4 mg IV every 6 hours as needed for agitation Continue seroquel BID Pulm: Intubated 09/19 for continued pulmonary edema/ resp distress, extubated 09/25/2018 Pulmonary edema improved after hemodialysis with 4.2 L removed 09/27 and 3.2L 09/28 Possible ARDS cannot be ruled out Bronchodilators with albuterol/ipratropium aerosols every 4 hours with albuterol aerosols every 2 hours as needed dyspnea Prednisone 20 mg twice daily, Symbicort 160/4.5 two puffs b.i.d. Pulm is following-Dr. Garcia Not tolerating BiPAP, but currently respiratory status is improving wean FiO2 as tolerated CV: Cardizem 60 mg QID. continue metoprolol 5 mg IV every 6 hours PRN BP borderline during HD, albumin bolus PRN Echo on 08/30/2018 EF of 50% to 55%, concentric LV hypertrophy. PA pressure 32 mmHg. Bumex 2 mg IV every 12 hours Hemodialysis with 4.2 L removed 09/27 and 3.2L 09/28 : Monitor renal function, I's and O's, and avoid nephrotoxins. Renal US: No masses, no hydronephrosis Continue IV Bumex and IV Diuril Nephrology following (Dr. Krueger), dialysis 09/27, 09/28 ARF likely due to ATN 2nd Vanco tox. GI: on pantoprazole 40 mg IV daily for GI prophylaxis. Clear liquid diets if, patient tolerated Monitor LFT's, US liver showed only ascites ID: s/p 1 week treatment for CAP, afebrile, but persistent leukocytosis worsening with increased infiltrate on chest x-ray Repeat sputum culture, started on Zosyn, renally dosed 09/12: normal resp zeb. Repeat blood and sputum culture. strep pneumonia and legionella urinary antigen negative Heme: Monitor CBC-- Hg stable Monitor RIJ vasc cath for oozing/ bleeding Endo: SSI with aspart insulin to medium scale with Accu-Chek for glycemic control Hold allopurinol until kidney function recovers GI prophylaxis with pantoprazole 40 mg daily DVT prophylaxis with SCD and hold SQH due to hemoptysis OVERALL: This patient remains critically ill extubated 09/25 but worsening respiratory status with increasing pulmonary edema worsening leukocytosis of increasing sputum production. IV Bumex IV Diuril, Zosyn panculture. Emergent hemodialysis with fluid removal again yesterday with slight improvement in respiratory status Level 3
[2018-09-29] MEDS: Chlorothiazide Inj 500 MG Vial IV.PUSH SCH (10:41)
--- NOTE | 2018-09-29 11:47 | P.PNNP ---
Subjective Interval history: Patient is resting comfortably on nasal cannula oxygen Physical Exam Vital signs: Vital Signs 09/28/18 12:00 09/28/18 14:00 09/28/18 14:42 Temperature 98.8 F Pulse Rate 96 H 86 81 Respiratory Rate 30 H 21 Blood Pressure 134/60 Pulse Oximetry 91 L 09/28/18 16:00 09/28/18 18:00 09/28/18 20:00 Temperature 98.2 F 98.9 F Pulse Rate 80 70 75 Respiratory Rate 29 H 25 H Blood Pressure 139/65 115/56 L Pulse Oximetry 98 96 09/28/18 20:22 09/28/18 22:00 09/29/18 00:00 Temperature 99.6 F Pulse Rate 76 78 74 Respiratory Rate 24 27 H Blood Pressure 114/53 L Pulse Oximetry 95 91 L 09/29/18 02:00 09/29/18 03:52 09/29/18 04:00 Temperature 99 F Pulse Rate 80 113 H 104 H Respiratory Rate 22 26 H Blood Pressure 127/59 L Pulse Oximetry 90 L 09/29/18 05:58 09/29/18 08:37 09/29/18 09:33 Temperature Pulse Rate 91 H 86 Respiratory Rate 20 Blood Pressure Pulse Oximetry 90 L 93 L Intake & Output 09/28/18 09/29/18 09/29/18 18:59 06:59 18:59 Intake Total 125 / 125 110 / 110 Output Total 3750 / 3750 300 / 300 Balance -3625 / -3625 -190 / -190 Weight 88.9 kg Intake: IV 125 / 125 50 / 50 Precedex Inj 1,000 MCG In NS Inj 240 ML @ 0.2 MCG/KG/HR 5.36 mls/hr IV.CONT TITRATE PRN Rx# :[id number] Zosyn 3.375 GM Premix 50 ML @ 100 / 100 50 / 50 100 mls/hr IV.SIG Q8H ZEKE Rx#: [id number] Oral 60 / 60 Output: Urine 250 / 250 300 / 300 Hemodialysis Amount 3500 / 3500 Other: # Voids 2 1 Date of Last Bowel Movement 09/28/18 09/28/18 # Bowel Movements 1 Narrative: GENERAL: Well-nourished, Obese patient.No distress SKIN: Warm and dry. HEAD: Normocephalic. EYES: No scleral icterus. No injection or drainage. NECK: Supple, trachea midline. No JVD or lymphadenopathy. Dressing on the right side of neck CARDIOVASCULAR: S1-S2 irregular. RESPIRATORY: Breath sounds equal bilaterally. Diminished breath sounds at bases and mild Wheeze. GASTROINTESTINAL: Abdomen soft, non-tender, nondistended. EXTREMITIES: 1+ edema of legs NEUROLOGICAL: alert and talking. - Urinary Catheter Management Indwelling Urethral Catheter Cath placed during this visit: yes, but has since been removed by the nurse Reason for continuing: Hourly intake/output Insertion date: 09/18/18 Insertion time: 09:00 Removal date: 09/23/18 Removal time: 17:00 Straight Cath placed during this visit: no Assessment and Plan - Assessment (1) Acute renal failure Code(s): N17.9 - Acute kidney failure, unspecified Status: Acute (2) COPD (chronic obstructive pulmonary disease) Code(s): J44.9 - Chronic obstructive pulmonary disease, unspecified Status: Acute (3) Pneumonia Code(s): J18.9 - Pneumonia, unspecified organism Status: Acute (4) Mood disorder due to known physiological condition with depressive features Code(s): F06.31 - Mood disorder due to known physiological condition with depressive features Status: Acute (5) Gout Code(s): M10.9 - Gout, unspecified Status: Acute (6) Hypertension Code(s): I10 - Essential (primary) hypertension Status: Acute - Plan Patient has acute tubular necrosis likely due to vancomycin levels are high Creatinine 2.7 -> 3 -> 3.2 -> 3.3-3.3-3.29-3.30-3.15-3.16-2.78-3.2-3.5 -2.62-- 2.87--2.2--2.29--2.6 hemodialysis: Next treatment likely on Sunday and then Sunday and Sunday Monitor CMP, Monitor intake and output COPD improved Continue to monitor. Continue to monitor next dialysis possibly Sunday
--- NOTE | 2018-09-29 16:32 | P.PN ---
Subjective Interval history: alert nad o2 nc Physical Exam Vital signs: Vital Signs 09/28/18 17:00 09/28/18 17:15 09/28/18 17:30 Temperature Pulse Rate 77 78 77 Respiratory Rate 30 H 29 H 25 H Blood Pressure 111/63 115/62 Pulse Oximetry 94 L 95 96 09/28/18 17:45 09/28/18 18:00 09/28/18 18:15 Temperature Pulse Rate 81 78 70 Respiratory Rate 30 H 30 H 20 Blood Pressure 121/57 L 124/63 116/59 L Pulse Oximetry 87 L 91 L 98 09/28/18 19:00 09/28/18 20:00 09/28/18 20:22 Temperature 98.9 F Pulse Rate 72 75 76 Respiratory Rate 27 H 25 H 24 Blood Pressure 126/58 L 115/56 L Pulse Oximetry 96 96 95 09/28/18 21:00 09/28/18 22:00 09/28/18 23:00 Temperature Pulse Rate 80 78 85 Respiratory Rate 38 H 26 H 30 H Blood Pressure 101/65 104/54 L 105/55 L Pulse Oximetry 86 L 89 L 87 L 09/29/18 00:00 09/29/18 01:00 09/29/18 02:00 Temperature 99.6 F Pulse Rate 74 81 80 Respiratory Rate 27 H 30 H 28 H Blood Pressure 114/53 L 113/56 L 110/56 L Pulse Oximetry 91 L 90 L 92 L 09/29/18 03:00 09/29/18 03:52 09/29/18 04:00 Temperature 99 F Pulse Rate 95 H 113 H 104 H Respiratory Rate 37 H 22 26 H Blood Pressure 109/85 127/59 L Pulse Oximetry 91 L 90 L 09/29/18 05:00 09/29/18 05:58 09/29/18 06:00 Temperature Pulse Rate 83 91 H 81 Respiratory Rate 27 H 27 H Blood Pressure 123/62 126/60 Pulse Oximetry 91 L 93 L 09/29/18 07:00 09/29/18 08:00 09/29/18 08:37 Temperature 98.8 F Pulse Rate 95 H 80 86 Respiratory Rate 24 30 H 20 Blood Pressure 113/74 121/64 Pulse Oximetry 85 L 97 90 L 09/29/18 09:00 09/29/18 09:12 09/29/18 09:33 Temperature Pulse Rate 85 89 Respiratory Rate 29 H 43 H Blood Pressure 129/62 91/52 L Pulse Oximetry 92 L 80 L 93 L 09/29/18 10:00 09/29/18 10:56 09/29/18 11:00 Temperature Pulse Rate 88 81 81 Respiratory Rate 31 H 31 H 31 H Blood Pressure 108/53 L 111/56 L Pulse Oximetry 86 L 90 L 90 L 09/29/18 12:00 09/29/18 13:00 09/29/18 14:00 Temperature Pulse Rate 83 79 84 Respiratory Rate 30 H 29 H 31 H Blood Pressure 117/57 L 99/49 L 113/53 L Pulse Oximetry 94 L 92 L 93 L 09/29/18 14:39 09/29/18 15:00 09/29/18 16:00 Temperature 97.8 F Pulse Rate 86 89 88 Respiratory Rate 24 29 H 30 H Blood Pressure 125/59 L 113/56 L Pulse Oximetry 100 91 L Intake & Output 09/28/18 09/29/18 09/29/18 18:59 06:59 18:59 Intake Total 125 / 125 110 / 110 50 / 50 Output Total 3750 / 3750 300 / 300 Balance -3625 / -3625 -190 / -190 50 / 50 Weight 88.9 kg Intake: IV 125 / 125 50 / 50 50 / 50 Precedex Inj 1,000 MCG In NS Inj 240 ML @ 0.2 MCG/KG/HR 5.36 mls/hr IV.CONT TITRATE PRN Rx# :[id number] Zosyn 3.375 GM Premix 50 ML @ 100 / 100 50 / 50 50 / 50 100 mls/hr IV.SIG Q8H ZEKE Rx#: [id number] Oral 60 / 60 Output: Urine 250 / 250 300 / 300 Hemodialysis Amount 3500 / 3500 Other: # Voids 2 1 Date of Last Bowel Movement 09/28/18 09/28/18 09/28/18 # Bowel Movements 1 Narrative: GENERAL: Well-nourished, Obese patient.No distress SKIN: Warm and dry. HEAD: Normocephalic. EYES: No scleral icterus. No injection or drainage. NECK: Supple, trachea midline. No JVD or lymphadenopathy. Dressing on the right side of neck CARDIOVASCULAR: S1-S2 irregular. RESPIRATORY: Breath sounds equal bilaterally. Diminished breath sounds at bases and mild Wheeze. GASTROINTESTINAL: Abdomen soft, non-tender, nondistended. EXTREMITIES: 1+ edema of legs NEUROLOGICAL: alert and talking. - Urinary Catheter Management Indwelling Urethral Catheter Cath placed during this visit: yes, but has since been removed by the nurse Reason for continuing: Hourly intake/output Insertion date: 09/18/18 Insertion time: 09:00 Removal date: 09/23/18 Removal time: 17:00 Straight Cath placed during this visit: no Results - Labs CBC & Chem 7: 09/29/18 03:59 09/29/18 03:59 Laboratory Results - last 24 hr 09/28/18 09/29/18 09/29/18 17:19 00:22 03:59 WBC 19.9 H RBC 3.08 L Hgb 9.1 L Hct 26.9 L MCV 87.4 MCH 29.5 MCHC 33.7 RDW 18.7 H Plt Count 73 L MPV 9.1 Sodium Potassium Chloride Carbon Dioxide Anion Gap BUN Creatinine Estimated GFR POC Glucose 148 H 172 H Random Glucose Calcium Total Bilirubin AST ALT Alkaline Phosphatase Total Protein Albumin 09/29/18 09/29/18 09/29/18 03:59 05:36 11:50 WBC RBC Hgb Hct MCV MCH MCHC RDW Plt Count MPV Sodium 144 Potassium 3.4 L Chloride 100 Carbon Dioxide 27.3 Anion Gap 17 H BUN 47 H Creatinine 2.60 H Estimated GFR 24 L POC Glucose 282 H 272 H Random Glucose 195 H Calcium 9.0 Total Bilirubin 2.3 H AST 35 ALT 52 Alkaline Phosphatase 65 Total Protein 6.6 D Albumin 4.0 Microbiology 09/26/18 09:25 Blood - Peripheral Aerobic Blood Culture - Final Staphylococcus epidermidis 09/26/18 09:25 Blood - Peripheral Anaerobic Blood Culture - Preliminary No growth in 3 days 09/26/18 09:30 Blood - Peripheral Aerobic Blood Culture - Preliminary No growth in 3 days 09/26/18 09:30 Blood - Peripheral Anaerobic Blood Culture - Preliminary No growth in 3 days - Imaging Impressions Chest X-Ray 09/29/18 06:00 CONCLUSION: Increase in right upper lobe airspace disease over the last day. Left-sided airspace disease stable with small effusions. Assessment and Plan - Plan impression respiratory failure renal failure pna copd plan O2 NEEDED/PAP antibx wean as tolerated
[2018-09-30] MEDS: Insulin NovoLOG Aspart Correctional Sugar Inj SQ SCH ×4 (00:57→18:42)
[2018-09-30] MEDS: Oral Hygiene Kit OROPHARYNG SCH ×5 (00:58→23:45)
[2018-09-30] MEDS: Piperacil/Tazo 3.375 GM Premix 50 ML IV.SIG SCH ×3 (01:02→18:38)
--- NOTE | 2018-09-30 03:50 | XR ---
EXAM DATE: 09/30/2018 3:45 AM EST AGE/SEX: 78 years / Male INDICATIONS: Shortness of breath, possible pulmonary disease. CLINICAL DATA: This is the patient's subsequent encounter. Patient reports that signs and symptoms h ave been present for 2 weeks and indicates a pain score of Nonresponsive. MEDICAL/SURGICAL HISTORY: Chronic obstructive pulmonary disease. Hypertension. Renal failure, acute. None. COMPARISON: [facility] [place]ST 1V SINGLE AP, 09/29/2018. . FINDINGS: Bilateral airspace disease, especially right upper lobe and left base are similar to prior exam on . No significant effusion. No pneumothorax. Right-sided central line unchanged CONCLUSION: Stable bilateral airspace disease. Electronically signed by: Daniel Parada MD 09/30/2018 3:48 AM EST
[2018-09-30 06:00] LABS: Hematocrit 25.8 % (39.0-51.0); Hemoglobin 8.9 gm/dL (13.0-17.0); Mean Corpuscular HGB Conc 34.3 % (32.0-36.0); Mean Corpuscular Hemoglobin 29.7 pg (27.0-34.0); Mean Corpuscular Volume 86.6 fL (80.0-100.0); Mean Platelet Volume 8.8 fL (7.0-11.0); Platelet Count 68 th/mm3 (150-450); Red Blood Count 2.98 mil/mm3 (4.50-5.90); Red Cell Distribution Width 19.2 % (11.6-17.2); White Blood Count 21.3 th/mm3 (4.0-11.0)
[2018-09-30 06:20] LABS: Albumin 3.7 g/dL (3.4-5.0); Anion Gap 13 meq/L (5-15); Aspartate Aminotransferase 23 U/L (15-37); Blood Urea Nitrogen 77 mg/dL (7-18); Calcium 8.8 mg/dL (8.5-10.1); Chloride 102 meq/L (98-107); Glomerular Filtration Rate 13 mL/min (>89); Glucose,Random 187 mg/dL (74-106); Potassium 3.2 meq/L (3.5-5.1); Sodium 142 meq/L (136-145)
[2018-09-30 06:28] LABS: Alanine Aminotransferase 47 U/L (12-78); Alkaline Phosphatase 68 U/L (45-117); Total Protein 6.3 g/dL (6.4-8.2)
[2018-09-30] MEDS: QUEtiapine 25 MG Tablet PO SCH ×2 (08:36→21:00)
[2018-09-30] MEDS: dilTIAZem 60 MG Tablet PO SCH ×4 (08:36→21:00)
[2018-09-30] MEDS: predniSONE 20 MG Tablet PO SCH ×2 (08:36→21:00)
[2018-09-30] MEDS: Chlorhexidine 0.12% Oral Kit 15 ML UDC OROPHARYNG SCH ×2 (08:37→23:44)
[2018-09-30] MEDS: Pantoprazole Inj 40 MG Vial IV.PUSH SCH (08:37)
[2018-09-30] MEDS: Sodium Chloride 0.9% 2 ML Flush BID IV.FLUSH SCH ×2 (08:38→23:45)
[2018-09-30] MEDS: Budesonide-Formoterol 160/4.5 MCG 6 GM Inhaler INH SCH ×2 (08:39→21:00)
[2018-09-30] MEDS: Potassium Chlor 20 mEq Premix 20 MEQ/100 ML PIGGYBACK IV.SIG SCH ×2 (10:15→12:37)
[2018-09-30] MEDS: Chlorothiazide Inj 500 MG Vial IV.PUSH SCH (11:19)
--- NOTE | 2018-09-30 12:28 | P.PN ---
Subjective Interval history: as agitated earlier . Now on O2 5 L. Good O2 sats. No SOB at rest. Physical Exam Vital signs: Vital Signs 09/29/18 13:00 09/29/18 14:00 09/29/18 14:39 Temperature Pulse Rate 79 84 86 Respiratory Rate 29 H 31 H 24 Blood Pressure 99/49 L 113/53 L Pulse Oximetry 92 L 93 L 09/29/18 15:00 09/29/18 16:00 09/29/18 18:00 Temperature 97.8 F Pulse Rate 89 88 85 Respiratory Rate 29 H 30 H Blood Pressure 125/59 L 113/56 L Pulse Oximetry 100 91 L 09/29/18 19:00 09/29/18 20:00 09/29/18 21:00 Temperature 98.0 F Pulse Rate 88 77 147 H Respiratory Rate 35 H 27 H 34 H Blood Pressure 120/56 L 111/56 L 122/60 Pulse Oximetry 94 L 99 98 09/29/18 21:14 09/29/18 22:00 09/30/18 00:00 Temperature 98.9 F Pulse Rate 82 104 H Respiratory Rate 28 H 30 H Blood Pressure 132/64 106/53 L Pulse Oximetry 96 95 96 09/30/18 02:00 09/30/18 03:00 09/30/18 04:00 Temperature 97.7 F Pulse Rate 78 79 83 Respiratory Rate 27 H 28 H Blood Pressure 143/63 H 133/61 Pulse Oximetry 96 96 09/30/18 06:00 09/30/18 08:00 09/30/18 10:00 Temperature 98.0 F Pulse Rate 78 67 77 Respiratory Rate 18 Blood Pressure 113/57 L Pulse Oximetry 94 L 09/30/18 12:00 Temperature Pulse Rate 79 Respiratory Rate Blood Pressure Pulse Oximetry Intake & Output 09/29/18 09/30/18 09/30/18 18:59 06:59 18:59 Intake Total 425 / 425 100 / 100 50 / 50 Output Total 325 / 325 350 / 350 Balance 100 / 100 -250 / -250 50 / 50 Weight 88.2 kg Intake: IV 50 / 50 100 / 100 50 / 50 Zosyn 3.375 GM Premix 50 ML @ 50 / 50 100 / 100 50 / 50 100 mls/hr IV.SIG Q8H [facility] Rx#: [id number] Oral 375 / 375 Output: Urine 325 / 325 350 / 350 Other: Date of Last Bowel Movement 09/28/18 09/29/18 09/30/18 # Bowel Movements 0 Narrative: GENERAL: Well-nourished, Obese patient.No distress SKIN: Warm and dry. HEAD: Normocephalic. EYES: No scleral icterus. No injection or drainage. NECK: Supple, trachea midline. No JVD or lymphadenopathy. CARDIOVASCULAR: S1-S2 irregular. RESPIRATORY: Breath sounds equal bilaterally.Occ Basal crackles. Diminished breath sounds at bases and mild Wheeze. GASTROINTESTINAL: Abdomen soft, non-tender, nondistended. EXTREMITIES:2+ edema of legs NEUROLOGICAL: alert and talking. - Urinary Catheter Management Indwelling Urethral Catheter Cath placed during this visit: yes, but has since been removed by the nurse Reason for continuing: Hourly intake/output Insertion date: 09/18/18 Insertion time: 09:00 Removal date: 09/23/18 Removal time: 17:00 Straight Cath placed during this visit: no Results - Labs CBC & Chem 7: 09/30/18 04:07 09/30/18 04:07 Laboratory Results - last 24 hr 09/29/18 09/30/18 09/30/18 16:36 00:52 04:07 WBC 21.3 H RBC 2.98 L Hgb 8.9 L Hct 25.8 L MCV 86.6 MCH 29.7 MCHC 34.3 RDW 19.2 H Plt Count 68 L MPV 8.8 Sodium Potassium Chloride Carbon Dioxide Anion Gap BUN Creatinine Estimated GFR POC Glucose 272 H 251 H Random Glucose Calcium Total Bilirubin AST ALT Alkaline Phosphatase Total Protein Albumin 09/30/18 09/30/18 04:07 05:23 WBC RBC Hgb Hct MCV MCH MCHC RDW Plt Count MPV Sodium 142 Potassium 3.2 L Chloride 102 Carbon Dioxide 27.0 Anion Gap 13 BUN 77 H Creatinine 4.35 H Estimated GFR 13 L POC Glucose 203 H Random Glucose 187 H Calcium 8.8 Total Bilirubin 2.1 H AST 23 ALT 47 Alkaline Phosphatase 68 Total Protein 6.3 L Albumin 3.7 Microbiology 09/26/18 09:25 Blood - Peripheral Aerobic Blood Culture - Final Staphylococcus epidermidis 09/26/18 09:25 Blood - Peripheral Anaerobic Blood Culture - Preliminary No growth in 4 days 09/26/18 09:30 Blood - Peripheral Aerobic Blood Culture - Preliminary No growth in 4 days 09/26/18 09:30 Blood - Peripheral Anaerobic Blood Culture - Preliminary No growth in 4 days - Imaging Impressions Chest X-Ray 09/30/18 06:00 CONCLUSION: Stable bilateral airspace disease. 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 Acute hypoxemic respiratory failure 2. Left upper lobe pneumonia 3. B/l pulm infiltrates 4. Acute kidney injury. 5. Anemia. 6. Coronary artery disease. 7. Diabetes mellitus. 8. Hypertension. 9. Chronic obstructive pulmonary disease. 10. Obesity. Plan Pulm: 1) Continue with N/C at 5 L. and wean. 2) Dialysis today 3) Cont Antibiotics 4) Cont Duoneb nebs qid. 5) CBC,BMP in am 6) CXR in am. 7) PO diet as tolerated 8) prednisone 10 mg BID
--- NOTE | 2018-09-30 12:42 | P.PNCC ---
Subjective Subjective Remarks/Hospital Course: Patient is a 78-year-old male with a past medical history of ? COPD, hypertension, diabetes mellitus, coronary artery disease and gout. He was admitted to inpatient medication psych on 08/17/2018 for suicidal ideation and acute kidney injury. He was found to have a creatinine of 1.64. During his hospital course, the patient was seen by hospitalist service. He had a chest x- ray on 08/19/2018. At that time it showed mild basilar opacity, probably subsegmental atelectasis with trace pleural fluid. Then, he had a CT scan of the chest on 09/07/2018 which showed suspected left hilar mass, mild congestive heart failure with small bilateral pleural effusions, left upper lobe pneumonia and focal atypical appearing infiltrate in the right middle lobe with dependent atelectasis of both lower lobes. He was started on broad-spectrum antibiotics. The patient had a V/Q scan on 09/08/2018 which showed a low probability for pulmonary embolism. Helicat was called for increased O2 requirements and the patient was subsequently [place] [facility] [place] Care Medicine was consulted for critical care management. When seen, the patient was on partial nonrebreather mask with a saturation of 100%. Blood pressure 151/70 with a pulse of 89. The patient states that he quit smoking over 20 years ago. He does not use any inhalers or nebulizers at home. He denies any nausea, vomiting or abdominal pain. 09/11 Patient is lying in bed in NAD. Afebrile. 09/12 Patient is lying in bed in NAD. On 4L oxygen. Afebrile. Renal function worse today with Cr: 2.70 from 1.81 09/13 Patient is lying in bed in NAD. Afebrile, Renal function is worsening with Cr: 3.04 from 2.70 09/14 Patient dropped his sats overnight placed on partial rebreather, CXR this morning showed b/l pulm infiltrates. Given Lasix 40mg IV x1. Afebrile. 09/15: Afebrile. Lying in bed in no acute distress. Currently on high flow at 90% nasal cannula. 09/16 Patient is on high flow oxygen 30L with 90% FIO2. Afebrile: 09/17 Patient is on 35L high flow oxyge with 60% FIO2. Awake and alert, Afebrile. 09/18: Patient currently more critical FiO2 requirement has increased overnight currently on 90% FiO2 with high flow oxygen to maintain sat above 90%. Chest x- ray shows severe bilateral upper lobe infiltrates with appearance of pulmonary edema. With Bumex IV push patient has urine output more than 2.5 L, however not achieving adequate and negative balance. BUN 18 today with creatinine of 3.3. Will discontinue IV Bumex and start Bumex infusion at 1 mg/h along with IV albumin. 09/19: Agitated overnight. BUN and creatinine unchanged from yesterday. Started on bumex gtt yesterday. It doesn't appear that his urine output was charted during the day shift yesterday but he made 1200 cc of urine overnight and was - 700 cc for the shift. He is currently on high flow 40 L at 100%. Patient states "I want to get out of bed to a chair today". 09/20: Patient continued to have tachypnea and increased work of breathing throughout the morning yesterday, O2 sats stayed around 88-90% on high flow, still wasn't diuresing adequately with bumex/ albumin. He was intubated and and a RIJ vasc cath was placed, received first HD session yesterday afternoon. 09/21: Resting comfortably, no significant overnight events 09/22: Pulmonary edema continues to improve, tolerated spontaneous breathing trial x 2 hours this morning but had an episode of A fib with RVR and appeared anxious. Oozing continues from RIJ vasc cath, will reinforce with suture/ Gelfoam. 09/23: Currently being dialyzed. I placed a suture around the base of the RIJ vasc cath yesterday with Gelfoam reinforcement, less oozing today as per RN. Will attempt SBT after HD. 09/24: ETT exchanged yesterday due to cuff issue, no other overnight events. Tolerated HD yesterday without issue. 09/25: No overnight events. Tolerated spontaneous breathing trial x 1-2 hours yesterday but had to be placed back on AC due to apneic pauses. Continue to aggressively wean vent today. Currently being dialyzed. 09/26: Extubated yesterday currently hypoxic requiring partial nonrebreather. Chest x-ray today shows worsening pulmonary edema especially on the right side. I will start scheduled Lasix 2 mg IV every 12 hours. Nephrology following, will request hemodialysis today due to fluid overload/worsening pulmonary edema. 09/27: Patient remains on nonrebreather, does not tolerate BiPAP. Took a turn for the worse more critical now. When patient removed his partial nonrebreather his oxygen saturation decreased to 60%. Was immediately replaced currently saturating 88%. Chest x-ray shows extensive worsening bilateral pulmonary edema. Discussed with nephrology emergency hemodialysis with fluid removal and repeat chest x-ray. If clinically and radiologically not improving patient will need to be placed on mechanical ventilatory support. Despite achieving negative balance has bilateral infiltrate indicating possibility of ARDS 09/28: Patient remains on nonrebreather. But slightly improved pattern of breathing. Hemodialysis with 4.2 L removed yesterday. Urine output adequate 1.6 L in 24 hours. Patient better oriented today 09/29: Overall slightly improved tolerating facemask maintaining saturation above 92%. Occasionally confused per night RN. Hemodialysis again yesterday with 3.5 L removed. Chest x-ray overall improved compared to 09/27/2018. The recent increase in the right upper lobe infiltrate on chest x-ray today, but pulmonary edema has certainly improved 09/30: Today he appears more comfortable breathing comfortably good oxygen saturation above 95% on nasal cannula. Chest x-ray remains unchanged with bilateral upper lobe infiltrates. Improved compared to several days ago. Urine output adequate but creatinine has bumped to 4. Getting hemodialysis later today. Leukocytosis most likely secondary to steroids no evidence of new infection Objective Vital Signs / I&O: Vital Signs 09/29/18 13:00 09/29/18 14:00 09/29/18 14:39 Temperature Pulse Rate 79 84 86 Respiratory Rate 29 H 31 H 24 Blood Pressure 99/49 L 113/53 L Pulse Oximetry 92 L 93 L 09/29/18 15:00 09/29/18 16:00 09/29/18 18:00 Temperature 97.8 F Pulse Rate 89 88 85 Respiratory Rate 29 H 30 H Blood Pressure 125/59 L 113/56 L Pulse Oximetry 100 91 L 09/29/18 19:00 09/29/18 20:00 09/29/18 21:00 Temperature 98.0 F Pulse Rate 88 77 147 H Respiratory Rate 35 H 27 H 34 H Blood Pressure 120/56 L 111/56 L 122/60 Pulse Oximetry 94 L 99 98 09/29/18 21:14 09/29/18 22:00 09/30/18 00:00 Temperature 98.9 F Pulse Rate 82 104 H Respiratory Rate 28 H 30 H Blood Pressure 132/64 106/53 L Pulse Oximetry 96 95 96 09/30/18 02:00 09/30/18 03:00 09/30/18 04:00 Temperature 97.7 F Pulse Rate 78 79 83 Respiratory Rate 27 H 28 H Blood Pressure 143/63 H 133/61 Pulse Oximetry 96 96 09/30/18 06:00 09/30/18 08:00 09/30/18 10:00 Temperature 98.0 F Pulse Rate 78 67 77 Respiratory Rate 18 Blood Pressure 113/57 L Pulse Oximetry 94 L 09/30/18 12:00 Temperature Pulse Rate 79 Respiratory Rate Blood Pressure Pulse Oximetry Intake & Output 09/29/18 09/30/18 09/30/18 18:59 06:59 18:59 Intake Total 425 / 425 100 / 100 150 / 150 Output Total 325 / 325 350 / 350 Balance 100 / 100 -250 / -250 150 / 150 Weight 88.2 kg Intake: IV 50 / 50 100 / 100 150 / 150 Zosyn 3.375 GM Premix 50 ML @ 50 / 50 100 / 100 50 / 50 100 mls/hr IV.SIG Q8H [facility] Rx#: [id number] KCl 20 mEq Premix Inj 20 meq In 100 / 100 100 ml @ 50 mls/hr IV.SIG Q2H [facility] Rx#:[id number] Oral 375 / 375 Output: Urine 325 / 325 350 / 350 Other: Date of Last Bowel Movement 09/28/18 09/29/18 09/30/18 # Bowel Movements 0 Result Diagrams: 09/30/18 04:07 09/30/18 04:07 Objective Remarks: GENERAL: Patient is currently on facemask. SKIN: Warm and dry. HEAD: NCAT EYES: PERRL NECK: Supple, trachea midline. RIJ vasc cath present CARDIOVASCULAR: Irregular rate and rhythm intermittently tachycardic RESPIRATORY: Air entry diminished bilaterally with mild crackles bilaterally. Scattered rhonchi. GASTROINTESTINAL: Abdomen soft, non-tender, non-distended. MUSCULOSKELETAL: No cyanosis, 1+ pedal edema NEURO: Patient is alert awake oriented to person place and day. Moving all extremities no focal deficits Assessment and Plan - Assessment and Plan Plan: ASSESSMENT 1. Acute hypoxemic respiratory failure-improving 2. Pulmonary edema/congestive heart failure 3. Probable ARDS 4. Left upper lobe pneumonia per CT chest. 5. Acute kidney failure 6. Agitated delirium 7. Coronary artery disease. 8. Diabetes mellitus. 9. Hypertension. 10. Chronic obstructive pulmonary disease. 11. Leukocytosis 12. Transaminitis 13. Acute blood loss anemia 14: Sinus tachycardia with frequent PACs Plan Neuro: Monitor neuro status. Up to chair daily, Haldol 4 mg IV every 6 hours as needed for agitation Continue Seroquel BID Pulm: Intubated 09/19 for continued pulmonary edema/ resp distress, extubated 09/25/2018 Pulmonary edema improving with hemodialysis and aggressive diuresis Possible ARDS cannot be ruled out Bronchodilators with albuterol/ipratropium aerosols every 4 hours with albuterol aerosols every 2 hours as needed dyspnea Prednisone 20 mg twice daily, Symbicort 160/4.5 two puffs b.i.d. Pulm is following-Dr. Garcia Oxygen saturation improving currently on nasal cannula CV: Cardizem 60 mg QID. continue metoprolol 5 mg IV every 6 hours PRN BP borderline during HD, albumin bolus PRN Echo on 08/30/2018 EF of 50% to 55%, concentric LV hypertrophy. PA pressure 32 mmHg. Hemodialysis with 4.2 L removed 09/27 and 3.2L 09/28. Hemodialysis planned for today : Monitor renal function, I's and O's, and avoid nephrotoxins. Renal US: No masses, no hydronephrosis Continue IV Bumex and IV Diuril Nephrology following (Dr. Krueger), dialysis 09/27, 09/28 ARF likely due to ATN 2nd Vanco tox. GI: on pantoprazole 40 mg IV daily for GI prophylaxis. Advance diet as tolerated Monitor LFT's, US liver showed only ascites ID: s/p 1 week treatment for CAP, afebrile, but persistent leukocytosis worsening with increased infiltrate on chest x-ray Repeat sputum culture, continue Zosyn renally dosed 09/12: normal resp zeb. Repeat blood and sputum culture. strep pneumonia and legionella urinary antigen negative Heme: Monitor CBC-- Hg stable Monitor RIJ vasc cath for oozing/ bleeding Endo: SSI with aspart insulin to medium scale with Accu-Chek for glycemic control Hold allopurinol until kidney function recovers GI prophylaxis with pantoprazole 40 mg daily DVT prophylaxis with SCD and hold SQH due to hemoptysis level 2 Consult hospitalist to assume care in a.m. 10/01/2018. Transferred to [facility] with telemetry
[2018-09-30] MEDS: Heparin 10,000 UNITS/10 ML Vial (for IV use) OTHER PRN (16:05)
--- NOTE | 2018-09-30 16:10 | P.PNNP ---
Subjective Interval history: Patient is agitated seen during hemodialysis Physical Exam Vital signs: Vital Signs 09/29/18 18:00 09/29/18 19:00 09/29/18 20:00 Temperature 98.0 F Pulse Rate 85 88 77 Respiratory Rate 35 H 27 H Blood Pressure 120/56 L 111/56 L Pulse Oximetry 94 L 99 09/29/18 21:00 09/29/18 21:14 09/29/18 22:00 Temperature Pulse Rate 147 H 82 Respiratory Rate 34 H 28 H Blood Pressure 122/60 132/64 Pulse Oximetry 98 96 95 09/30/18 00:00 09/30/18 02:00 09/30/18 03:00 Temperature 98.9 F Pulse Rate 104 H 78 79 Respiratory Rate 30 H 27 H Blood Pressure 106/53 L 143/63 H Pulse Oximetry 96 96 09/30/18 04:00 09/30/18 06:00 09/30/18 08:00 Temperature 97.7 F 98.0 F Pulse Rate 83 78 67 Respiratory Rate 28 H 18 Blood Pressure 133/61 113/57 L Pulse Oximetry 96 94 L 09/30/18 10:00 09/30/18 12:00 Temperature Pulse Rate 77 79 Respiratory Rate Blood Pressure Pulse Oximetry Intake & Output 09/29/18 09/30/18 09/30/18 18:59 06:59 18:59 Intake Total 425 / 425 100 / 100 150 / 150 Output Total 325 / 325 350 / 350 Balance 100 / 100 -250 / -250 150 / 150 Weight 88.2 kg Intake: IV 50 / 50 100 / 100 150 / 150 Zosyn 3.375 GM Premix 50 ML @ 50 / 50 100 / 100 50 / 50 100 mls/hr IV.SIG Q8H [facility] Rx#: [id number] KCl 20 mEq Premix Inj 20 meq In 100 / 100 100 ml @ 50 mls/hr IV.SIG Q2H [facility] Rx#:[id number] Oral 375 / 375 Output: Urine 325 / 325 350 / 350 Other: Date of Last Bowel Movement 09/28/18 09/29/18 09/30/18 # Bowel Movements 0 Narrative: GENERAL: Well-nourished, Obese patient.No distress SKIN: Warm and dry. HEAD: Normocephalic. EYES: No scleral icterus. No injection or drainage. NECK: Supple, trachea midline. No JVD or lymphadenopathy. CARDIOVASCULAR: S1-S2 irregular. RESPIRATORY: Breath sounds equal bilaterally.Occ Basal crackles. Diminished breath sounds at bases and mild Wheeze. GASTROINTESTINAL: Abdomen soft, non-tender, nondistended. EXTREMITIES:2+ edema of legs NEUROLOGICAL: alert and talking. - Urinary Catheter Management Indwelling Urethral Catheter Cath placed during this visit: yes, but has since been removed by the nurse Reason for continuing: Hourly intake/output Insertion date: 09/18/18 Insertion time: 09:00 Removal date: 09/23/18 Removal time: 17:00 Straight Cath placed during this visit: no Assessment and Plan - Assessment (1) Acute renal failure Code(s): N17.9 - Acute kidney failure, unspecified Status: Acute (2) COPD (chronic obstructive pulmonary disease) Code(s): J44.9 - Chronic obstructive pulmonary disease, unspecified Status: Acute (3) Pneumonia Code(s): J18.9 - Pneumonia, unspecified organism Status: Acute (4) Mood disorder due to known physiological condition with depressive features Code(s): F06.31 - Mood disorder due to known physiological condition with depressive features Status: Acute (5) Gout Code(s): M10.9 - Gout, unspecified Status: Acute (6) Hypertension Code(s): I10 - Essential (primary) hypertension Status: Acute - Plan Patient has acute tubular necrosis likely due to vancomycin levels are high Creatinine 2.7 -> 3 -> 3.2 -> 3.3-3.3-3.29-3.30-3.15-3.16-2.78-3.2-3.5 -2.62-- 2.87--2.2--2.29--2.6--4.3 hemodialysis: patient is seen during hemodialysis 2.5 L of UF he was at times screaming during dialysis however his condition was, at the starting of dialysis and this morning also he acted the same Monitor CMP, Monitor intake and output Discontinued Diuril COPD improved Continue to monitor. Continue to monitor next dialysis MW
[2018-10-01] MEDS: Insulin NovoLOG Aspart Correctional Sugar Inj SQ SCH ×4 (00:08→17:34)
[2018-10-01] MEDS: Piperacil/Tazo 3.375 GM Premix 50 ML IV.SIG SCH ×3 (01:21→17:31)
[2018-10-01] MEDS: Oral Hygiene Kit OROPHARYNG SCH ×3 (04:05→15:04)
[2018-10-01] MEDS: Chlorhexidine 0.12% Oral Kit 15 ML UDC OROPHARYNG SCH ×2 (09:42→21:43)
[2018-10-01] MEDS: QUEtiapine 25 MG Tablet PO SCH ×2 (09:49→21:43)
[2018-10-01] MEDS: predniSONE 20 MG Tablet PO SCH (09:49)
[2018-10-01] MEDS: dilTIAZem 60 MG Tablet PO SCH ×4 (09:49→21:43)
[2018-10-01] MEDS: Sodium Chloride 0.9% 2 ML Flush BID IV.FLUSH SCH ×2 (09:49→21:44)
[2018-10-01] MEDS: Pantoprazole Inj 40 MG Vial IV.PUSH SCH (09:50)
[2018-10-01] MEDS: Budesonide-Formoterol 160/4.5 MCG 6 GM Inhaler INH SCH ×2 (09:50→21:44)
--- NOTE | 2018-10-01 11:39 | P.PNNP ---
Subjective Interval history: Patient is resting comfortably denies shortness of breath on nasal cannula Physical Exam Vital signs: Vital Signs 09/30/18 12:00 09/30/18 14:00 09/30/18 16:00 Temperature 98.1 F 98.0 F Pulse Rate 80 80 80 Respiratory Rate 17 18 Blood Pressure 124/85 121/59 L Pulse Oximetry 99 100 09/30/18 18:00 09/30/18 19:00 09/30/18 19:55 Temperature Pulse Rate 80 Respiratory Rate Blood Pressure Pulse Oximetry 99 97 09/30/18 20:00 10/01/18 00:00 10/01/18 04:00 Temperature 97.6 F 97.9 F 97.7 F Pulse Rate 83 84 84 Respiratory Rate 28 H 30 H 32 H Blood Pressure 119/61 125/59 L 133/63 Pulse Oximetry 98 99 94 L 10/01/18 07:00 10/01/18 08:00 Temperature Pulse Rate Respiratory Rate Blood Pressure Pulse Oximetry 97 97 Intake & Output 09/30/18 10/01/18 10/01/18 18:59 06:59 18:59 Intake Total 250 / 250 450 / 450 50 / 50 Output Total 2550 / 2550 0 / 0 Balance -2300 / -2300 450 / 450 50 / 50 Weight 88.2 kg Intake: IV 200 / 200 150 / 150 50 / 50 Zosyn 3.375 GM Premix 50 ML @ 100 / 100 50 / 50 50 / 50 100 mls/hr IV.SIG Q8H [facility] Rx#: [id number] KCl 20 mEq Premix Inj 20 meq In 100 / 100 100 ml @ 50 mls/hr IV.SIG Q2H [facility] Rx#:[id number] Oral 50 / 50 300 / 300 Output: Urine 50 / 50 0 / 0 Hemodialysis Amount 2500 / 2500 Other: Date of Last Bowel Movement 09/30/18 09/30/18 # Bowel Movements 1 0 Narrative: GENERAL: Well-nourished, Obese patient.No distress SKIN: Warm and dry. HEAD: Normocephalic. EYES: No scleral icterus. No injection or drainage. NECK: Supple, trachea midline. No JVD or lymphadenopathy. CARDIOVASCULAR: S1-S2 irregular. RESPIRATORY: Breath sounds equal bilaterally.Occ Basal crackles. Diminished breath sounds at bases and mild Wheeze. GASTROINTESTINAL: Abdomen soft, non-tender, nondistended. EXTREMITIES:2+ edema of legs NEUROLOGICAL: alert and talking. - Urinary Catheter Management Indwelling Urethral Catheter Cath placed during this visit: yes, but has since been removed by the nurse Reason for continuing: Hourly intake/output Insertion date: 09/18/18 Insertion time: 09:00 Removal date: 09/23/18 Removal time: 17:00 Straight Cath placed during this visit: no Assessment and Plan - Assessment (1) Acute renal failure Code(s): N17.9 - Acute kidney failure, unspecified Status: Acute (2) COPD (chronic obstructive pulmonary disease) Code(s): J44.9 - Chronic obstructive pulmonary disease, unspecified Status: Acute (3) Pneumonia Code(s): J18.9 - Pneumonia, unspecified organism Status: Acute (4) Mood disorder due to known physiological condition with depressive features Code(s): F06.31 - Mood disorder due to known physiological condition with depressive features Status: Acute (5) Gout Code(s): M10.9 - Gout, unspecified Status: Acute (6) Hypertension Code(s): I10 - Essential (primary) hypertension Status: Acute - Plan Patient has acute tubular necrosis likely due to vancomycin levels are high Creatinine 2.7 -> 3 -> 3.2 -> 3.3-3.3-3.29-3.30-3.15-3.16-2.78-3.2-3.5 -2.62-- 2.87--2.2--2.29--2.6--4.3 hemodialysis: Patient is doing better remains on dialysis on Sunday and Sunday Monitor BMP, white cell count is high Monitor intake and output COPD improved Continue to monitor. Continue to monitor next dialysis MWF
--- NOTE | 2018-10-01 12:56 | P.PN ---
Subjective Interval history: Resting well and On O2 4 L. was dialyzed. No fever. Physical Exam Vital signs: Vital Signs 09/30/18 14:00 09/30/18 16:00 09/30/18 18:00 Temperature 98.0 F Pulse Rate 80 80 80 Respiratory Rate 18 Blood Pressure 121/59 L Pulse Oximetry 100 09/30/18 19:00 09/30/18 19:55 09/30/18 20:00 Temperature 97.6 F Pulse Rate 83 Respiratory Rate 28 H Blood Pressure 119/61 Pulse Oximetry 99 97 98 10/01/18 00:00 10/01/18 04:00 10/01/18 07:00 Temperature 97.9 F 97.7 F Pulse Rate 84 84 Respiratory Rate 30 H 32 H Blood Pressure 125/59 L 133/63 Pulse Oximetry 99 94 L 97 10/01/18 08:00 10/01/18 12:00 Temperature 96.9 F L 98.5 F Pulse Rate 157 H 75 Respiratory Rate 22 21 Blood Pressure 132/64 114/57 L Pulse Oximetry 98 99 Intake & Output 09/30/18 10/01/18 10/01/18 18:59 06:59 18:59 Intake Total 250 / 250 450 / 450 50 / 50 Output Total 2550 / 2550 0 / 0 Balance -2300 / -2300 450 / 450 50 / 50 Weight 88.2 kg Intake: IV 200 / 200 150 / 150 50 / 50 Zosyn 3.375 GM Premix 50 ML @ 100 / 100 50 / 50 50 / 50 100 mls/hr IV.SIG Q8H ZEKE Rx#: [id number] KCl 20 mEq Premix Inj 20 meq In 100 / 100 100 ml @ 50 mls/hr IV.SIG Q2H ZEKE Rx#:[id number] Oral 50 / 50 300 / 300 Output: Urine 50 / 50 0 / 0 Hemodialysis Amount 2500 / 2500 Other: Date of Last Bowel Movement 09/30/18 09/30/18 09/30/18 # Bowel Movements 1 0 Narrative: GENERAL: Elderly Obese patient.No distress SKIN: Warm and dry. HEAD: Normocephalic. EYES: No scleral icterus. No injection or drainage. NECK: Supple, trachea midline. No JVD or lymphadenopathy. CARDIOVASCULAR: S1-S2 irregular. RESPIRATORY: Breath sounds equal bilaterally.Occ Basal crackles. Diminished breath sounds at bases and mild Wheeze. GASTROINTESTINAL: Abdomen soft, non-tender, nondistended. EXTREMITIES:1+ edema of legs NEUROLOGICAL: No focal deficits - Urinary Catheter Management Indwelling Urethral Catheter Cath placed during this visit: yes, but has since been removed by the nurse Reason for continuing: Hourly intake/output Insertion date: 09/18/18 Insertion time: 09:00 Removal date: 09/23/18 Removal time: 17:00 Straight Cath placed during this visit: no Results - Labs CBC & Chem 7: 09/30/18 04:07 09/30/18 04:07 Laboratory Results - last 24 hr 09/30/18 10/01/18 10/01/18 18:42 00:08 05:07 POC Glucose 136 H 232 H 221 H 10/01/18 11:45 POC Glucose 139 H Microbiology 09/26/18 09:25 Blood - Peripheral Aerobic Blood Culture - Final Staphylococcus epidermidis 09/26/18 09:25 Blood - Peripheral Anaerobic Blood Culture - Final No growth in 5 days 09/26/18 09:30 Blood - Peripheral Aerobic Blood Culture - Final No growth in 5 days 09/26/18 09:30 Blood - Peripheral Anaerobic Blood Culture - Final No growth in 5 days Assessment and Plan - Assessment (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 Acute hypoxemic respiratory failure resolving 2. Left upper lobe pneumonia 3. B/l pulm infiltrates 4. Acute kidney injury. 5. Anemia. 6. Coronary artery disease. 7. Diabetes mellitus. 8. Hypertension. 9. Chronic obstructive pulmonary disease. 10. Obesity. Plan Pulm: 1) Continue with N/C at 3 L. and wean. 2) Dialysis in am 3) Cont Antibiotics 4) Cont Duoneb nebs qid. 5) CBC,BMP in am 6) PT evaluation 7) PO diet as tolerated 8) prednisone 10 mg daily
--- NOTE | 2018-10-01 14:27 | P.DIET ---
Nutritional Evaluation Type of nutrition evaluation: follow-up Nutrition consult regarding: Tube Feeding Screening comments: 09/20 TF review Objective - Diagnosis respiratory distress - Objective % IBW: 132 Body Weight Used for Calculations: IBW Energy Needs - Lower Range (kCal/kg): 28 Energy Needs - Upper Range (kCal/kg): 32 Lower Limit kCal/kg (kCals): 1,680 Upper Limit kCal/kg (kCals): 1,920 Lower Limit Protein Factor (Grams per Kg): 1.2 Upper Limit Protein Factor (Grams per Kg): 1.5 Lower Protein Needs (Protein): 72 Upper Protein Needs (Protein): 90 Dietitian Reviewed in Medical Record: Curent medications, Intake & Output, Labs , Medical history, Tube feeding Diet Order: NPO, TF Objective Comments: PMH: DM, gout, heart disease, hypokalemia MedS: fentanyl, epogen, vit B12 Labs: BUN 77, Cr 4.35, GFR 13, POC glucose 203 136 139 Feeding - Current Tube Feeding Tube Feeding Product: Nepro Tube Feeding Rate: 45 Assessment Assessment: Pt extubated on 09/25, continuing w/ dialysis (every Sunday, Sunday, Sunday) . Pt currently receiving Nepro 1.8 @ 45mL/hr continuous via OGT. Pts nutritional recs revised, continue Nepro 1.8 @ 45mL/hr. Continue to monitor TF tolerance and renal labs. Labs reviewed, dietitian following. Additional recs to follow r/t medical course. Recommendations: 1. Continue TF'ing w/ Nepro 1.8 @ 45mL/hr to best meet pts nutritional needs 2. Monitor TF tolerance and renal labs 3. Dietitian following 4. Additional recs to follow r/t medical course Dietitian to Monitor: Lab values, Renal labs, Intake & Output, Tube feeding tolerance, Weight change, Swallow recommendations, Medical course
--- NOTE | 2018-10-01 19:10 | P.PNIM ---
Subjective Interval history: Patient is laying down in bed. No acute distress. Complains of on and off shortness of breath. Comfortable currently on 5L oxygen. Physical Exam Vital signs: Vital Signs 09/30/18 19:00 09/30/18 19:55 09/30/18 20:00 Temperature 97.6 F Pulse Rate 83 Respiratory Rate 28 H Blood Pressure 119/61 Pulse Oximetry 99 97 98 10/01/18 00:00 10/01/18 04:00 10/01/18 07:00 Temperature 97.9 F 97.7 F Pulse Rate 84 84 Respiratory Rate 30 H 32 H Blood Pressure 125/59 L 133/63 Pulse Oximetry 99 94 L 97 10/01/18 08:00 10/01/18 12:00 10/01/18 16:00 Temperature 96.9 F L 98.5 F 97.7 F Pulse Rate 157 H 75 80 Respiratory Rate 22 21 35 H Blood Pressure 132/64 114/57 L 129/58 L Pulse Oximetry 98 99 96 Intake & Output 09/30/18 10/01/18 10/01/18 18:59 06:59 18:59 Intake Total 250 / 250 450 / 450 200 / 200 Output Total 2550 / 2550 0 / 0 50 / 50 Balance -2300 / -2300 450 / 450 150 / 150 Weight 88.2 kg Intake: IV 200 / 200 150 / 150 100 / 100 Zosyn 3.375 GM Premix 50 ML @ 100 / 100 50 / 50 100 / 100 100 mls/hr IV.SIG Q8H ZEKE Rx#: [id number] KCl 20 mEq Premix Inj 20 meq In 100 / 100 100 ml @ 50 mls/hr IV.SIG Q2H ZEKE Rx#:[id number] Oral 50 / 50 300 / 300 100 / 100 Output: Urine 50 / 50 0 / 0 50 / 50 Hemodialysis Amount 2500 / 2500 Other: # Voids 1 Date of Last Bowel Movement 09/30/18 09/30/18 09/30/18 # Bowel Movements 1 0 0 Narrative: A and O x 3 EOMI, clear oral pharyngeal mucosa. atraumatic, trialysis catheter in place. S1 S2 B/L rhonchi soft, non tender, normal bowel sounds no edema of the lower extremities Neuro exam, pt moves all 4 exts, sensation intact b/l - Urinary Catheter Management Indwelling Urethral Catheter Cath placed during this visit: yes, but has since been removed by the nurse Reason for continuing: Hourly intake/output Insertion date: 09/18/18 Insertion time: 09:00 Removal date: 09/23/18 Removal time: 17:00 Straight Cath placed during this visit: no Results - Labs CBC & Chem 7: 09/30/18 04:07 09/30/18 04:07 Laboratory Results - last 24 hr 10/01/18 10/01/18 10/01/18 00:08 05:07 11:45 POC Glucose 232 H 221 H 139 H 10/01/18 17:30 POC Glucose 204 H Microbiology 09/26/18 09:25 Blood - Peripheral Aerobic Blood Culture - Final Staphylococcus epidermidis 09/26/18 09:25 Blood - Peripheral Anaerobic Blood Culture - Final No growth in 5 days 09/26/18 09:30 Blood - Peripheral Aerobic Blood Culture - Final No growth in 5 days 09/26/18 09:30 Blood - Peripheral Anaerobic Blood Culture - Final No growth in 5 days Assessment and Plan - Plan This patient is a 78-year-old male with a diagnosis of COPD, hypertension, diabetes mellitus, coronary artery disease, and gout. The patient was initially admitted to the inpatient psych unit in mid August 2018 for suicidal ideation and acute kidney injury. The patient had a CT scan of the chest in early September which showed suspected left hilar mass and mild congestive heart failure with trace bilateral pleural effusions. He was also found to have a left upper lobe pneumonia as well as a questionable infiltrate in the right middle lobe. Patient was started on broad-spectrum antibiotics. During hospitalization he had a CAT was called as the patient was found to be hypoxic and was requiring supplemental oxygen. The patient's bilateral infiltrates got worse during the hospitalization and the patient was subsequently intubated. The patient's kidney function also continue to get worse during the hospitalization, he was also started on hemodialysis which is being continued on Sunday and Fridays. 1. Acute hypoxic respiratory failure secondary to left upper lobe pneumonia and pulmonary edema. As mentioned above the patient was intubated, status post extubation successfully. Patient is currently on submental oxygen, currently he is on 5 L of supplemental oxygen. Continue antibiotics. Pulmonary is following the patient as well. We will continue to follow up with the recommendations. We will continue to wean the patient off of supplemental oxygen. Continue DuoNeb treatments 4 times daily. Chest x-ray in the a.m. ordered. Continue prednisone 10 mg daily. Infectious disease will be consulted. 2. Hypertension Continue current blood pressure medication regimen. Systolic blood pressure currently in the 120s. 3. Coronary artery disease Patient is a diagnosis of coronary artery disease, currently the patient is not on aspirin. Aspirin will be added to the patient's medication regimen. 4. Acute kidney injury, now on hemodialysis Patient currently on hemodialysis. Nephrology is following the patient. Continue hemodialysis on Wednesdays and Fridays.
--- NOTE | 2018-10-01 19:52 | XR ---
EXAM DATE: 10/01/2018 7:49 PM EST AGE/SEX: 78 years / Male INDICATIONS: Cough. CLINICAL DATA: This is the patient's initial encounter. Patient reports that signs and symptoms have been present for 3 days and indicates a pain score of 4/10. MEDICAL/SURGICAL HISTORY: . Chronic obstructive pulmonary disease. Hypertension. Renal failure , acute. None. None. COMPARISON: [facility] [place], CHEST 1V SINGLE AP, 09/30/2018. . FINDINGS: Stable right-sided temporary dialysis catheter. Improved patchy bilateral upper lobe airspace disease with slightly more confluent airspace consolidation in the left lower lung zone. Cardiomediastinal c ontours are within normal limits given portable technique. Remainder of the exam is unchanged. CONCLUSION: 1. Improved patchy bilateral upper lobe airspace disease. 2. More confluent airspace consolidation in the left lower lung zone. Electronically signed by: Feliberto Aden MD 10/01/2018 7:51 PM EST
[2018-10-02] MEDS: Oral Hygiene Kit OROPHARYNG SCH ×4 (02:06→15:14)
[2018-10-02] MEDS: Piperacil/Tazo 3.375 GM Premix 50 ML IV.SIG SCH ×2 (03:24→14:26)
[2018-10-02] MEDS: Insulin NovoLOG Aspart Correctional Sugar Inj SQ SCH ×4 (03:24→18:44)
--- NOTE | 2018-10-02 10:08 | P.CONID ---
History of Present Illness Service: Infectious Disease Consult date: 10/02/18 Requesting Physician: Nancy Ortega Reason for Consult: Evaluate patient with persistent pulmonary infiltrates Primary Care Provider: UNKNOWN History of Present Illness: Patient seen and examined. Records reviewed. Patient is a 78-year-old male, initially admitted in the psychiatric unit where he was admitted for suicidal ideation. This was August 17. While he was there , the hospitalist evaluated the patient and subsequently has been found to have some abnormal chest x-ray findings. He underwent CT of the chest on September 07 which showed suspected left hilar mass, mild congestive heart failure, and small bilateral pleural effusion, with left upper lobe pneumonia and an atypical infiltrate in the right middle lobe with dependent atelectasis of both lower lobes. VQ scan showed low probability for pulmonary embolism. He had more respiratory problem, and he was transferred to the intensive care unit and admitted to the main hospital on September 10. Patient was started on treatment for pneumonia, as well as COPD. He has a questionable history of COPD. While in the hospital he had increasing creatinine, and nephrology saw the patient and felt that he had acute tubular necrosis which possibly could be related to vancomycin. His respiratory status deteriorated, and he ended up requiring intubation on September 19. At the same time his chest x-ray was worsening, with worsening renal function, and he was started on hemodialysis at the same time. He has been getting hemodialysis since. On September 25 he was extubated. Overall his respiratory status has improved, and chest x-ray infiltrates have also improved except in the bases. His O2 requirement has improved and he is currently on 2 L of nasal O2. His last hemodialysis was on September 30. Patient has received broad-spectrum antibiotics, and completed treatment for pneumonia. On September 26 however he had some problems pulmonary bardales, and his antibiotic was restarted. He is currently on Zosyn. His sputum cultures have grown normal respiratory zeb. His blood cultures have been negative. His white count has been persistently elevated. Patient has not been febrile. Patient currently is awake and alert. He looks somewhat frail, and has a moist weak cough. He is afebrile. His hemodynamics are stable. His last chest x- rays from October 01 which showed improved infiltrates and some more confluent infiltrates in the left base. Infectious disease consultation has been requested to evaluate the patient with persistent infiltrates on chest x-ray. Review of Systems Constitutional: Reports lack of energy, Denies chills, Denies fever(s) Eyes: Denies discharge, Denies dry eyes Ears, Nose, Mouth, and Throat: Denies difficulty swallowing, Denies ear pain, Denies facial pain, Denies headache(s), Denies mouth pain, Denies pain with swallowing, Denies sore throat Cardiovascular: Reports shortness of breath, Denies chest pain Respiratory: Reports cough, Reports shortness of breath Gastrointestinal: Denies abdominal pain, Denies nausea, Denies pain with swallowing, Denies vomiting Genitourinary: Denies painful urination Musculoskeletal: Denies joint pain, Denies joint swelling Skin/Breast: Denies sores, Denies wounds PMFSH - History History Provided By: Patient - Medical History Medical History: Medical History (Last Reviewed 10/02/18 @ 10:03 by Briana Snell MD) Diabetes Gout Heart disease Hypokalemia - Family History Family History: Family History (Last Reviewed 10/02/18 @ 10:03 by Briana Snell MD) Other Family history non-contributory - Tobacco History Second Hand Smoke Exposure: No Tobacco Use In Past 30 Days: No Smoking Status: Former smoker Tobacco Type: Cigarettes, Cigars - Alcohol History How Often Do You Have a Drink Containing Alcohol: Never - Substance Use History Substance History: No History of Abuse - Immunization History Tetanus Immunization: >5 Years Hx Influenza Vaccine This Season: Yes Medications and Allergies Active Medications: Active Medications Acetaminophen (Tylenol) 650 mg PO UNSCH PRN PRN Reason: SEE LABEL COMMENTS Al Hydroxide/Mg Hydroxide (Milk Of [place] Dow) 30 ml PO Q12H PRN PRN Reason: Mild Constipation Albuterol (Albuterol Neb (Prn)) 2.5 mg NEB Q2HR NEB PRN PRN Reason: DYSPNEA Allopurinol (Zyloprim) 100 mg PO DAILY [facility] Last Admin: 09/19/18 08:41 Dose: 100 mg Aspirin (Aspirin Chew) 81 mg PO DAILY [facility] Bisacodyl (Dulcolax Supp) 10 mg RECTAL DAILY PRN PRN Reason: SEVERE CONSITIPATION Budesonide/Formoterol Fumarate (Symbicort 160/4.5 Mcg Inh) 2 puff INH BID [facility] Last Admin: 10/01/18 21:44 Dose: 2 puff Bumetanide (Bumex Inj) 2 mg IV.PUSH BID@0900,1800 [facility] Last Admin: 10/01/18 17:34 Dose: 2 mg Chlorhexidine Gluconate (Peridex 0.12% Oral Kit) 15 ml OROPHARYNG BID@0800, 2000 [facility] Last Admin: 10/01/18 21:43 Dose: Not Given Clonidine HCl (Catapres) 0.1 mg PO UNSCH PRN PRN Reason: SEE LABEL COMMENTS Cyanocobalamin (Vitamin B12) 100 mcg PO DAILY [facility] Last Admin: 10/01/18 09:49 Dose: 100 mcg Dextrose (D50w Vial) 50 ml IV.PUSH UNSCH PRN PRN Reason: PER HYPOGLYCEMIA PROTOCOL Diltiazem HCl (Cardizem) 60 mg PO QID [facility] Last Admin: 10/01/18 21:43 Dose: 60 mg Diphenhydramine HCl (Benadryl) 25 mg PO UNSCH PRN PRN Reason: SEE LABEL COMMENTS Epoetin Jd (Epogen Inj) 4,000 unit IV.PUSH UNSCH PRN PRN Reason: SEE LABEL COMMENTS Last Admin: 09/30/18 16:04 Dose: 4,000 unit Gelatin (Gelfoam 12 Mm/7 Mm Topical) 1 foam TOPICAL PRN PRN PRN Reason: help stop bleeding from site Last Admin: 09/23/18 23:49 Dose: 1 foam Gentamicin Sulfate (Gentamicin Inj) 20 mg OTHER WITH DIALYSIS PRN PRN Reason: Dwell Gentamycin Lock Last Admin: 09/30/18 16:05 Dose: 20 mg Glucagon (Glucagon Inj) 1 mg OTHER UNSCH PRN PRN Reason: for Hypoglycemia Protocol Haloperidol Lactate (Haldol Inj) 4 mg IV.PUSH Q6H PRN PRN Reason: AGITATION Heparin Sodium (Porcine) (Heparin Inj) 5,000 units SQ Q12H [facility] Last Admin: 09/25/18 22:42 Dose: 5,000 units Heparin Sodium (Porcine) (Heparin Inj) 8,000 units OTHER WITH DIALYSIS PRN PRN Reason: for machine prime Heparin Sodium (Porcine) (Heparin Inj) 1,000 units OTHER WITH DIALYSIS PRN PRN Reason: Dwell Heparin to Fill Catheter Last Admin: 09/30/18 16:05 Dose: 1,000 units Albumin Human (Flexbumin 25% Inj) 100 mls @ 60 mls/hr IV.SIG WITH DIALYSIS PRN PRN Reason: hypotension / volume replace Last Infusion: 09/27/18 09:23 Dose: Infused Sodium Chloride (Ns Inj) 1,000 mls @ 0 mls/hr OTHER .Q0M PRN PRN Reason: for prime and rinse back Sodium Chloride (Ns Inj) 1,000 mls @ 0 mls/hr IV.CONT .Q0M PRN PRN Reason: hypotension / volume replace Piperacillin/Tazobactam/Dextrose (Zosyn 3.375 Gm Premix) 50 mls @ 100 mls/hr IV.SIG Q8H [facility] Last Infusion: 10/02/18 05:28 Dose: Infused Insulin Aspart (Novolog Insulin [place]al Sugar Inj) 0 unit SQ Q6HR [facility]; Protocol Last Admin: 10/02/18 07:36 Dose: 2 unit Lactulose (Lactulose Liq) 30 ml PO DAILY PRN PRN Reason: SEVERE CONSITIPATION Mannitol (Mannitol Inj) 12.5 gm IV.PUSH UNSCH PRN PRN Reason: hypotension / volume replace Metoprolol Tartrate (Lopressor Inj) 5 mg IV.PUSH Q6H PRN PRN Reason: SBP>180, DBP>100, HR>65 Miscellaneous Medication () 1 each OROPHARYNG 0000,0400,1200,1600 [facility] Last Admin: 10/02/18 05:28 Dose: Not Given Nitroglycerin (Nitrostat Sl) 0.4 mg SL Q5M PRN PRN Reason: CHEST PAIN Ondansetron HCl (Zofran Inj) 4 mg IV.PUSH UNSCH PRN PRN Reason: NAUSEA OR VOMITING Pantoprazole Sodium (Protonix Inj) 40 mg IV.PUSH DAILY [facility] Last Admin: 10/01/18 09:50 Dose: 40 mg Prednisone (Deltasone) 10 mg PO DAILY [facility] Quetiapine Fumarate (Seroquel) 25 mg PO BID [facility] Last Admin: 10/01/18 21:43 Dose: 25 mg Sennosides (Senokot) 17.2 mg PO Q12H PRN PRN Reason: Moderate Constipation Sodium Chloride ([place] Nasal [place]) 2 spray EACH NARE Q4H PRN PRN Reason: SECRETIONS Last Admin: 09/17/18 08:18 Dose: 2 spray Sodium Chloride (Ns Flush) 5 ml IV.FLUSH PRN PRN PRN Reason: flush each lumen during HD Sodium Chloride (Ns Flush) 2 ml IV.FLUSH BID [facility] Last Admin: 10/01/18 21:44 Dose: 2 ml Sodium Chloride (Ns Flush) 2 ml IV.FLUSH PRN PRN PRN Reason: FLUSH AFTER USING IV ACCESS Last Admin: 09/28/18 01:23 Dose: 2 ml Tamsulosin HCl (Flomax) 0.4 mg PO DAILY [facility] Last Admin: 10/01/18 09:49 Dose: 0.4 mg Allergies Allergy/AdvReac Type Severity Reaction Status Date / Time No Known Allergies Allergy Unverified 08/17/18 00:48 Home Medications Medication Instructions Recorded Confirmed Type amoxicillin-pot clavulanate 1 tab PO Q12H 08/17/18 08/17/18 History [Augmentin] cefdinir 300 mg PO Q12H 08/17/18 08/17/18 History doxycycline hyclate [Vibramycin] 100 mg PO BID 08/17/18 08/17/18 History hydrocodone-acetaminophen 1 tab PO BID PRN 08/17/18 08/17/18 History insulin glargine [Lantus U-100 7 unit SUBCUT DAILY 08/17/18 08/17/18 History Insulin] lisinopril 40 mg PO BID 08/20/18 08/20/18 History Exam Vital signs: Vital Signs 10/01/18 12:00 10/01/18 16:00 10/01/18 19:00 Temperature 98.5 F 97.7 F Pulse Rate 75 80 Respiratory Rate 21 35 H Blood Pressure 114/57 L 129/58 L Pulse Oximetry 99 96 100 10/01/18 19:31 10/01/18 20:00 10/02/18 00:00 Temperature 97.4 F L 98.4 F 98.5 F Pulse Rate 78 79 84 Respiratory Rate 22 20 18 Blood Pressure 125/70 122/69 128/69 Pulse Oximetry 98 100 100 10/02/18 04:00 10/02/18 05:50 10/02/18 08:00 Temperature 98.3 F 97.5 F L Pulse Rate 81 73 Respiratory Rate 16 18 Blood Pressure 119/66 127/65 Pulse Oximetry 100 99 99 Intake & Output 10/01/18 10/02/18 10/02/18 18:59 06:59 18:59 Intake Total 200 / 200 530 / 530 Output Total 50 / 50 0 / 0 Balance 150 / 150 530 / 530 Weight 85.5 kg Intake: IV 100 / 100 50 / 50 Zosyn 3.375 GM Premix 50 ML @ 100 / 100 50 / 50 100 mls/hr IV.SIG Q8H [facility] Rx#: [id number] Oral 100 / 100 480 / 480 Output: Urine 50 / 50 0 / 0 Other: # Voids 1 Date of Last Bowel Movement 09/30/18 09/30/18 # Bowel Movements 0 0 Narrative: Physical examination GENERAL: Patient is a well-nourished, well-developed male, awake and alert, looks weak, mild RD at rest SKIN: Cool and dry. No generalized rash, no ecchymoses and no evidence of embolic lesions. HEAD: Atraumatic. Normocephalic. No temporal wasting, or tenderness. EYES: [place] conjunctiva. No petechia or hemorrhage. Pupils equal, round and reactive to light. Extraocular movements full and intact. No scleral icterus. No injection or drainage. EARS, NOSE AND THROAT: Nose without bleeding or purulent nasal discharge. No sinus tenderness. Mucous membranes slightly dry, he keeps his mouth open. NECK: Trachea midline. Supple and not tender, no meningeal signs CARDIOVASCULAR: Regular rate and rhythm. Soft murmur at the base of the heart RESPIRATORY: Breath sounds equal bilaterally. Decreased breath sounds at the bases ABDOMEN: Soft, non-tender, nondistended. Bowel sounds present and normoactive. No guarding. No rebound. No organomegaly. EXTREMITIES: No clubbing, cyanosis, or edema. No joint effusion, has good ROM. No calf tenderness. Well perfused and warm. NEUROLOGICAL: Awake and alert. Cranial nerves grossly intact. Motor grossly within normal limits. PSYCHIATRIC: Normal affect, calm and cooperative. LINE: No evidence of infection Results - Labs CBC & Chem 7: 09/30/18 04:07 09/30/18 04:07 Labs: Laboratory Results - last 24 hr 10/01/18 10/01/18 10/02/18 11:45 17:30 02:18 POC Glucose 139 H 204 H 222 H 10/02/18 05:33 POC Glucose 199 H - Imaging Impressions Chest X-Ray 10/01/18 00:00 CONCLUSION: 1. Improved patchy bilateral upper lobe airspace disease. 2. More confluent airspace consolidation in the left lower lung zone. Abdomen/Bladder Ultrasound 09/11/18 00:00 CONCLUSION: 1. Increased renal cortical echogenicity characteristic of chronic parenchymal disease. 2. No evidence of hydronephrosis. 3. No suspicious masses identified. Liver Ultrasound 09/17/18 00:00 CONCLUSION: 1. There is a trace amount of ascites identified around the liver and spleen. 2. There is a small amount of pericholecystic fluid but no significant gallbladder wall thickening. This may represent ascites. 3. Echogenic debris in the dependent portion of the gallbladder. 4. Heterogeneous echotexture of the liver Assessment and Plan - Plan Impression Bilateral pulmonary infiltrates, improving - has been treated for PNA - has been trated for acute pulmonary edema - clinically better, and on nasal 2, decreasing O2 requirement S/P respiratory failure Acute renal failure, ATN ?due to V[place], on HD Persistent leukocytosis Recommendation Stop Abx Check UA and C/S Monitor off Abx Steroids being D/C Monitor for S/Sxs of new infection I will follow along with you Thank you for this consultation
[2018-10-02] MEDS: Pantoprazole Inj 40 MG Vial IV.PUSH SCH (10:11)
[2018-10-02] MEDS: predniSONE 10 MG Tablet PO SCH (10:12)
[2018-10-02] MEDS: QUEtiapine 25 MG Tablet PO SCH ×2 (10:12→22:10)
[2018-10-02] MEDS: dilTIAZem 60 MG Tablet PO SCH ×4 (10:12→22:10)
[2018-10-02] MEDS: Chlorhexidine 0.12% Oral Kit 15 ML UDC OROPHARYNG SCH ×2 (10:13→22:11)
[2018-10-02] MEDS: Sodium Chloride 0.9% 2 ML Flush BID IV.FLUSH SCH ×2 (10:13→22:11)
[2018-10-02] MEDS: Budesonide-Formoterol 160/4.5 MCG 6 GM Inhaler INH SCH ×2 (10:13→22:11)
--- NOTE | 2018-10-02 12:17 | P.PNIM ---
Subjective Interval history: Subjective Remarks/Hospital Course: Patient is a 78-year-old male with a past medical history of ? COPD, hypertension, diabetes mellitus, coronary artery disease and gout. He was admitted to inpatient medication psych on 08/17/2018 for suicidal ideation and acute kidney injury. He was found to have a creatinine of 1.64. During his hospital course, the patient was seen by hospitalist service. He had a chest x- ray on 08/19/2018. At that time it showed mild basilar opacity, probably subsegmental atelectasis with trace pleural fluid. Then, he had a CT scan of the chest on 09/07/2018 which showed suspected left hilar mass, mild congestive heart failure with small bilateral pleural effusions, left upper lobe pneumonia and focal atypical appearing infiltrate in the right middle lobe with dependent atelectasis of both lower lobes. He was started on broad-spectrum antibiotics. The patient had a V/Q scan on 09/08/2018 which showed a low probability for pulmonary embolism. Helicat was called for increased O2 requirements and the patient was subsequently transferred to [facility] [place] and Critical Care Medicine was consulted for critical care management. When seen, the patient was on partial nonrebreather mask with a saturation of 100%. Blood pressure 151/70 with a pulse of 89. The patient states that he quit smoking over 20 years ago. He does not use any inhalers or nebulizers at home. He denies any nausea, vomiting or abdominal pain. 09/11 Patient is lying in bed in NAD. Afebrile. 09/12 Patient is lying in bed in NAD. On 4L oxygen. Afebrile. Renal function worse today with Cr: 2.70 from 1.81 09/13 Patient is lying in bed in NAD. Afebrile, Renal function is worsening with Cr: 3.04 from 2.70 09/14 Patient dropped his sats overnight placed on partial rebreather, CXR this morning showed b/l pulm infiltrates. Given Lasix 40mg IV x1. Afebrile. 09/15: Afebrile. Lying in bed in no acute distress. Currently on high flow at 90% nasal cannula. 09/16 Patient is on high flow oxygen 30L with 90% FIO2. Afebrile: 09/17 Patient is on 35L high flow oxyge with 60% FIO2. Awake and alert, Afebrile. 09/18: Patient currently more critical FiO2 requirement has increased overnight currently on 90% FiO2 with high flow oxygen to maintain sat above 90%. Chest x- ray shows severe bilateral upper lobe infiltrates with appearance of pulmonary edema. With Bumex IV push patient has urine output more than 2.5 L, however not achieving adequate and negative balance. BUN 18 today with creatinine of 3.3. Will discontinue IV Bumex and start Bumex infusion at 1 mg/h along with IV albumin. 09/19: Agitated overnight. BUN and creatinine unchanged from yesterday. Started on bumex gtt yesterday. It doesn't appear that his urine output was charted during the day shift yesterday but he made 1200 cc of urine overnight and was - 700 cc for the shift. He is currently on high flow 40 L at 100%. Patient states "I want to get out of bed to a chair today". 09/20: Patient continued to have tachypnea and increased work of breathing throughout the morning yesterday, O2 sats stayed around 88-90% on high flow, still wasn't diuresing adequately with bumex/ albumin. He was intubated and and a RIJ vasc cath was placed, received first HD session yesterday afternoon. 09/21: Resting comfortably, no significant overnight events 09/22: Pulmonary edema continues to improve, tolerated spontaneous breathing trial x 2 hours this morning but had an episode of A fib with RVR and appeared anxious. Oozing continues from RIJ vasc cath, will reinforce with suture/ Gelfoam. 09/23: Currently being dialyzed. I placed a suture around the base of the RIJ vasc cath yesterday with Gelfoam reinforcement, less oozing today as per RN. Will attempt SBT after HD. 09/24: ETT exchanged yesterday due to cuff issue, no other overnight events. Tolerated HD yesterday without issue. 09/25: No overnight events. Tolerated spontaneous breathing trial x 1-2 hours yesterday but had to be placed back on AC due to apneic pauses. Continue to aggressively wean vent today. Currently being dialyzed. 09/26: Extubated yesterday currently hypoxic requiring partial nonrebreather. Chest x-ray today shows worsening pulmonary edema especially on the right side. I will start scheduled Lasix 2 mg IV every 12 hours. Nephrology following, will request hemodialysis today due to fluid overload/worsening pulmonary edema. 09/27: Patient remains on nonrebreather, does not tolerate BiPAP. Took a turn for the worse more critical now. When patient removed his partial nonrebreather his oxygen saturation decreased to 60%. Was immediately replaced currently saturating 88%. Chest x-ray shows extensive worsening bilateral pulmonary edema. Discussed with nephrology emergency hemodialysis with fluid removal and repeat chest x-ray. If clinically and radiologically not improving patient will need to be placed on mechanical ventilatory support. Despite achieving negative balance has bilateral infiltrate indicating possibility of ARDS 09/28: Patient remains on nonrebreather. But slightly improved pattern of breathing. Hemodialysis with 4.2 L removed yesterday. Urine output adequate 1.6 L in 24 hours. Patient better oriented today 09/29: Overall slightly improved tolerating facemask maintaining saturation above 92%. Occasionally confused per night RN. Hemodialysis again yesterday with 3.5 L removed. Chest x-ray overall improved compared to 09/27/2018. The recent increase in the right upper lobe infiltrate on chest x-ray today, but pulmonary edema has certainly improved 09/30: Today he appears more comfortable breathing comfortably good oxygen saturation above 95% on nasal cannula. Chest x-ray remains unchanged with bilateral upper lobe infiltrates. Improved compared to several days ago. Urine output adequate but creatinine has bumped to 4. Getting hemodialysis later today. Leukocytosis most likely secondary to steroids no evidence of new infection 10-01 TRANSFERRED TO OUR SERVICE TODAY Patient is laying down in bed. No acute distress. Complains of on and off shortness of breath. Comfortable currently on 5L oxygen. 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 Physical Exam Vital signs: Vital Signs 10/01/18 16:00 10/01/18 19:00 10/01/18 19:31 Temperature 97.7 F 97.4 F L Pulse Rate 80 78 Respiratory Rate 35 H 22 Blood Pressure 129/58 L 125/70 Pulse Oximetry 96 100 98 10/01/18 20:00 10/02/18 00:00 10/02/18 04:00 Temperature 98.4 F 98.5 F 98.3 F Pulse Rate 79 84 81 Respiratory Rate 20 18 16 Blood Pressure 122/69 128/69 119/66 Pulse Oximetry 100 100 100 10/02/18 05:50 10/02/18 08:00 Temperature 97.5 F L Pulse Rate 73 Respiratory Rate 18 Blood Pressure 127/65 Pulse Oximetry 99 99 Intake & Output 10/01/18 10/02/18 10/02/18 18:59 06:59 18:59 Intake Total 200 / 200 530 / 530 Output Total 50 / 50 0 / 0 Balance 150 / 150 530 / 530 Weight 85.5 kg Intake: IV 100 / 100 50 / 50 Zosyn 3.375 GM Premix 50 ML @ 100 / 100 50 / 50 100 mls/hr IV.SIG Q8H ZEKE Rx#: [id number] Oral 100 / 100 480 / 480 Output: Urine 50 / 50 0 / 0 Other: # Voids 1 Date of Last Bowel Movement 09/30/18 09/30/18 # Bowel Movements 0 0 Narrative: Physical examination GENERAL: Patient is a well-nourished, well-developed male, awake and alert, looks weak, mild RD at rest SKIN: Cool and dry. No generalized rash, no ecchymoses and no evidence of embolic lesions. HEAD: Atraumatic. Normocephalic. No temporal wasting, or tenderness. EYES: [place] conjunctiva. No petechia or hemorrhage. Pupils equal, round and reactive to light. Extraocular movements full and intact. No scleral icterus. No injection or drainage. EARS, NOSE AND THROAT: Nose without bleeding or purulent nasal discharge. No sinus tenderness. Mucous membranes slightly dry, he keeps his mouth open. NECK: Trachea midline. Supple and not tender, no meningeal signs CARDIOVASCULAR: Regular rate and rhythm. Soft murmur at the base of the heart RESPIRATORY: Breath sounds equal bilaterally. Decreased breath sounds at the bases COARSE BS BL ABDOMEN: Soft, non-tender, nondistended. Bowel sounds present and normoactive. No guarding. No rebound. No organomegaly. EXTREMITIES: No clubbing, cyanosis, or edema. No joint effusion, has good ROM. No calf tenderness. Well perfused and warm. NEUROLOGICAL: Awake and alert. Cranial nerves grossly intact. Motor grossly within normal limits. PSYCHIATRIC: Normal affect, calm and cooperative. LINE: No evidence of infection - Urinary Catheter Management Indwelling Urethral Catheter Cath placed during this visit: yes, but has since been removed by the nurse Reason for continuing: Hourly intake/output Insertion date: 09/18/18 Insertion time: 09:00 Removal date: 09/23/18 Removal time: 17:00 Straight Cath placed during this visit: no Results - Labs CBC & Chem 7: 09/30/18 04:07 09/30/18 04:07 Laboratory Results - last 24 hr 10/01/18 10/02/18 10/02/18 17:30 02:18 05:33 POC Glucose 204 H 222 H 199 H 10/02/18 12:01 POC Glucose 342 H Microbiology 09/26/18 09:25 Blood - Peripheral Aerobic Blood Culture - Final Staphylococcus epidermidis 09/26/18 09:25 Blood - Peripheral Anaerobic Blood Culture - Final No growth in 5 days 09/26/18 09:30 Blood - Peripheral Aerobic Blood Culture - Final No growth in 5 days 09/26/18 09:30 Blood - Peripheral Anaerobic Blood Culture - Final No growth in 5 days - Imaging Impressions Chest X-Ray 10/01/18 00:00 CONCLUSION: 1. Improved patchy bilateral upper lobe airspace disease. 2. More confluent airspace consolidation in the left lower lung zone. - Procedures Date of procedure: 09/19/18 Pre-op diagnosis: pulmonary edema, acute kidney failure Post-op diagnosis: same Procedure: Endotracheal intubation The patient provided verbal consent for this procedure. His O2 sats were 88-90% on high flow nasal cannula and he had not improved from a respiratory standpoint with diuresis. He required placement of a vasc cath for initiation of hemodialysis and would not tolerate lying flat without significant O2 desaturation. The decision was made to intubate him for airway protection and invasive ventilatory support of acute hypoxic respiratory failure. A time out was called and the patient was identified by wrist band. A rapid sequence intubation was performed with etomidate, rocuronium, and an 8-0 ETT was easily passed on first attempt using Glidescope. Position was confirmed by bilateral breath sounds, color change capnometry, and improvement in O2 sats. Surgeon: Sierra Cohn Condition: stable Disposition: ICU Documented By: Sierra Cohn DO Date of procedure: 09/19/18 Pre-op diagnosis: pulmonary edema, acute renal failure Post-op diagnosis: same Procedure: Vascular catheter placement for initiation of hemodialysis The patient provided verbal consent for this procedure. He has persistent pulmonary edema and acute kidney injury which has not improved with diuresis. The decision was made to place a vasc cath for HD to assist with fluid removal. A time out was called and the patient was identified by wrist band. He was prepped with chlorhexidine and allowed to full dry, then a full-body sterile drape was applied. I wore full sterile gown, gloves, face mask, and hat. The right IJ was visualized under ultrasound guidance and 5 cc of 1% lidocaine without epinephrine was given for local anesthesia. The vessel was then accessed using Seldinger technique and serially dilated. The catheter was then placed without difficulty and blood flow returned from both lumens, flushed with saline. The catheter was sutured in place and a Biopatch and sterile dressing were applied. The patient tolerated the procedure well with no immediate complications. Surgeon: Sierra Cohn Condition: stable Disposition: ICU Documented By: Sierra Cohn DO AND STARTED ON HD Assessment and Plan - Plan ASSESSMENT 1. Acute hypoxemic respiratory failure-improving 2. Pulmonary edema/congestive heart failure 3. Probable ARDS 4. Left upper lobe pneumonia per CT chest. 5. Acute kidney failure 6. Agitated delirium 7. Coronary artery disease. CONTINUE ON ASPIRIN 8. Diabetes mellitus. 9. Hypertension. 10. Chronic obstructive pulmonary disease. 11. Leukocytosis 12. Transaminitis 13. Acute blood loss anemia 14: Sinus tachycardia with frequent PACs Plan This patient is a 78-year-old male with a diagnosis of COPD, hypertension, diabetes mellitus, coronary artery disease, and gout. The patient was initially admitted to the inpatient psych unit in mid August 2018 for suicidal ideation and acute kidney injury. The patient had a CT scan of the chest in early September which showed suspected left hilar mass and mild congestive heart failure with trace bilateral pleural effusions. He was also found to have a left upper lobe pneumonia as well as a questionable infiltrate in the right middle lobe. Patient was started on broad-spectrum antibiotics. During hospitalization he had a CAT was called as the patient was found to be hypoxic and was requiring supplemental oxygen. The patient's bilateral infiltrates got worse during the hospitalization and the patient was subsequently intubated. The patient's kidney function also continue to get worse during the hospitalization, he was also started on hemodialysis which is being continued on Sunday and Fridays. Neuro: Monitor neuro status. Up to chair daily, Haldol 4 mg IV every 6 hours as needed for agitation Continue Seroquel BID Pulm: Intubated 09/19 for continued pulmonary edema/ resp distress, extubated 09/25/2018 Pulmonary edema improving with hemodialysis and aggressive diuresis Possible ARDS cannot be ruled out Bronchodilators with albuterol/ipratropium aerosols every 4 hours with albuterol aerosols every 2 hours as needed dyspnea Prednisone 20 mg twice daily, Symbicort 160/4.5 two puffs b.i.d. Pulm is following-Dr. Garcia Oxygen saturation improving currently on nasal cannula CV: Cardizem 60 mg QID. continue metoprolol 5 mg IV every 6 hours PRN BP borderline during HD, albumin bolus PRN Echo on 08/30/2018 EF of 50% to 55%, concentric LV hypertrophy. PA pressure 32 mmHg. Hemodialysis with 4.2 L removed 09/27 and 3.2L 09/28. Hemodialysis planned for today : Monitor renal function, I's and O's, and avoid nephrotoxins. Renal US: No masses, no hydronephrosis Continue IV Bumex and IV Diuril Nephrology following (Dr. Krueger), dialysis 09/27, 09/28 ARF likely due to ATN 2nd Vanco tox. GI: on pantoprazole 40 mg IV daily for GI prophylaxis. Advance diet as tolerated Monitor LFT's, US liver showed only ascites ID: s/p 1 week treatment for CAP, afebrile, but persistent leukocytosis worsening with increased infiltrate on chest x-ray Repeat sputum culture, continue Zosyn renally dosed 09/12: normal resp zeb. Repeat blood and sputum culture. strep pneumonia and legionella urinary antigen negative Heme: Monitor CBC-- Hg stable Monitor RIJ vasc cath for oozing/ bleeding Endo: SSI with aspart insulin to medium scale with Accu-Chek for glycemic control Hold allopurinol until kidney function recovers GI prophylaxis with pantoprazole 40 mg daily DVT prophylaxis with SCD and hold SQH due to hemoptysis Code Status: FULL CODE Discussed Condition With: RN AND PT AND CM Discharge Planning: TRANSFER TO [facility] WHEN ARRANGEMENTS ARE MADE
--- NOTE | 2018-10-02 12:28 | P.DS ---
Date of admission: 09/10/18 16:12 Primary care physician: UNKNOWN Attending physician on discharge: Norbert Kay Anticipated date of discharge: 10/02/18 Brief History from admission: Patient is a 78-year-old male with a past medical history of ? COPD, hypertension, diabetes mellitus, coronary artery disease and gout. He was admitted to inpatient medication psych on 08/17/2018 for suicidal ideation and acute kidney injury. He was found to have a creatinine of 1.64. During his hospital course, the patient was seen by hospitalist service. He had a chest x- ray on 08/19/2018. At that time it showed mild basilar opacity, probably subsegmental atelectasis with trace pleural fluid. Then, he had a CT scan of the chest on 09/07/2018 which showed suspected left hilar mass, mild congestive heart failure with small bilateral pleural effusions, left upper lobe pneumonia and focal atypical appearing infiltrate in the right middle lobe with dependent atelectasis of both lower lobes. He was started on broad-spectrum antibiotics. The patient had a V/Q scan on 09/08/2018 which showed a low probability for pulmonary embolism. Helicat was called for increased O2 requirements and the patient was subsequently transferred to [facility] and Critical Care Medicine was consulted for critical care management. When seen, the patient was on partial nonrebreather mask with a saturation of 100%. Blood pressure 151/70 with a pulse of 89. The patient states that he quit smoking over 20 years ago. He does not use any inhalers or nebulizers at home. He denies any nausea, vomiting or abdominal pain. 09/11 Patient is lying in bed in NAD. Afebrile. 09/12 Patient is lying in bed in NAD. On 4L oxygen. Afebrile. Renal function worse today with Cr: 2.70 from 1.81 09/13 Patient is lying in bed in NAD. Afebrile, Renal function is worsening with Cr: 3.04 from 2.70 09/14 Patient dropped his sats overnight placed on partial rebreather, CXR this morning showed b/l pulm infiltrates. Given Lasix 40mg IV x1. Afebrile. 09/15: Afebrile. Lying in bed in no acute distress. Currently on high flow at 90% nasal cannula. 09/16 Patient is on high flow oxygen 30L with 90% FIO2. Afebrile: 09/17 Patient is on 35L high flow oxyge with 60% FIO2. Awake and alert, Afebrile. 09/18: Patient currently more critical FiO2 requirement has increased overnight currently on 90% FiO2 with high flow oxygen to maintain sat above 90%. Chest x- ray shows severe bilateral upper lobe infiltrates with appearance of pulmonary edema. With Bumex IV push patient has urine output more than 2.5 L, however not achieving adequate and negative balance. BUN 18 today with creatinine of 3.3. Will discontinue IV Bumex and start Bumex infusion at 1 mg/h along with IV albumin. 09/19: Agitated overnight. BUN and creatinine unchanged from yesterday. Started on bumex gtt yesterday. It doesn't appear that his urine output was charted during the day shift yesterday but he made 1200 cc of urine overnight and was - 700 cc for the shift. He is currently on high flow 40 L at 100%. Patient states "I want to get out of bed to a chair today". 09/20: Patient continued to have tachypnea and increased work of breathing throughout the morning yesterday, O2 sats stayed around 88-90% on high flow, still wasn't diuresing adequately with bumex/ albumin. He was intubated and and a RIJ vasc cath was placed, received first HD session yesterday afternoon. 09/21: Resting comfortably, no significant overnight events 09/22: Pulmonary edema continues to improve, tolerated spontaneous breathing trial x 2 hours this morning but had an episode of A fib with RVR and appeared anxious. Oozing continues from RIJ vasc cath, will reinforce with suture/ Gelfoam. 09/23: Currently being dialyzed. I placed a suture around the base of the RIJ vasc cath yesterday with Gelfoam reinforcement, less oozing today as per RN. Will attempt SBT after HD. 09/24: ETT exchanged yesterday due to cuff issue, no other overnight events. Tolerated HD yesterday without issue. 09/25: No overnight events. Tolerated spontaneous breathing trial x 1-2 hours yesterday but had to be placed back on AC due to apneic pauses. Continue to aggressively wean vent today. Currently being dialyzed. 09/26: Extubated yesterday currently hypoxic requiring partial nonrebreather. Chest x-ray today shows worsening pulmonary edema especially on the right side. I will start scheduled Lasix 2 mg IV every 12 hours. Nephrology following, will request hemodialysis today due to fluid overload/worsening pulmonary edema. 09/27: Patient remains on nonrebreather, does not tolerate BiPAP. Took a turn for the worse more critical now. When patient removed his partial nonrebreather his oxygen saturation decreased to 60%. Was immediately replaced currently saturating 88%. Chest x-ray shows extensive worsening bilateral pulmonary edema. Discussed with nephrology emergency hemodialysis with fluid removal and repeat chest x-ray. If clinically and radiologically not improving patient will need to be placed on mechanical ventilatory support. Despite achieving negative balance has bilateral infiltrate indicating possibility of ARDS 09/28: Patient remains on nonrebreather. But slightly improved pattern of breathing. Hemodialysis with 4.2 L removed yesterday. Urine output adequate 1.6 L in 24 hours. Patient better oriented today 09/29: Overall slightly improved tolerating facemask maintaining saturation above 92%. Occasionally confused per night RN. Hemodialysis again yesterday with 3.5 L removed. Chest x-ray overall improved compared to 09/27/2018. The recent increase in the right upper lobe infiltrate on chest x-ray today, but pulmonary edema has certainly improved 09/30: Today he appears more comfortable breathing comfortably good oxygen saturation above 95% on nasal cannula. Chest x-ray remains unchanged with bilateral upper lobe infiltrates. Improved compared to several days ago. Urine output adequate but creatinine has bumped to 4. Getting hemodialysis later today. Leukocytosis most likely secondary to steroids no evidence of new infection 10-01 TRANSFERRED TO OUR SERVICE TODAY Patient is laying down in bed. No acute distress. Complains of on and off shortness of breath. Comfortable currently on 5L oxygen. 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 COPD, hypertension, diabetes mellitus, coronary artery disease and gout. He was admitted to inpatient medication psych on 08/17/2018 for suicidal ideation and acute kidney injury. He was found to have a creatinine of 1.64. During his hospital course, the patient was seen by hospitalist service. He had a chest x- ray on 08/19/2018. At that time it showed mild basilar opacity, probably subsegmental atelectasis with trace pleural fluid. Then, he had a CT scan of the chest on 09/07/2018 which showed suspected left hilar mass, mild congestive heart failure with small bilateral pleural effusions, left upper lobe pneumonia and focal atypical appearing infiltrate in the right middle lobe with dependent atelectasis of both lower lobes. He was started on broad-spectrum antibiotics. The patient had a V/Q scan on 09/08/2018 which showed a low probability for pulmonary embolism. Helicat was called for increased O2 requirements and the patient was subsequently transferred to [facility] and Critical Care Medicine was consulted for critical care management. When seen, the patient was on partial nonrebreather mask with a saturation of 100%. Blood pressure 151/70 with a pulse of 89. The patient states that he quit smoking over 20 years ago. He does not use any inhalers or nebulizers at home. He denies any nausea, vomiting or abdominal pain. 09/11 Patient is lying in bed in NAD. Afebrile. 09/12 Patient is lying in bed in NAD. On 4L oxygen. Afebrile. Renal function worse today with Cr: 2.70 from 1.81 09/13 Patient is lying in bed in NAD. Afebrile, Renal function is worsening with Cr: 3.04 from 2.70 09/14 Patient dropped his sats overnight placed on partial rebreather, CXR this morning showed b/l pulm infiltrates. Given Lasix 40mg IV x1. Afebrile. 09/15: Afebrile. Lying in bed in no acute distress. Currently on high flow at 90% nasal cannula. 09/16 Patient is on high flow oxygen 30L with 90% FIO2. Afebrile: 09/17 Patient is on 35L high flow oxyge with 60% FIO2. Awake and alert, Afebrile. 09/18: Patient currently more critical FiO2 requirement has increased overnight currently on 90% FiO2 with high flow oxygen to maintain sat above 90%. Chest x- ray shows severe bilateral upper lobe infiltrates with appearance of pulmonary edema. With Bumex IV push patient has urine output more than 2.5 L, however not achieving adequate and negative balance. BUN 18 today with creatinine of 3.3. Will discontinue IV Bumex and start Bumex infusion at 1 mg/h along with IV albumin. 09/19: Agitated overnight. BUN and creatinine unchanged from yesterday. Started on bumex gtt yesterday. It doesn't appear that his urine output was charted during the day shift yesterday but he made 1200 cc of urine overnight and was - 700 cc for the shift. He is currently on high flow 40 L at 100%. Patient states "I want to get out of bed to a chair today". 09/20: Patient continued to have tachypnea and increased work of breathing throughout the morning yesterday, O2 sats stayed around 88-90% on high flow, still wasn't diuresing adequately with bumex/ albumin. He was intubated and and a RIJ vasc cath was placed, received first HD session yesterday afternoon. 09/21: Resting comfortably, no significant overnight events 09/22: Pulmonary edema continues to improve, tolerated spontaneous breathing trial x 2 hours this morning but had an episode of A fib with RVR and appeared anxious. Oozing continues from RIJ vasc cath, will reinforce with suture/ Gelfoam. 09/23: Currently being dialyzed. I placed a suture around the base of the RIJ vasc cath yesterday with Gelfoam reinforcement, less oozing today as per RN. Will attempt SBT after HD. 09/24: ETT exchanged yesterday due to cuff issue, no other overnight events. Tolerated HD yesterday without issue. 09/25: No overnight events. Tolerated spontaneous breathing trial x 1-2 hours yesterday but had to be placed back on AC due to apneic pauses. Continue to aggressively wean vent today. Currently being dialyzed. 09/26: Extubated yesterday currently hypoxic requiring partial nonrebreather. Chest x-ray today shows worsening pulmonary edema especially on the right side. I will start scheduled Lasix 2 mg IV every 12 hours. Nephrology following, will request hemodialysis today due to fluid overload/worsening pulmonary edema. 09/27: Patient remains on nonrebreather, does not tolerate BiPAP. Took a turn for the worse more critical now. When patient removed his partial nonrebreather his oxygen saturation decreased to 60%. Was immediately replaced currently saturating 88%. Chest x-ray shows extensive worsening bilateral pulmonary edema. Discussed with nephrology emergency hemodialysis with fluid removal and repeat chest x-ray. If clinically and radiologically not improving patient will need to be placed on mechanical ventilatory support. Despite achieving negative balance has bilateral infiltrate indicating possibility of ARDS 09/28: Patient remains on nonrebreather. But slightly improved pattern of breathing. Hemodialysis with 4.2 L removed yesterday. Urine output adequate 1.6 L in 24 hours. Patient better oriented today 09/29: Overall slightly improved tolerating facemask maintaining saturation above 92%. Occasionally confused per night RN. Hemodialysis again yesterday with 3.5 L removed. Chest x-ray overall improved compared to 09/27/2018. The recent increase in the right upper lobe infiltrate on chest x-ray today, but pulmonary edema has certainly improved 09/30: Today he appears more comfortable breathing comfortably good oxygen saturation above 95% on nasal cannula. Chest x-ray remains unchanged with bilateral upper lobe infiltrates. Improved compared to several days ago. Urine output adequate but creatinine has bumped to 4. Getting hemodialysis later today. Leukocytosis most likely secondary to steroids no evidence of new infection 10-01 TRANSFERRED TO OUR SERVICE TODAY Patient is laying down in bed. No acute distress. Complains of on and off shortness of breath. Comfortable currently on 5L oxygen. 10-02 HAS BEEN ACCEPT AT [facility] WILL TRANSFER TO THERE FOR AGGRESSIVE REHAB AND HD DK RN AND PT AND TOOL BUILDER DC THERE TODAY ASSESSMENT 1. Acute hypoxemic respiratory failure-improving 2. Pulmonary edema/congestive heart failure 3. Probable ARDS 4. Left upper lobe pneumonia per CT chest. 5. Acute kidney failure 6. Agitated delirium 7. Coronary artery disease. CONTINUE ON ASPIRIN 8. Diabetes mellitus. 9. Hypertension. 10. Chronic obstructive pulmonary disease. 11. Leukocytosis 12. Transaminitis 13. Acute blood loss anemia 14: Sinus tachycardia with frequent PACs Plan This patient is a 78-year-old male with a diagnosis of COPD, hypertension, diabetes mellitus, coronary artery disease, and gout. The patient was initially admitted to the inpatient psych unit in mid August 2018 for suicidal ideation and acute kidney injury. The patient had a CT scan of the chest in early September which showed suspected left hilar mass and mild congestive heart failure with trace bilateral pleural effusions. He was also found to have a left upper lobe pneumonia as well as a questionable infiltrate in the right middle lobe. Patient was started on broad-spectrum antibiotics. During hospitalization he had a CAT was called as the patient was found to be hypoxic and was requiring supplemental oxygen. The patient's bilateral infiltrates got worse during the hospitalization and the patient was subsequently intubated. The patient's kidney function also continue to get worse during the hospitalization, he was also started on hemodialysis which is being continued on Sunday and Fridays. Neuro: Monitor neuro status. Up to chair daily, Haldol 4 mg IV every 6 hours as needed for agitation Continue Seroquel BID Pulm: Intubated 09/19 for continued pulmonary edema/ resp distress, extubated 09/25/2018 Pulmonary edema improving with hemodialysis and aggressive diuresis Possible ARDS cannot be ruled out Bronchodilators with albuterol/ipratropium aerosols every 4 hours with albuterol aerosols every 2 hours as needed dyspnea Prednisone 20 mg twice daily, Symbicort 160/4.5 two puffs b.i.d. Pulm is following-Dr. Garcia Oxygen saturation improving currently on nasal cannula CV: Cardizem 60 mg QID. continue metoprolol 5 mg IV every 6 hours PRN BP borderline during HD, albumin bolus PRN Echo on 08/30/2018 EF of 50% to 55%, concentric LV hypertrophy. PA pressure 32 mmHg. Hemodialysis with 4.2 L removed 09/27 and 3.2L 09/28. Hemodialysis planned for today : Monitor renal function, I's and O's, and avoid nephrotoxins. Renal US: No masses, no hydronephrosis Continue IV Bumex and IV Diuril Nephrology following (Dr. Krueger), dialysis 09/27, 09/28 ARF likely due to ATN 2nd Vanco tox. GI: on pantoprazole 40 mg IV daily for GI prophylaxis. Advance diet as tolerated Monitor LFT's, US liver showed only ascites ID: s/p 1 week treatment for CAP, afebrile, but persistent leukocytosis worsening with increased infiltrate on chest x-ray Repeat sputum culture, continue Zosyn renally dosed 09/12: normal resp zeb. Repeat blood and sputum culture. strep pneumonia and legionella urinary antigen negative Heme: Monitor CBC-- Hg stable Monitor RIJ vasc cath for oozing/ bleeding Endo: SSI with aspart insulin to medium scale with Accu-Chek for glycemic control Hold allopurinol until kidney function recovers GI prophylaxis with pantoprazole 40 mg daily DVT prophylaxis with SCD and hold SQH due to hemoptysis Code Status: FULL CODE Discussed Condition With: RN AND PT AND CM Discharge Planning: TRANSFER TO [facility] WHEN ARRANGEMENTS ARE MADE - Time Spent with Patient Total time spent providing and/or coordinating discharge services: Greater than 30 minutes - Quality: VTE Deep Vein Thrombosis/Pulmonary Embolism Present on Admission: No Exam Vital signs: Vital Signs 10/01/18 16:00 10/01/18 19:00 10/01/18 19:31 Temperature 97.7 F 97.4 F L Pulse Rate 80 78 Respiratory Rate 35 H 22 Blood Pressure 129/58 L 125/70 Pulse Oximetry 96 100 98 10/01/18 20:00 10/02/18 00:00 10/02/18 04:00 Temperature 98.4 F 98.5 F 98.3 F Pulse Rate 79 84 81 Respiratory Rate 20 18 16 Blood Pressure 122/69 128/69 119/66 Pulse Oximetry 100 100 100 10/02/18 05:50 10/02/18 08:00 10/02/18 12:15 Temperature 97.5 F L Pulse Rate 73 Respiratory Rate 18 Blood Pressure 127/65 Pulse Oximetry 99 99 96 Intake & Output 10/01/18 10/02/18 10/02/18 18:59 06:59 18:59 Intake Total 200 / 200 530 / 530 Output Total 50 / 50 0 / 0 Balance 150 / 150 530 / 530 Weight 85.5 kg Intake: IV 100 / 100 50 / 50 Zosyn 3.375 GM Premix 50 ML @ 100 / 100 50 / 50 100 mls/hr IV.SIG Q8H [facility] Rx#: [id number] Oral 100 / 100 480 / 480 Output: Urine 50 / 50 0 / 0 Other: # Voids 1 Date of Last Bowel Movement 09/30/18 09/30/18 # Bowel Movements 0 0 Narrative: Physical examination GENERAL: Patient is a well-nourished, well-developed male, awake and alert, looks weak, mild RD at rest SKIN: Cool and dry. No generalized rash, no ecchymoses and no evidence of embolic lesions. HEAD: Atraumatic. Normocephalic. No temporal wasting, or tenderness. EYES: Mio conjunctiva. No petechia or hemorrhage. Pupils equal, round and reactive to light. Extraocular movements full and intact. No scleral icterus. No injection or drainage. EARS, NOSE AND THROAT: Nose without bleeding or purulent nasal discharge. No sinus tenderness. Mucous membranes slightly dry, he keeps his mouth open. NECK: Trachea midline. Supple and not tender, no meningeal signs CARDIOVASCULAR: Regular rate and rhythm. Soft murmur at the base of the heart RESPIRATORY: Breath sounds equal bilaterally. Decreased breath sounds at the bases COARSE BS BL ABDOMEN: Soft, non-tender, nondistended. Bowel sounds present and normoactive. No guarding. No rebound. No organomegaly. EXTREMITIES: No clubbing, cyanosis, or edema. No joint effusion, has good ROM. No calf tenderness. Well perfused and warm. NEUROLOGICAL: Awake and alert. Cranial nerves grossly intact. Motor grossly within normal limits. PSYCHIATRIC: Normal affect, calm and cooperative. LINE: No evidence of infection Results Procedures completed during hospitalization: Date of procedure: 09/19/18 Pre-op diagnosis: pulmonary edema, acute kidney failure Post-op diagnosis: same Procedure: Endotracheal intubation The patient provided verbal consent for this procedure. His O2 sats were 88-90% on high flow nasal cannula and he had not improved from a respiratory standpoint with diuresis. He required placement of a vasc cath for initiation of hemodialysis and would not tolerate lying flat without significant O2 desaturation. The decision was made to intubate him for airway protection and invasive ventilatory support of acute hypoxic respiratory failure. A time out was called and the patient was identified by wrist band. A rapid sequence intubation was performed with etomidate, rocuronium, and an 8-0 ETT was easily passed on first attempt using Glidescope. Position was confirmed by bilateral breath sounds, color change capnometry, and improvement in O2 sats. Surgeon: Sierra Cohn Condition: stable Disposition: ICU Documented By: Sierra Cohn DO Date of procedure: 09/19/18 Pre-op diagnosis: pulmonary edema, acute renal failure Post-op diagnosis: same Procedure: Vascular catheter placement for initiation of hemodialysis The patient provided verbal consent for this procedure. He has persistent pulmonary edema and acute kidney injury which has not improved with diuresis. The decision was made to place a vasc cath for HD to assist with fluid removal. A time out was called and the patient was identified by wrist band. He was prepped with chlorhexidine and allowed to full dry, then a full-body sterile drape was applied. I wore full sterile gown, gloves, face mask, and hat. The right IJ was visualized under ultrasound guidance and 5 cc of 1% lidocaine without epinephrine was given for local anesthesia. The vessel was then accessed using Seldinger technique and serially dilated. The catheter was then placed without difficulty and blood flow returned from both lumens, flushed with saline. The catheter was sutured in place and a Biopatch and sterile dressing were applied. The patient tolerated the procedure well with no immediate complications. Surgeon: Sierra Cohn Condition: stable Disposition: ICU Documented By: Sierra Cohn DO AND STARTED ON HD Completed studies during hospitalization: Laboratory Results WBC 21.3 th/mm3 (4.0-11.0) H 09/30/18 04:07 RBC 2.98 mil/mm3 (4.50-5.90) L 09/30/18 04:07 Hgb 8.9 gm/dL (13.0-17.0) L 09/30/18 04:07 Hct 25.8 % (39.0-51.0) L 09/30/18 04:07 MCV 86.6 fL (80.0-100.0) 09/30/18 04:07 MCH 29.7 pg (27.0-34.0) 09/30/18 04:07 MCHC 34.3 % (32.0-36.0) 09/30/18 04:07 RDW 19.2 % (11.6-17.2) H 09/30/18 04:07 Plt Count 68 th/mm3 (150-450) L 09/30/18 04:07 MPV 8.8 fL (7.0-11.0) 09/30/18 04:07 Prelim Diff (Auto) Slide review pending 09/26/18 03:20 Neut % (Auto) 93.5 % (16.0-70.0) H 09/26/18 03:20 Lymph % (Auto) 2.1 % (9.0-44.0) L 09/26/18 03:20 Frederick % (Auto) 4.0 % (0.0-8.0) 09/26/18 03:20 Eos % (Auto) 0.1 % (0.0-4.0) 09/26/18 03:20 Baso % (Auto) 0.3 % (0.0-2.0) 09/26/18 03:20 Neut # (Auto) 25.6 th/mm3 (1.8-7.7) H 09/26/18 03:20 Lymph # (Auto) 0.6 th/mm3 (1.0-4.8) L 09/26/18 03:20 Frederick # (Auto) 1.1 th/mm3 (0.0-0.9) H 09/26/18 03:20 Eos # (Auto) 0.0 th/mm3 (0.0-0.4) 09/26/18 03:20 Baso # (Auto) 0.1 th/mm3 (0.0-0.2) 09/26/18 03:20 WBC Differential Manual diff final 09/26/18 03:20 Diff Scan Auto diff confirmed 09/24/18 03:53 Seg Neuts % (Manual) 90 % (16-70) H 09/26/18 03:20 Band Neuts % (Manual) 3 % (0-6) 09/25/18 04:40 Lymphocytes % (Manual) 2 % (9-44) L 09/26/18 03:20 Monocytes % (Manual) 6 % (0-8) 09/26/18 03:20 Metamyelocytes % (Man) 1 % (0-1) 09/26/18 03:20 Myelocytes % (Man) 1 % (0-0) H 09/26/18 03:20 Abs Neuts (Manual) 25.2 th/mm3 (1.8-7.7) H 09/26/18 03:20 Nucleated RBCs/100 WBC 3 /100 WBC (0-0) H 09/18/18 04:01 Differential Comment . 11/22/18 03:20 Platelet Estimate Low (Normal) L 09/26/18 03:20 Platelet Morphology Normal (Normal) 09/26/18 03:20 RBC Morphology Normal (Normal) 09/26/18 03:20 Ovalocytes 1+ (None) H 09/25/18 04:40 Keratocytes Occ (None) H 09/17/18 04:10 PT 11.9 sec (9.8-11.6) H 09/21/18 13:05 INR 1.2 Ratio 09/21/18 13:05 APTT 30.2 sec (23.4-31.7) 09/21/18 13:05 Puncture Site Left radial 09/27/18 12:29 Patient Temperature 98.6 09/27/18 12:29 O2 Saturation 96 % (90-100) 09/27/18 12:29 ABG pH 7.47 (7.380-7.420) H 09/27/18 12:29 ABG pCO2 43 mmHg (38-42) H 09/27/18 12:29 ABG pO2 156 mmHG (61-120) H 09/27/18 12:29 ABG HCO3 31 mmol/L (22-26) H 09/27/18 12:29 ABG O2 Content 11.9 Vol % (12.0-20.0) L 09/27/18 12:29 ABG Base Excess 6.8 mmol/L (-2-2) H 09/27/18 12:29 ABG Methemoglobin 1.9 % (0-2) 09/27/18 12:29 Cristian Test Present 09/27/18 12:29 Hemoglobin 8.6 G/DL (12.0-16.0) L 09/27/18 12:29 Carboxyhemoglobin 1.5 % (0-4) 09/27/18 12:29 O2 Delivery Device Non-rebreathing mask 09/27/18 12:29 Liter Flow 15.00 L/M 09/27/18 12:29 Vent Setting Prvc/ac 500// 09/19/18 11:50 Inspired O2 100 % 09/27/18 12:29 Critical Value No 09/27/18 12:29 Sodium 142 meq/L (136-145) 09/30/18 04:07 Potassium 3.2 meq/L (3.5-5.1) L 09/30/18 04:07 Chloride 102 meq/L (98-107) 09/30/18 04:07 Carbon Dioxide 27.0 meq/L (21.0-32.0) 09/30/18 04:07 Anion Gap 13 meq/L (5-15) 09/30/18 04:07 BUN 77 mg/dL (7-18) H 09/30/18 04:07 Creatinine 4.35 mg/dL (0.60-1.30) H 09/30/18 04:07 Estimated GFR 13 mL/min (>89) L 09/30/18 04:07 POC Glucose 342 mg/dl (68-110) H 10/02/18 12:01 Random Glucose 187 mg/dL (74-106) H 09/30/18 04:07 Hemoglobin A1c 5.8 % (4.3-6.0) 09/15/18 07:20 Calcium 8.8 mg/dL (8.5-10.1) 09/30/18 04:07 Phosphorus 4.0 mg/dL (2.5-4.9) 09/16/18 08:15 Magnesium 2.3 mg/dL (1.5-2.5) 09/26/18 03:20 Total Bilirubin 2.1 mg/dL (0.2-1.0) H 09/30/18 04:07 AST 23 U/L (15-37) 09/30/18 04:07 ALT 47 U/L (12-78) 09/30/18 04:07 Alkaline Phosphatase 68 U/L (45-117) 09/30/18 04:07 B-Natriuretic Peptide 244 pg/mL (0-100) H 09/10/18 17:11 Total Protein 6.3 g/dL (6.4-8.2) L 09/30/18 04:07 Albumin 3.7 g/dL (3.4-5.0) 09/30/18 04:07 Urine Color Yellow (Yellw/Straw) 09/26/18 18:00 Urine Clarity Clear (Clear) 09/26/18 18:00 Urine pH 6.0 (5.0-8.5) 09/26/18 18:00 Ur Specific [place] 1.008 (1.002-1.035) 09/26/18 18:00 Urine Protein 100 mg/dL (Neg-Trace) H 09/26/18 18:00 Urine Glucose (UA) Negative mg/dL (Negative) 09/26/18 18:00 Urine Ketones Negative mg/dL (Negative) 09/26/18 18:00 Urine Occult Blood Large (Negative) H 09/26/18 18:00 Urine Nitrate Negative (Negative) 09/26/18 18:00 Urine Bilirubin Negative (Negative) 09/26/18 18:00 Urine Urobilinogen Less than 2 mg/dL (Less than 2) 09/26/18 18:00 Ur Leukocyte Esterase Negative (Negative) 09/26/18 18:00 Urine RBC 76 /hpf (0-3) H 09/26/18 18:00 Urine WBC 3 /hpf (0-5) 09/26/18 18:00 Ur Squamous Epith Cells <1 /hpf (0-5) 09/18/18 09:00 Ur Transition Epith Cell <1 /hpf (None) 09/12/18 23:55 Ur Renal Epithelial Cell <1 /hpf (None) 09/12/18 23:55 Calcium Oxalate Crystal Rare /hpf (None) H 09/12/18 23:55 Uric Acid Crystals Rare /hpf (None) H 09/18/18 09:00 Amorphous Sediment Rare /hpf (None) H 09/26/18 18:00 Urine Bacteria Rare /hpf (None) H 09/18/18 09:00 Hyaline Casts 6 /lpf (0-3) 09/26/18 18:00 Urine Mucus Few /lpf (Occasional) H 09/26/18 18:00 Urine Yeast Rare /hpf (None) H 09/26/18 18:00 Micro UA Comment Cath-culture not ind 09/26/18 18:00 Ur Microscopic Review Not Reportable 09/26/18 18:00 Urine Culture Comments Cath-cult not ind 09/26/18 18:00 Urine Eosinophils None seen /HPF (None Seen) 09/12/18 23:55 Ur Random Creatinine 157 mg/dL (27-300) 09/12/18 23:55 Ur Random Sodium 10 meq/L 09/12/18 23:55 Nasal Screen MRSA (PCR) Not detected (Negative) 09/10/18 16:25 Random Vancomycin 26.6 Comment 09/13/18 03:35 Hepatitis A IgM Ab Nonreactive (Nonreactive) 09/19/18 13:35 Hep Bs Antigen Nonreactive (Nonreactive) 09/19/18 13:35 Hep B Core IgM Ab Nonreactive (Nonreactive) 09/19/18 13:35 Hep C IgG Ab Nonreactive (Nonreactive) 09/19/18 13:35 Blood Type B Positive 09/21/18 05:45 Blood Type Recheck Required 09/21/18 05:45 Antibody Screen Negative 09/21/18 05:45 MTS Gel Crossmatch See Detail 09/21/18 05:45 Impressions Abdomen/Bladder Ultrasound 09/11/18 00:00 CONCLUSION: 1. Increased renal cortical echogenicity characteristic of chronic parenchymal disease. 2. No evidence of hydronephrosis. 3. No suspicious masses identified. Liver Ultrasound 09/17/18 00:00 CONCLUSION: 1. There is a trace amount of ascites identified around the liver and spleen. 2. There is a small amount of pericholecystic fluid but no significant gallbladder wall thickening. This may represent ascites. 3. Echogenic debris in the dependent portion of the gallbladder. 4. Heterogeneous echotexture of the liver Chest X-Ray 10/01/18 00:00 CONCLUSION: 1. Improved patchy bilateral upper lobe airspace disease. 2. More confluent airspace consolidation in the left lower lung zone. Labs on day of discharge: Labs from last 24 hours 10/02/18 10/02/18 10/02/18 12:01 05:33 02:18 POC Glucose 342 H 199 H 222 H 10/01/18 17:30 POC Glucose 204 H - Impressions ITS Impressions Abdomen/Bladder Ultrasound 09/11/18 00:00 CONCLUSION: 1. Increased renal cortical echogenicity characteristic of chronic parenchymal disease. 2. No evidence of hydronephrosis. 3. No suspicious masses identified. Liver Ultrasound 09/17/18 00:00 CONCLUSION: 1. There is a trace amount of ascites identified around the liver and spleen. 2. There is a small amount of pericholecystic fluid but no significant gallbladder wall thickening. This may represent ascites. 3. Echogenic debris in the dependent portion of the gallbladder. 4. Heterogeneous echotexture of the liver Chest X-Ray 10/01/18 00:00 CONCLUSION: 1. Improved patchy bilateral upper lobe airspace disease. 2. More confluent airspace consolidation in the left lower lung zone. Discharge Plan - Discharge Disposition Patient Disposition: Disch To Another Hospital - Discharge Condition Condition: Good - Discharge Order Discharge Orders: Discharge Order (Routine); Ordered 10/02/18 Ordered By: Norbert Kay - Discharge Details Anticipated Discharge Date: 10/02/18 Discharge Comment: DC [facility] BED IS AVAILABLE - Physicians Team Primary Care Provider: UNKNOWN, Attending Provider: Norbert Kay Other Providers: Roland Garcia MD ; Krystle Krueger MD ; Stoney Mallory MD ; [facility] ; [facility] ; Briana Snell MD - Rxs /Orders / Referrals /Forms Prescriptions: New acetaminophen 325 mg Tablet 650 mg PO UNSCH PRN (Reason: See Label Comments) RF: 0 albumin, human 25 % [Flexbumin 25 %] 25 % Parenteral Solution 25 ml IV WITH DIALYSIS PRN (Reason: hypotension / volume replace) RF: 0 albuterol sulfate 2.5 mg /3 mL (0.083 %) Solution For Nebulization 2.5 mg NEB Q2HR NEB PRN (Reason: Dyspnea) RF: 0 aspirin 81 mg Tablet,Chewable 81 mg PO DAILY RF: 0 bisacodyl [Bisac-Evac] 10 mg Suppository [address] DAILY PRN (Reason: Severe Consitipation) RF: 0 budesonide-formoterol [Symbicort] 160-4.5 mcg/actuation Hfa Aerosol Inhaler 2 puff INH BID RF: 0 bumetanide 0.25 mg/mL Solution 2 mg IV.PUSH BID@0900,1800 RF: 0 chlorhexidine gluconate 0.12 % Mouthwash 15 ml OROPHARYNG BID@0800,2000 RF: 0 clonidine HCl [Catapres] 0.1 mg Tablet 0.1 mg PO UNSCH PRN (Reason: See Label Comments) RF: 0 cyanocobalamin (vitamin B-12) [Vitamin B-12] 100 mcg Tablet 100 mcg PO DAILY RF: 0 dextrose 50 % in water (D50W) Parenteral Solution 50 ml IV.PUSH UNSCH PRN (Reason: Per Hypoglycemia Protocol) RF: 0 diltiazem HCl 60 mg Tablet 60 mg PO QID RF: 0 diphenhydramine HCl 25 mg Capsule 25 mg PO UNSCH PRN (Reason: See Label Comments) RF: 0 epoetin fransico [Epogen] 10,000 unit/mL Solution 4,000 unit IV.PUSH UNSCH PRN (Reason: See Label Comments) RF: 0 gelatin absorbable [Gelfoam Sponge Size 12-7mm] 12-7 mm Sponge 1 foam Topical PRN PRN (Reason: help stop bleeding from site) RF: 0 gentamicin 20 mg/2 mL Solution 20 mg OTHER WITH DIALYSIS PRN (Reason: Dwell Gentamycin Lock) RF: 0 glucagon (human recombinant) [GlucaGen Diagnostic Kit] 1 mg/mL Recon Soln 1 mg OTHER UNSCH PRN (Reason: for Hypoglycemia Protocol) RF: 0 haloperidol lactate [Haldol] 5 mg/mL Solution 4 mg IV.PUSH Q6H PRN (Reason: Agitation) RF: 0 heparin (porcine) 1,000 unit/mL Solution 8,000 units OTHER WITH DIALYSIS PRN (Reason: for machine prime) RF: 0 heparin (porcine) 1,000 unit/mL Solution 1,000 units OTHER WITH DIALYSIS PRN (Reason: Dwell Heparin to Fill Catheter ) RF: 0 heparin (porcine) 10,000 unit/mL Solution 5,000 units subcut Q12H RF: 0 insulin aspart U-100 [Novolog U-100 Insulin aspart] 100 unit/mL Solution 0 unit subcut Q6HR RF: 0 lactulose 20 gram/30 mL Solution 30 ml PO DAILY PRN (Reason: Severe Consitipation) RF: 0 magnesium hydroxide [Milk of Magnesia] 400 mg/5 mL Suspension 30 ml PO Q12H PRN (Reason: Mild Constipation) RF: 0 mannitol 25 % 25 % Solution 12.5 gm IV.PUSH UNSCH PRN (Reason: hypotension / volume replace) RF: 0 metoprolol tartrate 5 mg/5 mL Solution 5 mg IV.PUSH Q6H PRN (Reason: Sbp>180, Dbp>100, Hr>65) RF: 0 nitroglycerin [Nitrostat] 0.4 mg Tablet, Sublingual 0.4 mg Sublingual Q5M PRN (Reason: Chest Pain) RF: 0 ondansetron HCl (PF) 4 mg/2 mL Solution 4 mg IV.PUSH UNSCH PRN (Reason: Nausea Or Vomiting) RF: 0 pantoprazole [Protonix] 40 mg Recon Soln 40 mg IV.PUSH DAILY RF: 0 prednisone 10 mg Tablet 10 mg PO DAILY RF: 0 quetiapine 25 mg Tablet 25 mg PO BID RF: 0 sennosides [Senna Lax] 8.6 mg Tablet 17.2 mg PO Q12H PRN (Reason: Moderate Constipation) RF: 0 sodium chloride 0.9 % [Normal Saline Flush] Syringe 5 ml IV.FLUSH PRN PRN (Reason: flush each lumen during HD) RF: 0 sodium chloride [[place] Nasal] 0.65 % Aerosol,[place] 2 spray Intranasal Q4H PRN (Reason: Secretions) RF: 0 tamsulosin 0.4 mg Capsule 0.4 mg PO DAILY RF: 0 Discontinued amlodipine [Norvasc] 5 mg Tablet 5 mg PO BID 60 Days Qty: 60 RF: 0 amoxicillin-pot clavulanate [Augmentin] 875-125 mg Tablet 1 tab PO Q12H cefdinir 300 mg Capsule 300 mg PO Q12H doxycycline hyclate [Vibramycin] 100 mg Capsule 100 mg PO BID hydrocodone-acetaminophen 10-325 mg Tablet 1 tab PO BID PRN (Reason: Pain) insulin glargine [Lantus U-100 Insulin] 100 unit/mL Solution 7 unit SUBCUT DAILY lisinopril tablet 40 mg PO BID Referrals: UNKNOWN, [Primary Care Provider] - See Instructions - Discharge Instructions Additional Instructions: CONTINUE HD ON SUNDAY, SUNDAY AND SUNDAY
--- NOTE | 2018-10-02 13:41 | P.PN ---
Subjective Interval history: feels better. Now on O2 2 L. No chest pains. Taking Po diet well . Physical Exam Vital signs: Vital Signs 10/01/18 16:00 10/01/18 19:00 10/01/18 19:31 Temperature 97.7 F 97.4 F L Pulse Rate 80 78 Respiratory Rate 35 H 22 Blood Pressure 129/58 L 125/70 Pulse Oximetry 96 100 98 10/01/18 20:00 10/02/18 00:00 10/02/18 04:00 Temperature 98.4 F 98.5 F 98.3 F Pulse Rate 79 84 81 Respiratory Rate 20 18 16 Blood Pressure 122/69 128/69 119/66 Pulse Oximetry 100 100 100 10/02/18 05:50 10/02/18 08:00 10/02/18 12:15 Temperature 97.5 F L Pulse Rate 73 Respiratory Rate 18 Blood Pressure 127/65 Pulse Oximetry 99 99 96 Intake & Output 10/01/18 10/02/18 10/02/18 18:59 06:59 18:59 Intake Total 200 / 200 530 / 530 Output Total 50 / 50 0 / 0 Balance 150 / 150 530 / 530 Weight 85.5 kg Intake: IV 100 / 100 50 / 50 Zosyn 3.375 GM Premix 50 ML @ 100 / 100 50 / 50 100 mls/hr IV.SIG Q8H [facility] Rx#: [id number] Oral 100 / 100 480 / 480 Output: Urine 50 / 50 0 / 0 Other: # Voids 1 Date of Last Bowel Movement 09/30/18 09/30/18 # Bowel Movements 0 0 Narrative: Physical examination GENERAL: Elderly W/M alert no distress SKIN: Warm and dry. HEAD: Atraumatic. Normocephalic. EYES: Pupils equal and round. No scleral icterus. No injection or drainage. ENT: No nasal bleeding or discharge. Mucous membranes pink and moist. NECK: Trachea midline. No JVD. CARDIOVASCULAR: Regular rate and rhythm. RESPIRATORY: No accessory muscle use. Occ crackles at Bases. Breath sounds equal bilaterally. GASTROINTESTINAL: Abdomen soft, non-tender, nondistended. Hepatic and splenic margins not palpable. MUSCULOSKELETAL: Extremities without clubbing, cyanosis,but has edema. No obvious deformities. NEUROLOGICAL: Awake and alert. No obvious cranial nerve deficits. Motor grossly within normal limits. Normal speech. PSYCHIATRIC: Appropriate mood and affect. - Urinary Catheter Management Indwelling Urethral Catheter Cath placed during this visit: yes, but has since been removed by the nurse Reason for continuing: Hourly intake/output Insertion date: 09/18/18 Insertion time: 09:00 Removal date: 09/23/18 Removal time: 17:00 Straight Cath placed during this visit: no Results - Labs CBC & Chem 7: 09/30/18 04:07 09/30/18 04:07 Laboratory Results - last 24 hr 10/01/18 10/02/18 10/02/18 17:30 02:18 05:33 POC Glucose 204 H 222 H 199 H 10/02/18 12:01 POC Glucose 342 H Microbiology 09/26/18 09:25 Blood - Peripheral Aerobic Blood Culture - Final Staphylococcus epidermidis 09/26/18 09:25 Blood - Peripheral Anaerobic Blood Culture - Final No growth in 5 days 09/26/18 09:30 Blood - Peripheral Aerobic Blood Culture - Final No growth in 5 days 09/26/18 09:30 Blood - Peripheral Anaerobic Blood Culture - Final No growth in 5 days - Imaging Impressions Chest X-Ray 10/01/18 00:00 CONCLUSION: 1. Improved patchy bilateral upper lobe airspace disease. 2. More confluent airspace consolidation in the left lower lung zone. - Procedures Date of procedure: 09/19/18 Pre-op diagnosis: pulmonary edema, acute kidney failure Post-op diagnosis: same Procedure: Endotracheal intubation The patient provided verbal consent for this procedure. His O2 sats were 88-90% on high flow nasal cannula and he had not improved from a respiratory standpoint with diuresis. He required placement of a vasc cath for initiation of hemodialysis and would not tolerate lying flat without significant O2 desaturation. The decision was made to intubate him for airway protection and invasive ventilatory support of acute hypoxic respiratory failure. A time out was called and the patient was identified by wrist band. A rapid sequence intubation was performed with etomidate, rocuronium, and an 8-0 ETT was easily passed on first attempt using Glidescope. Position was confirmed by bilateral breath sounds, color change capnometry, and improvement in O2 sats. Surgeon: Sierra Cohn Condition: stable Disposition: ICU Documented By: Sierra Cohn DO Date of procedure: 09/19/18 Pre-op diagnosis: pulmonary edema, acute renal failure Post-op diagnosis: same Procedure: Vascular catheter placement for initiation of hemodialysis The patient provided verbal consent for this procedure. He has persistent pulmonary edema and acute kidney injury which has not improved with diuresis. The decision was made to place a vasc cath for HD to assist with fluid removal. A time out was called and the patient was identified by wrist band. He was prepped with chlorhexidine and allowed to full dry, then a full-body sterile drape was applied. I wore full sterile gown, gloves, face mask, and hat. The right IJ was visualized under ultrasound guidance and 5 cc of 1% lidocaine without epinephrine was given for local anesthesia. The vessel was then accessed using Seldinger technique and serially dilated. The catheter was then placed without difficulty and blood flow returned from both lumens, flushed with saline. The catheter was sutured in place and a Biopatch and sterile dressing were applied. The patient tolerated the procedure well with no immediate complications. Surgeon: Sierra Cohn Condition: stable Disposition: ICU Documented By: Sierra Cohn DO AND STARTED ON HD Assessment and Plan - Assessment (1) Mood disorder due to known physiological condition with depressive features Code(s): F06.31 - Mood disorder due to known physiological condition with depressive features Status: Chronic (2) Gout Code(s): M10.9 - Gout, unspecified Status: Chronic (3) Hypertension Code(s): I10 - Essential (primary) hypertension Status: Chronic (4) Acute renal failure Code(s): N17.9 - Acute kidney failure, unspecified Status: Acute (5) COPD (chronic obstructive pulmonary disease) Code(s): J44.9 - Chronic obstructive pulmonary disease, unspecified Status: Chronic (6) Pneumonia Code(s): J18.9 - Pneumonia, unspecified organism Status: Acute - Plan 1. Acute hypoxemic respiratory failure resolving 2. Left upper lobe pneumonia 3. B/l pulm infiltrates 4. Acute kidney injury. 5. Anemia. 6. Coronary artery disease. 7. Diabetes mellitus. 8. Hypertension. 9. Chronic obstructive pulmonary disease. 10. Obesity. Plan Pulm: 1) Continue with N/C at 3 L. and wean. 2) Dialysis today 3) D/C Antibiotics 4) Cont Duoneb nebs tid 5) CBC,BMP in am 6) PT evaluation 7) PO diet as tolerated 8) Prednisone 10 mg daily
--- NOTE | 2018-10-02 16:31 | P.PNNP ---
Subjective Interval history: Patient seen during hemodialysis tolerating it well Physical Exam Vital signs: Vital Signs 10/01/18 19:00 10/01/18 19:31 10/01/18 20:00 Temperature 97.4 F L 98.4 F Pulse Rate 78 79 Respiratory Rate 22 20 Blood Pressure 125/70 122/69 Pulse Oximetry 100 98 100 10/02/18 00:00 10/02/18 04:00 10/02/18 05:50 Temperature 98.5 F 98.3 F Pulse Rate 84 81 Respiratory Rate 18 16 Blood Pressure 128/69 119/66 Pulse Oximetry 100 100 99 10/02/18 07:00 10/02/18 08:00 10/02/18 11:00 Temperature 97.5 F L Pulse Rate 82 73 82 Respiratory Rate 18 Blood Pressure 127/65 Pulse Oximetry 99 10/02/18 12:00 10/02/18 12:15 Temperature 97.6 F Pulse Rate 81 Respiratory Rate 16 Blood Pressure 117/64 Pulse Oximetry 92 L 96 Intake & Output 10/01/18 10/02/18 10/02/18 18:59 06:59 18:59 Intake Total 200 / 200 530 / 530 Output Total 50 / 50 0 / 0 Balance 150 / 150 530 / 530 Weight 85.5 kg Intake: IV 100 / 100 50 / 50 Zosyn 3.375 GM Premix 50 ML @ 100 / 100 50 / 50 100 mls/hr IV.SIG Q8H [facility] Rx#: [id number] Oral 100 / 100 480 / 480 Output: Urine 50 / 50 0 / 0 Other: # Voids 1 Date of Last Bowel Movement 09/30/18 09/30/18 # Bowel Movements 0 0 Narrative: Physical examination GENERAL: Elderly W/M alert no distress SKIN: Warm and dry. HEAD: Atraumatic. Normocephalic. EYES: Pupils equal and round. No scleral icterus. No injection or drainage. ENT: No nasal bleeding or discharge. Mucous membranes pink and moist. NECK: Trachea midline. No JVD. CARDIOVASCULAR: Regular rate and rhythm. RESPIRATORY: No accessory muscle use. Occ crackles at Bases. Breath sounds equal bilaterally. GASTROINTESTINAL: Abdomen soft, non-tender, nondistended. Hepatic and splenic margins not palpable. MUSCULOSKELETAL: Extremities without clubbing, cyanosis,but has edema. No obvious deformities. NEUROLOGICAL: Awake and alert. No obvious cranial nerve deficits. Motor grossly within normal limits. Normal speech. PSYCHIATRIC: Appropriate mood and affect. - Urinary Catheter Management Indwelling Urethral Catheter Cath placed during this visit: yes, but has since been removed by the nurse Reason for continuing: Hourly intake/output Insertion date: 09/18/18 Insertion time: 09:00 Removal date: 09/23/18 Removal time: 17:00 Straight Cath placed during this visit: no Assessment and Plan - Assessment (1) Acute renal failure Code(s): N17.9 - Acute kidney failure, unspecified Status: Acute (2) COPD (chronic obstructive pulmonary disease) Code(s): J44.9 - Chronic obstructive pulmonary disease, unspecified Status: Chronic (3) Pneumonia Code(s): J18.9 - Pneumonia, unspecified organism Status: Acute (4) Mood disorder due to known physiological condition with depressive features Code(s): F06.31 - Mood disorder due to known physiological condition with depressive features Status: Chronic (5) Gout Code(s): M10.9 - Gout, unspecified Status: Chronic (6) Hypertension Code(s): I10 - Essential (primary) hypertension Status: Chronic - Plan Patient has acute tubular necrosis likely due to vancomycin levels are high Creatinine 2.7 -> 3 -> 3.2 -> 3.3-3.3-3.29-3.30-3.15-3.16-2.78-3.2-3.5 -2.62-- 2.87--2.2--2.29--2.6--4.3-- PENDING hemodialysis: Patient is doing better remains on dialysis on Sunday and Sunday Seen during hemodialysis tolerating it well 2 L of ultrafiltration, long-term will need PermCath insertion and hemodialysis arrangement as outpatient Monitor BMP, white cell count is high Monitor intake and output COPD improved Continue to monitor. Continue to monitor next dialysis MWF
[2018-10-02 16:32] LABS: Baso % (Auto) 0.2 % (0.0-2.0); Hematocrit 27.9 % (39.0-51.0); Hemoglobin 9.5 gm/dL (13.0-17.0); Lymph # (Auto) 0.1 th/mm3 (1.0-4.8); Mean Corpuscular HGB Conc 34.2 % (32.0-36.0); Mean Corpuscular Hemoglobin 30.2 pg (27.0-34.0); Mean Corpuscular Volume 88.3 fL (80.0-100.0); Mean Platelet Volume 8.3 fL (7.0-11.0); Mono # (Auto) 0.1 th/mm3 (0.0-0.9); Mono % (Auto) 1.6 % (0.0-8.0); Neut # (Auto) 3.1 th/mm3 (1.8-7.7); Neut % (Auto) 93.2 % (16.0-70.0); Platelet Count 51 th/mm3 (150-450); Red Blood Count 3.15 mil/mm3 (4.50-5.90); Red Cell Distribution Width 20.5 % (11.6-17.2); White Blood Count 3.3 th/mm3 (4.0-11.0)
[2018-10-02 17:05] LABS: Calcium 8.4 mg/dL (8.5-10.1); Carbon Dioxide 29.2 meq/L (21.0-32.0); Magnesium 2.4 mg/dL (1.5-2.5); Potassium 3.3 meq/L (3.5-5.1)
[2018-10-02 17:09] LABS: Ovalocytes 1+; Platelet Morphology Normal (Normal)
[2018-10-03] MEDS: Oral Hygiene Kit OROPHARYNG SCH ×2 (01:01→04:32)
[2018-10-03] MEDS: Insulin NovoLOG Aspart Correctional Sugar Inj SQ SCH ×2 (01:01→06:11)
[2018-10-03 08:06] LABS: Baso % (Auto) 0.2 % (0.0-2.0); Eos # (Auto) 0.2 th/mm3 (0.0-0.4); Eos % (Auto) 1.4 % (0.0-4.0); Hematocrit 30.9 % (39.0-51.0); Hemoglobin 10.4 gm/dL (13.0-17.0); Lymph # (Auto) 0.6 th/mm3 (1.0-4.8); Lymph % (Auto) 4.9 % (9.0-44.0); Mean Corpuscular HGB Conc 33.5 % (32.0-36.0); Mean Corpuscular Hemoglobin 29.7 pg (27.0-34.0); Mean Corpuscular Volume 88.5 fL (80.0-100.0); Mean Platelet Volume 8.5 fL (7.0-11.0); Mono # (Auto) 0.4 th/mm3 (0.0-0.9); Mono % (Auto) 3.3 % (0.0-8.0); Neut # (Auto) 10.6 th/mm3 (1.8-7.7); Neut % (Auto) 90.2 % (16.0-70.0); Platelet Count 58 th/mm3 (150-450); Red Cell Distribution Width 21.6 % (11.6-17.2); White Blood Count 11.7 th/mm3 (4.0-11.0)
[2018-10-03 08:29] LABS: Alanine Aminotransferase 73 U/L (12-78); Albumin 3.3 g/dL (3.4-5.0); Alkaline Phosphatase 80 U/L (45-117); Anion Gap 12 meq/L (5-15); Aspartate Aminotransferase 22 U/L (15-37); Blood Urea Nitrogen 44 mg/dL (7-18); Calcium 8.6 mg/dL (8.5-10.1); Carbon Dioxide 26.7 meq/L (21.0-32.0); Chloride 101 meq/L (98-107); Glomerular Filtration Rate 16 mL/min (>89); Glucose,Random 207 mg/dL (74-106); Magnesium 2.1 mg/dL (1.5-2.5); Potassium 3.3 meq/L (3.5-5.1); Sodium 140 meq/L (136-145); Total Protein 6.4 g/dL (6.4-8.2)
[2018-10-03 08:50] LABS: Dimorphic RBC Present; Ovalocytes 1+; Platelet Morphology Normal (Normal)
[2018-10-03] MEDS: Chlorhexidine 0.12% Oral Kit 15 ML UDC OROPHARYNG SCH (09:19)
[2018-10-03] MEDS: predniSONE 10 MG Tablet PO SCH (09:19)
[2018-10-03] MEDS: QUEtiapine 25 MG Tablet PO SCH (09:19)
[2018-10-03] MEDS: dilTIAZem 60 MG Tablet PO SCH (09:20)
[2018-10-03] MEDS: Pantoprazole Inj 40 MG Vial IV.PUSH SCH (09:21)
[2018-10-03] MEDS: Sodium Chloride 0.9% 2 ML Flush BID IV.FLUSH SCH (09:21)
[2018-10-03 09:48] VITALS: BP 119/68; RESP 20; TEMP 97.4; O2SAT 97
[2018-10-03 09:50] VITALS: PULSE 86
[2018-10-03] MEDS ORDERED: Vancomycin Inj 1,000 MG in Sodium Chlor 0.9% Inj 250 ML IV.SIG SCH (10:00)
[2018-10-03] MEDS ORDERED: ceFAZolin 2 GM Premix Inj 2 GM/50 ML PIGGYBACK IV.SIG SCH (10:00)
[2018-10-03] MEDS: Budesonide-Formoterol 160/4.5 MCG 6 GM Inhaler INH SCH (10:15)
[2018-10-03 10:38] LABS: Activated Partial Thrombo Time 25.3 sec (23.4-31.7); INR 1.2 Ratio
[2018-10-03 10:45] LABS: Prothrombin Time 11.8 sec (9.8-11.6)
--- NOTE | 2018-10-03 10:46 | P.PNIM ---
Subjective Interval history: Patient is a 78-year-old male with a past medical history of ? COPD, hypertension, diabetes mellitus, coronary artery disease and gout. He was admitted to inpatient medication psych on 08/17/2018 for suicidal ideation and acute kidney injury. He was found to have a creatinine of 1.64. During his hospital course, the patient was seen by hospitalist service. He had a chest x- ray on 08/19/2018. At that time it showed mild basilar opacity, probably subsegmental atelectasis with trace pleural fluid. Then, he had a CT scan of the chest on 09/07/2018 which showed suspected left hilar mass, mild congestive heart failure with small bilateral pleural effusions, left upper lobe pneumonia and focal atypical appearing infiltrate in the right middle lobe with dependent atelectasis of both lower lobes. He was started on broad-spectrum antibiotics. The patient had a V/Q scan on 09/08/2018 which showed a low probability for pulmonary embolism. Helicat was called for increased O2 requirements and the patient was subsequently transferred to [facility] and [facility] Care Medicine was consulted for critical care management. When seen, the patient was on partial nonrebreather mask with a saturation of 100%. Blood pressure 151/70 with a pulse of 89. The patient states that he quit smoking over 20 years ago. He does not use any inhalers or nebulizers at home. He denies any nausea, vomiting or abdominal pain. 09/11 Patient is lying in bed in NAD. Afebrile. 09/12 Patient is lying in bed in NAD. On 4L oxygen. Afebrile. Renal function worse today with Cr: 2.70 from 1.81 09/13 Patient is lying in bed in NAD. Afebrile, Renal function is worsening with Cr: 3.04 from 2.70 09/14 Patient dropped his sats overnight placed on partial rebreather, CXR this morning showed b/l pulm infiltrates. Given Lasix 40mg IV x1. Afebrile. 09/15: Afebrile. Lying in bed in no acute distress. Currently on high flow at 90% nasal cannula. 09/16 Patient is on high flow oxygen 30L with 90% FIO2. Afebrile: 09/17 Patient is on 35L high flow oxyge with 60% FIO2. Awake and alert, Afebrile. 09/18: Patient currently more critical FiO2 requirement has increased overnight currently on 90% FiO2 with high flow oxygen to maintain sat above 90%. Chest x- ray shows severe bilateral upper lobe infiltrates with appearance of pulmonary edema. With Bumex IV push patient has urine output more than 2.5 L, however not achieving adequate and negative balance. BUN 18 today with creatinine of 3.3. Will discontinue IV Bumex and start Bumex infusion at 1 mg/h along with IV albumin. 09/19: Agitated overnight. BUN and creatinine unchanged from yesterday. Started on bumex gtt yesterday. It doesn't appear that his urine output was charted during the day shift yesterday but he made 1200 cc of urine overnight and was - 700 cc for the shift. He is currently on high flow 40 L at 100%. Patient states "I want to get out of bed to a chair today". 09/20: Patient continued to have tachypnea and increased work of breathing throughout the morning yesterday, O2 sats stayed around 88-90% on high flow, still wasn't diuresing adequately with bumex/ albumin. He was intubated and and a RIJ vasc cath was placed, received first HD session yesterday afternoon. 09/21: Resting comfortably, no significant overnight events 09/22: Pulmonary edema continues to improve, tolerated spontaneous breathing trial x 2 hours this morning but had an episode of A fib with RVR and appeared anxious. Oozing continues from RIJ vasc cath, will reinforce with suture/ Gelfoam. 09/23: Currently being dialyzed. I placed a suture around the base of the RIJ vasc cath yesterday with Gelfoam reinforcement, less oozing today as per RN. Will attempt SBT after HD. 09/24: ETT exchanged yesterday due to cuff issue, no other overnight events. Tolerated HD yesterday without issue. 09/25: No overnight events. Tolerated spontaneous breathing trial x 1-2 hours yesterday but had to be placed back on AC due to apneic pauses. Continue to aggressively wean vent today. Currently being dialyzed. 09/26: Extubated yesterday currently hypoxic requiring partial nonrebreather. Chest x-ray today shows worsening pulmonary edema especially on the right side. I will start scheduled Lasix 2 mg IV every 12 hours. Nephrology following, will request hemodialysis today due to fluid overload/worsening pulmonary edema. 09/27: Patient remains on nonrebreather, does not tolerate BiPAP. Took a turn for the worse more critical now. When patient removed his partial nonrebreather his oxygen saturation decreased to 60%. Was immediately replaced currently saturating 88%. Chest x-ray shows extensive worsening bilateral pulmonary edema. Discussed with nephrology emergency hemodialysis with fluid removal and repeat chest x-ray. If clinically and radiologically not improving patient will need to be placed on mechanical ventilatory support. Despite achieving negative balance has bilateral infiltrate indicating possibility of ARDS 09/28: Patient remains on nonrebreather. But slightly improved pattern of breathing. Hemodialysis with 4.2 L removed yesterday. Urine output adequate 1.6 L in 24 hours. Patient better oriented today 09/29: Overall slightly improved tolerating facemask maintaining saturation above 92%. Occasionally confused per night RN. Hemodialysis again yesterday with 3.5 L removed. Chest x-ray overall improved compared to 09/27/2018. The recent increase in the right upper lobe infiltrate on chest x-ray today, but pulmonary edema has certainly improved 09/30: Today he appears more comfortable breathing comfortably good oxygen saturation above 95% on nasal cannula. Chest x-ray remains unchanged with bilateral upper lobe infiltrates. Improved compared to several days ago. Urine output adequate but creatinine has bumped to 4. Getting hemodialysis later today. Leukocytosis most likely secondary to steroids no evidence of new infection 10-01 TRANSFERRED TO OUR SERVICE TODAY Patient is laying down in bed. No acute distress. Complains of on and off shortness of breath. Comfortable currently on 5L oxygen. 10-02 HAS BEEN ACCEPT AT [facility] WILL TRANSFER TO THERE FOR AGGRESSIVE REHAB AND HD DW RN AND PT AND TUNNEL MAN DC THERE TODAY 10-03 TO GO TO [facility] TODAY DW CM AND RN WILL NEED PERMACATH DONE AT [facility] Physical Exam Vital signs: Vital Signs 10/02/18 11:00 10/02/18 12:00 10/02/18 12:15 Temperature 97.6 F Pulse Rate 82 81 Respiratory Rate 16 Blood Pressure 117/64 Pulse Oximetry 92 L 96 10/02/18 16:00 10/02/18 19:00 10/02/18 20:00 Temperature 98.4 F Pulse Rate 82 81 Respiratory Rate 18 Blood Pressure 96/57 L Pulse Oximetry 100 100 10/03/18 00:00 10/03/18 04:00 10/03/18 07:00 Temperature 98.5 F 98.5 F Pulse Rate 76 83 82 Respiratory Rate 16 16 Blood Pressure 104/57 L 144/80 H Pulse Oximetry 100 98 10/03/18 08:00 Temperature 97.4 F L Pulse Rate 86 Respiratory Rate 20 Blood Pressure 119/68 Pulse Oximetry 97 Intake & Output 10/02/18 10/03/18 10/03/18 18:59 06:59 18:59 Intake Total 240 / 240 Output Total 1999 50 / 50 Balance -1999 190 / 190 Weight 86.2 kg Intake: Oral 240 / 240 Output: Urine 50 / 50 Hemodialysis Amount 1999 Other: Date of Last Bowel Movement 09/30/18 10/03/18 10/03/18 # Bowel Movements 3 Narrative: Physical examination GENERAL: Elderly W/M alert no distress SKIN: Warm and dry. HEAD: Atraumatic. Normocephalic. EYES: Pupils equal and round. No scleral icterus. No injection or drainage. ENT: No nasal bleeding or discharge. Mucous membranes pink and moist. NECK: Trachea midline. No JVD. CARDIOVASCULAR: Regular rate and rhythm. RESPIRATORY: No accessory muscle use. Occ crackles at Bases. Breath sounds equal bilaterally. GASTROINTESTINAL: Abdomen soft, non-tender, nondistended. Hepatic and splenic margins not palpable. MUSCULOSKELETAL: Extremities without clubbing, cyanosis,but has edema. No obvious deformities. NEUROLOGICAL: Awake and alert. No obvious cranial nerve deficits. Motor grossly within normal limits. Normal speech. PSYCHIATRIC: Appropriate mood and affect. - Urinary Catheter Management Indwelling Urethral Catheter Cath placed during this visit: yes, but has since been removed by the nurse Reason for continuing: Hourly intake/output Insertion date: 09/18/18 Insertion time: 09:00 Removal date: 09/23/18 Removal time: 17:00 Straight Cath placed during this visit: no Results - Labs CBC & Chem 7: 10/03/18 07:27 10/03/18 07:27 Laboratory Results - last 24 hr 10/02/18 10/02/18 10/02/18 12:01 15:10 15:10 WBC 3.3 L RBC 3.15 L Hgb 9.5 L Hct 27.9 L MCV 88.3 MCH 30.2 MCHC 34.2 RDW 20.5 H Plt Count 51 L MPV 8.3 Prelim Diff (Auto) Slide review pending Neut % (Auto) 93.2 H Lymph % (Auto) 4.0 L [place] % (Auto) 1.6 Eos % (Auto) 1.0 Baso % (Auto) 0.2 Neut # (Auto) 3.1 Lymph # (Auto) 0.1 L [place] # (Auto) 0.1 Eos # (Auto) 0.0 Baso # (Auto) 0.0 WBC Differential . Diff Scan Auto diff confirmed Differential Comment . Platelet Estimate Low L Platelet Morphology Normal Dimorphic RBCs Ovalocytes 1+ H Sodium 142 Potassium 3.3 L Chloride 99 Carbon Dioxide 29.2 Anion Gap 14 BUN 86 H Creatinine 5.08 H Estimated GFR 11 L POC Glucose 342 H Random Glucose 301 H Calcium 8.4 L Phosphorus Magnesium 2.4 Total Bilirubin AST ALT Alkaline Phosphatase Total Protein Albumin 10/02/18 10/02/18 10/03/18 17:47 22:08 03:57 WBC RBC Hgb Hct MCV MCH MCHC RDW Plt Count MPV Prelim Diff (Auto) Neut % (Auto) Lymph % (Auto) [place] % (Auto) Eos % (Auto) Baso % (Auto) Neut # (Auto) Lymph # (Auto) [place] # (Auto) Eos # (Auto) Baso # (Auto) WBC Differential Diff Scan Differential Comment Platelet Estimate Platelet Morphology Dimorphic RBCs Ovalocytes Sodium Potassium Chloride Carbon Dioxide Anion Gap BUN Creatinine Estimated GFR POC Glucose 132 H 306 H 222 H Random Glucose Calcium Phosphorus Magnesium Total Bilirubin AST ALT Alkaline Phosphatase Total Protein Albumin 10/03/18 10/03/18 07:27 07:27 WBC 11.7 H D RBC 3.50 L Hgb 10.4 L Hct 30.9 L MCV 88.5 MCH 29.7 MCHC 33.5 RDW 21.6 H Plt Count 58 L MPV 8.5 Prelim Diff (Auto) Slide review pending Neut % (Auto) 90.2 H Lymph % (Auto) 4.9 L [place] % (Auto) 3.3 Eos % (Auto) 1.4 Baso % (Auto) 0.2 Neut # (Auto) 10.6 H Lymph # (Auto) 0.6 L [place] # (Auto) 0.4 Eos # (Auto) 0.2 Baso # (Auto) 0.0 WBC Differential . Diff Scan Auto diff confirmed Differential Comment . Platelet Estimate Low L Platelet Morphology Normal Dimorphic RBCs Present H Ovalocytes 1+ H Sodium 140 Potassium 3.3 L Chloride 101 Carbon Dioxide 26.7 Anion Gap 12 BUN 44 H Creatinine 3.67 H Estimated GFR 16 L POC Glucose Random Glucose 207 H Calcium 8.6 Phosphorus 4.0 Magnesium 2.1 Total Bilirubin 1.5 H AST 22 ALT 73 Alkaline Phosphatase 80 Total Protein 6.4 Albumin 3.3 L - Imaging ITS Impressions Abdomen/Bladder Ultrasound 09/11/18 00:00 CONCLUSION: 1. Increased renal cortical echogenicity characteristic of chronic parenchymal disease. 2. No evidence of hydronephrosis. 3. No suspicious masses identified. Liver Ultrasound 09/17/18 00:00 CONCLUSION: 1. There is a trace amount of ascites identified around the liver and spleen. 2. There is a small amount of pericholecystic fluid but no significant gallbladder wall thickening. This may represent ascites. 3. Echogenic debris in the dependent portion of the gallbladder. 4. Heterogeneous echotexture of the liver Chest X-Ray 10/01/18 00:00 CONCLUSION: 1. Improved patchy bilateral upper lobe airspace disease. 2. More confluent airspace consolidation in the left lower lung zone. - Procedures Date of procedure: 09/19/18 Pre-op diagnosis: pulmonary edema, acute kidney failure Post-op diagnosis: same Procedure: Endotracheal intubation The patient provided verbal consent for this procedure. His O2 sats were 88-90% on high flow nasal cannula and he had not improved from a respiratory standpoint with diuresis. He required placement of a vasc cath for initiation of hemodialysis and would not tolerate lying flat without significant O2 desaturation. The decision was made to intubate him for airway protection and invasive ventilatory support of acute hypoxic respiratory failure. A time out was called and the patient was identified by wrist band. A rapid sequence intubation was performed with etomidate, rocuronium, and an 8-0 ETT was easily passed on first attempt using Glidescope. Position was confirmed by bilateral breath sounds, color change capnometry, and improvement in O2 sats. Surgeon: Sierra Cohn Condition: stable Disposition: ICU Documented By: Sierra Cohn DO Date of procedure: 09/19/18 Pre-op diagnosis: pulmonary edema, acute renal failure Post-op diagnosis: same Procedure: Vascular catheter placement for initiation of hemodialysis The patient provided verbal consent for this procedure. He has persistent pulmonary edema and acute kidney injury which has not improved with diuresis. The decision was made to place a vasc cath for HD to assist with fluid removal. A time out was called and the patient was identified by wrist band. He was prepped with chlorhexidine and allowed to full dry, then a full-body sterile drape was applied. I wore full sterile gown, gloves, face mask, and hat. The right IJ was visualized under ultrasound guidance and 5 cc of 1% lidocaine without epinephrine was given for local anesthesia. The vessel was then accessed using Seldinger technique and serially dilated. The catheter was then placed without difficulty and blood flow returned from both lumens, flushed with saline. The catheter was sutured in place and a Biopatch and sterile dressing were applied. The patient tolerated the procedure well with no immediate complications. Surgeon: Sierra Cohn Condition: stable Disposition: ICU Documented By: Sierra Cohn DO AND STARTED ON HD Assessment and Plan - Assessment (1) Mood disorder due to known physiological condition with depressive features Code(s): F06.31 - Mood disorder due to known physiological condition with depressive features Status: Chronic (2) Gout Code(s): M10.9 - Gout, unspecified Status: Chronic (3) Hypertension Code(s): I10 - Essential (primary) hypertension Status: Chronic (4) Acute renal failure Code(s): N17.9 - Acute kidney failure, unspecified Status: Acute (5) COPD (chronic obstructive pulmonary disease) Code(s): J44.9 - Chronic obstructive pulmonary disease, unspecified Status: Chronic (6) Pneumonia Code(s): J18.9 - Pneumonia, unspecified organism Status: Acute - Plan ASSESSMENT 1. Acute hypoxemic respiratory failure-improving 2. Pulmonary edema/congestive heart failure 3. Probable ARDS 4. Left upper lobe pneumonia per CT chest. 5. Acute kidney failure 6. Agitated delirium 7. Coronary artery disease. CONTINUE ON ASPIRIN 8. Diabetes mellitus. 9. Hypertension. 10. Chronic obstructive pulmonary disease. 11. Leukocytosis 12. Transaminitis 13. Acute blood loss anemia 14: Sinus tachycardia with frequent PACs Plan This patient is a 78-year-old male with a diagnosis of COPD, hypertension, diabetes mellitus, coronary artery disease, and gout. The patient was initially admitted to the inpatient psych unit in mid August 2018 for suicidal ideation and acute kidney injury. The patient had a CT scan of the chest in early September which showed suspected left hilar mass and mild congestive heart failure with trace bilateral pleural effusions. He was also found to have a left upper lobe pneumonia as well as a questionable infiltrate in the right middle lobe. Patient was started on broad-spectrum antibiotics. During hospitalization he had a CAT was called as the patient was found to be hypoxic and was requiring supplemental oxygen. The patient's bilateral infiltrates got worse during the hospitalization and the patient was subsequently intubated. The patient's kidney function also continue to get worse during the hospitalization, he was also started on hemodialysis which is being continued on Sunday and Fridays. Neuro: Monitor neuro status. Up to chair daily, Haldol 4 mg IV every 6 hours as needed for agitation Continue Seroquel BID Pulm: Intubated 09/19 for continued pulmonary edema/ resp distress, extubated 09/25/2018 Pulmonary edema improving with hemodialysis and aggressive diuresis Possible ARDS cannot be ruled out Bronchodilators with albuterol/ipratropium aerosols every 4 hours with albuterol aerosols every 2 hours as needed dyspnea Prednisone 20 mg twice daily, Symbicort 160/4.5 two puffs b.i.d. Pulm is following-Dr. Garcia Oxygen saturation improving currently on nasal cannula CV: Cardizem 60 mg QID. continue metoprolol 5 mg IV every 6 hours PRN BP borderline during HD, albumin bolus PRN Echo on 08/30/2018 EF of 50% to 55%, concentric LV hypertrophy. PA pressure 32 mmHg. Hemodialysis with 4.2 L removed 09/27 and 3.2L 09/28. Hemodialysis planned for today : Monitor renal function, I's and O's, and avoid nephrotoxins. Renal US: No masses, no hydronephrosis Continue IV Bumex and IV Diuril Nephrology following (Dr. Krueger), dialysis 09/27, 09/28 ARF likely due to ATN 2nd Vanco tox. GI: on pantoprazole 40 mg IV daily for GI prophylaxis. Advance diet as tolerated Monitor LFT's, US liver showed only ascites ID: s/p 1 week treatment for CAP, afebrile, but persistent leukocytosis worsening with increased infiltrate on chest x-ray Repeat sputum culture, continue Zosyn renally dosed 09/12: normal resp zeb. Repeat blood and sputum culture. strep pneumonia and legionella urinary antigen negative Heme: Monitor CBC-- Hg stable Monitor RIJ vasc cath for oozing/ bleeding Endo: SSI with aspart insulin to medium scale with Accu-Chek for glycemic control Hold allopurinol until kidney function recovers GI prophylaxis with pantoprazole 40 mg daily DVT prophylaxis with SCD and hold SQH due to hemoptysis DC TO [facility] TODAY Code Status: FULL CODE Discussed Condition With: RN AND PT AND CM Discharge Planning: TRANSFER TO [facility] WHEN ARRANGEMENTS ARE MADE
== END 2018-10-03 11:24 | disposition short-term general hospital (02) ==
LOC: HIMC 16:12 → HCIS 10-01 18:45
PROVIDERS: ADMIT Hospitalist; ATTEND Hospitalist